=== PATIENT | female | born 1950 | race Caucasian/White ===

== ENCOUNTER 2018-11-14 09:57 | Inpatient (IN) ==
[2018-11-14] MEDS ORDERED: 0.9 % Sodium Chloride 1,000 ML IVC ONE (10:21)
[2018-11-14 10:44] LABS: Basophils # 0.1 K/mcL (0.0-0.2); Basophils % 0.9 %; Eosinophils # 1.3 K/mcL (0.0-0.6); Eosinophils % 14.5 %; Hematocrit 33.7 % (35.3-44.9); Hemoglobin 10.6 g/dL (11.5-15.4); Immature Granulocytes % 0.2 % (0-4); Lymphocytes # 1.7 K/mcL (0.6-4.6); Lymphocytes % 19.3 %; Mean Corpuscular HGB Conc 31.5 g/dL (31.6-35.5); Mean Corpuscular Hemoglobin 26.7 pg (28.0-33.3); Mean Corpuscular Volume 84.9 fL (83.0-100.0); Mean Platelet Volume 9.6 fL (9.4-12.4); Monocytes # 0.5 K/mcL (0.0-1.3); Monocytes % 5.6 %; Neutrophils # 5.3 K/mcL (1.6-8.9); Platelet Count 279 K/mcL (140-400); Red Blood Count 3.97 M/mcL (3.82-4.97); Red Cell Distribution Width 14.5 % (11.5-14.5); Segmented Neutrophils % 59.5 %
[2018-11-14 10:46] LABS: VBG Ionized Calcium 1.19 mmol/L (1.15-1.35)
[2018-11-14 10:52] LABS: Bilirubin,Urine Negative (Negative); Blood,Urine Negative (Negative); Clarity,Urine Clear (Clear); Color,Urine Yellow (Yellow); Glucose,Urine (UA) Normal (Normal); Ketones,Urine Negative (Negative); Leukocyte Esterase,Urine Negative (Negative); Nitrite,Urine Negative (Negative); Protein,Urine 30 mg/dL (Neg-Trace); Specific Gravity,Urine 1.012 (1.010-1.025); Urobilinogen,Urine Normal (Normal)
[2018-11-14 10:53] LABS: Hyaline Casts,Urine None Seen per lpf (None-Few); Squamous Epithelial Cell,Urine Many per lpf (None-Few); WBC,Urine 0-3 per hpf (0-3)
--- NOTE | 2018-11-14 10:56 | Emergency Department Note ---
Disposition Clinical Impression: Elevated troponin, BJ (acute kidney injury), Weakness Disposition: Admitted As Inpatient Condition: Fair Forms: ED Satisfaction Letter Time of Disposition: 11:37 General Adult HPI - General Chief complaint: ED Recheck/Abnormal Lab/Rx Stated complaint: Kidneys are low Time Seen by Provider: 11/14/18 10:05 Source: patient, family Mode of arrival: private vehicle Limitations: no limitations Nursing Notes Reviewed: Yes Vital Signs Reviewed: Yes - History of Present Illness HPI Narrative: Patient is a 68-year-old female with a past medical history of high blood pressure, COPD, remote history of lung cancer with lung resection of the left upper lobe, recent left heart catheter performed here 1 month ago, that has not felt well since the heart catheter. Patient was seen at her PCPs office for some blood work within the last few days, blood work came back this morning and PCP called her to tell her that her kidney function was low and that she should report to the emergency department. Patient states she does not think she has a history of any kidney disease. She states that she has been feeling "weak, washed out" since the procedure. She is complaining of a headache, intermittent stomach pains, one episode of vomiting a couple of days ago, intermittent fevers that she has not measured within the last couple of days, and feels like she cannot hold herself up if she walks too far. Pain Scale: 0 - Related Data Home Medications Medication Instructions Recorded Confirmed Acetylcysteine 600 mg PO BID 10/21/18 10/21/18 [[id number]-[id number]] Atenolol [Tenormin] 50 mg PO DAILY 10/21/18 10/21/18 Clopidogrel [Plavix] 75 mg PO DAILY 10/21/18 10/21/18 Fluticasone/Salmeterol [Advair 1 each IH BID 10/21/18 10/21/18 250-50 Diskus] Ipratropium/Albuterol Neb [Duoneb] 3 ml IH Q6HR 10/21/18 10/21/18 LORazepam [Ativan] 1 mg PO TID PRN 10/21/18 10/21/18 Levothyroxine [Synthroid] 75 mcg PO 0630 10/21/18 10/21/18 Losartan Potassium [Cozaar] 50 mg PO BID 10/21/18 10/21/18 Omeprazole [PriLOSEC] 20 mg PO DAILY 10/21/18 10/21/18 amLODIPine [Norvasc] 5 mg PO DAILY 10/21/18 10/21/18 Previous Rx's Medication Instructions Recorded Meclizine HCl [Verticalm] 25 mg PO BID PRN #10 tablet 01/29/18 Aspirin 81 mg PO DAILY #30 tab.chew 10/22/18 Atorvastatin [Lipitor] 40 mg PO HS #30 tablet 10/22/18 Azithromycin [Zithromax] 500 mg PO DAILY #5 tablet 10/22/18 predniSONE [PredniSONE] 40 mg PO DAILY #5 tablet 10/22/18 Allergies Allergy/AdvReac Type Severity Reaction Status Date / Time doxycycline Allergy Rash Verified 10/21/18 16:25 Sulfa (Sulfonamide Allergy Rash Verified 10/21/18 16:25 Antibiotics) codeine AdvReac Nausea Verified 10/21/18 16:25 hydrocodone [From Vicodin] AdvReac Irritable Verified 10/21/18 16:25 Review of Systems: All systems ED: reviewed and negative except as stated. Constitutional: Denies: chills Reports: intermittent subjective fevers ENT ED: Denies: ear pain, throat pain Cardiovascular: Denies: chest pain, palpitations Respiratory: Reports: dry cough, dyspnea Gastrointestinal: Denies: constipation Reports: intermittent abdominal pain, intermittent nausea, one episode of vomiting a few days ago, daily diarrhea 2-3 episodes per day, Genitourinary: Denies: urgency, dysuria, frequency Musculoskeletal: Denies: back pain, neck pain Integumentary: Denies: rash, abrasion Neurological: Denies: headache, numbness, paresthesias Reports: weakness Psychiatric: Denies: anxiety, depression Endocrine: Denies: fatigue, heat or cold intolerance Hematological/Lymphatic: Denies: easy bleeding, easy bruising Allergic/Immunologic: Denies: facial swelling, urticaria Past Medical History - Past Medical History Medical history: Reports: asthma, COPD, CVA, hypertension, other Surgical history: Reports: appendectomy, cholecystectomy Psychiatric history: Reports: anxiety - Social History Smoking Status: Current every day smoker Smokeless Tobacco Status: No Alcohol use: Reports: none Drug use: Reports: none Physical Exam General: A&O x 3. No acute distress. Well developed, thin female. Head: atraumatic, normocephalic. ENT: No conjunctival injection, no scleral icterus. PERRLA. EOMI. Oropharynx non- erythematous. mucous membranes tacky. Neuro: No focal deficits, no speech deficit, no facial droop, mentating well. BUE/BLE Str 5/5. Pulm: No lungs sounds over FLORENCIO, wheezes appreciated in LLL, diminished lung sounds on right side in both upper and lower castro Cardio: Extra heart sound appreciated with regular rate. Chest not tender to palpation. Abd: Soft, non-distended. Normoactive bowel sounds. Diffusely mildly tender to palpation. No guarding. Non rigid. Extremities: Radial pulses 2+ ira. No appreciable distal pulse in LLE but limb is warm, dry, well perfused and free of rashes and erythema, RLE has 2+ posterior tibialis. No LE edema. No cyanosis, clubbing. Skin: warm, dry, intact. No rashes. Psych: Appropriate mood and affect. Answers questions appropriately. Cooperative with exam. - General Limitations: no limitations General appearance: alert Course Course Narrative: Ddx includes but is not limited to: BJ, electrolyte abnormality, hypothyroid, anemia, UTI, PNA, ACS Workup will include: CBC, CMP, BNP, TSH, troponin, EKG, CXR. Will administer fluids. - Reevaluation(s) Reevaluation #1: Pt has positive troponin 0.05 and creatinine elevated 4.7 Time: 11:23 - Consultations Consultation #1: Spoke with Dr. Abdullahi, nephrology, and made him aware of pt's creatinine and elevated troponin and that she would be admitted. He recommended continued hydration and HD if hydration did not help. Time: 11:24 Consultation #2: Spoke with Dr. Mcdonnell, cardiology, and made him aware of pt's elevated troponin in setting of BJ and recent C 10/22/18. He had no recommendations at this time. Time: 11:28 Vital Signs Temperature 97.8 F 11/14/18 09:58 Pulse Rate 79 11/14/18 09:58 Respiratory Rate 18 11/14/18 09:58 Blood Pressure 152/82 11/14/18 09:58 O2 Sat by Pulse Oximetry 96 11/14/18 09:58 Temperature 97.8 F 11/14/18 09:58 Pulse Rate 73 11/14/18 11:28 Respiratory Rate 16 11/14/18 11:28 Blood Pressure 155/77 11/14/18 11:28 O2 Sat by Pulse Oximetry 97 11/14/18 11:28 Oxygen Delivery Oxygen Delivery Room Air Medical Decision Making - MDM Narrative Medical decision making narrative: Pt creatinine was elevated >4.7 and had positive troponin of 0.05 without hx of positive troponin in our system. Pt has acute kidney injury with elevated troponin. She is not having chest pain at this time. EKG does not show any signs concerning for ischemia. Nephrology and Cardiology were made aware, see course notes for full details. Pt was given an oral aspirin and 1L NaCl while in the department. Nephro recommends continued hydration with HD if hydration not effective. Patient was given an opportunity to ask questions at bedside and all of their concerns were addressed. Patient verbalized understanding and agreement with plan of care. Pt remained stable while in the department. - Medical Records Medical records reviewed: Yes I reviewed the patient's medical records. - Lab Data Lab results reviewed: Yes I reviewed the patient's lab results. Result diagrams: 11/14/18 10:24 11/14/18 10:24 Lab Results 11/14/18 11/14/18 11/14/18 Range/Units 10:13 10:24 10:24 WBC 8.9 (4.3-11.1) K/mcL RBC 3.97 (3.82-4.97) M/mcL Hgb 10.6 L (11.5-15.4) g/dL Hct 33.7 L (35.3-44.9) % MCV 84.9 (83.0-100.0) fL MCH 26.7 L (28.0-33.3) pg MCHC 31.5 L (31.6-35.5) g/dL RDW 14.5 (11.5-14.5) % Plt Count 279 (140-400) K/mcL MPV 9.6 (9.4-12.4) fL Immature Gran % 0.2 (0-4) % Seg Neutrophils % 59.5 % Lymphocytes % 19.3 % Monocytes % 5.6 % Eosinophils % 14.5 % Basophils % 0.9 % Neutrophils # 5.3 (1.6-8.9) K/mcL Lymphocytes # 1.7 (0.6-4.6) K/mcL Monocytes # 0.5 (0.0-1.3) K/mcL Eosinophils # 1.3 H (0.0-0.6) K/mcL Basophils # 0.1 (0.0-0.2) K/mcL Sodium 133 L (136-145) mEq/L Potassium 4.8 (3.5-5.1) mEq/L Chloride 102 (98-107) mEq/L Carbon Dioxide 22 L (23-29) mEq/L BUN 74 H (8-23) mg/dL Creatinine 4.73 H (0.60-1.20) mg/dL Est GFR ( Amer) 11 L (> 60) Est GFR (Non-Af Amer) 9 L (> 60) BUN/Creatinine Ratio 16 (6-26) Glucose 108 H (70-105) mg/dL Calculated Osmolality 298 (280-300) Lactic Acid (0.5-2.2) mmol/L Calcium 9.1 (8.6-10.3) mg/dL Venous Ioniz Calcium (1.15-1.35) mmol/L Phosphorus 5.0 H (2.7-4.5) mg/dL Magnesium 1.6 (1.6-2.6) mg/dL Total Bilirubin 0.4 (0.3-1.0) mg/dL AST 18 (13-39) Units/L ALT 16 (7-52) Units/L Alkaline Phosphatase 75 (34-104) Units/L Troponin I 0.05 H* (< 0.04) ng/mL Serum Total Protein 6.6 (6.4-8.9) g/dL Albumin 3.7 (3.5-5.7) g/dL Globulin 2.9 (2.4-3.5) g/dL Albumin/Globulin Ratio 1.3 (1.1-2.2) Lipase 44 (11-82) Units/L TSH 8.042 H (0.340-5.600) mcIU/mL Urine Color Yellow (Yellow) Urine Clarity Clear (Clear) Urine pH 6.0 (5.0-8.0) pH Units Ur Specific [place] 1.012 (1.010-1.025) Urine Protein 30 H (Neg-Trace) mg/dL Urine Glucose (UA) Normal (Normal) mg/dL Urine Ketones Negative (Negative) mg/dL Urine Blood Negative (Negative) Urine Nitrite Negative (Negative) Urine Bilirubin Negative (Negative) Urine Urobilinogen Normal (Normal) mg/dL Ur Leukocyte Esterase Negative (Negative) Urine Microscopic WBC 0-3 (0-3) per hpf Ur Squamous Epith Cells Many H (None-Few) per lpf Urine Bacteria Few (None-Few) per hpf Hyaline Casts None Seen (None-Few) per lpf Ur Culture Indicated? NO (NO) 11/14/18 11/14/18 Range/Units 10:37 10:42 WBC (4.3-11.1) K/mcL RBC (3.82-4.97) M/mcL Hgb (11.5-15.4) g/dL Hct (35.3-44.9) % MCV (83.0-100.0) fL MCH (28.0-33.3) pg MCHC (31.6-35.5) g/dL RDW (11.5-14.5) % Plt Count (140-400) K/mcL MPV (9.4-12.4) fL Immature Gran % (0-4) % Seg Neutrophils % % Lymphocytes % % Monocytes % % Eosinophils % % Basophils % % Neutrophils # (1.6-8.9) K/mcL Lymphocytes # (0.6-4.6) K/mcL Monocytes # (0.0-1.3) K/mcL Eosinophils # (0.0-0.6) K/mcL Basophils # (0.0-0.2) K/mcL Sodium (136-145) mEq/L Potassium (3.5-5.1) mEq/L Chloride (98-107) mEq/L Carbon Dioxide (23-29) mEq/L BUN (8-23) mg/dL Creatinine (0.60-1.20) mg/dL Est GFR ( Amer) (> 60) Est GFR (Non-Af Amer) (> 60) BUN/Creatinine Ratio (6-26) Glucose (70-105) mg/dL Calculated Osmolality (280-300) Lactic Acid 0.8 (0.5-2.2) mmol/L Calcium (8.6-10.3) mg/dL Venous Ioniz Calcium 1.19 (1.15-1.35) mmol/L Phosphorus (2.7-4.5) mg/dL Magnesium (1.6-2.6) mg/dL Total Bilirubin (0.3-1.0) mg/dL AST (13-39) Units/L ALT (7-52) Units/L Alkaline Phosphatase (34-104) Units/L Troponin I (< 0.04) ng/mL Serum Total Protein (6.4-8.9) g/dL Albumin (3.5-5.7) g/dL Globulin (2.4-3.5) g/dL Albumin/Globulin Ratio (1.1-2.2) Lipase (11-82) Units/L TSH (0.340-5.600) mcIU/mL Urine Color (Yellow) Urine Clarity (Clear) Urine pH (5.0-8.0) pH Units Ur Specific [place] (1.010-1.025) Urine Protein (Neg-Trace) mg/dL Urine Glucose (UA) (Normal) mg/dL Urine Ketones (Negative) mg/dL Urine Blood (Negative) Urine Nitrite (Negative) Urine Bilirubin (Negative) Urine Urobilinogen (Normal) mg/dL Ur Leukocyte Esterase (Negative) Urine Microscopic WBC (0-3) per hpf Ur Squamous Epith Cells (None-Few) per lpf Urine Bacteria (None-Few) per hpf Hyaline Casts (None-Few) per lpf Ur Culture Indicated? (NO) - Radiology Data Radiology results reviewed: Yes I reviewed the patient's radiology results. Chest X-Ray 11/14/18 10:21 IMPRESSION: Stable tiny bilateral pleural effusions and mild pulmonary vascular congestion D/ / Ifeanyi Morrell MD / Ifeanyi Morrell MD Interpreting Provider: Ifeanyi Morrell MD - EKG Data EKG #1 EKG attestation: Yes I reviewed and interpreted this EKG. EKG results narrative: HR 70, rhythm sinus, axis normal. ID [id number], QRS 89, QTc 450. No evidence of clinically significant ST elevation or depression. No criteria for LVH.
[2018-11-14 11:06] LABS: Bacteria,Urine Few per hpf (None-Few)
[2018-11-14 11:15] LABS: Albumin 3.7 g/dL (3.5-5.7); Albumin/Globulin Ratio 1.3 (1.1-2.2); Bilirubin,Total 0.4 mg/dL (0.3-1.0); Calcium 9.1 mg/dL (8.6-10.3); Globulin 2.9 g/dL (2.4-3.5); Magnesium 1.6 mg/dL (1.6-2.6); Potassium 4.8 mEq/L (3.5-5.1); Total Protein 6.6 g/dL (6.4-8.9); Troponin I 0.05 ng/mL (< 0.04)
[2018-11-14] MEDS ORDERED: Aspirin 325 MG TABLET PO ONE (11:15)
[2018-11-14 11:27] LABS: Thyroid Stimulating Hormone 8.042 mcIU/mL (0.340-5.600)
[2018-11-14] MEDS ORDERED: Naloxone 0.4 MG/ML INJ IVP PRN (11:34)
--- NOTE | 2018-11-14 12:10 | Emergency Department Note ---
Disposition Clinical Impression: Elevated troponin, BJ (acute kidney injury), Weakness Disposition: Admitted As Inpatient Condition: Fair Referrals: Topete,Patricia Dick CNP [Primary Care Provider] - Forms: ED Satisfaction Letter General Adult HPI - General Chief complaint: ED Recheck/Abnormal Lab/Rx Stated complaint: Kidneys are low Time Seen by Provider: 11/14/18 10:05 Source: patient, family Mode of arrival: private vehicle Limitations: no limitations - History of Present Illness Pain Scale: 0 - Related Data Home Medications Medication Instructions Recorded Confirmed Atenolol [Tenormin] 50 mg PO DAILY 10/21/18 11/14/18 Clopidogrel [Plavix] 75 mg PO DAILY 10/21/18 11/14/18 Fluticasone/Salmeterol [Advair 1 puff IH BID 10/21/18 11/14/18 250-50 Diskus] LORazepam [Ativan] 1 mg PO TID 10/21/18 11/14/18 Levothyroxine [Synthroid] 75 mcg PO QAM 10/21/18 11/14/18 Losartan Potassium [Cozaar] 50 mg PO BID 10/21/18 11/14/18 Omeprazole [PriLOSEC] 20 mg PO DAILY 10/21/18 11/14/18 amLODIPine [Norvasc] 5 mg PO DAILY 10/21/18 11/14/18 Albuterol Sulfate [Ventolin Hfa] 2 puff IH Q4H PRN 11/14/18 11/14/18 Aspirin [Adult Aspirin Regimen] 81 mg PO DAILY 11/14/18 11/14/18 Ipratropium [place] 1 each IH Q4-6H PRN 11/14/18 11/14/18 Ipratropium/Albuterol Sulfate 3 ml IH Q6H PRN 11/14/18 11/14/18 [Iprat-Albut 0.5-3(2.5) mg/3 ml] Previous Rx's Medication Instructions Recorded Meclizine HCl [Verticalm] 25 mg PO BID PRN #10 tablet 01/29/18 Allergies Allergy/AdvReac Type Severity Reaction Status Date / Time atorvastatin Allergy See Verified 11/14/18 11:40 Comments doxycycline Allergy Rash Verified 10/21/18 16:25 Sulfa (Sulfonamide Allergy Rash Verified 10/21/18 16:25 Antibiotics) codeine AdvReac Nausea Verified 10/21/18 16:25 hydrocodone [From Vicodin] AdvReac Irritable Verified 10/21/18 16:25 Past Medical History - Past Medical History Medical history: Reports: asthma, COPD, CVA, hypertension, other Surgical history: Reports: appendectomy, cholecystectomy Psychiatric history: Reports: anxiety - Social History Smoking Status: Current every day smoker Smokeless Tobacco Status: No Alcohol use: Reports: none Drug use: Reports: none Physical Exam - General Limitations: no limitations General appearance: alert Course Vital Signs Temperature 97.8 F 11/14/18 09:58 Pulse Rate 79 11/14/18 09:58 Respiratory Rate 18 11/14/18 09:58 Blood Pressure 152/82 11/14/18 09:58 O2 Sat by Pulse Oximetry 96 11/14/18 09:58 Temperature 97.8 F 11/14/18 09:58 Pulse Rate 73 11/14/18 11:28 Respiratory Rate 16 11/14/18 11:28 Blood Pressure 155/77 11/14/18 11:28 O2 Sat by Pulse Oximetry 97 11/14/18 11:28 Oxygen Delivery Oxygen Delivery Room Air Medical Decision Making - Lab Data Result diagrams: 11/14/18 10:24 11/14/18 10:24 Lab Results 11/14/18 11/14/18 11/14/18 Range/Units 10:13 10:24 10:24 WBC 8.9 (4.3-11.1) K/mcL RBC 3.97 (3.82-4.97) M/mcL Hgb 10.6 L (11.5-15.4) g/dL Hct 33.7 L (35.3-44.9) % MCV 84.9 (83.0-100.0) fL MCH 26.7 L (28.0-33.3) pg MCHC 31.5 L (31.6-35.5) g/dL RDW 14.5 (11.5-14.5) % Plt Count 279 (140-400) K/mcL MPV 9.6 (9.4-12.4) fL Immature Gran % 0.2 (0-4) % Seg Neutrophils % 59.5 % Lymphocytes % 19.3 % Monocytes % 5.6 % Eosinophils % 14.5 % Basophils % 0.9 % Neutrophils # 5.3 (1.6-8.9) K/mcL Lymphocytes # 1.7 (0.6-4.6) K/mcL Monocytes # 0.5 (0.0-1.3) K/mcL Eosinophils # 1.3 H (0.0-0.6) K/mcL Basophils # 0.1 (0.0-0.2) K/mcL Sodium 133 L (136-145) mEq/L Potassium 4.8 (3.5-5.1) mEq/L Chloride 102 (98-107) mEq/L Carbon Dioxide 22 L (23-29) mEq/L BUN 74 H (8-23) mg/dL Creatinine 4.73 H (0.60-1.20) mg/dL Est GFR ( Amer) 11 L (> 60) Est GFR (Non-Af Amer) 9 L (> 60) BUN/Creatinine Ratio 16 (6-26) Glucose 108 H (70-105) mg/dL Calculated Osmolality 298 (280-300) Lactic Acid (0.5-2.2) mmol/L Calcium 9.1 (8.6-10.3) mg/dL Venous Ioniz Calcium (1.15-1.35) mmol/L Phosphorus 5.0 H (2.7-4.5) mg/dL Magnesium 1.6 (1.6-2.6) mg/dL Total Bilirubin 0.4 (0.3-1.0) mg/dL AST 18 (13-39) Units/L ALT 16 (7-52) Units/L Alkaline Phosphatase 75 (34-104) Units/L Troponin I 0.05 H* (< 0.04) ng/mL B-Natriuretic Peptide (Less than 100) pg/mL Serum Total Protein 6.6 (6.4-8.9) g/dL Albumin 3.7 (3.5-5.7) g/dL Globulin 2.9 (2.4-3.5) g/dL Albumin/Globulin Ratio 1.3 (1.1-2.2) Lipase 44 (11-82) Units/L TSH 8.042 H (0.340-5.600) mcIU/mL Urine Color Yellow (Yellow) Urine Clarity Clear (Clear) Urine pH 6.0 (5.0-8.0) pH Units Ur Specific [place] 1.012 (1.010-1.025) Urine Protein 30 H (Neg-Trace) mg/dL Urine Glucose (UA) Normal (Normal) mg/dL Urine Ketones Negative (Negative) mg/dL Urine Blood Negative (Negative) Urine Nitrite Negative (Negative) Urine Bilirubin Negative (Negative) Urine Urobilinogen Normal (Normal) mg/dL Ur Leukocyte Esterase Negative (Negative) Urine Microscopic WBC 0-3 (0-3) per hpf Ur Squamous Epith Cells Many H (None-Few) per lpf Urine Bacteria Few (None-Few) per hpf Hyaline Casts None Seen (None-Few) per lpf Ur Culture Indicated? NO (NO) 11/14/18 11/14/18 11/14/18 Range/Units 10:24 10:37 10:42 WBC (4.3-11.1) K/mcL RBC (3.82-4.97) M/mcL Hgb (11.5-15.4) g/dL Hct (35.3-44.9) % MCV (83.0-100.0) fL MCH (28.0-33.3) pg MCHC (31.6-35.5) g/dL RDW (11.5-14.5) % Plt Count (140-400) K/mcL MPV (9.4-12.4) fL Immature Gran % (0-4) % Seg Neutrophils % % Lymphocytes % % Monocytes % % Eosinophils % % Basophils % % Neutrophils # (1.6-8.9) K/mcL Lymphocytes # (0.6-4.6) K/mcL Monocytes # (0.0-1.3) K/mcL Eosinophils # (0.0-0.6) K/mcL Basophils # (0.0-0.2) K/mcL Sodium (136-145) mEq/L Potassium (3.5-5.1) mEq/L Chloride (98-107) mEq/L Carbon Dioxide (23-29) mEq/L BUN (8-23) mg/dL Creatinine (0.60-1.20) mg/dL Est GFR ( Amer) (> 60) Est GFR (Non-Af Amer) (> 60) BUN/Creatinine Ratio (6-26) Glucose (70-105) mg/dL Calculated Osmolality (280-300) Lactic Acid 0.8 (0.5-2.2) mmol/L Calcium (8.6-10.3) mg/dL Venous Ioniz Calcium 1.19 (1.15-1.35) mmol/L Phosphorus (2.7-4.5) mg/dL Magnesium (1.6-2.6) mg/dL Total Bilirubin (0.3-1.0) mg/dL AST (13-39) Units/L ALT (7-52) Units/L Alkaline Phosphatase (34-104) Units/L Troponin I (< 0.04) ng/mL B-Natriuretic Peptide 371 H (Less than 100) pg/mL Serum Total Protein (6.4-8.9) g/dL Albumin (3.5-5.7) g/dL Globulin (2.4-3.5) g/dL Albumin/Globulin Ratio (1.1-2.2) Lipase (11-82) Units/L TSH (0.340-5.600) mcIU/mL Urine Color (Yellow) Urine Clarity (Clear) Urine pH (5.0-8.0) pH Units Ur Specific [place] (1.010-1.025) Urine Protein (Neg-Trace) mg/dL Urine Glucose (UA) (Normal) mg/dL Urine Ketones (Negative) mg/dL Urine Blood (Negative) Urine Nitrite (Negative) Urine Bilirubin (Negative) Urine Urobilinogen (Normal) mg/dL Ur Leukocyte Esterase (Negative) Urine Microscopic WBC (0-3) per hpf Ur Squamous Epith Cells (None-Few) per lpf Urine Bacteria (None-Few) per hpf Hyaline Casts (None-Few) per lpf Ur Culture Indicated? (NO) Attestation Statement - Attestation Attestation: I examined this patient and my medical decision-making was reviewed with the Resident Physician. I agree with the documented findings, disposition and treatment plan as described except to the extent set forth below. 68 year old female presents to the ED with complaints of acute kidney failure. She has been feeling fatigue and weaknes nd recently had a heart cath at the end of september with the result of one stent. Patinet otherwise has new kidney failure with an elevate troponin. potassium is normal. we have started IVF hydration. consulted nephroogy with Dr. Abdullahi who reccs IVF and possible dialysis if it does not improve. They are in the belief system of the [employer] and do not wish to have blood products or transfusions. They have acceptd admission to the hospital today. admiteed to medicine
--- NOTE | 2018-11-14 12:59 | Internal Med History&Physical ---
Date of Encounter: 11/14/18 Time of Encounter: 12:53 Internal Medicine - H&P: HPI Chief complaint: worsening kidney function Admitted From: Home History of present illness: Ms. Weeks is a 68 year old female PMH of CAD s/p [facility] on October 22, HLD, hypothyroidism, COPD on 2 litters of O2 at home at night, and HTN. Patient presented to the ED due to worsening kidney function. Patient reports on October 22 she had an LCH and the following day was discharged home. After being discharged she reports worsening generalized weakness, reports it is hard for her to walk because she feels like her legs are going to give up on her due to the weakness. She also reports she has not been eating well, because she feels very nauseated. Reports she went to see her PCP yesterday due to this symptoms and had some blood work done and was discharged home. Today she received a call from her PCP office instructing her to go to the ED due to worsening kidney function. Her creat on DC on was 1.52, today 4.73. Patient reports good urinary output. Denies diarrhea, but reports increase bowel frequency to 2-3 loose stool a day. denies abdominal pain, fever or chills. Past Med Surg Social Fam HX - Past Medical History Medical history: asthma, COPD, CVA, hypertension, other Additional medical history: heart cath , heart stent, lung cancer Psychiatric history: anxiety - Past Surgical History Surgical History: appendectomy, cholecystectomy Additional surgical history: upper left lobe removed, stents x3 - Social History Smoking Status: Current every day smoker Smokeless Tobacco Status: No Alcohol use: none Drug use: none Internal Medicine - H&P: Meds Meclizine HCl [Verticalm] 25 mg PO BID PRN #10 tablet 01/29/18 [Rx] Atenolol [Tenormin] 50 mg PO DAILY 10/21/18 [History] Clopidogrel [Plavix] 75 mg PO DAILY 10/21/18 [History] Fluticasone/Salmeterol [Advair 250-50 Diskus] 1 puff IH BID 10/21/18 [History] LORazepam [Ativan] 1 mg PO TID 10/21/18 [History] Levothyroxine [Synthroid] 75 mcg PO QAM 10/21/18 [History] Losartan Potassium [Cozaar] 50 mg PO BID 10/21/18 [History] Omeprazole [PriLOSEC] 20 mg PO DAILY 10/21/18 [History] amLODIPine [Norvasc] 5 mg PO DAILY 10/21/18 [History] Albuterol Sulfate [Ventolin Hfa] 2 puff IH Q4H PRN 11/14/18 [History] Aspirin [Adult Aspirin Regimen] 81 mg PO DAILY 11/14/18 [History] Ipratropium [place] 1 each IH Q4-6H PRN 11/14/18 [History] Ipratropium/Albuterol Sulfate [Iprat-Albut 0.5-3(2.5) mg/3 ml] 3 ml IH Q6H PRN 11/14/18 [History] Allergy/AdvReac Type Severity Reaction Status Date / Time atorvastatin Allergy See Verified 11/14/18 11:40 Comments doxycycline Allergy Rash Verified 10/21/18 16:25 Sulfa (Sulfonamide Allergy Rash Verified 10/21/18 16:25 Antibiotics) codeine AdvReac Nausea Verified 10/21/18 16:25 hydrocodone [From Vicodin] AdvReac Irritable Verified 10/21/18 16:25 All Systems PM: A 10-system review of systems was performed and is negative for pertinent findings except as documented above in the HPI. - Constitutional Constitutional: weakness, no chills, no lethargy - EENT Eyes: no dry eye, no irritation Nose, mouth and throat: no nasal congestion - Cardiovascular Cardiovascular ROS IM: no chest pain, no dyspnea on exertion, no edema, no lightheadedness, no orthopnea, no palpitations - Respiratory Respiratory: no cough, no wheezing - Gastrointestinal Gastrointestinal: no abdominal pain, no nausea, no vomiting - Genitourinary Genitourinary: no dysuria, no urinary frequency, no urinary hesitancy, no urinary urgency, no vaginal discharge - Musculoskeletal Musculoskeletal ROS IM: muscle weakness, no atrophy, no muscle cramps - Integumentary Integumentary IM: no rash, no jaundice - Neurological Neurological ROS: no confusion, no headache(s) - Psychiatric Psychiatric: no anxiety, no irritability - Endocrine Endocrine IM: no cold intolerance, no excessive sweating - Hematologic/Lymphatic Hematologic/Lymphatic: no easy bleeding - Allergic/Immunologic Allergic/Immunologic: no GI upset with certain foods - Constitutional Vitals: Temp Pulse Resp BP Pulse Ox 97.8 F 73 16 166/84 99 11/14/18 09:58 11/14/18 12:18 11/14/18 12:18 11/14/18 12:18 11/14/18 12:18 Exam: Vitals: reviewed General: Alert and oriented x4. In mild distress due to generalized weakness Skin: Normal color, no rash, no lesions. HEENT: EOM, pupils equal, round and reactive. Cardiovascular: RRR, normal S1 & S2, no rubs, murmurs or gallops. No JVD. Pulse regular. Lungs: CTA b/l , no wheezes or crackles. Abdomen: Soft, non-tender, no rigidity. Extremities: No deformity, no edema or tenderness, no joint swelling or clubbing. Neurological:Normal cognition and motor skills. Rest of the physical exam is non contributory Internal Med - H&P Results - Labs CBC & Chem 7: 11/14/18 10:24 11/14/18 10:24 Labs: Short CBC 11/14/18 Range/Units 10:24 WBC 8.9 (4.3-11.1) K/mcL Hgb 10.6 L (11.5-15.4) g/dL Hct 33.7 L (35.3-44.9) % Plt Count 279 (140-400) K/mcL Neutrophils # 5.3 (1.6-8.9) K/mcL BMP 11/14/18 10:24 Sodium 133 L Potassium 4.8 Chloride 102 Carbon Dioxide 22 L BUN 74 H Creatinine 4.73 H Glucose 108 H Calcium 9.1 Cardiac Enzymes 11/14/18 Range/Units 10:24 Troponin I 0.05 H* (< 0.04) ng/mL Liver Function 11/14/18 Range/Units 10:24 Total Bilirubin 0.4 (0.3-1.0) mg/dL AST 18 (13-39) Units/L ALT 16 (7-52) Units/L Alkaline Phosphatase 75 (34-104) Units/L Albumin 3.7 (3.5-5.7) g/dL Urine 11/14/18 Range/Units 10:13 Urine Color Yellow (Yellow) Urine Clarity Clear (Clear) Urine pH 6.0 (5.0-8.0) pH Units Ur Specific [place] 1.012 (1.010-1.025) Urine Protein 30 H (Neg-Trace) mg/dL Urine Glucose (UA) Normal (Normal) mg/dL - Impressions ITS Impressions Chest X-Ray 11/14/18 10:21 IMPRESSION: Stable tiny bilateral pleural effusions and mild pulmonary vascular congestion D/ / Ifeanyi Morrell MD / Ifeanyi Morrell MD Interpreting Provider: Ifeanyi Morrell MD - Diagnostic Studies Chest x-ray Status: image reviewed by me (small b/l pleural effusion) - Assessment and Plan (1) BJ (acute kidney injury) Current Visit: Yes Status: Acute Assessment and plan: Possible secondary to contrast induced, versus decreased by mouth intake. Plan avoid nephrotoxic medications started on IV hydration with NS @75ml/hr Urine electrolytes CPK and uric acid ordered retro-peritoneal us strict intake and output nephrology consulted recommendations appreciated (2) COPD (chronic obstructive pulmonary disease) Current Visit: Yes Status: Chronic Assessment and plan: Patient not on acute exacerbation. Bronchodilators Q4RT when necessary. Qualifiers: COPD type: unspecified COPD Qualified Code(s): J44.9 - Chronic obstructive pulmonary disease, unspecified (3) HTN (hypertension) Current Visit: Yes Status: Chronic Assessment and plan: Blood pressure suboptimally controlled. Goal blood pressure less than 140. Started on atenolol 50 mg by mouth daily and amlodipine 5 mg by mouth. home medication. Hold losartan due to worsening kidney function. Qualifiers: Hypertension type: unspecified Qualified Code(s): I10 - Essential (primary) hypertension (4) Hypothyroidism Current Visit: Yes Status: Chronic Assessment and plan: Patient on levothyroxine 75mcg/PO daily. TSH elevated. Levothyroxine dose needs to be adjusted. Qualifiers: Hypothyroidism type: unspecified Qualified Code(s): E03.9 - Hypothyroidism, unspecified (5) DVT prophylaxis Current Visit: Yes Status: Chronic Assessment and plan: Started on heparin subcutaneous. (6) CAD (coronary artery disease) Current Visit: No Status: Chronic Assessment and plan: Patient is on clopidogrel 75 mg by mouth daily. Qualifiers: Coronary Disease-Associated Artery/Lesion type: [place] artery [place] vs. transplanted heart: [place] heart Associated angina: without angina Qualified Code(s): I25.10 - Atherosclerotic heart disease of [place] coronary artery without angina pectoris - Time Spent With Patient Total time spent is greater than 50% in coordination of care (as documented) at patient's floor/unit and/or counseling patient: Greater than 35 minutes (45)
[2018-11-14] MEDS: 0.9 % Sodium Chloride 1,000 ML IVC SCH (13:13)
[2018-11-14] MEDS ORDERED: Ondansetron ODT 4 MG TAB.RAPDIS SL ONE (13:14)
--- NOTE | 2018-11-14 14:43 | Cardiology Consult Note ---
<Alex Mendes - Last Filed: 11/14/18 15:47> Date of Encounter: 11/14/18 Time of Encounter: 14:40 Assessment and Plan (1) BJ (acute kidney injury) Current Visit: Yes Status: Acute Per Cardiology: Appears to have BJ on CKD. Creat went from 1.5 to 4.7. Nephrology consult pending. (2) Elevated troponin Current Visit: Yes Status: Acute Per Cardiology: Trop 0.05-- s/p stenting a few weeks ago and now with BJ on CKD. CP free. Suspect type II demand ischemia. No cardiac rehabilitation consult warranted. ECHO 04/2018: Impressions: LVEF 60%. Normal LV chamber size, wall thickness and systolic function. Normal right ventricular structure and function. No significant valvular dysfunction. We will cycle troponins and check a limited echo. Discussed and reviewed with Dr. Mcdonnell. Discussion w patient/family: The assessment and plan as outlined above was discussed with the patient and/or family members who expressed understanding and agreement. All questions were answered. Thank you for involving us in the care of your patient. Please call with any questions. History of Present Illness Consult date: 11/14/18 Requesting physician: Jason Rodarte Consult reason: Trop Chief complaint: Weakness History of present illness: Ms. Weeks is a 68 year old female with a relevant past medical history of nicotine abuse, COPD, remote history of lung cancer, HTN, HLD, history of CVA, hypothyroidism, anxiety, fibromyalgia, thoracic ascending aortic aneurysm. Cardiology consult for troponin elevation. Patient seen with at bedside. Reports underwent recent catheterization with stenting a few weeks ago. Since procedure has expressed decreased overall appetite and overall decreased by mouth intake. She reports generalized weakness. She denies any chest pain, dizziness, palpitations, syncope, falls. Denies any active bleeding or blood loss. Reports compliance of medications. Reports short of breath at rest and with exertion about baseline and utilizes oxygen at home. Reports seen by PCP with lab work ordered and told to come to ER based on lab results. Past Med Surg Social Fam HX - Past Medical History Attestation: Yes The following information was validated with the patient. Source: patient, old records reviewed Medical history: asthma, COPD, CVA, hypertension, other Additional medical history: heart cath , heart stent, lung cancer Psychiatric history: anxiety - Past Surgical History Surgical History: appendectomy, cholecystectomy Additional surgical history: upper left lobe removed, stents x3 - Social History Smoking Status: Current every day smoker Smokeless Tobacco Status: No Alcohol use: none Drug use: none Medications and Allergies Meclizine HCl [Verticalm] 25 mg PO BID PRN #10 tablet 01/29/18 [Rx] Atenolol [Tenormin] 50 mg PO DAILY 10/21/18 [History] Clopidogrel [Plavix] 75 mg PO DAILY 10/21/18 [History] Fluticasone/Salmeterol [Advair 250-50 Diskus] 1 puff IH BID 10/21/18 [History] LORazepam [Ativan] 1 mg PO TID 10/21/18 [History] Levothyroxine [Synthroid] 75 mcg PO QAM 10/21/18 [History] Losartan Potassium [Cozaar] 50 mg PO BID 10/21/18 [History] Omeprazole [PriLOSEC] 20 mg PO DAILY 10/21/18 [History] amLODIPine [Norvasc] 5 mg PO DAILY 10/21/18 [History] Albuterol Sulfate [Ventolin Hfa] 2 puff IH Q4H PRN 11/14/18 [History] Aspirin [Adult Aspirin Regimen] 81 mg PO DAILY 11/14/18 [History] Ipratropium [place] 1 each IH Q4-6H PRN 11/14/18 [History] Ipratropium/Albuterol Sulfate [Iprat-Albut 0.5-3(2.5) mg/3 ml] 3 ml IH Q6H PRN 11/14/18 [History] Allergy/AdvReac Type Severity Reaction Status Date / Time atorvastatin Allergy See Verified 11/14/18 11:40 Comments doxycycline Allergy Rash Verified 10/21/18 16:25 Sulfa (Sulfonamide Allergy Rash Verified 10/21/18 16:25 Antibiotics) codeine AdvReac Nausea Verified 10/21/18 16:25 hydrocodone [From Vicodin] AdvReac Irritable Verified 10/21/18 16:25 All Systems Review: The remainder of the systems were reviewed and are negative - Constitutional Constitutional: lethargy, weakness - Cardiovascular Cardiovascular: as per HPI - Gastrointestinal Gastrointestinal: nausea Physical Examination Vital Signs, Last 4 Hours Pulse Resp BP Pulse Ox 11/14/18 13:15 77 16 163/92 96 04/18/19 12:18 73 16 166/84 99 11/14/18 11:28 73 16 155/77 97 General: Conversant, No Apparent Distress HEENT: Atraumatic, Normocephaly, Mucus Membranes Moist Neck: No JVD, Normal carotid pulses Cardiac: Reg Rate and Rhythm, Normal S1 and S2, No Murmur Lungs: Normal Breath Sounds, No Wheeze, Rales, Rhonchi Neuro: Alert and responsive, No focal deficits noted Abdomen: Soft, Non-Tender Skin: No rashes noted on visualized skin Musculoskeletal: No Chest Wall Tenderness Extremities: No Clubbing, No Cyanosis, No Edema, Normal Pulses Results 11/14/18 10:24 11/14/18 10:24 Lab Results 11/14/18 11/14/18 11/14/18 10:24 10:24 10:24 WBC 8.9 Hgb 10.6 L Hct 33.7 L Plt Count 279 Sodium 133 L Potassium 4.8 Chloride 102 Carbon Dioxide 22 L BUN 74 H Creatinine 4.73 H Glucose 108 H Calcium 9.1 Magnesium 1.6 Total Bilirubin 0.4 AST 18 ALT 16 Alkaline Phosphatase 75 Troponin I 0.05 H* B-Natriuretic Peptide 371 H Lipase 44 TSH 8.042 H - Imaging and Cardiology Cardiac cath: report reviewed - EKG Interpretation EKG results cardiology: personally reviewed, no diagnostic ischemia Consult Discharge Plan - Plan Referrals: Patricia Topete, CRANE HOOKER [Primary Care Provider] - <Barney Mcdonnell - Last Filed: 11/14/18 16:22> Date of Encounter: 11/14/18 - Attending Attestation Patient was seen and evaluated independently by me. Findings, assessment and plan were discussed at length with patient, questions answered. Agree with nurse practitioner's/resident's documentation. Addition as follows, 68yoCF ho CAD ANUPAM-Diag 3 wks ago (mLAD 25%, pLCx 40%, RCA [employer] L-R collaterals), EF 60%. Other PMH: CVA, ascending Ao aneurysm 4.1cm, HTN, HLD, hypothyroidism, COPD. P/w generalized weakness, diarrhea, and poor po intake since [facility] (Constrast use 63ml, femoral). Consulted for trop 0.05. No ischemic ECG changes. Bun 74 Cr 4.7. No cp or worse dyspna from baseline or edema. A: BJ ( ddx INNA, atherothroembolic) ANUPAM-Diag 3 wks ago Mild troponin elevation, type II likely Lipitor intolerance P: cycle trop limited TTE c/w DAPT will need trial of statins other than lipitor renal consult Barney Mcdonnell MD, PhD Assessment and Plan Discussion w patient/family: The assessment and plan as outlined above was discussed with the patient and/or family members who expressed understanding and agreement. All questions were answered. Thank you for involving us in the care of your patient. Please call with any questions. History of Present Illness History of present illness: Ms. Weeks is a 68 year old female All Systems Review: The remainder of the systems were reviewed and are negative Physical Examination Vital Signs, Last 4 Hours Pulse Resp BP Pulse Ox 11/14/18 13:15 77 16 163/92 96 11/14/18 12:18 73 16 166/84 99 Results 11/14/18 10:24 11/14/18 10:24 Lab Results 11/14/18 11/14/18 11/14/18 10:24 10:24 10:24 WBC 8.9 Hgb 10.6 L Hct 33.7 L Plt Count 279 Sodium 133 L Potassium 4.8 Chloride 102 Carbon Dioxide 22 L BUN 74 H Creatinine 4.73 H Glucose 108 H Calcium 9.1 Magnesium 1.6 Total Bilirubin 0.4 AST 18 ALT 16 Alkaline Phosphatase 75 Troponin I 0.05 H* B-Natriuretic Peptide 371 H Lipase 44 TSH 8.042 H
--- NOTE | 2018-11-14 15:49 | Event Note ---
Date of Encounter: 11/14/18 Time of Encounter: 15:45 - Cardiology Event Note [facility] 09/2018: Lesion Findings/Interventions * Left Main Coronary Artery The LMCA is angiographically free of disease. * Left Anterior Descending There is a 25% stenosis in the Mid LAD. There is a 80% stenosis in the 1st Diagonal. The lesion has a LENNY flow of 3. An intervention was performed on the 1st Diagonal with a final stenosis of 0%. There were no lesion complications. The final LENNY flow was 3. * Circumflex There is a 40% stenosis in the Proximal Circumflex. * Right Coronary Artery RCA is known to be occluded. RCA not visualized during this procedure. There is a 100% stenosis in the Proximal RCA. The lesion has collaterals which feed from left to right. On aspirin, Plavix, statin, beta indira.
[2018-11-14] MEDS: *HR* Heparin 5,000 UNIT/ML VIAL SQ SCH (17:01)
[2018-11-14] MEDS: amLODIPine 5 MG TABLET PO SCH (17:21)
[2018-11-14] MEDS ORDERED: *HR* LORazepam 1 MG TABLET PO ONE (21:31)
[2018-11-14] MEDS: Ipratropium/Albuterol Neb 3 ML IH PRN (22:37)
[2018-11-15] MEDS: 0.9 % Sodium Chloride 1,000 ML IVC SCH (01:10)
[2018-11-15 04:19] LABS: Basophils # 0.1 K/mcL (0.0-0.2); Basophils % 0.6 %; Eosinophils # 1.2 K/mcL (0.0-0.6); Eosinophils % 12.4 %; Hematocrit 34.8 % (35.3-44.9); Hemoglobin 11.1 g/dL (11.5-15.4); Immature Granulocytes % 0.3 % (0-4); Lymphocytes # 1.9 K/mcL (0.6-4.6); Lymphocytes % 20.8 %; Mean Corpuscular HGB Conc 31.9 g/dL (31.6-35.5); Mean Corpuscular Volume 84.7 fL (83.0-100.0); Mean Platelet Volume 9.8 fL (9.4-12.4); Monocytes # 0.5 K/mcL (0.0-1.3); Neutrophils # 5.7 K/mcL (1.6-8.9); Platelet Count 293 K/mcL (140-400); Red Blood Count 4.11 M/mcL (3.82-4.97); Red Cell Distribution Width 14.6 % (11.5-14.5); Segmented Neutrophils % 60.9 %
[2018-11-15 04:33] LABS: Uric Acid 6.3 mg/dL (2.3-7.6)
[2018-11-15 04:35] LABS: Calcium 9.3 mg/dL (8.6-10.3); Magnesium 1.5 mg/dL (1.6-2.6); Phosphorous 4.3 mg/dL (2.7-4.5); Potassium 4.6 mEq/L (3.5-5.1)
[2018-11-15 04:55] LABS: Triiodothyronine (T3) Total 0.54 ng/mL (0.87-1.78)
[2018-11-15] MEDS: *HR* Heparin 5,000 UNIT/ML VIAL SQ SCH ×2 (05:25→18:01)
--- NOTE | 2018-11-15 08:14 | Cardiology Progress Note ---
Date of Encounter: 11/15/18 Time of Encounter: 08:15 Assessment and Plan (1) BJ (acute kidney injury) Current Visit: Yes Status: Acute Per Cardiology: Appears to have BJ on CKD. Creat went from 1.5 to 4.7. Nephrology consult pending. (2) Elevated troponin Current Visit: Yes Status: Acute Per Cardiology: Trop 0.05 and then 0.04 x 3-- s/p stenting a few weeks ago and now with BJ on CKD. CP free. Suspect type II demand ischemia. Echo pending. Discussion w patient/family: The assessment and plan as outlined above was discussed with the patient and/or family members who expressed understanding and agreement. All questions were answered. Thank you for involving us in the care of your patient. Please call with any questions. Subjective Principal diagnosis: BJ on CKD, mild trop Interval history: Denies any chest pain, shortness of breath, palpitations. Objective Vital Signs, Last 4 Hours Temp Pulse Resp BP Pulse Ox 11/15/18 06:55 97.7 F 84 22 182/80 90 General: Conversant, No Apparent Distress HEENT: Atraumatic, Normocephaly, Mucus Membranes Moist Neck: No JVD, Normal carotid pulses Cardiac: Reg Rate and Rhythm, Normal S1 and S2, No Murmur Lungs: Normal Breath Sounds, No Wheeze, Rales, Rhonchi Neuro: Alert and responsive, No focal deficits noted Abdomen: Soft, Non-Tender Skin: No rashes noted on visualized skin Musculoskeletal: No Chest Wall Tenderness Extremities: No Clubbing, No Cyanosis, No Edema, Normal Pulses Results 11/15/18 03:22 11/15/18 03:22 Lab Results Laboratory Tests 11/14/18 11/14/18 11/14/18 10:24 16:20 22:16 Hgb Hct Creatinine Est GFR (Non-Af Amer) Magnesium Troponin I 0.05 H* 0.04 H* 0.04 H* TSH 8.042 H Thyroxine (T4) 11/15/18 11/15/18 11/15/18 03:22 03:22 03:22 Hgb 11.1 L Hct 34.8 L Creatinine 4.51 H Est GFR (Non-Af Amer) 10 L Magnesium 1.5 L Troponin I 0.04 H* TSH Thyroxine (T4) 7.88 Impressions Chest X-Ray 11/14/18 10:21 IMPRESSION: Stable tiny bilateral pleural effusions and mild pulmonary vascular congestion D/ / Ifeanyi Morrell MD / Ifeanyi Morrell MD Interpreting Provider: Ifeanyi Morrell MD Retroperitoneum Ultrasound 11/14/18 13:24 IMPRESSION: Unremarkable ultrasound of the kidneys. D/ / 11/14/2018 15:31:44 Mindy Hernandez MD / alejandra Interpreting Provider: Mindy Hernandez MD Active Medications Albuterol/Ipratropium (Duoneb) 3 ml IH [id number] PRN PRN Reason: Shortness Of Breath/Wheezing Stop: 05/16/19 13:28 Last Admin: 11/14/18 22:37 Dose: 3 ml Amlodipine Besylate (Norvasc) 5 mg PO DAILY [facility]; Protocol Stop: 05/16/19 16:59 Last Admin: 11/14/18 17:21 Dose: 5 mg Atenolol (Tenormin) 50 mg PO DAILY [facility] Stop: 05/16/19 17:01 Last Admin: 11/14/18 17:21 Dose: 50 mg Clopidogrel Bisulfate (Plavix) 75 mg PO DAILY [facility] Stop: 05/16/19 11:46 Last Admin: 11/14/18 17:21 Dose: 75 mg Heparin Sodium (Porcine) (Heparin) 5,000 unit SQ Q12HCO [facility] Stop: 05/16/19 18:01 Last Admin: 11/15/18 05:25 Dose: 5,000 unit Sodium Chloride (0.9 % Sodium Chloride) 1,000 mls @ 75 mls/hr IVC .[id number] [facility] Stop: 05/16/19 11:46 Last Admin: 11/15/18 01:10 Dose: 75 mls/hr Levothyroxine Sodium (Synthroid) 75 mcg PO DAILY@0630 [facility] Stop: 05/17/19 06:31 Last Admin: 11/15/18 05:25 Dose: 75 mcg Naloxone HCl (Narcan) 0.4 mg IVP Q2M PRN PRN Reason: SEE COMMENTS Stop: 05/16/19 11:35 Tramadol HCl (Ultram) 50 mg PO Q6HR PRN PRN Reason: Moderate Pain Stop: 05/16/19 11:35 - Imaging and Cardiology Echo: pending Consult Discharge Plan - Plan Referrals: Efrem,Patricia Dick, PSYCHOLOGICAL ANTHROPOLOGIST [Primary Care Provider] -
[2018-11-15] MEDS: amLODIPine 5 MG TABLET PO SCH (08:16)
[2018-11-15] MEDS: Ringers Solution, Lactated 1,000 ML IVC SCH ×2 (08:29→18:02)
[2018-11-15] MEDS ORDERED: amLODIPine 5 MG TABLET PO SCH (09:00)
[2018-11-15] MEDS ORDERED: amLODIPine 5 MG TABLET PO ONE (09:15)
[2018-11-15] MEDS: Acetaminophen 325 MG TABLET PO PRN (10:12)
[2018-11-15] MEDS: Aspirin Enteric Coated 81 MG Tablet PO SCH (10:31)
--- NOTE | 2018-11-15 11:04 | Nephrology Consult Note ---
Date of Encounter: 11/15/18 Time of Encounter: 11:03 Assessment and Plan (1) Acute kidney injury superimposed on chronic kidney disease Current Visit: Yes Status: Acute The patient has acute kidney injury superimposed on chronic kidney disease that appears to be secondary to dehydration. She does not acutely need dialysis. I recommend avoiding unnecessary nephrotoxic agents. Adjust medications for renal function. Renal ultrasound is unremarkable. Patient renal function is starting to improve. I anticipate it will continue to improve with hydration. (2) COPD exacerbation Current Visit: No Status: Acute (3) CAD (coronary artery disease) Current Visit: Yes Status: Chronic Qualifiers: Coronary Disease-Associated Artery/Lesion type: [place] artery [place] vs. t ransplanted heart: [place] heart Associated angina: without angina Qualified Code(s): I25.10 - Atherosclerotic heart disease of [place] coronary artery without angina pectoris (4) HTN (hypertension) Current Visit: Yes Status: Chronic Titrate blood pressure medication as needed. If her renal function improves tomorrow day for adding back losartan. Qualifiers: Hypertension type: essential hypertension Qualified Code(s): I10 - Essential (primary) hypertension (5) Hypothyroidism Current Visit: Yes Status: Chronic Qualifiers: Hypothyroidism type: unspecified Qualified Code(s): E03.9 - Hypothyroidism, unspecified History of Present Illness - Reason for Consult Consult date: 11/15/18 Acute Kidney Injury - Chief Complaint jose - History of Present Illness Ms. Weeks is a 68-year-old woman with a history of chronic kidney disease who presents secondary to weakness and decreased appetite. She was found to have acute kidney injury superimposed on chronic kidney disease. [facility] was consult to assist with evaluation and management of her acute kidney injury. Patient was seen and evaluated. She is states she does not have chest pain, she has shortness of breath has been going on for a while. She denies nausea vomiting time my evaluation. She denies NSAID use. The remainder of her review of systems either negative or stable. Past Med Surg Social Fam HX - Past Medical History Medical history: asthma, COPD, CVA, hypertension, other Additional medical history: heart cath , heart stent, lung cancer Psychiatric history: anxiety - Past Surgical History Surgical History: appendectomy, cholecystectomy Additional surgical history: upper left lobe removed, stents x3 - Social History Smoking Status: Current every day smoker Smokeless Tobacco Status: No Alcohol use: none Drug use: none Medications and Allergies Meclizine HCl [Verticalm] 25 mg PO BID PRN #10 tablet 01/29/18 [Rx] Atenolol [Tenormin] 50 mg PO DAILY 10/21/18 [History] Clopidogrel [Plavix] 75 mg PO DAILY 10/21/18 [History] Fluticasone/Salmeterol [Advair 250-50 Diskus] 1 puff IH BID 10/21/18 [History] LORazepam [Ativan] 1 mg PO TID 10/21/18 [History] Levothyroxine [Synthroid] 75 mcg PO QAM 10/21/18 [History] Losartan Potassium [Cozaar] 50 mg PO BID 10/21/18 [History] Omeprazole [PriLOSEC] 20 mg PO DAILY 10/21/18 [History] amLODIPine [Norvasc] 5 mg PO DAILY 10/21/18 [History] Albuterol Sulfate [Ventolin Hfa] 2 puff IH Q4H PRN 11/14/18 [History] Aspirin [Adult Aspirin Regimen] 81 mg PO DAILY 11/14/18 [History] Ipratropium [place] 1 each IH Q4-6H PRN 11/14/18 [History] Ipratropium/Albuterol Sulfate [Iprat-Albut 0.5-3(2.5) mg/3 ml] 3 ml IH Q6H PRN 11/14/18 [History] Allergy/AdvReac Type Severity Reaction Status Date / Time atorvastatin Allergy See Verified 11/14/18 11:40 Comments doxycycline Allergy Rash Verified 10/21/18 16:25 Sulfa (Sulfonamide Allergy Rash Verified 10/21/18 16:25 Antibiotics) codeine AdvReac Nausea Verified 10/21/18 16:25 hydrocodone [From Vicodin] AdvReac Irritable Verified 10/21/18 16:25 Review of Systems All Systems: reviewed and no additional remarkable complaints except as stated (As documented in history of present illness) Exam - Vital Signs Vital signs: Initial Vital Signs Temp Pulse Resp BP Pulse Ox 97.8 F 79 18 152/82 96 11/14/18 09:58 11/14/18 09:58 11/14/18 09:58 11/14/18 09:58 11/14/18 09:58 Vital Signs - Last 8 Hours Temp Pulse Resp BP Pulse Ox 11/15/18 06:55 97.7 F 84 22 182/80 90 11/15/18 03:31 97.6 F 73 19 180/91 91 Intake and Output 11/14/18 11/15/18 11/15/18 23:59 07:59 15:59 Intake Total 1000 / 1000 1000 / 1000 361 / 361 Output Total 200 / 200 Balance 1000 / 1000 1000 / 1000 161 / 161 Intake: IV Fluids 1000 / 1000 1000 / 1000 221 / 221 0.9 % Sodium Chloride 1,000 ML 1000 / 1000 1000 / 1000 221 / 221 @ 75 mls/hr IVC .[id number] [facility] Rx #:[id number] Oral 140 / 140 Output: Urine 200 / 200 Other: Meal Breakfast Percent of Meal Consumed 50% Stool Size Moderate Stool Consistency soft formed Stool Characteristics Normal for Patient Stool Color Brown # Voids 1 Weight 64.5 kg - General Appearance General appearance: well-developed, well-nourished EENT: ATNC Neck: supple Respiratory: course breath sounds Cardiology: no edema, regular rate Gastrointestinal: no tenderness Integumentary: warm and dry Neurologic: alert and oriented x3 Musculoskeletal: no cyanosis Psychiatric: mood/affect appropriate Results - Lab Results 11/15/18 03:22 11/15/18 03:22 Most recent lab results Calcium 9.3 mg/dL (8.6-10.3) 11/15/18 03:22 Phosphorus 4.3 mg/dL (2.7-4.5) 11/15/18 03:22 Magnesium 1.5 mg/dL (1.6-2.6) L 11/15/18 03:22 Consult Discharge Plan - Plan Referrals: Patricia Topete ANTIQUE CLOCK REPAIRER [Primary Care Provider] -
--- NOTE | 2018-11-15 14:05 | Internal Med Progress Note ---
Hospitalist Progress Note - Encounter Date of Encounter: 11/15/18 Time of Encounter: 10:20 - Subjective Interval History: Patient is awake and alert. Denies any new complaints at this time. Does have tremors at baseline but reports that these have been more prominent over the past 3 weeks. Reports that she has had good urine output although it is not documented so far. No chest pain. No palpitations. No shortness of breath - Exam Vitals: Temp Pulse Resp BP Pulse Ox 98.6 F 79 18 164/93 93 11/15/18 11:05 11/15/18 11:05 11/15/18 11:05 11/15/18 11:05 11/15/18 11:05 Exam: General: Patient is alert, no acute distress, oriented x 3 ENT: Mucous membranes moist Respiratory: Good respiratory effort. Normal breath sounds. No wheezing or crackles. Cardiovascular: Regular rate and rhythm. s1 and s2 normal No clicks, rubs, gallops, or murmurs. No pedal edema Abdomen: Abdomen is soft, nontender. Bowel sounds are present Musculoskeletal: Spontaneously moving all extremities Skin: warm, dry, intact. Neuro: Alert oriented x 3 normal cranial nerves, no focal deficits - Assessment and Plan (1) BJ (acute kidney injury) Current Visit: Yes Status: Acute Assessment and Plan: Acute kidney injury due to ATN. Underlying chronic kidney disease stage III. Renal function is improving. We will continue IV fluids. Monitor urine output closely. High risk for complications. (2) CAD (coronary artery disease) Current Visit: Yes Status: Chronic Assessment and Plan: Continue aspirin, Plavix, tenormin. Patient is allergic to atorvastatin. (3) COPD (chronic obstructive pulmonary disease) Current Visit: Yes Status: Chronic Assessment and Plan: Not in acute exacerbation. Continue bronchodilators as needed (4) HTN (hypertension) Current Visit: Yes Status: Chronic Assessment and Plan: Blood pressure elevated but Tenormin dosage has been increased today. Will assess response. (5) Hypothyroidism Current Visit: Yes Status: Chronic Assessment and Plan: Continue levothyroxine (6) DVT prophylaxis Current Visit: Yes Status: Chronic Assessment and Plan: Continue subcutaneous heparin - Time Spent with Patient Total time spent is greater than 50% in coordination of care (as documented) at patient's floor/unit and/or counseling patient: Internal Medicine: Result - Labs CBC & Chem 7: 11/15/18 03:22 11/15/18 03:22 Labs: Short CBC 11/15/18 Range/Units 03:22 WBC 9.3 (4.3-11.1) K/mcL Hgb 11.1 L (11.5-15.4) g/dL Hct 34.8 L (35.3-44.9) % Plt Count 293 (140-400) K/mcL Neutrophils # 5.7 (1.6-8.9) K/mcL BMP 11/15/18 03:22 Sodium 136 Potassium 4.6 Chloride 103 Carbon Dioxide 23 BUN 63 H Creatinine 4.51 H Glucose 116 H Calcium 9.3 Cardiac Enzymes 11/14/18 11/14/18 11/15/18 Range/Units 16:20 22:16 03:22 Troponin I 0.04 H* 0.04 H* 0.04 H* (< 0.04) ng/mL - Impressions Impressions Retroperitoneum Ultrasound 11/14/18 13:24 IMPRESSION: Unremarkable ultrasound of the kidneys. D/ / 11/14/2018 15:31:44 Mindy Hernandez MD / alejandra Interpreting Provider: Mindy Hernandez MD Echocardiogram Limited Views 11/14/18 16:15 Impressions: LVEF 55%. Mild LV segmental wall motion abnormalities. When visually compared to Echo 05/23/2018, SWMA are not new. Normal LV chamber size, wall thickness and function. Normal right ventricular structure and function. Left Ventricular Wall Motion: Rest Echo Findings The basal inferior and basal inferior septal [place] were hypokinetic. All other wall segments showed normal motion. Findings: Study Quality * Technically adequate exam. ECG Findings * Normal sinus rhythm. Left Ventricle * LVEF 55%. * Normal LV chamber size, wall thickness and function. Right Ventricle * Normal right ventricular structure and function. Aorta * Normally sized aortic root. Pericardium * There is no pericardial effusion present. Consult Discharge Plan - Plan Referrals: Patricia Topete, TRANSMISSION MECHANIC [Primary Care Provider] - (2) CAD (coronary artery disease) Qualifiers: Coronary Disease-Associated Artery/Lesion type: [place] artery [place] vs. transplanted heart: [place] heart Associated angina: without angina Qualified Code(s): I25.10 - Atherosclerotic heart disease of [place] coronary artery without angina pectoris (3) COPD (chronic obstructive pulmonary disease) Qualifiers: COPD type: unspecified COPD Qualified Code(s): J44.9 - Chronic obstructive pulmonary disease, unspecified (4) HTN (hypertension) Qualifiers: Hypertension type: essential hypertension Qualified Code(s): I10 - Essential (primary) hypertension (5) Hypothyroidism Qualifiers: Hypothyroidism type: unspecified Qualified Code(s): E03.9 - Hypothyroidism, unspecified
[2018-11-15] MEDS: Ipratropium/Albuterol Neb 3 ML IH PRN ×3 (14:35→23:30)
[2018-11-15] MEDS ORDERED: Ipratropium/Albuterol Neb 3 ML IH ONE (23:03)
[2018-11-15] MEDS ORDERED: *HR* LORazepam 0.5 MG TABLET PO ONE (23:42)
[2018-11-15] MEDS: Budesonide/Formoterol 80/4.5 MDI IH SCH (23:50)
--- NOTE | 2018-11-15 23:54 | Event Note ---
Date of Encounter: 11/15/18 Time of Encounter: 22:56 Notified by nurse of patient becoming hypoxic in 80's and short of breath. Nurse increased oxygen to high flow nasal canula. Ordered chest xray. Assessed patient at bedside, wheezing noted on exam, breathing treatment ordered. Now feeling improved and saturations improved. Will restart home advair and titrate oxygen down as tolerated, nurse to notify of any changes.
[2018-11-16] MEDS: *HR* Promethazine 25 MG/ML VIAL IVP PRN ×2 (00:16→19:56)
[2018-11-16] MEDS: *HR* Heparin 5,000 UNIT/ML VIAL SQ SCH ×2 (05:09→17:19)
[2018-11-16] MEDS: Ringers Solution, Lactated 1,000 ML IVC SCH ×2 (07:27→13:23)
[2018-11-16 08:17] LABS: Basophils # 0.1 K/mcL (0.0-0.2); Basophils % 0.5 %; Eosinophils # 0.5 K/mcL (0.0-0.6); Eosinophils % 4.5 %; Hematocrit 29.1 % (35.3-44.9); Immature Granulocytes % 0.3 % (0-4); Lymphocytes # 1.6 K/mcL (0.6-4.6); Lymphocytes % 15.4 %; Mean Corpuscular Hemoglobin 26.9 pg (28.0-33.3); Mean Corpuscular Volume 81.5 fL (83.0-100.0); Mean Platelet Volume 9.8 fL (9.4-12.4); Monocytes # 0.7 K/mcL (0.0-1.3); Monocytes % 7.3 %; Neutrophils # 7.3 K/mcL (1.6-8.9); Platelet Count 236 K/mcL (140-400); Red Blood Count 3.57 M/mcL (3.82-4.97); Red Cell Distribution Width 14.3 % (11.5-14.5)
[2018-11-16 08:36] LABS: Potassium 4.5 mEq/L (3.5-5.1)
[2018-11-16] MEDS ORDERED: *HR* LORazepam 1 MG TABLET PO PRN (09:06)
[2018-11-16] MEDS: amLODIPine 5 MG TABLET PO SCH (09:30)
[2018-11-16] MEDS: Aspirin Enteric Coated 81 MG Tablet PO SCH (09:31)
[2018-11-16] MEDS: Budesonide/Formoterol 80/4.5 MDI IH SCH ×2 (10:26→19:36)
[2018-11-16] MEDS: Ipratropium/Albuterol Neb 3 ML IH PRN ×2 (10:27→19:36)
[2018-11-16 10:39] LABS: Hemoglobin 9.6 g/dL (11.5-15.4)
--- NOTE | 2018-11-16 11:28 | Electrocardiograph Report ---
[place] [id number] Test Date: 2018-11-14 Pat Name: Clemencia Weeks Department: [id number] Room: 2A33 Gender: F Cruise Counselor: : [id number] Requested By: Debbie Notron Order Number: [id number] Reading MD: Musa Nunez Measurements Intervals [place] Rate: 70 P: 60 [place]: 154 QRS: 66 QRSD: 89 T: 35 QT: 417 QTc: 450 Interpretive Statements Sinus rhythm Electronically Signed On 11-16-2018 11:27:25 EDT by Musa Nunez
--- NOTE | 2018-11-16 11:45 | Nephrology Progress Note ---
Date of Encounter: 11/16/18 Time of Encounter: 11:45 - Assessment and Plan (1) Acute kidney injury superimposed on chronic kidney disease Current Visit: Yes Status: Acute The patient has acute kidney injury superimposed on chronic kidney disease that appears to be secondary to dehydration. She does not acutely need dialysis. I recommend avoiding unnecessary nephrotoxic agents. Adjust medications for renal function. Renal ultrasound is unremarkable. Patient renal function is starting to improve. I anticipate it will continue to improve with hydration. (2) COPD exacerbation Current Visit: No Status: Acute (3) CAD (coronary artery disease) Current Visit: Yes Status: Chronic Qualifiers: Coronary Disease-Associated Artery/Lesion type: [place] artery [place] vs. transplanted heart: [place] heart Associated angina: without angina Qualified Code(s): I25.10 - Atherosclerotic heart disease of [place] coronary artery without angina pectoris (4) HTN (hypertension) Current Visit: Yes Status: Chronic Qualifiers: Hypertension type: essential hypertension Qualified Code(s): I10 - Essential (primary) hypertension (5) Hypothyroidism Current Visit: Yes Status: Chronic Qualifiers: Hypothyroidism type: unspecified Qualified Code(s): E03.9 - Hypothyroidism, unspecified (6) Nausea Current Visit: Yes Status: Acute patient complaining of nausea. Will defer to the primary team regarding the need for GI consult. Subjective Principal diagnosis: BJ on CKD, mild trop Interval history: Patient seen. No new complaint other than decreased appetite and occasional nausea. Her family member is at her bedside. Objective - Vital Signs Vital signs: Vital Signs Temp Pulse Resp BP Pulse Ox 11/16/18 10:43 98.4 F 82 18 159/81 96 11/16/18 10:35 18 94 11/16/18 06:39 98.6 F 85 18 166/92 94 11/16/18 03:15 98.4 F 85 18 165/85 96 11/15/18 23:45 98.3 F 83 16 177/95 98 11/15/18 23:41 16 96 11/15/18 23:03 185/99 95 11/15/18 20:35 16 91 11/15/18 19:47 98.3 F 64 17 173/84 93 11/15/18 16:06 98.4 F 78 18 173/90 95 11/15/18 14:35 16 93 Intake and Output 11/15/18 11/16/18 11/16/18 23:59 07:59 15:59 Intake Total 1291 / 1291 120 / 120 Output Total 100 / 100 300 / 300 200 / 200 Balance 1191 / 1191 -300 / -300 -80 / -80 Intake: IV Fluids 1291 / 1291 0 / 0 Lactated Ringers 1,000 ML @ 100 1291 / 1291 0 / 0 mls/hr IVC .Q10H [facility] Rx#: [id number] Oral 120 / 120 Output: Urine 100 / 100 300 / 300 200 / 200 Other: Meal pudding Breakfast Percent of Meal Consumed 100% 80% Stool Size Small Stool Consistency formed Stool Color Brown # Voids 0 1 Weight 65.3 kg - General Appearance General appearance: Present: well-developed, well-nourished EENT: Present: ATNC Neck: Present: supple Respiratory: Present: course breath sounds Cardiology: Present: no edema, regular rate Gastrointestinal: Present: no tenderness Integumentary: Present: warm and dry Musculoskeletal: Present: no cyanosis Psychiatric: Present: mood/affect appropriate - Lab 11/16/18 07:56 11/16/18 07:56 Most recent lab results Calcium 9.0 mg/dL (8.6-10.3) 11/16/18 07:56 Phosphorus 4.3 mg/dL (2.7-4.5) 11/15/18 03:22 Magnesium 1.5 mg/dL (1.6-2.6) L 11/15/18 03:22 Consult Discharge Plan - Plan Referrals: Patricia Topete ENVIRONMENTAL MARKETING REPRESENTATIVE [Primary Care Provider] -
--- NOTE | 2018-11-16 12:20 | Internal Med Progress Note ---
Hospitalist Progress Note - Encounter Date of Encounter: 11/16/18 Time of Encounter: 09:05 - Subjective Interval History: Patient lying down in bed. Comfortable. She had developed some shortness of breath last night and received bronchodilators with improvement in her symptoms. She feels much better now. 500 mL of urine output documented since this morning. Denies any nausea or vomiting. Tolerating oral diet well. Continues to have tremors. Feels anxious. She takes Ativan at home. - Exam Vitals: Temp Pulse Resp BP Pulse Ox 98.4 F 82 18 159/81 96 11/16/18 10:43 11/16/18 10:43 11/16/18 10:43 11/16/18 10:43 11/16/18 10:43 Exam: General: Patient is alert, mild distress, oriented x 3 ENT: Mucous membranes moist Respiratory: Decreased breath sounds at both bases with mild crackles. Cardiovascular: Regular rate and rhythm. s1 and s2 normal No clicks, rubs, gallops, or murmurs. No pedal edema Abdomen: Abdomen is soft, nontender. Bowel sounds are present Musculoskeletal: Spontaneously moving all extremities Skin: warm, dry, intact. Neuro: Alert oriented x 3 normal cranial nerves, no focal deficits - Assessment and Plan (1) BJ (acute kidney injury) Current Visit: Yes Status: Acute Assessment and Plan: Suspected ATN. Creatinine 4.24 today. Slightly improved compared to yesterday. Decent urine output. Nephrology following. Will decrease rate of IV fluids and chest x-ray shows mild interstitial edema developing. Continue to monitor input and output. Avoid nephrotoxic agents. Renal ultrasound reviewed. No acute findings. High-risk for complications (2) CAD (coronary artery disease) Current Visit: Yes Status: Chronic Assessment and Plan: Continue aspirin, atenolol. Patient is listed as being allergic to statins. (3) COPD (chronic obstructive pulmonary disease) Current Visit: Yes Status: Chronic Assessment and Plan: Continue bronchodilators. Patient has also been placed on Symbicort. We will continue these medications. (4) HTN (hypertension) Current Visit: Yes Status: Chronic Assessment and Plan: Blood pressure remains elevated. Amlodipine has been added to her antihypertensive regimen. Will continue to monitor blood pressure. (5) Hypothyroidism Current Visit: Yes Status: Chronic Assessment and Plan: Continue levothyroxin (6) DVT prophylaxis Current Visit: Yes Status: Chronic Assessment and Plan: Patient is on subcutaneous heparin. - Time Spent with Patient Total time spent is greater than 50% in coordination of care (as documented) at patient's floor/unit and/or counseling patient: Internal Medicine: Result - Labs CBC & Chem 7: 11/16/18 07:56 11/16/18 07:56 Labs: Short CBC 11/16/18 Range/Units 07:56 WBC 10.1 (4.3-11.1) K/mcL Hgb 9.6 L D (11.5-15.4) g/dL Hct 29.1 L (35.3-44.9) % Plt Count 236 (140-400) K/mcL Neutrophils # 7.3 (1.6-8.9) K/mcL BMP 11/16/18 07:56 Sodium 133 L Potassium 4.5 Chloride 104 Carbon Dioxide 21 L BUN 56 H Creatinine 4.24 H Glucose 118 H Calcium 9.0 - Impressions Impressions Chest X-Ray 11/15/18 22:58 IMPRESSION: Interval development mild interstitial prominence may reflect early interstitial edema. Trace bilateral effusions are stable.. D/ / Alok Villarreal MD / Alok Villarreal MD Interpreting Provider: Alok Villarreal MD Consult Discharge Plan - Plan Referrals: Patricia Topete OPTICIANRY TEACHER [Primary Care Provider] - (2) CAD (coronary artery disease) Qualifiers: Coronary Disease-Associated Artery/Lesion type: [place] artery [place] vs. transplanted heart: [place] heart Associated angina: without angina Qualified Code(s): I25.10 - Atherosclerotic heart disease of [place] coronary artery without angina pectoris (3) COPD (chronic obstructive pulmonary disease) Qualifiers: COPD type: unspecified COPD Qualified Code(s): J44.9 - Chronic obstructive pulmonary disease, unspecified (4) HTN (hypertension) Qualifiers: Hypertension type: essential hypertension Qualified Code(s): I10 - Essential (primary) hypertension (5) Hypothyroidism Qualifiers: Hypothyroidism type: unspecified Qualified Code(s): E03.9 - Hypothyroidism, unspecified
[2018-11-16] MEDS: *HR* LORazepam 1 MG TABLET PO SCH ×2 (15:31→20:45)
[2018-11-16] MEDS: Acetaminophen 325 MG TABLET PO PRN (20:45)
[2018-11-17] MEDS: Ipratropium/Albuterol Neb 3 ML IH PRN ×5 (03:18→23:33)
[2018-11-17] MEDS: Ringers Solution, Lactated 1,000 ML IVC SCH (04:36)
[2018-11-17] MEDS: *HR* Heparin 5,000 UNIT/ML VIAL SQ SCH ×2 (06:17→16:43)
[2018-11-17 06:29] LABS: Basophils # 0.1 K/mcL (0.0-0.2); Basophils % 0.5 %; Eosinophils # 0.5 K/mcL (0.0-0.6); Eosinophils % 4.2 %; Hematocrit 30.4 % (35.3-44.9); Hemoglobin 9.9 g/dL (11.5-15.4); Immature Granulocytes % 0.4 % (0-4); Lymphocytes # 1.1 K/mcL (0.6-4.6); Mean Corpuscular HGB Conc 32.6 g/dL (31.6-35.5); Mean Corpuscular Volume 83.1 fL (83.0-100.0); Mean Platelet Volume 9.8 fL (9.4-12.4); Monocytes # 0.9 K/mcL (0.0-1.3); Monocytes % 7.6 %; Neutrophils # 8.8 K/mcL (1.6-8.9); Platelet Count 219 K/mcL (140-400); Red Blood Count 3.66 M/mcL (3.82-4.97); Red Cell Distribution Width 14.5 % (11.5-14.5); Segmented Neutrophils % 77.3 %
[2018-11-17 06:49] LABS: Calcium 9.1 mg/dL (8.6-10.3); Potassium 4.7 mEq/L (3.5-5.1)
[2018-11-17 06:50] LABS: % Iron Saturation 5 % (15-50); Iron 14 mcg/dL (50-170); Transferrin 207 mg/dL (203-362)
[2018-11-17 07:08] LABS: Ferritin 202 ng/mL (10-120)
[2018-11-17 07:18] LABS: Folate > 22.3 ng/mL (3.0-16.0); Vitamin B12 > 1500 pg/mL (250-1100)
[2018-11-17] MEDS: Budesonide/Formoterol 80/4.5 MDI IH SCH ×2 (07:43→19:45)
[2018-11-17] MEDS: *HR* LORazepam 1 MG TABLET PO SCH ×3 (08:09→20:12)
[2018-11-17] MEDS: amLODIPine 5 MG TABLET PO SCH (08:09)
[2018-11-17] MEDS: Aspirin Enteric Coated 81 MG Tablet PO SCH (08:09)
--- NOTE | 2018-11-17 09:49 | Nephrology Progress Note ---
Date of Encounter: 11/17/18 Time of Encounter: 09:49 - Assessment and Plan (1) Acute kidney injury superimposed on chronic kidney disease Current Visit: Yes Status: Acute The patient has acute kidney injury superimposed on chronic kidney disease that appears to be secondary to dehydration. She does not acutely need dialysis. I recommend avoiding unnecessary nephrotoxic agents. Adjust medications for renal function. Renal ultrasound is unremarkable. Patient renal function is starting to improve. I anticipate it will continue to improve with hydration although I agree with holding as her respiratory status has worsened secondary to pleural effusion. Consider draining her pleural effusion. (2) COPD exacerbation Current Visit: No Status: Acute (3) CAD (coronary artery disease) Current Visit: Yes Status: Chronic Qualifiers: Coronary Disease-Associated Artery/Lesion type: [place] artery [place] vs. transplanted heart: [place] heart Associated angina: without angina Qualified Code(s): I25.10 - Atherosclerotic heart disease of [place] coronary artery without angina pectoris (4) HTN (hypertension) Current Visit: Yes Status: Chronic Qualifiers: Hypertension type: essential hypertension Qualified Code(s): I10 - Essential (primary) hypertension (5) Hypothyroidism Current Visit: Yes Status: Chronic Qualifiers: Hypothyroidism type: unspecified Qualified Code(s): E03.9 - Hypothyroidism, unspecified (6) Nausea Current Visit: Yes Status: Acute (7) Pleural effusion Current Visit: Yes Status: Acute Subjective Principal diagnosis: BJ on CKD, mild trop Interval history: Patient seen. She is on the phone. Objective - Vital Signs Vital signs: Vital Signs Temp Pulse Resp BP Pulse Ox 11/17/18 06:38 98.9 F 82 20 165/83 96 11/17/18 03:50 98.6 F 90 17 159/82 90 11/17/18 03:18 19 78 11/16/18 23:49 98.5 F 71 16 136/76 100 11/16/18 20:12 93 11/16/18 19:37 20 90 11/16/18 19:01 100.6 F H 89 16 173/92 90 11/16/18 15:37 98.7 F 79 18 154/77 90 11/16/18 10:43 98.4 F 82 18 159/81 96 11/16/18 10:35 18 94 Intake and Output 11/16/18 11/17/18 11/17/18 23:59 07:59 15:59 Intake Total 686 / 686 0 / 0 Output Total 200 / 200 Balance 486 / 486 0 / 0 Intake: IV Fluids 446 / 446 Lactated Ringers 1,000 ML @ 75 446 / 446 mls/hr IVC .[id number] [facility] Rx#: [id number] Oral 240 / 240 0 / 0 Output: Urine 200 / 200 Other: Meal Dinner Percent of Meal Consumed 80% Weight 66.2 kg - General Appearance General appearance: Present: well-developed, well-nourished EENT: Present: ATNC Cardiology: Present: regular rate - Lab 11/17/18 06:17 11/17/18 06:17 Most recent lab results Calcium 9.1 mg/dL (8.6-10.3) 11/17/18 06:17 Phosphorus 4.3 mg/dL (2.7-4.5) 11/15/18 03:22 Magnesium 1.5 mg/dL (1.6-2.6) L 11/15/18 03:22 Consult Discharge Plan - Plan Referrals: Patricia Topete COLD STORAGE WORKER [Primary Care Provider] -
--- NOTE | 2018-11-17 11:50 | Internal Med Progress Note ---
Hospitalist Progress Note - Encounter Date of Encounter: 11/17/18 Time of Encounter: 10:40 - Subjective Interval History: Patient lying down in bed. Complains of nausea. Has not had any decline in urine output. Continued shortness of breath since yesterday evening after fluids were restarted. No chest pain or palpitations. - Exam Vitals: Temp Pulse Resp BP Pulse Ox 99.6 F 82 20 147/76 94 11/17/18 10:50 11/17/18 10:50 11/17/18 10:50 11/17/18 10:50 11/17/18 10:50 Exam: General: Patient is alert, mild distress, oriented x 3 ENT: Mucous membranes moist Respiratory: Decreased breath sounds at both bases. Basal crackles. Cardiovascular: Regular rate and rhythm. s1 and s2 normal No clicks, rubs, gallops, or murmurs. No pedal edema Abdomen: Abdomen is soft, nontender. Bowel sounds are present Musculoskeletal: Spontaneously moving all extremities Skin: warm, dry, intact. Neuro: Alert oriented x 3 normal cranial nerves, no focal deficits, tremors p resent in both upper extremities - Assessment and Plan (1) BJ (acute kidney injury) Current Visit: Yes Status: Acute Assessment and Plan: On chronic kidney disease stage III. Creatinine 4.52 today. BUN 56. No significant improvement in renal function despite IV fluids. We will stop IV f luids at this time. Will discuss with nephrology about further plan of care. If renal function does not improve, patient may need to be started on dialysis especially as she is developing symptoms of heart failure. (2) CAD (coronary artery disease) Current Visit: Yes Status: Chronic Assessment and Plan: Continue aspirin, atenolol, Plavix. Patient is allergic to statins. (3) COPD (chronic obstructive pulmonary disease) Current Visit: Yes Status: Chronic Assessment and Plan: Continue bronchodilators. (4) HTN (hypertension) Current Visit: Yes Status: Chronic Assessment and Plan: Blood pressure was elevated this morning. Patient was started on amlodipine yesterday. We will continue to monitor blood pressure. (5) Hypothyroidism Current Visit: Yes Status: Chronic Assessment and Plan: Continue levothyroxin (6) DVT prophylaxis Current Visit: Yes Status: Chronic Assessment and Plan: Continue subcutaneous heparin (7) Congestive heart failure (CHF) Current Visit: Yes Status: Acute Assessment and Plan: Patient having symptoms of heart failure mainly due to fluid overload with underlying acute kidney injury and chronic kidney disease stage III. Requiring high flow nasal cannula. Will discuss with nephrology about possible options including trial dose of Lasix versus initiating dialysis. Continue supportive c are. Continue to monitor input and output. (8) Acute kidney injury superimposed on chronic kidney disease Current Visit: Yes Status: Acute Assessment and Plan: Acute kidney injury most likely due to ATN on chronic kidney disease stage III DVT Prophylaxis: On subcutaneous heparin - Time Spent with Patient Total time spent is greater than 50% in coordination of care (as documented) at patient's floor/unit and/or counseling patient: Internal Medicine: Result - Labs CBC & Chem 7: 11/17/18 06:17 11/17/18 06:17 Labs: Short CBC 11/17/18 Range/Units 06:17 WBC 11.4 H (4.3-11.1) K/mcL Hgb 9.9 L (11.5-15.4) g/dL Hct 30.4 L (35.3-44.9) % Plt Count 219 (140-400) K/mcL Neutrophils # 8.8 (1.6-8.9) K/mcL BMP 11/17/18 06:17 Sodium 135 L Potassium 4.7 Chloride 102 Carbon Dioxide 20 L BUN 56 H Creatinine 4.52 H Glucose 109 H Calcium 9.1 - Impressions Impressions Chest X-Ray 11/17/18 08:01 IMPRESSION: 1. Stable appearance of vascular congestion with mild interstitial edema 2. Interval enlargement of bilateral pleural effusions, with bibasilar atelectasis D/ / Mg Munguia MD / Mg Munguia MD Interpreting Provider: Mg Munguia MD Consult Discharge Plan - Plan Referrals: Patricia Topete [employer] [Primary Care Provider] - (2) CAD (coronary artery disease) Qualifiers: Coronary Disease-Associated Artery/Lesion type: [place] artery [place] vs. transplanted heart: [place] heart Associated angina: without angina Qualified Code(s): I25.10 - Atherosclerotic heart disease of [place] coronary artery without angina pectoris (3) COPD (chronic obstructive pulmonary disease) Qualifiers: COPD type: unspecified COPD Qualified Code(s): J44.9 - Chronic obstructive pulmonary disease, unspecified (4) HTN (hypertension) Qualifiers: Hypertension type: essential hypertension Qualified Code(s): I10 - Essential (primary) hypertension (5) Hypothyroidism Qualifiers: Hypothyroidism type: unspecified Qualified Code(s): E03.9 - Hypothyroidism, unspecified (7) Congestive heart failure (CHF) Qualifiers: Heart failure type: diastolic Heart failure chronicity: acute on chronic Qualified Code(s): I50.33 - Acute on chronic diastolic (congestive) heart failure
[2018-11-17] MEDS ORDERED: Sodium Ferric Gluconat/Sucrose 250 MG in 0.9 % Sodium Chloride 100 ML IVPB ONE (11:58)
[2018-11-17] MEDS: *HR* Promethazine 25 MG/ML VIAL IVP PRN (20:18)
[2018-11-18 02:18] LABS: Basophils # 0.1 K/mcL (0.0-0.2); Basophils % 0.5 %; Eosinophils # 0.6 K/mcL (0.0-0.6); Eosinophils % 4.9 %; Hematocrit 30.5 % (35.3-44.9); Immature Granulocytes % 0.8 % (0-4); Lymphocytes # 1.4 K/mcL (0.6-4.6); Lymphocytes % 11.1 %; Mean Corpuscular HGB Conc 32.8 g/dL (31.6-35.5); Mean Corpuscular Hemoglobin 27.1 pg (28.0-33.3); Mean Corpuscular Volume 82.7 fL (83.0-100.0); Mean Platelet Volume 9.7 fL (9.4-12.4); Monocytes # 1.1 K/mcL (0.0-1.3); Monocytes % 8.5 %; Neutrophils # 9.5 K/mcL (1.6-8.9); Platelet Count 253 K/mcL (140-400); Red Blood Count 3.69 M/mcL (3.82-4.97); Red Cell Distribution Width 14.4 % (11.5-14.5); Segmented Neutrophils % 74.2 %
[2018-11-18 02:35] LABS: Calcium 9.6 mg/dL (8.6-10.3); Potassium 4.6 mEq/L (3.5-5.1)
[2018-11-18] MEDS: Ipratropium/Albuterol Neb 3 ML IH PRN ×3 (03:46→19:49)
[2018-11-18] MEDS: *HR* Heparin 5,000 UNIT/ML VIAL SQ SCH ×2 (06:07→16:59)
[2018-11-18] MEDS: Budesonide/Formoterol 80/4.5 MDI IH SCH ×2 (07:28→19:47)
[2018-11-18] MEDS: *HR* LORazepam 1 MG TABLET PO SCH ×3 (09:50→21:12)
[2018-11-18] MEDS: amLODIPine 5 MG TABLET PO SCH (09:50)
[2018-11-18] MEDS: Aspirin Enteric Coated 81 MG Tablet PO SCH (09:50)
--- NOTE | 2018-11-18 10:49 | Internal Med Progress Note ---
Hospitalist Progress Note - Encounter Date of Encounter: 11/18/18 Time of Encounter: 10:46 - Subjective Interval History: Patient lying down in bed. Continues to have poor appetite and nausea but denies any abdominal pain. No chest pain. Continues to require high levels of O2 supplementation. No dizziness or lightheadedness. No fevers or chills rep orted overnight. - Exam Vitals: Temp Pulse Resp BP Pulse Ox 98.7 F 86 18 151/73 93 11/18/18 07:25 11/18/18 07:25 11/18/18 07:28 11/18/18 07:25 11/18/18 07:28 Exam: General: Patient is alert, mild distress, oriented x 3 ENT: Mucous membranes moist Respiratory: Basal crackles, decreased breath sounds at both bases Cardiovascular: Regular rate and rhythm. s1 and s2 normal No clicks, rubs, gallops, or murmurs. Trace pedal edema Abdomen: Abdomen is soft, nontender. Bowel sounds are present Musculoskeletal: Spontaneously moving all extremities Skin: warm, dry, intact. Neuro: Alert oriented x 3 normal cranial nerves, no focal deficits, tremors present bilaterally at rest - Assessment and Plan (1) BJ (acute kidney injury) Current Visit: Yes Status: Acute Assessment and Plan: On chronic kidney disease stage III. Creatinine continues to worsen. Nephrology following. Patient continues to make urine. Unable to give IV fluids as patient third spacing. Follow nephrology recommendations. Patient at high risk for complications may require hemodialysis. (2) Congestive heart failure (CHF) Current Visit: Yes Status: Acute Assessment and Plan: Patient with fluid overload and underlying [place] I on chronic kidney disease. Chest x-ray shows bilateral pleural effusions. Discussed with nephrology. Recommend to hold off on Lasix due to acute kidney injury for now. We will consult interventional radiology to do thoracentesis. (3) CAD (coronary artery disease) Current Visit: Yes Status: Chronic Assessment and Plan: Patient on aspirin, Plavix. No chest pain reported. (4) COPD (chronic obstructive pulmonary disease) Current Visit: Yes Status: Chronic Assessment and Plan: Continue bronchodilators as needed. (5) HTN (hypertension) Current Visit: Yes Status: Chronic Assessment and Plan: Continue amlodipine, atenolol (6) Hypothyroidism Current Visit: Yes Status: Chronic Assessment and Plan: Continue levothyroxin (7) DVT prophylaxis Current Visit: Yes Status: Chronic Assessment and Plan: On subcutaneous heparin (8) Acute kidney injury superimposed on chronic kidney disease Current Visit: Yes Status: Acute - Time Spent with Patient Total time spent is greater than 50% in coordination of care (as documented) at patient's floor/unit and/or counseling patient: Internal Medicine: Result - Labs CBC & Chem 7: 11/18/18 01:59 11/18/18 01:59 Labs: Short CBC 11/18/18 Range/Units 01:59 WBC 12.8 H (4.3-11.1) K/mcL Hgb 10.0 L (11.5-15.4) g/dL Hct 30.5 L (35.3-44.9) % Plt Count 253 (140-400) K/mcL Neutrophils # 9.5 H (1.6-8.9) K/mcL BMP 11/18/18 01:59 Sodium 134 L Potassium 4.6 Chloride 100 Carbon Dioxide 21 L BUN 63 H Creatinine 4.86 H Glucose 124 H Calcium 9.6 Consult Discharge Plan - Plan Referrals: Patricia Topete, [employer] [Primary Care Provider] - (2) Congestive heart failure (CHF) Qualifiers: Heart failure type: diastolic Heart failure chronicity: acute on chronic Qualified Code(s): I50.33 - Acute on chronic diastolic (congestive) heart failure (3) CAD (coronary artery disease) Qualifiers: Coronary Disease-Associated Artery/Lesion type: [place] artery [place] vs. transplanted heart: [place] heart Associated angina: without angina Qualified Code(s): I25.10 - Atherosclerotic heart disease of [place] coronary artery without angina pectoris (4) COPD (chronic obstructive pulmonary disease) Qualifiers: COPD type: unspecified COPD Qualified Code(s): J44.9 - Chronic obstructive pulmonary disease, unspecified (5) HTN (hypertension) Qualifiers: Hypertension type: essential hypertension Qualified Code(s): I10 - Essential (primary) hypertension (6) Hypothyroidism Qualifiers: Hypothyroidism type: unspecified Qualified Code(s): E03.9 - Hypothyroidism, unspecified
[2018-11-18 11:25] LABS: INR 1.1; Prothrombin Time 12.6 Seconds (9.4-12.1)
--- NOTE | 2018-11-18 12:27 | Nephrology Progress Note ---
Date of Encounter: 11/18/18 Time of Encounter: 12:27 - Assessment and Plan (1) Acute kidney injury superimposed on chronic kidney disease Current Visit: Yes Status: Acute The patient has acute kidney injury superimposed on chronic kidney disease that appears to be secondary to dehydration. She does not acutely need dialysis, but may need it over the next few days if her renal function continues to worsen. I recommend avoiding unnecessary nephrotoxic agents. Adjust medications for renal function. Renal ultrasound is unremarkable. Patient unable to tolerate MIV secondary to worsening renal status. (2) COPD exacerbation Current Visit: No Status: Acute (3) CAD (coronary artery disease) Current Visit: Yes Status: Chronic Qualifiers: Coronary Disease-Associated Artery/Lesion type: [place] artery [place] vs. transplanted heart: [place] heart Associated angina: without angina Qualified Code(s): I25.10 - Atherosclerotic heart disease of [place] coronary artery without angina pectoris (4) HTN (hypertension) Current Visit: Yes Status: Chronic Titrate blood pressure medication as needed. If her renal function improves tomorrow day for adding back losartan. Qualifiers: Hypertension type: essential hypertension Qualified Code(s): I10 - Essential (primary) hypertension (5) Hypothyroidism Current Visit: Yes Status: Chronic Qualifiers: Hypothyroidism type: unspecified Qualified Code(s): E03.9 - Hypothyroidism, unspecified (6) Nausea Current Visit: Yes Status: Acute (7) Pleural effusion Current Visit: Yes Status: Acute Subjective Principal diagnosis: BJ on CKD, mild trop Interval history: Patient seen and evaluated. Her respiratory status seems to be worsening for unclear reasons. She denies chest pain. He claims to have some dyspnea. Objective - Vital Signs Vital signs: Vital Signs Temp Pulse Resp BP Pulse Ox 11/18/18 11:51 98.9 F 77 16 153/81 92 11/18/18 07:28 18 93 11/18/18 07:25 98.7 F 86 18 151/73 90 11/18/18 04:05 98.6 F 79 18 155/74 95 11/18/18 03:46 16 96 11/17/18 23:33 18 97 11/17/18 23:27 98.3 F 85 19 161/79 93 11/17/18 19:47 18 91 11/17/18 19:11 99 F 86 18 162/89 94 11/17/18 15:17 99.4 F 82 20 154/87 91 11/17/18 15:03 16 91 Intake and Output 11/17/18 11/18/18 11/18/18 23:59 07:59 15:59 Output Total 250 / 250 Balance -250 / -250 Output: Urine 250 / 250 - General Appearance General appearance: Present: well-developed, well-nourished EENT: Present: ATNC Neck: Present: supple Respiratory: Present: course breath sounds Cardiology: Present: no edema, regular rate Gastrointestinal: Present: no tenderness Integumentary: Present: warm and dry Neurologic: Present: alert and oriented x3 Musculoskeletal: Present: no cyanosis Psychiatric: Present: mood/affect appropriate - Lab 11/19/18 06:40 11/19/18 06:40 Most recent lab results Calcium 9.6 mg/dL (8.6-10.3) 11/18/18 01:59 Phosphorus 4.3 mg/dL (2.7-4.5) 11/15/18 03:22 Magnesium 1.5 mg/dL (1.6-2.6) L 11/15/18 03:22 Consult Discharge Plan - Plan Referrals: Patricia Topete, [employer]PECTOR [Primary Care Provider] -
[2018-11-18] MEDS: *HR* Promethazine 25 MG/ML VIAL IVP PRN (17:43)
[2018-11-19] MEDS: Ipratropium/Albuterol Neb 3 ML IH PRN ×2 (04:42→07:22)
[2018-11-19] MEDS: *HR* Heparin 5,000 UNIT/ML VIAL SQ SCH ×2 (05:38→18:04)
[2018-11-19 07:19] LABS: Basophils # 0.1 K/mcL (0.0-0.2); Basophils % 0.5 %; Eosinophils # 1.4 K/mcL (0.0-0.6); Eosinophils % 12.4 %; Hematocrit 29.9 % (35.3-44.9); Hemoglobin 9.9 g/dL (11.5-15.4); Immature Granulocytes % 0.5 % (0-4); Lymphocytes # 1.1 K/mcL (0.6-4.6); Lymphocytes % 10.2 %; Mean Corpuscular HGB Conc 33.1 g/dL (31.6-35.5); Mean Corpuscular Hemoglobin 27.3 pg (28.0-33.3); Mean Corpuscular Volume 82.6 fL (83.0-100.0); Monocytes # 0.9 K/mcL (0.0-1.3); Monocytes % 8.2 %; Neutrophils # 7.6 K/mcL (1.6-8.9); Platelet Count 280 K/mcL (140-400); Red Blood Count 3.62 M/mcL (3.82-4.97); Red Cell Distribution Width 14.2 % (11.5-14.5); Segmented Neutrophils % 68.2 %
[2018-11-19 07:22] LABS: Calcium 9.2 mg/dL (8.6-10.3); Potassium 4.4 mEq/L (3.5-5.1)
[2018-11-19] MEDS: Budesonide/Formoterol 80/4.5 MDI IH SCH ×2 (07:22→19:31)
[2018-11-19] MEDS: amLODIPine 5 MG TABLET PO SCH (08:05)
[2018-11-19] MEDS: Aspirin Enteric Coated 81 MG Tablet PO SCH (08:05)
[2018-11-19] MEDS: *HR* LORazepam 1 MG TABLET PO SCH ×3 (08:05→20:07)
[2018-11-19 08:16] LABS: Hepatitis B Surface Antibody 3.49 mIU/mL
[2018-11-19 08:26] LABS: Hepatitis B Surface Antigen Nonreactive (Nonreactive)
[2018-11-19] MEDS: *HR* Promethazine 25 MG/ML VIAL IVP PRN (10:27)
[2018-11-19 11:03] LABS: Troponin I 0.08 ng/mL (< 0.04)
[2018-11-19] MEDS ORDERED: *HR* Heparin 5,000 UNIT/ML VIAL ONE (12:33)
[2018-11-19] MEDS: Metoclopramide 10 MG/2 ML VIAL IVP PRN ×2 (13:25→18:05)
[2018-11-19] MEDS ORDERED: *HR* Heparin 10,000 UNIT/10 ML VIAL IV PRN (13:39)
[2018-11-19] MEDS ORDERED: 0.9 % Sodium Chloride 250 ML IVC PRN (13:39)
[2018-11-19] MEDS ORDERED: 0.9 % Sodium Chloride 1,000 ML PRIME SCH (13:45)
--- NOTE | 2018-11-19 15:36 | Nephrology Progress Note ---
Date of Encounter: 11/19/18 Time of Encounter: 15:36 - Assessment and Plan (1) Acute kidney injury superimposed on chronic kidney disease Current Visit: Yes Status: Acute The patient has acute kidney injury superimposed on chronic kidney disease that appears to be secondary to dehydration and possibly INNA from contrast exposure. She initially responded to MIV, but this had to be held secondary to worsening respiratory failure. Her renal function started to worsen. Today both her respiratory status and renal function have worsened significantly. Attempt at thoracentesis was negative for a fluid pocket that could be drained. The patient and are agreeable to hemodialysis for volume control. Hemodialysis orders were placed and a consult was placed in IR for a temporary dialysis catheter. The patient went to hemodialysis and I was called urgently secondary to acute hypoxia when the patient started dialysis. When I was in the room the primary hospitalist was also there. The patient was placed on a nonrebreather mask with improvement in her oxygenation. Her blood pressure was stable. I decided to terminate hemodialysis as she was not stable from respiratory standpoint. I also recommended that the patient's go to a higher level of care. I also recommended a bone a consult secondary to worsening respiratory status. The etiology of the patient's worsening respiratory status is not completely clear but seems to be associated with pulmonary edema. Secondary to her acute hypoxia she may need a CT pulmonary angiogram. This is less likely to be cardiac in nature secondary to a recent cardiac catheterization however it may be prudent to check cardiac enzymes if no other etiology is found. We will reevaluate tomorrow for the need for dialysis. Avoid nephrotoxic agents and adjust medications for renal function. 34 minutes total time was spent in the care of this critically ill patient. (2) COPD exacerbation Current Visit: No Status: Acute (3) CAD (coronary artery disease) Current Visit: Yes Status: Chronic Qualifiers: Coronary Disease-Associated Artery/Lesion type: [place] artery [place] vs. transplanted heart: [place] heart Associated angina: without angina Qualified Code(s): I25.10 - Atherosclerotic heart disease of [place] coronary artery withou t angina pectoris (4) HTN (hypertension) Current Visit: Yes Status: Chronic Titrate blood pressure medication as needed. . Qualifiers: Hypertension type: essential hypertension Qualified Code(s): I10 - Essential (primary) hypertension (5) Hypothyroidism Current Visit: Yes Status: Chronic Qualifiers: Hypothyroidism type: unspecified Qualified Code(s): E03.9 - Hypothyroidism, unspecified (6) Nausea Current Visit: Yes Status: Acute (7) Pleural effusion Current Visit: Yes Status: Acute Subjective Principal diagnosis: BJ on CKD, mild trop Interval history: Patient seen and evaluated. She is less responsive, but has no complaint of pain. Her is at her bedside. They are agreeable to dialysis. She complains of nausea. Objective - Vital Signs Vital signs: Vital Signs Temp Pulse Resp BP Pulse Ox 11/19/18 15:03 99.0 F 76 22 150/74 94 11/19/18 10:37 99.9 F H 73 18 162/81 96 11/19/18 08:14 18 92 11/19/18 06:52 99.2 F 77 18 157/79 90 11/19/18 04:43 14 94 11/19/18 04:00 98.6 F 79 16 160/82 93 11/18/18 23:45 99.4 F 73 16 166/83 95 11/18/18 19:54 94 11/18/18 19:50 15 91 11/18/18 19:06 98.9 F 76 16 146/77 94 11/18/18 15:51 98.8 F 72 16 111/74 94 Intake and Output 11/18/18 11/19/18 11/19/18 23:59 07:59 15:59 Intake Total 280 / 280 Output Total 500 / 500 250 / 250 200 / 200 Balance -500 / -500 -250 / -250 80 / 80 Intake: Oral 280 / 280 Output: Urine 500 / 500 250 / 250 200 / 200 Other: Meal Breakfast Percent of Meal Consumed 50% Stool Size Moderate Stool Consistency formed Stool Characteristics Normal for Patient Weight 67.4 kg - General Appearance General appearance: Present: well-developed, well-nourished EENT: Present: ATNC Neck: Present: supple Respiratory: Present: rales, course breath sounds, rhonchi Cardiology: Present: no edema, regular rate Dialysis Vascular Access: Venous Catheter Gastrointestinal: Present: no tenderness Integumentary: Present: warm and dry Additional Comments: alert Musculoskeletal: Present: no cyanosis Psychiatric: Present: mood/affect appropriate - Lab 11/19/18 06:40 11/19/18 06:40 Most recent lab results Calcium 9.2 mg/dL (8.6-10.3) 11/19/18 06:40 Phosphorus 4.3 mg/dL (2.7-4.5) 11/15/18 03:22 Magnesium 1.5 mg/dL (1.6-2.6) L 11/15/18 03:22 Consult Discharge Plan - Plan Referrals: Patricia Topete CNP [Primary Care Provider] -
[2018-11-19] MEDS ORDERED: Isovue-370 500 ML BOTTLE IVP ONE (16:13)
--- NOTE | 2018-11-19 16:17 | Internal Med Progress Note ---
Hospitalist Progress Note - Encounter Date of Encounter: 11/19/18 Time of Encounter: 16:15 - Subjective Interval History: Patient seen in dialysis today. She had undergone temporary dialysis catheter placement and was taken to dialysis. Immediately after initiation of dialysis, patient became hypoxic. She was placed on nonrebreather with improvement in her saturation. However dialysis was stopped. Patient denies any chest pain. Complains mainly of significant shortness of breath. - Exam Vitals: Temp Pulse Resp BP Pulse Ox 99.0 F 76 22 150/74 94 11/19/18 15:03 11/19/18 15:03 11/19/18 15:03 11/19/18 15:03 11/19/18 15:03 Exam: General: Patient is alert, severe distress, oriented x 3 ENT: Mucous membranes moist Respiratory: Bilateral wheezing and crackles. Cardiovascular: Regular rate and rhythm. s1 and s2 normal No clicks, rubs, gallops, or murmurs. No pedal edema Abdomen: Abdomen is soft, nontender. Bowel sounds are present Musculoskeletal: Spontaneously moving all extremities Skin: warm, dry, intact. Neuro: Alert oriented x 3 normal cranial nerves, no focal deficits - Assessment and Plan (1) Acute on chronic respiratory failure with hypoxia Current Visit: Yes Status: Acute Assessment and Plan: Patient does report worsening respiratory failure today. Concern for pulmonary edema versus PE versus [place]. However troponins have remained adynamic with only mild rise to 0.08 in which in the setting of ESRD does not suggest non-ST elevation [place]. Will obtain CT angiogram per PE protocol. Consult pulmonology. Chest x-ray does show pulmonary edema and bilateral pleural effusions. (2) BJ (acute kidney injury) Current Visit: Yes Status: Acute Assessment and Plan: Renal function continues to worsen. After discussion with nephrology, patient underwent temporary dialysis catheter placement today. Dialysis however not able to be performed due to respiratory decompensation. Will transfer patient to stepdown unit. Monitor closely. (3) Congestive heart failure (CHF) Current Visit: Yes Status: Acute Assessment and Plan: Chest x-ray done and shows worsening pulmonary edema. She also has bilateral effusions. Plan to do dialysis whenever possible. High risk for complications. Will place patient on stepdown unit. (4) CAD (coronary artery disease) Current Visit: Yes Status: Chronic Assessment and Plan: Continue aspirin, Plavix. (5) COPD (chronic obstructive pulmonary disease) Current Visit: Yes Status: Chronic Assessment and Plan: Continue bronchodilators as needed. Continue Symbicort. We will consult pulmonology to evaluate patient. Will also rule out PE (6) HTN (hypertension) Current Visit: Yes Status: Chronic Assessment and Plan: On Amlodipine, atenolol. Blood pressure elevated today. We will continue to monitor and adjust antihypertensive regimen. (7) Hypothyroidism Current Visit: Yes Status: Chronic Assessment and Plan: Continue levothyroxin (8) DVT prophylaxis Current Visit: Yes Status: Chronic Assessment and Plan: On subcutaneous heparin (9) Acute kidney injury superimposed on chronic kidney disease Current Visit: Yes Status: Acute - Time Spent with Patient Total time spent is greater than 50% in coordination of care (as documented) at patient's floor/unit and/or counseling patient: Internal Medicine: Result - Labs CBC & Chem 7: 11/19/18 06:40 11/19/18 06:40 Labs: Short CBC 11/19/18 Range/Units 06:40 WBC 11.2 H (4.3-11.1) K/mcL Hgb 9.9 L (11.5-15.4) g/dL Hct 29.9 L (35.3-44.9) % Plt Count 280 (140-400) K/mcL Neutrophils # 7.6 (1.6-8.9) K/mcL BMP 11/19/18 06:40 Sodium 133 L Potassium 4.4 Chloride 100 Carbon Dioxide 21 L BUN 67 H Creatinine 5.48 H Glucose 107 H Calcium 9.2 Cardiac Enzymes 11/19/18 Range/Units 06:40 Troponin I 0.08 H* (< 0.04) ng/mL - ABG Interpretation ABG results: PT/INR, D-dimer PT 12.6 Seconds (9.4-12.1) H 11/18/18 11:06 - Impressions Impressions Guidance Ultrasound 11/19/18 00:00 IMPRESSION: Successful ultrasound guided non-tunneled catheter placement. D/ / Eleno Benedict MD / Eleno Benedict MD Interpreting Provider: Eleno Benedict MD X-Ray 11/19/18 10:30 IMPRESSION: 1. Nonspecific and nonobstructive bowel gas pattern. D/ / Eduardo Real MD / Eduardo Real MD Interpreting Provider: Eduardo Real MD Insertion Non-Tunneled Catheter 11/19/18 11:27 IMPRESSION: Successful ultrasound guided non-tunneled catheter placement. D/ / Eleno Benedict MD / Eleno Benedict MD Interpreting Provider: Eleno Benedict MD Chest X-Ray 11/19/18 13:47 IMPRESSION: Line placement without pneumothorax. Pulmonary edema with bilateral pleural effusions. D/ / 11/19/2018 14:23:33 Maicol Reyes MD / Raine Velasco Interpreting Provider: Maicol Reyes MD Consult Discharge Plan - Plan Referrals: Patricia Topete CNP [Primary Care Provider] - (3) Congestive heart failure (CHF) Qualifiers: Heart failure type: diastolic Heart failure chronicity: acute on chronic Qualified Code(s): I50.33 - Acute on chronic diastolic (congestive) heart failure (4) CAD (coronary artery disease) Qualifiers: Coronary Disease-Associated Artery/Lesion type: [place] artery [place] vs. tr ansplanted heart: [place] heart Associated angina: without angina Qualified Code(s): I25.10 - Atherosclerotic heart disease of [place] coronary artery without angina pectoris (5) COPD (chronic obstructive pulmonary disease) Qualifiers: COPD type: unspecified COPD Qualified Code(s): J44.9 - Chronic obstructive pulmonary disease, unspecified (6) HTN (hypertension) Qualifiers: Hypertension type: essential hypertension Qualified Code(s): I10 - Essential (primary) hypertension (7) Hypothyroidism Qualifiers: Hypothyroidism type: unspecified Qualified Code(s): E03.9 - Hypothyroidism, unspecified
[2018-11-19 17:03] LABS: ABG Base Excess -4 mEq/L (-2 to 3); ABG HCO3 21 mEq/L (21-27); ABG Oxygen Saturation 96 % (95-98); ABG PCO2 32 mmHg (35-45); ABG PH 7.41 pH Units (7.32-7.45); ABG PO2 82 mmHg (85-104); ABG TCO2 22 mEq/L (20-26)
[2018-11-19] MEDS: Ipratropium/Albuterol Neb 3 ML IH SCH ×3 (17:07→23:15)
[2018-11-19] MEDS: traMADol 50 MG TABLET PO PRN (18:04)
--- NOTE | 2018-11-19 18:56 | Pulmonology Consult Note ---
Date of Encounter: 11/19/18 Time of Encounter: 16:00 Assessment and Plan (1) Acute kidney injury superimposed on chronic kidney disease Current Visit: Yes Status: Acute (2) Acute on chronic respiratory failure with hypoxia Current Visit: Yes Status: Acute Patient has significant centrilobular emphysematous COPD disease now complicated by pulmonary edema most likely due to acute on chronic kidney disease. To do arterial blood gas analysis if she is hypoxic alone we can attempt high flow nasal cannula if she is hypercarbic we will put her on BiPAP therapy have a low threshold TO shifting to the ICU. Thank you for the critical care consultation please call with questions (3) Pleural effusion Current Visit: Yes Status: Acute Patient has minimal pleural effusion not enough to do thoracentesis. (4) COPD exacerbation Current Visit: No Status: Acute Patient presentation was COPD exacerbation is like pulmonary edema complicated severe COPD she already had. History of Present Illness Consult date: 11/19/18 Requesting physician: Ayush Waggoner Reason for consult: COPD, abnormal CXR/CT Chief complaint: Shortness of breath and hypoxia History of present illness: Ms. Weeks is a 68 year old female PMH of CAD s/p [facility] on October 22, HLD, hypothyroidism, COPD on 2 litters of O2 at home at night, and HTN. Patient presented to the ED due to worsening kidney function. Prior to this patient had a left heart catheterization most likely contrast induced acute kidney injury patient developed worsening metabolic acidosis and pulmonary edema developed acute on chronic respiratory failure chest x-ray consistent with bilateral pulmonary edema with background of centrilobular emphysema pulmonary was consulted for management of acute on chronic hypoxic respiratory failure. Past Med Surg Social Fam HX - Past Medical History Medical history: asthma, COPD, CVA, hypertension, other Additional medical history: heart cath , heart stent, lung cancer Psychiatric history: anxiety - Past Surgical History Surgical History: appendectomy, cholecystectomy Additional surgical history: upper left lobe removed, stents x3 - Social History Smoking Status: Current every day smoker Smokeless Tobacco Status: No Alcohol use: none Drug use: none Medications and Allergies Meclizine HCl [Verticalm] 25 mg PO BID PRN #10 tablet 01/29/18 [Rx] Atenolol [Tenormin] 50 mg PO DAILY 10/21/18 [History] Clopidogrel [Plavix] 75 mg PO DAILY 10/21/18 [History] Fluticasone/Salmeterol [Advair 250-50 Diskus] 1 puff IH BID 10/21/18 [History] LORazepam [Ativan] 1 mg PO TID 10/21/18 [History] Levothyroxine [Synthroid] 75 mcg PO QAM 10/21/18 [History] Losartan Potassium [Cozaar] 50 mg PO BID 10/21/18 [History] Omeprazole [PriLOSEC] 20 mg PO DAILY 10/21/18 [History] amLODIPine [Norvasc] 5 mg PO DAILY 10/21/18 [History] Albuterol Sulfate [Ventolin Hfa] 2 puff IH Q4H PRN 11/14/18 [History] Aspirin [Adult Aspirin Regimen] 81 mg PO DAILY 11/14/18 [History] Ipratropium Vidor 1 each IH Q4-6H PRN 11/14/18 [History] Ipratropium/Albuterol Sulfate [Iprat-Albut 0.5-3(2.5) mg/3 ml] 3 ml IH Q6H PRN 11/14/18 [History] Allergy/AdvReac Type Severity Reaction Status Date / Time atorvastatin Allergy See Verified 11/14/18 11:40 Comments doxycycline Allergy Rash Verified 10/21/18 16:25 Sulfa (Sulfonamide Allergy Rash Verified 10/21/18 16:25 Antibiotics) codeine AdvReac Nausea Verified 10/21/18 16:25 hydrocodone [From Vicodin] AdvReac Irritable Verified 10/21/18 16:25 All Systems: The remainder of the systems were reviewed and are negative Physical Examination Vital Signs: Vital Signs, Last 4 Hours Temp Pulse Resp BP Pulse Ox 11/19/18 17:38 99.0 F 75 30 136/84 95 11/19/18 17:27 22 96 11/19/18 16:10 97.8 F 26 136/77 11/19/18 15:55 132/70 11/19/18 15:50 124/65 11/19/18 15:35 133/73 11/19/18 15:20 97.9 F 20 140/76 11/19/18 15:03 99.0 F 76 22 150/74 94 General appearance: appears uncomfortable Effort: mildly labored Auscultation: bilateral: rales Cardiovascular: regular rate and rhythm Gastrointestinal: normoactive bowel sounds non-focal exam (Patient is little bit drowsy.) Results - Laboratory Findings CBC and BMP: 11/19/18 06:40 11/19/18 06:40 ABG ABG pH 7.41 pH Units (7.32-7.45) 11/19/18 17:00 ABG pCO2 32 mmHg (35-45) L 11/19/18 17:00 ABG pO2 82 mmHg (85-104) L 11/19/18 17:00 ABG O2 Saturation 96 % (95-98) 11/19/18 17:00 PT/INR, D-dimer PT 12.6 Seconds (9.4-12.1) H 11/18/18 11:06 Abnormal lab findings: Abnormal lab results WBC 11.2 K/mcL (4.3-11.1) H 11/19/18 06:40 RBC 3.62 M/mcL (3.82-4.97) L 11/19/18 06:40 Hgb 9.9 g/dL (11.5-15.4) L 11/19/18 06:40 Hct 29.9 % (35.3-44.9) L 11/19/18 06:40 MCV 82.6 fL (83.0-100.0) L 11/19/18 06:40 MCH 27.3 pg (28.0-33.3) L 11/19/18 06:40 Eosinophils # 1.4 K/mcL (0.0-0.6) H 11/19/18 06:40 PT 12.6 Seconds (9.4-12.1) H 11/18/18 11:06 ABG pCO2 32 mmHg (35-45) L 11/19/18 17:00 ABG pO2 82 mmHg (85-104) L 11/19/18 17:00 ABG Base Excess -4 mEq/L (-2 to 3) L 11/19/18 17:00 Sodium 133 mEq/L (136-145) L 11/19/18 06:40 Carbon Dioxide 21 mEq/L (23-29) L 11/19/18 06:40 BUN 67 mg/dL (8-23) H 11/19/18 06:40 Creatinine 5.48 mg/dL (0.60-1.20) H 11/19/18 06:40 Est GFR ( Amer) 9 (> 60) L 11/19/18 06:40 Est GFR (Non-Af Amer) 8 (> 60) L 11/19/18 06:40 Glucose 107 mg/dL (70-105) H 11/19/18 06:40 Magnesium 1.5 mg/dL (1.6-2.6) L 11/15/18 03:22 Iron 14 mcg/dL (50-170) L 11/17/18 06:17 % Saturation 5 % (15-50) L 11/17/18 06:17 Ferritin 202 ng/mL (10-120) H 11/17/18 06:17 Troponin I 0.08 ng/mL (< 0.04) H* 11/19/18 06:40 B-Natriuretic Peptide 371 pg/mL (Less than 100) H 11/14/18 10:24 Vitamin B12 > 1500 pg/mL (250-1100) H 11/17/18 06:17 Folate > 22.3 ng/mL (3.0-16.0) H 11/17/18 06:17 TSH 8.042 mcIU/mL (0.340-5.600) H 11/14/18 10:24 Total T3 0.54 ng/mL (0.87-1.78) L 11/15/18 03:22 Urine Protein 30 mg/dL (Neg-Trace) H 11/14/18 10:13 Ur Squamous Epith Cells Many per lpf (None-Few) H 11/14/18 10:13 Hep Bs Antibody 3.49 mIU/mL (10.00-) L 11/19/18 07:36 - Clinical Findings Intake & Output: Intake & Output 11/19/18 11/19/18 11/19/18 07:59 15:59 23:59 Intake Total 880 / 880 Output Total 250 / 250 200 / 200 688 / 688 Balance -250 / -250 680 / 680 -688 / -688 Consult Discharge Plan - Plan Referrals: Patricia Topete, [employer]ER [Primary Care Provider] -
[2018-11-20 01:45] LABS: Hematocrit 29.3 % (35.3-44.9); Hemoglobin 9.6 g/dL (11.5-15.4); Mean Corpuscular HGB Conc 32.8 g/dL (31.6-35.5); Mean Corpuscular Volume 82.3 fL (83.0-100.0); Mean Platelet Volume 10.1 fL (9.4-12.4); Platelet Count 314 K/mcL (140-400); Red Blood Count 3.56 M/mcL (3.82-4.97)
[2018-11-20 02:03] LABS: Calcium 9.2 mg/dL (8.6-10.3); Potassium 4.6 mEq/L (3.5-5.1)
[2018-11-20] MEDS: Ipratropium/Albuterol Neb 3 ML IH SCH ×5 (03:39→20:40)
[2018-11-20] MEDS: *HR* Heparin 5,000 UNIT/ML VIAL SQ SCH ×2 (06:09→18:30)
[2018-11-20] MEDS: Budesonide/Formoterol 80/4.5 MDI IH SCH ×2 (07:22→20:40)
[2018-11-20] MEDS ORDERED: *HR* Heparin 10,000 UNIT/10 ML VIAL IV PRN (07:38)
[2018-11-20] MEDS ORDERED: 0.9 % Sodium Chloride 250 ML IVC PRN (07:38)
[2018-11-20] MEDS ORDERED: 0.9 % Sodium Chloride 1,000 ML PRIME SCH (07:45)
[2018-11-20] MEDS ORDERED: 0.9 % Sodium Chloride 2,000 ML ONE (08:10)
[2018-11-20] MEDS: *HR* LORazepam 1 MG TABLET PO SCH ×3 (08:24→19:41)
[2018-11-20] MEDS: amLODIPine 5 MG TABLET PO SCH (08:24)
[2018-11-20] MEDS: Aspirin Enteric Coated 81 MG Tablet PO SCH (09:00)
[2018-11-20] MEDS: Nitroglycerin 0.2 MG PATCH.TD24 TD SCH (13:41)
--- NOTE | 2018-11-20 16:12 | Nephrology Progress Note ---
Date of Encounter: 11/20/18 Time of Encounter: 16:12 - Assessment and Plan (1) Acute kidney injury superimposed on chronic kidney disease Current Visit: Yes Status: Acute The patient has acute kidney injury superimposed on chronic kidney disease that appears to be secondary to dehydration and possibly INNA from contrast exposure. She initially responded to MIV, but this had to be held secondary to worsening respiratory failure. Her renal function started to worsen. Today both her respiratory status and renal function have worsened significantly. Attempt at thoracentesis was negative for a fluid pocket that could be drained. The patient and are agreeable to hemodialysis for volume control. Hemodialysis orders were placed and a consult was placed in IR for a temporary dialysis catheter. The patient went to hemodialysis and I was called urgently secondary to acute hypoxia when the patient started dialysis. When I was in the room the primary hospitalist was also there. The patient was placed on a nonrebreather mask with improvement in her oxygenation. Her blood pressure was stable. I decided to terminate hemodialysis as she was not stable from respiratory standpoint. I also recommended that the patient's go to a higher level of care. I also recommended a bone a consult secondary to worsening respiratory status. The etiology of the patient's worsening respiratory status is not completely clear but seems to be associated with pulmonary edema. Secondary to her acute hypoxia she may need a CT pulmonary angiogram. This is less likely to be cardiac in nature secondary to a recent cardiac catheterization however it may be prudent to check cardiac enzymes if no other etiology is found. We will reevaluate tomorrow for the need for dialysis. Avoid nephrotoxic agents and adjust medications for renal function. 09/22/2018 Patient seen on dialysis. She had another episode of her oxygen saturation decreasing to the mid 70s for unclear reasons. Her CT overnight was negative for PE. She has been seen by pulmonary and cardiology without a clear etiology. I spoke with cardiology who wishes to try continuous dialysis. Will enter orders. Unsure if it will work better, but at this time her response to iHD peculiar and unexplained and I think she would benefit from dialysis. 32 minutes spent in the care of this critically ill patient. (2) COPD exacerbation Current Visit: No Status: Acute (3) CAD (coronary artery disease) Current Visit: Yes Status: Chronic Qualifiers: Coronary Disease-Associated Artery/Lesion type: [place] artery [place] vs. transplanted heart: [place] heart Associated angina: without angina Qualified Code(s): I25.10 - Atherosclerotic heart disease of [place] coronary artery without angina pectoris (4) HTN (hypertension) Current Visit: Yes Status: Chronic Qualifiers: Hypertension type: essential hypertension Qualified Code(s): I10 - Essential (primary) hypertension (5) Hypothyroidism Current Visit: Yes Status: Chronic Qualifiers: Hypothyroidism type: unspecified Qualified Code(s): E03.9 - Hypothyroidism, unspecified (6) Nausea Current Visit: Yes Status: Acute (7) Pleural effusion Current Visit: Yes Status: Acute Subjective Principal diagnosis: BJ on CKD, mild trop Interval history: Patient seen and evaluated. She was seen while on dialysis. She had another episode where her O2 saturation decreased to 77%. She was less responsive. She recovered after dialysis was discontinued and her supplemental oxygen was increased. Objective - Vital Signs Vital signs: Vital Signs Temp Pulse Resp BP Pulse Ox 11/20/18 15:59 16 98 11/20/18 11:58 98.7 F 70 18 128/66 95 11/20/18 11:11 18 98 11/20/18 09:55 97.7 F 24 118/63 11/20/18 09:39 138/71 11/20/18 09:25 97.8 F 20 142/70 11/20/18 07:55 72 18 97 11/20/18 07:22 18 94 11/20/18 07:14 98.2 F 74 20 154/81 95 11/20/18 03:40 20 94 11/20/18 03:26 98.6 F 72 22 149/81 92 11/19/18 23:59 98.3 F 80 25 150/80 95 11/19/18 23:15 18 98 11/19/18 20:25 98.8 F 79 22 148/81 98 11/19/18 19:32 24 98 11/19/18 17:38 99.0 F 75 30 136/84 95 11/19/18 17:27 22 96 Intake and Output 11/20/18 11/20/18 11/20/18 07:59 15:59 23:59 Intake Total 780 / 780 Output Total 400 / 400 400 / 400 Balance -400 / -400 380 / 380 Intake: Oral 180 / 180 Intake, Rinseback and Flushes 600 / 600 Output: Urine 400 / 400 400 / 400 Other: Meal Breakfast Percent of Meal Consumed 50% Hemodialysis Net Fluid Removed 0 (mL) - General Appearance General appearance: Present: well-developed, well-nourished EENT: Present: ATNC Neck: Present: supple Respiratory: Present: course breath sounds Cardiology: Present: edema, regular rate Dialysis Vascular Access: Venous Catheter Gastrointestinal: Present: no tenderness Integumentary: Present: warm and dry Additional Comments: Alert, but lethargic. Musculoskeletal: Present: no cyanosis Psychiatric: Present: agitated - Lab 11/20/18 01:04 11/20/18 01:04 Most recent lab results ABG pH 7.41 pH Units (7.32-7.45) 11/19/18 17:00 ABG pCO2 32 mmHg (35-45) L 11/19/18 17:00 ABG pO2 82 mmHg (85-104) L 11/19/18 17:00 ABG HCO3 21 mEq/L (21-27) 11/19/18 17:00 ABG O2 Saturation 96 % (95-98) 11/19/18 17:00 Calcium 9.2 mg/dL (8.6-10.3) 11/20/18 01:04 Phosphorus 4.3 mg/dL (2.7-4.5) 11/15/18 03:22 Magnesium 1.5 mg/dL (1.6-2.6) L 11/15/18 03:22 Consult Discharge Plan - Plan Referrals: Patricia Topete CNP [Primary Care Provider] - 11/29/18 9:00 am
[2018-11-20 18:28] LABS: Sodium, Urine 48.9 mEq/L
--- NOTE | 2018-11-20 18:50 | Internal Med Progress Note ---
Hospitalist Progress Note - Encounter Date of Encounter: 11/20/18 Time of Encounter: 11:00 - Subjective Interval History: Plans for Daniella dialysis that patient will need to be transferred to the ICU and currently wait list for transfer. - Exam Vitals: Temp Pulse Resp BP Pulse Ox 98.5 F 68 16 135/73 97 11/20/18 16:59 11/20/18 18:30 11/20/18 18:30 11/20/18 16:59 11/20/18 18:30 Exam: Gen.: Nonacute distress, alert and oriented 3 ENT: Mucosal membranes moist Respiratory: Lungs are clear to auscultation bilaterally without any wheezing rhonchi or rales Cardiovascular: Normal S1 and S2 regular rate rhythm no murmurs rubs or gallops Abdomen: Soft, nontender and nondistended with positive bowel sounds Extremities: No lower extremity edema Skin: Normal color - Assessment and Plan (1) BJ (acute kidney injury) Current Visit: Yes Status: Acute Assessment and Plan: Renal function without improvement. Plans for Danilela dialysis that patient will need to be transferred to the ICU and currently wait list for transfer. (2) CAD (coronary artery disease) Current Visit: Yes Status: Chronic Assessment and Plan: Continue aspirin, Plavix. (3) COPD (chronic obstructive pulmonary disease) Current Visit: Yes Status: Chronic Assessment and Plan: Pulmonology consulted and suspects patient with significant centrilobular emphysematous COPD disease Continue bronchodilators as needed. Continue Symbicort. (4) HTN (hypertension) Current Visit: Yes Status: Chronic Assessment and Plan: On Amlodipine, atenolol. Will continue to monitor and adjust antihypertensive regimen. (5) Hypothyroidism Current Visit: Yes Status: Chronic Assessment and Plan: Continue levothyroxin (6) Congestive heart failure (CHF) Current Visit: Yes Status: Acute Assessment and Plan: Stable; continue to monitor (7) Acute on chronic respiratory failure with hypoxia Current Visit: Yes Status: Acute DVT Prophylaxis: subcutaneous heparin - Time Spent with Patient Total time spent is greater than 50% in coordination of care (as documented) at patient's floor/unit and/or counseling patient: Internal Medicine: Result - Labs CBC & Chem 7: 11/20/18 01:04 11/20/18 01:04 Labs: Short CBC 11/20/18 Range/Units 01:04 WBC 11.1 (4.3-11.1) K/mcL Hgb 9.6 L (11.5-15.4) g/dL Hct 29.3 L (35.3-44.9) % Plt Count 314 (140-400) K/mcL BMP 11/20/18 01:04 Sodium 132 L Potassium 4.6 Chloride 98 Carbon Dioxide 22 L BUN 72 H Creatinine 5.40 H Glucose 99 Calcium 9.2 - ABG Interpretation ABG results: ABG ABG pH 7.41 pH Units (7.32-7.45) 11/19/18 17:00 ABG pCO2 32 mmHg (35-45) L 11/19/18 17:00 ABG pO2 82 mmHg (85-104) L 11/19/18 17:00 ABG O2 Saturation 96 % (95-98) 11/19/18 17:00 PT/INR, D-dimer PT 12.6 Seconds (9.4-12.1) H 11/18/18 11:06 - Impressions Impressions Chest Ultrasound 11/18/18 10:41 IMPRESSION: Very small right pleural effusion. No thoracentesis was performed. D/ / Paul Canales / Paul Canales Interpreting Provider: Paul Canales Chest CTA 11/19/18 16:13 IMPRESSION: No findings diagnostic of pulmonary embolus Multifocal airspace disease bilaterally along with bilateral pleural effusions. This is non-specific and may represent pulmonary edema or pneumonia Multiple lymph nodes are increased in size from the prior. These are likely reactive. However, follow-up is recommended Multifocal irregularity of the aorta is noted. Some of the contour changes are slightly more pronounced compared to the prior examination, in particular the posterior aspect of the ascending aorta. This may be due to differences in timing of the bolus and differences in slice selection/slice thickness. Tiny developing new pseudoaneurysm would be difficult to exclude. If the patient has continued chest pain, consider follow-up imaging. D/ / Caleb Bermudez / Caleb Bermudez Interpreting Provider: Caleb Bermudez Consult Discharge Plan - Plan Referrals: Topete,Patricia L, [employer]ICER [Primary Care Provider] - 11/29/18 9:00 am ____ (2) CAD (coronary artery disease) Qualifiers: Coronary Disease-Associated Artery/Lesion type: [place] artery [place] vs. transplanted heart: [place] heart Associated angina: without angina Qualified Code(s): I25.10 - Atherosclerotic heart disease of [place] coronary artery withou t angina pectoris (3) COPD (chronic obstructive pulmonary disease) Qualifiers: COPD type: unspecified COPD Qualified Code(s): J44.9 - Chronic obstructive pulmonary disease, unspecified (4) HTN (hypertension) Qualifiers: Hypertension type: essential hypertension Qualified Code(s): I10 - Essential (primary) hypertension (5) Hypothyroidism Qualifiers: Hypothyroidism type: unspecified Qualified Code(s): E03.9 - Hypothyroidism, unspecified (6) Congestive heart failure (CHF) Qualifiers: Heart failure type: diastolic Heart failure chronicity: acute on chronic Qualified Code(s): I50.33 - Acute on chronic diastolic (congestive) heart failure
[2018-11-20] MEDS: *HR* Promethazine 25 MG/ML VIAL IVP PRN (19:42)
[2018-11-21] MEDS: Ipratropium/Albuterol Neb 3 ML IH SCH ×7 (00:10→23:43)
[2018-11-21] MEDS: *HR* Heparin 5,000 UNIT/ML VIAL SQ SCH ×2 (05:48→18:14)
[2018-11-21 06:23] LABS: Hematocrit 24.4 % (35.3-44.9); Mean Corpuscular HGB Conc 32.8 g/dL (31.6-35.5); Mean Corpuscular Volume 82.4 fL (83.0-100.0); Mean Platelet Volume 9.9 fL (9.4-12.4); Platelet Count 258 K/mcL (140-400); Red Blood Count 2.96 M/mcL (3.82-4.97); Red Cell Distribution Width 14.3 % (11.5-14.5)
[2018-11-21 06:57] LABS: Calcium 8.9 mg/dL (8.6-10.3); Potassium 4.3 mEq/L (3.5-5.1)
[2018-11-21] MEDS ORDERED: Ondansetron 4 MG/2 ML VIAL IVP PRN (07:15)
[2018-11-21] MEDS: Budesonide/Formoterol 80/4.5 MDI IH SCH ×2 (07:29→19:52)
--- NOTE | 2018-11-21 07:45 | Internal Med Progress Note ---
Hospitalist Progress Note - Encounter Date of Encounter: 11/21/18 Time of Encounter: 11:00 - Subjective Interval History: Patient is a 68-year-old female with past medical history significant for O2 dependent COPD daily at bedtime and coronary arterial disease with recent left heart catheter on 10/22/18 who presents due to generalized weakness found to have acute kidney injury secondary to acute interstitial nephritis which is suspected to be contrast induced. No improvement in renal function this morning with plans for Daniella per nephrology. This morning patient also continues to complain of nausea and vomiting and KUB has been ordered in addition to Zofran as needed - Exam Vitals: Temp Pulse Resp BP Pulse Ox 98.6 F 76 18 140/74 92 11/21/18 07:15 11/21/18 07:15 11/21/18 07:31 11/21/18 07:15 11/21/18 07:31 Exam: Gen.: Nonacute distress, alert and oriented 3 ENT: Mucosal membranes moist Respiratory: Lungs are clear to auscultation bilaterally without any wheezing rhonchi or rales Cardiovascular: Normal S1 and S2 regular rate rhythm no murmurs rubs or gallops Abdomen: Soft, nontender and nondistended with positive bowel sounds Extremities: No lower extremity edema Skin: Normal color - Assessment and Plan (1) BJ (acute kidney injury) Current Visit: Yes Status: Acute Assessment and Plan: Suspect due to acute interstitial nephritis thought to be contrast-induced Renal function without improvement. SCr: 4.52->4.86->5.48->5.40->5.97 GFR: 10->9->9->8->7 Nephrology following with plans for Daniella dialysis but patient will need to be transferred to the ICU and currently wait list for transfer. (2) Acute on chronic respiratory failure with hypoxia Current Visit: Yes Status: Acute Assessment and Plan: Patient with acute on chronic hypoxic respiratory failure still requiring high amounts of O2 supplementation this morning at 8 liters of high flow nasal cannula. CT angiogram of the chest showed no PE but multifocal airspace disease bilaterally was identified. Pulmonology was consulted and suspects secondary to patient's significant centrilobular emphysema to COPD disease compensated with pulmonary edema. Pleural effusions minimal and not enough for thoracentesis per pulmonology Emmenology following an appreciate any further recommendations. (3) Elevated troponin Current Visit: Yes Status: Acute Assessment and Plan: Patient with elevated troponins suspected to be secondary to demand ischemia per cardiology Will continue to monitor on telemetry Appreciate any further recommendations from cardiology (4) CAD (coronary artery disease) Current Visit: Yes Status: Chronic Assessment and Plan: Patient with recent left heart catheterization on 10/22/18 Continue aspirin, Plavix. (5) COPD (chronic obstructive pulmonary disease) Current Visit: Yes Status: Chronic Assessment and Plan: Pulmonology consulted and suspects patient with significant centrilobular emphysematous COPD disease Continue bronchodilators as needed. (6) HTN (hypertension) Current Visit: Yes Status: Chronic Assessment and Plan: On Amlodipine, atenolol. Will continue to monitor and adjust antihypertensive regimen. (7) Hypothyroidism Current Visit: Yes Status: Chronic Assessment and Plan: Continue levothyroxin DVT Prophylaxis: Heparin subcutaneous - Time Spent with Patient Total time spent is greater than 50% in coordination of care (as documented) at patient's floor/unit and/or counseling patient: Internal Medicine: Result - Labs CBC & Chem 7: 11/21/18 05:55 11/21/18 05:55 Labs: Short CBC 11/21/18 Range/Units 05:55 WBC 12.4 H (4.3-11.1) K/mcL Hgb 8.0 L D (11.5-15.4) g/dL Hct 24.4 L (35.3-44.9) % Plt Count 258 (140-400) K/mcL BMP 11/21/18 05:55 Sodium 133 L Potassium 4.3 Chloride 98 Carbon Dioxide 21 L BUN 81 H Creatinine 5.97 H Glucose 110 H Calcium 8.9 - ABG Interpretation ABG results: ABG ABG pH 7.41 pH Units (7.32-7.45) 11/19/18 17:00 ABG pCO2 32 mmHg (35-45) L 11/19/18 17:00 ABG pO2 82 mmHg (85-104) L 11/19/18 17:00 ABG O2 Saturation 96 % (95-98) 11/19/18 17:00 PT/INR, D-dimer PT 12.6 Seconds (9.4-12.1) H 11/18/18 11:06 - Impressions Impressions Chest Ultrasound 11/18/18 10:41 IMPRESSION: Very small right pleural effusion. No thoracentesis was performed. D/ / Paul Canales / Paul Canales Interpreting Provider: Paul Canales Consult Discharge Plan - Plan Referrals: Patricia Topete [employer] [Primary Care Provider] - 11/29/18 9:00 am (4) CAD (coronary artery disease) Qualifiers: Coronary Disease-Associated Artery/Lesion type: [place] artery [place] vs. transplanted heart: [place] heart Associated angina: without angina Qualified Code(s): I25.10 - Atherosclerotic heart disease of [place] coronary artery without angina pectoris (5) COPD (chronic obstructive pulmonary disease) Qualifiers: COPD type: unspecified COPD Qualified Code(s): J44.9 - Chronic obstructive pulmonary disease, unspecified (6) HTN (hypertension) Qualifiers: Hypertension type: essential hypertension Qualified Code(s): I10 - Essential (primary) hypertension (7) Hypothyroidism Qualifiers: Hypothyroidism type: unspecified Qualified Code(s): E03.9 - Hypothyroidism, unspecified
[2018-11-21] MEDS: Nitroglycerin 0.2 MG PATCH.TD24 TD SCH (09:55)
[2018-11-21] MEDS: *HR* LORazepam 1 MG TABLET PO SCH ×3 (09:55→18:19)
[2018-11-21] MEDS: amLODIPine 5 MG TABLET PO SCH (09:55)
[2018-11-21] MEDS: Aspirin Enteric Coated 81 MG Tablet PO SCH (09:55)
[2018-11-21] MEDS ORDERED: *HR* Alteplase (Cathflo) 2 MG VIAL IVP PRN (13:02)
[2018-11-21] MEDS ORDERED: 0.9 % Sodium Chloride 1,000 ML PRIME ONE ×2 (13:02)
[2018-11-21] MEDS ORDERED: *HR* Heparin 5,000 UNIT/ML VIAL IVP PRN ×2 (13:02)
[2018-11-21] MEDS ORDERED: *HR* Heparin 5,000 UNIT/ML VIAL IVP ONE (13:02)
--- NOTE | 2018-11-21 15:12 | Nephrology Progress Note ---
Date of Encounter: 11/21/18 Time of Encounter: 15:12 - Assessment and Plan (1) Acute kidney injury superimposed on chronic kidney disease Current Visit: Yes Status: Acute The patient has acute kidney injury superimposed on chronic kidney disease that appears to be secondary to dehydration and possibly INNA from contrast exposure. She initially responded to MIV, but this had to be held secondary to worsening respiratory failure. Her renal function started to worsen. The last few days both her respiratory status and renal function have worsened significantly. Attempt at thoracentesis was negative for a fluid pocket that could be drained. The patient and are agreeable to hemodialysis for volume control. Hemodialysis orders were placed and a consult was placed in IR for a temporary dialysis catheter. The patient went to hemodialysis 11/19 and I was called urgently secondary to acute hypoxia when the patient started dialysis. When I was in the room the primary hospitalist was also there. The patient was placed on a nonrebreather mask with improvement in her oxygenation. Her blood pressure was stable. I decided to terminate hemodialysis as she was not stable from respiratory standpoint. I also recommended that the patient's go to a higher level of care. I also recommended a pulmonary consult secondary to worsening respiratory status. The etiology of the patient's worsening respiratory status is not completely c lear but seems to be associated with pulmonary edema. Secondary to her acute hypoxia i recommended a CT pulmonary angiogram. This is less likely to be cardiac in nature secondary to a recent cardiac catheterization however it may be prudent to check cardiac enzymes if no other etiology is found. We will reevaluate tomorrow for the need for dialysis. Avoid nephrotoxic agents and adjust medications for renal function. 09/22/2018 Patient seen on dialysis. She had another episode of her oxygen saturation decreasing to the mid 70s for unclear reasons. Her CT overnight was negative for PE. She has been seen by pulmonary and cardiology without a clear etiology. I spoke with cardiology who wishes to try continuous dialysis. Will enter orders. Unsure if it will work better, but at this time her response to iHD peculiar and unexplained and I think she would benefit from dialysis. 09/23 The patient was seen in her room on 2 N. They have not been able to get a bed in the intensive care unit to give a trial of continuous dialysis. The patient appears better than she did when she was on dialysis yesterday. She still has some dyspnea but it is better than it was yesterday. I spoken with the primary team and the plan is still for the patient to trial continuous dialysis once a bed is available in the intensive care unit. I did speak with the patient as well as with the patient's family member at the bedside. My recommendations is that if she is unable to tolerate continuous dialysis and remains dyspneic without a explanation they should consider a second opinion at a tertiary care hospital. At the time my evaluation they are agreeable to referral if her symptoms do not improve. (2) COPD exacerbation Current Visit: No Status: Acute (3) CAD (coronary artery disease) Current Visit: Yes Status: Chronic Qualifiers: Coronary Disease-Associated Artery/Lesion type: [place] artery [place] vs. transplanted heart: [place] heart Associated angina: without angina Qualified Code(s): I25.10 - Atherosclerotic heart disease of [place] coronary artery without angina pectoris (4) HTN (hypertension) Current Visit: Yes Status: Chronic Qualifiers: Hypertension type: essential hypertension Qualified Code(s): I10 - Essential (primary) hypertension (5) Hypothyroidism Current Visit: Yes Status: Chronic Qualifiers: Hypothyroidism type: unspecified Qualified Code(s): E03.9 - Hypothyroidism, unspecified (6) Nausea Current Visit: Yes Status: Acute (7) Pleural effusion Current Visit: Yes Status: Acute (8) Abnormal CT of the chest Current Visit: Yes Status: Acute Will defer management to the primary team. CT PA "Multifocal irregularity of the aorta is noted. Some of the contour changes are slightly more pronounced compared to the prior examination, in particular the posterior aspect of the ascending aorta. This may be due to differences in timing of the bolus and differences in slice selection/slice thickness. Tiny developing new pseudoaneurysm would be difficult to exclude. If the patient has continued chest pain, consider follow-up imaging." Subjective Principal diagnosis: BJ on CKD, mild trop Interval history: Patient seen and evaluated. She was sitting up on the side of the bed. Her was at her bedside. She was more alert than she was when I saw on dialysis. She still has shortness of breath. She denies chest pain. She denies nausea. She felt fatigued. Objective - Vital Signs Vital signs: Vital Signs Temp Pulse Resp BP Pulse Ox 11/21/18 15:07 98.5 F 75 20 127/63 90 11/21/18 13:30 80 17 92 11/21/18 11:15 98.5 F 76 25 137/74 93 11/21/18 09:25 93 11/21/18 09:13 80 24 93 11/21/18 07:31 18 92 11/21/18 07:15 98.6 F 76 22 140/74 92 11/21/18 04:38 99.1 F 79 20 132/72 95 11/21/18 03:36 16 94 11/21/18 00:13 12 94 11/20/18 20:41 18 95 11/20/18 19:13 98.9 F 69 18 140/71 97 11/20/18 18:30 68 16 97 11/20/18 16:59 98.5 F 70 14 135/73 96 11/20/18 15:59 16 98 Intake and Output 11/20/18 11/21/18 11/21/18 23:59 07:59 15:59 Intake Total 60 / 60 0 / 0 Output Total 300 / 300 Balance 60 / 60 -300 / -300 0 / 0 Intake: Oral 60 / 60 0 / 0 Output: Urine 300 / 300 Other: Meal NPO Percent of Meal Consumed 0% Weight 65.3 kg Patient Weight 11/21/18 23:59 Weight 65.3 kg - General Appearance General appearance: Present: well-developed, well-nourished, frail EENT: Present: ATNC Neck: Present: supple Respiratory: Present: course breath sounds, rhonchi Cardiology: Present: edema, regular rate Dialysis Vascular Access: Venous Catheter Gastrointestinal: Present: no tenderness Integumentary: Present: warm and dry Neurologic: Present: alert and oriented x3 Musculoskeletal: Present: no cyanosis Psychiatric: Present: mood/affect appropriate - Lab 11/21/18 05:55 11/21/18 05:55 Most recent lab results ABG pH 7.41 pH Units (7.32-7.45) 11/19/18 17:00 ABG pCO2 32 mmHg (35-45) L 11/19/18 17:00 ABG pO2 82 mmHg (85-104) L 11/19/18 17:00 ABG HCO3 21 mEq/L (21-27) 11/19/18 17:00 ABG O2 Saturation 96 % (95-98) 11/19/18 17:00 Calcium 8.9 mg/dL (8.6-10.3) 11/21/18 05:55 Phosphorus 4.3 mg/dL (2.7-4.5) 11/15/18 03:22 Magnesium 1.5 mg/dL (1.6-2.6) L 11/15/18 03:22 Urine Creatinine 79 mg/dL 11/20/18 17:48 Urine Sodium 48.9 mEq/L 11/20/18 17:48 Consult Discharge Plan - Plan Referrals: Patricia Topete CNP [Primary Care Provider] - 11/29/18 9:00 am
[2018-11-21] MEDS: PrismaSATE BGK 4/2.5 5,000 ML CRRT SCH ×9 (17:45→23:17)
[2018-11-21] MEDS: traMADol 50 MG TABLET PO PRN (18:14)
[2018-11-21] MEDS: *HR* Heparin 5,000 UNIT/ML VIAL IV PRN (22:17)
[2018-11-21] MEDS: 0.9 % Sodium Chloride 1,000 ML PRIME SCH ×2 (22:19→22:20)
[2018-11-22] MEDS: PrismaSATE BGK 4/2.5 5,000 ML CRRT SCH ×9 (01:52→08:09)
[2018-11-22] MEDS ORDERED: *HR* LORazepam 2 MG/ML VIAL IVP ONE (03:21)
[2018-11-22 03:30] LABS: Basophils # 0.1 K/mcL (0.0-0.2); Basophils % 0.6 %; Eosinophils # 0.5 K/mcL (0.0-0.6); Eosinophils % 4.3 %; Hematocrit 26.1 % (35.3-44.9); Hemoglobin 8.5 g/dL (11.5-15.4); Immature Granulocytes % 1.4 % (0-4); Lymphocytes % 7.7 %; Mean Corpuscular HGB Conc 32.6 g/dL (31.6-35.5); Mean Corpuscular Hemoglobin 27.2 pg (28.0-33.3); Mean Corpuscular Volume 83.4 fL (83.0-100.0); Mean Platelet Volume 9.4 fL (9.4-12.4); Monocytes # 1.3 K/mcL (0.0-1.3); Monocytes % 10.3 %; Neutrophils # 9.5 K/mcL (1.6-8.9); Platelet Count 277 K/mcL (140-400); Red Blood Count 3.13 M/mcL (3.82-4.97); Red Cell Distribution Width 14.5 % (11.5-14.5); Segmented Neutrophils % 75.7 %
[2018-11-22 03:49] LABS: Albumin 3.2 g/dL (3.5-5.7); Albumin/Globulin Ratio 1.2 (1.1-2.2); Bilirubin,Direct 0.1 mg/dL (0.0-0.2); Bilirubin,Indirect 0.4 mg/dL (0.0-1.2); Bilirubin,Total 0.5 mg/dL (0.3-1.0); Calcium 8.2 mg/dL (8.6-10.3); Globulin 2.7 g/dL (2.4-3.5); Magnesium 2.3 mg/dL (1.6-2.6); Phosphorous 2.5 mg/dL (2.7-4.5); Potassium 4.6 mEq/L (3.5-5.1); Total Protein 5.9 g/dL (6.4-8.9)
[2018-11-22 03:53] LABS: ABG Base Excess 1 mEq/L (-2 to 3); ABG HCO3 27 mEq/L (21-27); ABG Oxygen Saturation 92 % (95-98); ABG PCO2 46 mmHg (35-45); ABG PH 7.37 pH Units (7.32-7.45); ABG PO2 65 mmHg (85-104); ABG TCO2 28 mEq/L (20-26)
[2018-11-22] MEDS: Ipratropium/Albuterol Neb 3 ML IH SCH ×5 (04:51→20:30)
[2018-11-22] MEDS: *HR* Heparin 5,000 UNIT/ML VIAL SQ SCH ×3 (05:20→22:46)
[2018-11-22] MEDS: *HR* Heparin 5,000 UNIT/ML VIAL IV PRN ×2 (05:20→11:02)
[2018-11-22] MEDS: 0.9 % Sodium Chloride 1,000 ML PRIME SCH (05:21)
[2018-11-22] MEDS: Nitroglycerin 0.2 MG PATCH.TD24 TD SCH (07:59)
[2018-11-22] MEDS: Aspirin Enteric Coated 81 MG Tablet PO SCH (08:00)
[2018-11-22] MEDS: amLODIPine 5 MG TABLET PO SCH (08:00)
[2018-11-22] MEDS: *HR* LORazepam 1 MG TABLET PO SCH ×2 (08:00→14:19)
--- NOTE | 2018-11-22 08:30 | Nephrology Progress Note ---
Date of Encounter: 11/22/18 Time of Encounter: 08:00 - Assessment and Plan (1) Acute kidney injury superimposed on chronic kidney disease Current Visit: Yes Status: Acute Was started on Daniella d/t anxiety attacks while on iHD. CVVHDF was started and the clearance was arranged for robust flows of prismasate/replacement fluid of 1999/1999, respectively; which, has caused the SCr to rapidly respond/correct. She was not placed on Citrate: the filter has clotted frequently already in this short span of Daniella and is about to clot again. Because she has responded so well and has such good BPs, she does not have a compelling indication for Daniella going forward, so I'll stop it in the coming minutes when the filter clots as the TMP in 200+ already. If she were to need iHD again, I would recommend reorienting her and allow her to be present (per his request). I'll continue to follow with you; will assess renal function daily; and I recommend renal dosing, strict I/Os, daily weights and avoidance of Nephrotoxins as able. Thank you. (2) COPD exacerbation Current Visit: No Status: Acute (3) CAD (coronary artery disease) Current Visit: Yes Status: Chronic Qualifiers: Coronary Disease-Associated Artery/Lesion type: [place] artery [place] vs. transplanted heart: [place] heart Associated angina: without angina Qualified Code(s): I25.10 - Atherosclerotic heart disease of [place] coronary artery without angina pectoris (4) HTN (hypertension) Current Visit: Yes Status: Chronic Qualifiers: Hypertension type: essential hypertension Qualified Code(s): I10 - Essential (primary) hypertension (5) Hypothyroidism Current Visit: Yes Status: Chronic Qualifiers: Hypothyroidism type: unspecified Qualified Code(s): E03.9 - Hypothyroidism, unspecified (6) Nausea Current Visit: Yes Status: Acute (7) Pleural effusion Current Visit: Yes Status: Acute (8) Abnormal CT of the chest Current Visit: Yes Status: Acute Subjective Principal diagnosis: BJ on CKD, mild trop Interval history: The patient was seen and examined while on CVVHDF. Her was present in the ICU room during my interview and exam. I updated him and answered all of his questions. The ICU nurse was also present and updated me on the patient's status (frequent Daniella filter clots). The pt opened her eyes but was not able to relate any verbal response. Objective - Vital Signs Vital signs: Vital Signs Temp Pulse Resp BP Pulse Ox 11/22/18 08:00 98.3 F 82 20 151/43 92 11/22/18 07:00 84 20 92 11/22/18 06:00 85 22 128/84 93 11/22/18 05:00 81 16 114/57 97 11/22/18 04:51 16 145/85 97 11/22/18 04:00 97.0 F L 82 21 148/85 96 11/22/18 03:50 82 11/22/18 03:00 83 23 159/70 91 11/22/18 02:00 85 21 154/92 91 11/22/18 01:00 84 23 146/94 93 11/22/18 00:00 96.8 F L 82 23 111/35 93 11/21/18 23:43 28 91 11/21/18 23:30 82 11/21/18 23:00 82 21 88/66 91 11/21/18 22:00 79 22 159/94 91 11/21/18 21:00 76 19 146/69 95 11/21/18 20:00 75 18 131/79 94 11/21/18 19:56 97.9 F 11/21/18 19:52 21 132/82 94 11/21/18 19:40 76 11/21/18 19:00 78 20 132/82 91 11/21/18 18:00 80 21 140/97 93 11/21/18 17:01 78 11/21/18 17:00 79 18 139/71 93 11/21/18 16:20 99.5 F 78 22 139/72 93 11/21/18 15:26 18 91 11/21/18 15:22 74 22 91 11/21/18 15:07 98.5 F 75 20 127/63 90 11/21/18 13:30 80 17 92 11/21/18 11:51 18 93 11/21/18 11:30 76 20 94 11/21/18 11:15 98.5 F 76 25 137/74 93 11/21/18 09:25 93 11/21/18 09:13 80 24 93 Intake and Output 11/21/18 11/22/18 11/22/18 23:59 07:59 15:59 Intake Total 100 / 100 50 / 50 Output Total 56 / 56 388 / 388 28 / 28 Balance 44 / 44 -338 / -338 - - Intake: IV Fluids 0 / 0 0 / 0 PrismaSATE BGK 4/2.5 5,000 ML @ 0 / 0 0 / 0 2000 mls/hr CRRT CONT FARHANA Rx#: [id number] Oral 100 / 100 50 / 50 Output: Urine 0 / 0 0 / 0 Daniella 56 / 56 / Catheter 365 / 365 0 / 0 Other: Weight 65.1 kg 65.1 kg 65.1 kg Blood Glucose* 117 92 Fluid Removed by Prismaflex - -08 26 Patient Weight 11/22/18 23:59 Weight 65.1 kg - General Appearance General appearance: Present: well-developed, well-nourished, fatigue, frail Exam: shivering EENT: Present: ATNC, PERRL, mucous membranes moist Neck: Present: supple Respiratory: Present: clear Cardiology: Present: regular rate, regular rhythm, normal S1, normal S2 Dialysis Vascular Access: Venous Catheter (Right IJ temporary HD catheter) Gastrointestinal: Present: normoactive bowel sounds, no tenderness, no guarding Neurologic: Present: confused, disoriented Musculoskeletal: Present: no erythema, no cyanosis - Lab 11/22/18 03:10 11/22/18 03:10 Most recent lab results ABG pH 7.37 pH Units (7.32-7.45) 11/22/18 03:50 ABG pCO2 46 mmHg (35-45) H 11/22/18 03:50 ABG pO2 65 mmHg (85-104) L 11/22/18 03:50 ABG HCO3 27 mEq/L (21-27) 11/22/18 03:50 ABG O2 Saturation 92 % (95-98) L 11/22/18 03:50 Calcium 8.2 mg/dL (8.6-10.3) L 11/22/18 03:10 Phosphorus 2.5 mg/dL (2.7-4.5) L 11/22/18 03:10 Magnesium 2.3 mg/dL (1.6-2.6) 11/22/18 03:10 Urine Creatinine 79 mg/dL 11/20/18 17:48 Urine Sodium 48.9 mEq/L 11/20/18 17:48 Consult Discharge Plan - Plan Referrals: Patricia Topete CNP [Primary Care Provider] - 11/29/18 9:00 am
[2018-11-22] MEDS: Budesonide/Formoterol 80/4.5 MDI IH SCH ×2 (08:38→20:30)
[2018-11-22] MEDS ORDERED: *HR* Heparin 5,000 UNIT/ML VIAL ONE (10:22)
[2018-11-22] MEDS: *HR* Acetylcysteine 20% 600 MG/3 ML ORAL SYRINGE PO SCH ×2 (11:01→22:50)
--- NOTE | 2018-11-22 12:03 | Internal Med Progress Note ---
Hospitalist Progress Note - Encounter Date of Encounter: 11/22/18 Time of Encounter: 11:00 - Subjective Interval History: Patient is a 68-year-old female with past medical history significant for O2 dependent COPD daily at bedtime and coronary arterial disease with recent left heart catheter on 10/22/18 who presents due to generalized weakness found to have acute kidney injury secondary to acute interstitial nephritis which is suspected to be contrast induced. In addition patient also with acute on chronic hypoxic respiratory failure now requiring high amounts of oxygen supplementation as she was only needing to use oxygen supplementation daily at bedtime at home - Exam Vitals: Temp Pulse Resp BP Pulse Ox 98.3 F 85 22 149/108 94 11/22/18 08:00 11/22/18 10:06 11/22/18 10:06 11/22/18 10:06 11/22/18 10:06 Exam: Gen.: Nonacute distress, alert and oriented 3 ENT: Mucosal membranes moist Respiratory: Lungs are clear to auscultation bilaterally without any wheezing rhonchi or rales Cardiovascular: Normal S1 and S2 regular rate rhythm no murmurs rubs or gallops Abdomen: Soft, nontender and nondistended with positive bowel sounds Extremities: No lower extremity edema Skin: Normal color - Assessment and Plan (1) Acute on chronic respiratory failure with hypoxia Current Visit: Yes Status: Acute Assessment and Plan: Patient with acute on chronic hypoxic respiratory failure now requiring high amounts of oxygen supplementation as she was only needing to use oxygen supplementation daily at bedtime at home CT angiogram of the chest showed no PE but multifocal airspace disease bilaterally was identified. Pulmonology was consulted and suspects secondary to patient's significant centrilobular emphysema to COPD disease compensated with pulmonary edema. Pleural effusions minimal and not enough for thoracentesis per pulmonology Pulmonology consulted for further recommendations (2) BJ (acute kidney injury) Current Visit: Yes Status: Acute Assessment and Plan: Suspect due to acute interstitial nephritis thought to be contrast-induced Renal function with improvement after dialysis SCr: 4.52->4.86->5.48->5.40->5.97->1.94 GFR: 10->9->9->8->7->26 Nephrology following and appreciate any additional recommendations. (3) Elevated troponin Current Visit: Yes Status: Acute Assessment and Plan: Patient with elevated troponins suspected to be secondary to demand ischemia per cardiology Will continue to monitor on telemetry (4) CAD (coronary artery disease) Current Visit: Yes Status: Chronic Assessment and Plan: Patient with recent left heart catheterization on 10/22/18 Continue aspirin, Plavix. (5) COPD (chronic obstructive pulmonary disease) Current Visit: Yes Status: Chronic Assessment and Plan: Pulmonology consulted and suspects patient with significant centrilobular emphysematous COPD disease Continue bronchodilators as needed. (6) HTN (hypertension) Current Visit: Yes Status: Chronic Assessment and Plan: On Amlodipine, atenolol. Will continue to monitor and adjust antihypertensive regimen. (7) Hypothyroidism Current Visit: Yes Status: Chronic Assessment and Plan: Continue levothyroxin - Time Spent with Patient Total time spent is greater than 50% in coordination of care (as documented) at patient's floor/unit and/or counseling patient: Internal Medicine: Result - Labs CBC & Chem 7: 11/22/18 03:10 11/22/18 03:10 Labs: Short CBC 11/22/18 Range/Units 03:10 WBC 12.6 H (4.3-11.1) K/mcL Hgb 8.5 L (11.5-15.4) g/dL Hct 26.1 L (35.3-44.9) % Plt Count 277 (140-400) K/mcL Neutrophils # 9.5 H (1.6-8.9) K/mcL BMP 11/22/18 03:10 Sodium 137 Potassium 4.6 Chloride 102 Carbon Dioxide 26 BUN 26 H Creatinine 1.94 H Glucose 118 H Calcium 8.2 L Liver Function 11/22/18 Range/Units 03:10 Total Bilirubin 0.5 (0.3-1.0) mg/dL Direct Bilirubin 0.1 (0.0-0.2) mg/dL AST 20 (13-39) Units/L ALT 25 (7-52) Units/L Alkaline Phosphatase 88 (34-104) Units/L Albumin 3.2 L (3.5-5.7) g/dL - ABG Interpretation ABG results: ABG ABG pH 7.37 pH Units (7.32-7.45) 11/22/18 03:50 ABG pCO2 46 mmHg (35-45) H 11/22/18 03:50 ABG pO2 65 mmHg (85-104) L 11/22/18 03:50 ABG O2 Saturation 92 % (95-98) L 11/22/18 03:50 PT/INR, D-dimer PT 12.6 Seconds (9.4-12.1) H 11/18/18 11:06 Consult Discharge Plan - Plan Referrals: Patricia Topete [employer] [Primary Care Provider] - 11/29/18 9:00 am (4) CAD (coronary artery disease) Qualifiers: Coronary Disease-Associated Artery/Lesion type: [place] artery [place] vs. transplanted heart: [place] heart Associated angina: without angina Qualified Code(s): I25.10 - Atherosclerotic heart disease of [place] coronary artery without angina pectoris (5) COPD (chronic obstructive pulmonary disease) Qualifiers: COPD type: unspecified COPD Qualified Code(s): J44.9 - Chronic obstructive pulmonary disease, unspecified (6) HTN (hypertension) Qualifiers: Hypertension type: essential hypertension Qualified Code(s): I10 - Essential (primary) hypertension (7) Hypothyroidism Qualifiers: Hypothyroidism type: unspecified Qualified Code(s): E03.9 - Hypothyroidism, unspecified
[2018-11-22] MEDS ORDERED: methylPREDNISolone 125 MG/2 ML VIAL IVP ONE (13:02)
[2018-11-22] MEDS ORDERED: Dexmedetomidine HCl 400 MCG/100 ML MLS IVC ONE (13:05)
[2018-11-22] MEDS ORDERED: methylPREDNISolone 125 MG/2 ML VIAL ONE (13:12)
[2018-11-22] MEDS ORDERED: Furosemide 40 MG/4 ML VIAL ONE (13:16)
[2018-11-22 13:25] LABS: ABG Base Excess 2 mEq/L (-2 to 3); ABG HCO3 26 mEq/L (21-27); ABG Oxygen Saturation 79 % (95-98); ABG PCO2 37 mmHg (35-45); ABG PH 7.45 pH Units (7.32-7.45); ABG PO2 41 mmHg (85-104); ABG TCO2 27 mEq/L (20-26); Blood Gas Pressure Support 8 cm H2O; Blood Gas Respiration Rate 8
--- NOTE | 2018-11-22 13:26 | Pulmonology Progress Note ---
<Thanh Stoll - Last Filed: 11/22/18 13:57> Date of Encounter: 11/22/18 Time of Encounter: 13:24 Assessment and Plan (1) Acute on chronic respiratory failure with hypoxia Current Visit: Yes Status: Acute Patient had acute worsening of her respiratory status while in the ICU. Patient had previously been on high flow oxygen however her respiratory status acutely worsened requiring transition of the patient's respiratory support. Patient required BiPAP. This is likely secondary to pulmonary edema. An EKG, troponin, BNP will be obtained. This concerned that the worsening respiratory status could be due to pulmonary edema. The patient will be started on a nitro drip to assist with the patient's respiratory status. This will be continued the blood pressure is tolerating the nitroglycerin. (2) Acute kidney injury superimposed on chronic kidney disease Current Visit: Yes Status: Acute Patient had worsening of her baseline renal function requiring CVVHDF. The patient is being followed by nephrology. Patient's creatinine is 1.94. GFR 26. (3) CAD (coronary artery disease) Current Visit: Yes Status: Chronic Patient has a history of coronary artery disease cardiac catheterization on 10/21/18 with a drug-eluting stent that is in place. Patient is currently on Plavix and aspirin. Patient did have a echocardiogram on 11/14/18. Impression listed below. Impressions: LVEF 55%. Mild LV segmental wall motion abnormalities. When visually compared to Echo 05/23/2018, SWMA are not new. Normal LV chamber size, wall thickness and function. Normal right ventricular structure and function. Qualifiers: Coronary Disease-Associated Artery/Lesion type: [place] artery [place] vs. transplanted heart: [place] heart Associated angina: without angina Qualified Code(s): I25.10 - Atherosclerotic heart disease of [place] coronary artery without angina pectoris (4) Elevated troponin Current Visit: Yes Status: Acute Patient elevated troponin of 0.08. This was on 11/19/18. A repeat troponin was ordered today. (5) COPD (chronic obstructive pulmonary disease) Current Visit: Yes Status: Chronic Patient is a history of COPD he was complicated by pulmonary edema. Patient is currently on BiPAP. Patient has a DuoNeb breathing treatment ordered. Patient was given 125 Solu-Medrol today. Qualifiers: COPD type: unspecified COPD Qualified Code(s): J44.9 - Chronic obstructive pulmonary disease, unspecified (6) Hypothyroidism Current Visit: Yes Status: Chronic Continue with her levothyroxine. Qualifiers: Hypothyroidism type: unspecified Qualified Code(s): E03.9 - Hypothyroidism, unspecified (7) DVT prophylaxis Current Visit: Yes Status: Chronic Patient is on subcutaneous heparin for DVT prophylaxis. Subjective Principal diagnosis: BJ on CKD, mild trop Interval history: This afternoon the patient was in the ICU and had acute shortness of breath and anxiety. There is concern for potential pulmonary edema. Patient was placed on BiPAP and her respiratory status did not improve some. We will obtain a EKG, troponin, BNP and we will panculture. Objective PUL Vital signs: Last Vital Signs Temp 100.1 F H 11/22/18 12:00 Pulse 87 11/22/18 12:00 Resp 20 11/22/18 12:00 BP 131/64 11/22/18 12:00 Pulse Ox 94 11/22/18 12:00 General appearance: appears uncomfortable, other (Bipap on at the time of exam ) Eyes: nonicteric Neck: supple Effort: other (Labored breathing with BiPAP assistance.) Auscultation: bilateral: other (Course breath sounds bilaterally) Cardiovascular: regular rate and rhythm Gastrointestinal: normoactive bowel sounds, soft, non-tender, non-distended Extremities: no cyanosis, pink and warm, edema (Trace edema to bilateral lower extremities) Musculoskeletal: no deformities non-focal exam, other (Patient moves all 4 extremities. Responsive follows commands.) anxious Results - Laboratory Findings CBC and BMP: 11/22/18 03:10 11/22/18 03:10 ABG ABG pH 7.37 pH Units (7.32-7.45) 11/22/18 03:50 ABG pCO2 46 mmHg (35-45) H 11/22/18 03:50 ABG pO2 65 mmHg (85-104) L 11/22/18 03:50 ABG O2 Saturation 92 % (95-98) L 11/22/18 03:50 PT/INR, D-dimer PT 12.6 Seconds (9.4-12.1) H 11/18/18 11:06 Abnormal lab findings: Abnormal lab results WBC 12.6 K/mcL (4.3-11.1) H 11/22/18 03:10 RBC 3.13 M/mcL (3.82-4.97) L 11/22/18 03:10 Hgb 8.5 g/dL (11.5-15.4) L 11/22/18 03:10 Hct 26.1 % (35.3-44.9) L 11/22/18 03:10 MCH 27.2 pg (28.0-33.3) L 11/22/18 03:10 Neutrophils # 9.5 K/mcL (1.6-8.9) H 11/22/18 03:10 PT 12.6 Seconds (9.4-12.1) H 11/18/18 11:06 ABG pCO2 46 mmHg (35-45) H 11/22/18 03:50 ABG pO2 65 mmHg (85-104) L 11/22/18 03:50 ABG Total CO2 28 mEq/L (20-26) H 11/22/18 03:50 ABG O2 Saturation 92 % (95-98) L 11/22/18 03:50 BUN 26 mg/dL (8-23) H 11/22/18 03:10 Creatinine 1.94 mg/dL (0.60-1.20) H 11/22/18 03:10 Est GFR ( Amer) 31 (> 60) L 11/22/18 03:10 Est GFR (Non-Af Amer) 26 (> 60) L 11/22/18 03:10 Glucose 118 mg/dL (70-105) H 11/22/18 03:10 Calcium 8.2 mg/dL (8.6-10.3) L 11/22/18 03:10 Phosphorus 2.5 mg/dL (2.7-4.5) L 11/22/18 03:10 Iron 14 mcg/dL (50-170) L 11/17/18 06:17 % Saturation 5 % (15-50) L 11/17/18 06:17 Ferritin 202 ng/mL (10-120) H 11/17/18 06:17 Troponin I 0.08 ng/mL (< 0.04) H* 11/19/18 06:40 B-Natriuretic Peptide 997 pg/mL (Less than 100) H 11/20/18 12:40 Serum Total Protein 5.9 g/dL (6.4-8.9) L 11/22/18 03:10 Albumin 3.2 g/dL (3.5-5.7) L 11/22/18 03:10 Vitamin B12 > 1500 pg/mL (250-1100) H 11/17/18 06:17 Folate > 22.3 ng/mL (3.0-16.0) H 11/17/18 06:17 TSH 8.042 mcIU/mL (0.340-5.600) H 11/14/18 10:24 Total T3 0.54 ng/mL (0.87-1.78) L 11/15/18 03:22 Urine Protein 30 mg/dL (Neg-Trace) H 11/14/18 10:13 Ur Squamous Epith Cells Many per lpf (None-Few) H 11/14/18 10:13 Hep Bs Antibody 3.49 mIU/mL (10.00-) L 11/19/18 07:36 - Clinical Findings Intake & Output: Intake & Output 11/21/18 11/22/18 11/22/18 23:59 07:59 15:59 Intake Total 100 / 100 50 / 50 Output Total 56 / 56 388 / 388 87 / 87 Balance 44 / 44 -338 / -338 -87 / -87 Weight 65.1 kg 65.1 kg 65.1 kg Consult Discharge Plan - Plan Referrals: Efrem,Patricia Dick CNP [Primary Care Provider] - 11/29/18 9:00 am <Bakari Solano W - Last Filed: 11/22/18 15:43> Date of Encounter: 11/22/18 Objective PUL Vital signs: Last Vital Signs Temp 100.1 F H 11/22/18 12:00 Pulse 69 11/22/18 15:00 Resp 23 11/22/18 15:00 BP 130/74 11/22/18 15:00 Pulse Ox 90 11/22/18 15:00 Results - Laboratory Findings CBC and BMP: 11/22/18 03:10 11/22/18 03:10 ABG ABG pH 7.45 pH Units (7.32-7.45) 11/22/18 13:19 ABG pCO2 37 mmHg (35-45) 11/22/18 13:19 ABG pO2 41 mmHg (85-104) L* 11/22/18 13:19 ABG O2 Saturation 79 % (95-98) L 11/22/18 13:19 PT/INR, D-dimer PT 12.6 Seconds (9.4-12.1) H 11/18/18 11:06 Abnormal lab findings: Abnormal lab results WBC 12.6 K/mcL (4.3-11.1) H 11/22/18 03:10 RBC 3.13 M/mcL (3.82-4.97) L 11/22/18 03:10 Hgb 8.5 g/dL (11.5-15.4) L 11/22/18 03:10 Hct 26.1 % (35.3-44.9) L 11/22/18 03:10 MCH 27.2 pg (28.0-33.3) L 11/22/18 03:10 Neutrophils # 9.5 K/mcL (1.6-8.9) H 11/22/18 03:10 PT 12.6 Seconds (9.4-12.1) H 11/18/18 11:06 ABG pO2 41 mmHg (85-104) L* 11/22/18 13:19 ABG Total CO2 27 mEq/L (20-26) H 11/22/18 13:19 ABG O2 Saturation 79 % (95-98) L 11/22/18 13:19 BUN 26 mg/dL (8-23) H 11/22/18 03:10 Creatinine 1.94 mg/dL (0.60-1.20) H 11/22/18 03:10 Est GFR ( Amer) 31 (> 60) L 11/22/18 03:10 Est GFR (Non-Af Amer) 26 (> 60) L 11/22/18 03:10 Glucose 118 mg/dL (70-105) H 11/22/18 03:10 Calcium 8.2 mg/dL (8.6-10.3) L 11/22/18 03:10 Phosphorus 2.5 mg/dL (2.7-4.5) L 11/22/18 03:10 Iron 14 mcg/dL (50-170) L 11/17/18 06:17 % Saturation 5 % (15-50) L 11/17/18 06:17 Ferritin 202 ng/mL (10-120) H 11/17/18 06:17 B-Natriuretic Peptide 1435 pg/mL (Less than 100) H 11/22/18 13:49 Serum Total Protein 5.9 g/dL (6.4-8.9) L 11/22/18 03:10 Albumin 3.2 g/dL (3.5-5.7) L 11/22/18 03:10 Vitamin B12 > 1500 pg/mL (250-1100) H 11/17/18 06:17 Folate > 22.3 ng/mL (3.0-16.0) H 11/17/18 06:17 TSH 8.042 mcIU/mL (0.340-5.600) H 11/14/18 10:24 Total T3 0.54 ng/mL (0.87-1.78) L 11/15/18 03:22 Urine Protein 30 mg/dL (Neg-Trace) H 11/14/18 10:13 Ur Squamous Epith Cells Many per lpf (None-Few) H 11/14/18 10:13 Hep Bs Antibody 3.49 mIU/mL (10.00-) L 11/19/18 07:36 - Microbiology Findings Microbiology Findings: Microbiology, Last 48 Hours 11/22/18 13:46 Blood Culture - Preliminary Peripheral Venipuncture Culture is incubating and being continuously monitored for growth. Final report to follow. 11/22/18 13:49 Blood Culture - Preliminary Peripheral Venipuncture Culture is incubating and being continuously monitored for growth. Final report to follow. - Clinical Findings Intake & Output: Intake & Output 11/21/18 11/22/18 11/22/18 23:59 07:59 15:59 Intake Total 100 / 100 50 / 50 Output Total 56 / 56 388 / 388 / Balance 44 / 44 -338 / -338 - / -87 Weight 65.1 kg 65.1 kg 65.1 kg - Attending Attestation I examined this patient and my medical decision-making was reviewed with the Resident Physician. I agree with the documented findings, disposition and treatment plan as described except to the extent set forth below. We independently had [id number] contact with the patient I spent 33min of Critical Care time with this patient. It involved decision making of high complexity to assess, manipulate, and support vital organ system failure and/or to prevent further life threatening deterioration of the patient's condition. The time involved in the performance of separately reportable procedures was not counted toward critical care time. Patient seen and examined at bedside Labs, radiology, chart personally reviewed. PRINTING MECHANIST: Patient is very anxious needs to be started on Precedex to improve respiratory mechanics no gross focal neurological deficits Pulm: Hypoxic respiratory failure secondary to cardiogenic pulmonary edema requiring noninvasive ventilation high risk for further deterioration requiring endotracheal intubation daily monitoring the ICU she has a COPD with likely exacerbation cannot exclude an pneumonia at this time we will continue to monitor this very closely Cards: Suspected cardiogenic pulmonary edema history of coronary disease status post recent stenting checking ECG and troponin I have spoken directly with her ag service manager start nitroglycerin infusion; optimize blood pressure control GI: Nothing by mouth for now Renal: [place] I likely secondary to contrast-induced nephropathy had undergone Daniella for the last 24 hours and hours off may need intermittent HD and or possible ultrafiltration nephrology following UOP Monitored, Cont to Trend sCr and monitor Electrolytes. ID: Leukocytosis unclear if this is stress related or infectious cultures will be obtained have a low threshold for initiation of antimicrobials Heme/Onc: DVT prophylaxis given Endo: Glucose Monitored Integ/MSK: Skin Care per routine ICU Nursing Protocol to prevent ulcers. Lines: All lines examined without evidence of infection : Dispo: Remain in ICU for critical illness CODE: Full.
[2018-11-22] MEDS ORDERED: Nitroglycerin 25 MG/250 ML INFUS..BTL IVC SCH (14:00)
[2018-11-22] MEDS ORDERED: *HR* LORazepam 2 MG/ML VIAL IVP PRN (14:20)
[2018-11-23] MEDS: Ipratropium/Albuterol Neb 3 ML IH SCH ×7 (00:18→23:10)
[2018-11-23] MEDS: *HR* Heparin 5,000 UNIT/ML VIAL SQ SCH ×3 (07:12→23:31)
[2018-11-23 07:39] LABS: Calcium 8.6 mg/dL (8.6-10.3)
--- NOTE | 2018-11-23 08:26 | Pulmonology Progress Note ---
<Thanh Stoll - Last Filed: 11/23/18 11:12> Date of Encounter: 11/23/18 Time of Encounter: 08:26 Assessment and Plan (1) Acute on chronic respiratory failure with hypoxia Current Visit: Yes Status: Acute The patient prefers has continued to improve throughout the night and was able to come off the BiPAP. Patient tolerated the nitroglycerin well. Patient's breathing is significantly improved. Patient was started on Imdur. Due the laurel rangel's transfer status continued to improve until is appropriate for the patient be transferred out to a telemetry floor. Patient was accepted by Dr. Arguelles (2) Acute kidney injury superimposed on chronic kidney disease Current Visit: Yes Status: Acute Patient had worsening of her baseline renal function requiring dialysis. Her kidney function today was a creatinine of 2.7 with a GFR of 17. Nephrology is following the patient is recommended that she have HD today. Patient does have anxiety when she receives dialysis. Patient does have a when necessary Ativan dose ordered. (3) CAD (coronary artery disease) Current Visit: Yes Status: Chronic Patient has a history of coronary artery disease cardiac catheterization on 10/21/18 with a drug-eluting stent that is in place. Patient is currently on Plavix and aspirin. Patient did have a echocardiogram on 11/14/18. Troponin was 0.03 on 11/22/18. Impression listed below. Impressions: LVEF 55%. Mild LV segmental wall motion abnormalities. When visually compared to Echo 05/23/2018, SWMA are not new. Normal LV chamber size, wall thickness and function. Normal right ventricular structure and function. Qualifiers: Coronary Disease-Associated Artery/Lesion type: [place] artery [place] vs. transplanted heart: [place] heart Associated angina: without angina Qualified Code(s): I25.10 - Atherosclerotic heart disease of [place] coronary artery without angina pectoris (4) Elevated troponin Current Visit: Yes Status: Acute Patient elevated troponin of 0.08. This was on 11/19/18. Troponin was 0.03 on 11/22/18. (5) COPD (chronic obstructive pulmonary disease) Current Visit: Yes Status: Chronic Patient is a history of COPD he was complicated by pulmonary edema. Patient had been on the nitro drip overnight and seems like her respiratory status is significantly improved. Is no longer requiring BiPAP. Qualifiers: COPD type: unspecified COPD Qualified Code(s): J44.9 - Chronic obstructive pulmonary disease, unspecified (6) Hypothyroidism Current Visit: Yes Status: Chronic Continue with her levothyroxine. Qualifiers: Hypothyroidism type: unspecified Qualified Code(s): E03.9 - Hypothyroidism, unspecified (7) DVT prophylaxis Current Visit: Yes Status: Chronic Patient is on subcutaneous heparin for DVT prophylaxis. Subjective Principal diagnosis: BJ on CKD, mild trop Interval history: There are no acute events reported overnight. The patient respiratory status improved was able to remove from BiPAP. The patient stated that she is feeling much better this morning. Objective PUL Vital signs: Last Vital Signs Temp 98.7 F 11/23/18 07:40 Pulse 92 11/23/18 07:00 Resp 21 11/23/18 07:00 BP 120/81 11/23/18 07:00 Pulse Ox 93 11/23/18 07:00 General appearance: no acute distress, alert Eyes: nonicteric ENT: oropharynx moist Neck: supple Effort: mildly labored Auscultation: bilateral: other (Coarse breath sounds ) Cardiovascular: regular rate and rhythm Gastrointestinal: normoactive bowel sounds, soft, non-tender Extremities: edema Musculoskeletal: no deformities normal mental status, non-focal exam mood appropriate, affect normal Results - Laboratory Findings CBC and BMP: 11/23/18 04:26 11/23/18 04:20 ABG ABG pH 7.45 pH Units (7.32-7.45) 11/22/18 13:19 ABG pCO2 37 mmHg (35-45) 11/22/18 13:19 ABG pO2 41 mmHg (85-104) L* 11/22/18 13:19 ABG O2 Saturation 79 % (95-98) L 11/22/18 13:19 PT/INR, D-dimer PT 12.6 Seconds (9.4-12.1) H 11/18/18 11:06 Abnormal lab findings: Abnormal lab results WBC 12.6 K/mcL (4.3-11.1) H 11/22/18 03:10 RBC 3.13 M/mcL (3.82-4.97) L 11/22/18 03:10 Hgb 8.5 g/dL (11.5-15.4) L 11/22/18 03:10 Hct 26.1 % (35.3-44.9) L 11/22/18 03:10 MCV 82.4 fL (83.0-100.0) L 11/21/18 05:55 MCH 27.2 pg (28.0-33.3) L 11/22/18 03:10 MCHC 31.5 g/dL (31.6-35.5) L 11/14/18 10:24 RDW 14.6 % (11.5-14.5) H 11/15/18 03:22 9.5 K/mcL (1.6-8.9) H 11/22/18 03:10 1.4 K/mcL (0.0-0.6) H 11/19/18 06:40 PT 12.6 Seconds (9.4-12.1) H 11/18/18 11:06 ABG pCO2 46 mmHg (35-45) H 11/22/18 03:50 ABG pO2 41 mmHg (85-104) L* 11/22/18 13:19 ABG Total CO2 27 mEq/L (20-26) H 11/22/18 13:19 ABG O2 Saturation 79 % (95-98) L 11/22/18 13:19 ABG Base Excess -4 mEq/L (-2 to 3) L 11/19/18 17:00 Sodium 133 mEq/L (136-145) L 11/21/18 05:55 Carbon Dioxide 21 mEq/L (23-29) L 11/23/18 04:20 BUN 39 mg/dL (8-23) H 11/23/18 04:20 2.78 mg/dL (0.60-1.20) H 11/23/18 04:20 Est GFR ( Amer) 20 (> 60) L 11/23/18 04:20 Est GFR (Non-Af Amer) 17 (> 60) L 11/23/18 04:20 Glucose 143 mg/dL (70-105) H 11/23/18 04:20 POC Glucose 138 mg/dL (70-99) H 11/22/18 22:53 301 (280-300) H 11/21/18 05:55 Calcium 8.2 mg/dL (8.6-10.3) L 11/22/18 03:10 Phosphorus 2.5 mg/dL (2.7-4.5) L 11/22/18 03:10 Magnesium 1.5 mg/dL (1.6-2.6) L 11/15/18 03:22 Iron 14 mcg/dL (50-170) L 11/17/18 06:17 % Saturation 5 % (15-50) L 11/17/18 06:17 202 ng/mL (10-120) H 11/17/18 06:17 0.08 ng/mL (< 0.04) H* 11/19/18 06:40 B-Natriuretic Peptide 1435 pg/mL (Less than 100) H 11/22/18 13:49 5.9 g/dL (6.4-8.9) L 11/22/18 03:10 3.2 g/dL (3.5-5.7) L 11/22/18 03:10 Vitamin B12 > 1500 pg/mL (250-1100) H 11/17/18 06:17 > 22.3 ng/mL (3.0-16.0) H 11/17/18 06:17 TSH 8.042 mcIU/mL (0.340-5.600) H 11/14/18 10:24 Total T3 0.54 ng/mL (0.87-1.78) L 11/15/18 03:22 30 mg/dL (Neg-Trace) H 11/14/18 10:13 Ur Squamous Epith Cells Many per lpf (None-Few) H 11/14/18 10:13 Hep Bs Antibody 3.49 mIU/mL (10.00-) L 11/19/18 07:36 - Microbiology Findings Microbiology Findings: Microbiology, Last 48 Hours 11/22/18 13:46 Blood Culture - Preliminary Peripheral Venipuncture Culture is incubating and being continuously monitored for growth. Final report to follow. 11/22/18 13:49 Blood Culture - Preliminary Peripheral Venipuncture Culture is incubating and being continuously monitored for growth. Final report to follow. - Clinical Findings Intake & Output: Intake & Output 11/22/18 11/23/18 11/23/18 23:59 07:59 15:59 Output Total 0 / 475 100 / 100 Balance 0 / -425 -100 / -100 Weight 64.9 kg Consult Discharge Plan - Plan Referrals: Patricia Topete CNP [Primary Care Provider] - 11/29/18 9:00 am <RussBakari W - Last Filed: 11/23/18 13:52> Date of Encounter: 11/23/18 Objective PUL Vital signs: Last Vital Signs Temp 99.1 F 11/23/18 12:47 Pulse 85 11/23/18 13:00 Resp 19 11/23/18 13:00 BP 119/93 11/23/18 13:00 Pulse Ox 92 11/23/18 13:00 Results - Laboratory Findings CBC and BMP: 11/23/18 04:26 11/23/18 04:20 ABG ABG pH 7.45 pH Units (7.32-7.45) 11/22/18 13:19 ABG pCO2 37 mmHg (35-45) 11/22/18 13:19 ABG pO2 41 mmHg (85-104) L* 11/22/18 13:19 ABG O2 Saturation 79 % (95-98) L 11/22/18 13:19 PT/INR, D-dimer PT 12.6 Seconds (9.4-12.1) H 11/18/18 11:06 Abnormal lab findings: Abnormal lab results WBC 12.6 K/mcL (4.3-11.1) H 11/22/18 03:10 RBC 2.70 M/mcL (3.82-4.97) L 11/23/18 04:26 Hgb 7.4 g/dL (11.5-15.4) L 11/23/18 04:26 Hct 22.9 % (35.3-44.9) L 11/23/18 04:26 MCV 82.4 fL (83.0-100.0) L 11/21/18 05:55 MCH 27.4 pg (28.0-33.3) L 11/23/18 04:26 MCHC 31.5 g/dL (31.6-35.5) L 11/14/18 10:24 RDW 14.9 % (11.5-14.5) H 11/23/18 04:26 9.5 K/mcL (1.6-8.9) H 11/22/18 03:10 1.4 K/mcL (0.0-0.6) H 11/19/18 06:40 PT 12.6 Seconds (9.4-12.1) H 11/18/18 11:06 ABG pCO2 46 mmHg (35-45) H 11/22/18 03:50 ABG pO2 41 mmHg (85-104) L* 11/22/18 13:19 ABG Total CO2 27 mEq/L (20-26) H 11/22/18 13:19 ABG O2 Saturation 79 % (95-98) L 11/22/18 13:19 ABG Base Excess -4 mEq/L (-2 to 3) L 11/19/18 17:00 Sodium 133 mEq/L (136-145) L 11/21/18 05:55 Carbon Dioxide 21 mEq/L (23-29) L 11/23/18 04:20 BUN 39 mg/dL (8-23) H 11/23/18 04:20 2.78 mg/dL (0.60-1.20) H 11/23/18 04:20 Est GFR ( Amer) 20 (> 60) L 11/23/18 04:20 Est GFR (Non-Af Amer) 17 (> 60) L 11/23/18 04:20 Glucose 143 mg/dL (70-105) H 11/23/18 04:20 POC Glucose 138 mg/dL (70-99) H 11/22/18 22:53 301 (280-300) H 11/21/18 05:55 Calcium 8.2 mg/dL (8.6-10.3) L 11/22/18 03:10 Phosphorus 2.5 mg/dL (2.7-4.5) L 11/22/18 03:10 Magnesium 1.5 mg/dL (1.6-2.6) L 11/15/18 03:22 Iron 14 mcg/dL (50-170) L 11/17/18 06:17 % Saturation 5 % (15-50) L 11/17/18 06:17 202 ng/mL (10-120) H 11/17/18 06:17 0.08 ng/mL (< 0.04) H* 11/19/18 06:40 B-Natriuretic Peptide 1435 pg/mL (Less than 100) H 11/22/18 13:49 5.9 g/dL (6.4-8.9) L 11/22/18 03:10 3.2 g/dL (3.5-5.7) L 11/22/18 03:10 Vitamin B12 > 1500 pg/mL (250-1100) H 11/17/18 06:17 > 22.3 ng/mL (3.0-16.0) H 11/17/18 06:17 TSH 8.042 mcIU/mL (0.340-5.600) H 11/14/18 10:24 Total T3 0.54 ng/mL (0.87-1.78) L 11/15/18 03:22 30 mg/dL (Neg-Trace) H 11/14/18 10:13 Ur Squamous Epith Cells Many per lpf (None-Few) H 11/14/18 10:13 Hep Bs Antibody 3.49 mIU/mL (10.00-) L 11/19/18 07:36 - Microbiology Findings Microbiology Findings: Microbiology, Last 48 Hours 11/22/18 13:46 Blood Culture - Preliminary Peripheral Venipuncture Culture is incubating and being continuously monitored for growth. Final report to follow. 11/22/18 13:49 Blood Culture - Preliminary Peripheral Venipuncture Culture is incubating and being continuously monitored for growth. Final report to follow. - Clinical Findings Intake & Output: Intake & Output 11/22/18 11/23/18 11/23/18 23:59 07:59 15:59 Output Total 0 / 475 100 / 150 50 / 150 Balance 0 / -425 -100 / -150 -50 / -150 Weight 64.9 kg - Attending Attestation I examined this patient and my medical decision-making was reviewed with the Resident Physician. I agree with the documented findings, disposition and treatment plan as described except to the extent set forth below. We ind ependently had [id number] contact with the patient Patient seen and examined at bedside Labs, radiology, chart personally reviewed. Management was reviewed during multidisciplinary critical care rounds. ACCOUNT UNDERWRITER: Awake and alert agitation better control today Pulm: Toxic respiratory failure is resolving she has underlying COPD suspected to her frequent hypoxic events are related to hydrostatic pulmonary edema - BiPAP as needed outpatient follow-up in pulmonary clinic Cards: Presenting pulmonary edema improving continue diuresis and the dialysis optimize blood pressure add LA nitrate stopped nitroglycerin infusion GI: Continue to monitor Nutrition: Diet as tolerated Renal: AK I stable nephrology following we will plan for volume removal today UOP Monitored, Cont to Trend sCr and monitor Electrolytes. ID: No clear evidence of infection continue to monitor Heme/Onc: DVT prophylaxis given Endo: Glucose Monitored Integ/MSK: Skin Care per routine ICU Nursing Protocol to prevent ulcers. Lines: All lines examined without evidence of infection : Dispo: Stable for transfer to [facility] telemetry for ongoing care CODE: Full
--- NOTE | 2018-11-23 08:43 | Nephrology Progress Note ---
Date of Encounter: 11/23/18 Time of Encounter: 09:20 - Assessment and Plan (1) Acute kidney injury superimposed on chronic kidney disease Current Visit: Yes Status: Acute Hemodynamically to robust to need CVVHDF, so this was stopped. In terms of her pulmonary edema and concern for fluid overload, I do recommend further MANUFACTURING WEAVER today, and I'll order standard HD. The pt's mentioned to me yesterday that she tends to develop panic attacks and I hopes to be present for HD sessions, which I agree and could help reorient the pt to minimize her panic/distress during standard HD (which was a reported problem during prior dialysis sessions). As always, I recommend renal dosing, strict I/Os, daily weights and avoidance of Nephrotoxins as able. Thank you. (2) COPD exacerbation Current Visit: No Status: Acute (3) CAD (coronary artery disease) Current Visit: Yes Status: Chronic Qualifiers: Coronary Disease-Associated Artery/Lesion type: [place] artery [place] vs. transplanted heart: [place] heart Associated angina: without angina Qualified Code(s): I25.10 - Atherosclerotic heart disease of [place] coronary artery without angina pectoris (4) HTN (hypertension) Current Visit: Yes Status: Chronic Qualifiers: Hypertension type: essential hypertension Qualified Code(s): I10 - Essential (primary) hypertension (5) Pleural effusion Current Visit: Yes Status: Acute (6) Abnormal CT of the chest Current Visit: Yes Status: Acute that demonstrated a left renal lesion, which will need further follow up when the pt is stable. Subjective Principal diagnosis: BJ on CKD, mild trop Interval history: The patient was seen and examined. She was seen in the ICU. No family was present at the bedside during my interview and exam this morning. She affirmed having anxiety. I discussed with the ICU team about helping her with her anxiety during dialysis, and they reported she already has a benzodiazepine available prn. The patient did not affirm nausea, vomiting, or diminished appetite. Objective - Vital Signs Vital signs: Vital Signs Temp Pulse Resp BP Pulse Ox 11/23/18 07:40 98.7 F 11/23/18 07:00 98.7 F 92 21 120/81 93 11/23/18 01:51 79 14 133/78 99 11/23/18 01:00 72 15 103/59 99 11/23/18 00:18 16 119/62 100 11/22/18 23:49 97 F L 11/22/18 23:40 75 16 126/73 100 11/22/18 22:43 76 11/22/18 22:40 76 15 159/89 99 11/22/18 20:34 16 100 11/22/18 20:32 98.3 F 11/22/18 18:11 70 20 109/65 100 11/22/18 17:17 23 126/81 100 11/22/18 17:00 67 22 126/81 100 11/22/18 16:00 99.0 F 69 22 125/82 100 11/22/18 15:00 69 23 130/74 100 11/22/18 14:00 73 24 145/99 100 11/22/18 13:10 31 130/89 96 11/22/18 13:00 79 24 130/89 99 11/22/18 12:51 28 83 11/22/18 12:00 100.1 F H 87 20 131/64 94 11/22/18 11:00 87 20 136/82 94 11/22/18 10:06 85 22 149/108 94 11/22/18 09:00 84 16 129/108 95 Intake and Output 11/22/18 11/23/18 11/23/18 23:59 07:59 15:59 Output Total 0 / 475 100 / 100 Balance 0 / -425 -100 / -100 Output: Urine 0 / 0 Catheter 0 / 419 100 / 100 Other: Weight 64.9 kg Blood Glucose* 138 - General Appearance General appearance: Present: well-developed, well-nourished, appears started age, anxious EENT: Present: ATNC, PERRL, mucous membranes moist Neck: Present: supple Respiratory: Present: clear Cardiology: Present: no edema, regular rate, regular rhythm Dialysis Vascular Access: Venous Catheter (Right IJ temporary HD catheter, the dressing was C/D/I) Gastrointestinal: Present: normoactive bowel sounds, no tenderness Integumentary: Present: warm and dry Neurologic: Present: no focal deficit, alert and oriented x3 Musculoskeletal: Present: no cyanosis, no clubbing Psychiatric: Present: cooperative - Lab 11/23/18 04:26 11/23/18 04:20 Most recent lab results ABG pH 7.45 pH Units (7.32-7.45) 11/22/18 13:19 ABG pCO2 37 mmHg (35-45) 11/22/18 13:19 ABG pO2 41 mmHg (85-104) L* 11/22/18 13:19 ABG HCO3 26 mEq/L (21-27) 11/22/18 13:19 ABG O2 Saturation 79 % (95-98) L 11/22/18 13:19 Calcium 8.6 mg/dL (8.6-10.3) 11/23/18 04:20 Phosphorus 2.5 mg/dL (2.7-4.5) L 11/22/18 03:10 Magnesium 2.3 mg/dL (1.6-2.6) 11/22/18 03:10 79 mg/dL 11/20/18 17:48 48.9 mEq/L 11/20/18 17:48 Consult Discharge Plan - Plan Referrals: Patricia Topete CNP [Primary Care Provider] - 11/29/18 9:00 am
[2018-11-23] MEDS ORDERED: 0.9 % Sodium Chloride 250 ML IVC PRN ×2 (08:44→17:08)
[2018-11-23 08:47] LABS: CKMB Percent NOT DONE (0.0-5.0)
[2018-11-23 08:50] LABS: Hematocrit 22.9 % (35.3-44.9); Hemoglobin 7.4 g/dL (11.5-15.4); Mean Corpuscular HGB Conc 32.3 g/dL (31.6-35.5); Mean Corpuscular Hemoglobin 27.4 pg (28.0-33.3); Mean Corpuscular Volume 84.8 fL (83.0-100.0); Mean Platelet Volume 10.2 fL (9.4-12.4); Platelet Count 266 K/mcL (140-400); Red Cell Distribution Width 14.9 % (11.5-14.5)
[2018-11-23] MEDS ORDERED: Isosorbide MONOnitrate (24 HR) 30 MG TAB.ER.24H PO SCH (09:00)
[2018-11-23] MEDS ORDERED: *HR* Dextrose 50 % in Water (Syg) 50 ML SYRINGE IVP PRN ×2 (10:23→17:08)
[2018-11-23] MEDS ORDERED: D5% in Water 1,000 ML IVC PRN ×2 (10:23→17:08)
[2018-11-23] MEDS ORDERED: Dextrose Gel 15 GM/37.5 ML TUBE PO PRN ×4 (10:23→17:08)
[2018-11-23] MEDS: amLODIPine 5 MG TABLET PO SCH (10:56)
[2018-11-23] MEDS: Aspirin Enteric Coated 81 MG Tablet PO SCH (10:56)
[2018-11-23] MEDS: Budesonide/Formoterol 80/4.5 MDI IH SCH ×2 (11:13→19:48)
[2018-11-23] MEDS: Insulin LISPRO 300 UNITS/3 ML VIAL SQ SCH ×3 (11:56→21:43)
[2018-11-23] MEDS: Nitroglycerin 0.2 MG PATCH.TD24 TD SCH (13:44)
[2018-11-23] MEDS ORDERED: 0.9 % Sodium Chloride 2,000 ML ONE (14:45)
--- NOTE | 2018-11-23 14:55 | Internal Med Progress Note ---
Hospitalist Progress Note - Encounter Date of Encounter: 11/23/18 Time of Encounter: 13:00 - Subjective Interval History: Patient is a 68-year-old female with past medical history significant for O2 dependent COPD daily at bedtime and coronary arterial disease with recent left heart catheter on 10/22/18 who presents due to generalized weakness found to have acute kidney injury secondary to acute interstitial nephritis which is suspected to be contrast induced. Patient also with acute on chronic hypoxic respiratory failure now requiring high amounts of oxygen supplementation as she was only needing to use oxygen supplementation daily at bedtime at home. Patient was transferred to the ICU for Daniella no compelling indication to continue going for per nephrology; patient scheduled for hemodialysis today Patients respiratory status worsened yesterday requiring BiPAP is thought to be secondary to pulmonary edema. Patient no longer requiring BiPAP this morning but still requiring high amounts of O2 supplementation - Exam Vitals: Temp Pulse Resp BP Pulse Ox 99.1 F 85 19 119/93 92 11/23/18 12:47 11/23/18 13:00 11/23/18 13:00 11/23/18 13:00 11/23/18 13:00 Exam: Gen.: Nonacute distress, alert and oriented 3 ENT: Mucosal membranes moist Respiratory: Lungs are clear to auscultation bilaterally without any wheezing rhonchi or rales Cardiovascular: Normal S1 and S2 regular rate rhythm no murmurs rubs or gallops Abdomen: Soft, nontender and nondistended with positive bowel sounds Extremities: No lower extremity edema Skin: Normal color - Assessment and Plan (1) Acute on chronic respiratory failure with hypoxia Current Visit: Yes Status: Acute Assessment and Plan: Patient with acute on chronic hypoxic respiratory failure now requiring high amounts of oxygen supplementation as she was only needing to use oxygen supplementation daily at bedtime at home CT angiogram of the chest showed no PE but multifocal airspace disease bilaterally was identified. Pulmonology was consulted and suspects secondary to patient's significant centrilobular emphysema to COPD disease compensated with pulmonary edema. Pleural effusions minimal and not enough for thoracentesis per pulmonology Patients respiratory status worsened yesterday (11/22/18) requiring BiPAP is thought to be secondary to pulmonary edema. Patient no longer requiring BiPAP this morning but still requiring high amounts of O2 supplementation Pulmonology for further recommendations (2) COPD (chronic obstructive pulmonary disease) Current Visit: Yes Status: Chronic Assessment and Plan: Pulmonology consulted and suspects patient with significant centrilobular emphysematous COPD disease Patient was placed on nitro drip overnight per pulmonology recommendations and patient's symptoms improved Continue bronchodilators as needed. (3) Acute kidney injury superimposed on chronic kidney disease Current Visit: Yes Status: Acute Assessment and Plan: Suspect due to acute interstitial nephritis thought to be contrast-induced SCr: 4.52->4.86->5.48->5.40->5.97->1.94->2.78 GFR: 10->9->9->8->7->26->17 Nephrology following with recommendations for hemodialysis later today (4) Elevated troponin Current Visit: Yes Status: Acute Assessment and Plan: Patient with elevated troponins suspected to be secondary to demand ischemia per cardiology Will continue to monitor on telemetry (5) CAD (coronary artery disease) Current Visit: Yes Status: Chronic Assessment and Plan: Patient with recent left heart catheterization on 10/22/18 Continue aspirin, Plavix. (6) HTN (hypertension) Current Visit: Yes Status: Chronic Assessment and Plan: On Amlodipine, atenolol. Will continue to monitor and adjust antihypertensive regimen. (7) Hypothyroidism Current Visit: Yes Status: Chronic Assessment and Plan: Continue levothyroxin DVT Prophylaxis: Heparin subcutaneous - Time Spent with Patient Total time spent is greater than 50% in coordination of care (as documented) at patient's floor/unit and/or counseling patient: Internal Medicine: Result - Labs CBC & Chem 7: 11/23/18 04:26 11/23/18 04:20 Labs: Short CBC 11/23/18 Range/Units 04:26 WBC 10.5 (4.3-11.1) K/mcL Hgb 7.4 L (11.5-15.4) g/dL Hct 22.9 L (35.3-44.9) % Plt Count 266 (140-400) K/mcL BMP 11/23/18 04:20 Sodium 137 Potassium 5.0 Chloride 102 Carbon Dioxide 21 L BUN 39 H Creatinine 2.78 H Glucose 143 H Calcium 8.6 Cardiac Enzymes 11/19/18 11/22/18 Range/Units 22:16 13:49 CK-MB (CK-2) 1.6 (0.0-5.0) ug/L Troponin I 0.03 (< 0.04) ng/mL - ABG Interpretation ABG results: ABG ABG pH 7.45 pH Units (7.32-7.45) 11/22/18 13:19 ABG pCO2 37 mmHg (35-45) 11/22/18 13:19 ABG pO2 41 mmHg (85-104) L* 11/22/18 13:19 ABG O2 Saturation 79 % (95-98) L 11/22/18 13:19 PT/INR, D-dimer PT 12.6 Seconds (9.4-12.1) H 11/18/18 11:06 - Impressions Impressions Chest X-Ray 11/19/18 13:47 IMPRESSION: Line placement without pneumothorax. Pulmonary edema with bilateral pleural effusions. D/ / 11/19/2018 14:23:33 Maicol Reyes MD / Raine Velasco Interpreting Provider: Maicol Reyes MD Consult Discharge Plan - Plan Referrals: Patricia Topete CNP [Primary Care Provider] - 11/29/18 9:00 am (2) COPD (chronic obstructive pulmonary disease) Qualifiers: COPD type: unspecified COPD Qualified Code(s): J44.9 - Chronic obstructive pulmonary disease, unspecified (5) CAD (coronary artery disease) Qualifiers: Coronary Disease-Associated Artery/Lesion type: [place] artery [place] vs. transplanted heart: [place] heart Associated angina: without angina Qualified Code(s): I25.10 - Atherosclerotic heart disease of [place] coronary artery without angina pectoris (6) HTN (hypertension) Qualifiers: Hypertension type: essential hypertension Qualified Code(s): I10 - Essential (primary) hypertension (7) Hypothyroidism Qualifiers: Hypothyroidism type: unspecified Qualified Code(s): E03.9 - Hypothyroidism, unspecified
[2018-11-23 16:25] LABS: Complement C3 128 mg/dL (87-200)
[2018-11-23] MEDS ORDERED: Metoclopramide 10 MG/2 ML VIAL IVP PRN ×2 (17:08→17:30)
[2018-11-23] MEDS ORDERED: traMADol 50 MG TABLET PO PRN (17:08)
[2018-11-23] MEDS ORDERED: Acetaminophen 325 MG TABLET PO PRN (17:08)
[2018-11-23] MEDS ORDERED: Naloxone 0.4 MG/ML INJ IVP PRN (17:08)
[2018-11-23] MEDS ORDERED: Insulin LISPRO 300 UNITS/3 ML VIAL SQ SCH (21:00)
[2018-11-23] MEDS: *HR* LORazepam 2 MG/ML VIAL IVP PRN (22:43)
[2018-11-23] MEDS: Ondansetron 4 MG/2 ML VIAL IVP PRN (23:32)
[2018-11-24] MEDS: Ipratropium/Albuterol Neb 3 ML IH SCH ×5 (03:47→20:41)
[2018-11-24 04:59] LABS: Hematocrit 21.4 % (35.3-44.9); Hemoglobin 6.9 g/dL (11.5-15.4); Mean Corpuscular HGB Conc 32.2 g/dL (31.6-35.5); Mean Corpuscular Hemoglobin 27.5 pg (28.0-33.3); Mean Corpuscular Volume 85.3 fL (83.0-100.0); Mean Platelet Volume 9.5 fL (9.4-12.4); Platelet Count 298 K/mcL (140-400); Red Blood Count 2.51 M/mcL (3.82-4.97); Red Cell Distribution Width 14.9 % (11.5-14.5)
[2018-11-24] MEDS: *HR* Heparin 5,000 UNIT/ML VIAL SQ SCH ×3 (05:14→20:54)
[2018-11-24 05:18] LABS: Calcium 8.6 mg/dL (8.6-10.3); Potassium 3.6 mEq/L (3.5-5.1)
--- NOTE | 2018-11-24 06:52 | Nephrology Progress Note ---
Date of Encounter: 11/24/18 Time of Encounter: 08:05 - Assessment and Plan (1) Acute kidney injury superimposed on chronic kidney disease Current Visit: Yes Status: Acute Recommend continuing the diuretic lasix 40mg IV daily. Oliguria noted on I/Os. SCr was lowered s/p HD yesterday, which she tolerated with re-orientation. No need for CCVHDF at this time. Will reassess for HD tomorrow. I continue to recommend renal dosing, strict I/Os, daily weights and avoidance of Nephrotoxins as able. Thank you. (2) COPD exacerbation Current Visit: No Status: Acute As per primary (3) CAD (coronary artery disease) Current Visit: Yes Status: Chronic As per primary Qualifiers: Coronary Disease-Associated Artery/Lesion type: [place] artery [place] vs. transplanted heart: [place] heart Associated angina: without angina Qualified Code(s): I25.10 - Atherosclerotic heart disease of [place] coronary artery without angina pectoris (4) HTN (hypertension) Current Visit: Yes Status: Chronic Titrate blood pressure medication as needed. . Avoid CHEIKH and ARB d/t the BJ. Qualifiers: Hypertension type: essential hypertension Qualified Code(s): I10 - Essential (primary) hypertension (5) Pleural effusion Current Visit: Yes Status: Acute (6) Abnormal CT of the chest Current Visit: Yes Status: Acute that demonstrated a left renal lesion, which will need further follow up when the pt is stable. Subjective Principal diagnosis: BJ on CKD, mild trop Interval history: Pt was s/e in her 2A room. She did not affirm active N/V/D. No family was present. She said that she had no issues during HD yesterday as her spouse was present during the treatment. Objective - Vital Signs Vital signs: Vital Signs Temp Pulse Resp BP Pulse Ox 11/24/18 04:01 98.4 F 84 20 153/79 92 11/24/18 03:49 16 96 11/24/18 00:00 98.6 F 90 20 130/70 94 11/23/18 23:10 16 91 11/23/18 19:51 18 92 11/23/18 19:15 98.4 F 18 150/76 11/23/18 19:00 143/79 11/23/18 18:45 148/77 11/23/18 18:30 144/76 11/23/18 18:15 141/81 11/23/18 18:00 150/73 11/23/18 17:45 138/70 11/23/18 17:30 144/80 11/23/18 17:15 137/70 11/23/18 17:00 123/75 11/23/18 16:45 140/72 11/23/18 16:30 127/72 11/23/18 16:15 130/78 11/23/18 16:00 97.8 F 18 126/76 11/23/18 15:22 92 11/23/18 13:00 85 19 119/93 92 11/23/18 12:47 99.1 F 11/23/18 12:00 85 19 131/76 92 11/23/18 11:15 18 94 11/23/18 11:00 88 21 132/76 93 11/23/18 10:00 88 18 131/75 93 11/23/18 09:00 90 19 126/81 94 11/23/18 08:00 93 21 138/82 91 11/23/18 07:40 98.7 F 11/23/18 07:00 98.7 F 92 21 120/81 93 Intake and Output 11/23/18 11/23/18 11/24/18 15:59 23:59 07:59 Intake Total 0 / 600 600 / 600 Output Total 50 / 2250 2100 / 2250 Balance -50 / -1650 -1500 / -1650 Intake: Oral 0 / 0 0 / 0 Intake, Rinseback and Flushes 600 / 600 Output: Urine 0 / 0 0 / 0 Total Dialysis (HD) Output 2100 / 2100 Catheter 50 / 150 Other: Weight 60.9 kg Blood Glucose* 148 139 Hemodialysis Net Fluid Removed 1500 (mL) Patient Weight 11/24/18 23:59 Weight 60.9 kg - General Appearance Exam: General appearance: Present: well-developed, well-nourished, appears started age, anxious EENT: Present: ATNC, PERRL, mucous membranes moist Neck: Present: supple Respiratory: Present: clear Cardiology: Present: no edema, regular rate, regular rhythm Dialysis Vascular Access: Venous Catheter (Right IJ temporary HD catheter, the dressing was C/D/I) Gastrointestinal: Present: normoactive bowel sounds, no tenderness Integumentary: Present: warm and dry Neurologic: Present: no focal deficit, alert and oriented x3 Musculoskeletal: Present: no cyanosis, no clubbing Psychiatric: Present: cooperative - Lab 11/24/18 04:35 11/24/18 04:35 Most recent lab results 11/24/18 04:35 Calcium 8.6 Consult Discharge Plan - Plan Referrals: Patricia Topete CNP [Primary Care Provider] - 11/29/18 9:00 am
[2018-11-24] MEDS: Budesonide/Formoterol 80/4.5 MDI IH SCH ×2 (07:17→20:41)
[2018-11-24] MEDS: Insulin LISPRO 300 UNITS/3 ML VIAL SQ SCH ×4 (07:55→20:55)
[2018-11-24] MEDS ORDERED: Furosemide 40 MG/4 ML VIAL IVP SCH (09:00)
[2018-11-24] MEDS: amLODIPine 5 MG TABLET PO SCH (09:01)
[2018-11-24] MEDS: Aspirin Enteric Coated 81 MG Tablet PO SCH (09:01)
[2018-11-24] MEDS: Isosorbide MONOnitrate (24 HR) 30 MG TAB.ER.24H PO SCH (09:01)
[2018-11-24] MEDS: Nitroglycerin 0.2 MG PATCH.TD24 TD SCH (09:02)
[2018-11-24] MEDS: Furosemide 40 MG/4 ML VIAL IVP SCH (09:02)
--- NOTE | 2018-11-24 09:29 | Internal Med Progress Note ---
Hospitalist Progress Note - Encounter Date of Encounter: 11/24/18 Time of Encounter: 11:00 - Subjective Interval History: Patient is a 68-year-old female with past medical history significant for O2 dependent COPD daily at bedtime and coronary arterial disease with recent left heart catheter on 10/22/18 who presents due to generalized weakness found to have acute kidney injury secondary to acute interstitial nephritis which is suspected to be contrast induced. Patient also with acute on chronic hypoxic respiratory failure now requiring hi gh amounts of oxygen supplementation as she was only needing to use oxygen supplementation daily at bedtime at home. During patient's hospital stay was transferred to the ICU for Daniella but no compelling indication to continue going forward with Daniella per nephrology; patient scheduled for BANK ADVISOR today and reassess for hemodialysis tomorrow Patients also developed worsening acute on chronic respiratory failure requiring BiPAP which is now improved; thought to be secondary to pulmonary edema. This morning, patient no longer requiring BiPAP but still requiring high amounts of O2 supplementation at 8 L nasal cannula - Exam Vitals: Temp Pulse Resp BP Pulse Ox 98.2 F 100 20 137/73 90 11/24/18 06:50 11/24/18 06:50 11/24/18 07:18 11/24/18 06:50 11/24/18 07:18 Exam: Gen.: Nonacute distress, alert and oriented 3 ENT: Mucosal membranes moist Respiratory: Lungs are clear to auscultation bilaterally without any wheezing rhonchi or rales Cardiovascular: Normal S1 and S2 regular rate rhythm no murmurs rubs or gallops Abdomen: Soft, nontender and nondistended with positive bowel sounds Extremities: No lower extremity edema Skin: Normal color - Assessment and Plan (1) Acute on chronic respiratory failure with hypoxia Current Visit: Yes Status: Acute Assessment and Plan: Patient with acute on chronic hypoxic respiratory failure now requiring high amounts of oxygen supplementation as she was only needing to use oxygen supplementation daily at bedtime at home CT angiogram of the chest showed no PE but multifocal airspace disease bilaterally was identified. Pulmonology was consulted and suspects secondary to patient's significant centrilobular emphysema to COPD disease compensated with pulmonary edema. Pleural effusions minimal and not enough for thoracentesis per pulmonology Patients respiratory status worsened on 11/22/18 requiring BiPAP is thought to be secondary to pulmonary edema. This morning, patient no longer requiring BiPAP but still requiring high amounts of O2 supplementation at 8 L nasal cannula; will attempt to wean patient down to 6 L nasal cannula and monitor Pulmonology following and appreciate recommendations (2) COPD (chronic obstructive pulmonary disease) Current Visit: Yes Status: Chronic Assessment and Plan: Pulmonology consulted and suspects patient with significant centrilobular emphysematous COPD disease Patient was placed on nitro drip overnight per pulmonology recommendations and patient's symptoms improved Continue bronchodilators as needed. (3) Acute kidney injury superimposed on chronic kidney disease Current Visit: Yes Status: Acute Assessment and Plan: Suspect due to acute interstitial nephritis thought to be contrast-induced SCr: 4.52->4.86->5.48->5.40->5.97->1.94->2.78->2.46 GFR: 10->9->9->8->7->26->17->19 Nephrology following with recommendations for BANK ADVISOR today and reevaluation for hemodialysis tomorrow (4) Elevated troponin Current Visit: Yes Status: Acute Assessment and Plan: Patient with elevated troponins suspected to be secondary to demand ischemia per cardiology Will continue to monitor on telemetry (5) CAD (coronary artery disease) Current Visit: Yes Status: Chronic Assessment and Plan: Patient with recent left heart catheterization on 10/22/18 Continue aspirin, Plavix. (6) HTN (hypertension) Current Visit: Yes Status: Chronic Assessment and Plan: On Amlodipine, atenolol. Will continue to monitor and adjust antihypertensive regimen. (7) Hypothyroidism Current Visit: Yes Status: Chronic Assessment and Plan: Continue levothyroxin DVT Prophylaxis: Heparin subcutaneous - Time Spent with Patient Total time spent is greater than 50% in coordination of care (as documented) at patient's floor/unit and/or counseling patient: Internal Medicine: Result - Labs CBC & Chem 7: 11/24/18 04:35 11/24/18 04:35 Labs: Short CBC 11/24/18 Range/Units 04:35 WBC 16.7 H D (4.3-11.1) K/mcL Hgb 6.9 L (11.5-15.4) g/dL Hct 21.4 L (35.3-44.9) % Plt Count 298 (140-400) K/mcL BMP 11/24/18 04:35 Sodium 136 Potassium 3.6 Chloride 99 Carbon Dioxide 30 H BUN 31 H Creatinine 2.46 H Glucose 99 Calcium 8.6 - ABG Interpretation ABG results: ABG ABG pH 7.45 pH Units (7.32-7.45) 11/22/18 13:19 ABG pCO2 37 mmHg (35-45) 11/22/18 13:19 ABG pO2 41 mmHg (85-104) L* 11/22/18 13:19 ABG O2 Saturation 79 % (95-98) L 11/22/18 13:19 PT/INR, D-dimer PT 12.6 Seconds (9.4-12.1) H 11/18/18 11:06 Consult Discharge Plan - Plan Referrals: Patricia Topete CNP [Primary Care Provider] - 11/29/18 9:00 am (2) COPD (chronic obstructive pulmonary disease) Qualifiers: COPD type: unspecified COPD Qualified Code(s): J44.9 - Chronic obstructive pulmonary disease, unspecified (5) CAD (coronary artery disease) Qualifiers: Coronary Disease-Associated Artery/Lesion type: [place] artery [place] vs. transplanted heart: [place] heart Associated angina: without angina Qualified Code(s): I25.10 - Atherosclerotic heart disease of [place] coronary artery without angina pectoris (6) HTN (hypertension) Qualifiers: Hypertension type: essential hypertension Qualified Code(s): I10 - Essential (primary) hypertension (7) Hypothyroidism Qualifiers: Hypothyroidism type: unspecified Qualified Code(s): E03.9 - Hypothyroidism, unspecified
[2018-11-25] MEDS: Ipratropium/Albuterol Neb 3 ML IH SCH ×7 (00:22→23:46)
[2018-11-25 03:58] LABS: Hematocrit 22.7 % (35.3-44.9); Hemoglobin 7.3 g/dL (11.5-15.4); Mean Corpuscular HGB Conc 32.2 g/dL (31.6-35.5); Mean Corpuscular Hemoglobin 27.7 pg (28.0-33.3); Platelet Count 303 K/mcL (140-400); Red Blood Count 2.64 M/mcL (3.82-4.97); Red Cell Distribution Width 14.7 % (11.5-14.5)
[2018-11-25 04:18] LABS: Calcium 8.6 mg/dL (8.6-10.3); Potassium 3.9 mEq/L (3.5-5.1)
[2018-11-25] MEDS: *HR* Heparin 5,000 UNIT/ML VIAL SQ SCH ×3 (06:23→21:50)
[2018-11-25] MEDS: Budesonide/Formoterol 80/4.5 MDI IH SCH ×2 (07:19→19:45)
[2018-11-25] MEDS ORDERED: 0.9 % Sodium Chloride 250 ML IVC PRN (07:21)
[2018-11-25] MEDS: Insulin LISPRO 300 UNITS/3 ML VIAL SQ SCH ×4 (07:47→21:41)
[2018-11-25] MEDS ORDERED: 0.9 % Sodium Chloride 2,000 ML ONE (07:49)
--- NOTE | 2018-11-25 08:23 | Internal Med Progress Note ---
Hospitalist Progress Note - Encounter Date of Encounter: 11/25/18 Time of Encounter: 11:00 - Subjective Interval History: Patient is a 68-year-old female with past medical history significant for O2 dependent COPD daily at bedtime and coronary arterial disease with recent left heart catheter on 10/22/18 who presents due to generalized weakness found to have acute kidney injury secondary to acute interstitial nephritis which is suspected to be contrast induced. Patient also with acute on chronic hypoxic respiratory failure now requiring hi gh amounts of oxygen supplementation as she was only needing to use oxygen supplementation daily at bedtime at home. Patient this morning still requiring high amounts of O2 supplementation at 10 L; pulmonology following She is also continuing with hemodialysis for acute on chronic renal failure - Exam Vitals: Temp Pulse Resp BP Pulse Ox 98.3 F 80 18 143/68 90 11/25/18 07:05 11/25/18 07:05 11/25/18 07:19 11/25/18 07:05 11/25/18 07:19 Exam: Gen.: Nonacute distress, alert and oriented 3 ENT: Mucosal membranes moist Respiratory: Lungs are clear to auscultation bilaterally without any wheezing rhonchi or rales Cardiovascular: Normal S1 and S2 regular rate rhythm no murmurs rubs or gallops Abdomen: Soft, nontender and nondistended with positive bowel sounds Extremities: No lower extremity edema Skin: Normal color - Assessment and Plan (1) Acute on chronic respiratory failure with hypoxia Current Visit: Yes Status: Acute Assessment and Plan: Patient with acute on chronic hypoxic respiratory failure now requiring high amounts of oxygen supplementation as she was only needing to use oxygen supplementation daily at bedtime at home CT angiogram of the chest showed no PE but multifocal airspace disease bilaterally was identified. Pulmonology was consulted and suspects secondary to patient's significant centrilobular emphysema to COPD disease compensated with pulmonary edema. Patient this morning still requiring high amounts of O2 supplementation at 10 L without much improvement during her hospital stay Pulmonology following and appreciate recommendations (2) COPD (chronic obstructive pulmonary disease) Current Visit: Yes Status: Chronic Assessment and Plan: Pulmonology consulted and suspects patient with significant centrilobular emphysematous COPD disease Patient was placed on nitro drip while in the ICU per pulmonology recommendations and patient's symptoms improved; nitro drip has been since discontinued Continue bronchodilators as needed. Pulmonology following and appreciate recommendations (3) Acute kidney injury superimposed on chronic kidney disease Current Visit: Yes Status: Acute Assessment and Plan: Suspect due to acute interstitial nephritis thought to be contrast-induced SCr: 4.52->4.86->5.48->5.40->5.97->1.94->2.78->2.46->4.02 GFR: 10->9->9->8->7->26->17->19->11 Nephrology following and appreciate recommendations (4) Elevated troponin Current Visit: Yes Status: Acute Assessment and Plan: Patient with elevated troponins suspected to be secondary to demand ischemia per cardiology Will continue to monitor on telemetry (5) CAD (coronary artery disease) Current Visit: Yes Status: Chronic Assessment and Plan: Patient with recent left heart catheterization on 10/22/18 Continue aspirin, Plavix. (6) HTN (hypertension) Current Visit: Yes Status: Chronic Assessment and Plan: On Amlodipine, atenolol. Will continue to monitor and adjust antihypertensive regimen. (7) Hypothyroidism Current Visit: Yes Status: Chronic Assessment and Plan: Continue levothyroxin DVT Prophylaxis: Heparin subcutaneous - Time Spent with Patient Total time spent is greater than 50% in coordination of care (as documented) at patient's floor/unit and/or counseling patient: Internal Medicine: Result - Labs CBC & Chem 7: 11/25/18 03:45 11/25/18 03:45 Labs: Short CBC 11/25/18 Range/Units 03:45 WBC 13.3 H (4.3-11.1) K/mcL Hgb 7.3 L (11.5-15.4) g/dL Hct 22.7 L (35.3-44.9) % Plt Count 303 (140-400) K/mcL BMP 11/25/18 03:45 Sodium 134 L Potassium 3.9 Chloride 96 L Carbon Dioxide 28 BUN 48 H Creatinine 4.02 H Glucose 99 Calcium 8.6 - ABG Interpretation ABG results: ABG ABG pH 7.45 pH Units (7.32-7.45) 11/22/18 13:19 ABG pCO2 37 mmHg (35-45) 11/22/18 13:19 ABG pO2 41 mmHg (85-104) L* 11/22/18 13:19 ABG O2 Saturation 79 % (95-98) L 11/22/18 13:19 PT/INR, D-dimer PT 12.6 Seconds (9.4-12.1) H 11/18/18 11:06 Consult Discharge Plan - Plan Referrals: Patricia Topete CNP [Primary Care Provider] - 11/29/18 9:00 am (2) COPD (chronic obstructive pulmonary disease) Qualifiers: COPD type: unspecified COPD Qualified Code(s): J44.9 - Chronic obstructive pulmonary disease, unspecified (5) CAD (coronary artery disease) Qualifiers: Coronary Disease-Associated Artery/Lesion type: [place] artery [place] vs. transplanted heart: [place] heart Associated angina: without angina Qualified Code(s): I25.10 - Atherosclerotic heart disease of [place] coronary artery without angina pectoris (6) HTN (hypertension) Qualifiers: Hypertension type: essential hypertension Qualified Code(s): I10 - Essential (primary) hypertension (7) Hypothyroidism Qualifiers: Hypothyroidism type: unspecified Qualified Code(s): E03.9 - Hypothyroidism, unspecified
[2018-11-25] MEDS: Aspirin Enteric Coated 81 MG Tablet PO SCH (08:46)
[2018-11-25] MEDS: Nitroglycerin 0.2 MG PATCH.TD24 TD SCH (08:47)
[2018-11-25] MEDS: Ondansetron 4 MG/2 ML VIAL IVP PRN ×2 (10:12→22:00)
[2018-11-25] MEDS: *HR* LORazepam 2 MG/ML VIAL IVP PRN (10:17)
--- NOTE | 2018-11-25 10:17 | Electrocardiograph Report ---
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
[2018-11-25 10:30] LABS: ANA IgG by ELISA NONE DETECTED (None Detected)
--- NOTE | 2018-11-25 11:54 | Nephrology Progress Note ---
Date of Encounter: 11/25/18 Time of Encounter: 08:50 - Assessment and Plan (1) Acute kidney injury superimposed on chronic kidney disease Current Visit: Yes Status: Acute Rec HD today. If she does not demonstrate renal recovery soon, then I'd recommend placing a Permacath. Sunday labs will represent the work of clearance from HD today, so Sunday labs will be telling if she has much renal recovery yet. HD planned for today (Sunday). I reviewed the pt's vital sign and lab trends, meds, I/Os and progress notes, which I used to evaluate and then compose HD orders. I continue to recommend renal dosing, strict I/Os, daily weights and avoidance of Nephrotoxins as able. Thank you. (2) COPD exacerbation Current Visit: No Status: Acute As per primary (3) CAD (coronary artery disease) Current Visit: Yes Status: Chronic Qualifiers: Coronary Disease-Associated Artery/Lesion type: [place] artery [place] vs. transplanted heart: [place] heart Associated angina: without angina Qualified Code(s): I25.10 - Atherosclerotic heart disease of [place] coronary artery without angina pectoris (4) HTN (hypertension) Current Visit: Yes Status: Chronic Titrate blood pressure medication as needed. . Avoid CHEIKH and ARB d/t the BJ. Qualifiers: Hypertension type: essential hypertension Qualified Code(s): I10 - Essential (primary) hypertension (5) Pleural effusion Current Visit: Yes Status: Acute (6) Abnormal CT of the chest Current Visit: Yes Status: Acute that demonstrated a left renal lesion, which will need further follow up when t he pt is stable. Subjective Principal diagnosis: BJ on CKD, mild trop Interval history: Pt was s/e in her 2A room. She did not affirm active N/V/D. No family was present. She said her was at work. She reported having a better appetite. Objective - Vital Signs Vital signs: Vital Signs Temp Pulse Resp BP Pulse Ox 11/25/18 07:19 18 90 11/25/18 07:05 98.3 F 80 18 143/68 90 11/25/18 04:14 16 88 11/25/18 03:56 98.1 F 80 16 150/79 90 11/25/18 00:09 98.8 F 81 16 139/69 89 11/24/18 20:55 88 11/24/18 20:53 16 88 11/24/18 19:39 98.7 F 74 16 143/76 94 11/24/18 17:11 98.2 F 75 18 128/69 87 11/24/18 15:37 18 90 Intake and Output 11/24/18 11/25/18 11/25/18 23:59 07:59 15:59 Intake Total 120 / 360 0 / 240 240 / 240 Output Total 200 / 450 500 / 500 Balance -80 / -90 0 / -260 -260 / -260 Intake: Oral 120 / 360 0 / 240 240 / 240 Output: Urine 0 / 0 0 / 0 Catheter 200 / 450 500 / 500 Urethral ([place]) 500 / 500 Other: Meal Dinner Breakfast Percent of Meal Consumed 25% 90% # Bowel Movements 0 Blood Glucose* 119 102 106 - General Appearance Exam: General appearance: Present: well-developed, well-nourished, appears started age, anxious EENT: Present: ATNC, PERRL, mucous membranes moist Neck: Present: supple Respiratory: Present: clear Cardiology: Present: no edema, regular rate, regular rhythm Dialysis Vascular Access: Venous Catheter (Right IJ temporary HD catheter, the dressing was C/D/I) Gastrointestinal: Present: normoactive bowel sounds, no tenderness Integumentary: Present: warm and dry Neurologic: Present: no focal deficit, alert and oriented x3 Musculoskeletal: Present: no cyanosis, no clubbing Psychiatric: Present: cooperative, anxious - Lab 11/25/18 03:45 11/25/18 03:45 Most recent lab results 11/25/18 03:45 Calcium 8.6 Consult Discharge Plan - Plan Referrals: Patricia Topete CNP [Primary Care Provider] - 11/29/18 9:00 am
[2018-11-25] MEDS: amLODIPine 5 MG TABLET PO SCH (14:41)
[2018-11-25] MEDS: Furosemide 40 MG/4 ML VIAL IVP SCH (14:41)
[2018-11-25] MEDS: Isosorbide MONOnitrate (24 HR) 30 MG TAB.ER.24H PO SCH (14:41)
[2018-11-26] MEDS: Ipratropium/Albuterol Neb 3 ML IH SCH ×5 (03:54→20:04)
[2018-11-26 03:56] LABS: Hematocrit 21.8 % (35.3-44.9); Mean Corpuscular HGB Conc 32.1 g/dL (31.6-35.5); Mean Corpuscular Hemoglobin 27.8 pg (28.0-33.3); Mean Corpuscular Volume 86.5 fL (83.0-100.0); Mean Platelet Volume 9.1 fL (9.4-12.4); Platelet Count 236 K/mcL (140-400); Red Blood Count 2.52 M/mcL (3.82-4.97); Red Cell Distribution Width 14.6 % (11.5-14.5)
[2018-11-26 04:16] LABS: Calcium 8.1 mg/dL (8.6-10.3); Potassium 3.8 mEq/L (3.5-5.1)
[2018-11-26] MEDS: *HR* Heparin 5,000 UNIT/ML VIAL SQ SCH ×3 (06:10→21:16)
[2018-11-26] MEDS: Budesonide/Formoterol 80/4.5 MDI IH SCH ×2 (07:11→20:05)
[2018-11-26] MEDS: Insulin LISPRO 300 UNITS/3 ML VIAL SQ SCH ×4 (08:31→21:13)
[2018-11-26] MEDS: Aspirin Enteric Coated 81 MG Tablet PO SCH (09:23)
[2018-11-26] MEDS: amLODIPine 5 MG TABLET PO SCH (09:23)
[2018-11-26] MEDS: Nitroglycerin 0.2 MG PATCH.TD24 TD SCH (09:23)
[2018-11-26] MEDS: Isosorbide MONOnitrate (24 HR) 30 MG TAB.ER.24H PO SCH (09:23)
[2018-11-26] MEDS: Furosemide 40 MG/4 ML VIAL IVP SCH (09:26)
[2018-11-26 09:31] LABS: Myeloperoxidase Ab 0 AU/mL (0-19)
[2018-11-26 09:32] LABS: Serine Protease-3 Antibody 0 AU/mL (0-19)
--- NOTE | 2018-11-26 10:32 | Internal Med Progress Note ---
Hospitalist Progress Note - Encounter Date of Encounter: 11/26/18 Time of Encounter: 11:00 - Subjective Interval History: Patient is a 68-year-old female with past medical history significant for O2 dependent COPD daily at bedtime and coronary arterial disease with recent left heart catheter on 10/22/18 who presents due to generalized weakness found to have acute kidney injury secondary to acute interstitial nephritis which is suspected to be contrast induced. Patient also with acute on chronic hypoxic respiratory failure now requiring high amounts of oxygen supplementation as she was only needing to use oxygen supplementation daily at bedtime at home. Patient this morning still requiring high amounts of O2 supplementation at 5 L; pulmonology reconsulted for further recommendations She is also continuing with hemodialysis for acute on chronic renal failure - Exam Vitals: Temp Pulse Resp BP Pulse Ox 98.9 F 80 18 146/73 91 11/26/18 07:25 11/26/18 07:25 11/26/18 07:25 11/26/18 07:25 11/26/18 07:25 Exam: Gen.: Nonacute distress, alert and oriented 3 ENT: Mucosal membranes moist Respiratory: Lungs are clear to auscultation bilaterally without any wheezing rhonchi or rales Cardiovascular: Normal S1 and S2 regular rate rhythm no murmurs rubs or gallops Abdomen: Soft, nontender and nondistended with positive bowel sounds Extremities: No lower extremity edema Skin: Normal color - Assessment and Plan (1) Acute on chronic respiratory failure with hypoxia Current Visit: Yes Status: Acute Assessment and Plan: Patient with acute on chronic hypoxic respiratory failure now requiring high amounts of oxygen supplementation as she was only needing to use oxygen supplementation daily at bedtime at home CT angiogram of the chest showed no PE but multifocal airspace disease bilaterally was identified. Pulmonology was consulted and suspects secondary to patient's significant centrilobular emphysema to COPD disease compensated with pulmonary edema. Patient this morning still requiring high amounts of O2 supplementation at 5 L without much improvement during her hospital stay Pulmonology following and appreciate recommendations (2) COPD (chronic obstructive pulmonary disease) Current Visit: Yes Status: Chronic Assessment and Plan: Pulmonology consulted and suspects patient with significant centrilobular em physematous COPD disease Patient was placed on nitro drip while in the ICU per pulmonology recommend ations and patient's symptoms improved; nitro drip has been since discontinued Continue bronchodilators as needed. Pulmonology following and appreciate recommendations (3) Acute kidney injury superimposed on chronic kidney disease Current Visit: Yes Status: Acute Assessment and Plan: Suspect due to acute interstitial nephritis thought to be contrast-induced SCr: 4.52->4.86->5.48->5.40->5.97->1.94->2.78->2.46->4.02->2.98 GFR: 10->9->9->8->7->26->17->19->11->16 Nephrology following and appreciate recommendations (4) Elevated troponin Current Visit: Yes Status: Acute Assessment and Plan: Patient with elevated troponins suspected to be secondary to demand ischemia per cardiology Will continue to monitor on telemetry (5) CAD (coronary artery disease) Current Visit: Yes Status: Chronic Assessment and Plan: Patient with recent left heart catheterization on 10/22/18 Continue aspirin, Plavix. (6) HTN (hypertension) Current Visit: Yes Status: Chronic Assessment and Plan: On Amlodipine, atenolol. Will continue to monitor and adjust antihypertensive regimen. (7) Hypothyroidism Current Visit: Yes Status: Chronic Assessment and Plan: Continue levothyroxin DVT Prophylaxis: Heparin subcutaneous - Time Spent with Patient Total time spent is greater than 50% in coordination of care (as documented) at patient's floor/unit and/or counseling patient: Internal Medicine: Result - Labs CBC & Chem 7: 11/26/18 03:45 11/26/18 03:45 Labs: Short CBC 11/26/18 Range/Units 03:45 WBC 12.1 H (4.3-11.1) K/mcL Hgb 7.0 L (11.5-15.4) g/dL Hct 21.8 L (35.3-44.9) % Plt Count 236 (140-400) K/mcL BMP 11/26/18 03:45 Sodium 135 L Potassium 3.8 Chloride 95 L Carbon Dioxide 33 H BUN 27 H Creatinine 2.98 H Glucose 96 Calcium 8.1 L - ABG Interpretation ABG results: ABG ABG pH 7.45 pH Units (7.32-7.45) 11/22/18 13:19 ABG pCO2 37 mmHg (35-45) 11/22/18 13:19 ABG pO2 41 mmHg (85-104) L* 11/22/18 13:19 ABG O2 Saturation 79 % (95-98) L 11/22/18 13:19 PT/INR, D-dimer PT 12.6 Seconds (9.4-12.1) H 11/18/18 11:06 Consult Discharge Plan - Plan Referrals: Patricia Topete CNP [Primary Care Provider] - 11/29/18 9:00 am (2) COPD (chronic obstructive pulmonary disease) Qualifiers: COPD type: unspecified COPD Qualified Code(s): J44.9 - Chronic obstructive pulmonary disease, unspecified (5) CAD (coronary artery disease) Qualifiers: Coronary Disease-Associated Artery/Lesion type: [place] artery [place] vs. transplanted heart: [place] heart Associated angina: without angina Qualified Code(s): I25.10 - Atherosclerotic heart disease of [place] coronary artery without angina pectoris (6) HTN (hypertension) Qualifiers: Hypertension type: essential hypertension Qualified Code(s): I10 - Essential (primary) hypertension (7) Hypothyroidism Qualifiers: Hypothyroidism type: unspecified Qualified Code(s): E03.9 - Hypothyroidism, unspecified
[2018-11-26] MEDS ORDERED: Nitroglycerin 0.4 MG TAB.SUBL SL PRN (11:12)
--- NOTE | 2018-11-26 12:31 | Nephrology Progress Note ---
Date of Encounter: 11/26/18 Time of Encounter: 09:50 - Assessment and Plan (1) Acute kidney injury superimposed on chronic kidney disease Current Visit: Yes Status: Acute s/p HD yesterday (Sunday). No HD today needed, but if her SCr does not trend significantly better, then she'd need a Permacath/outpt HD. Should hold Plavix as discussed with the RN. I continue to recommend renal dosing, strict I/Os, daily weights and avoidance of Nephrotoxins as able. Thank you. (2) COPD exacerbation Current Visit: No Status: Acute (3) CAD (coronary artery disease) Current Visit: Yes Status: Chronic Qualifiers: Coronary Disease-Associated Artery/Lesion type: [place] artery [place] vs. transplanted heart: [place] heart Associated angina: without angina Qualified Code(s): I25.10 - Atherosclerotic heart disease of [place] coronary artery without angina pectoris (4) HTN (hypertension) Current Visit: Yes Status: Chronic Qualifiers: Hypertension type: essential hypertension Qualified Code(s): I10 - Essential (primary) hypertension (5) Pleural effusion Current Visit: Yes Status: Acute (6) Abnormal CT of the chest Current Visit: Yes Status: Acute Subjective Principal diagnosis: BJ on CKD, mild trop Interval history: Pt was s/e in her 2A room. Her spouse was present, and I answered all of his questions. Today she did not affirm nausea, vomiting, diarrhea. She reported n o major complaints with dialysis that occurred yesterday. Objective - Vital Signs Vital signs: Vital Signs Temp Pulse Resp BP Pulse Ox 11/26/18 11:48 99.0 F 88 18 125/69 91 11/26/18 11:09 18 94 11/26/18 07:25 98.9 F 80 18 146/73 91 11/26/18 07:11 18 92 11/26/18 04:05 99 F 81 17 145/71 92 11/26/18 03:54 20 91 11/26/18 00:08 99.1 F 102 18 137/82 92 11/25/18 23:47 16 90 11/25/18 19:45 18 90 11/25/18 19:12 98.9 F 73 16 123/71 95 11/25/18 15:57 98.1 F 81 20 145/71 94 11/25/18 15:17 16 95 11/25/18 14:19 98.3 F 87 19 149/75 93 11/25/18 13:40 97.7 F 18 147/78 11/25/18 13:30 122/88 11/25/18 13:15 162/93 11/25/18 13:00 150/77 11/25/18 12:45 149/81 Intake and Output 11/25/18 11/26/18 11/26/18 23:59 07:59 15:59 Intake Total 120 / 1200 100 / 340 240 / 340 Output Total 400 / 2707 200 / 200 0 / 200 Balance -280 / -1507 -100 / 140 240 / 140 Intake: Oral 120 / 600 100 / 340 240 / 340 Output: Urine 0 / 0 Catheter 400 / 900 200 / 200 Other: Meal Breakfast Percent of Meal Consumed 10% Blood Glucose* 142 97 139 - General Appearance Exam: General appearance: Present: well-developed, well-nourished, appears started age, anxious EENT: Present: ATNC, PERRL, mucous membranes moist Neck: Present: supple Respiratory: Present: clear Cardiology: Present: no edema, regular rate, regular rhythm Dialysis Vascular Access: Venous Catheter (Right IJ temporary HD catheter, the dressing was C/D/I) Gastrointestinal: Present: normoactive bowel sounds, no tenderness Integumentary: Present: warm and dry Neurologic: Present: no focal deficit, alert and oriented x3 Musculoskeletal: Present: no cyanosis, no clubbing Psychiatric: Present: cooperative, anxious - Lab 11/26/18 03:45 11/26/18 03:45 Most recent lab results 11/26/18 03:45 Calcium 8.1 L Consult Discharge Plan - Plan Referrals: Patricia Topete CNP [Primary Care Provider] - 11/29/18 9:00 am
--- NOTE | 2018-11-26 16:01 | Pulmonology Progress Note ---
Date of Encounter: 11/26/18 Time of Encounter: 15:00 Assessment and Plan (1) COPD (chronic obstructive pulmonary disease) Current Visit: Yes Status: Chronic Patient is on long-term oxygen therapy and she is requiring higher oxygen from her baseline. Since she is slowly improving with all her comorbidities I would continue her bronchodilators and wean off FiO2. Mobilization is very important and if possible fluid removal. I have discussed this with the patient and the primary team. Please call for any questions. Qualifiers: COPD type: unspecified COPD Qualified Code(s): J44.9 - Chronic obstructive pulmonary disease, unspecified Subjective Principal diagnosis: BJ on CKD, mild trop Interval history: Overall patient is feeling better and she still feel weak Objective PUL Vital signs: Last Vital Signs Temp 98.2 F 11/26/18 15:46 Pulse 71 11/26/18 15:46 Resp 18 11/26/18 15:46 BP 128/72 11/26/18 15:46 Pulse Ox 92 11/26/18 15:46 General appearance: no acute distress Eyes: nonicteric ENT: oropharynx moist Neck: supple Effort: mildly labored Auscultation: bilateral: diminished breath sounds Percussion: bilateral: not dull Cardiovascular: regular rate and rhythm Gastrointestinal: normoactive bowel sounds, non-distended Extremities: no cyanosis, edema normal mental status, non-focal exam Results - Laboratory Findings CBC and BMP: 11/27/18 03:46 11/27/18 03:46 ABG ABG pH 7.45 pH Units (7.32-7.45) 11/22/18 13:19 ABG pCO2 37 mmHg (35-45) 11/22/18 13:19 ABG pO2 41 mmHg (85-104) L* 11/22/18 13:19 ABG O2 Saturation 79 % (95-98) L 11/22/18 13:19 PT/INR, D-dimer PT 12.6 Seconds (9.4-12.1) H 11/18/18 11:06 Abnormal lab findings: Abnormal lab results WBC 12.1 K/mcL (4.3-11.1) H 11/26/18 03:45 RBC 2.52 M/mcL (3.82-4.97) L 11/26/18 03:45 Hgb 7.0 g/dL (11.5-15.4) L 11/26/18 03:45 Hct 21.8 % (35.3-44.9) L 11/26/18 03:45 MCV 82.4 fL (83.0-100.0) L 11/21/18 05:55 MCH 27.8 pg (28.0-33.3) L 11/26/18 03:45 MCHC 31.5 g/dL (31.6-35.5) L 11/14/18 10:24 RDW 14.6 % (11.5-14.5) H 11/26/18 03:45 MPV 9.1 fL (9.4-12.4) L 11/26/18 03:45 9.5 K/mcL (1.6-8.9) H 11/22/18 03:10 1.4 K/mcL (0.0-0.6) H 11/19/18 06:40 PT 12.6 Seconds (9.4-12.1) H 11/18/18 11:06 ABG pCO2 46 mmHg (35-45) H 11/22/18 03:50 ABG pO2 41 mmHg (85-104) L* 11/22/18 13:19 ABG Total CO2 27 mEq/L (20-26) H 11/22/18 13:19 ABG O2 Saturation 79 % (95-98) L 11/22/18 13:19 ABG Base Excess -4 mEq/L (-2 to 3) L 11/19/18 17:00 Sodium 135 mEq/L (136-145) L 11/26/18 03:45 Chloride 95 mEq/L (98-107) L 11/26/18 03:45 Carbon Dioxide 33 mEq/L (23-29) H 11/26/18 03:45 BUN 27 mg/dL (8-23) H 11/26/18 03:45 2.98 mg/dL (0.60-1.20) H 11/26/18 03:45 Est GFR ( Amer) 19 (> 60) L 11/26/18 03:45 Est GFR (Non-Af Amer) 16 (> 60) L 11/26/18 03:45 Glucose 143 mg/dL (70-105) H 11/23/18 04:20 POC Glucose 142 mg/dL (70-99) H 11/25/18 19:51 301 (280-300) H 11/21/18 05:55 Calcium 8.1 mg/dL (8.6-10.3) L 11/26/18 03:45 Phosphorus 2.5 mg/dL (2.7-4.5) L 11/22/18 03:10 Magnesium 1.5 mg/dL (1.6-2.6) L 11/15/18 03:22 Iron 14 mcg/dL (50-170) L 11/17/18 06:17 % Saturation 5 % (15-50) L 11/17/18 06:17 202 ng/mL (10-120) H 11/17/18 06:17 0.08 ng/mL (< 0.04) H* 11/19/18 06:40 B-Natriuretic Peptide 1435 pg/mL (Less than 100) H 11/22/18 13:49 5.9 g/dL (6.4-8.9) L 11/22/18 03:10 3.2 g/dL (3.5-5.7) L 11/22/18 03:10 Vitamin B12 > 1500 pg/mL (250-1100) H 11/17/18 06:17 > 22.3 ng/mL (3.0-16.0) H 11/17/18 06:17 TSH 8.042 mcIU/mL (0.340-5.600) H 11/14/18 10:24 Total T3 0.54 ng/mL (0.87-1.78) L 11/15/18 03:22 30 mg/dL (Neg-Trace) H 11/14/18 10:13 Ur Squamous Epith Cells Many per lpf (None-Few) H 11/14/18 10:13 Hep Bs Antibody 3.49 mIU/mL (10.00-) L 11/19/18 07:36 - Microbiology Findings Microbiology Findings: Microbiology, Last 48 Hours 11/24/18 12:40 Sputum Culture - Final Sputum 11/24/18 04:28 Urine Culture - Final Urine,[place] No significant growth. - Clinical Findings Intake & Output: Intake & Output 11/25/18 11/26/18 11/26/18 23:59 07:59 15:59 Intake Total 120 / 1200 100 / 460 360 / 460 Output Total 400 / 2707 200 / 700 500 / 700 Balance -280 / -1507 -100 / -240 -140 / -240 Consult Discharge Plan - Plan Referrals: Patricia Topete CNP [Primary Care Provider] - 11/29/18 9:00 am
[2018-11-26 16:24] LABS: Kappa Qnt Free Light Chains 7.57 mg/dL (0.33-1.94); Lambda Qnt Free Light Chains 4.29 mg/dL (0.57-2.63)
[2018-11-26] MEDS: Metoclopramide 10 MG/10 ML UD.LIQ PO PRN (18:29)
[2018-11-27] MEDS: Ipratropium/Albuterol Neb 3 ML IH SCH ×7 (00:05→23:17)
[2018-11-27 04:10] LABS: Hematocrit 21.7 % (35.3-44.9); Hemoglobin 6.9 g/dL (11.5-15.4); Mean Corpuscular HGB Conc 31.8 g/dL (31.6-35.5); Mean Corpuscular Hemoglobin 27.2 pg (28.0-33.3); Mean Corpuscular Volume 85.4 fL (83.0-100.0); Mean Platelet Volume 9.5 fL (9.4-12.4); Platelet Count 257 K/mcL (140-400); Red Blood Count 2.54 M/mcL (3.82-4.97); Red Cell Distribution Width 14.1 % (11.5-14.5)
[2018-11-27 04:22] LABS: Calcium 8.4 mg/dL (8.6-10.3); Potassium 3.7 mEq/L (3.5-5.1)
[2018-11-27] MEDS: *HR* Heparin 5,000 UNIT/ML VIAL SQ SCH ×2 (05:50→17:19)
[2018-11-27] MEDS: Budesonide/Formoterol 80/4.5 MDI IH SCH ×2 (07:23→19:44)
[2018-11-27] MEDS ORDERED: 0.9 % Sodium Chloride 250 ML IVC PRN (07:36)
--- NOTE | 2018-11-27 07:40 | Nephrology Progress Note ---
Date of Encounter: 11/27/18 Time of Encounter: 09:05 - Assessment and Plan (1) Acute kidney injury superimposed on chronic kidney disease Current Visit: Yes Status: Acute She will need a Permacath/outpt HD. Should hold Plavix as discussed with the RN. We will have to wait 5 days after holding the Plavix before permacath can be placed. Her renal function is such that she should have ongoing dialysis, in the setting of dialysis-dependent acute kidney injury. I have placed HD orders for today, as well as standing orders for Sunday. I continue to recommend renal dosing, strict I/Os, daily weights and avoidance of Nephrotoxins as able. She and her asked me about the worsening anemia. Because she is requiring intermittent hemodialysis, I recommend adding EPO thrice weekly. She should have IV iron, which I see was ordered while receiveing EPO. Thank you. (2) COPD exacerbation Current Visit: No Status: Acute As per primary (3) CAD (coronary artery disease) Current Visit: Yes Status: Chronic As per primary Qualifiers: Coronary Disease-Associated Artery/Lesion type: [place] artery [place] vs. transplanted heart: [place] heart Associated angina: without angina Qualified Code(s): I25.10 - Atherosclerotic heart disease of [place] coronary artery without angina pectoris (4) HTN (hypertension) Current Visit: Yes Status: Chronic Titrate blood pressure medication as needed. . Avoid CHEIKH and ARB d/t the BJ. Qualifiers: Hypertension type: essential hypertension Qualified Code(s): I10 - Essential (primary) hypertension (5) Pleural effusion Current Visit: Yes Status: Acute (6) Abnormal CT of the chest Current Visit: Yes Status: Acute (7) Anemia Current Visit: Yes Status: Chronic Goal Hgb is 10-11 DANN and IV iron. Pt has adventism objections to PRBCs. Discussed in detail with her and her when the pt was seen a second time while on dialysis later in the day. Qualifiers: Anemia type: iron deficiency Iron deficiency anemia type: unspecified iron deficiency Qualified Code(s): D50.9 - Iron deficiency anemia, unspecified Subjective Principal diagnosis: BJ on CKD, mild trop Interval history: Pt was s/e in her 2A room. She did not affirm nausea, vomiting, but did report having some fatigue still present. She has not made much urine, she said. She has a diminished appetite and ongoing anxiety, which is overall better tolerated with dialysis, she voiced. Objective - Vital Signs Vital signs: Vital Signs Temp Pulse Resp BP Pulse Ox 11/27/18 07:27 97.8 F 80 20 155/76 99 11/27/18 04:14 97.9 F 80 22 144/73 91 11/27/18 00:05 16 95 11/26/18 23:38 98.3 F 76 16 149/72 94 11/26/18 20:05 15 90 11/26/18 19:23 98.0 F 78 18 143/76 91 11/26/18 15:46 98.2 F 71 18 128/72 92 11/26/18 15:32 18 92 11/26/18 11:48 99.0 F 88 18 125/69 91 11/26/18 11:09 18 94 Intake and Output 11/26/18 11/26/18 11/27/18 15:59 23:59 07:59 Intake Total 360 / 760 300 / 760 120 / 120 Output Total 500 / 1300 600 / 1300 500 / 500 Balance -140 / -540 -300 / -540 -380 / -380 Intake: Oral 360 / 760 300 / 760 120 / 120 Output: Urine 0 / 0 0 / 0 Catheter 500 / 1300 600 / 1300 500 / 500 Urethral ([place]) 300 / 300 Other: Meal Lunch Dinner Percent of Meal Consumed 20% 40% Blood Glucose* 114 132 102 - General Appearance Exam: General appearance: Present: well-developed, well-nourished, appears started age, anxious EENT: Present: ATNC, PERRL, mucous membranes moist Neck: Present: supple Respiratory: Present: clear Cardiology: Present: no edema, regular rate, regular rhythm Dialysis Vascular Access: Venous Catheter (Right IJ temporary HD catheter, the dressing was C/D/I) Gastrointestinal: Present: normoactive bowel sounds, no tenderness Integumentary: Present: warm and dry Neurologic: Present: no focal deficit, alert and oriented x3 Musculoskeletal: Present: no cyanosis, no clubbing Psychiatric: Present: cooperative, anxious - Lab 11/29/18 04:45 11/29/18 04:45 Most recent lab results 11/27/18 03:46 Calcium 8.4 L Consult Discharge Plan - Plan Referrals: Patricia Topete CNP [Primary Care Provider] - 11/29/18 9:00 am
[2018-11-27 09:03] LABS: Alpha 2 Globulin (PEP) 0.86 g/dL (0.48-1.05); Beta Globulin (PEP) 0.53 g/dL (0.48-1.10)
[2018-11-27 09:30] LABS: IFE Reflexed IFE Done
[2018-11-27 09:31] LABS: Immunoglobulin A 107 mg/dL (68-408); Immunoglobulin G 564 mg/dL (768-1632); Immunoglobulin M 16 mg/dL (35-263)
[2018-11-27] MEDS: Insulin LISPRO 300 UNITS/3 ML VIAL SQ SCH ×4 (09:39→20:31)
[2018-11-27] MEDS: Ondansetron 4 MG/2 ML VIAL IVP PRN (11:35)
[2018-11-27] MEDS ORDERED: *HR* Heparin 10,000 UNIT/10 ML VIAL IV PRN (11:43)
[2018-11-27] MEDS: Furosemide 40 MG/4 ML VIAL IVP SCH (12:24)
[2018-11-27] MEDS: amLODIPine 5 MG TABLET PO SCH (12:25)
[2018-11-27] MEDS: Aspirin Enteric Coated 81 MG Tablet PO SCH (12:25)
[2018-11-27] MEDS: Isosorbide MONOnitrate (24 HR) 30 MG TAB.ER.24H PO SCH (12:25)
[2018-11-27] MEDS: *HR* LORazepam 1 MG TABLET PO PRN (12:38)
[2018-11-27] MEDS ORDERED: Iron Sucrose Complex 400 MG in 0.9 % Sodium Chloride 250 ML IVPB ONE (13:56)
--- NOTE | 2018-11-27 14:03 | Internal Med Progress Note ---
Hospitalist Progress Note - Encounter Date of Encounter: 11/27/18 Time of Encounter: 14:01 - Subjective Interval History: I have seen and evaluated the patient and bedside. Patient completed her first hemodialysis session today. Reports generalized weakness, and mental cloudiness, denies nausea, or vomiting. Denies shortness of breath or chest pain. - Exam Vitals: Temp Pulse Resp BP Pulse Ox 98.1 F 80 20 131/65 99 11/27/18 08:25 11/27/18 07:27 11/27/18 08:25 11/27/18 10:55 11/27/18 07:27 Exam: Vitals: Reviewed. General: Alert and oriented x4. In mild distress due to generalized weakness Skin: right internal jugular vein permacath HEENT: dry mucus membrane, EOM, pupils equal, round and reactive. Cardiovascular: RRR, normal S1 & S2, no rubs, murmurs or gallops. Lungs: CTA b/l, no wheezes or crackles. Abdomen: Soft, non-tender, no rigidity. Extremities: No deformity, no edema or tenderness, no joint swelling or clubbing. Neurological: Normal cognition and motor skills. Rest of the physical exam is non contributory - Assessment and Plan (1) CAD (coronary artery disease) Current Visit: Yes Status: Chronic Assessment and Plan: will resume plavix 75mg/PO daily tomorrow morning. Continue aspirin 81 mg by mouth daily. (2) Elevated troponin Current Visit: Yes Status: Resolved Assessment and Plan: Patient with elevated troponins suspected to be secondary to demand ischemia per cardiology Will continue to monitor on telemetry (3) COPD (chronic obstructive pulmonary disease) Current Visit: Yes Status: Chronic Assessment and Plan: Patient on acute exacerbation. Continue bronchodilators every 4 hours as scheduled, on Symbicort. Incentive spirometry. Continue oxygen by nasal cannula, titrate for O2 sat duration more than 92%. (4) Acute on chronic respiratory failure with hypoxia Current Visit: Yes Status: Resolved Assessment and Plan: plan of care as above (5) HTN (hypertension) Current Visit: Yes Status: Chronic Assessment and Plan: Blood pressure is well controlled patient is on atenolol 100 mg by mouth daily. Amlodipine And isosorbide 30 mg by mouth daily. (6) Hypothyroidism Current Visit: Yes Status: Chronic Assessment and Plan: Continue levothyroxine 75 mcg/po daily (7) Acute kidney injury superimposed on chronic kidney disease Current Visit: Yes Status: Acute Assessment and Plan: right IJ Permacath patient started on HD today avoid nephrotoxic medications nephrology recommendations appreciated (8) Anemia Current Visit: Yes Status: Chronic Assessment and Plan: patient with iron deficiency anemia. H&H of 6.9 and 21.7. patient refused blood transfusion due to her sikhism beliefs. IV iron ordered FOBT ordered on ferrous sulfate 325mg/PO BID. (9) Leukocytosis Current Visit: Yes Status: Acute Assessment and Plan: unclear etiology. patient received IV steroids. No clear source of infection. DVT Prophylaxis: On heparin subcutaneous twice a day. - Summary of Assessment and Plan Summary of Assessment and Plan: patient to remain in the hospital due to BJ, started on HD today. - Time Spent with Patient Total time spent is greater than 50% in coordination of care (as documented) at patient's floor/unit and/or counseling patient: Greater than 35 minutes (45) Plan of Care Discussed with: patient (and the nurse.) Internal Medicine: Result - Labs CBC & Chem 7: 11/27/18 03:46 11/27/18 03:46 Labs: Short CBC 11/27/18 Range/Units 03:46 WBC 13.0 H (4.3-11.1) K/mcL Hgb 6.9 L (11.5-15.4) g/dL Hct 21.7 L (35.3-44.9) % Plt Count 257 (140-400) K/mcL BMP 11/27/18 03:46 Sodium 132 L Potassium 3.7 Chloride 93 L Carbon Dioxide 31 H BUN 39 H Creatinine 4.42 H Glucose 94 Calcium 8.4 L - ABG Interpretation ABG results: ABG ABG pH 7.45 pH Units (7.32-7.45) 11/22/18 13:19 ABG pCO2 37 mmHg (35-45) 11/22/18 13:19 ABG pO2 41 mmHg (85-104) L* 11/22/18 13:19 ABG O2 Saturation 79 % (95-98) L 11/22/18 13:19 PT/INR, D-dimer PT 12.6 Seconds (9.4-12.1) H 11/18/18 11:06 Consult Discharge Plan - Plan Referrals: Topete,Patricia L, RECREATION COORDINATOR [Primary Care Provider] - 11/29/18 9:00 am (1) CAD (coronary artery disease) Qualifiers: Coronary Disease-Associated Artery/Lesion type: [place] artery [place] vs. transplanted heart: [place] heart Associated angina: without angina Qualified Code(s): I25.10 - Atherosclerotic heart disease of [place] coronary artery without angina pectoris (3) COPD (chronic obstructive pulmonary disease) Qualifiers: COPD type: unspecified COPD Qualified Code(s): J44.9 - Chronic obstructive pulmonary disease, unspecified (5) HTN (hypertension) Qualifiers: Hypertension type: essential hypertension Qualified Code(s): I10 - Essential (primary) hypertension (6) Hypothyroidism Qualifiers: Hypothyroidism type: unspecified Qualified Code(s): E03.9 - Hypothyroidism, unspecified (8) Anemia Qualifiers: Anemia type: iron deficiency Iron deficiency anemia type: unspecified iron deficiency Qualified Code(s): D50.9 - Iron deficiency anemia, unspecified (9) Leukocytosis Qualifiers: Leukocytosis type: unspecified Qualified Code(s): D72.829 - Elevated white blood cell count, unspecified
[2018-11-28] MEDS: Ipratropium/Albuterol Neb 3 ML IH SCH ×5 (03:41→19:56)
[2018-11-28] MEDS: *HR* Heparin 5,000 UNIT/ML VIAL SQ SCH ×2 (03:45→15:54)
[2018-11-28 04:19] LABS: Hematocrit 21.6 % (35.3-44.9); Hemoglobin 6.8 g/dL (11.5-15.4); Mean Corpuscular HGB Conc 31.5 g/dL (31.6-35.5); Mean Corpuscular Hemoglobin 27.3 pg (28.0-33.3); Mean Corpuscular Volume 86.7 fL (83.0-100.0); Mean Platelet Volume 9.7 fL (9.4-12.4); Platelet Count 276 K/mcL (140-400); Red Blood Count 2.49 M/mcL (3.82-4.97); Red Cell Distribution Width 14.4 % (11.5-14.5)
[2018-11-28 04:37] LABS: Calcium 8.4 mg/dL (8.6-10.3); Magnesium 1.8 mg/dL (1.6-2.6); Phosphorous 3.7 mg/dL (2.7-4.5); Potassium 3.7 mEq/L (3.5-5.1)
[2018-11-28] MEDS: Insulin LISPRO 300 UNITS/3 ML VIAL SQ SCH ×2 (07:02→11:50)
[2018-11-28] MEDS: Budesonide/Formoterol 80/4.5 MDI IH SCH ×2 (07:30→19:56)
[2018-11-28] MEDS: Aspirin Enteric Coated 81 MG Tablet PO SCH (09:08)
[2018-11-28] MEDS: amLODIPine 5 MG TABLET PO SCH (09:08)
[2018-11-28] MEDS: Isosorbide MONOnitrate (24 HR) 30 MG TAB.ER.24H PO SCH (09:08)
[2018-11-28] MEDS: *HR* LORazepam 1 MG TABLET PO PRN (09:13)
--- NOTE | 2018-11-28 13:53 | Internal Med Progress Note ---
Hospitalist Progress Note - Encounter Date of Encounter: 11/28/18 Time of Encounter: 13:51 - Subjective Interval History: I have seen and evaluated the patient at bedside. Patient reports feeling better today, stronger but reports feeling nauseous, denied vomiting. Denies chest pain or shortness of breath. - Exam Vitals: Temp Pulse Resp BP Pulse Ox 98.3 F 77 16 141/73 89 11/28/18 11:19 11/28/18 11:19 11/28/18 12:02 11/28/18 11:11/28/18 12:02 Exam: Vitals: Reviewed. General: Alert and oriented x4. In no acute distress Skin: right internal jugular vein permacath Cardiovascular: RRR, normal S1 & S2, no rubs, murmurs or gallops. Lungs: CTA b/l, no wheezes or crackles. Abdomen: Soft, non-tender, no rigidity. Extremities: No edema. Neurological: Normal cognition Rest of the physical exam is non contributory - Assessment and Plan (1) Acute on chronic respiratory failure with hypoxia Current Visit: Yes Status: Resolved Assessment and Plan: Patient in not acute distress, saturating more than 95% on 2 L of oxygen by nasal cannula. Continue bronchodilators every 4 hours as scheduled. Incentive spirometry. On Symbicort. (2) COPD (chronic obstructive pulmonary disease) Current Visit: Yes Status: Chronic Assessment and Plan: Plan of care as above. (3) CAD (coronary artery disease) Current Visit: Yes Status: Chronic Assessment and Plan: Continue aspirin 81 mg by mouth daily. Clopidogrel held in preparation of permacath placement (4) HTN (hypertension) Current Visit: Yes Status: Chronic Assessment and Plan: Blood pressure is well controlled. Patient is on atenolol and isosorbide. (5) Hypothyroidism Current Visit: Yes Status: Chronic Assessment and Plan: On levothyroxine 75 mcg/po daily (6) Acute kidney injury superimposed on chronic kidney disease Current Visit: Yes Status: Acute Assessment and Plan: right IJ Permacath Newly on HD, continue renal replacement therapy per nephrology recommendations avoid nephrotoxic medications nephrology recommendations appreciated (7) Anemia Current Visit: Yes Status: Chronic Assessment and Plan: H&H stable at 6.8&21.^. Patient started on Epoetin. IV iron ordered. will continue ferrous sulfate patient cannot receive PRBC due to her hoahaoism belief (8) Leukocytosis Current Visit: Yes Status: Acute Assessment and Plan: unclear etiology. patient received IV steroids. No clear source of infection. will continue to monitor clinically (9) Elevated troponin Current Visit: Yes Status: Resolved DVT Prophylaxis: Patient heparin 5000 units subcutaneous twice a day. - Summary of Assessment and Plan Summary of Assessment and Plan: Patient to remain in the hospital due to BJ, on HD. scheduled to have permacath placement on Sunday for outpatient HD. - Time Spent with Patient Total time spent is greater than 50% in coordination of care (as documented) at patient's floor/unit and/or counseling patient: Greater than 35 minutes (45) Internal Medicine: Result - Labs CBC & Chem 7: 11/28/18 03:49 11/28/18 03:49 Labs: Short CBC 11/28/18 Range/Units 03:49 WBC 12.8 H (4.3-11.1) K/mcL Hgb 6.8 L (11.5-15.4) g/dL Hct 21.6 L (35.3-44.9) % Plt Count 276 (140-400) K/mcL BMP 11/28/18 03:49 Sodium 134 L Potassium 3.7 Chloride 92 L Carbon Dioxide 33 H BUN 22 Creatinine 3.33 H Glucose 84 Calcium 8.4 L - ABG Interpretation ABG results: ABG ABG pH 7.45 pH Units (7.32-7.45) 11/22/18 13:19 ABG pCO2 37 mmHg (35-45) 11/22/18 13:19 ABG pO2 41 mmHg (85-104) L* 11/22/18 13:19 ABG O2 Saturation 79 % (95-98) L 11/22/18 13:19 PT/INR, D-dimer PT 12.6 Seconds (9.4-12.1) H 11/18/18 11:06 Consult Discharge Plan - Plan Referrals: Patricia Topete CNP [Primary Care Provider] - 11/29/18 9:00 am (2) COPD (chronic obstructive pulmonary disease) Qualifiers: COPD type: unspecified COPD Qualified Code(s): J44.9 - Chronic obstructive pulmonary disease, unspecified (3) CAD (coronary artery disease) Qualifiers: Coronary Disease-Associated Artery/Lesion type: [place] artery [place] vs. transplanted heart: [place] heart Associated angina: without angina Qualified Code(s): I25.10 - Atherosclerotic heart disease of [place] coronary artery without angina pectoris (4) HTN (hypertension) Qualifiers: Hypertension type: essential hypertension Qualified Code(s): I10 - Essential (primary) hypertension (5) Hypothyroidism Qualifiers: Hypothyroidism type: unspecified Qualified Code(s): E03.9 - Hypothyroidism, unspecified (7) Anemia Qualifiers: Anemia type: iron deficiency Iron deficiency anemia type: unspecified iron deficiency Qualified Code(s): D50.9 - Iron deficiency anemia, unspecified (8) Leukocytosis Qualifiers: Leukocytosis type: unspecified Qualified Code(s): D72.829 - Elevated white blood cell count, unspecified
[2018-11-28] MEDS ORDERED: SODIUM CHLORIDE 0.9% IVPB ONE (14:09)
[2018-11-28] MEDS ORDERED: IRON DEXTRAN COMPLEX IVPB ONE (14:09)
--- NOTE | 2018-11-28 15:20 | Event Note ---
Date of Encounter: 11/28/18 Time of Encounter: 15:19 - Nephrology Event Note Nephrology Chart Update The patient completed dialysis yesterday, and I would tentatively recommend the next treatment tomorrow (Sunday). My colleague Dr. Burr will be on-service tomorrow. Regarding her anemia, I recommend IV iron and EPO. She reported having catholic objections to blood transfusions. Discussed with the hospitalist. Thank you
[2018-11-28] MEDS: Ondansetron 4 MG/2 ML VIAL IVP PRN (15:54)
[2018-11-29] MEDS: Ipratropium/Albuterol Neb 3 ML IH SCH ×6 (00:14→20:17)
[2018-11-29] MEDS: *HR* Heparin 5,000 UNIT/ML VIAL SQ SCH ×2 (01:57→18:03)
[2018-11-29 05:17] LABS: Hematocrit 21.6 % (35.3-44.9); Hemoglobin 6.9 g/dL (11.5-15.4); Mean Corpuscular HGB Conc 31.9 g/dL (31.6-35.5); Mean Corpuscular Hemoglobin 27.2 pg (28.0-33.3); Mean Platelet Volume 9.5 fL (9.4-12.4); Platelet Count 309 K/mcL (140-400); Red Blood Count 2.54 M/mcL (3.82-4.97); Red Cell Distribution Width 14.2 % (11.5-14.5)
[2018-11-29 05:26] LABS: Calcium 8.7 mg/dL (8.6-10.3); Potassium 3.7 mEq/L (3.5-5.1)
[2018-11-29] MEDS: Budesonide/Formoterol 80/4.5 MDI IH SCH ×2 (07:37→20:17)
[2018-11-29] MEDS: Aspirin Enteric Coated 81 MG Tablet PO SCH (08:54)
[2018-11-29 10:50] LABS: Estimated Average Glucose 108 mg/dl; Hemoglobin A1C 5.4 %
[2018-11-29] MEDS ORDERED: *HR* Promethazine 25 MG/ML VIAL IVP ONE (10:58)
[2018-11-29] MEDS ORDERED: *HR* Promethazine 25 MG/ML VIAL ONE (11:05)
--- NOTE | 2018-11-29 14:34 | Internal Med Progress Note ---
Hospitalist Progress Note - Encounter Date of Encounter: 11/29/18 Time of Encounter: 14:32 - Subjective Interval History: I have seen and evaluated the patient at bedside. Patient reports generalized weakness. denies chest pain, shortness of breath or abdominal pain. denies nausea or vomiting. reports feeling cold. - Exam Vitals: Temp Pulse Resp BP Pulse Ox 99.1 F 79 18 138/71 92 11/29/18 07:10 11/29/18 07:10 11/29/18 07:38 11/29/18 07:10 11/29/18 07:38 Exam: Vitals: Reviewed. General: Alert and oriented x4. In mild distress due to generalized weakness Skin: right internal jugular vein permacath Cardiovascular: RRR, normal S1 & S2, no rubs, murmurs or gallops. Lungs: CTA b/l, no wheezes or crackles. Abdomen: Soft, non-tender, no rigidity. NABS in all 4 quadrants Extremities: No edema. Neurological: Normal cognition Rest of the physical exam is non contributory - Assessment and Plan (1) Acute on chronic respiratory failure with hypoxia Current Visit: Yes Status: Resolved Assessment and Plan: chest clear to auscultation. Patient in no distress. Continue oxygen by nasal cannula, titrate for O2 sat duration more than 92%. On Symbicort. Continue bronchodilators every 4 hours scheduled. (2) COPD (chronic obstructive pulmonary disease) Current Visit: Yes Status: Chronic Assessment and Plan: Plan of care as above. (3) CAD (coronary artery disease) Current Visit: Yes Status: Chronic Assessment and Plan: On aspirin 81 mg by mouth daily. Clopidogrel has been held, patient scheduled for permacath insertion on Sunday (4) HTN (hypertension) Current Visit: Yes Status: Chronic Assessment and Plan: Blood pressure is well controlled. Patient is on amlodipine 10 mg by mouth daily, and isosorbide 30 mg by mouth daily. (5) Hypothyroidism Current Visit: Yes Status: Chronic Assessment and Plan: On levothyroxine 75 mcg/po daily (6) Acute kidney injury superimposed on chronic kidney disease Current Visit: Yes Status: Acute Assessment and Plan: Renal replacement therapy per nephrology team. Avoid nephrotoxic medication. (7) Anemia Current Visit: Yes Status: Chronic Assessment and Plan: H&H stable. 6.9&21.6. FOBT ordered. patient received IV iron yesterday started on Epoetin (8) Leukocytosis Current Visit: Yes Status: Acute Assessment and Plan: unclear etiology. will continue to monitor clinically (9) Elevated troponin Current Visit: Yes Status: Resolved DVT Prophylaxis: On heparin 5000 units subcutaneous twice a day. - Summary of Assessment and Plan Summary of Assessment and Plan: Patient to remain in the hospital due to BJ, on HD. Pending permacath placement for outpatient HD. - Time Spent with Patient Total time spent is greater than 50% in coordination of care (as documented) at patient's floor/unit and/or counseling patient: Greater than 35 minutes (40) Plan of Care Discussed with: patient (and the nurse.) Internal Medicine: Result - Labs CBC & Chem 7: 11/29/18 04:45 11/29/18 04:45 Labs: Short CBC 11/29/18 Range/Units 04:45 WBC 11.5 H (4.3-11.1) K/mcL Hgb 6.9 L (11.5-15.4) g/dL Hct 21.6 L (35.3-44.9) % Plt Count 309 (140-400) K/mcL BMP 11/29/18 04:45 Sodium 133 L Potassium 3.7 Chloride 93 L Carbon Dioxide 30 H BUN 32 H Creatinine 4.50 H Glucose 88 Calcium 8.7 - ABG Interpretation ABG results: ABG ABG pH 7.45 pH Units (7.32-7.45) 11/22/18 13:19 ABG pCO2 37 mmHg (35-45) 11/22/18 13:19 ABG pO2 41 mmHg (85-104) L* 11/22/18 13:19 ABG O2 Saturation 79 % (95-98) L 11/22/18 13:19 PT/INR, D-dimer PT 12.6 Seconds (9.4-12.1) H 11/18/18 11:06 Consult Discharge Plan - Plan Referrals: Patricia Topete CNP [Primary Care Provider] - 11/29/18 9:00 am (2) COPD (chronic obstructive pulmonary disease) Qualifiers: COPD type: unspecified COPD Qualified Code(s): J44.9 - Chronic obstructive pulmonary disease, unspecified (3) CAD (coronary artery disease) Qualifiers: Coronary Disease-Associated Artery/Lesion type: [place] artery [place] vs. [place] ansplanted heart: [place] heart Associated angina: without angina Qualified Code(s): I25.10 - Atherosclerotic heart disease of [place] coronary artery without angina pectoris (4) HTN (hypertension) Qualifiers: Hypertension type: essential hypertension Qualified Code(s): I10 - Essential (primary) hypertension (5) Hypothyroidism Qualifiers: Hypothyroidism type: unspecified Qualified Code(s): E03.9 - Hypothyroidism, unspecified (7) Anemia Qualifiers: Anemia type: iron deficiency Iron deficiency anemia type: unspecified iron deficiency Qualified Code(s): D50.9 - Iron deficiency anemia, unspecified (8) Leukocytosis Qualifiers: Leukocytosis type: unspecified Qualified Code(s): D72.829 - Elevated white blood cell count, unspecified
[2018-11-29] MEDS: Isosorbide MONOnitrate (24 HR) 30 MG TAB.ER.24H PO SCH (18:02)
[2018-11-29] MEDS: amLODIPine 5 MG TABLET PO SCH (18:02)
[2018-11-29] MEDS: *HR* LORazepam 1 MG TABLET PO PRN (18:07)
--- NOTE | 2018-11-29 20:42 | Nephrology Progress Note ---
Date of Encounter: 11/29/18 Time of Encounter: 12:00 - Assessment and Plan (1) Acute kidney injury superimposed on chronic kidney disease Current Visit: Yes Status: Acute Scr noted at 4.5, hence no renal recovery yet. Continue HD with Uf as tolerated Continue to avoid nephrotoxins if possible UOP only documented at 150cc in the past 24hrs No further HD planned this weekend but will reassess daily Plan for permcath by sunday if no signs of renal recovery noted with outpatient HD placement as well (2) Anemia Current Visit: Yes Status: Chronic Hgb noted at 6.9 which is low but stable No transfusions as pt is [employer] in [place] Continue iron and epo Qualifiers: Anemia type: iron deficiency Iron deficiency anemia type: unspecified iron deficiency Qualified Code(s): D50.9 - Iron deficiency anemia, unspecified (3) COPD exacerbation Current Visit: No Status: Acute As per primary (4) CAD (coronary artery disease) Current Visit: Yes Status: Chronic Qualifiers: Coronary Disease-Associated Artery/Lesion type: [place] artery [place] vs. transplanted heart: [place] heart Associated angina: without angina Qualified Code(s): I25.10 - Atherosclerotic heart disease of [place] coronary artery without angina pectoris (5) HTN (hypertension) Current Visit: Yes Status: Chronic Qualifiers: Hypertension type: essential hypertension Qualified Code(s): I10 - Essential (primary) hypertension Subjective Principal diagnosis: BJ on CKD, mild trop Interval history: Interim events noted, pt seen and examined on HD complaining of nausea. at bedside with all questions answered Objective - Vital Signs Vital signs: Vital Signs Temp Pulse Resp BP Pulse Ox 11/29/18 20:18 16 96 11/29/18 18:47 98.9 F 76 17 125/65 90 11/29/18 16:05 99.0 F 80 18 146/68 90 11/29/18 15:56 16 93 11/29/18 14:00 97.8 F 18 165/78 11/29/18 13:45 137/79 11/29/18 13:30 148/77 11/29/18 13:15 136/75 11/29/18 13:00 133/77 11/29/18 12:45 156/76 11/29/18 12:30 163/79 11/29/18 12:15 137/73 11/29/18 12:00 153/80 05/03/19 11:45 156/78 11/29/18 11:30 161/78 11/29/18 11:15 150/76 11/29/18 11:00 141/77 11/29/18 10:45 147/71 11/29/18 10:30 149/77 11/29/18 10:15 97.7 F 18 133/69 11/29/18 07:38 18 92 11/29/18 07:10 99.1 F 79 16 138/71 94 11/29/18 04:01 99.1 F 78 17 145/72 90 11/29/18 03:53 15 90 11/29/18 00:14 16 91 11/28/18 23:28 98.4 F 78 17 133/71 94 Intake and Output 11/29/18 11/29/18 11/29/18 07:59 15:59 23:59 Intake Total 519.5 / 1239.5 720 / 1239.5 Output Total 750 / 2850 2100 / 2850 Balance -230.5 / -1610.5 -1380 / -1610.5 Intake: IV Fluids 519.5 / 519.5 Dexferrum 975 MG In 0.9 % 519.5 / 519.5 Sodium Chloride 500 ML @ 125 mls/hr IVPB ONCE ONE Rx#: [id number] Oral 120 / 120 Intake, Rinseback and Flushes 600 / 600 Output: Urine 0 / 0 Total Dialysis (HD) Output 2100 / 2100 Catheter 750 / 750 Other: Meal Breakfast Percent of Meal Consumed 0% Hemodialysis Net Fluid Removed 1500 (mL) - General Appearance General appearance: Present: chronically ill, fatigue EENT: Present: ATNC, mucous membranes moist Neck: Present: no JVD, supple Respiratory: Present: clear (ant bilat) Cardiology: Present: no edema, normal S1, normal S2 Dialysis Vascular Access: Venous Catheter (temp line) Gastrointestinal: Present: no tenderness, no guarding Integumentary: Present: warm and dry Neurologic: Present: no focal deficit Musculoskeletal: Present: no deformities Psychiatric: Present: mood/affect appropriate - Lab 11/29/18 04:45 11/29/18 04:45 Consult Discharge Plan - Plan Referrals: Patricia Topete CNP [Primary Care Provider] - 11/29/18 9:00 am
[2018-11-30] MEDS: Ipratropium/Albuterol Neb 3 ML IH SCH ×6 (00:22→20:01)
[2018-11-30] MEDS: *HR* Heparin 5,000 UNIT/ML VIAL SQ SCH ×2 (04:17→14:53)
[2018-11-30] MEDS: Budesonide/Formoterol 80/4.5 MDI IH SCH ×2 (07:29→20:02)
[2018-11-30] MEDS: Aspirin Enteric Coated 81 MG Tablet PO SCH (10:39)
[2018-11-30] MEDS: amLODIPine 5 MG TABLET PO SCH (10:39)
[2018-11-30] MEDS: Isosorbide MONOnitrate (24 HR) 30 MG TAB.ER.24H PO SCH (10:39)
[2018-11-30] MEDS: *HR* LORazepam 1 MG TABLET PO PRN (10:49)
--- NOTE | 2018-11-30 11:55 | Nephrology Progress Note ---
Date of Encounter: 11/30/18 Time of Encounter: 12:00 - Assessment and Plan (1) Acute kidney injury superimposed on chronic kidney disease Current Visit: Yes Status: Acute No new labs today noted but expect SCr to be improved after HD yesterday No HD planned this weekend but will monitor for signs of renal recovery Will plan to have permcath placed on sunday if still no signs of renal recovery Continue to avoid nephrotoxins if possible (2) Anemia Current Visit: Yes Status: Chronic Hgb noted at 6.9, fairly stable No transfusion of blood products due to jain beliefs Continue iron supplements and epo Qualifiers: Anemia type: iron deficiency Iron deficiency anemia type: unspecified iron deficiency Qualified Code(s): D50.9 - Iron deficiency anemia, unspecified (3) COPD exacerbation Current Visit: No Status: Acute As per primary (4) CAD (coronary artery disease) Current Visit: Yes Status: Chronic As per primary Qualifiers: Coronary Disease-Associated Artery/Lesion type: [place] artery [place] vs. transplanted heart: [place] heart Associated angina: without angina Qualified Code(s): I25.10 - Atherosclerotic heart disease of [place] coronary artery without angina pectoris (5) Pleural effusion Current Visit: Yes Status: Acute Subjective Principal diagnosis: BJ on CKD, mild trop Interval history: t seen and examined s/p HD yesterday, still complaining of nausea. Did not tolerate phernegan well. at bedside with all questions answered Objective - Vital Signs Vital signs: Vital Signs Temp Pulse Resp BP Pulse Ox 11/30/18 11:23 16 92 11/30/18 07:59 98.2 F 79 18 134/6 90 11/30/18 07:29 16 92 11/30/18 04:22 98.2 F 76 18 136/70 93 11/30/18 04:00 16 96 11/30/18 00:22 17 97 11/29/18 23:43 98.6 F 75 19 133/65 93 11/29/18 20:18 16 96 11/29/18 18:47 98.9 F 76 17 125/65 90 11/29/18 16:05 99.0 F 80 18 146/68 90 11/29/18 15:56 16 93 11/29/18 14:00 97.8 F 18 165/78 11/29/18 13:45 137/79 11/29/18 13:30 148/77 11/29/18 13:15 136/75 11/29/18 13:00 133/77 11/29/18 12:45 156/76 11/29/18 12:30 163/79 11/29/18 12:15 137/73 11/29/18 12:00 153/80 Intake and Output 11/29/18 11/30/18 11/30/18 23:59 07:59 15:59 Intake Total 0 / 1239.5 200 / 320 120 / 320 Output Total 0 / 2850 300 / 300 Balance 0 / -1610.5 200 / 20 -180 / 20 Intake: Oral 0 / 120 200 / 320 120 / 320 Output: Urine 0 / 0 Catheter 300 / 300 Other: Meal Breakfast Percent of Meal Consumed 10% - General Appearance General appearance: Present: chronically ill, fatigue EENT: Present: ATNC, mucous membranes moist Neck: Present: no JVD, supple Respiratory: Present: clear Cardiology: Present: no edema, normal S1, normal S2 Dialysis Vascular Access: Venous Catheter (temp line) Gastrointestinal: Present: no tenderness, no guarding Integumentary: Present: warm and dry Neurologic: Present: no focal deficit Musculoskeletal: Present: no deformities Psychiatric: Present: cooperative - Lab 12/01/18 04:00 12/01/18 04:00 Consult Discharge Plan - Plan Referrals: Patricia Topete CNP [Primary Care Provider] - 11/29/18 9:00 am
--- NOTE | 2018-11-30 12:41 | Internal Med Progress Note ---
Hospitalist Progress Note - Encounter Date of Encounter: 11/30/18 Time of Encounter: 12:38 - Subjective Interval History: I have seen and evaluated the patient at bedside. Patient reports feeling weak, also reports light headedness with ambulation, denies shortness of breath, chest pain, nausea, vomiting or abdominal pain. - Exam Vitals: Temp Pulse Resp BP Pulse Ox 98.1 F 77 20 146/72 97 11/30/18 11:51 11/30/18 11:51 11/30/18 11:51 11/30/18 11:51 11/30/18 11:51 Exam: Vitals: Reviewed. General: Alert and oriented x4. In mild distress due to generalized weakness Skin: right internal jugular vein permacath Cardiovascular: RRR, normal S1 & S2, no rubs, murmurs or gallops. Lungs: CTA b/l, no wheezes or crackles. Abdomen: Soft, non-tender, no rigidity. NABS in all 4 quadrants Extremities: No edema. Neurological: Normal cognition. no focal neurological deficits Rest of the physical exam is non contributory - Assessment and Plan (1) Acute on chronic respiratory failure with hypoxia Current Visit: Yes Status: Resolved Assessment and Plan: patient in no distress. on 2 litters O2 by nasal cannula. on bronchodilators PRN Q4RT and symbicort. (2) COPD (chronic obstructive pulmonary disease) Current Visit: Yes Status: Chronic Assessment and Plan: plan of care as above (3) CAD (coronary artery disease) Current Visit: Yes Status: Chronic Assessment and Plan: on aspirin will continue to hold clopidogrel. patient scheduled for permacath placement on Sunday (4) HTN (hypertension) Current Visit: Yes Status: Chronic Assessment and Plan: Blood pressure has been well controlled. Patient is on atenolol, amlodipine, and isosorbide. (5) Hypothyroidism Current Visit: Yes Status: Chronic Assessment and Plan: On levothyroxine 75 mcg/PO daily (6) Acute kidney injury superimposed on chronic kidney disease Current Visit: Yes Status: Acute Assessment and Plan: Renal replacement therapy per nephrology team. Avoid nephrotoxic medication. patient scheduled for permacath placement on Sunday in preparation for outpatient HD (7) Anemia Current Visit: Yes Status: Chronic Assessment and Plan: H&H stable. 6.9&21.6. FOBT ordered but patient has not had a BM. On Epoetin per nephrology recommendations continue ferrous sulfate patient unable to received PRBCs due to confucianist belief (8) Leukocytosis Current Visit: Yes Status: Acute Assessment and Plan: Most likely reactive. No signs of active infection. We will continue to monitor clinically. (9) Elevated troponin Current Visit: Yes Status: Resolved (10) Constipation Current Visit: Yes Status: Acute Assessment and Plan: patient reports not having a BM for more than 10 days. she has a Hx of chronic constipation. Patient denies abdominal pain, nausea or vomiting. Patient is on Dulcolax and MiraLAX. Lactulose 15 g by mouth twice a day added. DVT Prophylaxis: On heparin subcutaneous. - Summary of Assessment and Plan Summary of Assessment and Plan: Patient to remain in the hospital due to acute kidney injury, scheduled for permacath placement on Sunday, on preparation for outpatient dialysis. - Time Spent with Patient Total time spent is greater than 50% in coordination of care (as documented) at patient's floor/unit and/or counseling patient: Greater than 35 minutes (40) Plan of Care Discussed with: patient (and the nurse.) Internal Medicine: Result - Labs CBC & Chem 7: 11/29/18 04:45 11/29/18 04:45 - ABG Interpretation ABG results: ABG ABG pH 7.45 pH Units (7.32-7.45) 11/22/18 13:19 ABG pCO2 37 mmHg (35-45) 11/22/18 13:19 ABG pO2 41 mmHg (85-104) L* 11/22/18 13:19 ABG O2 Saturation 79 % (95-98) L 11/22/18 13:19 PT/INR, D-dimer PT 12.6 Seconds (9.4-12.1) H 11/18/18 11:06 Consult Discharge Plan - Plan Referrals: Efrem,Patricia Dick CNP [Primary Care Provider] - 11/29/18 9:00 am (2) COPD (chronic obstructive pulmonary disease) Qualifiers: COPD type: unspecified COPD Qualified Code(s): J44.9 - Chronic obstructive pulmonary disease, unspecified (3) CAD (coronary artery disease) Qualifiers: Coronary Disease-Associated Artery/Lesion type: [place] artery [place] vs. transplanted heart: [place] heart Associated angina: without angina Qualified Code(s): I25.10 - Atherosclerotic heart disease of [place] coronary artery without angina pectoris (4) HTN (hypertension) Qualifiers: Hypertension type: essential hypertension Qualified Code(s): I10 - Essential (primary) hypertension (5) Hypothyroidism Qualifiers: Hypothyroidism type: unspecified Qualified Code(s): E03.9 - Hypothyroidism, unspecified (7) Anemia Qualifiers: Anemia type: iron deficiency Iron deficiency anemia type: unspecified iron de ficiency Qualified Code(s): D50.9 - Iron deficiency anemia, unspecified (8) Leukocytosis Qualifiers: Leukocytosis type: unspecified Qualified Code(s): D72.829 - Elevated white blood cell count, unspecified (10) Constipation Qualifiers: Constipation type: unspecified constipation type Qualified Code(s): K59.00 - Constipation, unspecified
[2018-11-30] MEDS: Ondansetron 4 MG/2 ML VIAL IVP PRN (13:03)
[2018-11-30] MEDS: Lactulose Oral Soln 20 GM/30 ML UDC PO SCH ×2 (13:04→20:39)
[2018-11-30] MEDS: *HR* LORazepam 1 MG TABLET PO SCH ×2 (14:53→20:39)
[2018-12-01] MEDS: Ipratropium/Albuterol Neb 3 ML IH SCH ×6 (00:12→19:48)
[2018-12-01] MEDS: *HR* Heparin 5,000 UNIT/ML VIAL SQ SCH ×2 (04:51→17:39)
[2018-12-01 05:15] LABS: Hemoglobin 7.1 g/dL (11.5-15.4); Mean Corpuscular HGB Conc 32.3 g/dL (31.6-35.5); Mean Corpuscular Hemoglobin 27.6 pg (28.0-33.3); Mean Corpuscular Volume 85.6 fL (83.0-100.0); Mean Platelet Volume 9.3 fL (9.4-12.4); Platelet Count 328 K/mcL (140-400); Red Blood Count 2.57 M/mcL (3.82-4.97); Red Cell Distribution Width 14.4 % (11.5-14.5)
[2018-12-01 05:34] LABS: Potassium 3.9 mEq/L (3.5-5.1)
[2018-12-01] MEDS: Budesonide/Formoterol 80/4.5 MDI IH SCH ×2 (07:28→19:48)
[2018-12-01] MEDS: Lactulose Oral Soln 20 GM/30 ML UDC PO SCH ×2 (10:07→21:56)
[2018-12-01] MEDS: amLODIPine 5 MG TABLET PO SCH (10:07)
[2018-12-01] MEDS: *HR* LORazepam 1 MG TABLET PO SCH ×3 (10:07→21:56)
[2018-12-01] MEDS: Aspirin Enteric Coated 81 MG Tablet PO SCH (10:07)
[2018-12-01] MEDS: Isosorbide MONOnitrate (24 HR) 30 MG TAB.ER.24H PO SCH (10:07)
[2018-12-01] MEDS: Ondansetron 4 MG/2 ML VIAL IVP PRN (12:08)
--- NOTE | 2018-12-01 12:17 | Internal Med Progress Note ---
Hospitalist Progress Note - Encounter Date of Encounter: 12/01/18 Time of Encounter: 12:15 - Subjective Interval History: I have seen and evaluated the patient at bedside. patient reports feeling nauseated, denies vomiting, reports generalized weakness. denies chest pain or abdominal pain - Exam Vitals: Temp Pulse Resp BP Pulse Ox 98.2 F 78 18 152/72 93 12/01/18 07:10 12/01/18 07:10 12/01/18 11:16 12/01/18 07:10 12/01/18 11:16 Exam: Vitals: Reviewed. General: Alert and oriented x4. In mild distress due to nause Skin: right internal jugular vein permacath Cardiovascular: RRR, normal S1 & S2, no rubs, murmurs or gallops. Lungs: CTA b/l, no wheezes or crackles. Abdomen: Soft, non-tender, no rigidity. NABS in all 4 quadrants Extremities: No edema. Neurological: No focal neurological deficits Rest of the physical exam is non contributory - Assessment and Plan (1) Acute on chronic respiratory failure with hypoxia Current Visit: Yes Status: Resolved Assessment and Plan: chest CTA. On oxygen by nasal cannula, titrate for O2 sat duration more than 92%. Continue bronchodilators and incentive spirometry. On Symbicort. (2) COPD (chronic obstructive pulmonary disease) Current Visit: Yes Status: Chronic Assessment and Plan: Plan of care as above. (3) CAD (coronary artery disease) Current Visit: Yes Status: Chronic Assessment and Plan: Continue aspirin 81 mg by mouth daily. Plavix on hold. (4) HTN (hypertension) Current Visit: Yes Status: Chronic Assessment and Plan: Blood pressures well controlled. We will continue current antihypertensive medication, on amlodipine, isosorbide, and atenolol. (5) Hypothyroidism Current Visit: Yes Status: Chronic Assessment and Plan: On levothyroxine 75 mcg/PO daily (6) Acute kidney injury superimposed on chronic kidney disease Current Visit: Yes Status: Acute Assessment and Plan: Renal replacement therapy per nephrology team recommendations. scheduled for permacath insertion tomorrow (7) Anemia Current Visit: Yes Status: Chronic Assessment and Plan: H&H stable with slight improvement on H&H today. on Epoetin and ferrous sulfate. (8) Leukocytosis Current Visit: Yes Status: Acute Assessment and Plan: patient with no signs of acute infections. will continue to monitor clinically (9) Elevated troponin Current Visit: Yes Status: Resolved (10) Constipation Current Visit: Yes Status: Acute Assessment and Plan: patient reports she had a small bowel movement yesterday. Continue Dulcolax, lactulose and MiraLAX DVT Prophylaxis: on heparin 5000 units subQ BID - Summary of Assessment and Plan Summary of Assessment and Plan: Patient to remain in the hospital due to acute kidney injury, scheduled for permacath placement tomorrow, on preparation for outpatient dialysis. - Time Spent with Patient Total time spent is greater than 50% in coordination of care (as documented) at patient's floor/unit and/or counseling patient: Greater than 35 minutes (40) Plan of Care Discussed with: patient (her the nurse) Internal Medicine: Result - Labs CBC & Chem 7: 12/01/18 04:00 12/01/18 04:00 Labs: Short CBC 12/01/18 Range/Units 04:00 WBC 11.8 H (4.3-11.1) K/mcL Hgb 7.1 L (11.5-15.4) g/dL Hct 22.0 L (35.3-44.9) % Plt Count 328 (140-400) K/mcL BMP 12/01/18 04:00 Sodium 131 L Potassium 3.9 Chloride 95 L Carbon Dioxide 25 BUN 24 H Creatinine 4.57 H Glucose 85 Calcium 9.0 - ABG Interpretation ABG results: ABG ABG pH 7.45 pH Units (7.32-7.45) 11/22/18 13:19 ABG pCO2 37 mmHg (35-45) 11/22/18 13:19 ABG pO2 41 mmHg (85-104) L* 11/22/18 13:19 ABG O2 Saturation 79 % (95-98) L 11/22/18 13:19 PT/INR, D-dimer PT 12.6 Seconds (9.4-12.1) H 11/18/18 11:06 Consult Discharge Plan - Plan Referrals: Patricia Topete CNP [Primary Care Provider] - 11/29/18 9:00 am (2) COPD (chronic obstructive pulmonary disease) Qualifiers: COPD type: unspecified COPD Qualified Code(s): J44.9 - Chronic obstructive pulmonary disease, unspecified (3) CAD (coronary artery disease) Qualifiers: Coronary Disease-Associated Artery/Lesion type: [place] artery [place] vs. transplanted heart: [place] heart Associated angina: without angina Qualified Code(s): I25.10 - Atherosclerotic heart disease of [place] coronary artery without angina pectoris (4) HTN (hypertension) Qualifiers: Hypertension type: essential hypertension Qualified Code(s): I10 - Essential (primary) hypertension (5) Hypothyroidism Qualifiers: Hypothyroidism type: unspecified Qualified Code(s): E03.9 - Hypothyroidism, unspecified (7) Anemia Qualifiers: Anemia type: iron deficiency Iron deficiency anemia type: unspecified iron deficiency Qualified Code(s): D50.9 - Iron deficiency anemia, unspecified (8) Leukocytosis Qualifiers: Leukocytosis type: unspecified Qualified Code(s): D72.829 - Elevated white blood cell count, unspecified (10) Constipation Qualifiers: Constipation type: unspecified constipation type Qualified Code(s): K59.00 - Constipation, unspecified
--- NOTE | 2018-12-01 18:29 | Nephrology Progress Note ---
Date of Encounter: 12/01/18 Time of Encounter: 12:00 - Assessment and Plan (1) Acute kidney injury superimposed on chronic kidney disease Current Visit: Yes Status: Acute SCr noted worse again to the level of sunday prior to HD, hence no renal recovery so far Will plan to permcath placed for tomorrow if still no signs of renal recovery NPO after MN for possible permcath Continue to avoid nephrotoxins if possible (2) Anemia Current Visit: Yes Status: Chronic Hgb noted at 7.1, stable No transfusion of blood products due to adventism beliefs Continue iron supplements and epo Qualifiers: Anemia type: iron deficiency Iron deficiency anemia type: unspecified iron deficiency Qualified Code(s): D50.9 - Iron deficiency anemia, unspecified (3) COPD exacerbation Current Visit: No Status: Acute As per primary (4) Pleural effusion Current Visit: Yes Status: Acute Stable Subjective Principal diagnosis: BJ on CKD, mild trop Interval history: Pt seen and examined with no new complaints. at bedside with all questions answered Objective - Vital Signs Vital signs: Vital Signs Temp Pulse Resp BP Pulse Ox 12/01/18 16:24 98.1 F 77 19 135/71 92 12/01/18 11:16 18 93 12/01/18 07:28 18 97 12/01/18 07:10 98.2 F 78 17 152/72 96 12/01/18 04:27 98.8 F 77 17 152/75 95 12/01/18 04:15 17 96 12/01/18 00:12 18 96 11/30/18 23:32 98.2 F 75 16 148/70 93 11/30/18 20:01 16 93 11/30/18 19:11 98.2 F 73 16 142/75 94 Intake and Output 12/01/18 12/01/18 12/01/18 07:59 15:59 23:59 Intake Total 360 / 360 Output Total 500 / 700 200 / 700 Balance -500 / -340 360 / -340 -200 / -340 Intake: Oral 360 / 360 Output: Catheter 500 / 700 200 / 700 Other: Meal Lunch Percent of Meal Consumed 85% - General Appearance General appearance: Present: chronically ill, fatigue EENT: Present: ATNC, mucous membranes moist Neck: Present: no JVD, supple Cardiology: Present: no edema, normal S1, normal S2 Dialysis Vascular Access: Venous Catheter (temp line) Gastrointestinal: Present: no tenderness, no guarding Integumentary: Present: warm and dry Neurologic: Present: no focal deficit Musculoskeletal: Present: no deformities Psychiatric: Present: mood/affect appropriate, cooperative - Lab 12/01/18 04:00 12/01/18 04:00 Consult Discharge Plan - Plan Referrals: Patricia Topete CNP [Primary Care Provider] - 11/29/18 9:00 am
[2018-12-02] MEDS: Ipratropium/Albuterol Neb 3 ML IH SCH ×6 (00:26→19:57)
[2018-12-02 03:13] LABS: Hematocrit 21.8 % (35.3-44.9); Hemoglobin 6.9 g/dL (11.5-15.4); Mean Corpuscular HGB Conc 31.7 g/dL (31.6-35.5); Mean Corpuscular Hemoglobin 26.8 pg (28.0-33.3); Mean Corpuscular Volume 84.8 fL (83.0-100.0); Mean Platelet Volume 9.1 fL (9.4-12.4); Platelet Count 336 K/mcL (140-400); Red Blood Count 2.57 M/mcL (3.82-4.97); Red Cell Distribution Width 14.8 % (11.5-14.5)
[2018-12-02 03:26] LABS: Potassium 4.1 mEq/L (3.5-5.1)
[2018-12-02] MEDS: *HR* Heparin 5,000 UNIT/ML VIAL SQ SCH ×2 (05:56→18:14)
[2018-12-02] MEDS: Budesonide/Formoterol 80/4.5 MDI IH SCH ×2 (07:54→19:57)
[2018-12-02] MEDS: amLODIPine 5 MG TABLET PO SCH (08:11)
[2018-12-02] MEDS: Aspirin Enteric Coated 81 MG Tablet PO SCH (08:11)
[2018-12-02] MEDS: *HR* LORazepam 1 MG TABLET PO SCH ×3 (08:11→20:35)
[2018-12-02] MEDS: Isosorbide MONOnitrate (24 HR) 30 MG TAB.ER.24H PO SCH (08:11)
[2018-12-02] MEDS: Lactulose Oral Soln 20 GM/30 ML UDC PO SCH ×2 (08:12→20:53)
--- NOTE | 2018-12-02 08:24 | Pre-Sedation Evaluation ---
Pre-sedation evaluation - Pre-sedation checklist Procedure: [facility] Recent Vitals: Last Vital Signs Temp 98.2 F 12/02/18 06:50 Pulse 111 12/02/18 06:50 Resp 18 12/02/18 07:56 BP 135/77 12/02/18 06:50 Pulse Ox 95 12/02/18 07:56 H&P (including ROS) documented in medical record: Yes Previous reaction to sedatives/anesthetics: No Dietary Status: NPO after Midnight Dentition: No loose teeth or bridges ASA Classification *see protocol: CLASS II-Mild systemic disease Plan of Care: Pt appropriate candidate for procedure/moderate/conscious sedation, Risks/benefits of procedure/sedation discussed w/ patient/family
[2018-12-02] MEDS ORDERED: Clindamycin 600 MG/50 ML 600 MG/50 ML IV.SOLN IVPB ONE (08:26)
[2018-12-02] MEDS ORDERED: *HR* Midazolam HCl 2 MG/2 ML VIAL IVP ONE (08:26)
[2018-12-02] MEDS ORDERED: *HR* FentaNYL (PF) 100 MCG/2 ML VIAL IVP ONE (08:26)
[2018-12-02] MEDS ORDERED: 0.9 % Sodium Chloride 1,000 ML ONE (08:40)
[2018-12-02] MEDS ORDERED: 0.9 % Sodium Chloride 250 ML IVC PRN (08:56)
[2018-12-02] MEDS ORDERED: *HR* Heparin 10,000 UNIT/10 ML VIAL IV PRN (08:56)
[2018-12-02] MEDS ORDERED: 0.9 % Sodium Chloride 1,000 ML PRIME SCH (09:00)
--- NOTE | 2018-12-02 09:45 | Electrocardiograph Report ---
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
[2018-12-02] MEDS: Ondansetron 4 MG/2 ML VIAL IVP PRN ×2 (11:55→20:30)
[2018-12-02] MEDS ORDERED: Heparin 1,000 UNITS/500 mL 500 ML ONE (13:05)
[2018-12-02] MEDS ORDERED: 0.9 % Sodium Chloride 500 ML ONE (13:54)
--- NOTE | 2018-12-02 14:09 | Internal Med Progress Note ---
Hospitalist Progress Note - Encounter Date of Encounter: 12/02/18 Time of Encounter: 14:05 - Subjective Interval History: I have seen and evaluated the patient at bedside. Report feeling weak, but stated that she wants to go home with PT/OT whenever she is ready for discharge. denies chest pain, nausea, vomiting or shortness of breath. - Exam Vitals: Temp Pulse Resp BP Pulse Ox 98.2 F 111 18 135/77 95 12/02/18 06:50 12/02/18 06:50 12/02/18 07:56 12/02/18 06:50 12/02/18 07:56 Exam: Vitals: Reviewed. General: Alert and oriented x4. In mild distress due to generalized weakness Skin: right internal jugular vein permacath Cardiovascular: RRR, normal S1 & S2, no rubs, murmurs or gallops. Lungs: CTA b/l, no wheezes or crackles. Abdomen: Soft, non-tender, no rigidity. NABS in all 4 quadrants Extremities: No edema. Neurological: No focal neurological deficits Rest of the physical exam is non contributory - Assessment and Plan (1) Acute on chronic respiratory failure with hypoxia Current Visit: Yes Status: Resolved Assessment and Plan: no wheezing. on bronchodilators Q4RT PRN. incentive spirometry. O2 by nasal cannula, titrate for O2sat >92%. On Symbicort. (2) COPD (chronic obstructive pulmonary disease) Current Visit: Yes Status: Chronic Assessment and Plan: plan of care as above (3) CAD (coronary artery disease) Current Visit: Yes Status: Chronic Assessment and Plan: on aspirin 81mg/PO daily. will resume plavix after permacath insertion. (4) HTN (hypertension) Current Visit: Yes Status: Chronic Assessment and Plan: Blood pressures well controlled. Patient is on amlodipine 10 mg by mouth daily, atenolol 100 mg by mouth daily and isosorbide 30 mg by mouth daily. (5) Hypothyroidism Current Visit: Yes Status: Chronic Assessment and Plan: Continue levothyroxine 75 mcg/PO daily (6) Acute kidney injury superimposed on chronic kidney disease Current Visit: Yes Status: Acute Assessment and Plan: Patient is scheduled for a permacath insertion today. guest services associate working on outpatient dialysis chair. (7) Anemia Current Visit: Yes Status: Chronic Assessment and Plan: H&H is stable raging in the low 7. patient received IV iron a couple of days ago and was started on Epoetin. refused blood products due to scientologist beliefs (8) Leukocytosis Current Visit: Yes Status: Resolved (9) Elevated troponin Current Visit: Yes Status: Resolved (10) Constipation Current Visit: Yes Status: Acute Assessment and Plan: Patient on Dulcolax, MiraLAX and lactulose. Titrate for 1-2 bowel movements per day DVT Prophylaxis: Heparin subcutaneous. - Summary of Assessment and Plan Summary of Assessment and Plan: Asymptomatic remain in the hospital pending outpatient hemodialysis chair. - Time Spent with Patient Total time spent is greater than 50% in coordination of care (as documented) at patient's floor/unit and/or counseling patient: Greater than 35 minutes (45) Plan of Care Discussed with: patient (the nurse) Internal Medicine: Result - Labs CBC & Chem 7: 12/02/18 02:59 12/02/18 02:59 Labs: Short CBC 12/02/18 Range/Units 02:59 WBC 11.1 (4.3-11.1) K/mcL Hgb 6.9 L (11.5-15.4) g/dL Hct 21.8 L (35.3-44.9) % Plt Count 336 (140-400) K/mcL BMP 12/02/18 02:59 Sodium 129 L Potassium 4.1 Chloride 95 L Carbon Dioxide 25 BUN 27 H Creatinine 5.44 H Glucose 88 Calcium 9.0 - ABG Interpretation ABG results: ABG ABG pH 7.45 pH Units (7.32-7.45) 11/22/18 13:19 ABG pCO2 37 mmHg (35-45) 11/22/18 13:19 ABG pO2 41 mmHg (85-104) L* 11/22/18 13:19 ABG O2 Saturation 79 % (95-98) L 11/22/18 13:19 PT/INR, D-dimer PT 12.6 Seconds (9.4-12.1) H 11/18/18 11:06 Consult Discharge Plan - Plan Referrals: Patricia Topete CNP [Primary Care Provider] - 11/29/18 9:00 am (2) COPD (chronic obstructive pulmonary disease) Qualifiers: COPD type: unspecified COPD Qualified Code(s): J44.9 - Chronic obstructive pulmonary disease, unspecified (3) CAD (coronary artery disease) Qualifiers: Coronary Disease-Associated Artery/Lesion type: [place] artery [place] vs. transplanted heart: [place] heart Associated angina: without angina Qualified Code(s): I25.10 - Atherosclerotic heart disease of [place] coronary artery without angina pectoris (4) HTN (hypertension) Qualifiers: Hypertension type: essential hypertension Qualified Code(s): I10 - Essential (primary) hypertension (5) Hypothyroidism Qualifiers: Hypothyroidism type: unspecified Qualified Code(s): E03.9 - Hypothyroidism, unspecified (7) Anemia Qualifiers: Anemia type: iron deficiency Iron deficiency anemia type: unspecified iron deficiency Qualified Code(s): D50.9 - Iron deficiency anemia, unspecified (8) Leukocytosis Qualifiers: Leukocytosis type: unspecified Qualified Code(s): D72.829 - Elevated white blood cell count, unspecified (10) Constipation Qualifiers: Constipation type: unspecified constipation type Qualified Code(s): K59.00 - Constipation, unspecified
--- NOTE | 2018-12-02 17:26 | Nephrology Progress Note ---
Date of Encounter: 12/02/18 - Assessment and Plan (1) Acute kidney injury superimposed on chronic kidney disease Current Visit: Yes Status: Acute (2) Anemia Current Visit: Yes Status: Chronic Qualifiers: Anemia type: iron deficiency Iron deficiency anemia type: unspecified iron deficiency Qualified Code(s): D50.9 - Iron deficiency anemia, unspecified (3) COPD exacerbation Current Visit: No Status: Acute (4) CAD (coronary artery disease) Current Visit: Yes Status: Chronic Qualifiers: Coronary Disease-Associated Artery/Lesion type: [place] artery [place] vs. transplanted heart: [place] heart Associated angina: without angina Qualified Code(s): I25.10 - Atherosclerotic heart disease of [place] coronary artery without angina pectoris (5) Pleural effusion Current Visit: Yes Status: Acute Subjective Principal diagnosis: BJ on CKD, mild trop Interval history: t seen and examined s/p HD yesterday, still complaining of nausea. Did not to lerate phernegan well. at bedside with all questions answered Objective - Vital Signs Vital signs: Vital Signs Temp Pulse Resp BP Pulse Ox 12/02/18 16:41 16 99 12/02/18 15:05 80 14 124/69 94 12/02/18 14:13 84 32 129/72 95 12/02/18 14:07 84 20 135/70 94 12/02/18 13:00 120/70 12/02/18 12:45 118/72 12/02/18 12:30 116/70 12/02/18 12:15 108/69 12/02/18 12:00 99/59 12/02/18 11:45 127/71 12/02/18 11:30 120/70 12/02/18 11:15 99/59 12/02/18 11:00 116/58 12/02/18 10:45 128/79 12/02/18 10:30 132/78 12/02/18 10:15 133/87 12/02/18 10:00 145/89 12/02/18 09:45 146/86 12/02/18 09:30 97.8 F 16 130/83 12/02/18 07:56 18 95 12/02/18 06:50 98.2 F 111 16 135/77 96 12/02/18 04:31 98.4 F 50 16 149/62 96 12/02/18 04:13 16 94 12/02/18 00:26 16 97 12/01/18 23:39 98.5 F 82 16 148/63 94 12/01/18 19:48 16 95 12/01/18 18:38 98.2 F 77 17 145/73 97 Intake and Output 12/02/18 12/02/18 12/02/18 07:59 15:59 23:59 Intake Total 600 / 720 120 / 720 Output Total 200 / 200 Balance 400 / 520 120 / 520 Intake: Oral 0 / 120 120 / 120 Intake, Rinseback and Flushes 600 / 600 Output: Catheter 200 / 200 Urethral ([place]) 50 / 50 Other: Meal Lunch NPO Dinner Percent of Meal Consumed 0% Weight 60.9 kg Hemodialysis Net Fluid Removed 2570 (mL) Patient Weight 12/02/18 23:59 Weight 60.9 kg - Lab 12/02/18 02:59 12/02/18 02:59 Consult Discharge Plan - Plan Referrals: Patricia Topete CNP [Primary Care Provider] - 11/29/18 9:00 am
[2018-12-02] MEDS: Metoclopramide 10 MG/10 ML UD.LIQ PO PRN (20:34)
[2018-12-03] MEDS: Ipratropium/Albuterol Neb 3 ML IH SCH ×5 (00:14→16:17)
[2018-12-03] MEDS: *HR* Heparin 5,000 UNIT/ML VIAL SQ SCH (06:14)
[2018-12-03 06:50] LABS: Hematocrit 23.7 % (35.3-44.9); Hemoglobin 7.6 g/dL (11.5-15.4); Mean Corpuscular HGB Conc 32.1 g/dL (31.6-35.5); Mean Corpuscular Hemoglobin 27.8 pg (28.0-33.3); Mean Corpuscular Volume 86.8 fL (83.0-100.0); Mean Platelet Volume 9.5 fL (9.4-12.4); Platelet Count 327 K/mcL (140-400); Red Blood Count 2.73 M/mcL (3.82-4.97); Red Cell Distribution Width 15.5 % (11.5-14.5)
[2018-12-03] MEDS: *HR* LORazepam 1 MG TABLET PO SCH ×2 (07:30→14:55)
[2018-12-03] MEDS: Isosorbide MONOnitrate (24 HR) 30 MG TAB.ER.24H PO SCH (07:30)
[2018-12-03] MEDS: Lactulose Oral Soln 20 GM/30 ML UDC PO SCH (07:31)
[2018-12-03] MEDS: amLODIPine 5 MG TABLET PO SCH (07:31)
[2018-12-03] MEDS: Aspirin Enteric Coated 81 MG Tablet PO SCH (07:31)
[2018-12-03 07:32] LABS: Calcium 8.9 mg/dL (8.6-10.3); Potassium 3.8 mEq/L (3.5-5.1)
[2018-12-03] MEDS: Budesonide/Formoterol 80/4.5 MDI IH SCH (07:35)
[2018-12-03] MEDS: Metoclopramide 10 MG/10 ML UD.LIQ PO PRN (10:03)
[2018-12-03 11:22] VITALS: BP 123/62
--- NOTE | 2018-12-03 11:42 | Discharge Summary ---
Orders not resulted at time of discharge: Pending orders 12/04/18 04:00 Basic Metabolic Panel AM 0400 CBC no Diff [Complete Blood Count w/o Diff] [HEME] AM 04012/05/18 04:00 Basic Metabolic Panel AM 0400 CBC no Diff [Complete Blood Count w/o Diff] [HEME] AM 04012/06/18 04:00 Basic Metabolic Panel AM 0400 CBC no Diff [Complete Blood Count w/o Diff] [HEME] AM 04012/07/18 04:00 Basic Metabolic Panel AM 0400 CBC no Diff [Complete Blood Count w/o Diff] [HEME] AM 04012/08/18 04:00 Basic Metabolic Panel AM 0400 CBC no Diff [Complete Blood Count w/o Diff] [HEME] [place] 39912/09/18 04:00 Basic Metabolic Panel AM 0400 CBC no Diff [Complete Blood Count w/o Diff] [HEME] AM 04012/10/18 04:00 Basic Metabolic Panel AM 0400 CBC no Diff [Complete Blood Count w/o Diff] [HEME] AM 040 Date of Encounter: 12/03/18 Time of Encounter: 11:38 - Discharge Diagnosis (1) Acute kidney injury superimposed on chronic kidney disease Priority: Primary Status: Acute (2) Acute on chronic respiratory failure with hypoxia Priority: Secondary Status: Resolved (3) COPD (chronic obstructive pulmonary disease) Priority: Secondary Status: Chronic Qualifiers: COPD type: unspecified COPD Qualified Code(s): J44.9 - Chronic obstructive pulmonary disease, unspecified (4) CAD (coronary artery disease) Priority: Secondary Status: Chronic Qualifiers: Coronary Disease-Associated Artery/Lesion type: [place] artery [place] vs. transplanted heart: [place] heart Associated angina: without angina Qualified Code(s): I25.10 - Atherosclerotic heart disease of [place] coronary artery without angina pectoris (5) HTN (hypertension) Priority: Secondary Status: Chronic Qualifiers: Hypertension type: essential hypertension Qualified Code(s): I10 - Essential (primary) hypertension (6) Hypothyroidism Priority: Secondary Status: Chronic Qualifiers: Hypothyroidism type: unspecified Qualified Code(s): E03.9 - Hypothyroidism, unspecified (7) Anemia Priority: Secondary Status: Chronic Qualifiers: Anemia type: iron deficiency Iron deficiency anemia type: unspecified iron deficiency Qualified Code(s): D50.9 - Iron deficiency anemia, unspecified (8) Leukocytosis Priority: Secondary Status: Resolved Qualifiers: Leukocytosis type: unspecified Qualified Code(s): D72.829 - Elevated white blood cell count, unspecified (9) Elevated troponin Priority: Secondary Status: Resolved (10) Constipation Priority: Secondary Status: Chronic Qualifiers: Constipation type: unspecified constipation type Qualified Code(s): K59.00 - Constipation, unspecified Hospital course: Ms. Weeks is a 68 year old female PMH of CAD s/p [facility] on October 22, HLD, hypothyroidism, COPD on 2 litters of O2 at home at night, and HTN. Patient presented to the ED due to worsening kidney function. Patient reports on October 22 she had an LCH and the following day was discharged home. After being discharged she reports worsening generalized weakness, reports it is hard for her to walk because she feels like her legs are going to give up on her due to the weakness. Patient was admitted to the hospital due to acute kidney injury, patient managed with IV hydration, and nephrology consulted. Due to elevated troponin on presentation cardiology consulted, recommended against any intervention but to continue aspirin and Plavix. As part of the workup a retroperitoneal ultrasound was done: Unremarkable. Patient kidney function did not recover, and patient was started on hemodialysis. Due to concern of pulmonary embolism a CTA of the chest was done after discussion with nephrology: No findings diagnostic of pulmonary embolus. Multifocal airspace disease bilaterally along with bilateral pleural effusions. This is non-specific and may represent pulmonary edema or pneumonia. Renal arterial duplex was done: Findings: bilateral renal artery is hemodynamically well maintained. H&H drop below 7 and 23 during these admission but due to patient's samaritan belief she was not transfused blood products. Patient was given IV iron and is started on Epoetin. H&H has been a stable at discharge 7.6 and 23.7. Permacath was placed on 12/02/18. Patient is hemodynamically stable to be transferred to an irritation facility. outpatient hemodialysis has been set up. - Time Spent with Patient Total time spent providing and/or coordinating discharge services: Time spent: Greater than 30 minutes (40) - Discharge Medications Prescriptions: New Bisacodyl [Dulcolax] 5 mg PO DAILY PRN 30 Days #30 tablet PRN Reason: Constipation Ferrous Sulfate 325 mg PO BIDWM 30 Days #60 tablet Isosorbide MONOnitrate (24 HR) [Imdur] 30 mg PO DAILY 30 Days #30 tab.er.24h Epoetin Matthew [Procrit] 3,000 unit SQ 3XW vial Continued Meclizine HCl [Verticalm] 25 mg PO BID PRN #10 tablet PRN Reason: Dizziness LORazepam [Ativan] 1 mg PO TID Atenolol [Tenormin] 50 mg PO DAILY amLODIPine [Norvasc] 5 mg PO DAILY Levothyroxine [Synthroid] 75 mcg PO QAM Fluticasone/Salmeterol [Advair 250-50 Diskus] 1 puff IH BID Clopidogrel [Plavix] 75 mg PO DAILY Omeprazole [PriLOSEC] 20 mg PO DAILY Losartan Potassium [Cozaar] 50 mg PO BID Albuterol Sulfate [Ventolin Hfa] 2 puff IH Q4H PRN PRN Reason: Shortness Of Breath Aspirin [Adult Aspirin Regimen] 81 mg PO DAILY Ipratropium/Albuterol Sulfate [Iprat-Albut 0.5-3(2.5) mg/3 ml] 3 ml IH Q6H PRN PRN Reason: Shortness Of Breath Ipratropium [place] 1 each IH Q4-6H PRN PRN Reason: Shortness Of Breath Home Medications: Meclizine HCl [Verticalm] 25 mg PO BID PRN #10 tablet 01/29/18 [Rx] Atenolol [Tenormin] 50 mg PO DAILY 10/21/18 [History] Clopidogrel [Plavix] 75 mg PO DAILY 10/21/18 [History] Fluticasone/Salmeterol [Advair 250-50 Diskus] 1 puff IH BID 10/21/18 [History] LORazepam [Ativan] 1 mg PO TID 10/21/18 [History] Levothyroxine [Synthroid] 75 mcg PO QAM 10/21/18 [History] Losartan Potassium [Cozaar] 50 mg PO BID 10/21/18 [History] Omeprazole [PriLOSEC] 20 mg PO DAILY 10/21/18 [History] amLODIPine [Norvasc] 5 mg PO DAILY 10/21/18 [History] Albuterol Sulfate [Ventolin Hfa] 2 puff IH Q4H PRN 11/14/18 [History] Aspirin [Adult Aspirin Regimen] 81 mg PO DAILY 11/14/18 [History] Ipratropium [place] 1 each IH Q4-6H PRN 11/14/18 [History] Ipratropium/Albuterol Sulfate [Iprat-Albut 0.5-3(2.5) mg/3 ml] 3 ml IH Q6H PRN 11/14/18 [History] Bisacodyl [Dulcolax] 5 mg PO DAILY PRN 30 Days #30 tablet 12/03/18 [Rx] Epoetin Matthew [Procrit] 3,000 unit SQ 3XW vial 12/03/18 [Rx] Ferrous Sulfate 325 mg PO BIDWM 30 Days #60 tablet 12/03/18 [Rx] Isosorbide MONOnitrate (24 HR) [Imdur] 30 mg PO DAILY 30 Days #30 tab.er.24h 12/03/18 [Rx] Allergies/Adverse Reactions: Allergy/AdvReac Type Severity Reaction Status Date / Time atorvastatin Allergy See Verified 11/14/18 11:40 Comments doxycycline Allergy Rash Verified 10/21/18 16:25 Sulfa (Sulfonamide Allergy Rash Verified 10/21/18 16:25 Antibiotics) codeine AdvReac Nausea Verified 10/21/18 16:25 hydrocodone [From Vicodin] AdvReac Irritable Verified 10/21/18 16:25 Date of admission: 11/15/18 14:35 Primary care physician: Patricia Topete CNP Consults: 11/14/18 11:21 Consult to Nephrology [CONS] Stat Consulting Provider: Kidney Merna/GUNJAN/MELISSA/LUISA Reason for Consult: BJ, spoke with Dr. Abdullahi who tea'd IV fluids and possible HD if hydration does not clear Time Notified: 11:22 Call Completed: Yes 11/14/18 11:27 Consult to Cardiology [CONS] Stat Comment: Consulting Provider: Cardiology [place] Reason for Consult: Elevated troponin after [facility] 10/22/18 in setting of B[place]. Spoke with Dr. Mcdonnell Time Notified: 11:28 Call Completed: Yes 11/18/18 10:41 Consult to Interventional Radiology [CONS] Routine Consulting Provider: Radiology Interventional [place] Reason for Consult: B/l Pleural effusion Right >left Call Completed: No 11/19/18 11:26 Consult to Interventional Radiology [CONS] Routine Consulting Provider: Radiology Interventional [facility]s Reason for Consult: Temp dialysis catheter placement Time Notified: 11:26 Call Completed: Yes 11/19/18 13:45 Consult to Dialysis [CONS] ONCE 11/19/18 16:39 Consult to Pulmonology [CONS] Routine Consulting Provider: [facility] [place] Reason for Consult: Hypoxia Time Notified: 16:39 Call Completed: Yes 11/20/18 07:38 Consult to Dialysis [CONS] Stat 11/23/18 08:45 Consult to Dialysis [CONS] ONCE 11/25/18 07:30 Consult to Dialysis [CONS] ONCE 11/26/18 08:10 Consult to Nurse Navigator [CONS] Routine Comment: copd, poss new hd 11/26/18 14:29 Consult to Occupational Therapy [CONS] Routine Comment: Evaluate, develop and implement POC Reason for Consult: eval for poss ecf Does patient have active BEDREST order?: No Is patient medically & hemodynamically stable?: Yes Consult to Physical Therapy [CONS] Routine Comment: Evaluate, develop and implement POC Reason for Consult: eval for poss ecf Does patient have active BEDREST order?: No Is patient medically & hemodynamically stable?: Yes 11/27/18 07:45 Consult to Dialysis [CONS] QMWF 11/27/18 14:38 Consult to Automotive Service Technician [CONS] Routine Reason for SW Consult: needs ecf 11/29/18 07:45 Consult to Dialysis [CONS] QMWF 12/01/18 21:13 Consult to Interventional Radiology [CONS] Routine Consulting Provider: Radiology Interventional Cols Reason for Consult: permcath placement Call Completed: No 12/02/18 09:00 Consult to Dialysis [CONS] ONCE - Constitutional Vitals: Temp Pulse Resp BP Pulse Ox 98.2 F 71 16 123/62 92 12/03/18 11:21 12/03/18 11:21 12/03/18 11:21 12/03/18 11:21 12/03/18 11:21 Exam: Vitals: Reviewed. General: Alert and oriented x4. In mild distress due to generalized weakness Skin: permacath in the right ant chest wall Cardiovascular: RRR, normal S1 & S2, no rubs, murmurs or gallops. Lungs: CTA b/l, no wheezes or crackles. Abdomen: Soft, non-tender, no rigidity. NABS in all 4 quadrants Extremities: No edema. Neurological: No focal neurological deficits Rest of the physical exam is non contributory - Patient Status Disposition: Transfer Inpatient Rehab Fac Condition: Fair Functional capacity at discharge: uses cane/walker Overall status at discharge: patient is progressing back to baseline - Discharge Instructions Follow Up With: Patricia Topete CNP [Primary Care Provider] - 11/29/18 9:00 am - Diet and Activity Activity: wear oxygen at all times (2 litters ) Diet: low salt diet, other (renal diet)
--- NOTE | 2018-12-03 11:56 | Physician Discharge Referral ---
ExtendedCare Referral Info Transfer To: snf - Diagnosis (1) Acute kidney injury superimposed on chronic kidney disease Priority: Primary Status: Acute (2) Acute on chronic respiratory failure with hypoxia Priority: Secondary Status: Resolved (3) COPD (chronic obstructive pulmonary disease) Priority: Secondary Status: Chronic (4) CAD (coronary artery disease) Priority: Secondary Status: Chronic (5) HTN (hypertension) Priority: Secondary Status: Chronic (6) Hypothyroidism Priority: Secondary Status: Chronic (7) Anemia Priority: Secondary Status: Chronic (8) Leukocytosis Priority: Secondary Status: Resolved (9) Elevated troponin Priority: Secondary Status: Resolved (10) Constipation Priority: Secondary Status: Chronic Prognosis: Fair Aware of Diagnosis: Patient Aware of Prognosis: Patient - Transfer Medications Prescriptions: Bisacodyl [Dulcolax] 5 mg PO DAILY PRN 30 Days #30 tablet PRN Reason: Constipation Ferrous Sulfate 325 mg PO BIDWM 30 Days #60 tablet Isosorbide MONOnitrate (24 HR) [Imdur] 30 mg PO DAILY 30 Days #30 tab.er.24h Home Medications: Meclizine HCl [Verticalm] 25 mg PO BID PRN #10 tablet 01/29/18 [Rx] Atenolol [Tenormin] 50 mg PO DAILY 10/21/18 [History] Clopidogrel [Plavix] 75 mg PO DAILY 10/21/18 [History] Fluticasone/Salmeterol [Advair 250-50 Diskus] 1 puff IH BID 10/21/18 [History] LORazepam [Ativan] 1 mg PO TID 10/21/18 [History] Levothyroxine [Synthroid] 75 mcg PO QAM 10/21/18 [History] Losartan Potassium [Cozaar] 50 mg PO BID 10/21/18 [History] Omeprazole [PriLOSEC] 20 mg PO DAILY 10/21/18 [History] amLODIPine [Norvasc] 5 mg PO DAILY 10/21/18 [History] Albuterol Sulfate [Ventolin Hfa] 2 puff IH Q4H PRN 11/14/18 [History] Aspirin [Adult Aspirin Regimen] 81 mg PO DAILY 11/14/18 [History] Ipratropium [place] 1 each IH Q4-6H PRN 11/14/18 [History] Ipratropium/Albuterol Sulfate [Iprat-Albut 0.5-3(2.5) mg/3 ml] 3 ml IH Q6H PRN 11/14/18 [History] Bisacodyl [Dulcolax] 5 mg PO DAILY PRN 30 Days #30 tablet 12/03/18 [Rx] Epoetin Matthew [Procrit] 3,000 unit SQ 3XW vial 12/03/18 [Rx] Ferrous Sulfate 325 mg PO BIDWM 30 Days #60 tablet 12/03/18 [Rx] Isosorbide MONOnitrate (24 HR) [Imdur] 30 mg PO DAILY 30 Days #30 tab.er.24h 12/03/18 [Rx] Allergies/Adverse Reactions: Allergy/AdvReac Type Severity Reaction Status Date / Time atorvastatin Allergy See Verified 11/14/18 11:40 Comments doxycycline Allergy Rash Verified 10/21/18 16:25 Sulfa (Sulfonamide Allergy Rash Verified 10/21/18 16:25 Antibiotics) codeine AdvReac Nausea Verified 10/21/18 16:25 hydrocodone [From Vicodin] AdvReac Irritable Verified 10/21/18 16:25 - Respiratory Orders Oxygen / L per min (2 litters of O2) Smoking Cessation: Smoking cessation has been advised. For more information, call the [place] Tobacco Quit Line at 3-315-BSMV-NOW. - Advance Directives Code Status: Full Code - Mobility Orders Ambulate - Rehabiliation Orders Rehab Potential: Fair Rehab Orders: Evaluation for Physical Therapy, Evaluation for Occupational Therapy - Diet Orders Regular CERTIFICATION: I certify that the transfer of the above named patient to an Extended Care Facility is necessary for the continuing treatment of the diagnosis listed. The above information is true and accurate reflection of patient's current condition. Confidential - Redisclosure prohibited without a patient's written consent.
== END 2018-12-03 17:58 | DRG 673 ==
LOC: EMEROOARM 09:57 → 2ANU 09:57 → SUATTDRO 11-15 14:35 → 2NNU 11-19 17:22 → ICNU 11-21 16:40 → 2ANU 11-23 14:13
PROVIDERS: ADMIT Internal Medicine; ATTEND Internal Medicine
PROC: IRPERMA (2018-12-02 11:00)

== ENCOUNTER 2019-02-17 01:17 | Inpatient (IN) ==
[2019-02-17] MEDS ORDERED: Ipratropium/Albuterol Neb 3 ML IH ONE (01:31)
[2019-02-17] MEDS ORDERED: methylPREDNISolone 125 MG/2 ML VIAL IVP ONE (01:32)
[2019-02-17 01:49] LABS: Basophils # 0.1 K/mcL (0.0-0.2); Eosinophils # 0.8 K/mcL (0.0-0.6); Hematocrit 38.1 % (35.3-44.9); Hemoglobin 11.4 g/dL (11.5-15.4); Immature Granulocytes % 0.6 % (0-4); Lymphocytes # 3.7 K/mcL (0.6-4.6); Lymphocytes % 39.6 %; Mean Corpuscular HGB Conc 29.9 g/dL (31.6-35.5); Mean Corpuscular Hemoglobin 25.6 pg (28.0-33.3); Mean Corpuscular Volume 85.4 fL (83.0-100.0); Monocytes # 0.5 K/mcL (0.0-1.3); Monocytes % 5.2 %; Neutrophils # 4.2 K/mcL (1.6-8.9); Platelet Count 267 K/mcL (140-400); Red Blood Count 4.46 M/mcL (3.82-4.97); Red Cell Distribution Width 17.8 % (11.5-14.5); Segmented Neutrophils % 44.6 %; White Blood Count 9.4 K/mcL (4.3-11.1)
[2019-02-17 02:14] LABS: Alanine Aminotransferase 8 Units/L (7-52); Albumin 3.8 g/dL (3.5-5.7); Albumin/Globulin Ratio 1.5 (1.1-2.2); Alkaline Phosphatase 92 Units/L (34-104); Aspartate Amino Transferase 16 Units/L (13-39); BUN/Creatinine Ratio 4 (6-26); Bilirubin,Total 0.4 mg/dL (0.3-1.0); Blood Urea Nitrogen 18 mg/dL (8-23); Calcium 9.1 mg/dL (8.6-10.3); Carbon Dioxide 25 mEq/L (23-29); Chloride 99 mEq/L (98-107); Globulin 2.5 g/dL (2.4-3.5); Glucose 137 mg/dL (70-105); Osmolality,Calculated 284 (280-300); Sodium 135 mEq/L (136-145); Total Protein 6.3 g/dL (6.4-8.9); Troponin I < 0.03 ng/mL (< 0.04); eGFR For African Americans 11 (> 60); eGFR For Non-African Americans 9 (> 60)
--- NOTE | 2019-02-17 02:14 | Emergency Department Note ---
Disposition Clinical Impression: ESRD (end stage renal disease) Volume overload Qualifiers: Hypervolemia type: unspecified Qualified Code(s): E87.70 - Fluid overload, u nspecified Pulmonary edema Qualifiers: Chronicity: acute Qualified Code(s): J81.0 - Acute pulmonary edema Disposition: Admitted As Inpatient Condition: Serious Referrals: Efrem,Patricia Dick CNP [Primary Care Provider] - Forms: ED Satisfaction Letter Time of Disposition: 04:32 General Adult HPI - General Chief complaint: ED Shortness of Breath/Dyspnea Stated complaint: LEXA Time Seen by Provider: 02/17/19 01:22 Source: patient, EMS Limitations: no limitations - History of Present Illness HPI Narrative: 68-year-old female, the past medical history of COPD, CKD dialysis dependent, hypertension, hyperlipidemia, CVA, hypothyroidism presents with progressive shortness of breath that began earlier today. Patient is on 2 L of oxygen at baseline, she recently had to bump it up to 3.5-4 because she was having difficulty breathing. She was brought in by ambulance, they gave her one DuoNeb in route which seemed to help her symptoms. Patient states that she is coughing more than usual but it is nonproductive. She denies fever or chills. She denies nausea or vomiting. She is endorsing increased fatigue and weakness. The patient also endorses some weight gain, and increased swelling in her lower extremities. She denies having to prop herself up with pillows, and denies orthopnea. Patient was recently here at [facility] and was in the ICU, for a COPD excerbation and pneumonia. She was treated with Zithromax. Patient denies ever being intubated, and states that she does not want to be intubated if she needs to be. Pain Scale: 0 - Related Data Home Medications Medication Instructions Recorded Confirmed Atenolol [Tenormin] 50 mg PO DAILY 10/21/18 02/17/19 Clopidogrel [Plavix] 75 mg PO DAILY 10/21/18 02/17/19 Fluticasone/Salmeterol [Advair 1 puff IH BID 10/21/18 02/17/19 250-50 Diskus] Levothyroxine [Synthroid] 75 mcg PO QAM 10/21/18 02/17/19 Losartan Potassium [Cozaar] 50 mg PO BID 10/21/18 02/17/19 Omeprazole [PriLOSEC] 20 mg PO DAILY 10/21/18 02/17/19 amLODIPine [Norvasc] 5 mg PO DAILY 10/21/18 02/17/19 Albuterol Sulfate [Ventolin Hfa] 2 puff IH Q4H PRN 11/14/18 02/17/19 Aspirin [Adult Aspirin Regimen] 81 mg PO DAILY 11/14/18 02/17/19 Ipratropium/Albuterol Sulfate 3 ml IH Q6H PRN 11/14/18 02/17/19 [Iprat-Albut 0.5-3(2.5) mg/3 ml] Ferrous Sulfate [Iron] 325 mg PO WEFR 01/17/19 02/17/19 Isosorbide MONOnitrate (24 HR) 30 mg PO DAILY 01/17/19 02/17/19 [Imdur] Bisacodyl [Woman's Laxative] 5 mg PO DAILY PRN 02/03/19 02/17/19 LORazepam [Ativan] 0.5 mg PO QAM 02/04/19 02/17/19 Midodrine [ProAmatine] 5 mg PO TUTHSA 02/04/19 02/17/19 OLANZapine [Zyprexa] 2.5 mg PO DAILY 02/04/19 02/17/19 Previous Rx's Medication Instructions Recorded LORazepam [Ativan] 0.5 mg PO BID #0 02/05/19 Allergies Allergy/AdvReac Type Severity Reaction Status Date / Time atorvastatin Allergy See Verified 02/17/19 03:57 Comments doxycycline Allergy Rash Verified 02/17/19 03:57 Sulfa (Sulfonamide Allergy Rash Verified 02/17/19 03:57 Antibiotics) codeine AdvReac Nausea Verified 02/17/19 03:57 hydrocodone [From Vicodin] AdvReac Irritable Verified 02/17/19 03:57 All systems ED: reviewed and negative except as stated. Review of Systems: As Per HPI Constitutional: Denies: fever, weakness Cardiovascular: Reports: dyspnea on exertion, edema. Denies: chest pain, p alpitations, orthopnea, paroxysmal nocturnal dyspnea Respiratory: Reports: cough, dyspnea, wheezes Gastrointestinal: Denies: nausea, vomiting Past Medical History - Past Medical History Medical history: Reports: asthma, cancer, COPD, CVA, dialysis, hyperlipidemia, hypertension, other Surgical history: Reports: appendectomy, cholecystectomy Psychiatric history: Reports: anxiety - Social History Smoking Status: Former smoker Smokeless Tobacco Status: No Alcohol use: Reports: none Drug use: Reports: none Physical Exam Vital signs noted please see nurse's notes. Gen.: Cachectic appearing, Head: Atraumatic, normocephalic. Eyes: Sclerae anicteric. ENT: Mucous membranes moist. Neck: No JVD. Heart: Regular rate and rhythm without appreciable murmur, gallops, or rubs. Lungs: Diminished breath sounds bilaterally, poor effort, almost no air movement can be audibly heard, minimal expiratory wheezes Abdomen: Soft, nontender, nondistended, no guarding or peritoneal signs. No hep atojugular reflex Skin: Warm and dry without rash. Neurologic: Awake, alert with normal speech and mental status. Cranial nerves grossly intact. No focal deficits or lateralizing signs. Psychiatric: Normal mood and affect. Musculoskeletal: 1+ pitting edema bilaterally in lower extremities. No signs of trauma or DVT. Peripheral Vascular: Radial pulses 2+ and symmetrical b/l. - General Limitations: no limitations General appearance: alert Course Vital Signs Temperature 97.9 F 02/17/19 01:22 Pulse Rate 94 02/17/19 01:22 Respiratory Rate 24 02/17/19 01:22 Blood Pressure 175/105 02/17/19 01:22 O2 Sat by Pulse Oximetry 100 02/17/19 01:22 Temperature 97.9 F 02/17/19 01:22 Pulse Rate 87 02/17/19 03:59 Respiratory Rate 26 02/17/19 03:59 Blood Pressure 162/98 02/17/19 03:59 O2 Sat by Pulse Oximetry 96 02/17/19 03:59 Oxygen Delivery Oxygen Delivery Nasal Cannula Medical Decision Making - [facility] Narrative Medical decision making narrative: The patient was greeted upon arrival to the emergency department, she was placed on a monitor, IVs were established, and the pulse ox was established. She was placed on nasal cannula with 4 L of oxygen. Basic labs were drawn, a 2 view chest x-ray was obtained, and she was provided with 125 mg of Solu-Medrol and 3 DuoNeb breathing treatments. A thorough history and physical exam were obtained. High on the differential was a COPD exacerbation, pneumonia, pulmonary edema secondary to her chronic kidney disease , and new onset congestive heart failure. Patient had dialysis on Sunday, she receives dialys is on Sunday, she states that she often gets swollen in her lower extremities the closer she gets to dialysis at this time it came on quicker than usual I believe that fluid overload with pulmonary edema is the most likely culprit for her condition. Her chest x-ray shows diffuse pulmonary edema, with increased vascularization to the periphery. She has an elevated BMP of 3900, which is 3 times greater than any previous laboratory finding in her chart. Additionally she has an elevated blood pressure, and 1+ pitting edema bilaterally in her lower extremities. We will start her on a nitroglycerin drip, and 40 mg of IV Lasix. The patient does not have a fever, does not have chills, does not have a productive cough. Pro calcitonin is elevated 0.56, and Chest x-ray does show a small consolidation in the left lower lobe, but this is improved from previous chest x-rays. I believe that this consolidation may be chronic her previous chest x-rays from prior visits show pleural effusions and chronic consolidations or scarring in this area. She has a history of lung ca ncer and lobectomy in this long. The Pro calcitonin is elevated at 0.56 I will defer to the inpatient team if they want to add antibiotics. She was recently admitted to our ICU, she does get dialysis, and was admitted for 11 days at [facility] in the past month so she would need multiple IV antibiotics for hospital- acquired pneumonia if they suspect this. - Medical Records Medical records reviewed: Yes I reviewed the patient's medical records. - Lab Data Lab results reviewed: Yes I reviewed the patient's lab results. Result diagrams: 02/17/19 01:40 02/17/19 01:40 Lab Results 02/17/19 02/17/19 02/17/19 Range/Units 01:40 01:40 01:40 WBC 9.4 (4.3-11.1) K/mcL RBC 4.46 (3.82-4.97) M/mcL Hgb 11.4 L (11.5-15.4) g/dL Hct 38.1 (35.3-44.9) % MCV 85.4 (83.0-100.0) fL MCH 25.6 L (28.0-33.3) pg MCHC 29.9 L (31.6-35.5) g/dL RDW 17.8 H (11.5-14.5) % Plt Count 267 (140-400) K/mcL MPV 10.0 (9.4-12.4) fL Immature Gran % 0.6 (0-4) % Seg Neutrophils % 44.6 % Lymphocytes % 39.6 % Monocytes % 5.2 % Eosinophils % 9.0 % Basophils % 1.0 % Neutrophils # 4.2 (1.6-8.9) K/mcL Lymphocytes # 3.7 (0.6-4.6) K/mcL Monocytes # 0.5 (0.0-1.3) K/mcL Eosinophils # 0.8 H (0.0-0.6) K/mcL Basophils # 0.1 (0.0-0.2) K/mcL Sodium 135 L (136-145) mEq/L Potassium 5.0 (3.5-5.1) mEq/L Chloride 99 (98-107) mEq/L Carbon Dioxide 25 (23-29) mEq/L BUN 18 (8-23) mg/dL Creatinine 4.66 H (0.60-1.20) mg/dL Est GFR ( Amer) 11 L (> 60) Est GFR (Non-Af Amer) 9 L (> 60) BUN/Creatinine Ratio 4 L (6-26) Glucose 137 H (70-105) mg/dL Calculated Osmolality 284 (280-300) Calcium 9.1 (8.6-10.3) mg/dL Total Bilirubin 0.4 (0.3-1.0) mg/dL AST 16 (13-39) Units/L ALT 8 (7-52) Units/L Alkaline Phosphatase 92 (34-104) Units/L Troponin I < 0.03 (< 0.04) ng/mL B-Natriuretic Peptide 3913 H (Less than 100) pg/mL Serum Total Protein 6.3 L (6.4-8.9) g/dL Albumin 3.8 (3.5-5.7) g/dL Globulin 2.5 (2.4-3.5) g/dL Albumin/Globulin Ratio 1.5 (1.1-2.2) Procalcitonin (0.00-0.15) ng/mL 02/17/19 Range/Units 01:40 WBC (4.3-11.1) K/mcL RBC (3.82-4.97) M/mcL Hgb (11.5-15.4) g/dL Hct (35.3-44.9) % MCV (83.0-100.0) fL MCH (28.0-33.3) pg MCHC (31.6-35.5) g/dL RDW (11.5-14.5) % Plt Count (140-400) K/mcL MPV (9.4-12.4) fL Immature Gran % (0-4) % Seg Neutrophils % % Lymphocytes % % Monocytes % % Eosinophils % % Basophils % % Neutrophils # (1.6-8.9) K/mcL Lymphocytes # (0.6-4.6) K/mcL Monocytes # (0.0-1.3) K/mcL Eosinophils # (0.0-0.6) K/mcL Basophils # (0.0-0.2) K/mcL Sodium (136-145) mEq/L Potassium (3.5-5.1) mEq/L Chloride (98-107) mEq/L Carbon Dioxide (23-29) mEq/L BUN (8-23) mg/dL Creatinine (0.60-1.20) mg/dL Est GFR ( Amer) (> 60) Est GFR (Non-Af Amer) (> 60) BUN/Creatinine Ratio (6-26) Glucose (70-105) mg/dL Calculated Osmolality (280-300) Calcium (8.6-10.3) mg/dL Total Bilirubin (0.3-1.0) mg/dL AST (13-39) Units/L ALT (7-52) Units/L Alkaline Phosphatase (34-104) Units/L Troponin I (< 0.04) ng/mL B-Natriuretic Peptide (Less than 100) pg/mL Serum Total Protein (6.4-8.9) g/dL Albumin (3.5-5.7) g/dL Globulin (2.4-3.5) g/dL Albumin/Globulin Ratio (1.1-2.2) Procalcitonin 0.56 H (0.00-0.15) ng/mL - Radiology Data Chest X-Ray 02/17/19 01:33 IMPRESSION: Diffuse bilateral reticular infiltrates. Infiltrate at the left lung base. Small left pleural effusion. D/ / Olivia Lee MD / Olivia Lee MD Interpreting Provider: Olivia Lee MD - EKG Data EKG #1 EKG attestation: Yes I reviewed and interpreted this EKG. EKG results narrative: EKG was interpreted by me 0136. The rhythm is normal sinus rhythm, the rate is regular and 90. The axis is normal. There is no evidence of heart block. The VT interval is 161 The QRS duration is within normal limits and 91 the QTC is within normal limits and 462 . There are no ST elevations or depressions and no T-wave inversions or hyper acuity. There is no evidence of pathologic Q waves. There is no evidence of WPW, Brugada, HOCM.
[2019-02-17] MEDS ORDERED: Furosemide 40 MG/4 ML VIAL IVP ONE (02:58)
[2019-02-17] MEDS ORDERED: Nitroglycerin 25 MG/250 ML INFUS..BTL IVC SCH (03:00)
--- NOTE | 2019-02-17 03:40 | Emergency Department Note ---
Disposition Clinical Impression: ESRD (end stage renal disease) Volume overload Qualifiers: Hypervolemia type: unspecified Qualified Code(s): E87.70 - Fluid overload, u nspecified Pulmonary edema Qualifiers: Chronicity: acute Qualified Code(s): J81.0 - Acute pulmonary edema Disposition: Admitted As Inpatient Condition: Serious Time of Disposition: 04:32 General Adult HPI - General Chief complaint: ED Shortness of Breath/Dyspnea Stated complaint: LEXA Time Seen by Provider: 02/17/19 01:22 Source: patient, EMS Limitations: no limitations Nursing Notes Reviewed: Yes Vital Signs Reviewed: Yes - History of Present Illness Pain Scale: 0 - Related Data Home Medications Medication Instructions Recorded Confirmed Atenolol [Tenormin] 50 mg PO DAILY 10/21/18 02/17/19 Clopidogrel [Plavix] 75 mg PO DAILY 10/21/18 02/17/19 Fluticasone/Salmeterol [Advair 1 puff IH BID 10/21/18 02/17/19 250-50 Diskus] Levothyroxine [Synthroid] 75 mcg PO QAM 10/21/18 02/17/19 Losartan Potassium [Cozaar] 50 mg PO BID 10/21/18 02/17/19 Omeprazole [PriLOSEC] 20 mg PO DAILY 10/21/18 02/17/19 amLODIPine [Norvasc] 5 mg PO DAILY 10/21/18 02/17/19 Albuterol Sulfate [Ventolin Hfa] 2 puff IH Q4H PRN 11/14/18 02/17/19 Aspirin [Adult Aspirin Regimen] 81 mg PO DAILY 11/14/18 02/17/19 Ipratropium/Albuterol Sulfate 3 ml IH Q6H PRN 11/14/18 02/17/19 [Iprat-Albut 0.5-3(2.5) mg/3 ml] Ferrous Sulfate [Iron] 325 mg PO WEFR 01/17/19 02/17/19 Isosorbide MONOnitrate (24 HR) 30 mg PO DAILY 01/17/19 02/17/19 [Imdur] Bisacodyl [Woman's Laxative] 5 mg PO DAILY PRN 02/03/19 02/17/19 LORazepam [Ativan] 0.5 mg PO QAM 02/04/19 02/17/19 Midodrine [ProAmatine] 5 mg PO TUTHSA 02/04/19 02/17/19 OLANZapine [Zyprexa] 2.5 mg PO DAILY 02/04/19 02/17/19 Previous Rx's Medication Instructions Recorded LORazepam [Ativan] 0.5 mg PO BID #0 02/05/19 Allergies Allergy/AdvReac Type Severity Reaction Status Date / Time atorvastatin Allergy See Verified 02/17/19 03:57 Comments doxycycline Allergy Rash Verified 02/17/19 03:57 Sulfa (Sulfonamide Allergy Rash Verified 02/17/19 03:57 Antibiotics) codeine AdvReac Nausea Verified 02/17/19 03:57 hydrocodone [From Vicodin] AdvReac Irritable Verified 02/17/19 03:57 Constitutional: Reports: fever, weakness Cardiovascular: Reports: dyspnea on exertion, edema. Denies: chest pain, palpitations, orthopnea, paroxysmal nocturnal dyspnea Respiratory: Reports: cough, dyspnea, wheezes Gastrointestinal: Denies: nausea, vomiting Past Medical History - Past Medical History Medical history: Reports: asthma, cancer, COPD, CVA, dialysis, hyperlipidemia, hypertension, other Surgical history: Reports: appendectomy, cholecystectomy Psychiatric history: Reports: anxiety - Social History Smoking Status: Former smoker Smokeless Tobacco Status: No Alcohol use: Reports: none Drug use: Reports: none Physical Exam - General Limitations: no limitations General appearance: alert Course Vital Signs Temperature 97.9 F 02/17/19 01:22 Pulse Rate 94 02/17/19 01:22 Respiratory Rate 24 02/17/19 01:22 Blood Pressure 175/105 02/17/19 01:22 O2 Sat by Pulse Oximetry 100 02/17/19 01:22 Temperature 97.9 F 02/17/19 01:22 Pulse Rate 87 02/17/19 03:59 Respiratory Rate 26 02/17/19 03:59 Blood Pressure 162/98 02/17/19 03:59 O2 Sat by Pulse Oximetry 96 02/17/19 03:59 Oxygen Delivery Oxygen Delivery Nasal Cannula Medical Decision Making - Medical Records Medical records reviewed: Yes I reviewed the patient's medical records. - Lab Data Lab results reviewed: Yes I reviewed the patient's lab results. Result diagrams: 02/17/19 01:40 02/17/19 01:40 Lab Results 02/17/19 02/17/1902/17/19 Range/Units 01:40 01:40 01:40 WBC 9.4 (4.3-11.1) K/mcL RBC 4.46 (3.82-4.97) M/mcL Hgb 11.4 L (11.5-15.4) g/dL Hct 38.1 (35.3-44.9) % MCV 85.4 (83.0-100.0) fL MCH 25.6 L (28.0-33.3) pg MCHC 29.9 L (31.6-35.5) g/dL RDW 17.8 H (11.5-14.5) % Plt Count 267 (140-400) K/mcL MPV 10.0 (9.4-12.4) fL Immature Gran % 0.6 (0-4) % Seg Neutrophils % 44.6 % Lymphocytes % 39.6 % Monocytes % 5.2 % Eosinophils % 9.0 % Basophils % 1.0 % Neutrophils # 4.2 (1.6-8.9) K/mcL Lymphocytes # 3.7 (0.6-4.6) K/mcL Monocytes # 0.5 (0.0-1.3) K/mcL Eosinophils # 0.8 H (0.0-0.6) K/mcL Basophils # 0.1 (0.0-0.2) K/mcL Sodium 135 L (136-145) mEq/L Potassium 5.0 (3.5-5.1) mEq/L Chloride 99 (98-107) mEq/L Carbon Dioxide 25 (23-29) mEq/L BUN 18 (8-23) mg/dL Creatinine 4.66 H (0.60-1.20) mg/dL Est GFR ( Amer) 11 L (> 60) Est GFR (Non-Af Amer) 9 L (> 60) BUN/Creatinine Ratio 4 L (6-26) Glucose 137 H (70-105) mg/dL Calculated Osmolality 284 (280-300) Calcium 9.1 (8.6-10.3) mg/dL Total Bilirubin 0.4 (0.3-1.0) mg/dL AST 16 (13-39) Units/L ALT 8 (7-52) Units/L Alkaline Phosphatase 92 (34-104) Units/L Troponin I < 0.03 (< 0.04) ng/mL B-Natriuretic Peptide 3913 H (Less than 100) pg/mL Serum Total Protein 6.3 L (6.4-8.9) g/dL Albumin 3.8 (3.5-5.7) g/dL Globulin 2.5 (2.4-3.5) g/dL Albumin/Globulin Ratio 1.5 (1.1-2.2) Procalcitonin (0.00-0.15) ng/mL 02/17/19 Range/Units 01:40 WBC (4.3-11.1) K/mcL RBC (3.82-4.97) M/mcL Hgb (11.5-15.4) g/dL Hct (35.3-44.9) % MCV (83.0-100.0) fL MCH (28.0-33.3) pg MCHC (31.6-35.5) g/dL RDW (11.5-14.5) % Plt Count (140-400) K/mcL MPV (9.4-12.4) fL Immature Gran % (0-4) % Seg Neutrophils % % Lymphocytes % % Monocytes % % Eosinophils % % Basophils % % Neutrophils # (1.6-8.9) K/mcL Lymphocytes # (0.6-4.6) K/mcL Monocytes # (0.0-1.3) K/mcL Eosinophils # (0.0-0.6) K/mcL Basophils # (0.0-0.2) K/mcL Sodium (136-145) mEq/L Potassium (3.5-5.1) mEq/L Chloride (98-107) mEq/L Carbon Dioxide (23-29) mEq/L BUN (8-23) mg/dL Creatinine (0.60-1.20) mg/dL Est GFR ( Amer) (> 60) Est GFR (Non-Af Amer) (> 60) BUN/Creatinine Ratio (6-26) Glucose (70-105) mg/dL Calculated Osmolality (280-300) Calcium (8.6-10.3) mg/dL Total Bilirubin (0.3-1.0) mg/dL AST (13-39) Units/L ALT (7-52) Units/L Alkaline Phosphatase (34-104) Units/L Troponin I (< 0.04) ng/mL B-Natriuretic Peptide (Less than 100) pg/mL Serum Total Protein (6.4-8.9) g/dL Albumin (3.5-5.7) g/dL Globulin (2.4-3.5) g/dL Albumin/Globulin Ratio (1.1-2.2) Procalcitonin 0.56 H (0.00-0.15) ng/mL - Radiology Data Radiology results reviewed: Yes I reviewed the patient's radiology results. Chest X-Ray 02/17/19 01:33 IMPRESSION: Diffuse bilateral reticular infiltrates. Infiltrate at the left lung base. Small left pleural effusion. D/ / Olivia Lee MD / Olivia Lee MD Interpreting Provider: Olivia Lee MD - EKG Data EKG #1 EKG attestation: Yes I reviewed and interpreted this EKG. EKG results narrative: EKG shows a normal sinus rhythm with ventricular rate of 90. No significant ST segment elevation or depression. No arrhythmia or ectopy. Normal EKG. Critical Care Time Critical Care Time: Yes Total Critical Care Time: 40 Attestation: Critical care performed: Time is exclusive of separately billable procedures. Time includes: direct patient care, patient reassessment, coordination of patient care, interpretation of data (laboratory data, radiology data, and respiratory data), review of patient's medical records, medical consultation and documentation of patient care. Procedures included in critical care time: Procedures excluded from critical care time: Attestation Statement - Attestation Attestation: I, Artur Ramey MD, personally evaluated this patient and discussed their management with the resident physician. I reviewed the resident's note and agree with the documented findings, medical decision making, and plan of care. I reviewed the residents documentation and agree with the residents assessment and plan of care. I have personally had face to face time with the patient. I personally supervised and was present for the wheatley/critical portions of the following procedures completed by the resident: EKG interpretation. 70-year-old female with history of end-stage renal disease on hemodialysis presents to the emergency department by EMS with a complaint of increased shortness of breath throughout the day. She went to bed tonight and a few hours later woke up with significantly increased shortness of breath. It is worse with lying down. She also complains of increased swelling of her feet and ankles. She has dialysis on Sunday, , and Sunday. She has not missed any dialysis. No cough or fever. No chest pain. She does have home oxygen which she normally wears at 2 L but today increased to 3.5 L. On examination patient is a well-developed well-nourished elderly female in mild respiratory distress. She is alert and oriented 3. There is no cyanosis or diaphoresis. She does appear anxious. Breath sounds are markedly decreased bilaterally with a few faint scattered expiratory wheezes. No rales noted however there is very limited air movement. Heart regular rate and rhythm. Ab domen is soft and nontender with normal bowel sounds. There is 2+ pitting edema of the lower extremities bilaterally. EKG shows a normal sinus rhythm with ventricular rate of 90. No significant ST segment elevation or depression. No arrhythmia or ectopy. Normal EKG. Chest x-ray shows diffuse bilateral reticular infiltrates. Labs reviewed. BNP 3913. This is significantly elevated from her prior level which was approximately 1400. Patient received DuoNeb nebulizer treatments. She also received Lasix 40 mg IV. Nitroglycerin infusion. The hospitalist, Dr. Em, was consulted and accepted admission of the patient.
[2019-02-17] MEDS ORDERED: *HR* LORazepam 2 MG/ML VIAL IVP ONE (04:16)
--- NOTE | 2019-02-17 05:51 | Internal Med History&Physical ---
<Jamil Weir - Last Filed: 02/17/19 06:47> Date of Encounter: 02/17/19 Time of Encounter: 05:52 Internal Medicine - H&P: HPI Chief complaint: SOB Admitted From: Emergency Dept Plans for Post Hospital Care: Home History of present illness: Ms. Weeks is a 68 year old female with a PMHx of In the ED, vitals were significant for HR 94, RR 24, BP 175/105 and she was tolerating 100% O2 on 4L NC. Labs showed baseline anemia of 11.4, Na of 135, Cr of 4.66 with K of 5.0 and bicarb 25. BNP of 3913. Procalcitonin was elevated at 0.56. CXR showed diffuse bilateral reticular infiltrates and infiltrate at the left lung base. She was given Lasix 40 mg IV, 1 duoneb, 1mg ativan, solumedrol, and started on a nitroglycerin gtt for her elevated blood pressure. Past Med Surg Social Fam HX - Past Medical History Medical history: asthma, cancer, COPD, CVA, dialysis, hyperlipidemia, hypertension, other Additional medical history: no deficits from previous CVA. lung cancer Psychiatric history: anxiety - Past Surgical History Surgical History: appendectomy, cholecystectomy Additional surgical history: left upper lobe removed. 3 cardiac stents. dialysis port right upper chest - Social History Smoking Status: Former smoker Smokeless Tobacco Status: No Alcohol use: none Drug use: none Internal Medicine - H&P: Meds Atenolol [Tenormin] 50 mg PO DAILY 10/21/18 [History] Clopidogrel [Plavix] 75 mg PO DAILY 10/21/18 [History] Fluticasone/Salmeterol [Advair 250-50 Diskus] 1 puff IH BID 10/21/18 [History] Levothyroxine [Synthroid] 75 mcg PO QAM 10/21/18 [History] Losartan Potassium [Cozaar] 50 mg PO BID 10/21/18 [History] Omeprazole [PriLOSEC] 20 mg PO DAILY 10/21/18 [History] amLODIPine [Norvasc] 5 mg PO DAILY 10/21/18 [History] Albuterol Sulfate [Ventolin Hfa] 2 puff IH Q4H PRN 11/14/18 [History] Aspirin [Adult Aspirin Regimen] 81 mg PO DAILY 11/14/18 [History] Ipratropium/Albuterol Sulfate [Iprat-Albut 0.5-3(2.5) mg/3 ml] 3 ml IH Q6H PRN 11/14/18 [History] Ferrous Sulfate [Iron] 325 mg PO WEFR 01/17/19 [History] Isosorbide MONOnitrate (24 HR) [Imdur] 30 mg PO DAILY 01/17/19 [History] Bisacodyl [Woman's Laxative] 5 mg PO DAILY PRN 02/03/19 [History] LORazepam [Ativan] 0.5 mg PO QAM 02/04/19 [History] Midodrine [ProAmatine] 5 mg PO TUTHSA 02/04/19 [History] OLANZapine [Zyprexa] 2.5 mg PO DAILY 02/04/19 [History] LORazepam [Ativan] 0.5 mg PO BID #0 02/05/19 [Rx] Allergy/AdvReac Type Severity Reaction Status Date / Time atorvastatin Allergy See Verified 02/17/19 03:57 Comments doxycycline Allergy Rash Verified 02/17/19 03:57 Sulfa (Sulfonamide Allergy Rash Verified 02/17/19 03:57 Antibiotics) codeine AdvReac Nausea Verified 02/17/19 03:57 hydrocodone [From Vicodin] AdvReac Irritable Verified 02/17/19 03:57 All Systems PM: A 10-system review of systems was performed and is negative for pertinent findings except as documented above in the HPI. Review of systems: - Constitutional: Denies fevers, chills, weight loss, generalized fatigue - Head/Neck: Denies DODD, neck stiffness - EENT: Denies vision changes/blurriness. Admits to dysphagia to solids - CVS: Admits to edema. Denies chest pain, palpitations, CASEY, PND, - Pulm: Admits to SOB, non producitve cough. Denies sputum, hematemesis, wheezing - GI: Denies abdominal pain, anorexia, nausea, vomiting, diarrhea, constipation, melena - : Denies dysuria, increased frequency, urgency, hematuria, - Skin: Denies rashes, ulcers, color changes, - Neuro: Denies DODD, paresthesias, focal deficits, ataxia, - Constitutional Vitals: Temp Pulse Resp BP Pulse Ox 97.9 F 87 20 155/97 96 02/17/19 01:22 02/17/19 03:59 02/17/19 05:00 02/17/19 05:00 02/17/19 03:59 Exam: Gen.: Vitals noted. No acute distress. AAOx3, resting comfortably in bed. HEENT: PERRL/EOMI, oropharynx clear, Normocephalic, atraumatic, MMM Neck: Supple. No adenopathy. No thyroid nodules. Cardiac: RRR, mildly tachycardic, no murmur, +S1/S2, 2+ BLE edema Pulmonary: Rales present in bases, decreased in bases. Shallow respirations, equal chest expansion, unlabored breathing Abdomen: soft, nontender, BS noted, no guarding, no palpable HSM Skin: warm and dry, no visible lesions. MSK: ROM intact, no joint swelling noted, gait no assessed while in bed. Non tender calf or clubbing Neuro: A&Ox3, moves all extremities, no focal deficits, sensation intact Psych: Appropriate mood and behavior, AOx3 Internal Med - H&P Results - Labs CBC & Chem 7: 02/17/19 01:40 02/17/19 01:40 Labs: Short CBC 02/17/19 Range/Units 01:40 WBC 9.4 (4.3-11.1) K/mcL Hgb 11.4 L (11.5-15.4) g/dL Hct 38.1 (35.3-44.9) % Plt Count 267 (140-400) K/mcL Neutrophils # 4.2 (1.6-8.9) K/mcL BMP 02/17/19 01:40 Sodium 135 L Potassium 5.0 Chloride 99 Carbon Dioxide 25 BUN 18 Creatinine 4.66 H Glucose 137 H Calcium 9.1 Cardiac Enzymes 02/17/19 Range/Units 01:40 Troponin I < 0.03 (< 0.04) ng/mL Liver Function 02/17/19 Range/Units 01:40 Total Bilirubin 0.4 (0.3-1.0) mg/dL AST 16 (13-39) Units/L ALT 8 (7-52) Units/L Alkaline Phosphatase 92 (34-104) Units/L Albumin 3.8 (3.5-5.7) g/dL - Impressions ITS Impressions Chest X-Ray 02/17/19 01:33 IMPRESSION: Diffuse bilateral reticular infiltrates. Infiltrate at the left lung base. Small left pleural effusion. D/ / Olivia Lee MD / Olivia Lee MD Interpreting Provider: Olivia Lee MD - Assessment and Plan (1) ESRD (end stage renal disease) Current Visit: Yes Status: Acute Assessment and plan: - TTS HD with [facility] - Reports completing full sessions without missing - K of 5.0, bicarb acceptable - Nephro has been consulted, appreciate recommendations - Patient is becoming fluid overloaded despite completing HD. Consider CHF in addition -Patient reports only being on HD since October of this year following contrast from [facility]. (2) Volume overload Current Visit: Yes Status: Acute Assessment and plan: as above for ESRD, potentially in combination with CHF - Previous echo in October of 2018 shows EF 55% and mild wall motion segment abnormalities - Patient reports compliance with HD on TTS - Salt and fluid intake are relatively controlled per patient Qualifiers: Hypervolemia type: unspecified Qualified Code(s): E87.70 - Fluid overload, unspecified (3) SIRS (systemic inflammatory response syndrome) Current Visit: Yes Status: Acute Assessment and plan: - Tachycardia and tachypnea on presentation - Elevated procalcitonin of 0.56, however this may be elevated in the setting of kidney disease - Possible consolidation of CXR - Patient does report dysphagia, however denies any aspiration event - Given that patient was recently treated for PNA at [facility] and patient denies any clinical findings of pneumonia at this time, will not start antibiotics (4) Acute and chronic respiratory failure Current Visit: Yes Status: Acute Assessment and plan: - secondary to volume overload - Home O2 dependent due to Fluid overload per , 3.5L - Given 40 lasix in ED, nephrology consulted - Will defer any further diuresis to HD and nephro - Continue supplemental O2 Qualifiers: Respiratory failure complication: hypoxia Qualified Code(s): J96.21 - Acute and chronic respiratory failure with hypoxia (5) HTN (hypertension) Current Visit: Yes Status: Chronic Assessment and plan: - ELevated on admission at 175/105 - Started on nitro gtt in ED, has improved to 155/97 - Suspect that this is elevated due to volume overload - Will restart home meds, continue nitro for now as necessary. wean as able Qualifiers: Hypertension type: essential hypertension Qualified Code(s): I10 - Essential (primary) hypertension (6) Anemia Current Visit: Yes Status: Chronic Assessment and plan: - Hgb of 11 which is improved from baseline of 7-10 - No signs of bleeding at this time - Continue to monitor and continue home iron supplementation Qualifiers: Anemia type: iron deficiency Iron deficiency anemia type: unspecified iron deficiency Qualified Code(s): D50.9 - Iron deficiency anemia, unspecified (7) CAD (coronary artery disease) Current Visit: Yes Status: Chronic Assessment and plan: - Chronic - No complaints of chest pain - EKG reviewed and shows no signs of ischemia - Troponin wnl - Will continue home meds Qualifiers: Coronary Disease-Associated Artery/Lesion type: [place] artery [place] vs. transplanted heart: [place] heart Associated angina: without angina Qualified Code(s): I25.10 - Atherosclerotic heart disease of [place] coronary artery without angina pectoris (8) COPD (chronic obstructive pulmonary disease) Current Visit: Yes Status: Chronic Assessment and plan: does not appear to be in acute exacerbation Qualifiers: COPD type: unspecified COPD Qualified Code(s): J44.9 - Chronic obstructive pulmonary disease, unspecified (9) DVT prophylaxis Current Visit: Yes Status: Chronic Assessment and plan: subcutaneous heparin - Time Spent With Patient Total time spent is greater than 50% in coordination of care (as documented) at patient's floor/unit and/or counseling patient: <Phyllis Em - Last Filed: 02/17/19 07:32> Date of Encounter: 02/17/19 Internal Medicine - H&P: HPI History of present illness: Ms. Weeks is a 68 year old female All Systems PM: A 10-system review of systems was performed and is negative for pertinent findings except as documented above in the HPI. - Constitutional Vitals: Temp Pulse Resp BP Pulse Ox 97.5 F L 84 22 160/92 99 02/17/19 06:43 02/17/19 06:43 02/17/19 06:43 02/17/19 06:43 02/17/19 06:43 Internal Med - H&P Results - Labs CBC & Chem 7: 02/17/19 01:40 02/17/19 01:40 Labs: Short CBC 02/17/19 Range/Units 01:40 WBC 9.4 (4.3-11.1) K/mcL Hgb 11.4 L (11.5-15.4) g/dL Hct 38.1 (35.3-44.9) % Plt Count 267 (140-400) K/mcL Neutrophils # 4.2 (1.6-8.9) K/mcL BMP 02/17/19 01:40 Sodium 135 L Potassium 5.0 Chloride 99 Carbon Dioxide 25 BUN 18 Creatinine 4.66 H Glucose 137 H Calcium 9.1 Cardiac Enzymes 02/17/19 Range/Units 01:40 Troponin I < 0.03 (< 0.04) ng/mL Liver Function 02/17/19 Range/Units 01:40 Total Bilirubin 0.4 (0.3-1.0) mg/dL AST 16 (13-39) Units/L ALT 8 (7-52) Units/L Alkaline Phosphatase 92 (34-104) Units/L Albumin 3.8 (3.5-5.7) g/dL - Impressions ITS Impressions Chest X-Ray 02/17/19 01:33 IMPRESSION: Diffuse bilateral reticular infiltrates. Infiltrate at the left lung base. Small left pleural effusion. D/ / Olivia Lee MD / Olivia Lee MD Interpreting Provider: Olivia Lee MD - Time Spent With Patient Total time spent is greater than 50% in coordination of care (as documented) at patient's floor/unit and/or counseling patient: - Attending Attestation I performed a history and physical examination of the patient and discussed his management with the resident. I reviewed the residents note and agree with the documented findings and plan of care.
[2019-02-17] MEDS ORDERED: Acetaminophen 325 MG TABLET PO PRN (06:35)
[2019-02-17] MEDS ORDERED: Naloxone 0.4 MG/ML INJ IVP PRN (06:35)
[2019-02-17] MEDS ORDERED: Ipratropium/Albuterol Neb 3 ML IH PRN (06:36)
[2019-02-17] MEDS: Nitroglycerin 0.4 MG TAB.SUBL SL SCH (07:22)
[2019-02-17] MEDS ORDERED: 0.9 % Sodium Chloride 250 ML IVC PRN (07:33)
[2019-02-17] MEDS ORDERED: 0.9 % Sodium Chloride 1,000 ML PRIME SCH (07:45)
[2019-02-17] MEDS ORDERED: Isosorbide MONOnitrate (24 HR) 30 MG TAB.ER.24H PO SCH (09:00)
[2019-02-17] MEDS ORDERED: amLODIPine 5 MG TABLET PO SCH (09:00)
--- NOTE | 2019-02-17 10:13 | Nephrology Consult Note ---
Date of Encounter: 02/17/19 Time of Encounter: 10:10 Assessment and Plan (1) ESRD (end stage renal disease) on dialysis Current Visit: Yes Status: Acute Current regimen is TTS at [facility]. HD in progress for today, plan for UF/HD tomorrow. Renal diet Renal vitamins Strict I/O Avoid nephrotoxins and renal dose all medications. (2) Acute and chronic respiratory failure Current Visit: Yes Status: Acute Continue supplemental oxygen, per primary. Qualifiers: Respiratory failure complication: hypoxia Qualified Code(s): J96.21 - Acute and chronic respiratory failure with hypoxia (3) Volume overload Current Visit: Yes Status: Acute Will offer additional UF and HD as needed Qualifiers: Hypervolemia type: unspecified Qualified Code(s): E87.70 - Fluid overload, unspecified (4) Anemia Current Visit: Yes Status: Chronic In the globin is 11.4 today, stable. Qualifiers: Anemia type: iron deficiency Iron deficiency anemia type: unspecified iron deficiency Qualified Code(s): D50.9 - Iron deficiency anemia, unspecified History of Present Illness - Reason for Consult Consult date: 02/17/19 end stage renal disease Requesting physician: Alok Jackson - Chief Complaint difficulty in breathing - History of Present Illness Ms. Weeks is a 68 year old female who ended to ED via EMS for shortness of breath. Started on Sunday morning 02/16/19 and progressively worsened throughout the day. PMH: asthma, COPD, CVA, hyperlipidemia, hypertension, and ESRD on dialysis. Current regimen is TTS at [facility]. Last HD session was Sunday without complication. She has missed previous sessions in the past, but has been pretty consistent since last hospitalization. Has been on dialysis since October of this year, related to IV contrast. At this time she will likely be on dialysis permanently, or and considered end-stage renal disease. She is at home with . She is a former smoker, denies EtOH or illicit drug use. Unsure of any family history of chronic kidney disease or hemodialysis. Past Med Surg Social Fam HX - Past Medical History Medical history: asthma, cancer, COPD, CVA, dialysis, hyperlipidemia, hypertension, myocardial infarction, other Additional medical history: no deficits from previous CVA. lung cancer - upper left lobectomy Psychiatric history: anxiety - Past Surgical History Surgical History: appendectomy, cholecystectomy Additional surgical history: left upper lobe removed. 3 cardiac stents. dialysis port right upper chest - Social History Smoking Status: Former smoker Smokeless Tobacco Status: No Alcohol use: none Drug use: none Medications and Allergies Atenolol [Tenormin] 50 mg PO DAILY 10/21/18 [History] Clopidogrel [Plavix] 75 mg PO DAILY 10/21/18 [History] Fluticasone/Salmeterol [Advair 250-50 Diskus] 1 puff IH BID 10/21/18 [History] Levothyroxine [Synthroid] 75 mcg PO QAM 10/21/18 [History] Losartan Potassium [Cozaar] 50 mg PO BID 10/21/18 [History] Omeprazole [PriLOSEC] 20 mg PO DAILY 10/21/18 [History] amLODIPine [Norvasc] 5 mg PO DAILY 10/21/18 [History] Albuterol Sulfate [Ventolin Hfa] 2 puff IH Q4H PRN 11/14/18 [History] Aspirin [Adult Aspirin Regimen] 81 mg PO DAILY 11/14/18 [History] Ipratropium/Albuterol Sulfate [Iprat-Albut 0.5-3(2.5) mg/3 ml] 3 ml IH Q6H PRN 11/14/18 [History] Ferrous Sulfate [Iron] 325 mg PO WEFR 01/17/19 [History] Isosorbide MONOnitrate (24 HR) [Imdur] 30 mg PO DAILY 01/17/19 [History] Bisacodyl [Woman's Laxative] 5 mg PO DAILY PRN 02/03/19 [History] LORazepam [Ativan] 0.5 mg PO QAM 02/04/19 [History] Midodrine [ProAmatine] 5 mg PO TUTHSA 02/04/19 [History] OLANZapine [Zyprexa] 2.5 mg PO DAILY 02/04/19 [History] LORazepam [Ativan] 0.5 mg PO BID #0 02/05/19 [Rx] Allergy/AdvReac Type Severity Reaction Status Date / Time atorvastatin Allergy See Verified 02/17/19 03:57 Comments doxycycline Allergy Rash Verified 02/17/19 03:57 Sulfa (Sulfonamide Allergy Rash Verified 02/17/19 03:57 Antibiotics) codeine AdvReac Nausea Verified 02/17/19 03:57 hydrocodone [From Vicodin] AdvReac Irritable Verified 02/17/19 03:57 Review of Systems All Systems review (narrative): The remainder of the systems are negative. Constitutional: fatigue, no chills, no fever(s) Cardiovascular: dyspnea, dyspnea on exertion, no chest pain Respiratory: dyspnea Gastrointestinal: no diarrhea, no nausea, no vomiting Genitourinary Female: no hematuria, no urinary frequency, no urinary hesitancy Exam - Vital Signs Vital signs: Initial Vital Signs Temp Pulse Resp BP Pulse Ox 97.9 F 94 24 175/105 100 02/17/19 01:22 02/17/19 01:22 02/17/19 01:22 02/17/19 01:22 02/17/19 01:22 Vital Signs - Last 8 Hours Temp Pulse Resp BP Pulse Ox 02/17/19 06:43 97.5 F L 84 22 160/92 99 02/17/19 05:00 20 155/97 02/17/19 03:59 87 26 162/98 96 02/17/19 03:40 89 26 169/90 95 Intake and Output 02/16/19 02/17/19 02/17/19 23:59 07:59 15:59 Intake Total 0 / 0 Balance 0 / 0 Intake: Oral 0 / 0 Other: Meal NPO Percent of Meal Consumed 0% Weight 57 kg Blood Glucose* 141 Patient Weight 02/17/19 23:59 Weight 57 kg - General Appearance General appearance: well-developed, well-nourished EENT: ATNC, hearing intact, vision intact Neck: supple Respiratory: clear Cardiology: no edema, normal S1, normal S2 - Dialysis Access Dialysis Vascular Access: Venous Catheter (DRSG C/D/I) Gastrointestinal: normoactive bowel sounds, no tenderness, no guarding Integumentary: no rash, warm and dry Neurologic: alert and oriented x3 Musculoskeletal: no deformities, no erythema Psychiatric: mood/affect appropriate, cooperative Results - Lab Results 02/17/19 01:40 02/17/19 01:40 Most recent lab results 02/17/19 01:40 Calcium 9.1 Consult Discharge Plan - Plan Referrals: Patricia Topete CNP [Primary Care Provider] -
[2019-02-17] MEDS: Budesonide/Formoterol 80/4.5 MDI IH SCH ×2 (11:31→20:04)
--- NOTE | 2019-02-17 14:29 | Electrocardiograph Report ---
[address] [address] Test Date: 2019-02-17 Pat Name: Clemencia Weeks Department: [id number] Room: [facility] Gender: Meter Setter: : 1950 Requested By: [id number] Order Number: [id number] Reading MD: Robert Shankar Measurements Intervals Isabella Rate: 90 P: 53 VA: 161 QRS: 62 QRSD: 91 T: 57 QT: 377 QTc: 462 Interpretive Statements Sinus rhythm BASELINE ARTIFACT Electronically Signed On 02-17-2019 14:28:18 EDT by Robert Shankar
[2019-02-17] MEDS: Aspirin Enteric Coated 81 MG Tablet PO SCH (14:42)
[2019-02-17] MEDS: OLANZapine 5 MG TAB.RAPDIS PO SCH (14:42)
[2019-02-17] MEDS: *HR* Heparin 5,000 UNIT/ML VIAL SQ SCH (17:06)
[2019-02-17] MEDS: Ondansetron 4 MG/2 ML VIAL IVP PRN (17:25)
--- NOTE | 2019-02-17 17:48 | Internal Med Progress Note ---
Hospitalist Progress Note - Encounter Date of Encounter: 02/17/19 Time of Encounter: 17:46 - Subjective Interval History: Patient had dialysis this morning. Breathing feels better but is experiencing some abdominal discomfort after eating and is little bit nauseous. Talked to patient about CODE STATUS multiple times today and gets confused about the to pic. Agreed on full code for now and revisiting conversation at a later date. - Exam Vitals: Temp Pulse Resp BP Pulse Ox 98.5 F 93 16 150/79 100 02/17/19 16:33 02/17/19 16:33 02/17/19 16:33 02/17/19 16:33 02/17/19 16:33 Exam: Gen.: Vitals noted. No acute distress. AAOx3, resting comfortably in bed. HEENT: PERRL/EOMI, oropharynx clear, Normocephalic, atraumatic, MMM Neck: Supple. No adenopathy. No thyroid nodules. Cardiac: RRR, mildly tachycardic, no murmur, +S1/S2, 2+ BLE edema Pulmonary: Rales present in bases, decreased in bases. Shallow respirations, equal chest expansion, unlabored breathing Abdomen: soft, nontender, BS noted, no guarding, no palpable HSM Skin: warm and dry, no visible lesions. MSK: ROM intact, no joint swelling noted, gait no assessed while in bed. Non tender calf or clubbing Neuro: A&Ox3, moves all extremities, no focal deficits, sensation intact Psych: Appropriate mood and behavior, AOx3 - Assessment and Plan (1) Acute and chronic respiratory failure with hypoxia Current Visit: Yes Status: Acute Assessment and Plan: Patient with history of end-stage renal disease due to dialysis, diastolic heart failure, HTN, and remote history of lung cancer status post lobectomy presents with acute on chronic hypoxic respiratory failure in the setting of reported compliance with dialysis sessions, evidence of hypervolemia on exam, BNP of 3913, and chest x-ray with evidence of hypervolemia and left pleural effusion. -Apparently not pulling off enough fluid during HD sessions because patient is going hypotensive. Therefore has been building up volume leading to worsening hypertension resulting in escalation of outpatient blood pressure medications -Also has been losing weight so "dry weight" has been inaccurate, resulting in less fluid taken off then should be -Echo this admission with new onset systolic heart failure EF 35%. Previous diastolic heart failure but EF preserved on last echocardiogram. PLAN: - Discontinuation of amlodipine, atenolol, and Imdur altogether and hold Losartan and Metoprolol on HD days - Midodrine 5mg on HD days T/T/S - HD with ultrafiltrration per nephrology - Nephrology consultation, patient recommendations (2) Volume overload Current Visit: Yes Status: Acute Assessment and Plan: Volume removal with hemodialysis (3) ESRD (end stage renal disease) on dialysis Current Visit: Yes Status: Acute Assessment and Plan: See above (4) Congestive heart failure (CHF) Current Visit: No Status: Acute Assessment and Plan: Echo this admission with new onset systolic heart failure EF 35%. Previous diastolic heart failure but EF preserved on last echocardiogram. Hx of CAD s/p 1-vessel PCI in September 2018. - Volume removal with hemodialysis - Continue a Losartan. Add Metoprolol. - Continue home ASA and Plavix - We will discuss cardiology involvement this admission with patient and family - new systolic heart failure may mean new ischemic disease (5) Weight loss, non-intentional Current Visit: Yes Status: Acute Assessment and Plan: Significant weight loss in the last few months. History of lung cancer. - We will discuss with oncology if surveillance imaging would be indicated (6) CAD (coronary artery disease) Current Visit: Yes Status: Acute (7) Pleural effusion Current Visit: No Status: Acute Assessment and Plan: Most notable on left. - We will consider diagnostic and therapeutic thoracentesis this admission given history of lung cancer makes this suspicious - Time Spent with Patient Total time spent is greater than 50% in coordination of care (as documented) at patient's floor/unit and/or counseling patient: Internal Medicine: Result - Labs CBC & Chem 7: 02/17/19 01:40 02/17/19 01:40 Labs: Short CBC 02/17/19 Range/Units 01:40 WBC 9.4 (4.3-11.1) K/mcL Hgb 11.4 L (11.5-15.4) g/dL Hct 38.1 (35.3-44.9) % Plt Count 267 (140-400) K/mcL Neutrophils # 4.2 (1.6-8.9) K/mcL BMP 02/17/19 01:40 Sodium 135 L Potassium 5.0 Chloride 99 Carbon Dioxide 25 BUN 18 Creatinine 4.66 H Glucose 137 H Calcium 9.1 Cardiac Enzymes 02/17/19 Range/Units 01:40 Troponin I < 0.03 (< 0.04) ng/mL Liver Function 02/17/19 Range/Units 01:40 Total Bilirubin 0.4 (0.3-1.0) mg/dL AST 16 (13-39) Units/L ALT 8 (7-52) Units/L Alkaline Phosphatase 92 (34-104) Units/L Albumin 3.8 (3.5-5.7) g/dL - Impressions Impressions Chest X-Ray 02/17/19 01:33 IMPRESSION: Diffuse bilateral reticular infiltrates. Infiltrate at the left lung base. Small left pleural effusion. D/ / Olivia Lee MD / Olivia Lee MD Interpreting Provider: Olivia Lee MD Echocardiogram 02/17/19 06:46 Impressions: LVEF grossly moderately reduced. All LV wall not well visualized. Moderate global and segmental left ventricular systolic dysfunction. Mild left ventricular diastolic dysfunction. Normal right ventricular structure and function. No significant valvular dysfunction. No evidence of pulmonary hypertension. Recommend limited echo with definity for LVEF and wall motion. Left Ventricular Wall Motion: Rest Echo Findings The apical septal, mid inferior septal, basal inferior septal, apical lateral, mid anterior lateral, basal anterior lateral, mid anterior septal and basal anterior septal collado were hypokinetic. The mid inferior lateral and basal inferior lateral collado were akinetic. The apex, apical inferior, mid inferior, basal inferior, apical anterior, mid anterior and basal anterior collado were not visualized. Findings: Study Quality * Technically sub-optimal due to poor echocardiographic windows. ECG Findings * Sinus rhythm with PVCs. Left Ventricle * LVEF grossly 35-40%. All LV wall not well visualized. * Normal LV chamber size, wall thickness. * Moderate global and segmental left ventricular systolic dysfunction. * Mild left ventricular diastolic dysfunction. Right Ventricle * Normal right ventricular structure and function. Left Atrium * Normal left atrial size. Right Atrium * Normal right atrial size. Interatrial Septum * Interatrial septum not well evaluated. Aortic Valve * Aortic valve not well visualized. * No aortic stenosis. * Trace aortic regurgitation. Mitral Valve * Normal mitral valve structure. * No mitral stenosis. * Trace mitral regurgitation. Tricuspid Valve * Normal tricuspid valve structure. * No tricuspid stenosis. * Trace tricuspid regurgitation. * Unable to estimate RVSP due to lack of TR jet. * No evidence of pulmonary hypertension. * Estimated RA pressure is 3 mmHg. Pulmonic Valve * Pulmonic valve is not well visualized. * No pulmonic stenosis. * No pulmonic regurgitation. Aorta * Normally sized aortic root. Pericardium * The pericardium appears normal. IVC * The IVC is not dilated. * > 50% respiratory change Consult Discharge Plan - Plan Referrals: Patricia Topete, EELER [Primary Care Provider] - (2) Volume overload Qualifiers: Hypervolemia type: unspecified Qualified Code(s): E87.70 - Fluid overload, unspecified (4) Congestive heart failure (CHF) Qualifiers: Heart failure type: combined systolic and diastolic Heart failure chronicity: acute Qualified Code(s): I50.41 - Acute combined systolic (congestive) and diastolic (congestive) heart failure (6) CAD (coronary artery disease) Qualifiers: Coronary Disease-Associated Artery/Lesion type: unspecified vessel or lesion type [place] vs. transplanted heart: [place] heart Associated angina: without angina Qualified Code(s): I25.10 - Atherosclerotic heart disease of [place] coronary artery without angina pectoris
[2019-02-17] MEDS: Metoprolol XL (24 HR) Succ 25 MG TAB.ER.24H PO SCH (20:20)
[2019-02-18] MEDS: *HR* Heparin 5,000 UNIT/ML VIAL SQ SCH ×2 (05:17→17:45)
[2019-02-18] MEDS ORDERED: 0.9 % Sodium Chloride 250 ML IVC PRN (07:22)
[2019-02-18 07:31] LABS: Calcium 8.7 mg/dL (8.6-10.3); Potassium 4.7 mEq/L (3.5-5.1)
[2019-02-18] MEDS: OLANZapine 5 MG TAB.RAPDIS PO SCH (07:34)
[2019-02-18] MEDS: Aspirin Enteric Coated 81 MG Tablet PO SCH (07:34)
[2019-02-18] MEDS ORDERED: Isovue-370 500 ML BOTTLE IVP ONE (07:36)
[2019-02-18] MEDS: *HR* LORazepam 0.5 MG TABLET PO PRN ×2 (07:47→20:36)
--- NOTE | 2019-02-18 08:46 | Nephrology Progress Note ---
Date of Encounter: 02/18/19 Time of Encounter: 08:44 - Assessment and Plan (1) ESRD (end stage renal disease) on dialysis Current Visit: Yes Status: Acute Current regimen is TTS at [facility]. HD and progress for today and was completed as well yesterday. Renal diet Renal vitamins Strict I/O Avoid nephrotoxins and renal dose all medications. HD nurses report trouble with Permcath line, venous port is alarming. May need to use cathflow or replace line all together. (2) Acute and chronic respiratory failure Current Visit: Yes Status: Acute Continue supplemental oxygen, per primary. Qualifiers: Respiratory failure complication: hypoxia Qualified Code(s): J96.21 - Acute and chronic respiratory failure with hypoxia (3) Volume overload Current Visit: Yes Status: Acute Will offer additional UF and HD as needed . Extra HD treatment and progress for today. Qualifiers: Hypervolemia type: unspecified Qualified Code(s): E87.70 - Fluid overload, unspecified (4) Anemia Current Visit: Yes Status: Chronic Goal Hgb is 10-11. No new CBC for today. Qualifiers: Anemia type: iron deficiency Iron deficiency anemia type: unspecified iron deficiency Qualified Code(s): D50.9 - Iron deficiency anemia, unspecified Subjective Principal diagnosis: difficulty in breathing Interval history: Seen and examined and hemodialysis, tolerating well. Denies chest pain or shortness of breath. Denies nausea, vomiting or diarrhea. She is overall feeling a little better. Objective - Vital Signs Vital signs: Vital Signs Temp Pulse Resp BP Pulse Ox 02/18/19 06:49 98.1 F 76 20 153/81 99 02/18/19 05:10 98.4 F 73 16 140/79 100 02/18/19 00:14 98.3 F 88 16 153/90 100 02/17/19 20:45 98.1 F 91 16 165/97 100 02/17/19 20:43 100 02/17/19 20:04 16 98 02/17/19 16:33 98.5 F 93 16 150/79 100 02/17/19 12:40 97.6 F 18 136/82 02/17/19 12:24 133/90 02/17/19 12:15 121/86 02/17/19 12:00 134/94 02/17/19 11:45 146/90 02/17/19 11:30 149/89 02/17/19 11:15 146/92 02/17/19 11:00 153/99 02/17/19 10:45 152/97 02/17/19 10:30 157/99 02/17/19 10:15 156/98 02/17/19 10:00 162/95 02/17/19 09:45 162/107 02/17/19 09:30 174/104 02/17/19 09:15 166/98 02/17/19 09:00 97.8 F 20 160/89 Intake and Output 02/17/19 02/18/19 02/18/19 23:59 07:59 15:59 Intake Total 160 / 760 100 / 100 Output Total 100 / 3180 0 / 0 Balance 60 / -2420 100 / 100 Intake: Oral 160 / 160 100 / 100 Output: Catheter 100 / 100 0 / 0 Other: Meal Dinner Percent of Meal Consumed 10% Weight 57.3 kg Blood Glucose* 120 120 Patient Weight 02/18/19 23:59 Weight 57.3 kg - General Appearance General appearance: Present: frail EENT: Present: ATNC, hearing intact, vision intact Neck: Present: supple Respiratory: Present: clear Cardiology: Present: no edema, normal S1, normal S2 Dialysis Vascular Access: Venous Catheter (Dressing clean dry and intact.) Gastrointestinal: Present: normoactive bowel sounds, no tenderness, no guarding Integumentary: Present: no rash, warm and dry Neurologic: Present: alert and oriented x3 Musculoskeletal: Present: no deformities, no erythema Psychiatric: Present: mood/affect appropriate, cooperative - Lab 02/17/19 01:40 02/18/19 06:33 Most recent lab results 02/18/19 06:33 Calcium 8.7 Consult Discharge Plan - Plan Referrals: Efrem,Patricia Dick MAGAZINE WRITER [Primary Care Provider] -
[2019-02-18] MEDS: Budesonide/Formoterol 80/4.5 MDI IH SCH ×2 (10:29→20:12)
[2019-02-18] MEDS: Metoprolol XL (24 HR) Succ 25 MG TAB.ER.24H PO SCH (11:28)
[2019-02-18] MEDS: Ondansetron 4 MG/2 ML VIAL IVP PRN (14:48)
[2019-02-18 17:53] LABS: RBC,Pleural Fluid 0.022 M/mcL
[2019-02-18 17:54] LABS: Appearance of Pleural Fl Cloudy (Clear)
[2019-02-18 18:13] LABS: LDH,Pleural Fluid 57 Units/L (No Ref Range); Total Protein,Pleural Fluid < 3.0 g/dL
--- NOTE | 2019-02-18 18:20 | Procedure Note ---
Date of procedure: 02/18/19 Pre-op diagnosis: L pleural effusion Post-op diagnosis: same Procedure: Thoracentesis Procedure Note PROCEDURE: Diagnostic and Therapeutic Thoracentesis CONSENT: Obtained FINANCE EFFECTIVENESS MANAGER: Morro Jackson MD PROCEDURE PERFORMED: INDICATION: Pleural Effusion A time-out was performed prior to the procedure. A left pleural effusion was visualized with ultrasound and site was marked. Chlorhexadine was used to prep the skin. The patient was then draped in steril fashion. Chlorhexadine was again used to prep the skin. 10ml of 1% Lidocaine was used for local anesthesia. A safecentesis needle was used to access the pleural space and a catheter was placed that drained straw-colored fluid. This was attached to vacume containers and a total of 550ml of fluid was drained. The catheter was then removed. The procedure moved a considerable amount during the procedure. ESTIMATED BLOOD LOSS: <5ml COMPLICATIONS: None immediate. CXR ordered Morro Jackson MD [facility] Medicine Surgeon: Alok Jackson Was there an floral assistant present: Yes Assisted Living Care Manager: Soledad Rivera Estimated blood loss (cc): 5 Specimen: sent to lab Pathology: other Condition: stable Disposition: floor
--- NOTE | 2019-02-18 18:25 | Internal Med Progress Note ---
Hospitalist Progress Note - Encounter Date of Encounter: 02/18/19 Time of Encounter: 18:23 - Subjective Interval History: Patient weaning down on oxygen. Denies shortness of breath. Went down for an esophagram as recommended by outpatient speech providers to workup her nausea with oral intake, however, patient did not want to go through with this so pr ocedure was aborted. - Exam Vitals: Temp Pulse Resp BP Pulse Ox 98.2 F 74 18 116/75 100 02/18/19 17:11 02/18/19 17:11 02/18/19 17:11 02/18/19 17:11 02/18/19 17:11 Exam: Gen.: Vitals noted. No acute distress. AAOx3, resting comfortably in bed. HEENT: PERRL/EOMI, oropharynx clear, Normocephalic, atraumatic, MMM Neck: Supple. No adenopathy. No thyroid nodules. Cardiac: RRR, mildly tachycardic, no murmur, +S1/S2, 2+ BLE edema Pulmonary: Rales present in bases, decreased in bases. Shallow respirations, equal chest expansion, unlabored breathing Abdomen: soft, nontender, BS noted, no guarding, no palpable HSM Skin: warm and dry, no visible lesions. MSK: ROM intact, no joint swelling noted, gait no assessed while in bed. Non tender calf or clubbing Neuro: A&Ox3, moves all extremities, no focal deficits, sensation intact Psych: Appropriate mood and behavior, AOx3 - Assessment and Plan (1) Acute and chronic respiratory failure with hypoxia Current Visit: Yes Status: Acute Assessment and Plan: Patient with history of end-stage renal disease due to dialysis, diastolic heart failure, HTN, and remote history of lung cancer status post lobectomy presents with acute on chronic hypoxic respiratory failure in the setting of reported compliance with dialysis sessions, evidence of hypervolemia on exam, BNP of 3913, and chest x-ray with evidence of hypervolemia and left pleural effusion. -Apparently not pulling off enough fluid during HD sessions because patient is going hypotensive. Therefore has been building up volume leading to worsening hypertension resulting in escalation of outpatient blood pressure medications -Also has been losing weight so "dry weight" has been inaccurate, resulting in less fluid taken off then should be -Echo this admission with new onset systolic heart failure EF 35%. Previous diastolic heart failure but EF preserved on last echocardiogram. -Reps failure resolving with more fluid taken off during dialysis. This is also leading to decreased blood pressure despite holding most blood pressure medications. Did not need Midodrine during dialysis so will be discontinued PLAN: - Discontinuation of amlodipine, atenolol, and Imdur altogether and hold Losartan and Metoprolol on HD days - HD with ultrafiltrration per nephrology - Nephrology consultation, patient recommendations (2) Volume overload Current Visit: Yes Status: Acute Assessment and Plan: Volume removal with hemodialysis (3) Pleural effusion Current Visit: No Status: Acute Assessment and Plan: Most notable on left. Likely 2/2 hypervolemia, however, hx of lung cancer and recent weight loss. Diagnostic and therapeutic thoracentesis completed today with 550ml removed. "possible tiny left apical pneumothorax" noted on CXR, however, this is more likely due to air introduced with thoracentesis needle than a true pneumothorax given patient was very restless with procedure at patient is breathing and sating well on 1-2L of oxygen after procedure. - Repeat CXR tomorrow - F/u pleural studies (4) ESRD (end stage renal disease) on dialysis Current Visit: Yes Status: Acute Assessment and Plan: History of end-stage renal disease with hemodialysis Sunday. - Problems with catheter today during dialysis. Will be trouble-shooted by nephrology (5) Congestive heart failure (CHF) Current Visit: No Status: Acute Assessment and Plan: Echo this admission with new onset systolic heart failure EF 35%. Previous diastolic heart failure but EF preserved on last echocardiogram. Hx of CAD s/p 1-vessel PCI in September 2018. - Volume removal with hemodialysis - Continue Losartan. Add Metoprolol. - Continue home ASA and Plavix - We will discuss cardiology involvement this admission with patient and family - new systolic heart failure may mean new ischemic disease (6) Weight loss, non-intentional Current Visit: Yes Status: Acute Assessment and Plan: Significant weight loss in the last few months in the setting of nausea and gagging with eating, recently being started on dialysis, and history of lung cancer as well. Was seen by SEQUINS SPOOLER outpatient and recommended an esophagram. Tried obtaining this today but patient refused. Nurse says she hasn't witnessed any gagging during eating and patient has been eating a good portion of her meals. CT chest today without evidence of recurrent cancer. Thoracentesis completed and will send studies for cytology. - Diatician consult - F/u cytology - Consider esophagram in the future (7) CAD (coronary artery disease) Current Visit: Yes Status: Acute Assessment and Plan: Hx of CAD s/p 1-vessel PCI in September 2018. - Continue ASA and Plavix DVT Prophylaxis: heparin - Time Spent with Patient Total time spent is greater than 50% in coordination of care (as documented) at patient's floor/unit and/or counseling patient: Internal Medicine: Result - Labs CBC & Chem 7: 02/17/19 01:40 02/18/19 06:33 Labs: BMP 02/18/19 06:33 Sodium 132 L Potassium 4.7 Chloride 97 L Carbon Dioxide 25 BUN 21 Creatinine 3.90 H Glucose 134 H Calcium 8.7 - ABG Interpretation ABG results: PT/INR, D-dimer PT 11.0 Seconds (9.4-12.1) 02/18/19 07:32 - Impressions Impressions Chest CT 02/18/19 07:36 IMPRESSION: Pleural effusions with atelectasis superimposed on emphysema with interval development of a focal infiltrate posterior segment right upper lobe. The findings likely represent sequela of congestive heart failure. 1.6 cm saccular aneurysm posterior aspect mid to distal 3rd descending thoracic aorta unchanged from prior exam. D/ / 02/18/2019 09:00:07 Jose Manuel Rogers MD / rigo Interpreting Provider: Jose Manuel Rogers MD Chest X-Ray 02/18/19 17:07 IMPRESSION: Small left pleural effusion, slightly decreased in size from the prior study. Possible tiny left apical pneumothorax, measuring 3 mm. Significant decrease in the bilateral interstitial opacities bilaterally, compatible with improved pulmonary edema. D/ / Ben Montez / Ben Montez Interpreting Provider: Ben Montez Consult Discharge Plan - Plan Referrals: Patricia Topete SEPARATOR OPERATOR [employer] [Primary Care Provider] - (2) Volume overload Qualifiers: Hypervolemia type: unspecified Qualified Code(s): E87.70 - Fluid overload, unspecified (5) Congestive heart failure (CHF) Qualifiers: Heart failure type: combined systolic and diastolic Heart failure chronicity: acute Qualified Code(s): I50.41 - Acute combined systolic (congestive) and diastolic (congestive) heart failure (7) CAD (coronary artery disease) Qualifiers: Coronary Disease-Associated Artery/Lesion type: unspecified vessel or lesion type [place] vs. transplanted heart: [place] heart Associated angina: without angina Qualified Code(s): I25.10 - Atherosclerotic heart disease of [place] coronary artery without angina pectoris
[2019-02-18 19:08] LABS: Monocytes,Pleural Fluid 0 %
[2019-02-18 19:09] LABS: Basophils,Pleural Fluid 0 %
[2019-02-19] MEDS: *HR* Heparin 5,000 UNIT/ML VIAL SQ SCH ×2 (06:14→17:50)
[2019-02-19] MEDS: Budesonide/Formoterol 80/4.5 MDI IH SCH ×2 (07:27→22:00)
[2019-02-19 07:51] LABS: BUN/Creatinine Ratio 5 (6-26); Blood Urea Nitrogen 15 mg/dL (8-23); Carbon Dioxide 28 mEq/L (23-29); Chloride 94 mEq/L (98-107); Glucose 97 mg/dL (70-105); Osmolality,Calculated 279 (280-300); Potassium 3.6 mEq/L (3.5-5.1); Sodium 134 mEq/L (136-145); eGFR For African Americans 17 (> 60); eGFR For Non-African Americans 14 (> 60)
[2019-02-19] MEDS: Aspirin Enteric Coated 81 MG Tablet PO SCH (08:52)
[2019-02-19] MEDS: Metoprolol XL (24 HR) Succ 25 MG TAB.ER.24H PO SCH (08:52)
[2019-02-19] MEDS: OLANZapine 5 MG TAB.RAPDIS PO SCH (08:53)
[2019-02-19 09:22] LABS: Lactate Dehydrogenase 184 Units/L (140-271); Total Protein 5.9 g/dL (6.4-8.9)
[2019-02-19] MEDS: Ondansetron 4 MG/2 ML VIAL IVP PRN (10:17)
[2019-02-19] MEDS ORDERED: *HR* Promethazine 25 MG/ML VIAL IVP PRN (11:24)
[2019-02-19] MEDS: Furosemide 40 MG TABLET PO SCH (11:41)
--- NOTE | 2019-02-19 12:00 | Internal Med Progress Note ---
Hospitalist Progress Note - Encounter Date of Encounter: 02/19/19 Time of Encounter: 11:56 - Subjective Interval History: Patient complaining of increased nausea this morning. She states that it began after she ate applesauce with MiraLAX. She began to develop some abdominal pain after turning the same time. She denies any fevers or chills overnight. She does report that her breathing is better overall and she is able to breathe easier since she underwent thoracentesis yesterday. - Exam Vitals: Temp Pulse Resp BP Pulse Ox 97.9 F 64 18 167/90 100 02/19/19 10:54 02/19/19 10:54 02/19/19 10:54 02/19/19 10:54 02/19/19 10:54 Exam: General: Patient is alert, moderate distress, oriented x 3 Respiratory: Good respiratory effort. Normal breath sounds. No wheezing or crackles. Cardiovascular: Regular rate and rhythm. s1 and s2 normal No clicks, rubs, ga llops, or murmurs. No pedal edema Abdomen: Abdomen is soft, nontender. Bowel sounds are present Musculoskeletal: Spontaneously moving all extremities Skin: warm, dry, intact. Neuro: Alert oriented x 3 normal cranial nerves, no focal deficits - Assessment and Plan (1) Acute and chronic respiratory failure with hypoxia Current Visit: Yes Status: Acute (2) Congestive heart failure (CHF) Current Visit: Yes Status: Acute (3) Pleural effusion Current Visit: Yes Status: Acute (4) Volume overload Current Visit: Yes Status: Acute (5) ESRD (end stage renal disease) on dialysis Current Visit: Yes Status: Acute (6) Weight loss, non-intentional Current Visit: Yes Status: Acute (7) CAD (coronary artery disease) Current Visit: Yes Status: Acute DVT Prophylaxis: On subcutaneous heparin - Summary of Assessment and Plan Summary of Assessment and Plan: Acute on chronic respiratory failure with hypoxia: Continue O2 supplementation. Patient on 2 L nasal cannula. Doing much better overall. Bilateral pleural effusion: Thoracentesis done yesterday on the left side with removal of 550 mL of fluid. This appears to be transudative. Chest x-ray done yesterday showed a possible tiny apical pneumothorax on the left side. Check repeat x-ray done today does not show any pneumothorax. End-stage renal disease on hemodialysis: Continue dialysis per nephrology recommendations. Intractable nausea and vomiting: Patient refused esophagogram yesterday. Will continue supportive care with antiemetics. Goals of care: Discussed goals of care with patient and offered palliative care. Patient wants to think about it. Wishes to remain full code at this time but seems to be inclined towards DNR. Acute on chronic systolic and diastolic congestive heart failure: Echocardiogram done here showed reduced ejection fraction with systolic dysfunction. We will consult cardiology to evaluate patient as this could mean ischemic disease. Continue volume management with dialysis. Weight loss: Patient was evaluated by speech therapy and recommended esophagogram but had refused yesterday. Patient having nausea and vomiting today. We will treat symptomatically. Coronary artery disease: Continue aspirin, Plavix and statin. Patient did have 1 vessel PCI in September 2018. We will consult cardiology as patient does show reduced ejection fraction. - Time Spent with Patient Total time spent is greater than 50% in coordination of care (as documented) at patient's floor/unit and/or counseling patient: Internal Medicine: Result - Labs CBC & Chem 7: 02/17/19 01:40 02/19/19 06:39 Labs: BMP 02/19/19 06:39 Sodium 134 L Potassium 3.6 Chloride 94 L Carbon Dioxide 28 BUN 15 Creatinine 3.30 H Glucose 97 Calcium 9.0 - ABG Interpretation ABG results: PT/INR, D-dimer PT 11.0 Seconds (9.4-12.1) 02/18/19 07:32 - Impressions Impressions Chest X-Ray 02/18/19 17:07 IMPRESSION: Small left pleural effusion, slightly decreased in size from the prior study. Possible tiny left apical pneumothorax, measuring 3 mm. Significant decrease in the bilateral interstitial opacities bilaterally, compatible with improved pulmonary edema. D/ / Ben Montez / Ben Montez Interpreting Provider: Ben Montez Chest X-Ray 02/19/19 05:00 IMPRESSION: Unchanged small bilateral pleural effusions, left greater than right. Unchanged left basilar pulmonary opacity. Recommend radiographic follow-up to complete resolution. No convincing radiographic evidence of pneumothorax on current examination. Findings suggestive of underlying COPD. RECOMMENDATION: Radiographic follow-up to complete resolution. D/ / 02/19/2019 07:36:47 Tenzin Montanez MD / caro Interpreting Provider: Tenzin Montanez MD Consult Discharge Plan - Plan Referrals: Patricia Topete CNP [Primary Care Provider] - (2) Congestive heart failure (CHF) Qualifiers: Heart failure type: combined systolic and diastolic Heart failure chronicity: acute Qualified Code(s): I50.41 - Acute combined systolic (congestive) and diastolic (congestive) heart failure (4) Volume overload Qualifiers: Hypervolemia type: unspecified Qualified Code(s): E87.70 - Fluid overload, unspecified (7) CAD (coronary artery disease) Qualifiers: Coronary Disease-Associated Artery/Lesion type: unspecified vessel or lesion t ype [place] vs. transplanted heart: [place] heart Associated angina: without angina Qualified Code(s): I25.10 - Atherosclerotic heart disease of [place] coronary artery without angina pectoris
--- NOTE | 2019-02-19 12:20 | Nephrology Progress Note ---
Date of Encounter: 02/19/19 Time of Encounter: 12:17 - Assessment and Plan (1) ESRD (end stage renal disease) on dialysis Current Visit: Yes Status: Acute Current regimen is TTS at [facility]. No HD today. Plan for HD tomorrow. Renal diet Renal vitamins Strict I/O Avoid nephrotoxins and renal dose all medications. 40 mg Lasix added daily to help with fluid overload. (2) Acute and chronic respiratory failure Current Visit: Yes Status: Acute Continue supplemental oxygen, per primary. Qualifiers: Respiratory failure complication: hypoxia Qualified Code(s): J96.21 - Acute and chronic respiratory failure with hypoxia (3) Volume overload Current Visit: Yes Status: Acute Will offer additional UF and HD as needed . . Qualifiers: Hypervolemia type: unspecified Qualified Code(s): E87.70 - Fluid overload, unspecified (4) Anemia Current Visit: Yes Status: Chronic Goal Hgb is 10-11. No new CBC for today. Qualifiers: Anemia type: iron deficiency Iron deficiency anemia type: unspecified iron deficiency Qualified Code(s): D50.9 - Iron deficiency anemia, unspecified Subjective Principal diagnosis: difficulty in breathing Interval history: Seen and examined doing well. Denies chest pain or shortness of breath. Denies nausea, vomiting or diarrhea. She is overall feeling a little better. at bedside, appears agitated asking about Thoracentesis yesterday and "what the plan" is. Informed him that from a renal stand point we will continue HD as her current regimen. Objective - Vital Signs Vital signs: Vital Signs Temp Pulse Resp BP Pulse Ox 02/19/19 10:54 97.9 F 64 18 167/90 100 02/19/19 07:27 18 98 02/19/19 06:58 98.5 F 75 18 148/81 100 02/19/19 03:37 98.5 F 71 20 153/82 100 02/18/19 23:37 98.4 F 99 20 150/76 99 02/18/19 20:44 99 02/18/19 20:24 98.2 F 76 20 156/86 99 02/18/19 20:13 18 100 02/18/19 17:11 98.2 F 74 18 116/75 100 02/18/19 13:05 97.5 F L 74 18 123/83 98 02/18/19 12:45 97.9 F 18 129/79 Intake and Output 02/18/19 02/19/19 02/19/19 23:59 07:59 15:59 Output Total 0 / 0 Balance 0 / 0 Output: Urine 0 / 0 Other: Meal Dinner Percent of Meal Consumed 5% Weight 50.8 kg Blood Glucose* 135 95 Patient Weight 02/19/19 23:59 Weight 50.8 kg - General Appearance General appearance: Present: well-developed, well-nourished EENT: Present: ATNC, hearing intact, vision intact Neck: Present: supple Respiratory: Present: clear Cardiology: Present: no edema, normal S1, normal S2 Dialysis Vascular Access: Venous Catheter (DRSG C/D/I) Gastrointestinal: Present: normoactive bowel sounds, no tenderness, no guarding Integumentary: Present: no rash, warm and dry Neurologic: Present: alert and oriented x3 Musculoskeletal: Present: no deformities, no erythema Psychiatric: Present: mood/affect appropriate, cooperative - Lab 02/17/19 01:40 02/19/19 06:39 Most recent lab results 02/19/19 06:39 Calcium 9.0 Consult Discharge Plan - Plan Referrals: Patricia Topete CRYPTOLOGIC SUPERVISOR [Primary Care Provider] -
--- NOTE | 2019-02-19 12:59 | Cardiology Consult Note ---
<Joleen Loco - Last Filed: 02/19/19 12:54> Date of Encounter: 02/19/19 Time of Encounter: 12:54 Assessment and Plan (1) Congestive heart failure (CHF) Current Visit: Yes Status: Acute Per cardiology: -CHF noted on admission with Chest CT with pleural effusions. BNP 3913. -Has undergone thoracentesis this admission. -Denies worsening shortness of breath, currently on home dose of O2. -Euvolemic on exam. -On oral lasix. Of note, ESRD on HD. -TTE this admission with possibly moderately reduced LVEF, however was recommended for repeat limited TTE with definity. Previous TTE 10/2018 with LVEF 55%, SWMA noted. -Will repeat limited TTE with definity. -Strict i/os, fluid restriction, daily weights. -Will defer volume management to nephrology. Appreciate nephrology input. Qualifiers: Heart failure type: diastolic Heart failure chronicity: acute Qualified Code(s): I50.31 - Acute diastolic (congestive) heart failure (2) CAD (coronary artery disease) Current Visit: Yes Status: Chronic Per cardiology: -Known CAD s/p previous PCI. -Last [facility] 09/2018 with 25% mid LAD, 80% diagonal 1 with ANUPAM placed, 40% prox circ, 100% prox RCA with PROJECT DEVELOPMENT LEADER with left to right collaterals. -On asa, statin, BB, plavix. -Denies chest pain. -Continue dual anti-platelet therapy uninterrrupted for at least one year. Continue current medical therapy. Qualifiers: Coronary Disease-Associated Artery/Lesion type: [place] artery [place] vs. transplanted heart: [place] heart Associated angina: without angina Qualified Code(s): I25.10 - Atherosclerotic heart disease of [place] coronary artery without angina pectoris Discussion w patient/family: The assessment and plan as outlined above was discussed with the patient and/or family members who expressed understanding and agreement. All questions were answered. Thank you for involving us in the care of your patient. Please call with any questions. Discussed and reviewed with . History of Present Illness Consult date: 02/19/19 Requesting physician: Ayush Waggoner Consult reason: decreased LVEF Chief complaint: abdominal pain History of present illness: Ms. Weeks is a 68 year old female with a relevant past medical history of CAD s/p PCI, HTN, HLD, COPD, lung cancer, CVA, hypothyroidism, anxiety, fibromyalgia, OA, tobacco abuse, thoracic ascending aneurysm, ESRD on HD, who presented to [facility] with complaints of abdominal pain. Patient reports she has had intermittent abdominal pain and difficulty swallowing for months. States she "can't get food down." Patient states she has lost over 30 pounds unintentionally. Cardiology has been consulted for possibly reduced LVEF. Patient denies chest pain. Denies increased shortness of breath. Has COPD and is O2 dependent at home, currently on home dose of O2. Denies edema. Reports fatigue. Past Med Surg Social Fam HX - Past Medical History Attestation: Yes The following information was validated with the patient. Source: patient, old records reviewed, obtained from family Medical history: asthma, cancer, COPD, coronary artery disease, CVA, dialysis, hyperlipidemia, hypertension, myocardial infarction, other Additional medical history: no deficits from previous CVA. lung cancer - upper left lobectomy Psychiatric history: anxiety - Past Surgical History Surgical History: appendectomy, cholecystectomy Additional surgical history: left upper lobe removed. 3 cardiac stents. dialysis port right upper chest - Social History Smoking Status: Former smoker Smokeless Tobacco Status: No Alcohol use: none Drug use: none Medications and Allergies Atenolol [Tenormin] 50 mg PO DAILY 10/21/18 [History] Clopidogrel [Plavix] 75 mg PO DAILY 10/21/18 [History] Fluticasone/Salmeterol [Advair 250-50 Diskus] 1 puff IH BID 10/21/18 [History] Levothyroxine [Synthroid] 75 mcg PO QAM 10/21/18 [History] Losartan Potassium [Cozaar] 50 mg PO BID 10/21/18 [History] Omeprazole [PriLOSEC] 20 mg PO DAILY 10/21/18 [History] amLODIPine [Norvasc] 5 mg PO DAILY 10/21/18 [History] Albuterol Sulfate [Ventolin Hfa] 2 puff IH Q4H PRN 11/14/18 [History] Aspirin [Adult Aspirin Regimen] 81 mg PO DAILY 11/14/18 [History] Ipratropium/Albuterol Sulfate [Iprat-Albut 0.5-3(2.5) mg/3 ml] 3 ml IH Q6H PRN 11/14/18 [History] Ferrous Sulfate [Iron] 325 mg PO DAILY 01/17/19 [History] Isosorbide MONOnitrate (24 HR) [Imdur] 30 mg PO DAILY 01/17/19 [History] LORazepam [Ativan] 1 mg PO 1200 02/04/19 [History] Midodrine [ProAmatine] 5 mg PO TUTHSA 02/04/19 [History] OLANZapine [Zyprexa] 2.5 mg PO HS 02/04/19 [History] LORazepam [Ativan] 0.5 mg PO BID #0 02/05/19 [Rx] Ondansetron HCl [Zofran] 4 mg PO Q6H PRN 02/18/19 [History] Allergy/AdvReac Type Severity Reaction Status Date / Time atorvastatin Allergy See Verified 02/17/19 03:57 Comments doxycycline Allergy Rash Verified 02/17/19 03:57 Sulfa (Sulfonamide Allergy Rash Verified 02/17/19 03:57 Antibiotics) codeine AdvReac Nausea Verified 02/17/19 03:57 hydrocodone [From Vicodin] AdvReac Irritable Verified 02/17/19 03:57 All Systems Review: The remainder of the systems were reviewed and are negative - Cardiovascular Cardiovascular: as per HPI - Gastrointestinal Gastrointestinal: abdominal pain, dysphagia Physical Examination Vital Signs, Last 4 Hours Temp Pulse Resp BP Pulse Ox 02/19/19 10:54 97.9 F 64 18 167/90 100 General: Conversant, No Apparent Distress HEENT: Atraumatic, Normocephaly, Mucus Membranes Moist Neck: No JVD, Normal carotid pulses Cardiac: Reg Rate and Rhythm, Normal S1 and S2, No Murmur Lungs: Other (Lung sounds diminished throughout. ) Neuro: Alert and responsive, No focal deficits noted Abdomen: Soft, Non-Tender Skin: No rashes noted on visualized skin Musculoskeletal: No Chest Wall Tenderness Extremities: No Clubbing, No Cyanosis, No Edema, Normal Pulses Results 02/17/19 01:40 02/19/19 06:39 Lab Results Impressions Chest X-Ray 02/18/19 17:07 IMPRESSION: Small left pleural effusion, slightly decreased in size from the prior study. Possible tiny left apical pneumothorax, measuring 3 mm. Significant decrease in the bilateral interstitial opacities bilaterally, compatible with improved pulmonary edema. D/ / Ben Montez / Ben Montez Interpreting Provider: Ben Motnez Chest X-Ray 02/19/19 05:00 IMPRESSION: Unchanged small bilateral pleural effusions, left greater than right. Unchanged left basilar pulmonary opacity. Recommend radiographic follow-up to complete resolution. No convincing radiographic evidence of pneumothorax on current examination. Findings suggestive of underlying COPD. RECOMMENDATION: Radiographic follow-up to complete resolution. D/ / 02/19/2019 07:36:47 Tenzin Montanez MD / caro Interpreting Provider: Tenzin Montanez MD Active Medications Acetaminophen (Tylenol) 650 mg PO Q6HR PRN PRN Reason: Mild Pain/Fever Stop: 08/19/19 06:36 Albuterol Sulfate (Proventil Inhaler) 2 puff IH [id number] PRN PRN Reason: Shortness of Breath Stop: 08/19/19 08:01 Albuterol/Ipratropium (Duoneb) 3 ml IH [id number] PRN PRN Reason: Shortness of Breath Stop: 08/19/19 06:37 Aspirin (Aspirin Ec) 81 mg PO DAILY [facility] Stop: 08/19/19 09:01 Last Admin: 02/19/19 08:52 Dose: 81 mg Documented by: Bisacodyl (Dulcolax) 5 mg PO DAILY PRN PRN Reason: Constipation Budesonide/Formoterol Fumarate (Symbicort) 2 puff IH BIDR [facility] Stop: 08/19/19 10:01 Last Admin: 02/19/19 07:27 Dose: 2 puff Documented by: Clopidogrel Bisulfate (Plavix) 75 mg PO DAILY [facility] Stop: 08/19/19 09:01 Last Admin: 02/19/19 08:52 Dose: 75 mg Documented by: Ferrous Sulfate (Ferrous Sulfate) 325 mg PO WeFr@0800 [facility] Stop: 08/21/19 08:01 Last Admin: 02/19/19 09:29 Dose: 325 mg Documented by: Furosemide (Lasix) 40 mg PO DAILY [facility] Stop: 08/21/19 10:31 Last Admin: 02/19/19 11:41 Dose: 40 mg Documented by: Heparin Sodium (Porcine) (Heparin) 5,000 unit SQ Q12HCO [facility] Stop: 08/19/19 18:01 Last Admin: 02/19/19 06:14 Dose: 5,000 unit Documented by: Sodium Chloride (0.9 % Sodium Chloride) 1,000 mls @ 0 mls/hr PRIME .Q0M [facility] Stop: 08/19/19 07:46 Sodium Chloride (0.9 % Sodium Chloride) 250 mls @ 937.5 mls/hr IVC .Q16M PRN PRN Reason: Hypotension Stop: 08/20/19 07:23 Levothyroxine Sodium (Synthroid) 75 mcg PO 0630 [facility] Stop: 08/19/19 09:01 Last Admin: 02/19/19 06:14 Dose: 75 mcg Documented by: Lorazepam (Ativan) 0.5 mg PO BID PRN PRN Reason: anxiety Stop: 08/19/19 06:37 Last Admin: 02/18/19 20:36 Dose: 0.5 mg Documented by: Losartan Potassium (Cozaar) 50 mg PO BID [facility] Stop: 08/19/19 09:01 Last Admin: 02/19/19 08:52 Dose: 50 mg Documented by: Metoprolol Succinate (Toprol Xl) 12.5 mg PO DAILY [facility] Stop: 08/19/19 18:02 Last Admin: 02/19/19 08:52 Dose: 12.5 mg Documented by: Naloxone HCl (Narcan) 0.4 mg IVP Q2MPRN PRN PRN Reason: SEE COMMENTS Stop: 08/19/19 06:36 Olanzapine (Zyprexa Zydis) 2.5 mg PO DAILY [facility] Stop: 08/19/19 09:01 Last Admin: 02/19/19 08:53 Dose: 2.5 mg Documented by: Omeprazole (Prilosec) 20 mg PO DAILY@0730 [facility]; Protocol Stop: 08/19/19 09:01 Last Admin: 02/19/19 06:14 Dose: 20 mg Documented by: Ondansetron HCl (Zofran) 4 mg IVP Q8HR PRN PRN Reason: Nausea And Vomiting Stop: 08/19/19 06:36 Last Admin: 02/19/19 10:17 Dose: 4 mg Documented by: Polyethylene Glycol (Miralax) 17 gm PO BID [facility] Stop: 08/19/19 21:01 Last Admin: 02/19/19 08:53 Dose: 17 gm Documented by: Promethazine HCl (Phenergan) 12.5 mg IVP Q6HR PRN PRN Reason: Nausea And Vomiting Stop: 08/21/19 11:25 Last Admin: 02/19/19 11:41 Dose: 12.5 mg Documented by: Laboratory Tests 02/17/19 02/17/19 02/19/19 01:40 01:40 06:39 Creatinine 3.30 H Troponin I < 0.03 B-Natriuretic Peptide 3913 H - Imaging and Cardiology Chest Xray: report reviewed Echo: report reviewed Cardiac cath: report reviewed - EKG Interpretation EKG results cardiology: personally reviewed (ECG with SR, HR 90.), other (Telemetry reviewed with average HR previous 12 hours noted to be 76, SR. PVCs, PACs noted. Short runs of atrial tachycardia noted.) Consult Discharge Plan - Plan Referrals: Patricia Topete CNP [Primary Care Provider] - <Perry Mackenzie A - Last Filed: 02/20/19 14:05> Date of Encounter: 02/20/19 - Attending Attestation I have personally performed a face to face evaluation on this patient. I have reviewed and agree with the documented findings and care plan as documented by the [employer]. History and Exam by me shows: 68-year-old pleasant female with history of CAD, with last C 09/2018 revealing 25% mid LAD, 80% diagonal 1 with ANUPAM placed, 40% prox circ, 100% prox RCA with PROJECT DEVELOPMENT LEADER with left to right collaterals, ESRD on dialysis, admitted for acute respiratory failure secondary to fluid overload AAOX3 in NAD at the bedside Hemodynamically stable Cardiopulmonary exam revealed S1, S2, no murmur; clear lungs Rhythm reviewed - sinus rhythm, no acute ST T changes Echo EF 35%, no significant valvular heart disease Impression/plan: 1. Acute systolic CHF exacerbation. Continue dialysis and diuresis with Lasix. Optimize GDMT with up titration of beta indira and ARB as tolerated 2. CAD / ischemic cardiomyopathy- continue beta indira, aspirin , plavix, and statin. Imdur. 3. Acute respiratory failure- improved 4. ESRD on dialysis Thanks for the consult, please call with questions. Perry Mackenzie MD [facility] Assessment and Plan Discussion w patient/family: The assessment and plan as outlined above was discussed with the patient and/or family members who expressed understanding and agreement. All questions were answered. Thank you for involving us in the care of your patient. Please call with any questions. History of Present Illness History of present illness: Ms. Weeks is a 68 year old female All Systems Review: The remainder of the systems were reviewed and are negative Physical Examination Vital Signs, Last 4 Hours Pulse Resp BP Pulse Ox 02/20/19 13:43 80 18 128/80 96 Results 02/20/19 03:02 02/20/19 03:02 Lab Results 02/19/19 02/20/19 02/20/19 06:39 03:02 03:02 WBC 6.7 Hgb 9.7 L D Hct 31.1 L Plt Count 211 Sodium 134 L 129 L Potassium 3.6 3.5 Chloride 94 L 94 L Carbon Dioxide 28 27 BUN 15 20 Creatinine 3.30 H 4.37 H Glucose 97 91 Calcium 9.0 8.5 L Amylase 33 Lipase 61
[2019-02-19] MEDS ORDERED: Metoclopramide 10 MG/2 ML VIAL IVP ONE (13:30)
[2019-02-19 14:20] LABS: Amylase 33 Units/L (29-103); Lipase 61 Units/L (11-82)
--- NOTE | 2019-02-19 15:35 | Event Note ---
Date of Encounter: 02/19/19 Time of Encounter: 15:00 Chart reviewed, will see pt for full consult tomorrow. Will increase ppi to protonix 40 mg IV bid.
[2019-02-19] MEDS: Pantoprazole 40 MG VIAL IVP SCH (17:50)
[2019-02-19] MEDS ORDERED: Perflutren Lipid Microsphere 1.3 ML in 0.9 % Sodium Chloride 8.7 ML IVP ONE (19:09)
[2019-02-19] MEDS: *HR* LORazepam 0.5 MG TABLET PO PRN (21:06)
[2019-02-20 03:44] LABS: Basophils # 0.1 K/mcL (0.0-0.2); Basophils % 0.9 %; Eosinophils # 0.4 K/mcL (0.0-0.6); Eosinophils % 5.8 %; Hematocrit 31.1 % (35.3-44.9); Immature Granulocytes % 0.3 % (0-4); Lymphocytes # 2.2 K/mcL (0.6-4.6); Lymphocytes % 32.4 %; Mean Corpuscular HGB Conc 31.2 g/dL (31.6-35.5); Mean Corpuscular Hemoglobin 26.1 pg (28.0-33.3); Mean Corpuscular Volume 83.6 fL (83.0-100.0); Mean Platelet Volume 10.3 fL (9.4-12.4); Monocytes # 0.5 K/mcL (0.0-1.3); Monocytes % 7.6 %; Neutrophils # 3.6 K/mcL (1.6-8.9); Platelet Count 211 K/mcL (140-400); Red Blood Count 3.72 M/mcL (3.82-4.97); White Blood Count 6.7 K/mcL (4.3-11.1)
[2019-02-20 03:48] LABS: Hemoglobin 9.7 g/dL (11.5-15.4)
[2019-02-20 03:57] LABS: Calcium 8.5 mg/dL (8.6-10.3); Potassium 3.5 mEq/L (3.5-5.1)
[2019-02-20] MEDS: Pantoprazole 40 MG VIAL IVP SCH ×2 (06:13→17:09)
[2019-02-20] MEDS: *HR* Heparin 5,000 UNIT/ML VIAL SQ SCH ×2 (06:14→17:09)
[2019-02-20] MEDS ORDERED: 0.9 % Sodium Chloride 250 ML IVC PRN (07:22)
[2019-02-20] MEDS: Budesonide/Formoterol 80/4.5 MDI IH SCH ×2 (07:57→20:01)
--- NOTE | 2019-02-20 11:02 | Gastroenterology Consult Note ---
<Maureen Singletonn M - Last Filed: 02/20/19 10:59> Date of Encounter: 02/20/19 Time of Encounter: 09:50 - Time Spent With Patient Total time spent is greater than 50% in coordination of care (as documented) at patient's floor/unit and/or counseling patient: GI History of Present Illness - Data of Consult Patient: new to practice Consult date: 02/20/19 Requesting Physician: Ayush Waggoner MD - Consult Narrative Reason for consult: nausea and vomiting History of present illness: Ms. Weeks is a 68 year old female with a PMHx of asthma, COPD, CVA, dialysis, hyperlipidemia, hypertension, no deficits from previous CVA. lung cancer. In brief history of present illness: Presented with shortness of breath which is an acute on chronic since Sunday evening. Patient has multiple admissions over the past couple weeks with similar complaints. Patient admitted to this facility with volume overload secondary to ESRD. She is also admitted to [facility] approximately 2 weeks prior with similar complaints and was treated for UTI/volume overload. Patient states she has been compliant with her Sunday, , Sunday dialysis. She states she has been watching her salt intake and fluid intake. She was started on hemodialysis approximately 3 months ago and she states nausea began and is worse after each dialysis treatment. Recent workup in October shows ejection fraction of 55% with mild wall motion abnormal ities. She also complained of dysphagia and aspiration pneumonia was considered. GI was consulted for intractable nausea and vomiting. KUB was done yesterday which showed no obstruction. She denies any melena or hematochezia. She reports gerd is controlled on medications. Colonoscopy: Dr. Medina 10/15/15 diverticulosis, 1 small polyp in the distal sigmoid colon, internal hemorrhoids. NSAIDs: Aspirin 81 mg Anticoagulants: Plavix, heparin subcutaneous Impression and Plan: Intractable nausea and vomiting: Pt reports increased nausea and vomiting since being started on hemodialysis 3 months ago. PPI was increased. Will plan for EGD tomorrow to rule out esophagitis, gastritis, duodenitis, peptic ulcer disease, Phuong-Duran tear, AVM. Dysphagia: EGD tomorrow Past Med Surg Social Fam HX - Past Medical History Medical history: asthma, cancer, COPD, coronary artery disease, CVA, dialysis, hyperlipidemia, hypertension, myocardial infarction, other Additional medical history: no deficits from previous CVA. lung cancer - upper left lobectomy Psychiatric history: anxiety - Past Surgical History Surgical History: appendectomy, cholecystectomy Additional surgical history: left upper lobe removed. 3 cardiac stents. dialysis port right upper chest - Social History Smoking Status: Former smoker Smokeless Tobacco Status: No Alcohol use: none Drug use: none Review of Systems: GI: as per [place] [facility]: denies fever, has some chills EYES: denies yellow discoloration ENT: denies pain with swallowing or difficulty swallowing CARDIO: denies chest pain, palpitations RESP: Shortness of breath with exertion : denies change in color of urine NEURO: weakness HEME: Denies any bruising MS: chronic joint pain. DERM: denies rash or itching PSYCH: history of anxiety or depression - Constitutional Vitals: Temp Pulse Resp BP Pulse Ox 97.8 F 75 17 167/93 99 02/20/19 06:54 02/20/19 06:54 02/20/19 07:58 02/20/19 06:54 02/20/19 07:58 Exam: CONSTITUTIONAL:alert, no acute distress.HEAD:normocephalic.EYES:no jaundice.NECK:no obvious swelling.HEART:regular rate and rhythm, no murmurs.LUNGS:bilateral poor air entry.ABDOMEN:non distended, soft, non tender, no masses palpable, no organomegaly.RECTAL EXAM:Deferred.EXTREMITIES:no clubbing, cyanosis or edema.SKIN:no stigmata of chronic liver disease.NEUROLOGIC:no obvious focal defect Results - Labs CBC & Chem 7: 02/20/19 03:02 02/20/19 03:02 Labs: Last Result 02/20/19 03:02 Calcium 8.5 L Entire Visit 02/20/19 03:02 Hgb 9.7 L D Hct 31.1 L - ABG ABG results: PT/INR, D-dimer PT 11.0 Seconds (9.4-12.1) 02/18/19 07:32 - Impressions Impressions Chest X-Ray 02/19/19 05:00 IMPRESSION: 1. Unchanged small bilateral pleural effusions, left greater than right. Unchanged left basilar pulmonary opacity. 2. No convincing radiographic evidence of pneumothorax on current examination. 3. Findings suggestive of underlying COPD. RECOMMENDATION: Radiographic follow-up to complete resolution. D/ / 02/19/2019 07:36:47 Tenzin Montanez MD / caro Interpreting Provider: Tenzin Montanez MD Echocardiogram Limited Views 02/19/19 12:22 Impressions: LVEF 35%. Global and regional LV systolic dysfunction. Definity was used. No LV thrombus. LV chamber size and wall thickness measurements are normal. Normal right ventricular structure and function. When compared to Echo 11/14/2018, LV systolic function is now reduced. Left Ventricular Wall Motion: Rest Echo Findings The apex, apical inferior, mid inferior, apical anterior, mid anterior, basal anterior, apical septal, mid inferior septal, apical lateral, mid anterior lateral, basal anterior lateral, mid anterior septal, mid inferior lateral, basal anterior septal and basal inferior lateral collado were hypokinetic. The basal inferior and basal inferior septal collado were akinetic. Findings: Study Quality * Technically adequate exam. ECG Findings * Normal sinus rhythm. Left Ventricle * LVEF 35%. * LV chamber size and wall thickness measurements are normal. * Definity was used. No LV thrombus. Right Ventricle * Normal right ventricular structure and function. Aorta * Normally sized aortic root. Pericardium * There is no pericardial effusion present. KUB X-Ray 02/19/19 13:30 IMPRESSION: No acute intra-abdominal process. D/ / Iván Acharya MD / Iván Acharya MD Interpreting Provider: Iván Acharya MD Consult Discharge Plan - Plan Referrals: Patricia Topete CNP [Primary Care Provider] - <Lucia Mesa - Last Filed: 02/20/19 17:42> Date of Encounter: 02/20/19 Time of Encounter: 17:25 - Time Spent With Patient Total time spent is greater than 50% in coordination of care (as documented) at patient's floor/unit and/or counseling patient: GI History of Present Illness - Data of Consult Requesting Physician: Ayush Waggoner MD - Consult Narrative History of present illness: Ms. Weeks is a 68 year old female - Constitutional Vitals: Temp Pulse Resp BP Pulse Ox 98.1 F 73 17 149/86 99 02/20/19 15:44 02/20/19 15:44 02/20/19 15:44 02/20/19 15:44 02/20/19 15:44 Results - Labs CBC & Chem 7: 02/20/19 03:02 02/20/19 03:02 - ABG ABG results: PT/INR, D-dimer PT 11.0 Seconds (9.4-12.1) 02/18/19 07:32 - Impressions Impressions Chest X-Ray 02/19/19 05:00 IMPRESSION: 1. Unchanged small bilateral pleural effusions, left greater than right. Unchanged left basilar pulmonary opacity. 2. No convincing radiographic evidence of pneumothorax on current examination. 3. Findings suggestive of underlying COPD. RECOMMENDATION: Radiographic follow-up to complete resolution. D/ / 02/19/2019 07:36:47 Tenzin Montanez MD / caro Interpreting Provider: Tenzin Montanez MD Echocardiogram Limited Views 02/19/19 12:22 Impressions: LVEF 35%. Global and regional LV systolic dysfunction. Definity was used. No LV thrombus. LV chamber size and wall thickness measurements are normal. Normal right ventricular structure and function. When compared to Echo 11/14/2018, LV systolic function is now reduced. Left Ventricular Wall Motion: Rest Echo Findings The apex, apical inferior, mid inferior, apical anterior, mid anterior, basal anterior, apical septal, mid inferior septal, apical lateral, mid anterior lateral, basal anterior lateral, mid anterior septal, mid inferior lateral, basal anterior septal and basal inferior lateral collado were hypokinetic. The basal inferior and basal inferior septal collado were akinetic. Findings: Study Quality * Technically adequate exam. ECG Findings * Normal sinus rhythm. Left Ventricle * LVEF 35%. * LV chamber size and wall thickness measurements are normal. * Definity was used. No LV thrombus. Right Ventricle * Normal right ventricular structure and function. Aorta * Normally sized aortic root. Pericardium * There is no pericardial effusion present. - Attending Attestation I have personally performed a face to face evaluation on this patient. I have reviewed and agree with the care plan. History and Exam by me shows: Patient seen. Complaining of occ trouble with swallowing and epigastric pain. Examination alert and awake. Mild epigastric tenderness assessment: Patient with multiple medical problem now with nausea and vomiting. Recommendation EGD to rule out GI causes for symptoms
--- NOTE | 2019-02-20 11:02 | Internal Med Progress Note ---
Hospitalist Progress Note - Encounter Date of Encounter: 02/20/19 Time of Encounter: 10:59 - Subjective Interval History: Patient seen during dialysis today. Doing a little better today. Feels hungry. Has not had further episodes of nausea and vomiting since yesterday afternoon. Denies any chest pain or palpitations. No fevers or chills reported overnight. Denies any significant shortness of breath at this time. - Exam Vitals: Temp Pulse Resp BP Pulse Ox 97.8 F 75 17 167/93 99 02/20/19 06:54 02/20/19 06:54 02/20/19 07:58 02/20/19 06:54 02/20/19 07:58 Exam: General: Patient is alert, mild distress, oriented x 3 Respiratory: Good respiratory effort. Prolonged expiratory phase with mild wheezing. Cardiovascular: Regular rate and rhythm. s1 and s2 normal No clicks, rubs, gallops, or murmurs. No pedal edema Abdomen: Abdomen is soft, nontender. Bowel sounds are present Musculoskeletal: Spontaneously moving all extremities Skin: warm, dry, intact. Neuro: Alert oriented x 3 normal cranial nerves, no focal deficits - Assessment and Plan (1) Acute and chronic respiratory failure with hypoxia Current Visit: Yes Status: Acute (2) Congestive heart failure (CHF) Current Visit: Yes Status: Acute (3) Pleural effusion Current Visit: Yes Status: Acute (4) Volume overload Current Visit: Yes Status: Acute (5) ESRD (end stage renal disease) on dialysis Current Visit: Yes Status: Acute (6) Weight loss, non-intentional Current Visit: Yes Status: Acute (7) CAD (coronary artery disease) Current Visit: Yes Status: Chronic DVT Prophylaxis: On subcutaneous heparin - Summary of Assessment and Plan Summary of Assessment and Plan: Acute on chronic respiratory failure with hypoxia: Continue O2 supplementation. Patient on 2 L nasal cannula. Stable. Bilateral pleural effusion: Status post thoracentesis 2 days back. Doing well. End-stage renal disease on hemodialysis: Patient being dialyzed today. Nephrology following for dialysis needs. Intractable nausea and vomiting: Nausea improved after patient received Reglan yesterday evening. Consulted GI to evaluate and see if patient would benefit from an EGD to rule out any strictures or gastritis or ulcers. GI consult in progress. Possible EGD tomorrow. Goals of care: Patient to remain full code for now. Acute on chronic systolic and diastolic congestive heart failure: Cardiology recommends repeat limited echocardiogram with Definity. Will await results. Continue volume management with dialysis. Weight loss: Most likely due to poor nutrition. We will need to rule out other causes for dysphagia. GI has been consulted. We will follow recommendations. Coronary artery disease: Continue aspirin, Plavix and statin. Patient did have 1 vessel PCI in September 2018. Cardiology consulted. Patient does not have any chest pain. Moderate risk for complications. - Time Spent with Patient Total time spent is greater than 50% in coordination of care (as documented) at patient's floor/unit and/or counseling patient: Internal Medicine: Result - Labs CBC & Chem 7: 02/20/19 03:02 02/20/19 03:02 Labs: Short CBC 02/20/19 Range/Units 03:02 WBC 6.7 (4.3-11.1) K/mcL Hgb 9.7 L D (11.5-15.4) g/dL Hct 31.1 L (35.3-44.9) % Plt Count 211 (140-400) K/mcL Neutrophils # 3.6 (1.6-8.9) K/mcL BMP 02/19/19 02/20/19 06:39 03:02 Sodium 134 L 129 L Potassium 3.6 3.5 Chloride 94 L 94 L Carbon Dioxide 28 27 BUN 15 20 Creatinine 3.30 H 4.37 H Glucose 97 91 Calcium 9.0 8.5 L - ABG Interpretation ABG results: PT/INR, D-dimer PT 11.0 Seconds (9.4-12.1) 02/18/19 07:32 - Impressions Impressions Chest X-Ray 02/19/19 05:00 IMPRESSION: 1. Unchanged small bilateral pleural effusions, left greater than right. Unchanged left basilar pulmonary opacity. 2. No convincing radiographic evidence of pneumothorax on current examination. 3. Findings suggestive of underlying COPD. RECOMMENDATION: Radiographic follow-up to complete resolution. D/ / 02/19/2019 07:36:47 Tenzin Montanez MD / caro Interpreting Provider: Tenzin Montanez MD Echocardiogram Limited Views 02/19/19 12:22 Impressions: LVEF 35%. Global and regional LV systolic dysfunction. Definity was used. No LV thrombus. LV chamber size and wall thickness measurements are normal. Normal right ventricular structure and function. When compared to Echo 11/14/2018, LV systolic function is now reduced. Left Ventricular Wall Motion: Rest Echo Findings The apex, apical inferior, mid inferior, apical anterior, mid anterior, basal anterior, apical septal, mid inferior septal, apical lateral, mid anterior lateral, basal anterior lateral, mid anterior septal, mid inferior lateral, basal anterior septal and basal inferior lateral collado were hypokinetic. The basal inferior and basal inferior septal collado were akinetic. Findings: Study Quality * Technically adequate exam. ECG Findings * Normal sinus rhythm. Left Ventricle * LVEF 35%. * LV chamber size and wall thickness measurements are normal. * Definity was used. No LV thrombus. Right Ventricle * Normal right ventricular structure and function. Aorta * Normally sized aortic root. Pericardium * There is no pericardial effusion present. KUB X-Ray 02/19/19 13:30 IMPRESSION: No acute intra-abdominal process. D/ / Iván Acharya MD / Iván Acharya MD Interpreting Provider: Iván Acharya MD Consult Discharge Plan - Plan Referrals: Patricia Topete CNP [Primary Care Provider] - (2) Congestive heart failure (CHF) Qualifiers: Heart failure type: diastolic Heart failure chronicity: acute Qualified Code(s): I50.31 - Acute diastolic (congestive) heart failure (4) Volume overload Qualifiers: Hypervolemia type: unspecified Qualified Code(s): E87.70 - Fluid overload, unspecified (7) CAD (coronary artery disease) Qualifiers: Coronary Disease-Associated Artery/Lesion type: [place] artery [place] vs. transplanted heart: [place] heart Associated angina: without angina Qualified Code(s): I25.10 - Atherosclerotic heart disease of [place] coronary artery witho ut angina pectoris
--- NOTE | 2019-02-20 12:22 | Nephrology Progress Note ---
Date of Encounter: 02/20/19 Time of Encounter: 12:20 - Assessment and Plan (1) ESRD (end stage renal disease) on dialysis Current Visit: Yes Status: Acute Current regimen is TTS at [facility]. HD aborted 30 minutes before due to Hypotension (66/39). Pt recovered with NS and returning blood. Renal diet Renal vitamins Strict I/O Avoid nephrotoxins and renal dose all medications. 40 mg Lasix added daily to help with fluid overload. (2) Acute and chronic respiratory failure Current Visit: Yes Status: Acute Continue supplemental oxygen, per primary. Qualifiers: Respiratory failure complication: hypoxia Qualified Code(s): J96.21 - Acute and chronic respiratory failure with hypoxia (3) Volume overload Current Visit: Yes Status: Acute Will offer additional UF and HD as needed . . Qualifiers: Hypervolemia type: unspecified Qualified Code(s): E87.70 - Fluid overload, unspecified (4) Anemia Current Visit: Yes Status: Chronic Goal Hgb is 10-11. No new CBC for today. Qualifiers: Anemia type: iron deficiency Iron deficiency anemia type: unspecified iron deficiency Qualified Code(s): D50.9 - Iron deficiency anemia, unspecified (5) Nausea Current Visit: No Status: Acute Per GI possible EGD for tomorrow. Subjective Principal diagnosis: difficulty in breathing Interval history: Seen and examined during HD. Approximately 3 hours into treatment patient became hypotensive and somewhat altered. Denies nausea, vomiting, diarrhea. Denies chest pain or shortness of breath. Objective - Vital Signs Vital signs: Vital Signs Temp Pulse Resp BP Pulse Ox 02/20/19 07:58 17 99 02/20/19 06:54 97.8 F 75 18 167/93 99 02/20/19 04:48 98 F 67 20 160/82 100 02/19/19 23:57 98.3 F 71 20 162/89 100 02/19/19 22:00 18 99 02/19/19 21:14 100 02/19/19 20:00 98 F 71 20 143/71 100 02/19/19 16:18 99.2 F 71 18 142/84 99 Intake and Output 02/19/19 02/20/19 02/20/19 23:59 07:59 15:59 Output Total 0 / 0 Balance 0 / 0 Output: Urine 0 / 0 Other: # Voids 1 Blood Glucose* 112 100 105 - General Appearance General appearance: Present: severe distress, frail EENT: Present: ATNC, hearing intact, vision intact Neck: Present: supple Respiratory: Present: clear Cardiology: Present: no edema, normal S1, normal S2 Dialysis Vascular Access: Venous Catheter (DRSG C/D/I) Gastrointestinal: Present: normoactive bowel sounds, no tenderness, no guarding Integumentary: Present: no rash, warm and dry Neurologic: Present: alert and oriented x3 Musculoskeletal: Present: no deformities, no erythema Psychiatric: Present: mood/affect appropriate, cooperative - Lab 02/20/19 03:02 02/20/19 03:02 Most recent lab results 02/20/19 03:02 Calcium 8.5 L Consult Discharge Plan - Plan Referrals: Patricia Topete MILKING MACHINE OPERATOR [Primary Care Provider] -
[2019-02-20] MEDS: OLANZapine 5 MG TAB.RAPDIS PO SCH (13:44)
[2019-02-20] MEDS: Metoprolol XL (24 HR) Succ 25 MG TAB.ER.24H PO SCH (13:45)
[2019-02-20] MEDS: Furosemide 40 MG TABLET PO SCH (13:45)
[2019-02-20] MEDS: Aspirin Enteric Coated 81 MG Tablet PO SCH (13:46)
[2019-02-20] MEDS: *HR* LORazepam 0.5 MG TABLET PO PRN ×2 (13:49→20:26)
[2019-02-20] MEDS: Ondansetron 4 MG/2 ML VIAL IVP PRN (15:30)
--- NOTE | 2019-02-20 17:46 | Anesthesia Evaluation PreOp ---
Date of Encounter: 02/20/19 Time of Encounter: 17:44 - Past History Planned Operation: EGD Cardiac History: CHF (Impressions: LVEF 35%. Global and regional LV systolic dysfunction. Definity was used. No LV thrombus. LV chamber size and wall thickness measurements are normal. Normal right ventricular structure and function. 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: CVA Other Medical History: Renal (ESRD on HD, dialysis aborted today due to hypotension), Thyroid (hypo), Other (anemia) Anesthesia History: No Prior Anesthetic Complications, Past Anesthesia (laura, appy, tonsills, colonoscopy) Alcohol Use: none Drug use: none Medications and Allergies Atenolol [Tenormin] 50 mg PO DAILY 10/21/18 [History] Clopidogrel [Plavix] 75 mg PO DAILY 10/21/18 [History] Fluticasone/Salmeterol [Advair 250-50 Diskus] 1 puff IH BID 10/21/18 [History] Levothyroxine [Synthroid] 75 mcg PO QAM 10/21/18 [History] Losartan Potassium [Cozaar] 50 mg PO BID 10/21/18 [History] Omeprazole [PriLOSEC] 20 mg PO DAILY 10/21/18 [History] amLODIPine [Norvasc] 5 mg PO DAILY 10/21/18 [History] Albuterol Sulfate [Ventolin Hfa] 2 puff IH Q4H PRN 11/14/18 [History] Aspirin [Adult Aspirin Regimen] 81 mg PO DAILY 11/14/18 [History] Ipratropium/Albuterol Sulfate [Iprat-Albut 0.5-3(2.5) mg/3 ml] 3 ml IH Q6H PRN 11/14/18 [History] Ferrous Sulfate [Iron] 325 mg PO DAILY 01/17/19 [History] Isosorbide MONOnitrate (24 HR) [Imdur] 30 mg PO DAILY 01/17/19 [History] LORazepam [Ativan] 1 mg PO 1200 02/04/19 [History] Midodrine [ProAmatine] 5 mg PO TUTHSA 02/04/19 [History] OLANZapine [Zyprexa] 2.5 mg PO HS 02/04/19 [History] LORazepam [Ativan] 0.5 mg PO BID #0 02/05/19 [Rx] Ondansetron HCl [Zofran] 4 mg PO Q6H PRN 02/18/19 [History] Allergy/AdvReac Type Severity Reaction Status Date / Time atorvastatin Allergy See Verified 02/17/19 03:57 Comments doxycycline Allergy Rash Verified 02/17/19 03:57 Sulfa (Sulfonamide Allergy Rash Verified 02/17/19 03:57 Antibiotics) codeine AdvReac Nausea Verified 02/17/19 03:57 hydrocodone [From Vicodin] AdvReac Irritable Verified 02/17/19 03:57 - Meds/Allergy Pre-op Review Medications Reviewed: Yes Allergies Reviewed: Yes Beta Blockers on Current Med List: No Anesthesia Results - Labs 02/20/19 03:02 02/20/19 03:02 - Imaging Additional studies: LEFT HEART CATH Stent w/ PTCA Single Major Vessel Indications: Worsening Angina Impressions: There is severe one vessel coronary artery disease. Patient had successful PTCA/Drug-Eluting Stent placement in the Diagonal. Recommendations: Optimal medical therapy of patient's disease. Aggressive risk factor modification. Anesthesia Exam Vital Signs/O2 Sat, Most Current Temp Pulse Resp BP Pulse Ox 98.1 F 73 17 149/86 99 02/20/19 15:44 02/20/19 15:44 02/20/19 15:44 02/20/19 15:44 02/20/19 15:44 Weight: 50kg NPO (# of Hours): MN - HEENT Pupil (Motor): Pupils equal, EOMI Mallampati: II - RETAIL TRAINING MANAGER LOC: Oriented - Cardiac Rhythm: Regular - Pulmonary Respiratory Effort: Symmetrical Anesthesia Assess/Plan ASA Score: 4 Level of consciousness: Cooperative Anesthetic Plan: MAC Monitoring Plan: Standard Monitors Recovery Plan: PACU
[2019-02-21 03:43] LABS: Basophils # 0.1 K/mcL (0.0-0.2); Basophils % 1.2 %; Eosinophils # 0.3 K/mcL (0.0-0.6); Eosinophils % 4.4 %; Hematocrit 31.9 % (35.3-44.9); Immature Granulocytes % 1.2 % (0-4); Immature Platelets 4.6 % (1.1-6.1); Lymphocytes # 1.6 K/mcL (0.6-4.6); Lymphocytes % 24.5 %; Mean Corpuscular HGB Conc 31.3 g/dL (31.6-35.5); Mean Corpuscular Hemoglobin 25.9 pg (28.0-33.3); Mean Corpuscular Volume 82.6 fL (83.0-100.0); Mean Platelet Volume 10.9 fL (9.4-12.4); Monocytes # 0.5 K/mcL (0.0-1.3); Monocytes % 8.2 %; Platelet Count 189 K/mcL (140-400); Red Blood Count 3.86 M/mcL (3.82-4.97); Red Cell Distribution Width 17.2 % (11.5-14.5); Segmented Neutrophils % 60.5 %; White Blood Count 6.6 K/mcL (4.3-11.1)
[2019-02-21 03:57] LABS: Calcium 8.8 mg/dL (8.6-10.3); Potassium 3.8 mEq/L (3.5-5.1)
[2019-02-21] MEDS: *HR* Heparin 5,000 UNIT/ML VIAL SQ SCH (05:43)
[2019-02-21] MEDS: Pantoprazole 40 MG VIAL IVP SCH (05:43)
[2019-02-21] MEDS ORDERED: *HR* Propofol 200 MG/20 ML VIAL IVP ONE (06:05)
[2019-02-21] MEDS ORDERED: Lidocaine -MPF 2% 2 ML VIAL ONE (06:13)
[2019-02-21] MEDS ORDERED: *HR* Midazolam HCl 5 MG/5 ML VIAL IVP ONE (07:12)
[2019-02-21] MEDS: Budesonide/Formoterol 80/4.5 MDI IH SCH (07:12)
[2019-02-21] MEDS ORDERED: *HR* FentaNYL (PF) 100 MCG/2 ML VIAL ONE (07:12)
[2019-02-21] MEDS: Furosemide 40 MG TABLET PO SCH (08:45)
[2019-02-21] MEDS: Ondansetron 4 MG/2 ML VIAL IVP PRN (08:45)
[2019-02-21] MEDS: Metoprolol XL (24 HR) Succ 25 MG TAB.ER.24H PO SCH (08:45)
[2019-02-21] MEDS: Aspirin Enteric Coated 81 MG Tablet PO SCH (08:45)
[2019-02-21] MEDS: OLANZapine 5 MG TAB.RAPDIS PO SCH (08:45)
[2019-02-21] MEDS: *HR* LORazepam 0.5 MG TABLET PO PRN (08:45)
[2019-02-21] MEDS ORDERED: *HR* Alteplase (Cathflo) 2 MG VIAL IVP ONE ×2 (09:58→10:00)
[2019-02-21] MEDS ORDERED: amLODIPine 5 MG TABLET PO SCH (11:28)
[2019-02-21] MEDS ORDERED: Sucralfate 1 GM TABLET PO SCH (11:30)
--- NOTE | 2019-02-21 12:24 | Discharge Summary ---
- NOTES TO OUTPATIENT PROVIDER Notes to Outpatient Provider: Patient with a history of COPD, CVA, end-stage renal disease on hemodialysis, lung, hypertension and hyperlipidemia was hospitalized here with acute on chronic respiratory failure related to volume overload. Patient was given Lasix in the ER nephrology was consulted. Possible reticular infiltrates but she had recently been treated for pneumonia at [facility] and these were believed to be related to that. Patient also had pleural effusions bilaterally and underwent thoracentesis on the left side with removal of about 550 mL pleural fluid which appears to be transudate with. Patient has also been having episodes of nausea and vomiting and so gastroentero logy was consulted. Patient underwent upper GI endoscopy and was found to have reflux esophagitis and gastritis. Recommended PPI, Carafate. She will follow up with GI for further management. Patient is now doing better overall and is clinically stable to be discharged. She is tolerating oral diet well. Orders not resulted at time of discharge: Pending orders 02/18/19 17:00 Culture,Anaerobic [RM] Routine 02/18/19 17:19 Cytology [PTH] Routine 02/21/19 07:52 Surgical Pathology [PTH] Routine 02/22/19 04:00 BMP [Basic Metabolic Panel] AM 0400 Date of Encounter: 02/21/19 Time of Encounter: 12:24 - Discharge Diagnosis (1) Acute and chronic respiratory failure with hypoxia Priority: Primary Status: Acute (2) Congestive heart failure (CHF) Priority: Secondary Status: Acute Qualifiers: Heart failure type: diastolic Heart failure chronicity: acute Qualified Code(s): I50.31 - Acute diastolic (congestive) heart failure (3) Pleural effusion Priority: Secondary Status: Acute (4) Volume overload Priority: Secondary Status: Acute Qualifiers: Hypervolemia type: unspecified Qualified Code(s): E87.70 - Fluid overload, unspecified (5) ESRD (end stage renal disease) on dialysis Priority: Secondary Status: Acute (6) Weight loss, non-intentional Priority: Secondary Status: Acute (7) CAD (coronary artery disease) Priority: Secondary Status: Chronic Qualifiers: Coronary Disease-Associated Artery/Lesion type: eagle artery [place] vs. transplanted heart: eagle heart Associated angina: without angina Qualified Code(s): I25.10 - Atherosclerotic heart disease of eagle coronary artery without angina pectoris (8) Reflux esophagitis Priority: Secondary Status: Acute (9) Gastritis Priority: Secondary Status: Acute Qualifiers: Gastritis type: unspecified gastritis Chronicity: acute Gastritis bleeding: without bleeding Qualified Code(s): K29.00 - Acute gastritis without bleeding (10) Acute on chronic respiratory failure with hypoxia Priority: Secondary Status: Resolved Hospital course: Ms. Weeks is a 68 year old female Patient with a history of COPD, CVA, end- stage renal disease on hemodialysis, lung, hypertension and hyperlipidemia was hospitalized here with acute on chronic respiratory failure related to volume overload. Patient was given Lasix in the ER nephrology was consulted. Possible reticular infiltrates but she had recently been treated for pneumonia at [facility] and these were believed to be related to that. Patient also had pleural effusions bilaterally and underwent thoracentesis on the left side with removal of about 550 mL pleural fluid which appears to be transudate with. Patient has also been having episodes of nausea and vomiting and so gastroenterology was consulted. Patient underwent upper GI endoscopy and was found to have reflux esophagitis and gastritis. Recommended PPI, Carafate. She will follow up with GI for further management. Patient is now doing better overall and is clinically stable to be discharged. She is tolerating oral diet well. Patient was found to have decreased ejection fraction per echocardiogram done here. Her EF was 35%. Cardiology was consulted and they recommended continued medical management and outpatient follow-up. This will be arranged at discharge. Discharge discussed with: patient, family, nurse - Time Spent with Patient Total time spent providing and/or coordinating discharge services: Time spent: Greater than 30 minutes (38 min) - Discharge Medications Prescriptions: New Sucralfate [Carafate] 1 gm PO QIDAC #120 tablet Pantoprazole Sodium [Protonix] 40 mg PO BID #60 tablet.dr Continued Atenolol [Tenormin] 50 mg PO DAILY amLODIPine [Norvasc] 5 mg PO DAILY Levothyroxine [Synthroid] 75 mcg PO QAM Fluticasone/Salmeterol [Advair 250-50 Diskus] 1 puff IH BID Clopidogrel [Plavix] 75 mg PO DAILY Losartan Potassium [Cozaar] 50 mg PO BID Albuterol Sulfate [Ventolin Hfa] 2 puff IH Q4H PRN PRN Reason: Shortness Of Breath Aspirin [Adult Aspirin Regimen] 81 mg PO DAILY Ipratropium/Albuterol Sulfate [Iprat-Albut 0.5-3(2.5) mg/3 ml] 3 ml IH Q6H PRN PRN Reason: Shortness Of Breath Isosorbide MONOnitrate (24 HR) [Imdur] 30 mg PO DAILY Ferrous Sulfate [Iron] 325 mg PO DAILY LORazepam [Ativan] 1 mg PO 1200 OLANZapine [Zyprexa] 2.5 mg PO HS LORazepam [Ativan] 0.5 mg PO BID #0 Ondansetron HCl [Zofran] 4 mg PO Q6H PRN PRN Reason: Nausea Discontinued Omeprazole [PriLOSEC] 20 mg PO DAILY Midodrine [ProAmatine] 5 [facility] Medications: Atenolol [Tenormin] 50 mg PO DAILY 10/21/18 [History] Clopidogrel [Plavix] 75 mg PO DAILY 10/21/18 [History] Fluticasone/Salmeterol [Advair 250-50 Diskus] 1 puff IH BID 10/21/18 [History] Levothyroxine [Synthroid] 75 mcg PO QAM 10/21/18 [History] Losartan Potassium [Cozaar] 50 mg PO BID 10/21/18 [History] amLODIPine [Norvasc] 5 mg PO DAILY 10/21/18 [History] Albuterol Sulfate [Ventolin Hfa] 2 puff IH Q4H PRN 11/14/18 [History] Aspirin [Adult Aspirin Regimen] 81 mg PO DAILY 11/14/18 [History] Ipratropium/Albuterol Sulfate [Iprat-Albut 0.5-3(2.5) mg/3 ml] 3 ml IH Q6H PRN 11/14/18 [History] Ferrous Sulfate [Iron] 325 mg PO DAILY 01/17/19 [History] Isosorbide MONOnitrate (24 HR) [Imdur] 30 mg PO DAILY 01/17/19 [History] LORazepam [Ativan] 1 mg PO 1200 02/04/19 [History] OLANZapine [Zyprexa] 2.5 mg PO HS 02/04/19 [History] LORazepam [Ativan] 0.5 mg PO BID #0 02/05/19 [Rx] Ondansetron HCl [Zofran] 4 mg PO Q6H PRN 02/18/19 [History] Pantoprazole Sodium [Protonix] 40 mg PO BID #60 tablet. 02/21/19 [Rx] Sucralfate [Carafate] 1 gm PO QIDAC #120 tablet 02/21/19 [Rx] Allergies/Adverse Reactions: Allergy/AdvReac Type Severity Reaction Status Date / Time atorvastatin Allergy See Verified 02/17/19 03:57 Comments doxycycline Allergy Rash Verified 02/17/19 03:57 Sulfa (Sulfonamide Allergy Rash Verified 02/17/19 03:57 Antibiotics) codeine AdvReac Nausea Verified 02/17/19 03:57 hydrocodone [From Vicodin] AdvReac Irritable Verified 02/17/19 03:57 Date of admission: 02/18/19 19:50 Primary care physician: Patricia Topete CNP Consults: 02/17/19 04:26 Consult to Nephrology [CONS] Stat Consulting Provider: Kidney Merna/GUNJAN/MELISSA/LUISA Reason for Consult: Fluid Overload, Dialysis patient Call Completed: No 02/17/19 06:10 Consult to Nutrition [CONS] Routine Comment: Consulting Provider: NUTRITION Reason for Dietary Consult: MST Score Consult to Butadiene Converter Helper [CONS] Routine Reason for SW Consult: concern about advanced directives, living [place], power of real estate associate attorney 02/17/19 06:29 Consult to Speech Therapy [CONS] Routine Comment: Evaluate, develop and implement POC Reason for Consult: swallow evaluation Call Completed: No 02/17/19 07:45 Consult to Dialysis [CONS] ONCE 02/17/19 10:47 Consult to Nurse Navigator [CONS] Routine Comment: hd 02/18/19 07:30 Consult to Dialysis [CONS] ONCE 02/18/19 18:43 consult to graphic designer [Consult to Nutrition] [CONS] Routine Comment: recent weight loss on HD Consulting Provider: NUTRITION Reason for Dietary Consult: PO Supplementation 02/19/19 12:08 Consult to Cardiology [CONS] Routine Comment: Consulting Provider: Cardiology Merna Reason for Consult: CHF/ Reduced EF compared to previous with segmental and global LV dysfunction; Stent in 10/15 Call Completed: Yes 02/19/19 14:04 Consult to Gastroenterology [CONS] Routine Consulting Provider: Gastroenterology Merna Reason for Consult: INtractable N/V Time Notified: 14:04 Call Completed: Yes 02/20/19 07:30 Consult to Dialysis [CONS] ONCE Discharging clinician: Ayush Waggoner Anticipated date of discharge: 02/21/19 - Constitutional Vitals: Temp Pulse Resp BP Pulse Ox 99.0 F 78 18 174/89 100 02/21/19 11:21 02/21/19 11:21 02/21/19 11:21 02/21/19 11:21 02/21/19 11:21 Exam: General: Patient is alert, no acute distress, oriented x 3 Respiratory: Prolonged expiratory phase, coarse breath sounds Cardiovascular: Regular rate and rhythm. s1 and s2 normal No clicks, rubs, gallops, or murmurs. No pedal edema Abdomen: Abdomen is soft, nontender. Bowel sounds are present Musculoskeletal: Spontaneously moving all extremities Skin: warm, dry, intact. Neuro: Alert oriented x 3 normal cranial nerves, no focal deficits - Patient Status Disposition: Home, Self-Care Condition: Good Functional capacity at discharge: uses cane/walker Overall status at discharge: patient is progressing back to baseline - Discharge Instructions Instructions: Heart Failure (DC), Acute Respiratory Distress Syndrome (DC) Follow Up With: Patricia Topete CNP [Primary Care Provider] - (In 1 week) Lucia Mesa MD [Partnered Physician] - (Follow-up in 1-2 weeks regarding biopsy results.) Ada Oswald [Partnered Physician] - (in 1-2 weeks) - Diet and Activity Activity: increase activity as tolerated, wear oxygen at all times Diet: advance to your usual diet, low fat, low cholesterol, low salt diet, other (Fluid restriction to 1.5 L per day)
[2019-02-21 14:42] VITALS: BP 135/73
== END 2019-02-21 16:16 | disposition home or self-care (01) | DRG 291 ==
LOC: EMEROOARM 01:17 → 2ANU 01:17 → SUATTDRO 04:39 → 2ANU 05:06 → SUATTDRO 02-18 19:50
PROVIDERS: ADMIT Internal Medicine Nephrology; ATTEND Internal Medicine
PROC: ENDOEBX (2019-02-21 08:00)

== ENCOUNTER 2019-03-03 22:22 | Inpatient (IN) ==
[2019-03-03] MEDS ORDERED: methylPREDNISolone 125 MG/2 ML VIAL IVP ONE (22:43)
[2019-03-03] MEDS ORDERED: Ipratropium/Albuterol Neb 3 ML IH ONE (22:43)
[2019-03-03] MEDS ORDERED: Isovue-370 500 ML BOTTLE IVP ONE (22:47)
[2019-03-03 23:05] LABS: Basophils # 0.1 K/mcL (0.0-0.2); Basophils % 0.8 %; Eosinophils # 0.7 K/mcL (0.0-0.6); Eosinophils % 6.3 %; Hematocrit 36.8 % (35.3-44.9); Hemoglobin 11.1 g/dL (11.5-15.4); Immature Granulocytes % 0.6 % (0-4); Lymphocytes # 5.6 K/mcL (0.6-4.6); Lymphocytes % 48.1 %; Mean Corpuscular HGB Conc 30.2 g/dL (31.6-35.5); Mean Corpuscular Hemoglobin 25.7 pg (28.0-33.3); Mean Corpuscular Volume 85.2 fL (83.0-100.0); Monocytes # 0.7 K/mcL (0.0-1.3); Monocytes % 5.7 %; Neutrophils # 4.5 K/mcL (1.6-8.9); Platelet Count 319 K/mcL (140-400); Red Blood Count 4.32 M/mcL (3.82-4.97); Red Cell Distribution Width 18.3 % (11.5-14.5); Segmented Neutrophils % 38.5 %; White Blood Count 11.6 K/mcL (4.3-11.1)
[2019-03-03 23:13] LABS: INR 0.9; Prothrombin Time 10.1 Seconds (9.4-12.1)
[2019-03-03 23:15] LABS: Activated Partial Thrombo Time 31.2 Seconds (26.0-36.0)
[2019-03-03 23:27] LABS: Alanine Aminotransferase 5 Units/L (7-52); Albumin 3.7 g/dL (3.5-5.7); Albumin/Globulin Ratio 1.5 (1.1-2.2); Alkaline Phosphatase 87 Units/L (34-104); Aspartate Amino Transferase 11 Units/L (13-39); BUN/Creatinine Ratio 4 (6-26); Bilirubin,Direct 0.1 mg/dL (0.0-0.2); Bilirubin,Indirect 0.3 mg/dL (0.0-1.2); Bilirubin,Total 0.4 mg/dL (0.3-1.0); Blood Urea Nitrogen 21 mg/dL (8-23); Carbon Dioxide 22 mEq/L (23-29); Chloride 100 mEq/L (98-107); Globulin 2.5 g/dL (2.4-3.5); Glucose 162 mg/dL (70-105); Osmolality,Calculated 279 (280-300); Potassium 5.7 mEq/L (3.5-5.1); Sodium 131 mEq/L (136-145); Total Protein 6.2 g/dL (6.4-8.9); Troponin I < 0.03 ng/mL (< 0.04); eGFR For African Americans 11 (> 60); eGFR For Non-African Americans 9 (> 60)
--- NOTE | 2019-03-04 00:01 | Emergency Department Note ---
Disposition Clinical Impression: COPD exacerbation, SOB (shortness of breath) Community acquired pneumonia Qualifiers: Laterality: unspecified laterality Qualified Code(s): J18.9 - Pneumonia, unspecified organism Congestive heart failure (CHF) Qualifiers: Heart failure type: unspecified Heart failure chronicity: acute on chronic Qualified Code(s): I50.9 - Heart failure, unspecified Asthma with exacerbation Qualifiers: Asthma severity: moderate Asthma persistence: persistent Qualified Code(s): J45.41 - Moderate persistent asthma with (acute) exacerbation COPD (chronic obstructive pulmonary disease) Qualifiers: COPD type: unspecified COPD Qualified Code(s): J44.9 - Chronic obstructive pulmonary disease, unspecified Volume overload Qualifiers: Hypervolemia type: unspecified Qualified Code(s): E87.70 - Fluid overload, unspecified Disposition: Admitted As Inpatient Condition: Fair Time of Disposition: 01:38 SOB HPI - General Chief Complaint: ED Shortness of Breath/Dyspnea Stated Complaint: LEXA Time Seen by Provider: 03/03/19 22:24 Source: patient, family, EMS Mode of arrival: EMS Limitations: no limitations Nursing Notes Reviewed: Yes Vital Signs Reviewed: Yes - History of Present Illness 68F with Pmhx of COPD, ESRD on dialysis (, , sat) that reports acute worsening of shortness of breath this evening after she laid down to take a nap. She reports not missing any dialysis appointments. She has three stents placed over five years ago. Takes plavix. Denies Afib/Aflutter. Chronically on 2L O2 all the time, but has been on 3-1/2L at home recently to support SOB. Denies Fevers/chills/Cp. - Related Data Home Medications Medication Instructions Recorded Confirmed Atenolol [Tenormin] 50 mg PO DAILY 10/21/18 03/04/19 Clopidogrel [Plavix] 75 mg PO DAILY 10/21/18 03/04/19 Fluticasone/Salmeterol [Advair 1 puff IH BID 10/21/18 03/04/19 250-50 Diskus] Levothyroxine [Synthroid] 75 mcg PO QAM 10/21/18 03/04/19 Losartan Potassium [Cozaar] 50 mg PO BID 10/21/18 03/04/19 amLODIPine [Norvasc] 2.5 mg PO DAILY 10/21/18 03/04/19 Albuterol Sulfate [Ventolin Hfa] 2 puff IH Q4H PRN 11/14/18 03/04/19 Aspirin [Adult Aspirin Regimen] 81 mg PO DAILY 11/14/18 03/04/19 Ipratropium/Albuterol Sulfate 3 ml IH Q6H PRN 11/14/18 03/04/19 [Iprat-Albut 0.5-3(2.5) mg/3 ml] Ferrous Sulfate [Iron] 325 mg PO DAILY 01/17/19 03/04/19 Isosorbide MONOnitrate (24 HR) 30 mg PO DAILY 01/17/19 03/04/19 [Imdur] OLANZapine [Zyprexa] 2.5 mg PO HS 02/04/19 03/04/19 Ondansetron HCl [Zofran] 4 mg PO Q6H PRN 02/18/19 03/04/19 LORazepam [Ativan] 0.5 mg PO TID 03/04/19 03/04/19 Previous Rx's Medication Instructions Recorded Pantoprazole Sodium [Protonix] 40 mg PO BID #60 tablet. 02/21/19 Sucralfate [Carafate] 1 gm PO QIDAC #120 tablet 02/21/19 Lactose-Reduced Food [Ensure 1 bottle PO TID #90 can 02/22/19 [facility]] Allergies Allergy/AdvReac Type Severity Reaction Status Date / Time atorvastatin Allergy See Verified 03/04/19 14:49 Comments doxycycline Allergy Rash Verified 03/04/19 14:49 Sulfa (Sulfonamide Allergy Rash Verified 03/04/19 14:49 Antibiotics) codeine AdvReac Nausea Verified 03/04/19 14:49 hydrocodone [From Vicodin] AdvReac Irritable Verified 03/04/19 14:49 Review of Systems: In addition to that documented in the HPI above, the additional ROS was obtained: Constitutional: Denies fevers or chills Eyes: Denies vision changes ENMT: Denies sore throat CV: Denies chest pain Resp: Reports SOB GI: Denies vomiting or diarrhea : Denies painful urination MSK: Denies recent trauma Skin: Denies new rashes Neuro: Denies new numbness or tingling or weakness Endocrine: Denies unexpected weight loss Heme: Denies bleeding disorders Past Medical History - Past Medical History Attestation: Yes The following information was validated with the patient. Medical history: Reports: asthma, cancer, CHF, COPD, coronary artery disease, CVA, dialysis, hyperlipidemia, hypertension, myocardial infarction, other Surgical history: Reports: appendectomy, cholecystectomy Psychiatric history: Reports: anxiety - Social History Smoking Status: Former smoker Smokeless Tobacco Status: No Alcohol use: Reports: none Drug use: Reports: none Physical Exam General: A&O x 3. No acute distress. Well developed, well nourished. Head: atraumatic, normocephalic. ENT: No conjunctival injection, no scleral icterus. PERRLA. EOMI. Oropharynx non- erythematous. mucous membranes moist. Neuro: No focal deficits, no speech deficit, no facial droop, mentating well. BUE/BLE Str 5/5. Pulm: Diffuse wheezes appreciated in all lung castro. Bibasilar crackles. Cardio: Tachycardia. Chest not tender to palpation. Abd: Soft, non-distended. Normoactive bowel sounds. Non-tender to palpation. No guarding. Non rigid. Extremities: Radial pulses 2+ ira, dorsalis pedis/posterior tibialis 2+ ira. Left leg is larger than right. 1+ pitting edema. Skin: warm, dry, intact. No rashes. Psych: Appropriate mood and affect. Answers questions appropriately. Cooperative with exam. - General Limitations: no limitations General appearance: alert Course Vital Signs Temperature 97.7 F 03/03/19 22:28 Pulse Rate 110 03/03/19 22:28 Respiratory Rate 25 03/03/19 22:28 Blood Pressure 172/110 03/03/19 22:28 O2 Sat by Pulse Oximetry 98 03/03/19 22:28 Temperature 97.7 F 03/03/19 22:28 Pulse Rate 96 03/04/19 01:24 Respiratory Rate 22 03/04/19 01:24 Blood Pressure 165/95 03/04/19 01:24 O2 Sat by Pulse Oximetry 95 03/04/19 01:24 Oxygen Delivery Oxygen Delivery Nasal Cannula Shortness of Breath/Dyspnea - MDM Narrative Medical decision making narrative: 68-year-old female with a past medical history of COPD that reports an acute onset of shortness of breath after she tried to lay down this evening. Patient is tachycardic and while she has an underlying COPD PE is a consideration. We will obtain CTA as well as sepsis lab workup and COPD exacerbation workup including CBC, BMP, EKG, chest x-ray. Pt will need dialysis in the morning to maintain her schedule. BUN is appropriate for now. Pt's imaging showed concern for fluid overload or possible aspiration, so she was given 125 solumedrol, 2 additional breathing treatments as she received 1 duoneb at home MANAGER OF LEARNING, and antibiotics to cover aspiration as well as vancomycin given her recent hospitalization. Pt is on 4L and saturating at 91-96% at this time, reports she is normally 94-96% and that she does not normally get so profoundly hypoxic and dyspnic with activities at home. Pt sees Dr. Goncalves but reports that they have not seen him recently. Will suggest consult and admit to hospitalist for further management. Pt was admitted to Dr. Ayala, hospitalist, who agreed to accept the pt to his service. Results of the workup including any imaging and/or labwork was shared with the patient at bedside. Patient was given an opportunity to ask questions at bedside and all of their concerns were addressed. Patient verbalized understanding and agreement with plan of care. Pt remained stable while in the department. - Medical Records Medical records reviewed: Yes I reviewed the patient's medical records. - Lab Data Lab results reviewed: Yes I reviewed the patient's lab results. Result diagrams: 03/04/19 05:17 03/04/19 05:17 Lab Results 03/03/19 03/03/19 03/03/19 Range/Units 22:46 22:46 22:46 WBC 11.6 H (4.3-11.1) K/mcL RBC 4.32 (3.82-4.97) M/mcL Hgb 11.1 L (11.5-15.4) g/dL Hct 36.8 (35.3-44.9) % MCV 85.2 (83.0-100.0) fL MCH 25.7 L (28.0-33.3) pg MCHC 30.2 L (31.6-35.5) g/dL RDW 18.3 H (11.5-14.5) % Plt Count 319 (140-400) K/mcL MPV 10.0 (9.4-12.4) fL Immature Gran % 0.6 (0-4) % Seg Neutrophils % 38.5 % Lymphocytes % 48.1 % Monocytes % 5.7 % Eosinophils % 6.3 % Basophils % 0.8 % Neutrophils # 4.5 (1.6-8.9) K/mcL Lymphocytes # 5.6 H (0.6-4.6) K/mcL Monocytes # 0.7 (0.0-1.3) K/mcL Eosinophils # 0.7 H (0.0-0.6) K/mcL Basophils # 0.1 (0.0-0.2) K/mcL PT 10.1 (9.4-12.1) Seconds INR 0.9 APTT 31.2 (26.0-36.0) Seconds Sodium 131 L (136-145) mEq/L Potassium 5.7 H (3.5-5.1) mEq/L Chloride 100 (98-107) mEq/L Carbon Dioxide 22 L (23-29) mEq/L BUN 21 (8-23) mg/dL Creatinine 4.91 H (0.60-1.20) mg/dL Est GFR ( Amer) 11 L (> 60) Est GFR (Non-Af Amer) 9 L (> 60) BUN/Creatinine Ratio 4 L (6-26) Glucose 162 H (70-105) mg/dL Calculated Osmolality 279 L (280-300) Lactic Acid (0.5-2.2) mmol/L Calcium 9.0 (8.6-10.3) mg/dL Total Bilirubin 0.4 (0.3-1.0) mg/dL Direct Bilirubin 0.1 (0.0-0.2) mg/dL Indirect Bilirubin 0.3 (0.0-1.2) mg/dL AST 11 L (13-39) Units/L ALT 5 L (7-52) Units/L Alkaline Phosphatase 87 (34-104) Units/L Troponin I < 0.03 (< 0.04) ng/mL Serum Total Protein 6.2 L (6.4-8.9) g/dL Albumin 3.7 (3.5-5.7) g/dL Globulin 2.5 (2.4-3.5) g/dL Albumin/Globulin Ratio 1.5 (1.1-2.2) 08/05/19 Range/Units 22:46 WBC (4.3-11.1) K/mcL RBC (3.82-4.97) M/mcL Hgb (11.5-15.4) g/dL Hct (35.3-44.9) % MCV (83.0-100.0) fL MCH (28.0-33.3) pg MCHC (31.6-35.5) g/dL RDW (11.5-14.5) % Plt Count (140-400) K/mcL MPV (9.4-12.4) fL Immature Gran % (0-4) % Seg Neutrophils % % Lymphocytes % % Monocytes % % Eosinophils % % Basophils % % Neutrophils # (1.6-8.9) K/mcL Lymphocytes # (0.6-4.6) K/mcL Monocytes # (0.0-1.3) K/mcL Eosinophils # (0.0-0.6) K/mcL Basophils # (0.0-0.2) K/mcL PT (9.4-12.1) Seconds INR APTT (26.0-36.0) Seconds Sodium (136-145) mEq/L Potassium (3.5-5.1) mEq/L Chloride (98-107) mEq/L Carbon Dioxide (23-29) mEq/L BUN (8-23) mg/dL Creatinine (0.60-1.20) mg/dL Est GFR ( Amer) (> 60) Est GFR (Non-Af Amer) (> 60) BUN/Creatinine Ratio (6-26) Glucose (70-105) mg/dL Calculated Osmolality (280-300) Lactic Acid 1.6 (0.5-2.2) mmol/L Calcium (8.6-10.3) mg/dL Total Bilirubin (0.3-1.0) mg/dL Direct Bilirubin (0.0-0.2) mg/dL Indirect Bilirubin (0.0-1.2) mg/dL AST (13-39) Units/L ALT (7-52) Units/L Alkaline Phosphatase (34-104) Units/L Troponin I (< 0.04) ng/mL Serum Total Protein (6.4-8.9) g/dL Albumin (3.5-5.7) g/dL Globulin (2.4-3.5) g/dL Albumin/Globulin Ratio (1.1-2.2) - Radiology Data Radiology results reviewed: Yes I reviewed the patient's radiology results. Chest X-Ray 03/03/19 22:43 IMPRESSION: Interstitial changes throughout the lungs, likely interstitial edema or possibly infiltrate. Small bilateral pleural effusions. D/ / Levar Schwarz MD / Levar Schwarz MD Interpreting Provider: Levar Schwarz MD Chest CTA 03/04/19 00:01 IMPRESSION: Negative for acute pulmonary embolism. Unchanged penetrating atherosclerotic ulcer along the distal 3rd of the descending thoracic aorta, posteriorly, measuring 9 mm in depth. Features of volume overload, including bilateral pleural effusions and moderate interstitial pulmonary edema. Stable right upper lobe perifissural parenchymal opacity and 13 mm medial left apical subpleural nodule. Tracheobronchial secretions present. Query aspiration risk. D/ / Shree Zurita / Shree Zurita Interpreting Provider: Shree Zurita - EKG Data EKG attestation: Yes I reviewed and interpreted this EKG. EKG results narrative: Heart rate 107, rhythm sinus tachycardia, axis normal intervals within normal limits. There is some peaked T waves appreciated in leads V3 and V4. No ST segment elevation or depression. When compared with previous EKG dated 02/22/2019 previous study shows sinus rhythm with borderline prolonged QT interval which is not appreciated on the current study. Attestation Statement - Attestation Attestation: I have seen this patient with the resident physician, I have personally evaluated this patient. I had reviewed the chart and document dictation by the resident physician and aM in agreement with the information documented by the resident physician. Please see documentation by the resident physician for complete chart including past medical history, family medical history, review of systems, current history and physical and laboratory and imaging studies. I was present for all procedures, provided direct supervision for all procedures, was present for the entirety of all procedures and provided direct guidance during the procedures. Please see documentation by the resident physician for any procedures performed. I have reviewed all interpretations of EKGs, and reviewed all EKGs performed on patient's as well. I have also reviewed reports of imaging as provided by radiology.
[2019-03-04] MEDS ORDERED: Piperacillin/Tazobactam 3.375 GM in 0.9 % Sodium Chloride Mini Bag 100 ML IVPB ONE (00:58)
--- NOTE | 2019-03-04 01:14 | Emergency Department Note ---
Disposition Clinical Impression: Community acquired pneumonia, Congestive heart failure (CHF), Asthma with exacerbation, COPD (chronic obstructive pulmonary disease) Disposition: Admitted As Inpatient Condition: Fair Forms: ED Satisfaction Letter Time of Disposition: 01:16 General Adult HPI - General Chief complaint: ED Shortness of Breath/Dyspnea Stated complaint: LEXA Time Seen by Provider: 03/03/19 22:24 Source: patient, family, EMS Mode of arrival: EMS Limitations: no limitations Nursing Notes Reviewed: Yes Vital Signs Reviewed: Yes - History of Present Illness Pain Scale: 0 - Related Data Home Medications Medication Instructions Recorded Confirmed Atenolol [Tenormin] 50 mg PO DAILY 10/21/18 02/18/19 Clopidogrel [Plavix] 75 mg PO DAILY 10/21/18 02/18/19 Fluticasone/Salmeterol [Advair 1 puff IH BID 10/21/18 02/18/19 250-50 Diskus] Levothyroxine [Synthroid] 75 mcg PO QAM 10/21/18 02/18/19 Losartan Potassium [Cozaar] 50 mg PO BID 10/21/18 02/18/19 amLODIPine [Norvasc] 5 mg PO DAILY 10/21/18 02/18/19 Albuterol Sulfate [Ventolin Hfa] 2 puff IH Q4H PRN 11/14/18 02/18/19 Aspirin [Adult Aspirin Regimen] 81 mg PO DAILY 11/14/18 02/18/19 Ipratropium/Albuterol Sulfate 3 ml IH Q6H PRN 11/14/18 02/18/19 [Iprat-Albut 0.5-3(2.5) mg/3 ml] Ferrous Sulfate [Iron] 325 mg PO DAILY 01/17/19 02/18/19 Isosorbide MONOnitrate (24 HR) 30 mg PO DAILY 01/17/19 02/18/19 [Imdur] LORazepam [Ativan] 1 mg PO 1200 02/04/19 02/18/19 OLANZapine [Zyprexa] 2.5 mg PO HS 02/04/19 02/18/19 Ondansetron HCl [Zofran] 4 mg PO Q6H PRN 02/18/19 02/18/19 Previous Rx's Medication Instructions Recorded LORazepam [Ativan] 0.5 mg PO BID #0 02/05/19 Pantoprazole Sodium [Protonix] 40 mg PO BID #60 tablet. 02/21/19 Sucralfate [Carafate] 1 gm PO QIDAC #120 tablet 02/21/19 Lactose-Reduced Food [Ensure 1 bottle PO TID #90 can 02/22/19 [facility]] Allergies Allergy/AdvReac Type Severity Reaction Status Date / Time atorvastatin Allergy See Verified 02/17/19 03:57 Comments doxycycline Allergy Rash Verified 02/17/19 03:57 Sulfa (Sulfonamide Allergy Rash Verified 02/17/19 03:57 Antibiotics) codeine AdvReac Nausea Verified 02/17/19 03:57 hydrocodone [From Vicodin] AdvReac Irritable Verified 02/17/19 03:57 Past Medical History - Past Medical History Medical history: Reports: asthma, cancer, CHF, COPD, coronary artery disease, CVA, dialysis, hyperlipidemia, hypertension, myocardial infarction, other Surgical history: Reports: appendectomy, cholecystectomy Psychiatric history: Reports: anxiety - Social History Smoking Status: Former smoker Smokeless Tobacco Status: No Alcohol use: Reports: none Drug use: Reports: none Physical Exam - General Limitations: no limitations General appearance: alert Course Vital Signs Temperature 97.7 F 03/03/19 22:28 Pulse Rate 110 03/03/19 22:28 Respiratory Rate 25 03/03/19 22:28 Blood Pressure 172/110 03/03/19 22:28 O2 Sat by Pulse Oximetry 98 03/03/19 22:28 Temperature 97.7 F 03/03/19 22:28 Pulse Rate 99 03/03/19 23:41 Respiratory Rate 24 03/03/19 23:41 Blood Pressure 159/111 03/03/19 23:41 O2 Sat by Pulse Oximetry 95 03/03/19 23:41 Oxygen Delivery Oxygen Delivery Nasal Cannula Medical Decision Making - Lab Data Result diagrams: 03/03/19 22:46 03/03/19 22:46 Lab Results 03/03/19 03/03/19 03/03/19 Range/Units 22:46 22:46 22:46 WBC 11.6 H (4.3-11.1) K/mcL RBC 4.32 (3.82-4.97) M/mcL Hgb 11.1 L (11.5-15.4) g/dL Hct 36.8 (35.3-44.9) % MCV 85.2 (83.0-100.0) fL MCH 25.7 L (28.0-33.3) pg MCHC 30.2 L (31.6-35.5) g/dL RDW 18.3 H (11.5-14.5) % Plt Count 319 (140-400) K/mcL MPV 10.0 (9.4-12.4) fL Immature Gran % 0.6 (0-4) % Seg Neutrophils % 38.5 % Lymphocytes % 48.1 % Monocytes % 5.7 % Eosinophils % 6.3 % Basophils % 0.8 % Neutrophils # 4.5 (1.6-8.9) K/mcL Lymphocytes # 5.6 H (0.6-4.6) K/mcL Monocytes # 0.7 (0.0-1.3) K/mcL Eosinophils # 0.7 H (0.0-0.6) K/mcL Basophils # 0.1 (0.0-0.2) K/mcL PT 10.1 (9.4-12.1) Seconds INR 0.9 APTT 31.2 (26.0-36.0) Seconds Sodium 131 L (136-145) mEq/L Potassium 5.7 H (3.5-5.1) mEq/L Chloride 100 (98-107) mEq/L Carbon Dioxide 22 L (23-29) mEq/L BUN 21 (8-23) mg/dL Creatinine 4.91 H (0.60-1.20) mg/dL Est GFR ( Amer) 11 L (> 60) Est GFR (Non-Af Amer) 9 L (> 60) BUN/Creatinine Ratio 4 L (6-26) Glucose 162 H (70-105) mg/dL Calculated Osmolality 279 L (280-300) Lactic Acid (0.5-2.2) mmol/L Calcium 9.0 (8.6-10.3) mg/dL Total Bilirubin 0.4 (0.3-1.0) mg/dL Direct Bilirubin 0.1 (0.0-0.2) mg/dL Indirect Bilirubin 0.3 (0.0-1.2) mg/dL AST 11 L (13-39) Units/L ALT 5 L (7-52) Units/L Alkaline Phosphatase 87 (34-104) Units/L Troponin I < 0.03 (< 0.04) ng/mL Serum Total Protein 6.2 L (6.4-8.9) g/dL Albumin 3.7 (3.5-5.7) g/dL Globulin 2.5 (2.4-3.5) g/dL Albumin/Globulin Ratio 1.5 (1.1-2.2) 03/03/19 Range/Units 22:46 WBC (4.3-11.1) K/mcL RBC (3.82-4.97) M/mcL Hgb (11.5-15.4) g/dL Hct (35.3-44.9) % MCV (83.0-100.0) fL MCH (28.0-33.3) pg MCHC (31.6-35.5) g/dL RDW (11.5-14.5) % Plt Count (140-400) K/mcL MPV (9.4-12.4) fL Immature Gran % (0-4) % Seg Neutrophils % % Lymphocytes % % Monocytes % % Eosinophils % % Basophils % % Neutrophils # (1.6-8.9) K/mcL Lymphocytes # (0.6-4.6) K/mcL Monocytes # (0.0-1.3) K/mcL Eosinophils # (0.0-0.6) K/mcL Basophils # (0.0-0.2) K/mcL PT (9.4-12.1) Seconds INR APTT (26.0-36.0) Seconds Sodium (136-145) mEq/L Potassium (3.5-5.1) mEq/L Chloride (98-107) mEq/L Carbon Dioxide (23-29) mEq/L BUN (8-23) mg/dL Creatinine (0.60-1.20) mg/dL Est GFR ( Amer) (> 60) Est GFR (Non-Af Amer) (> 60) BUN/Creatinine Ratio (6-26) Glucose (70-105) mg/dL Calculated Osmolality (280-300) Lactic Acid 1.6 (0.5-2.2) mmol/L Calcium (8.6-10.3) mg/dL Total Bilirubin (0.3-1.0) mg/dL Direct Bilirubin (0.0-0.2) mg/dL Indirect Bilirubin (0.0-1.2) mg/dL AST (13-39) Units/L ALT (7-52) Units/L Alkaline Phosphatase (34-104) Units/L Troponin I (< 0.04) ng/mL Serum Total Protein (6.4-8.9) g/dL Albumin (3.5-5.7) g/dL Globulin (2.4-3.5) g/dL Albumin/Globulin Ratio (1.1-2.2) Attestation Statement - Attestation Attestation: I have seen this patient with the resident physician, I have personally evaluated this patient. I had reviewed the chart and document dictation by the resident physician and aM in agreement with the information documented by the resident physician. Please see documentation by the resident physician for complete chart including past medical history, family medical history, review of systems, current history and physical and laboratory and imaging studies. I was present for all procedures, provided direct supervision for all procedures, was present for the entirety of all procedures and provided direct guidance during the procedures. Please see documentation by the resident physician for any procedures performed. I have reviewed all interpretations of EKGs, and reviewed all EKGs performed on patient's as well. I have also reviewed reports of imaging as provided by radiology. Patient presented emergency department with chief complaint of sudden onset of shortness of breath that started this evening, she is a long-standing history of dialysis COPD and CHF, states this started suddenly when she was laying down for nap. No significant chest pain, she has had a little bit of a cough without significant sputum production she states she has seems to be helping her feel better. She denies headache neck pain or jaw pain denies abdominal pain that goes a little bit of increased left lower extremity swelling compared to right recently. She has not missed any dialysis. Upon presentation she is tachycardic, she is without current hypoxemia, on 2 L by nasal cannula. She had some wheezing in her lungs few crackles at the bases bilaterally with a few other scattered coarse breath sounds. Mild tachypnea without retractions or significant accessory muscle use. Cardiovascular regular rhythm, tachycardic, 2/6 systolic murmur no rubs or gallops abdomen is soft and nontender. There was trace right lower extremity edema trace to 1+ left lower extremity edema, no warmth or erythema Homans sign or obvious palpable cord. EKG was a sinus tachycardia no acute ischemia or dysrhythmia hyperkalemia apart from slightly peaked-appearing T waves compared to prior EKG. basic laboratory studies consistent with her history of dialysis, no evidence of significant hyperkalemia, mildly elevated at 5.7 Cardiac enzymes negative lactic acid normal She was given breathing treatment she was given steroids. She was sent for a CT scan of the chest, showed no evidence of pulmonary embolism, bilateral pleural effusions with some evidence for some fluid overload, as well as possible associated interstitial pneumonia. Stable appearance to a aortic ulceration without leak or rupture within the distal thoracic descending aorta. Patient was given antibiotics based upon this. She was admitted to the hospital for further management of pneumonia COPD exacerbation fluid overload and bilateral pleural effusions, with borderline hyperkalemia and need for dialysis in the morning.
[2019-03-04] MEDS ORDERED: Furosemide 40 MG/4 ML VIAL IVP ONE (03:43)
[2019-03-04] MEDS ORDERED: Naloxone 0.4 MG/ML INJ IVP PRN (03:44)
[2019-03-04] MEDS ORDERED: *HR* Dextrose 50 % in Water (Vial) 50 ML VIAL IVP ONE (03:48)
[2019-03-04] MEDS ORDERED: Insulin Human Regular 10 UNIT in 0.9 % Sodium Chloride 10 ML IV ONE (03:56)
[2019-03-04] MEDS: Ipratropium/Albuterol Neb 3 ML IH SCH ×5 (04:26→20:40)
--- NOTE | 2019-03-04 04:27 | Internal Med History&Physical ---
Date of Encounter: 03/04/19 Time of Encounter: 04:04 Internal Medicine - H&P: HPI Chief complaint: SOB History of present illness: Ms. Weeks is a 68 year old female with a past medical history of COPD, end- stage renal disease on dialysis (, , sun) who presented to the ED with increasing shortness of breath. Patient reports she has been having progressive dyspnea which became acutely worse this evening. Patient had been feeling somewhat short of breath yesterday afternoon. Last night she laid down and her breathing became worse. reports her blood pressure shot up and is when he called the squad. No reports of increased lower extremity edema. Patient had her last dialysis session on Sunday and reports missing no session since then. Patient does endorse cough that is nonproductive. No reports of fever or chills, however, reports she broke out into a cold sweat while in the ED. Patient is still able to produce urine but does not take a diuretic. Patient does endorse some wheezing. Patient is currently on 2 L home oxygen. On arrival patient was afebrile, hypertensive and mildly tachycardic. Respiratory rate of 25 saturating 95% on 2 L. Laboratory workup notable for a mild leukocytosis of 11.6, mild hyponatremia of 131, and hyperkalemia 5.7. Chest x-ray and CTA was performed which showed concern for fluid overload but was negative for PE. Patient was given Solu-Medrol and breathing treatments in the ED. She was covered with broad-spectrum antibiotics for possible pneumonia. On my assessment of the patient, she was sitting up in bed with her at her side. Breathing appeared labored. provided most of the answers during the history. Given her labored breathing and evidence of vascular co ngestion, I recommended patient be placed on BiPAP, however, patient develops significant anxiety when placed on BiPAP in the past and does not tolerate. I urged her to reconsider and at least attempt a trial. Patient does not want to be intubated nor undergo CPR. We will give a one-time dose of Lasix. Past Med Surg Social Fam HX - Past Medical History Medical history: asthma, cancer, CHF, COPD, coronary artery disease, CVA, dialysis, hyperlipidemia, hypertension, myocardial infarction, other Additional medical history: lung cancer, FLORENCIO removed Psychiatric history: anxiety - Past Surgical History Surgical History: appendectomy, cholecystectomy Additional surgical history: left upper lobe removed. 3 cardiac stents. dialysis port right upper chest, gallbladder removal - Social History Smoking Status: Former smoker Smokeless Tobacco Status: No Alcohol use: none Drug use: none - Family History Mother Adopted: No Living Status: Age at : 59 Cause of : CHF Hx Family Cardiac Disorders: Yes (CHF) Father Adopted: No Living Status: Age at : 72 Hx Family Cardiac Disorders: Yes (CHF) Hx Family Respiratory Disorders: Yes (emphesema) Hx Family Neuromuscular Disorders: Yes (Parkinsons) Internal Medicine - H&P: Meds Atenolol [Tenormin] 50 mg PO DAILY 10/21/18 [History] Clopidogrel [Plavix] 75 mg PO DAILY 10/21/18 [History] Fluticasone/Salmeterol [Advair 250-50 Diskus] 1 puff IH BID 10/21/18 [History] Levothyroxine [Synthroid] 75 mcg PO QAM 10/21/18 [History] Losartan Potassium [Cozaar] 50 mg PO BID 10/21/18 [History] amLODIPine [Norvasc] 5 mg PO DAILY 10/21/18 [History] Albuterol Sulfate [Ventolin Hfa] 2 puff IH Q4H PRN 11/14/18 [History] Aspirin [Adult Aspirin Regimen] 81 mg PO DAILY 11/14/18 [History] Ipratropium/Albuterol Sulfate [Iprat-Albut 0.5-3(2.5) mg/3 ml] 3 ml IH Q6H PRN 11/14/18 [History] Ferrous Sulfate [Iron] 325 mg PO DAILY 01/17/19 [History] Isosorbide MONOnitrate (24 HR) [Imdur] 30 mg PO DAILY 01/17/19 [History] LORazepam [Ativan] 1 mg PO 1200 02/04/19 [History] OLANZapine [Zyprexa] 2.5 mg PO HS 02/04/19 [History] LORazepam [Ativan] 0.5 mg PO BID #0 02/05/19 [Rx] Ondansetron HCl [Zofran] 4 mg PO Q6H PRN 02/18/19 [History] Pantoprazole Sodium [Protonix] 40 mg PO BID #60 tablet. 02/21/19 [Rx] Sucralfate [Carafate] 1 gm PO QIDAC #120 tablet 02/21/19 [Rx] Lactose-Reduced Food [Ensure Active [employer]] 1 bottle PO TID #90 can 02/22/19 [Rx] Allergy/AdvReac Type Severity Reaction Status Date / Time atorvastatin Allergy See Verified 02/17/19 03:57 Comments doxycycline Allergy Rash Verified 02/17/19 03:57 Sulfa (Sulfonamide Allergy Rash Verified 02/17/19 03:57 Antibiotics) codeine AdvReac Nausea Verified 02/17/19 03:57 hydrocodone [From Vicodin] AdvReac Irritable Verified 02/17/19 03:57 All Systems PM: A 10-system review of systems was performed and is negative for pertinent find ings except as documented above in the HPI. - Constitutional Constitutional: no chills, no fever(s), no night sweats - EENT Eyes: no change in vision, no discharge, no pain, no photophobia Ears: no ear discharge, no ear pain, no tinnitus Nose, mouth and throat: no dysphagia, no nasal discharge, no neck pain, no sore throat - Cardiovascular Cardiovascular ROS IM: no chest pain, no diaphoresis, no dyspnea, no lightheadedness, no palpitations, no syncope - Respiratory Respiratory: no cough, no dyspnea, no wheezing, no excessive phlegm production - Gastrointestinal Gastrointestinal: no abdominal pain, no diarrhea, no hematemesis, no hematochezia, no melena, no nausea, no vomiting - Genitourinary Genitourinary: no change in urinary stream, no dysuria, no flank pain, no hematuria - Musculoskeletal Musculoskeletal ROS IM: no numbness, no tingling - Integumentary Integumentary IM: no rash, no unusual bruising - Neurological Neurological ROS: no confusion, no convulsions, no focal weakness, no numbness, no tingling, no tremor(s) - Hematologic/Lymphatic Hematologic/Lymphatic: no easy bruising - Constitutional Vitals: Temp Pulse Resp BP Pulse Ox 97.4 F L 99 14 170/96 86 03/04/19 03:13 03/04/19 03:13 03/04/19 03:13 03/04/19 03:13 03/04/19 03:13 Exam: General: Alert and oriented 3 lying in bed in mild respiratory distress Skin:Normal color, no rash, no lesions. HEENT:EOM, pupils equal, round and reactive. Cardiovascular:Normal S1 & S2, no rubs, murmurs or gallops. No JVD. Pulse regular. Lungs: Breathing unlabored. Faint wheezing bilaterally Abdomen:Soft, non-tender, no rigidity. Extremities:No deformity, no edema or tenderness, no joint swelling or clubbing. Neurological:Normal cognition and motor skills. Pulses:Carotid and radial pulses normal +2. Rest of the physical exam is non contributory Internal Med - H&P Results - Labs CBC & Chem 7: 03/04/19 05:17 03/04/19 05:17 Labs: Short CBC 03/03/19 Range/Units 22:46 WBC 11.6 H (4.3-11.1) K/mcL Hgb 11.1 L (11.5-15.4) g/dL Hct 36.8 (35.3-44.9) % Plt Count 319 (140-400) K/mcL Neutrophils # 4.5 (1.6-8.9) K/mcL BMP 03/03/19 22:46 Sodium 131 L Potassium 5.7 H Chloride 100 Carbon Dioxide 22 L BUN 21 Creatinine 4.91 H Glucose 162 H Calcium 9.0 Cardiac Enzymes 03/03/19 Range/Units 22:46 Troponin I < 0.03 (< 0.04) ng/mL Liver Function 03/03/19 Range/Units 22:46 Total Bilirubin 0.4 (0.3-1.0) mg/dL Direct Bilirubin 0.1 (0.0-0.2) mg/dL AST 11 L (13-39) Units/L ALT 5 L (7-52) Units/L Alkaline Phosphatase 87 (34-104) Units/L Albumin 3.7 (3.5-5.7) g/dL - Impressions ITS Impressions Chest X-Ray 03/03/19 22:43 IMPRESSION: Interstitial changes throughout the lungs, likely interstitial edema or possibly infiltrate. Small bilateral pleural effusions. D/ / Levar Schwarz MD / Levar Schwarz MD Interpreting Provider: Levar Schwarz MD Chest CTA 03/04/19 00:01 IMPRESSION: Negative for acute pulmonary embolism. Unchanged penetrating atherosclerotic ulcer along the distal 3rd of the descending thoracic aorta, posteriorly, measuring 9 mm in depth. Features of volume overload, including bilateral pleural effusions and moderate interstitial pulmonary edema. Stable right upper lobe perifissural parenchymal opacity and 13 mm medial left apical subpleural nodule. Tracheobronchial secretions present. Query aspiration risk. D/ / Shree Zurita / Shree Zurita Interpreting Provider: Shree Zurita - Assessment and Plan (1) Acute on chronic respiratory failure with hypoxia Current Visit: No Status: Resolved Assessment and plan: Acute on chronic hypoxic respiratory failure likely multifactorial the setting of fluid overload, CHF and COPD plus or minus pneumonia. Patient currently on 3 L. Patient is on 2 L at baseline. Patient has had multiple admissions for fluid overload this year. -Continue treatment for COPD, CHF and possible pneumonia -Patient to undergo dialysis tomorrow morning and will consult nephrology -Patient advised to attempt to wear BiPAP which should help her labored breathing and CHF. Patient expressed anxiety and has not tolerated BiPAP in the past. However patient does not want intubation. -Consult to pulmonology given recurrent admissions for respiratory failure or/respiratory distress (2) COPD exacerbation Current Visit: Yes Status: Acute Assessment and plan: Concern for COPD exacerbation -Duo nebs -Steroids -Continue antibiotics (3) Congestive heart failure (CHF) Current Visit: Yes Status: Acute Assessment and plan: Evidence of pulmonary vascular congestion likely secondary to CHF in the setting of volume overload. -Strict I's and O's; daily weights -We will give patient one-time dose of IV Lasix 80 mg IV push -Resume patient's home dose following dialysis in the morning -We will trial BiPAP if patient can tolerate to help push more fluid into the intravascular space. Qualifiers: Heart failure type: unspecified Heart failure chronicity: acute on chronic Qualified Code(s): I50.9 - Heart failure, unspecified (4) ESRD (end stage renal disease) on dialysis Current Visit: No Status: Acute Assessment and plan: End-stage renal disease on dialysis Sunday, , Sunday. Given patient's concern for volume overload, we will consult nephrology in the morning to arrange for dialysis sooner than later. (5) Hyperkalemia Current Visit: Yes Status: Acute Assessment and plan: Potassium of 5.7. No EKG changes evident. Will give patient 1 time of dextrose and insulin. Remainder to be corrected during dialysis. (6) Pneumonia Current Visit: Yes Status: Acute Assessment and plan: Patient initiated on broad-spectrum antibiotics for possible pneumonia. She does have a mild leukocytosis and cough though this may be secondary to steroids. No fever. Does report some chills -Consider resuming antibiotics have pro-calcitonin positive. Qualifiers: Pneumonia type: due to unspecified organism Lung location: unspecified part of lung Qualified Code(s): J18.9 - Pneumonia, unspecified organism (7) DVT prophylaxis Current Visit: No Status: Chronic Assessment and plan: Subcutaneous heparin - Time Spent With Patient Total time spent is greater than 50% in coordination of care (as documented) at patient's floor/unit and/or counseling patient:
[2019-03-04 05:40] LABS: Basophils % 0.2 %; Eosinophils % 0.1 %; Hematocrit 36.5 % (35.3-44.9); Hemoglobin 10.9 g/dL (11.5-15.4); Immature Granulocytes % 1.3 % (0-4); Lymphocytes # 0.6 K/mcL (0.6-4.6); Mean Corpuscular HGB Conc 29.9 g/dL (31.6-35.5); Mean Corpuscular Hemoglobin 25.9 pg (28.0-33.3); Mean Corpuscular Volume 86.7 fL (83.0-100.0); Mean Platelet Volume 9.2 fL (9.4-12.4); Monocytes # 0.1 K/mcL (0.0-1.3); Monocytes % 0.4 %; Neutrophils # 10.4 K/mcL (1.6-8.9); Platelet Count 276 K/mcL (140-400); Red Blood Count 4.21 M/mcL (3.82-4.97); Red Cell Distribution Width 18.4 % (11.5-14.5); White Blood Count 11.2 K/mcL (4.3-11.1)
[2019-03-04 06:00] LABS: Albumin 3.6 g/dL (3.5-5.7); Albumin/Globulin Ratio 1.4 (1.1-2.2); Bilirubin,Total 0.4 mg/dL (0.3-1.0); Calcium 9.2 mg/dL (8.6-10.3); Globulin 2.5 g/dL (2.4-3.5); Magnesium 1.5 mg/dL (1.6-2.6); Phosphorous 3.5 mg/dL (2.7-4.5); Potassium 5.9 mEq/L (3.5-5.1); Total Protein 6.1 g/dL (6.4-8.9)
[2019-03-04] MEDS ORDERED: MethylPREDNISolone 40 MG/ML VIAL IVP SCH (06:00)
[2019-03-04] MEDS ORDERED: 0.9 % Sodium Chloride 250 ML IVC PRN (08:05)
[2019-03-04] MEDS ORDERED: *HR* Heparin 10,000 UNIT/10 ML VIAL IV PRN (08:05)
[2019-03-04] MEDS ORDERED: 0.9 % Sodium Chloride 1,000 ML PRIME SCH (08:15)
[2019-03-04] MEDS: amLODIPine 5 MG TABLET PO SCH (08:55)
[2019-03-04] MEDS: Isosorbide MONOnitrate (24 HR) 30 MG TAB.ER.24H PO SCH (08:55)
[2019-03-04] MEDS: Aspirin Enteric Coated 81 MG Tablet PO SCH (08:57)
[2019-03-04] MEDS: Azithromycin 500 MG in D5% in Water 250 ML IVPB SCH (08:58)
[2019-03-04] MEDS ORDERED: NON-FORMULARY MEDICATION 1 EACH EACH (Fluticasone/Salmeterol [Advair 250-50 Diskus] 1 PUFF IH SCH (09:00)
[2019-03-04] MEDS ORDERED: Vancomycin 1 EACH in 0.9 % Sodium Chloride 250 ML IVPB PRN (09:00)
[2019-03-04] MEDS ORDERED: NON-FORMULARY MEDICATION 1 EACH EACH (Pantoprazole Sodium [Protonix] 40 MG) PO SCH (09:00)
[2019-03-04] MEDS ORDERED: Aminoglycoside Consult 1 EACH MC ONE (09:32)
--- NOTE | 2019-03-04 10:14 | Nephrology Consult Note ---
Date of Encounter: 03/04/19 Time of Encounter: 10:11 Assessment and Plan (1) ESRD (end stage renal disease) on dialysis Current Visit: No Status: Acute HD TRS. Renal vitamins. Renal dose medications. Renal diet. Additional dialysis and ultrafiltration as needed. Patient seen on dialysis. (2) Hyperkalemia Current Visit: Yes Status: Acute Dialysis today. (3) COPD (chronic obstructive pulmonary disease) Current Visit: Yes Status: Chronic Per the primary team. Qualifiers: COPD type: unspecified COPD Qualified Code(s): J44.9 - Chronic obstructive pulmonary disease, unspecified (4) Anemia Current Visit: No Status: Chronic Her hemoglobin is stable. Transfuse as needed. Qualifiers: Anemia type: iron deficiency Iron deficiency anemia type: unspecified iron deficiency Qualified Code(s): D50.9 - Iron deficiency anemia, unspecified (5) HTN (hypertension) Current Visit: No Status: Chronic Titrate blood pressure medication as needed. Qualifiers: Hypertension type: essential hypertension Qualified Code(s): I10 - Essential (primary) hypertension (6) Acute and chronic respiratory failure Current Visit: No Status: Acute Per the primary team. Etiology seems to be volume overload plus or minus congestive heart failure. Qualifiers: Respiratory failure complication: hypoxia Qualified Code(s): J96.21 - Acute and chronic respiratory failure with hypoxia History of Present Illness - Reason for Consult Consult date: 03/04/19 end stage renal disease - Chief Complaint ESRD - History of Present Illness Ms. Weeks is a 68 yo woman with a history of COPD and ESRD TRS who presents fo r evaluation of worsening dyspnea. She receives hemodyalysis on a TRS schedule under the direction of [facility]. She was seen on dialysis. She denies chest pain. She does admit to dyspnea. She also has some nausea, but no vomiting. For additional details please refer to the admission H&P. Past Med Surg Social Fam HX - Past Medical History Medical history: asthma, cancer, CHF, COPD, coronary artery disease, CVA, dialysis, hyperlipidemia, hypertension, myocardial infarction, other Additional medical history: lung cancer, FLORENCIO removed Psychiatric history: anxiety - Past Surgical History Surgical History: appendectomy, cholecystectomy Additional surgical history: left upper lobe removed. 3 cardiac stents. dialysis port right upper chest, gallbladder removal - Social History Smoking Status: Former smoker Smokeless Tobacco Status: No Alcohol use: none Drug use: none - Family History Mother Adopted: No Living Status: Age at : 59 Cause of : CHF Hx Family Cardiac Disorders: Yes (CHF) Father Adopted: No Living Status: Age at : 72 Hx Family Cardiac Disorders: Yes (CHF) Hx Family Respiratory Disorders: Yes (emphesema) Hx Family Neuromuscular Disorders: Yes (Parkinsons) Medications and Allergies Atenolol [Tenormin] 50 mg PO DAILY 10/21/18 [History] Clopidogrel [Plavix] 75 mg PO DAILY 10/21/18 [History] Fluticasone/Salmeterol [Advair 250-50 Diskus] 1 puff IH BID 10/21/18 [History] Levothyroxine [Synthroid] 75 mcg PO QAM 10/21/18 [History] Losartan Potassium [Cozaar] 50 mg PO BID 10/21/18 [History] amLODIPine [Norvasc] 5 mg PO DAILY 10/21/18 [History] Albuterol Sulfate [Ventolin Hfa] 2 puff IH Q4H PRN 11/14/18 [History] Aspirin [Adult Aspirin Regimen] 81 mg PO DAILY 11/14/18 [History] Ipratropium/Albuterol Sulfate [Iprat-Albut 0.5-3(2.5) mg/3 ml] 3 ml IH Q6H PRN 11/14/18 [History] Ferrous Sulfate [Iron] 325 mg PO DAILY 01/17/19 [History] Isosorbide MONOnitrate (24 HR) [Imdur] 30 mg PO DAILY 01/17/19 [History] LORazepam [Ativan] 1 mg PO 1200 02/04/19 [History] OLANZapine [Zyprexa] 2.5 mg PO HS 02/04/19 [History] LORazepam [Ativan] 0.5 mg PO BID #0 02/05/19 [Rx] Ondansetron HCl [Zofran] 4 mg PO Q6H PRN 02/18/19 [History] Pantoprazole Sodium [Protonix] 40 mg PO BID #60 tablet. 02/21/19 [Rx] Sucralfate [Carafate] 1 gm PO QIDAC #120 tablet 02/21/19 [Rx] Lactose-Reduced Food [Ensure Active Heart Health] 1 bottle PO TID #90 can 02/22/19 [Rx] Allergy/AdvReac Type Severity Reaction Status Date / Time atorvastatin Allergy See Verified 02/17/19 03:57 Comments doxycycline Allergy Rash Verified 02/17/19 03:57 Sulfa (Sulfonamide Allergy Rash Verified 02/17/19 03:57 Antibiotics) codeine AdvReac Nausea Verified 02/17/19 03:57 hydrocodone [From Vicodin] AdvReac Irritable Verified 02/17/19 03:57 Review of Systems All Systems: reviewed and no additional remarkable complaints except as stated (as documented in the HPI.) Exam - Vital Signs Vital signs: Initial Vital Signs Temp Pulse Resp BP Pulse Ox 97.7 F 110 25 172/110 98 03/03/19 22:28 03/03/19 22:28 03/03/19 22:28 03/03/19 22:28 03/03/19 22:28 Vital Signs - Last 8 Hours Temp Pulse Resp BP Pulse Ox 03/04/19 08:15 97.8 F 87 19 169/89 97 03/04/19 07:26 16 95 03/04/19 04:28 24 92 03/04/19 03:13 97.4 F L 99 14 170/96 86 03/04/19 02:27 24 158/107 Intake and Output 03/03/19 03/04/19 03/04/19 23:59 07:59 15:59 Intake Total 10.1 / 10.1 0 / 10.1 Balance 10.1 / 10.1 0 / 10.1 Intake: IV Fluids 10.1 / 10.1 HumuLIN R 10 UNIT In 0.9 % 10.1 / 10.1 Sodium Chloride 10 ML @ 1212 mls/hr IV ONCE ONE Rx#: [id number] Oral 0 / 0 Other: Meal NPO Percent of Meal Consumed 0% Weight 54.703 kg Blood Glucose* 172 - General Appearance General appearance: well-developed, well-nourished EENT: ATNC Neck: supple Respiratory: course breath sounds Cardiology: no edema, regular rate - Dialysis Access Dialysis Vascular Access: Venous Catheter Gastrointestinal: no tenderness Integumentary: warm and dry Neurologic: alert and oriented x3 Musculoskeletal: no cyanosis Psychiatric: mood/affect appropriate Results - Lab Results 03/04/19 05:17 03/04/19 05:17 Most recent lab results 03/03/19 03/04/19 22:46 05:17 Calcium 9.0 9.2 Phosphorus 3.5 Magnesium 1.5 L Consult Discharge Plan - Plan Referrals: NONE,PCP [Primary Care Provider] -
[2019-03-04] MEDS ORDERED: Promethazine Syrup 6.25 MG/5 ML PO ONE (10:40)
[2019-03-04] MEDS: Budesonide/Formoterol 160/4.5 1 PUFF INH IH SCH ×2 (11:35→20:41)
[2019-03-04] MEDS: MethylPREDNISolone 40 MG/ML VIAL IVP SCH ×2 (13:06→17:51)
[2019-03-04] MEDS: Sucralfate 1 GM TABLET PO SCH ×3 (14:25→21:37)
--- NOTE | 2019-03-04 15:37 | Event Note ---
Date of Encounter: 03/04/19 Time of Encounter: 11:00 68 yo female with ESRD TTS, HFpEF 35%, CAD s/p PCI on 10/15, COPD on 2L o2 presented to the hospital with shortness of breath, cough and sputum production. She had multiple admissions in the past few months for the same presentation. CTA was done and was negative for PE, Current features of volume overload including bilateral pleural effusion and moderate interstitial pulmonary edema. As per the , patient blood pressure was not controlled yesterday and it was 180/120 before presentation. Her symptoms are managed as following: Acute on chronic hypoxic respiratory failure: - From volume overload, COPD exacerbation and questionable pneumonia. - For COPD: Continue Solu-Medrol every 12 hours, breathing treatment, azithromycin and home dose inhalers. - HFrEF: ?hypertensive emergency, One dose of lasix was given, today for HD. Patient is on home O2 requirements. EKG with no ischemic changes, troponin is negative 2. - Continue with cefepime and azithromycin, MRSA swab was negative and VANc D/C. She is afebrile and HDS. CBC tomorrow. ESRD: - Today for HD. Nephro is following. HTN: - not well controlled, on norvasc 5 mg at home, losartan and atenolol. - We will stop atenolol and start the patient on carvedilol 3.125 and titrate up as tolerated. Esophagitis: - Continue PPI and Carafate Hypothyroidism: - Home dose levothyroxine. CAD status post stent: - Continue aspirin and Plavix, and beta blockers.
[2019-03-04] MEDS ORDERED: Cefepime HCl 1,000 MG in Water for inj. (sterile) 10 ML IVP SCH (18:00)
[2019-03-04] MEDS: OLANZapine 5 MG TAB.RAPDIS PO SCH (21:37)
[2019-03-04] MEDS: *HR* LORazepam 0.5 MG TABLET PO SCH (21:37)
[2019-03-05] MEDS: Ipratropium/Albuterol Neb 3 ML IH SCH ×6 (00:06→20:04)
[2019-03-05 05:22] LABS: Hematocrit 31.8 % (35.3-44.9); Hemoglobin 10.1 g/dL (11.5-15.4); Mean Corpuscular HGB Conc 31.8 g/dL (31.6-35.5); Mean Corpuscular Hemoglobin 26.1 pg (28.0-33.3); Mean Corpuscular Volume 82.2 fL (83.0-100.0); Mean Platelet Volume 9.8 fL (9.4-12.4); Platelet Count 266 K/mcL (140-400); Red Blood Count 3.87 M/mcL (3.82-4.97); Red Cell Distribution Width 18.3 % (11.5-14.5)
[2019-03-05] MEDS: MethylPREDNISolone 40 MG/ML VIAL IVP SCH (05:32)
[2019-03-05 05:36] LABS: Calcium 8.9 mg/dL (8.6-10.3); Potassium 4.9 mEq/L (3.5-5.1)
--- NOTE | 2019-03-05 06:28 | Electrocardiograph Report ---
[place] [facility] Test Date: 2019-03-03 Pat Name: Clemencia Weeks Department: [id number] Room: 2A26 Gender: F [employer] Helper: : [id number] Requested By: Debbie Norton Order Number: [id number] Reading MD: Bill Tucker Measurements Intervals [place] Rate: 107 P: 65 DC: 163 QRS: 58 QRSD: 91 T: 42 QT: 333 QTc: 445 Interpretive Statements Sinus tachycardia Electronically Signed On 03-05-2019 6:26:29 EDT by Bill Tucker
[2019-03-05] MEDS: Budesonide/Formoterol 160/4.5 1 PUFF INH IH SCH ×2 (07:20→20:03)
[2019-03-05] MEDS: Azithromycin 500 MG in D5% in Water 250 ML IVPB SCH (10:34)
[2019-03-05] MEDS: Isosorbide MONOnitrate (24 HR) 30 MG TAB.ER.24H PO SCH (10:34)
[2019-03-05] MEDS: Aspirin Enteric Coated 81 MG Tablet PO SCH (10:36)
[2019-03-05] MEDS: Sucralfate 1 GM TABLET PO SCH ×3 (10:36→22:36)
[2019-03-05] MEDS: amLODIPine 5 MG TABLET PO SCH (10:37)
[2019-03-05] MEDS: *HR* LORazepam 0.5 MG TABLET PO SCH (10:37)
--- NOTE | 2019-03-05 12:40 | Nephrology Progress Note ---
Date of Encounter: 03/05/19 Time of Encounter: 12:35 - Assessment and Plan (1) ESRD (end stage renal disease) on dialysis Current Visit: No Status: Acute HD TTS. Renal vitamins. Renal dose medications. Renal diet. Additional dialysis and ultrafiltration as needed. Plan on HD tomorrow. (2) Acute and chronic respiratory failure Current Visit: No Status: Acute Per the primary team. Etiology seems to be volume overload plus or minus congestive heart failure. Qualifiers: Respiratory failure complication: hypoxia Qualified Code(s): J96.21 - Acute and chronic respiratory failure with hypoxia (3) COPD (chronic obstructive pulmonary disease) Current Visit: Yes Status: Chronic Per the primary team. Qualifiers: COPD type: unspecified COPD Qualified Code(s): J44.9 - Chronic obstructive pulmonary disease, unspecified (4) HTN (hypertension) Current Visit: No Status: Chronic Titrate blood pressure medication as needed. Qualifiers: Hypertension type: essential hypertension Qualified Code(s): I10 - Essential (primary) hypertension (5) Anemia Current Visit: No Status: Chronic Her hemoglobin is stable. Transfuse as needed. Qualifiers: Anemia type: iron deficiency Iron deficiency anemia type: unspecified iron deficiency Qualified Code(s): D50.9 - Iron deficiency anemia, unspecified (6) Hyperkalemia Current Visit: Yes Status: Acute Dialysis today. (7) Altered mental status Current Visit: Yes Status: Acute Spoke with primary team, suggested to decrease Ativan dosage. Current dosage is 0.5 mg PO TID scheduled. Pt exhibiting signs of hallucination with exam. Qualifiers: Qualified Code(s): R41.82 - Altered mental status, unspecified Subjective Principal diagnosis: difficulty in breathing Interval history: Patient seen and examined, is confused at this time. Denies chest pain admits to chronic shortness of breath. Denies emesis. Admits to diarrhea and nausea. Pt states "it looks like you have been at the beach, you have sand all overr you". Reoriented to person, place, and time. Objective - Vital Signs Vital signs: Vital Signs Temp Pulse Resp BP Pulse Ox 03/05/19 11:16 98.1 F 92 20 125/88 94 03/05/19 07:41 98.2 F 90 18 156/91 97 03/05/19 07:21 18 96 03/05/19 04:53 98.2 F 101 16 153/97 95 03/05/19 04:37 17 96 03/05/19 01:24 98.9 F 100 17 162/95 95 03/04/19 22:08 98.9 F 98 18 161/99 96 03/04/19 21:53 96 03/04/19 17:06 16 97 03/04/19 16:28 98.1 F 95 18 159/97 99 03/04/19 14:00 97.9 F 16 160/96 03/04/19 13:45 111/83 03/04/19 13:30 112/79 03/04/19 13:15 152/99 03/04/19 13:00 155/94 03/04/19 12:45 166/99 Intake and Output 03/04/19 03/05/19 03/05/19 23:59 07:59 15:59 Intake Total 0 / 860.1 100 / 100 Output Total 0 / 3600 Balance 0 / -2739.9 100 / 100 Intake: Oral 0 / 0 100 / 100 Output: Urine 0 / 0 Other: # Voids 1 1 Weight 55.6 kg Patient Weight 03/05/19 23:59 Weight 55.6 kg - General Appearance General appearance: Present: chronically ill, frail EENT: Present: ATNC, hearing intact, vision intact Neck: Present: supple Respiratory: Present: clear Cardiology: Present: no edema, normal S1, normal S2 Dialysis Vascular Access: Venous Catheter (DRSG C/D/I) Gastrointestinal: Present: normoactive bowel sounds, no tenderness, no guarding Integumentary: Present: no rash, warm and dry Neurologic: Present: alert and oriented x3 Musculoskeletal: Present: no deformities, no erythema Psychiatric: Present: mood/affect appropriate, cooperative - Lab 03/05/19 05:02 03/05/19 05:02 Most recent lab results 03/05/19 05:02 Calcium 8.9 Consult Discharge Plan - Plan Referrals: NONE,PCP [Primary Care Provider] -
--- NOTE | 2019-03-05 14:51 | Internal Med Progress Note ---
Hospitalist Progress Note - Encounter Date of Encounter: 03/05/19 Time of Encounter: 10:00 - Subjective Interval History: Patient was seen with her this morning. She is complaining about nausea and vomiting. She denied abdominal pain, fever or chills. She reported improvement in her breathing compared to admission. - Exam Vitals: Temp Pulse Resp BP Pulse Ox 98.1 F 92 20 125/88 94 03/05/19 11:16 03/05/19 11:16 03/05/19 11:16 03/05/19 11:16 03/05/19 11:16 Exam: General: Alert and oriented 3 lying in bed in no respiratory distress Skin:Normal color, no rash, no lesions. HEENT:EOM, pupils equal, round and reactive. Cardiovascular:Normal S1 & S2, no rubs, murmurs or gallops. No JVD. Pulse regular. Lungs: Breathing unlabored, diminished lung sounds bilaterally Abdomen:Soft, non-tender, no rigidity. Extremities:No deformity, no edema or tenderness, no joint swelling or clubbing. Neurological:Normal cognition and motor skills. Pulses:Carotid and radial pulses normal +2. Rest of the physical exam is non contributory - Assessment and Plan (1) COPD exacerbation Current Visit: Yes Status: Acute (2) Congestive heart failure (CHF) Current Visit: No Status: Acute (3) Acute on chronic respiratory failure with hypoxia Current Visit: Yes Status: Resolved (4) ESRD (end stage renal disease) on dialysis Current Visit: Yes Status: Chronic (5) Hyperkalemia Current Visit: Yes Status: Resolved (6) Pneumonia Current Visit: Yes Status: Acute (7) DVT prophylaxis Current Visit: No Status: Chronic - Summary of Assessment and Plan Summary of Assessment and Plan: 68 yo female with ESRD TTS, HFpEF 35%, CAD s/p PCI on 10/15, COPD on 2L o2 presented to the hospital with shortness of breath, cough and sputum production. She had multiple admissions in the past few months for the same presentation. CTA was done and was negative for PE, Current features of volume overload including bilateral pleural effusion and moderate interstitial pulmonary edema. As per the , patient blood pressure was not controlled yesterday and it was 180/120 before presentation. Her symptoms are managed as following: Acute on chronic hypoxic respiratory failure: - From volume overload, COPD exacerbation and questionable pneumonia. - For COPD: switch Solu-Medrol to prednisone , breathing treatment, azithromycin and home dose inhalers. - HFrEF: ?hypertensive emergency, One dose of lasix was given, tomorrow for HD. Patient is on home O2 requirements at 2L. EKG with no ischemic changes, troponin is negative 2. - Low suspicion for pneumonia, DC cefepime and continue azithromycin day 2/5, MRSA swab was negative and VANc D/C. She is afebrile and HDS. CBC tomorrow. Leukocytosis: - Up trending today, most likely due to steroids. - Blood cultures are negative, check CBC tomorrow Nausea and vomiting: -Change diet to a clear liquid diet and advance as tolerated -Increase Protonix to 40 mg BID and continue with Carafate ESRD: - Tomorrow for HD. Nephro is following. HTN: - Controlled, on norvasc 5 mg at home, losartan and atenolol. - We will stop atenolol and start the patient on carvedilol 3.125 and titrate up as tolerated. Hypothyroidism: - Home dose levothyroxine. CAD status post stent: - Continue aspirin and Plavix, and beta blockers. DVT prophylaxis: sc heparin - Time Spent with Patient Total time spent is greater than 50% in coordination of care (as documented) at patient's floor/unit and/or counseling patient: Plan of Care Discussed with: patient Internal Medicine: Result - Labs CBC & Chem 7: 03/05/19 05:02 03/05/19 05:02 Labs: Short CBC 03/05/19 Range/Units 05:02 WBC 20.0 H D (4.3-11.1) K/mcL Hgb 10.1 L (11.5-15.4) g/dL Hct 31.8 L (35.3-44.9) % Plt Count 266 (140-400) K/mcL BMP 03/05/19 05:02 Sodium 131 L Potassium 4.9 Chloride 95 L Carbon Dioxide 26 BUN 17 Creatinine 3.45 H Glucose 127 H Calcium 8.9 - ABG Interpretation ABG results: PT/INR, D-dimer PT 10.1 Seconds (9.4-12.1) 03/03/19 22:46 Consult Discharge Plan - Plan Referrals: NONE,PCP [Primary Care Provider] - (2) Congestive heart failure (CHF) Qualifiers: Heart failure type: unspecified Heart failure chronicity: acute on chronic Qualified Code(s): I50.9 - Heart failure, unspecified (6) Pneumonia Qualifiers: Pneumonia type: due to unspecified organism Lung location: unspecified part of lung Qualified Code(s): J18.9 - Pneumonia, unspecified organism
[2019-03-05] MEDS: OLANZapine 5 MG TAB.RAPDIS PO SCH (20:51)
[2019-03-06] MEDS: Ipratropium/Albuterol Neb 3 ML IH SCH ×8 (00:01→23:40)
[2019-03-06] MEDS: Acetaminophen 325 MG TABLET PO PRN ×2 (00:54→17:20)
[2019-03-06 06:23] LABS: Hematocrit 27.1 % (35.3-44.9); Hemoglobin 8.9 g/dL (11.5-15.4); Mean Corpuscular HGB Conc 32.8 g/dL (31.6-35.5); Mean Corpuscular Hemoglobin 26.3 pg (28.0-33.3); Mean Corpuscular Volume 80.2 fL (83.0-100.0); Platelet Count 228 K/mcL (140-400); Red Blood Count 3.38 M/mcL (3.82-4.97); Red Cell Distribution Width 17.6 % (11.5-14.5); White Blood Count 17.1 K/mcL (4.3-11.1)
[2019-03-06 06:43] LABS: Calcium 8.3 mg/dL (8.6-10.3); Potassium 4.4 mEq/L (3.5-5.1)
[2019-03-06] MEDS: Budesonide/Formoterol 160/4.5 1 PUFF INH IH SCH ×2 (07:21→20:12)
[2019-03-06] MEDS ORDERED: 0.9 % Sodium Chloride 250 ML IVC PRN (08:21)
[2019-03-06] MEDS ORDERED: *HR* Heparin 10,000 UNIT/10 ML VIAL IV PRN (08:21)
[2019-03-06] MEDS: Aspirin Enteric Coated 81 MG Tablet PO SCH (08:46)
[2019-03-06] MEDS: Azithromycin 500 MG in D5% in Water 250 ML IVPB SCH (08:47)
[2019-03-06] MEDS ORDERED: *HR* LORazepam 0.5 MG TABLET PO SCH (09:00)
[2019-03-06] MEDS ORDERED: predniSONE 20 MG TABLET PO SCH (09:00)
--- NOTE | 2019-03-06 09:57 | Nephrology Progress Note ---
Date of Encounter: 03/06/19 Time of Encounter: 09:55 - Assessment and Plan (1) ESRD (end stage renal disease) on dialysis Current Visit: Yes Status: Chronic HD TTS. Renal vitamins. Renal dose medications. Renal diet. Additional dialysis and ultrafiltration as needed. Plan for HD today. (2) Acute and chronic respiratory failure Current Visit: No Status: Acute Per the primary team. Etiology seems to be volume overload plus or minus conges tive heart failure. Qualifiers: Respiratory failure complication: hypoxia Qualified Code(s): J96.21 - Acute and chronic respiratory failure with hypoxia (3) COPD (chronic obstructive pulmonary disease) Current Visit: Yes Status: Chronic Per the primary team. Qualifiers: COPD type: unspecified COPD Qualified Code(s): J44.9 - Chronic obstructive pulmonary disease, unspecified (4) HTN (hypertension) Current Visit: No Status: Chronic Titrate blood pressure medication as needed. Qualifiers: Hypertension type: essential hypertension Qualified Code(s): I10 - Essential (primary) hypertension (5) Anemia Current Visit: No Status: Chronic Her hemoglobin is stable. Transfuse as needed. Qualifiers: Anemia type: iron deficiency Iron deficiency anemia type: unspecified iron deficiency Qualified Code(s): D50.9 - Iron deficiency anemia, unspecified (6) Hyperkalemia Current Visit: Yes Status: Resolved Dialysis today, she is back on TTS schedule. (7) Altered mental status Current Visit: Yes Status: Acute Spoke with primary team, suggested to decrease Ativan dosage. Current dosage is 0.5 mg PO TID scheduled. Pt exhibiting signs of hallucination with exam. Qualifiers: Qualified Code(s): R41.82 - Altered mental status, unspecified Subjective Principal diagnosis: difficulty in breathing Interval history: Patient seen and examined, is still confused at this time. Denies chest pain admits to chronic shortness of breath. Denies emesis. Admits to diarrhea and nausea. Reoriented to person, place, and time. Objective - Vital Signs Vital signs: Vital Signs Temp Pulse Resp BP Pulse Ox 03/06/19 09:27 98.0 F 81 20 112/78 95 03/06/19 07:21 16 97 03/06/19 06:38 97.9 F 82 22 142/90 97 03/06/19 04:24 98.1 F 79 17 143/81 97 03/06/19 01:09 18 94 03/06/19 00:35 97.8 F 86 19 148/84 92 03/05/19 23:06 93 03/05/19 22:52 97.6 F 89 19 148/86 93 03/05/19 20:10 14 90 03/05/19 19:20 97.7 F 96 19 149/92 93 03/05/19 16:56 97.9 F 84 18 163/94 95 03/05/19 15:28 22 95 03/05/19 11:16 98.1 F 92 20 125/88 94 Intake and Output 03/05/19 03/06/19 03/06/19 23:59 07:59 15:59 Intake Total 480 / 830 Balance 480 / 830 Intake: Oral 480 / 580 Other: Meal Dinner Weight 55.9 kg Blood Glucose* 87 Patient Weight 03/06/19 23:59 Weight 55.9 kg - General Appearance General appearance: Present: chronically ill, frail EENT: Present: ATNC, hearing intact, vision intact Neck: Present: supple Respiratory: Present: clear Cardiology: Present: no edema, normal S1, normal S2 Dialysis Vascular Access: Venous Catheter (DRSG C/D/I) Gastrointestinal: Present: normoactive bowel sounds, no tenderness, no guarding Integumentary: Present: no rash, warm and dry Neurologic: Present: confused Musculoskeletal: Present: no deformities, no erythema Psychiatric: Present: mood/affect appropriate, cooperative - Lab 03/06/19 06:05 03/06/19 06:05 Most recent lab results 03/06/19 06:05 Calcium 8.3 L Consult Discharge Plan - Plan Referrals: NONE,PCP [Primary Care Provider] -
[2019-03-06] MEDS: Sucralfate 1 GM TABLET PO SCH ×5 (10:30→21:08)
[2019-03-06] MEDS: amLODIPine 5 MG TABLET PO SCH (10:30)
[2019-03-06] MEDS: Isosorbide MONOnitrate (24 HR) 30 MG TAB.ER.24H PO SCH (10:31)
[2019-03-06 11:05] LABS: ABG Base Excess 4 mEq/L (-2 to 3); ABG HCO3 29 mEq/L (21-27); ABG Oxygen Saturation 93 % (95-98); ABG PCO2 42 mmHg (35-45); ABG PH 7.44 pH Units (7.32-7.45); ABG PO2 63 mmHg (85-104); ABG TCO2 30 mEq/L (20-26)
--- NOTE | 2019-03-06 11:44 | Palliative - Consult Note ---
Date of Encounter: 03/06/19 Time of Encounter: 11:00 - Assessment and Plan (1) Goals of care, counseling/discussion Current Visit: Yes Status: Acute Assessment and plan: 14:00 to 14:40: Extensive family meeting with pt's Ze ans pt's son. Patient was awake, but confused, unable to participate in conversation. Discusse d current medical condition, trajectory of illness, treatment options and overall poor prognosis. Ze noted that pt's health have been steadily deteriorating, and now she needs to be hospitalized about every other week, not able to eat for the last few week without vomiting. He is aware that pt's body is failing, and became very emotional. He stated that pt this time did not want to come to the hospital even though she new she would , however he is unable to watch her at home when she is not well. Pt's wish is to at home, but son and feel unable to bear it. Discuss transition to comfort care and hospice. Explained the philosophy of hospice and the services and support offere d at home. Discuss that election for hospice in this case will require d/c of HD. is hesitant to make changes when something may still be done. Also Ze would like to attempt discussing with pt about hospice. Decision was made to continue on current level of care and watch pt overnight. Palliative care to meet again with family tomorrow at 1pm for further discussion. (2) Nausea Current Visit: No Status: Acute Assessment and plan: Patient is on clear liquid diet, no intake today. continue protonix Recommend zofran prn (3) Acute on chronic respiratory failure with hypoxia Current Visit: Yes Status: Resolved Assessment and plan: from fluid overload and COPD. Management per primary team. (4) ESRD (end stage renal disease) on dialysis Current Visit: Yes Status: Chronic Assessment and plan: HD today. (5) Altered mental status Current Visit: Yes Status: Acute Assessment and plan: Patient is confused, not sure if this is due to medication or delirium due to medical condition. Ativan and promethazine were d/c will continue to follow Qualifiers: Qualified Code(s): R41.82 - Altered mental status, unspecified (6) Palliative care encounter Current Visit: Yes Status: Acute Palliative-CN HPI - Data of Consult Patient: new to practice Consult date: 03/06/19 Requesting Physician: Adela Fitzgerald Primary Care Provider: PCP NONE - Consult Narrative Palliative Care/Comfort Measures: Palliative care Reason for consult: [facility] admissions, Goals of care History of present illness: Ms. Weeks is a 68 year old female with a past medical history of COPD on 2L home oxygen, end-stage renal disease on dialysis (, , sat), CHF EF 35%, who presented to the ED with increasing shortness of breath and cough. Patient was admitted and being treated for COPD exacerbation. During hospital stay, pt has been complaining frequently of nausea and vomiting. This is pt's 4th hospital admission since she had BJ leading to HD in 11/15. Code status is listed as DNRCCA and DNI. Palliative care consult for goals of care discussion. At the time of exam, pt was in HD, she was alert, knows her name, but is otherwise confused, mumbling unintelligible answers. Per dialysis nurse, pt is ussually AAOx3, and believes her confusion is medication induced. She denies pain and shortness of breath at this time. CC: Adela Fitzgerald - Time Spent with Patient Time: Total time spent is greater than 50% in coordination of care (as documented) at patient's floor/unit and/or counseling patient: Past Med Surg Social Fam HX - Past Medical History Medical history: asthma, cancer, CHF, COPD, coronary artery disease, CVA, dialysis, hyperlipidemia, hypertension, myocardial infarction, other Additional medical history: lung cancer, FLORENCIO removed Psychiatric history: anxiety - Past Surgical History Surgical History: appendectomy, cholecystectomy Additional surgical history: left upper lobe removed. 3 cardiac stents. dialysis port right upper chest, gallbladder removal - Social History Smoking Status: Former smoker Smokeless Tobacco Status: No Alcohol use: none Drug use: none - Family History Mother Adopted: No Living Status: Age at : 59 Cause of : CHF Hx Family Cardiac Disorders: Yes (CHF) Father Adopted: No Living Status: Age at : 72 Hx Family Cardiac Disorders: Yes (CHF) Hx Family Respiratory Disorders: Yes (emphesema) Hx Family Neuromuscular Disorders: Yes (Parkinsons) Medications and Allergies Atenolol [Tenormin] 50 mg PO DAILY 10/21/18 [History] Clopidogrel [Plavix] 75 mg PO DAILY 10/21/18 [History] Fluticasone/Salmeterol [Advair 250-50 Diskus] 1 puff IH BID 10/21/18 [History] Levothyroxine [Synthroid] 75 mcg PO QAM 10/21/18 [History] Losartan Potassium [Cozaar] 50 mg PO BID 10/21/18 [History] amLODIPine [Norvasc] 2.5 mg PO DAILY 10/21/18 [History] Albuterol Sulfate [Ventolin Hfa] 2 puff IH Q4H PRN 11/14/18 [History] Aspirin [Adult Aspirin Regimen] 81 mg PO DAILY 11/14/18 [History] Ipratropium/Albuterol Sulfate [Iprat-Albut 0.5-3(2.5) mg/3 ml] 3 ml IH Q6H PRN 11/14/18 [History] Ferrous Sulfate [Iron] 325 mg PO DAILY 01/17/19 [History] Isosorbide MONOnitrate (24 HR) [Imdur] 30 mg PO DAILY 01/17/19 [History] OLANZapine [Zyprexa] 2.5 mg PO HS 02/04/19 [History] Ondansetron HCl [Zofran] 4 mg PO Q6H PRN 02/18/19 [History] Pantoprazole Sodium [Protonix] 40 mg PO BID #60 tablet. 02/21/19 [Rx] Sucralfate [Carafate] 1 gm PO QIDAC #120 tablet 02/21/19 [Rx] Lactose-Reduced Food [Ensure Active Heart Health] 1 bottle PO TID #90 can 02/22/19 [Rx] LORazepam [Ativan] 0.5 mg PO TID 03/04/19 [History] Allergy/AdvReac Type Severity Reaction Status Date / Time atorvastatin Allergy See Verified 03/04/19 14:49 Comments doxycycline Allergy Rash Verified 03/04/19 14:49 Sulfa (Sulfonamide Allergy Rash Verified 03/04/19 14:49 Antibiotics) codeine AdvReac Nausea Verified 03/04/19 14:49 hydrocodone [From Vicodin] AdvReac Irritable Verified 03/04/19 14:49 ROS unobtainable: due to mental status Review of systems: denies pain, denies SOB Palliative Care-Exam - Constitutional Vitals: Temp Pulse Resp BP Pulse Ox 98.0 F 81 20 112/78 95 03/06/19 09:27 03/06/19 09:27 03/06/19 09:27 03/06/19 09:27 03/06/19 09:27 Exam: General appearance: Present: chronically ill, frail EENT: Present: ATNC, hearing intact, vision intact Neck: Present: supple Respiratory: Present: clear Cardiology: Present: no edema, normal S1, normal S2 Dialysis Vascular Access: Venous Catheter (DRSG C/D/I) Gastrointestinal: Present: normoactive bowel sounds, no tenderness, no guarding Integumentary: Present: no rash, warm and dry Neurologic: Present: confused Musculoskeletal: Present: no deformities, no erythema Psychiatric: Present: mood/affect appropriate, cooperative Internal Medicine - CN: Reslt - Labs CBC & Chem 7: 03/06/19 06:05 03/06/19 06:05 Labs: Short CBC 03/06/19 Range/Units 06:05 WBC 17.1 H (4.3-11.1) K/mcL Hgb 8.9 L (11.5-15.4) g/dL Hct 27.1 L (35.3-44.9) % Plt Count 228 (140-400) K/mcL BMP 03/06/19 06:05 Sodium 124 L Potassium 4.4 Chloride 87 L Carbon Dioxide 27 BUN 32 H Creatinine 4.69 H Glucose 85 Calcium 8.3 L - ABG Interpretation ABG results: ABG ABG pH 7.44 pH Units (7.32-7.45) 03/06/19 11:02 ABG pCO2 42 mmHg (35-45) 03/06/19 11:02 ABG pO2 63 mmHg (85-104) L 03/06/19 11:02 ABG O2 Saturation 93 % (95-98) L 03/06/19 11:02 PT/INR, D-dimer PT 10.1 Seconds (9.4-12.1) 03/03/19 22:46 Consult Discharge Plan - Plan Referrals: NONE,PCP [Primary Care Provider] - Palliative Quality Palliative Quality: Screen for Code Status: Yes, Screen for Goals of Care: Yes, Screen for Pain: Yes, Screen for Nausea/Vomitting: Yes Code Status: 03/04/19 03:44 Resuscitation Status: Active [RES] Routine Comment: Resuscitation Status: [id number] Palliative Scale - Palliative Performance Scale How ambulatory is this patient?: Mainly in bed What is patient's level of activity and evidence of disease?: Unable to do any work, Extensive disease How much self-care assistance does patient require?: Considerable assistance required How much oral intake does the patient have?: Minimal to sips What is this patient's level of consciousness?: Full Palliative Performance Score: 30 %
--- NOTE | 2019-03-06 14:52 | Internal Med Progress Note ---
Hospitalist Progress Note - Encounter Date of Encounter: 03/06/19 Time of Encounter: 10:00 - Subjective Interval History: Patient was seen this morning with her . She looked somehow confused. She complained about chest pain as per the nurse but she pointed out to her stomach during my physical exam. - Exam Vitals: Temp Pulse Resp BP Pulse Ox 97.9 F 81 18 122/73 95 03/06/19 09:55 03/06/19 09:27 03/06/19 09:55 03/06/19 12:25 03/06/19 09:27 Exam: General: Patient is alert, but oriented 1, somnolent and sleepy Head: Atraumatic, normal inspection, normocephalic. Eye: EOMI, PERRLA, no scleral icterus noted. ENT: Mucous membranes moist. No odontogenic infection noted. Neck: Normal inspection, no meningismus. Right TDC Respiratory: Diminished lung sounds bilaterally Cardiovascular: Regular rate and regular rhythm,. GI: Soft, nondistended, normal bowel sounds. Extremities:No joint swelling, pedal edema, or tenderness noted. Psychiatric: normal affect, normal mood. Skin: Dry, intact, warm. Normal color. No rashes. - Assessment and Plan (1) COPD exacerbation Current Visit: Yes Status: Acute (2) Congestive heart failure (CHF) Current Visit: No Status: Acute (3) Acute on chronic respiratory failure with hypoxia Current Visit: Yes Status: Resolved (4) ESRD (end stage renal disease) on dialysis Current Visit: Yes Status: Chronic (5) Hyperkalemia Current Visit: Yes Status: Resolved (6) Pneumonia Current Visit: Yes Status: Acute (7) DVT prophylaxis Current Visit: No Status: Chronic - Summary of Assessment and Plan Summary of Assessment and Plan: 68 yo female with ESRD TTS, HFpEF 35%, CAD s/p PCI on 10/15, COPD on 2L o2 presented to the hospital with shortness of breath, cough and sputum production. She had multiple admissions in the past few months for the same presentation. CTA was done and was negative for PE, Current features of volume overload including bilateral pleural effusion and moderate interstitial pulmonary edema. As per the , patient blood pres sure was not controlled yesterday and it was 180/120 before presentation. Her symptoms are managed as following: Acute on chronic hypoxic respiratory failure: - From volume overload, COPD exacerbation and less likely pneumonia. - For COPD: switch Solu-Medrol to prednisone , breathing treatment, azithromycin and home dose inhalers. - HFrEF: ?hypertensive emergency, One dose of lasix was given, today for HD. Patient is on home O2 requirements at 2L. EKG with no ischemic changes, troponin is negative 2 initially. - Low suspicion for pneumonia, CT scan is negative for consolidation or new opac ities DC cefepime. continue azithromycin day 3/5, MRSA swab was negative and VANc D/C. She is afebrile and HDS. CBC tomorrow. Chest pain: - New event, today. EKG: Sinus Rhythm with no ischemic changes - Troponin 0.04 likely from her underlying CAD. She was asymptomatic this afternoon. We will check another troponin. Leukocytosis: Improved - most likely due to steroids. - Blood cultures are negative, check CBC tomorrow Acute metabolic Encephalopathy: - Likely iatrogenic from phenegren and ativan. will hold - ABG without CO2 retention. Nausea and vomiting: Resolved -Change diet to a clear liquid diet and advance as tolerated -Increase Protonix to 40 mg BID and continue with Carafate ESRD: - Today for HD. Nephro is following. HTN: - Controlled, on norvasc 5 mg at home, losartan and atenolol. - We will stop atenolol and start the patient on carvedilol 3.125 and titrate up as tolerated. Hypothyroidism: - Home dose levothyroxine. CAD status post stent: - Continue aspirin and Plavix, and beta blockers. Discussed with the patient critical in this and her multiple hosp italizations in the past few months. We will keep her CODE STATUS is DNR comfort care, also Palliative team for hospice options. DVT prophylaxis: sc heparin I reviewed independently all laboratory workup, pertinent images including x- rays and CT scans. I also reviewed independently and EKGs and my findings are in the body of my assessment and plan. I ordered the laboratory workup and images myself. I discussed finding with patient's, their families, RN's and consultants involved in the care of the patient. - Time Spent with Patient Total time spent is greater than 50% in coordination of care (as documented) at patient's floor/unit and/or counseling patient: Internal Medicine: Result - Labs CBC & Chem 7: 03/06/19 06:05 03/06/19 06:05 Labs: Short CBC 03/06/19 Range/Units 06:05 WBC 17.1 H (4.3-11.1) K/mcL Hgb 8.9 L (11.5-15.4) g/dL Hct 27.1 L (35.3-44.9) % Plt Count 228 (140-400) K/mcL BMP 03/06/19 06:05 Sodium 124 L Potassium 4.4 Chloride 87 L Carbon Dioxide 27 BUN 32 H Creatinine 4.69 H Glucose 85 Calcium 8.3 L Cardiac Enzymes 03/06/19 Range/Units 13:46 Troponin I 0.04 H* (< 0.04) ng/mL - ABG Interpretation ABG results: ABG ABG pH 7.44 pH Units (7.32-7.45) 03/06/19 11:02 ABG pCO2 42 mmHg (35-45) 03/06/19 11:02 ABG pO2 63 mmHg (85-104) L 03/06/19 11:02 ABG O2 Saturation 93 % (95-98) L 03/06/19 11:02 PT/INR, D-dimer PT 10.1 Seconds (9.4-12.1) 03/03/19 22:46 Consult Discharge Plan - Plan Referrals: NONE,PCP [Primary Care Provider] - (2) Congestive heart failure (CHF) Qualifiers: Heart failure type: unspecified Heart failure chronicity: acute on chronic Qualified Code(s): I50.9 - Heart failure, unspecified (6) Pneumonia Qualifiers: Pneumonia type: due to unspecified organism Lung location: unspecified part of lung Qualified Code(s): J18.9 - Pneumonia, unspecified organism
--- NOTE | 2019-03-06 15:33 | Electrocardiograph Report ---
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
[2019-03-06] MEDS: Piperacillin/Tazobactam 3.375 GM in 0.9 % Sodium Chloride Mini Bag 100 ML IVPB SCH (17:34)
[2019-03-06] MEDS: OLANZapine 5 MG TAB.RAPDIS PO SCH (21:01)
[2019-03-07 04:11] LABS: Hematocrit 30.4 % (35.3-44.9); Hemoglobin 9.5 g/dL (11.5-15.4); Mean Corpuscular HGB Conc 31.3 g/dL (31.6-35.5); Mean Corpuscular Hemoglobin 25.9 pg (28.0-33.3); Mean Corpuscular Volume 82.8 fL (83.0-100.0); Mean Platelet Volume 10.3 fL (9.4-12.4); Platelet Count 221 K/mcL (140-400); Red Blood Count 3.67 M/mcL (3.82-4.97); Red Cell Distribution Width 17.7 % (11.5-14.5); White Blood Count 13.5 K/mcL (4.3-11.1)
[2019-03-07] MEDS: Ipratropium/Albuterol Neb 3 ML IH SCH ×5 (04:14→20:34)
[2019-03-07 04:28] LABS: Calcium 8.2 mg/dL (8.6-10.3); Potassium 3.6 mEq/L (3.5-5.1)
[2019-03-07] MEDS: Piperacillin/Tazobactam 3.375 GM in 0.9 % Sodium Chloride Mini Bag 100 ML IVPB SCH ×2 (05:35→17:21)
[2019-03-07] MEDS: Budesonide/Formoterol 160/4.5 1 PUFF INH IH SCH ×2 (07:28→20:34)
[2019-03-07] MEDS: Isosorbide MONOnitrate (24 HR) 30 MG TAB.ER.24H PO SCH (08:37)
[2019-03-07] MEDS: amLODIPine 5 MG TABLET PO SCH (08:37)
[2019-03-07] MEDS: Aspirin Enteric Coated 81 MG Tablet PO SCH (08:37)
--- NOTE | 2019-03-07 08:45 | Nephrology Progress Note ---
Date of Encounter: 03/07/19 Time of Encounter: 08:30 - Assessment and Plan (1) ESRD (end stage renal disease) on dialysis Current Visit: Yes Status: Chronic Next HD would be planned for Sunday (she is TTS) Recommend changing her DW to 52kg (it was 55kg about 1 month ago but she would developed fluid overload and was admitted, so will lower her DW to help prevent fluid overload). I called in this order to the outpt HD unit to help minimize the odds of readmission. Also she would be a good candidate for PD, which I reviewed with the pt and her spouse the R/B/I/A, and they plan to think about it and will follow up on this as an outpt. Thank you (2) COPD (chronic obstructive pulmonary disease) Current Visit: Yes Status: Chronic As per primary Qualifiers: COPD type: unspecified COPD Qualified Code(s): J44.9 - Chronic obstructive pulmonary disease, unspecified (3) HTN (hypertension) Current Visit: No Status: Chronic Titrate blood pressure medication as needed, but to hold antihypertensive medications on the day of dialysis to help minimize the risk of intradialytic hypotension. Qualifiers: Hypertension type: essential hypertension Qualified Code(s): I10 - Essential (primary) hypertension (4) Anemia Current Visit: No Status: Chronic Goal hemoglobin 10-11 in the setting of ESRD. We will assess for IV iron and/or EPO as needed. Transfusion parameters as per primary team. Qualifiers: Anemia type: iron deficiency Iron deficiency anemia type: unspecified iron deficiency Qualified Code(s): D50.9 - Iron deficiency anemia, unspecified (5) Acute and chronic respiratory failure Current Visit: No Status: Acute Per the primary team. Etiology seems to be volume overload plus or minus congestive heart failure. Qualifiers: Respiratory failure complication: hypoxia Qualified Code(s): J96.21 - Acute and chronic respiratory failure with hypoxia (6) Hyperkalemia Current Visit: Yes Status: Resolved Improved. I recommend she follow a low potassium/renal diet to help prevent future episodes of hyperkalemia (7) Hyponatremia Current Visit: Yes Status: Acute She has fluctuating hyponatremia that improved after dialysis yesterday, but still persists at 130. I recommend she follow a fluid restriction, especially a freewater fluid restriction of less than 1.5 L per day. Subjective Principal diagnosis: difficulty in breathing Interval history: The patient was seen and examined earlier today. She reported feeling about the same, and completed dialysis yesterday. Her spouse was present at the bedside. He asked about her fluid removal rates, and how dialysis is been going in the outpatient setting. We talked about her target fluid removal rates, and I also called the outpatient [facility] dialysis unit Objective - Vital Signs Vital signs: Vital Signs Temp Pulse Resp BP Pulse Ox 03/07/19 08:08 97.7 F 107 18 124/81 98 03/07/19 07:28 16 97 03/07/19 04:31 98 F 80 18 143/86 99 03/07/19 04:15 17 95 03/07/19 00:19 97.6 F 74 19 105/73 97 03/06/19 20:13 20 97 03/06/19 19:51 98.2 F 77 18 111/68 97 03/06/19 17:53 99.0 F 18 127/77 03/06/19 16:18 100.9 F H 85 16 134/76 97 03/06/19 15:26 16 95 03/06/19 12:55 104/66 03/06/19 12:40 96/66 03/06/19 12:25 122/73 03/06/19 12:10 115/77 03/06/19 11:55 138/85 03/06/19 11:40 149/85 03/06/19 11:25 129/91 03/06/19 11:10 132/84 03/06/19 10:55 122/90 03/06/19 10:40 109/83 03/06/19 10:25 109/79 03/06/19 10:10 110/73 03/06/19 09:55 97.9 F 18 99/75 03/06/19 09:27 98.0 F 81 20 112/78 95 Intake and Output 03/06/19 03/07/19 03/07/19 23:59 07:59 15:59 Intake Total 130 / 730 Output Total 3600 / 3600 Balance -3470 / -2870 Intake: IV Fluids 100 / 100 Zosyn 3.375 GM In 0.9 % Sodium 100 / 100 Chloride (Mini-Bag +) 100 ML @ 25 mls/hr IVPB Q12HR [facility] Rx#: [id number] Oral 30 / 30 Output: Urine 0 / 0 Total Dialysis (HD) Output 3600 / 3600 Other: # Bowel Movement Diapers 1 Hemodialysis Net Fluid Removed 3000 (mL) - General Appearance General appearance: Present: cachectic, fatigue, frail EENT: Present: ATNC, PERRL, mucous membranes moist Neck: Present: no JVD, supple Respiratory: Present: no kyphosis, clear Cardiology: Present: no edema, regular rate, regular rhythm, normal S1, normal S2 Dialysis Vascular Access: Venous Catheter Additional Comments: Right sided tunneled hemodialysis catheter without erythema, or exudates at the exit site. Gastrointestinal: Present: normoactive bowel sounds, no tenderness, no guarding Integumentary: Present: no rash, warm and dry Neurologic: Present: no focal deficit, no asterixis, alert and oriented x3 Musculoskeletal: Present: no deformities, no erythema, no cyanosis Psychiatric: Present: mood/affect appropriate (But anxious appearing), cooperative - Lab 03/07/19 03:12 03/07/19 03:12 Most recent lab results 03/07/19 03:12 Calcium 8.2 L Consult Discharge Plan - Plan Referrals: NONE,PCP [Primary Care Provider] -
[2019-03-07] MEDS: Azithromycin 500 MG in D5% in Water 250 ML IVPB SCH (08:49)
[2019-03-07] MEDS: Azithromycin 250 MG TABLET PO SCH (08:50)
[2019-03-07] MEDS: Sucralfate 1 GM TABLET PO SCH ×4 (08:50→20:27)
[2019-03-07] MEDS ORDERED: predniSONE 20 MG TABLET PO SCH (09:00)
--- NOTE | 2019-03-07 13:30 | Palliative Progress Note ---
Date of Encounter: 03/07/19 Time of Encounter: 09:30 - Assessment and plan (1) Goals of care, counseling/discussion Current Visit: Yes Status: Acute Assessment and plan: 30 minutes meeting today with patient and Ze. Talked about pt's current medical condition, the frequent readmissions and her declining worsening health and functional status. Pt demonstrated understanding, and stated she would rather be home. Discussed hospice philosophy and implications. Ze is struggling with the idea of discontinuing HD, and would like pt to make the final decision. Pt however not willing to decide. Ultimately, Ze would like to continue current level of care, as long as pt is able to recover. Patient and family are not ready yet for withdrawal of life prolonging measures, but are now aware of the available options once ready. No further palliative care intervention at this point, will sign off. Thank you for the opportunity to participate in the care of this patient. (2) Nausea Current Visit: No Status: Acute Assessment and plan: Patient appetite remains poor, but she denies nausea and vomiting. continue protonix. (3) Acute on chronic respiratory failure with hypoxia Current Visit: Yes Status: Resolved Assessment and plan: From fluid overload and COPD. Management per primary team. (4) ESRD (end stage renal disease) on dialysis Current Visit: Yes Status: Chronic Assessment and plan: HD TTS (5) Altered mental status Current Visit: Yes Status: Acute Assessment and plan: improving. Qualifiers: Qualified Code(s): R41.82 - Altered mental status, unspecified (6) Palliative care encounter Current Visit: Yes Status: Acute - Time Spent With Patient Total time spent is greater than 50% in coordination of care (as documented) at patient's floor/unit and/or counseling patient: Greater than 35 minutes - Subjective Interval history: Patient today was AAOx3, able to recall the events of this morning, answering questions appropriately. She endorsed no symptoms. - Constitutional Vitals: Abnormal lab results WBC 13.5 K/mcL (4.3-11.1) H 03/07/19 03:12 RBC 3.67 M/mcL (3.82-4.97) L 03/07/19 03:12 Hgb 9.5 g/dL (11.5-15.4) L 03/07/19 03:12 Hct 30.4 % (35.3-44.9) L 03/07/19 03:12 MCV 82.8 fL (83.0-100.0) L 03/07/19 03:12 MCH 25.9 pg (28.0-33.3) L 03/07/19 03:12 MCHC 31.3 g/dL (31.6-35.5) L 03/07/19 03:12 RDW 17.7 % (11.5-14.5) H 03/07/19 03:12 MPV 9.2 fL (9.4-12.4) L 03/04/19 05:17 Neutrophils # 10.4 K/mcL (1.6-8.9) H 03/04/19 05:17 Lymphocytes # 5.6 K/mcL (0.6-4.6) H 03/03/19 22:46 Eosinophils # 0.7 K/mcL (0.0-0.6) H 03/03/19 22:46 ABG pO2 63 mmHg (85-104) L 03/06/19 11:02 ABG HCO3 29 mEq/L (21-27) H 03/06/19 11:02 ABG Total CO2 30 mEq/L (20-26) H 03/06/19 11:02 ABG O2 Saturation 93 % (95-98) L 03/06/19 11:02 ABG Base Excess 4 mEq/L (-2 to 3) H 03/06/19 11:02 Sodium 130 mEq/L (136-145) L 03/07/19 03:12 Potassium 5.9 mEq/L (3.5-5.1) H 03/04/19 05:17 Chloride 95 mEq/L (98-107) L 03/07/19 03:12 Carbon Dioxide 20 mEq/L (23-29) L 03/04/19 05:17 BUN 32 mg/dL (8-23) H 03/06/19 06:05 Creatinine 3.27 mg/dL (0.60-1.20) H 03/07/19 03:12 Est GFR ( Amer) 17 (> 60) L 03/07/19 03:12 Est GFR (Non-Af Amer) 14 (> 60) L 03/07/19 03:12 BUN/Creatinine Ratio 5 (6-26) L 03/05/19 05:02 Glucose 127 mg/dL (70-105) H 03/05/19 05:02 POC Glucose 109 mg/dL (70-99) H 03/04/19 11:47 Calculated Osmolality 271 (280-300) L 03/07/19 03:12 Calcium 8.2 mg/dL (8.6-10.3) L 03/07/19 03:12 Magnesium 1.5 mg/dL (1.6-2.6) L 03/04/19 05:17 AST 11 Units/L (13-39) L 03/04/19 05:17 ALT 3 Units/L (7-52) L 03/04/19 05:17 Troponin I 0.04 ng/mL (< 0.04) H* 03/06/19 13:46 Serum Total Protein 6.1 g/dL (6.4-8.9) L 03/04/19 05:17 Procalcitonin 0.91 ng/mL (0.00-0.15) H 03/07/19 03:12 Hep Bs Antibody < 3.10 mIU/mL (10.00-) L 03/04/19 09:34 Exam: General appearance: Present: chronically ill, frail EENT: Present: ATNC, hearing intact, vision intact Neck: Present: supple Respiratory: Present: clear Cardiology: Present: no edema, normal S1, normal S2 Dialysis Vascular Access: Venous Catheter (DRSG C/D/I) Gastrointestinal: Present: normoactive bowel sounds, no tenderness, no guarding Integumentary: Present: no rash, warm and dry Neurologic: Present: AAO x3, no focal neurological defects. Musculoskeletal: Present: no deformities, no erythema Palliative Quality Palliative Quality: Screen for Code Status: Yes, Screen for Goals of Care: Yes, Screen for Pain: Yes, Screen for Nausea/Vomitting: Yes Code Status: 03/04/19 03:44 Resuscitation Status: Active [RES] Routine Comment: Resuscitation Status: [id number] - Labs CBC & Chem 7: 03/07/19 03:12 03/07/19 03:12 Labs: Laboratory Results - last 24 hr 03/06/19 03/06/19 03/07/19 13:46 16:56 03:12 WBC 13.5 H RBC 3.67 L Hgb 9.5 L Hct 30.4 L MCV 82.8 L MCH 25.9 L MCHC 31.3 L RDW 17.7 H Plt Count 221 MPV 10.3 Sodium Potassium Chloride Carbon Dioxide BUN Creatinine Est GFR ( Amer) Est GFR (Non-Af Amer) BUN/Creatinine Ratio Glucose Calculated Osmolality Calcium Troponin I 0.04 H* 0.03 Procalcitonin 03/07/19 03/07/19 03:12 03:12 WBC RBC Hgb Hct MCV MCH MCHC RDW Plt Count MPV Sodium 130 L Potassium 3.6 Chloride 95 L Carbon Dioxide 27 BUN 19 Creatinine 3.27 H Est GFR ( Amer) 17 L Est GFR (Non-Af Amer) 14 L BUN/Creatinine Ratio 6 Glucose 74 Calculated Osmolality 271 L Calcium 8.2 L Troponin I Procalcitonin 0.91 H - ABG Interpretation ABG results: ABG ABG pH 7.44 pH Units (7.32-7.45) 03/06/19 11:02 ABG pCO2 42 mmHg (35-45) 03/06/19 11:02 ABG pO2 63 mmHg (85-104) L 03/06/19 11:02 ABG O2 Saturation 93 % (95-98) L 03/06/19 11:02 PT/INR, D-dimer PT 10.1 Seconds (9.4-12.1) 03/03/19 22:46 Palliative Scale - Palliative Performance Scale How ambulatory is this patient?: Mainly in bed What is patient's level of activity and evidence of disease?: Unable to do any work, Extensive disease How much self-care assistance does patient require?: Considerable assistance required How much oral intake does the patient have?: Minimal to sips What is this patient's level of consciousness?: Full Palliative Performance Score: 30 % Consult Discharge Plan - Plan Referrals: NONE,PCP [Primary Care Provider] -
--- NOTE | 2019-03-07 14:41 | Internal Med Progress Note ---
Hospitalist Progress Note - Encounter Date of Encounter: 03/07/19 Time of Encounter: 09:00 - Subjective Interval History: Patient was seen this morning. She looks more awake, alert and oriented. She denied nausea or vomiting and she is tolerating her oral intake. She had no chest pain or abdominal pain this morning. She noted that her breathing is i mproving. - Exam Vitals: Temp Pulse Resp BP Pulse Ox 98.1 F 82 20 113/68 96 03/07/19 12:03/07/19 12:03/07/19 12:03/07/19 12:03/07/19 12:09 Exam: General: Patient is alert, and oriented 3 Head: Atraumatic, normal inspection, normocephalic. Eye: EOMI, PERRLA, no scleral icterus noted. ENT: Mucous membranes moist. No odontogenic infection noted. Neck: Normal inspection, no meningismus. Right TDC Respiratory: Diminished lung sounds bilaterally Cardiovascular: Regular rate and regular rhythm,. GI: Soft, nondistended, normal bowel sounds. Extremities:No joint swelling, pedal edema, or tenderness noted. Psychiatric: normal affect, normal mood. Skin: Dry, intact, warm. Normal color. No rashes. - Assessment and Plan (1) COPD exacerbation Current Visit: Yes Status: Acute (2) Congestive heart failure (CHF) Current Visit: Yes Status: Acute (3) Acute on chronic respiratory failure with hypoxia Current Visit: Yes Status: Resolved (4) ESRD (end stage renal disease) on dialysis Current Visit: Yes Status: Chronic (5) Hyperkalemia Current Visit: Yes Status: Resolved (6) Pneumonia Current Visit: Yes Status: Acute (7) DVT prophylaxis Current Visit: No Status: Chronic - Summary of Assessment and Plan Summary of Assessment and Plan: 68 yo female with ESRD TTS, HFpEF 35%, CAD s/p PCI on 10/15, COPD on 2L o2 presented to the hospital with shortness of breath, cough and sputum production. She had multiple admissions in the past few months for the same presentation. CTA was done and was negative for PE, Current features of volume overload including bilateral pleural effusion and moderate interstitial pulmonary edema. As per the , patient blood pressure was not controlled yesterday and it was 180/120 before presentation. Her symptoms are managed as following: Acute on chronic hypoxic respiratory failure: - From volume overload, COPD exacerbation and less likely pneumonia. - For COPD: switch Solu-Medrol to prednisone , breathing treatment, azithromycin and home dose inhalers. - HFrEF: ?hypertensive emergency, One dose of lasix was given, today for HD. Patient is on home O2 requirements at 2L. EKG with no ischemic changes, troponin is negative 2 initially. - Low suspicion for pneumonia, however the patient developed low-grade temperature yesterday along with high leukocytosis and progressive thinning for which she was started back on Zosyn day 09/05. Continue azithromycin day 11/01, MRSA swab was negative and VANc D/C. She is afebrile and HDS today. CBC tomorrow. Chest pain: resolved - New event, today. EKG: Sinus Rhythm with no ischemic changes - Troponin peaked to 0.04 likely from her underlying CKD. She was asymptomatic this TODAY. Leukocytosis: Improved - most likely due to steroids. - Blood cultures are negative, check CBC tomorrow Acute metabolic Encephalopathy: Improving - Likely iatrogenic from phenegren and ativan and steroids. Phenergan and Ativan is on hold. Nausea and vomiting: Resolved -Change diet to a clear liquid diet and advance as tolerated -Increase Protonix to 40 mg BID and continue with Carafate ESRD: - Today for HD. Nephro is following. HTN: - Controlled, on norvasc 5 mg at home, losartan and atenolol. - We will stop atenolol and start the patient on carvedilol 3.125 and titrate up as tolerated. Hypothyroidism: - Home dose levothyroxine. CAD status post stent: - Continue aspirin and Plavix, and beta blockers. Discussed with the patient's critical illness and her multiple hospitalizations in the past few months. We will keep her CODE STATUS is DNR comfort care, Palliative team was involved for hospice options however is not willing to withdraw HD for hospice. DVT prophylaxis: sc heparin - Time Spent with Patient Total time spent is greater than 50% in coordination of care (as documented) at patient's floor/unit and/or counseling patient: Plan of Care Discussed with: patient Internal Medicine: Result - Labs CBC & Chem 7: 03/07/19 03:12 03/07/19 03:12 Labs: Short CBC 03/07/19 Range/Units 03:12 WBC 13.5 H (4.3-11.1) K/mcL Hgb 9.5 L (11.5-15.4) g/dL Hct 30.4 L (35.3-44.9) % Plt Count 221 (140-400) K/mcL BMP 03/07/19 03:12 Sodium 130 L Potassium 3.6 Chloride 95 L Carbon Dioxide 27 BUN 19 Creatinine 3.27 H Glucose 74 Calcium 8.2 L Cardiac Enzymes 03/06/19 Range/Units 16:56 Troponin I 0.03 (< 0.04) ng/mL - ABG Interpretation ABG results: ABG ABG pH 7.44 pH Units (7.32-7.45) 03/06/19 11:02 ABG pCO2 42 mmHg (35-45) 03/06/19 11:02 ABG pO2 63 mmHg (85-104) L 03/06/19 11:02 ABG O2 Saturation 93 % (95-98) L 03/06/19 11:02 PT/INR, D-dimer PT 10.1 Seconds (9.4-12.1) 03/03/19 22:46 Consult Discharge Plan - Plan Referrals: NONE,PCP [Primary Care Provider] - (2) Congestive heart failure (CHF) Qualifiers: Heart failure type: unspecified Heart failure chronicity: acute on chronic Qualified Code(s): I50.9 - Heart failure, unspecified (6) Pneumonia Qualifiers: Pneumonia type: due to unspecified organism Lung location: unspecified part of lung Qualified Code(s): J18.9 - Pneumonia, unspecified organism
[2019-03-07] MEDS: OLANZapine 5 MG TAB.RAPDIS PO SCH (20:26)
[2019-03-08] MEDS: Ipratropium/Albuterol Neb 3 ML IH SCH ×3 (00:15→07:30)
[2019-03-08] MEDS ORDERED: Melatonin 3 MG TABLET PO ONE (01:04)
[2019-03-08] MEDS: Piperacillin/Tazobactam 3.375 GM in 0.9 % Sodium Chloride Mini Bag 100 ML IVPB SCH ×2 (05:17→18:10)
[2019-03-08 05:40] LABS: Basophils % 0.1 %; Eosinophils % 0.4 %; Hematocrit 26.6 % (35.3-44.9); Hemoglobin 8.4 g/dL (11.5-15.4); Immature Granulocytes % 0.6 % (0-4); Lymphocytes # 1.3 K/mcL (0.6-4.6); Lymphocytes % 11.3 %; Mean Corpuscular HGB Conc 31.6 g/dL (31.6-35.5); Mean Corpuscular Hemoglobin 25.9 pg (28.0-33.3); Mean Corpuscular Volume 82.1 fL (83.0-100.0); Monocytes # 0.8 K/mcL (0.0-1.3); Monocytes % 6.8 %; Neutrophils # 9.2 K/mcL (1.6-8.9); Platelet Count 208 K/mcL (140-400); Red Blood Count 3.24 M/mcL (3.82-4.97); Red Cell Distribution Width 17.2 % (11.5-14.5); Segmented Neutrophils % 80.8 %; White Blood Count 11.4 K/mcL (4.3-11.1)
[2019-03-08 05:57] LABS: Calcium 8.4 mg/dL (8.6-10.3); Potassium 3.9 mEq/L (3.5-5.1)
[2019-03-08] MEDS: Budesonide/Formoterol 160/4.5 1 PUFF INH IH SCH ×2 (07:30→20:05)
[2019-03-08] MEDS ORDERED: 0.9 % Sodium Chloride 250 ML IVC PRN (07:46)
[2019-03-08] MEDS ORDERED: *HR* Heparin 10,000 UNIT/10 ML VIAL IV PRN (07:46)
[2019-03-08] MEDS ORDERED: 0.9 % Sodium Chloride 1,000 ML PRIME SCH (08:00)
--- NOTE | 2019-03-08 10:33 | Internal Med Progress Note ---
Hospitalist Progress Note - Encounter Date of Encounter: 03/08/19 Time of Encounter: 10:00 - Subjective Interval History: Patient was seen this morning. She was confused and agitated overnight. She looked awake, alert but not oriented this morning. - Exam Vitals: Temp Pulse Resp BP Pulse Ox 98.3 F 92 16 133/79 99 03/08/19 03:47 03/08/19 03:47 03/08/19 03:47 03/08/19 03:47 03/08/19 03:47 Exam: General: Patient is alert, but Oriented X1 Head: Atraumatic, normal inspection, normocephalic. Eye: EOMI, PERRLA, no scleral icterus noted. ENT: Mucous membranes moist. No odontogenic infection noted. Neck: Normal inspection, no meningismus. Right TDC Respiratory: Diminished lung sounds bilaterally Cardiovascular: Regular rate and regular rhythm,. GI: Soft, nondistended, normal bowel sounds. Extremities:No joint swelling, pedal edema, or tenderness noted. Psychiatric: normal affect, normal mood. Skin: Dry, intact, warm. Normal color. No rashes. - Assessment and Plan (1) COPD exacerbation Current Visit: Yes Status: Acute (2) Congestive heart failure (CHF) Current Visit: Yes Status: Acute (3) Acute on chronic respiratory failure with hypoxia Current Visit: Yes Status: Resolved (4) ESRD (end stage renal disease) on dialysis Current Visit: Yes Status: Chronic (5) Hyperkalemia Current Visit: Yes Status: Resolved (6) Pneumonia Current Visit: Yes Status: Acute (7) DVT prophylaxis Current Visit: No Status: Chronic - Summary of Assessment and Plan Summary of Assessment and Plan: 68 yo female with ESRD TTS, HFpEF 35%, CAD s/p PCI on 10/15, COPD on 2L o2 presented to the hospital with shortness of breath, cough and sputum production. She had multiple admissions in the past few months for the same presentation. CTA was done and was negative for PE, Current features of volume overload including bilateral pleural effusion and moderate interstitial pulmonary edema. As per the , patient blood pressure was not controlled yesterday and it was 180/120 before presentation. Her symptoms are managed as following: Acute Encephalopathy: worsening - Likely iatrogenic from phenegren and ativan and steroids vs delirium. Phenergan and Ativan are on hold. - We will increase her Zyprexa dose to 5 mg at bedtime, spoke to the to frequently reorient her. Acute on chronic hypoxic respiratory failure: resolved - From volume overload, COPD exacerbation and less likely pneumonia. - For COPD: finished prednisone and Azithromax. Continue home dose inhalers. - HFrEF: ?hypertensive emergency. today for HD. Patient is on home O2 requirements at 2L. - Low suspicion for pneumonia, however the patient developed low-grade temperature on 03/06 along with high leukocytosis and high procalictonin for which she was started back on Zosyn day 10/03. Finished azithromycin day 12/01, MRSA swab was negative and VANc D/C. She is afebrile and HDS today. Chest pain: resolved - EKG: Sinus Rhythm with no ischemic changes. Troponin peaked to 0.04 likely from her underlying CKD. She was asymptomatic this TODAY. Leukocytosis: Improved - most likely due to steroids. - Blood cultures are negative, check CBC tomorrow Nausea and vomiting: Resolved -Change diet to a clear liquid diet and advance as tolerated -Increase Protonix to 40 mg BID and continue with Carafate ESRD: Today for HD. Nephro is following. HTN: Controlled, on norvasc 5 mg at home, losartan and atenolol. atenolol stopped and carvedilol 3.125 started with good control of her Bp. Hypothyroidism: Home dose levothyroxine. CAD status post stent: Continue aspirin and Plavix, and beta blockers. Discussed with the patient's critical illness and her multiple hospitalizations in the past few months. We will keep her CODE STATUS is DNR comfort care, Palliative team was involved for hospice options however is not willing to withdraw HD for hospice. DVT prophylaxis: sc heparin - Time Spent with Patient Total time spent is greater than 50% in coordination of care (as documented) at patient's floor/unit and/or counseling patient: Plan of Care Discussed with: family Internal Medicine: Result - Labs CBC & Chem 7: 03/08/19 05:00 03/08/19 05:00 Labs: Short CBC 03/08/19 Range/Units 05:00 WBC 11.4 H (4.3-11.1) K/mcL Hgb 8.4 L (11.5-15.4) g/dL Hct 26.6 L (35.3-44.9) % Plt Count 208 (140-400) K/mcL Neutrophils # 9.2 H (1.6-8.9) K/mcL BMP 03/08/19 05:00 Sodium 130 L Potassium 3.9 Chloride 93 L Carbon Dioxide 25 BUN 35 H Creatinine 4.75 H Glucose 80 Calcium 8.4 L - ABG Interpretation ABG results: ABG ABG pH 7.44 pH Units (7.32-7.45) 03/06/19 11:02 ABG pCO2 42 mmHg (35-45) 03/06/19 11:02 ABG pO2 63 mmHg (85-104) L 03/06/19 11:02 ABG O2 Saturation 93 % (95-98) L 03/06/19 11:02 PT/INR, D-dimer PT 10.1 Seconds (9.4-12.1) 03/03/19 22:46 Consult Discharge Plan - Plan Referrals: NONE,PCP [Primary Care Provider] - (2) Congestive heart failure (CHF) Qualifiers: Heart failure type: unspecified Heart failure chronicity: acute on chronic Qualified Code(s): I50.9 - Heart failure, unspecified (6) Pneumonia Qualifiers: Pneumonia type: due to unspecified organism Lung location: unspecified part of lung Qualified Code(s): J18.9 - Pneumonia, unspecified organism
[2019-03-08] MEDS ORDERED: Ipratropium/Albuterol Neb 3 ML IH PRN (10:53)
--- NOTE | 2019-03-08 11:15 | Nephrology Progress Note ---
Date of Encounter: 03/08/19 Time of Encounter: 09:10 - Assessment and Plan (1) ESRD (end stage renal disease) on dialysis Current Visit: Yes Status: Chronic ESRD and will be due for HD today. End-stage renal disease on thrice weekly hemodialysis: I reviewed the patient's labs, vital signs, progress notes, imaging and medication lists, which required complex evaluation and management and medical decision making to compose the patient's dialysis orders. For patients with end-stage renal disease, as always, I recommend following strict I's and O's, daily weights, renal diet, avoidance of nephrotoxic agents, renal dosing. (2) COPD (chronic obstructive pulmonary disease) Current Visit: Yes Status: Chronic Qualifiers: COPD type: unspecified COPD Qualified Code(s): J44.9 - Chronic obstructive pulmonary disease, unspecified (3) HTN (hypertension) Current Visit: No Status: Chronic Qualifiers: Hypertension type: essential hypertension Qualified Code(s): I10 - Essential (primary) hypertension (4) Anemia Current Visit: No Status: Chronic Qualifiers: Anemia type: iron deficiency Iron deficiency anemia type: unspecified iron deficiency Qualified Code(s): D50.9 - Iron deficiency anemia, unspecified (5) Acute and chronic respiratory failure Current Visit: No Status: Acute Qualifiers: Respiratory failure complication: hypoxia Qualified Code(s): J96.21 - Acute and chronic respiratory failure with hypoxia (6) Hyperkalemia Current Visit: Yes Status: Resolved (7) Hyponatremia Current Visit: Yes Status: Acute Subjective Principal diagnosis: difficulty in breathing Interval history: The patient was seen and examined earlier today on 03/08/2019. She affirmed feeling anxious, which she described as chronic, but she did not affirm active chest pain, nausea, vomiting, or shortness of breath. Objective - Vital Signs Vital signs: Vital Signs Temp Pulse Resp BP Pulse Ox 03/08/19 03:47 98.3 F 92 16 133/79 99 03/07/19 23:41 98 F 91 16 123/66 96 03/07/19 21:10 97.7 F 87 16 147/76 95 03/07/19 20:34 17 96 03/07/19 19:22 98.4 F 66 16 124/57 99 03/07/19 15:28 16 98 03/07/19 15:10 98.1 F 81 18 119/72 99 03/07/19 12:09 98.1 F 82 20 113/68 96 03/07/19 11:50 16 95 Intake and Output 03/07/19 03/08/19 03/08/19 23:59 07:59 15:59 Intake Total 210 / 430 Balance 210 / 430 Intake: IV Fluids 100 / 200 Zosyn 3.375 GM In 0.9 % Sodium 100 / 200 Chloride (Mini-Bag +) 100 ML @ 25 mls/hr IVPB Q12HR [facility] Rx#: [id number] Oral 110 / 230 Other: Meal Dinner Percent of Meal Consumed 20% Weight 55.1 kg Blood Glucose* 134 - General Appearance General appearance: Present: well-developed, cachectic EENT: Present: ATNC, PERRL, mucous membranes moist Neck: Present: no JVD, supple Respiratory: Present: no kyphosis, wheezing Cardiology: Present: no edema, regular rate, regular rhythm, normal S1, normal S2 Dialysis Vascular Access: Venous Catheter (Permacath noted in use during tammi lysis) Gastrointestinal: Present: normoactive bowel sounds, no tenderness, no guarding Integumentary: Present: no rash, warm and dry Neurologic: Present: alert and oriented x3 Musculoskeletal: Present: no cyanosis, no clubbing Psychiatric: Present: mood/affect appropriate, cooperative Additional Comments: anxious appearing - Lab 03/12/19 01:27 03/12/19 01:27 Most recent lab results 03/08/19 05:00 Calcium 8.4 L Consult Discharge Plan - Plan Referrals: NONE,PCP [Primary Care Provider] -
[2019-03-08] MEDS: Sucralfate 1 GM TABLET PO SCH ×4 (12:30→19:43)
[2019-03-08] MEDS ORDERED: *HR* LORazepam 0.5 MG TABLET PO ONE (13:39)
[2019-03-08] MEDS: amLODIPine 5 MG TABLET PO SCH (13:55)
[2019-03-08] MEDS: Isosorbide MONOnitrate (24 HR) 30 MG TAB.ER.24H PO SCH (13:57)
[2019-03-08] MEDS: Aspirin Enteric Coated 81 MG Tablet PO SCH (13:58)
[2019-03-08] MEDS: Azithromycin 250 MG TABLET PO SCH (14:06)
[2019-03-08] MEDS ORDERED: *HR* LORazepam 0.5 MG TABLET PO PRN (18:01)
[2019-03-08] MEDS: OLANZapine 5 MG TAB.RAPDIS PO SCH (19:42)
[2019-03-08] MEDS: traZODone 50 MG TABLET PO SCH ×2 (19:43→19:53)
[2019-03-08] MEDS ORDERED: Ondansetron 4 MG/2 ML VIAL IVP ONE (21:37)
[2019-03-09] MEDS: Piperacillin/Tazobactam 3.375 GM in 0.9 % Sodium Chloride Mini Bag 100 ML IVPB SCH ×2 (05:52→18:02)
[2019-03-09 06:32] LABS: Hematocrit 32.1 % (35.3-44.9); Mean Corpuscular HGB Conc 31.5 g/dL (31.6-35.5); Mean Corpuscular Hemoglobin 25.8 pg (28.0-33.3); Mean Corpuscular Volume 82.1 fL (83.0-100.0); Platelet Count 278 K/mcL (140-400); Red Blood Count 3.91 M/mcL (3.82-4.97); Red Cell Distribution Width 17.3 % (11.5-14.5); White Blood Count 10.8 K/mcL (4.3-11.1)
[2019-03-09 06:33] LABS: Hemoglobin 10.1 g/dL (11.5-15.4)
[2019-03-09 06:54] LABS: Potassium 3.7 mEq/L (3.5-5.1)
[2019-03-09] MEDS: Budesonide/Formoterol 160/4.5 1 PUFF INH IH SCH ×2 (07:41→19:56)
[2019-03-09] MEDS: Sucralfate 1 GM TABLET PO SCH ×4 (07:44→21:24)
[2019-03-09] MEDS: Isosorbide MONOnitrate (24 HR) 30 MG TAB.ER.24H PO SCH (08:07)
[2019-03-09] MEDS: amLODIPine 5 MG TABLET PO SCH (08:07)
[2019-03-09] MEDS: Aspirin Enteric Coated 81 MG Tablet PO SCH (08:07)
--- NOTE | 2019-03-09 08:23 | Nephrology Progress Note ---
Date of Encounter: 03/09/19 Time of Encounter: 08:00 - Assessment and Plan (1) ESRD (end stage renal disease) on dialysis Current Visit: Yes Status: Chronic ESRD TTS and next HD would be due for Sunday. I reviewed this complex pt's labs, vitals, med list, progress notes and past imaging, which required complex E/M plus MDM: biochemically she is stable and okay to not need extra HD this Sunday. Thank you. (2) COPD (chronic obstructive pulmonary disease) Current Visit: Yes Status: Chronic Qualifiers: COPD type: unspecified COPD Qualified Code(s): J44.9 - Chronic obstructive pulmonary disease, unspecified (3) HTN (hypertension) Current Visit: No Status: Chronic Qualifiers: Hypertension type: essential hypertension Qualified Code(s): I10 - Essential (primary) hypertension (4) Anemia Current Visit: No Status: Chronic Qualifiers: Anemia type: iron deficiency Iron deficiency anemia type: unspecified iron deficiency Qualified Code(s): D50.9 - Iron deficiency anemia, unspecified (5) Acute and chronic respiratory failure Current Visit: No Status: Acute Qualifiers: Respiratory failure complication: hypoxia Qualified Code(s): J96.21 - Acute and chronic respiratory failure with hypoxia (6) Hyperkalemia Current Visit: Yes Status: Resolved (7) Hyponatremia Current Visit: Yes Status: Acute Subjective Principal diagnosis: difficulty in breathing Interval history: The patient was seen and examined on Sunday03/09/19, and she reported feeling relatively well and did not affirm active uremic complaints this day. Objective - Vital Signs Vital signs: Vital Signs Temp Pulse Resp BP Pulse Ox 03/09/19 08:01 98.1 F 104 18 107/68 99 03/09/19 07:45 16 99 03/09/19 04:49 98.1 F 112 18 121/73 100 03/08/19 21:36 98.3 F 78 20 111/68 99 03/08/19 20:05 17 98 03/08/19 16:25 98.2 F 92 16 149/77 90 03/08/19 12:42 97.9 F 18 137/89 03/08/19 12:25 104/71 03/08/19 12:10 113/79 03/08/19 11:55 123/86 03/08/19 11:40 146/90 03/08/19 11:25 170/86 03/08/19 11:10 154/89 03/08/19 10:55 163/93 03/08/19 10:40 145/94 03/08/19 10:25 163/79 03/08/19 10:10 144/90 03/08/19 09:55 156/87 03/08/19 09:40 158/84 03/08/19 09:25 147/89 03/08/19 09:10 97.8 F 18 157/89 Intake and Output 03/08/19 03/09/19 03/09/19 23:59 07:59 15:59 Intake Total 100 / 860 Balance 100 / -2840 Intake: IV Fluids 100 / 200 Zosyn 3.375 GM In 0.9 % Sodium 100 / 200 Chloride (Mini-Bag +) 100 ML @ 25 mls/hr IVPB Q12HR [facility] Rx#: [id number] Other: Weight 55.1 kg Patient Weight 03/09/19 23:59 Weight 55.1 kg - General Appearance Exam: General appearance: Present: well-developed, cachectic EENT: Present: ATNC, PERRL, mucous membranes moist Neck: Present: no JVD, supple Respiratory: Present: no kyphosis, wheezing Cardiology: Present: no edema, regular rate, regular rhythm, normal S1, normal S2 Dialysis Vascular Access: Venous Catheter (Right sided Permacath) Gastrointestinal: Present: normoactive bowel sounds, no tenderness, no guarding Integumentary: Present: no rash, warm and dry Neurologic: Present: alert and oriented x3 Musculoskeletal: Present: no cyanosis, no clubbing Psychiatric: Present: mood/affect appropriate, cooperative Additional Comments: anxious appearing - Lab 03/12/19 01:27 03/12/19 01:27 Most recent lab results 03/09/19 05:00 Calcium 9.0 Consult Discharge Plan - Plan Referrals: NONE,PCP [Primary Care Provider] -
--- NOTE | 2019-03-09 09:58 | Internal Med Progress Note ---
Hospitalist Progress Note - Encounter Date of Encounter: 03/09/19 Time of Encounter: 10:00 - Subjective Interval History: Patient was seen this morning with her . She looks more alert and oriented compared to yesterday. She slept 6 hours overnight. She had some hallucination during my encounter however she answered most of my questions correct. She denied chest pain or shortness of breath. - Exam Vitals: Temp Pulse Resp BP Pulse Ox 98.1 F 104 18 107/68 99 03/09/19 08:01 03/09/19 08:01 03/09/19 08:01 03/09/19 08:01 03/09/19 08:01 Exam: General: Patient is alert, but Oriented X3 Head: Atraumatic, normal inspection, normocephalic. Eye: EOMI, PERRLA, no scleral icterus noted. ENT: Mucous membranes moist. Neck: Normal inspection, no meningismus. Right TDC Respiratory: Diminished lung sounds bilaterally Cardiovascular: Regular rate and regular rhythm,. GI: Soft, nondistended, normal bowel sounds. Extremities:No joint swelling, pedal edema, or tenderness noted. Psychiatric: normal affect, normal mood. Skin: Dry, intact, warm. Normal color. No rashes. - Assessment and Plan (1) COPD exacerbation Current Visit: Yes Status: Resolved (2) Congestive heart failure (CHF) Current Visit: Yes Status: Resolved (3) Acute on chronic respiratory failure with hypoxia Current Visit: Yes Status: Resolved (4) ESRD (end stage renal disease) on dialysis Current Visit: Yes Status: Chronic (5) Hyperkalemia Current Visit: Yes Status: Resolved (6) Pneumonia Current Visit: Yes Status: Acute (7) DVT prophylaxis Current Visit: No Status: Chronic - Summary of Assessment and Plan Summary of Assessment and Plan: 68 yo female with ESRD TTS, HFpEF 35%, CAD s/p PCI on 10/15, COPD on 2L o2 presented to the hospital with shortness of breath, cough and sputum production. She had multiple admissions in the past few months for the same presentation. CTA was done and was negative for PE, Current features of volume overload including bilateral pleural effusion and moderate interstitial pulmonary edema. As per the , patient blood pressure was not controlled yesterday and it was 180/120 before presentation. Her symptoms are managed as following: Acute Encephalopathy: improving - Most likely delirium from sleep deprivation. Started on Trazadone 50mg HS at bedtime and patient slept well overnight with overall improvement in her mental status. - Phenergan and Ativan are on hold. Keep Zyprexa dose to 5 mg at bedtime, spoke to the to frequently reorient her. Acute on chronic hypoxic respiratory failure: resolved - From volume overload, COPD exacerbation and less likely pneumonia. - For COPD: finished prednisone and Azithromax. Continue home dose inhalers. - HFrEF: ?hypertensive emergency. Patient is on home O2 requirements at 2L. - Low suspicion for pneumonia, however the patient developed low-grade temperature on 03/06 along with high leukocytosis and high procalictonin for which she was started back on Zosyn day 11/03. Finished azithromycin day 12/01, MRSA swab was negative and VANc D/C. She is afebrile and HDS today. Chest pain: resolved - EKG: Sinus Rhythm with no ischemic changes. Troponin peaked to 0.04 likely from her underlying CKD. She was asymptomatic this TODAY. Leukocytosis: resolved. most likely due to steroids. Nausea and vomiting: Resolved.Continue Protonix 40 mg BID and continue with Carafate ESRD: TTS. Nephro is following. HTN: Controlled, on norvasc 5 mg at home, losartan and atenolol. atenolol stopped and carvedilol 3.125 started with good control of her Bp. Hypothyroidism: Home dose levothyroxine. CAD status post stent: Continue aspirin and Plavix, and beta blockers. Discussed with the patient's critical illness and her multiple hospitalizations in the past few months. We will keep her CODE STATUS is DNR comfort care, Palliative team was involved for hospice options however is not willing to withdraw HD for hospice. DVT prophylaxis: sc heparin High risk for complication. - Time Spent with Patient Total time spent is greater than 50% in coordination of care (as documented) at patient's floor/unit and/or counseling patient: Plan of Care Discussed with: family Internal Medicine: Result - Labs CBC & Chem 7: 03/09/19 05:00 03/09/19 05:00 Labs: Short CBC 03/09/19 Range/Units 05:00 WBC 10.8 (4.3-11.1) K/mcL Hgb 10.1 L D (11.5-15.4) g/dL Hct 32.1 L (35.3-44.9) % Plt Count 278 (140-400) K/mcL BMP 03/09/19 05:00 Sodium 133 L Potassium 3.7 Chloride 94 L Carbon Dioxide 25 BUN 18 Creatinine 3.13 H Glucose 60 L Calcium 9.0 - ABG Interpretation ABG results: ABG ABG pH 7.44 pH Units (7.32-7.45) 03/06/19 11:02 ABG pCO2 42 mmHg (35-45) 03/06/19 11:02 ABG pO2 63 mmHg (85-104) L 03/06/19 11:02 ABG O2 Saturation 93 % (95-98) L 03/06/19 11:02 PT/INR, D-dimer PT 10.1 Seconds (9.4-12.1) 03/03/19 22:46 Consult Discharge Plan - Plan Referrals: NONE,PCP [Primary Care Provider] - (2) Congestive heart failure (CHF) Qualifiers: Heart failure type: unspecified Heart failure chronicity: acute on chronic Qualified Code(s): I50.9 - Heart failure, unspecified (6) Pneumonia Qualifiers: Pneumonia type: due to unspecified organism Lung location: unspecified part of lung Qualified Code(s): J18.9 - Pneumonia, unspecified organism
[2019-03-09] MEDS ORDERED: Ondansetron 4 MG/2 ML VIAL IVP ONE (18:05)
[2019-03-09] MEDS: traZODone 50 MG TABLET PO SCH (21:24)
[2019-03-09] MEDS: OLANZapine 5 MG TAB.RAPDIS PO SCH (21:24)
[2019-03-10] MEDS: Piperacillin/Tazobactam 3.375 GM in 0.9 % Sodium Chloride Mini Bag 100 ML IVPB SCH ×2 (06:41→17:28)
[2019-03-10] MEDS: Budesonide/Formoterol 160/4.5 1 PUFF INH IH SCH ×2 (07:15→20:27)
[2019-03-10] MEDS ORDERED: *HR* Rocuronium Bromide 50 MG/5 ML VIAL ONE (07:56)
[2019-03-10] MEDS ORDERED: Ondansetron 4 MG/2 ML VIAL ONE (07:56)
[2019-03-10] MEDS ORDERED: *HR* FentaNYL (PF) 100 MCG/2 ML VIAL ONE (07:56)
[2019-03-10] MEDS ORDERED: Dexamethasone 4 MG/ML VIAL ONE (07:56)
[2019-03-10] MEDS ORDERED: Ketorolac 30 MG/ML VIAL ONE (07:56)
[2019-03-10] MEDS ORDERED: *HR* Propofol 200 MG/20 ML VIAL IVP ONE (07:56)
[2019-03-10] MEDS ORDERED: *HR* PHENYLEPHRINE 1,000 MCG/10 ML SYRINGE IVP ONE (07:56)
[2019-03-10] MEDS ORDERED: Neostigmine Methylsulfate 3 MG/3 ML SYRINGE ONE (07:56)
[2019-03-10] MEDS ORDERED: Lidocaine -MPF 2% 2 ML VIAL ONE ×2 (07:56)
[2019-03-10] MEDS ORDERED: *HR* Midazolam HCl 2 MG/2 ML VIAL ONE (07:56)
[2019-03-10] MEDS: Sucralfate 1 GM TABLET PO SCH ×4 (10:13→20:13)
[2019-03-10] MEDS: amLODIPine 5 MG TABLET PO SCH (10:17)
[2019-03-10] MEDS: Isosorbide MONOnitrate (24 HR) 30 MG TAB.ER.24H PO SCH (10:17)
[2019-03-10] MEDS: Aspirin Enteric Coated 81 MG Tablet PO SCH (10:18)
--- NOTE | 2019-03-10 10:18 | Internal Med Progress Note ---
Hospitalist Progress Note - Encounter Date of Encounter: 03/10/19 Time of Encounter: 10:14 - Subjective Interval History: The patient was seen and examined at the bedside. Patient is still confused and had periods of hallucination last night Discussed with Patient at risk of aspiration order speech therapy order CT head to r/o acute brain pathology order ABG , she is on 2-3 L oxygen at home pt/ot recommend SNF however wants her home with home health - Exam Vitals: Temp Pulse Resp BP Pulse Ox 98.3 F 75 17 151/92 100 03/10/19 06:49 03/10/19 06:49 03/10/19 07:25 03/10/19 06:49 03/10/19 07:25 Exam: Physical examination: Gen.: Patient is alert but confused, not in respiratory distress or pain HEENT: perrla , EOMI, no thyroid gland enlargement, no neck mass, supple neck Heart: S1 and S2 darrin, normal sinus rhythm, no cardiac murmur no gallop rhythm Chest: Air entry equal bilaterally, decreased breathing bilaterally , no wheezing, crackles or crepitation Abdomen: Soft nontender nondistended positive bowel sounds, no organomegaly Extremities: No pitting edema, peripheral pulses palpable, no cyanosis tenderness Neuro: Able to move all 4 limbs, DVT Prophylaxis: Heparin - Summary of Assessment and Plan Summary of Assessment and Plan: 68 yo female with ESRD TTS, HFpEF 35%, CAD s/p PCI on 10/15, COPD on 2L o2 presented to the hospital with shortness of breath, cough and sputum production. She had multiple admissions in the past few months for the same presentation. CTA was done and was negative for PE, Current features of volume overload including bilateral pleural effusion and moderate interstitial pulmonary edema. As per the , patient blood pressure was not controlled yesterday and it was 180/120 before presentation. Her symptoms are managed as following: Acute Encephalopathy: could be metabolic versus delirium? order CT head wc ABG assess swallowing to r/o aspiration - Phenergan and Ativan are on hold. Keep Zyprexa dose to 5 mg at bedtime. Acute on chronic hypoxic respiratory failure: resolving - From volume overload, COPD exacerbation and less likely pneumonia. - For COPD: finished prednisone and Azithromax. Continue home dose inhalers. - HFrEF: ?hypertensive emergency. Patient is on home O2 requirements at 2L. - Low suspicion for pneumonia, however the patient developed low-grade temperature on 03/06 along with high leukocytosis and high procalictonin for which she was started back on Zosyn day 12/03. Finished azithromycin day 12/01, i suspect aspiration order speech therapy discussed with check another serum procal labs this morning pending no fever Chest pain: resolved - EKG: Sinus Rhythm with no ischemic changes. Troponin peaked to 0.04 likely from her underlying CKD. no chest pain today GERD on Protonix 40 mg BID and continue with Carafate ESRD: TTS. Nephro is following. HTN: Controlled, on norvasc 5 mg at home, losartan and BB Hypothyroidism: Home dose levothyroxine. CAD status post stent: Continue aspirin and Plavix, and beta blockers. not willing in palliative care wants home with home health refused SNF DVT prophylaxis: sc heparin High risk for complication. - Time Spent with Patient Total time spent is greater than 50% in coordination of care (as documented) at patient's floor/unit and/or counseling patient: Internal Medicine: Result - Labs CBC & Chem 7: 03/09/19 05:00 03/09/19 05:00 - ABG Interpretation ABG results: ABG ABG pH 7.44 pH Units (7.32-7.45) 03/06/19 11:02 ABG pCO2 42 mmHg (35-45) 03/06/19 11:02 ABG pO2 63 mmHg (85-104) L 03/06/19 11:02 ABG O2 Saturation 93 % (95-98) L 03/06/19 11:02 PT/INR, D-dimer PT 10.1 Seconds (9.4-12.1) 03/03/19 22:46 Consult Discharge Plan - Plan Referrals: NONE,PCP [Primary Care Provider] -
[2019-03-10 10:38] LABS: Hematocrit 32.1 % (35.3-44.9); Mean Corpuscular HGB Conc 31.2 g/dL (31.6-35.5); Mean Corpuscular Hemoglobin 25.4 pg (28.0-33.3); Mean Corpuscular Volume 81.7 fL (83.0-100.0); Mean Platelet Volume 9.5 fL (9.4-12.4); Platelet Count 261 K/mcL (140-400); Red Blood Count 3.93 M/mcL (3.82-4.97); Red Cell Distribution Width 16.8 % (11.5-14.5); White Blood Count 10.9 K/mcL (4.3-11.1)
[2019-03-10 10:55] LABS: Albumin 3.2 g/dL (3.5-5.7); Albumin/Globulin Ratio 1.2 (1.1-2.2); Bilirubin,Total 0.4 mg/dL (0.3-1.0); Calcium 8.5 mg/dL (8.6-10.3); Globulin 2.6 g/dL (2.4-3.5); Magnesium 1.5 mg/dL (1.6-2.6); Phosphorous 3.9 mg/dL (2.7-4.5); Potassium 3.9 mEq/L (3.5-5.1); Total Protein 5.8 g/dL (6.4-8.9)
[2019-03-10 11:07] LABS: Thyroid Stimulating Hormone 5.554 mcIU/mL (0.340-5.600)
--- NOTE | 2019-03-10 11:33 | Nephrology Progress Note ---
Date of Encounter: 03/10/19 Time of Encounter: 11:33 - Assessment and Plan (1) ESRD (end stage renal disease) on dialysis Current Visit: Yes Status: Chronic Current regimen is TTS at [facility]. Plan for HD tomorrow, last treatment was Sunday without complication. Renal diet Renal vitamins Strict I/O Avoid nephrotoxins and renal dose all medications. Will order additional UF or HD as needed. (2) COPD (chronic obstructive pulmonary disease) Current Visit: Yes Status: Chronic As per primary Qualifiers: COPD type: unspecified COPD Qualified Code(s): J44.9 - Chronic obstructive pulmonary disease, unspecified (3) HTN (hypertension) Current Visit: No Status: Chronic Titrate blood pressure medication as needed, but to hold antihypertensive medications on the day of dialysis to help minimize the risk of intradialytic hypotension. Qualifiers: Hypertension type: essential hypertension Qualified Code(s): I10 - Essential (primary) hypertension (4) Anemia Current Visit: No Status: Chronic Goal hemoglobin 10-11 in the setting of ESRD. We will assess for IV iron and/or EPO as needed. Transfusion parameters as per primary team. Qualifiers: Anemia type: iron deficiency Iron deficiency anemia type: unspecified iron deficiency Qualified Code(s): D50.9 - Iron deficiency anemia, unspecified (5) Acute and chronic respiratory failure Current Visit: No Status: Acute Per the primary team. Etiology seems to be volume overload plus or minus co ngestive heart failure. Qualifiers: Respiratory failure complication: hypoxia Qualified Code(s): J96.21 - Acute and chronic respiratory failure with hypoxia (6) Hyperkalemia Current Visit: Yes Status: Resolved Improved. I recommend she follow a low potassium/renal diet to help prevent future episodes of hyperkalemia (7) Hyponatremia Current Visit: Yes Status: Acute She has fluctuating hyponatremia that improved after dialysis yesterday, but still persists at 130. I recommend she follow a fluid restriction, especially a freewater fluid restriction of less than 1.5 L per day. Subjective Principal diagnosis: difficulty in breathing Interval history: Patient seen and examined, is still confused at this time. at bedside. Denies chest pain admits to chronic shortness of breath. Denies nausea, vomiting, diarrhea. Reoriented to person, place, and time. Objective - Vital Signs Vital signs: Vital Signs Temp Pulse Resp BP Pulse Ox 03/10/19 07:25 17 100 03/10/19 06:49 98.3 F 75 18 151/92 100 03/10/19 03:37 97.8 F 73 16 159/82 100 03/09/19 19:56 17 149/63 100 03/09/19 19:50 98.9 F 74 18 149/63 100 03/09/19 15:00 98.3 F 69 16 117/73 100 03/09/19 12:11 97.9 F 73 18 105/71 98 Intake and Output 03/09/19 03/10/19 03/10/19 23:59 07:59 15:59 Intake Total 100 / 640 100 / 100 Balance 100 / 440 100 / 100 Intake: IV Fluids 100 / 200 100 / 100 Zosyn 3.375 GM In 0.9 % Sodium 100 / 200 100 / 100 Chloride (Mini-Bag +) 100 ML @ 25 mls/hr IVPB Q12HR [facility] Rx#: [id number] Oral 0 / 240 Other: Meal Dinner Percent of Meal Consumed 0% Weight 51 kg Patient Weight 03/10/19 23:59 Weight 51 kg - General Appearance General appearance: Present: chronically ill, frail EENT: Present: ATNC, hearing intact, vision intact Neck: Present: supple Respiratory: Present: clear Cardiology: Present: no edema, normal S1, normal S2 Dialysis Vascular Access: Venous Catheter (DRSG C/D/I) Gastrointestinal: Present: normoactive bowel sounds, no tenderness, no guarding Integumentary: Present: no rash, warm and dry Neurologic: Present: confused Musculoskeletal: Present: no deformities, no erythema Psychiatric: Present: mood/affect appropriate, cooperative - Lab 03/10/19 10:10 03/10/19 10:10 Most recent lab results 03/10/19 10:10 Calcium 8.5 L Phosphorus 3.9 Magnesium 1.5 L Consult Discharge Plan - Plan Referrals: NONE,PCP [Primary Care Provider] -
[2019-03-10 14:21] LABS: ABG Base Excess -2 mEq/L (-2 to 3); ABG HCO3 23 mEq/L (21-27); ABG Oxygen Saturation 99 % (95-98); ABG PCO2 42 mmHg (35-45); ABG PH 7.36 pH Units (7.32-7.45); ABG PO2 132 mmHg (85-104); ABG TCO2 25 mEq/L (20-26)
[2019-03-10] MEDS ORDERED: E-Z-HD (BARIUM SULF) SUSPENSION PO ONE (15:38)
[2019-03-10] MEDS ORDERED: E-Z-PAQUE (BARIUM SULF) SUSP 1 BOTTLE PO ONE (15:38)
[2019-03-10] MEDS: *HR* Heparin 5,000 UNIT/ML VIAL SQ SCH ×2 (16:00→20:11)
[2019-03-10] MEDS: OLANZapine 5 MG TAB.RAPDIS PO SCH (20:12)
[2019-03-10] MEDS: traZODone 50 MG TABLET PO SCH (21:34)
[2019-03-11 03:02] LABS: Hematocrit 27.7 % (35.3-44.9); Hemoglobin 8.7 g/dL (11.5-15.4); Mean Corpuscular HGB Conc 31.4 g/dL (31.6-35.5); Mean Corpuscular Hemoglobin 25.5 pg (28.0-33.3); Mean Corpuscular Volume 81.2 fL (83.0-100.0); Platelet Count 255 K/mcL (140-400); Red Blood Count 3.41 M/mcL (3.82-4.97); Red Cell Distribution Width 16.8 % (11.5-14.5)
[2019-03-11 03:19] LABS: Albumin/Globulin Ratio 1.3 (1.1-2.2); Bilirubin,Total 0.4 mg/dL (0.3-1.0); Calcium 8.2 mg/dL (8.6-10.3); Globulin 2.4 g/dL (2.4-3.5); Magnesium 1.3 mg/dL (1.6-2.6); Phosphorous 4.4 mg/dL (2.7-4.5); Potassium 3.8 mEq/L (3.5-5.1); Total Protein 5.4 g/dL (6.4-8.9)
[2019-03-11] MEDS: *HR* Heparin 5,000 UNIT/ML VIAL SQ SCH ×3 (05:42→20:28)
[2019-03-11] MEDS: Piperacillin/Tazobactam 3.375 GM in 0.9 % Sodium Chloride Mini Bag 100 ML IVPB SCH ×2 (05:42→17:09)
[2019-03-11] MEDS ORDERED: 0.9 % Sodium Chloride 250 ML IVC PRN (06:57)
[2019-03-11] MEDS: Isosorbide MONOnitrate (24 HR) 30 MG TAB.ER.24H PO SCH (07:35)
[2019-03-11] MEDS: amLODIPine 5 MG TABLET PO SCH (07:36)
[2019-03-11] MEDS: Sucralfate 1 GM TABLET PO SCH ×4 (07:37→20:28)
[2019-03-11] MEDS: Budesonide/Formoterol 160/4.5 1 PUFF INH IH SCH ×2 (07:40→19:42)
[2019-03-11] MEDS: Magnesium Oxide 400 MG TABLET PO SCH ×2 (10:35→20:27)
[2019-03-11] MEDS: Aspirin Enteric Coated 81 MG Tablet PO SCH (10:35)
--- NOTE | 2019-03-11 10:43 | Nephrology Progress Note ---
Date of Encounter: 03/11/19 Time of Encounter: 10:41 - Assessment and Plan (1) ESRD (end stage renal disease) on dialysis Current Visit: Yes Status: Chronic Current regimen is TTS at [facility]. HD in progress for today. Renal diet Renal vitamins Strict I/O Avoid nephrotoxins and renal dose all medications. Will order additional UF or HD as needed. (2) COPD (chronic obstructive pulmonary disease) Current Visit: Yes Status: Chronic As per primary Qualifiers: COPD type: unspecified COPD Qualified Code(s): J44.9 - Chronic obstructive pulmonary disease, unspecified (3) HTN (hypertension) Current Visit: No Status: Chronic Titrate blood pressure medication as needed, but to hold antihypertensive medications on the day of dialysis to help minimize the risk of intradialytic hypotension. Qualifiers: Hypertension type: essential hypertension Qualified Code(s): I10 - Ess ential (primary) hypertension (4) Anemia Current Visit: No Status: Chronic Goal hemoglobin 10-11 in the setting of ESRD. Hgb is 8.7, stable. We will assess for IV iron and/or EPO as needed. Transfusion parameters as per primary team. Epo ordered. Qualifiers: Anemia type: iron deficiency Iron deficiency anemia type: unspecified iron deficiency Qualified Code(s): D50.9 - Iron deficiency anemia, unspecified (5) Acute and chronic respiratory failure Current Visit: No Status: Acute Per the primary team. Etiology seems to be volume overload plus or minus congestive heart failure. Qualifiers: Respiratory failure complication: hypoxia Qualified Code(s): J96.21 - Acute and chronic respiratory failure with hypoxia (6) Hyperkalemia Current Visit: Yes Status: Resolved Improved. I recommend she follow a low potassium/renal diet to help prevent future episodes of hyperkalemia (7) Hyponatremia Current Visit: Yes Status: Acute She has fluctuating hyponatremia that improved after dialysis yesterday, but still persists at 130. I recommend she follow a fluid restriction, especially a freewater fluid restriction of less than 1.5 L per day. (8) Hypomagnesemia Current Visit: Yes Status: Acute Magnesium is 1.3, mag ox ordered. Subjective Principal diagnosis: difficulty in breathing Interval history: Patient seen and examined in HD, is still confused at this time. Denies chest pain admits to chronic shortness of breath. Denies nausea, vomiting, diarrhea. Reoriented to person, place, and time. Objective - Vital Signs Vital signs: Vital Signs Temp Pulse Resp BP Pulse Ox 03/11/19 10:00 106/66 03/11/19 09:45 107/62 03/11/19 09:30 107/67 03/11/19 09:15 111/66 03/11/19 09:00 123/87 03/11/19 08:45 141/82 03/11/19 08:30 144/92 03/11/19 08:15 145/81 03/11/19 08:00 98.4 F 18 137/78 03/11/19 07:42 16 100 03/11/19 03:32 98 F 77 16 148/72 100 03/10/19 23:06 97.6 F 74 16 128/61 100 03/10/19 20:31 14 98 03/10/19 20:11 98 03/10/19 19:30 97.4 F L 74 18 117/57 100 03/10/19 15:55 98.1 F 69 18 121/63 100 03/10/19 12:11 97.5 F L 65 18 128/72 98 Intake and Output 03/10/19 03/11/19 03/11/19 23:59 07:59 15:59 Intake Total 220 / 320 600 / 600 Balance 220 / 320 600 / 600 Intake: IV Fluids 100 / 200 Zosyn 3.375 GM In 0.9 % Sodium 100 / 200 Chloride (Mini-Bag +) 100 ML @ 25 mls/hr IVPB Q12HR [facility] Rx#: [id number] Oral 120 / 120 Intake, Rinseback and Flushes 600 / 600 Other: Meal Dinner Percent of Meal Consumed 50% Weight 49.1 kg Hemodialysis Net Fluid Removed 2216 (mL) Patient Weight 03/11/19 23:59 Weight 49.1 kg - General Appearance General appearance: Present: chronically ill, frail EENT: Present: ATNC, hearing intact, vision intact Neck: Present: supple Respiratory: Present: clear Cardiology: Present: no edema, normal S1, normal S2 Dialysis Vascular Access: Venous Catheter (DRSG C/D/I) Gastrointestinal: Present: normoactive bowel sounds, no tenderness, no guarding Integumentary: Present: no rash, warm and dry Neurologic: Present: confused Musculoskeletal: Present: no deformities, no erythema Psychiatric: Present: mood/affect appropriate, cooperative - Lab 03/11/19 02:25 03/11/19 02:25 Most recent lab results 03/11/19 02:25 Calcium 8.2 L Phosphorus 4.4 Magnesium 1.3 L Consult Discharge Plan - Plan Referrals: NONE,PCP [Primary Care Provider] -
--- NOTE | 2019-03-11 12:57 | Internal Med Progress Note ---
Hospitalist Progress Note - Encounter Date of Encounter: 03/11/19 Time of Encounter: 12:54 - Subjective Interval History: The patient was seen and examined at the bedside Patient underwent hemodialysis today and then she developed acute epistaxis which is stopped on parking Dobutamine dropped from 10.1 to 8.7 Patient taking aspirin and Plavix Monitor CBC and check occult blood test Scars with the patient and with the patient's Patient denies chest pain or shortness of breath Denies hematemesis or black stool - Exam Vitals: Temp Pulse Resp BP Pulse Ox 98.0 F 77 18 145/66 100 03/11/19 11:30 03/11/19 03:32 03/11/19 11:30 03/11/19 11:30 03/11/19 07:42 Exam: Physical examination: Gen.: Patient is alert and awake, not in respiratory distress or pain HEENT: perrla , EOMI, no thyroid gland enlargement, no neck mass, supple neck Heart: S1 and S2 darrin, normal sinus rhythm, no cardiac murmur no gallop rhythm Chest: Air entry equal bilaterally, decreased breathing bilaterally , no wheezing, crackles or crepitation Abdomen: Soft nontender nondistended positive bowel sounds, no organomegaly Extremities: No pitting edema, peripheral pulses palpable, no cyanosis tenderness Neuro: Able to move all 4 limbs, DVT Prophylaxis: Heparin - Summary of Assessment and Plan Summary of Assessment and Plan: 68 yo female with ESRD TTS, HFpEF 35%, CAD s/p PCI on 10/15, COPD on 2L o2 presented to the hospital with shortness of breath, cough and sputum production. She had multiple admissions in the past few months for the same presentation. CTA was done and was negative for PE, Current features of volume overload including bilateral pleural effusion and moderate interstitial pulmonary edema. As per the , patient blood pressure was not controlled yesterday and it was 180/120 before presentation. Her symptoms are managed as following: Acute Encephalopathy: could be metabolic versus delirium? order CT head non acute ABG show no CO2 retention assess swallowing to r/o aspiration - Phenergan and Ativan are on hold. Keep Zyprexa dose to 5 mg at bedtime. Acute on chronic hypoxic respiratory failure: resolving - From volume overload, COPD exacerbation and less likely pneumonia. - For COPD: finished prednisone and Azithromax. Continue home dose inhalers. - HFrEF: ?hypertensive emergency. Patient is on home O2 requirements at 2L. - Low suspicion for pneumonia, however the patient developed low-grade temperature on 03/06 along with high leukocytosis and high procalictonin for which she was started back on Zosyn day 01/03. tommorrow is last dose of iv zosyn i suspect aspiration order speech therapy discussed with check another serum procal 0.6 labs this morning pending no fever Chest pain: resolved - EKG: Sinus Rhythm with no ischemic changes. Troponin peaked to 0.04 likely from her underlying CKD. no chest pain today Anemia: couldbe anemia of ESRD, hb dropped to 8.7 from 10.1 has epistaxis today denies black stool monitor CBC and check iron studies check FOBT monitor for further epistaxis GERD on Protonix 40 mg BID and continue with Carafate ESRD: TTS. Nephro is following. HTN: Controlled, on norvasc 5 mg at home, losartan and BB Hypothyroidism: Home dose levothyroxine. CAD status post stent: Continue aspirin and Plavix, and beta blockers. not willing in palliative care wants home with home health refused SNF DVT prophylaxis: sc heparin High risk for complication. - Time Spent with Patient Total time spent is greater than 50% in coordination of care (as documented) at patient's floor/unit and/or counseling patient: Internal Medicine: Result - Labs CBC & Chem 7: 03/11/19 02:25 03/11/19 02:25 Labs: Short CBC 03/11/19 Range/Units 02:25 WBC 9.0 (4.3-11.1) K/mcL Hgb 8.7 L (11.5-15.4) g/dL Hct 27.7 L (35.3-44.9) % Plt Count 255 (140-400) K/mcL BMP 03/11/19 02:25 Sodium 129 L Potassium 3.8 Chloride 94 L Carbon Dioxide 20 L BUN 41 H Creatinine 5.59 H Glucose 69 L Calcium 8.2 L Liver Function 03/11/19 Range/Units 02:25 Total Bilirubin 0.4 (0.3-1.0) mg/dL AST 8 L (13-39) Units/L ALT 5 L (7-52) Units/L Alkaline Phosphatase 42 (34-104) Units/L Albumin 3.0 L (3.5-5.7) g/dL - ABG Interpretation ABG results: ABG ABG pH 7.36 pH Units (7.32-7.45) 03/10/19 14:11 ABG pCO2 42 mmHg (35-45) 03/10/19 14:11 ABG pO2 132 mmHg (85-104) H 03/10/19 14:11 ABG O2 Saturation 99 % (95-98) H 03/10/19 14:11 PT/INR, D-dimer PT 10.1 Seconds (9.4-12.1) 03/03/19 22:46 - Impressions Impressions Videofluoroscopic Swallow 03/10/19 12:27 IMPRESSION: Intermittent flash penetration with thin liquid. Please see separate speech pathology report for full discussion of findings and recommendations. D/ / Albert Cervantes MD / Albert Cervantes MD Interpreting Provider: Albert Cervantes MD Consult Discharge Plan - Plan Referrals: NONE,PCP [Primary Care Provider] -
[2019-03-11 16:03] LABS: % Iron Saturation 30 % (15-50); Iron 53 mcg/dL (50-170); Transferrin 126 mg/dL (203-362)
[2019-03-11 16:21] LABS: Ferritin 548 ng/mL (10-120)
[2019-03-11] MEDS: Acetaminophen 325 MG TABLET PO PRN (18:35)
--- NOTE | 2019-03-11 18:37 | Event Note ---
Date of Encounter: 03/11/19 Time of Encounter: 18:34 the patient develop another episode of epistaxis i went to see patient hemodynamically stable recommend local pressure and may use afrin locally twice if bleeding recure again may hold plavix check CBC the patients states can not take blood products closely monitor BP and HR consult ENT in morning
[2019-03-11 18:54] LABS: Basophils % 0.2 %; Eosinophils # 0.2 K/mcL (0.0-0.6); Eosinophils % 1.6 %; Hematocrit 30.7 % (35.3-44.9); Hemoglobin 9.8 g/dL (11.5-15.4); Immature Granulocytes % 0.6 % (0-4); Lymphocytes # 0.9 K/mcL (0.6-4.6); Lymphocytes % 9.8 %; Mean Corpuscular HGB Conc 31.9 g/dL (31.6-35.5); Mean Corpuscular Hemoglobin 25.9 pg (28.0-33.3); Monocytes # 0.6 K/mcL (0.0-1.3); Monocytes % 6.1 %; Neutrophils # 7.9 K/mcL (1.6-8.9); Platelet Count 274 K/mcL (140-400); Red Blood Count 3.79 M/mcL (3.82-4.97); Red Cell Distribution Width 16.6 % (11.5-14.5); Segmented Neutrophils % 81.7 %; White Blood Count 9.6 K/mcL (4.3-11.1)
[2019-03-11] MEDS: OLANZapine 5 MG TAB.RAPDIS PO SCH (20:27)
[2019-03-11] MEDS: traZODone 50 MG TABLET PO SCH (20:27)
[2019-03-12 01:46] LABS: Hemoglobin 9.2 g/dL (11.5-15.4); Mean Corpuscular HGB Conc 31.7 g/dL (31.6-35.5); Mean Corpuscular Hemoglobin 25.8 pg (28.0-33.3); Mean Corpuscular Volume 81.2 fL (83.0-100.0); Mean Platelet Volume 9.6 fL (9.4-12.4); Platelet Count 256 K/mcL (140-400); Red Blood Count 3.57 M/mcL (3.82-4.97); Red Cell Distribution Width 16.8 % (11.5-14.5); White Blood Count 8.7 K/mcL (4.3-11.1)
[2019-03-12 02:07] LABS: Albumin 3.2 g/dL (3.5-5.7); Albumin/Globulin Ratio 1.2 (1.1-2.2); Bilirubin,Total 0.4 mg/dL (0.3-1.0); Calcium 8.5 mg/dL (8.6-10.3); Globulin 2.6 g/dL (2.4-3.5); Magnesium 1.6 mg/dL (1.6-2.6); Phosphorous 3.4 mg/dL (2.7-4.5); Potassium 3.7 mEq/L (3.5-5.1); Total Protein 5.8 g/dL (6.4-8.9)
[2019-03-12] MEDS: *HR* Heparin 5,000 UNIT/ML VIAL SQ SCH (05:23)
[2019-03-12] MEDS: Piperacillin/Tazobactam 3.375 GM in 0.9 % Sodium Chloride Mini Bag 100 ML IVPB SCH (05:29)
[2019-03-12] MEDS: Budesonide/Formoterol 160/4.5 1 PUFF INH IH SCH (07:39)
[2019-03-12] MEDS: Aspirin Enteric Coated 81 MG Tablet PO SCH (07:42)
[2019-03-12] MEDS: Isosorbide MONOnitrate (24 HR) 30 MG TAB.ER.24H PO SCH (07:42)
[2019-03-12] MEDS: amLODIPine 5 MG TABLET PO SCH (07:42)
[2019-03-12] MEDS: Magnesium Oxide 400 MG TABLET PO SCH (07:42)
[2019-03-12] MEDS: Sucralfate 1 GM TABLET PO SCH (07:43)
--- NOTE | 2019-03-12 10:19 | Discharge Summary ---
- NOTES TO OUTPATIENT PROVIDER Notes to Outpatient Provider: Patient was hospitalized for increased shortness of breath due to COPD exacerbation was as pneumonia. Patient will be discharged to home care. Follow-up on the continuous need of the home oxygen. Follow up on the urine culture, and blood culture, and pneumococcal and Legionella antigen test. Orders not resulted at time of discharge: Pending orders 03/04/19 04:36 Legionella Antigen [RM] Stat S. Pneumoniae Antigen [RM] Stat 03/06/19 17:07 UA w. reflex microscopic [Urinalysis reflex Microscopic] [URIN] Routine 03/11/19 18:18 Culture,Blood [BC] Routine Estimated PT Needs at Discharge: Home Health Date of Encounter: 03/12/19 Time of Encounter: 10:15 - Discharge Diagnosis (1) COPD exacerbation Priority: Primary Status: Resolved (2) DVT prophylaxis Priority: Secondary Status: Chronic (3) Congestive heart failure (CHF) Priority: Secondary Status: Resolved Qualifiers: Heart failure type: unspecified Heart failure chronicity: acute on chronic Qualified Code(s): I50.9 - Heart failure, unspecified (4) Acute on chronic respiratory failure with hypoxia Priority: Secondary Status: Resolved (5) ESRD (end stage renal disease) on dialysis Priority: Secondary Status: Chronic (6) Hyperkalemia Priority: Secondary Status: Resolved (7) Pneumonia Priority: Secondary Status: Acute Qualifiers: Pneumonia type: due to unspecified organism Lung location: unspecified part of lung Qualified Code(s): J18.9 - Pneumonia, unspecified organism Hospital course: Ms. Weeks is a 68 year old female with past medical history of COPD, end-stage renal disease on dialysis, heart failure with preserved selection, coronary artery disease, presents to the hospital with shortness of breath. Patient was treated for COPD exacerbation with azithromycin steroid. Patient was also treated for aspiration pneumonia with Zosyn. Patient finished her antibiotic course in the hospital. Patient improved. And patient was discharged in stable condition. Patient is to follow-up with primary care provider for the blood culture and urine culture report. Advised to follow up with primary care provider within a week. Patient will be discharged to home of care today to go for dialysis tomorrow. Patient goes to dialysis on Sunday and Sunday. Discharge discussed with: patient, family, social work, case management - Time Spent with Patient Total time spent providing and/or coordinating discharge services:40 Time spent: Greater than 30 minutes - Discharge Medications Prescriptions: Continued Atenolol [Tenormin] 50 mg PO DAILY amLODIPine [Norvasc] 2.5 mg PO DAILY Levothyroxine [Synthroid] 75 mcg PO QAM Fluticasone/Salmeterol [Advair 250-50 Diskus] 1 puff IH BID Clopidogrel [Plavix] 75 mg PO DAILY Losartan Potassium [Cozaar] 50 mg PO BID Albuterol Sulfate [Ventolin Hfa] 2 puff IH Q4H PRN PRN Reason: Shortness Of Breath Aspirin [Adult Aspirin Regimen] 81 mg PO DAILY Ipratropium/Albuterol Sulfate [Iprat-Albut 0.5-3(2.5) mg/3 ml] 3 ml IH Q6H PRN PRN Reason: Shortness Of Breath Isosorbide MONOnitrate (24 HR) [Imdur] 30 mg PO DAILY Ferrous Sulfate [Iron] 325 mg PO DAILY OLANZapine [Zyprexa] 2.5 mg PO HS Ondansetron HCl [Zofran] 4 mg PO Q6H PRN PRN Reason: Nausea Sucralfate [Carafate] 1 gm PO QIDAC #120 tablet Pantoprazole Sodium [Protonix] 40 mg PO BID #60 tablet. Lactose-Reduced Food [M/A-COM] 1 bottle PO TID #90 can LORazepam [Ativan] 0.5 mg PO TID Home Medications: Atenolol [Tenormin] 50 mg PO DAILY 10/21/18 [History] Clopidogrel [Plavix] 75 mg PO DAILY 10/21/18 [History] Fluticasone/Salmeterol [Advair 250-50 Diskus] 1 puff IH BID 10/21/18 [History] Levothyroxine [Synthroid] 75 mcg PO QAM 10/21/18 [History] Losartan Potassium [Cozaar] 50 mg PO BID 10/21/18 [History] amLODIPine [Norvasc] 2.5 mg PO DAILY 10/21/18 [History] Albuterol Sulfate [Ventolin Hfa] 2 puff IH Q4H PRN 11/14/18 [History] Aspirin [Adult Aspirin Regimen] 81 mg PO DAILY 11/14/18 [History] Ipratropium/Albuterol Sulfate [Iprat-Albut 0.5-3(2.5) mg/3 ml] 3 ml IH Q6H PRN 11/14/18 [History] Ferrous Sulfate [Iron] 325 mg PO DAILY 01/17/19 [History] Isosorbide MONOnitrate (24 HR) [Imdur] 30 mg PO DAILY 01/17/19 [History] OLANZapine [Zyprexa] 2.5 mg PO HS 02/04/19 [History] Ondansetron HCl [Zofran] 4 mg PO Q6H PRN 02/18/19 [History] Pantoprazole Sodium [Protonix] 40 mg PO BID #60 tablet. 02/21/19 [Rx] Sucralfate [Carafate] 1 gm PO QIDAC #120 tablet 02/21/19 [Rx] Lactose-Reduced Food [[employer]] 1 bottle PO TID #90 can 01/28 02/14 [Rx] LORazepam [Ativan] 0.5 mg PO TID 03/04/19 [History] Allergies/Adverse Reactions: Allergy/AdvReac Type Severity Reaction Status Date / Time atorvastatin Allergy See Verified 03/04/19 14:49 Comments doxycycline Allergy Rash Verified 03/04/19 14:49 Sulfa (Sulfonamide Allergy Rash Verified 03/04/19 14:49 Antibiotics) codeine AdvReac Nausea Verified 03/04/19 14:49 hydrocodone [From Vicodin] AdvReac Irritable Verified 03/04/19 14:49 Date of admission: 03/04/19 03:44 Primary care physician: PCP NONE Consults: 03/04/19 04:23 Consult to Nephrology [CONS] Routine Consulting Provider: Kidney Merna/GUNJAN/MELISSA/LUISA Reason for Consult: And Stage renal disease on dialysis. Call Completed: No 03/04/19 04:24 Consult to Pulmonology [CONS] Routine Consulting Provider: Pulm Crit Care & Sleep Merna Reason for Consult: Respiratory distress Call Completed: No 03/04/19 08:13 Consult to Nurse Navigator [CONS] Routine Comment: copd, chf, pn, hd 03/04/19 08:15 Consult to Dialysis [CONS] ONCE 03/05/19 07:28 Consult to Occupational Therapy [CONS] Routine Comment: Evaluate, develop and implement POC Reason for Consult: evaluate the need for skilled placement Does patient have active BEDREST order?: No Is patient medically & hemodynamically stable?: Yes Consult to Physical Therapy [CONS] Routine Comment: Evaluate, develop and implement POC Reason for Consult: evaluate the need for skilled placement Does patient have active BEDREST order?: No Is patient medically & hemodynamically stable?: Yes 03/06/19 08:30 Consult to Dialysis [CONS] ONCE 03/06/19 10:03 Consult to Palliative Care [CONS] Routine Comment: Consulting Provider: Palliative Care Merna Reason for Consult: ESRD, COPD on 2L, EF 35%. Discuss hospice options Call Completed: Yes 03/08/19 08:00 Consult to Dialysis [CONS] ONCE 03/11/19 07:00 Consult to Dialysis [CONS] QTUTHSA 03/13/19 07:00 Consult to Dialysis [CONS] QTUTHSA Discharging clinician: Jairon Montanez - Constitutional Vitals: Temp Pulse Resp BP Pulse Ox 98.8 F 100 18 113/69 100 03/12/19 06:44 03/12/19 06:44 03/12/19 06:44 03/12/19 06:44 03/12/19 06:44 General appearance: Present: cooperative, A&O X 3 Exam: Physical examination: Gen.: Patient is alert and awake, not in respiratory distress or pain HEENT: perrla , EOMI, no thyroid gland enlargement, no neck mass, supple neck Heart: S1 and S2 darrin, normal sinus rhythm, no cardiac murmur no gallop rhythm Chest: Air entry equal bilaterally, decreased breathing bilaterally , no wheezing, crackles or crepitation Abdomen: Soft nontender nondistended positive bowel sounds, no organomegaly Extremities: No pitting edema, peripheral pulses palpable, no cyanosis tenderness Neuro: Able to move all 4 limbs, - Patient Status Disposition: Home Health Service Condition: Good Overall status at discharge: patient is progressing back to baseline - Discharge Instructions Follow Up With: Patricia Topete SIEVE MAKER [Advanced Practice Nurse] - 03/17/19 9:00 am (Please follow up as schedule) NONE,PCP [Primary Care Provider] - - Diet and Activity Activity: ambulate only with your walker, as per physical therapy, increase activity as tolerated Diet: advance to your usual diet
--- NOTE | 2019-03-12 10:23 | Physician Discharge Referral ---
Home Health/Hosp Referral Info Transfer to: Home Health Provider in Charge Post Discharge: PCP - Diagnosis (1) COPD exacerbation Priority: Primary Status: Resolved (2) DVT prophylaxis Priority: Secondary Status: Chronic (3) Congestive heart failure (CHF) Priority: Secondary Status: Resolved (4) Acute on chronic respiratory failure with hypoxia Priority: Secondary Status: Resolved (5) ESRD (end stage renal disease) on dialysis Priority: Secondary Status: Chronic (6) Hyperkalemia Priority: Secondary Status: Resolved (7) Pneumonia Priority: Secondary Status: Acute - Respiratory Orders Oxygen / L per min (3 L) Smoking Cessation: Smoking cessation has been advised. For more information, call the [place] Tobacco Quit Line at 6-499-HKMB-NOW. - Diet/Nutrition Diet/Nutrition Orders: Renal, Cardiac - Activity Activity Orders: Ambulate, Walker - Services Needed Following services are medically necessary services: Nursing, Home Health Aide, Physical Therapy, Occupational Therapy - Transfer Medications Home Medications: Atenolol [Tenormin] 50 mg PO DAILY 10/21/18 [History] Clopidogrel [Plavix] 75 mg PO DAILY 10/21/18 [History] Fluticasone/Salmeterol [Advair 250-50 Diskus] 1 puff IH BID 10/21/18 [History] Levothyroxine [Synthroid] 75 mcg PO QAM 10/21/18 [History] Losartan Potassium [Cozaar] 50 mg PO BID 10/21/18 [History] amLODIPine [Norvasc] 2.5 mg PO DAILY 10/21/18 [History] Albuterol Sulfate [Ventolin Hfa] 2 puff IH Q4H PRN 11/14/18 [History] Aspirin [Adult Aspirin Regimen] 81 mg PO DAILY 11/14/18 [History] Ipratropium/Albuterol Sulfate [Iprat-Albut 0.5-3(2.5) mg/3 ml] 3 ml IH Q6H PRN 11/14/18 [History] Ferrous Sulfate [Iron] 325 mg PO DAILY 01/17/19 [History] Isosorbide MONOnitrate (24 HR) [Imdur] 30 mg PO DAILY 01/17/19 [History] OLANZapine [Zyprexa] 2.5 mg PO HS 02/04/19 [History] Ondansetron HCl [Zofran] 4 mg PO Q6H PRN 02/18/19 [History] Pantoprazole Sodium [Protonix] 40 mg PO BID #60 tablet. 02/21/19 [Rx] Sucralfate [Carafate] 1 gm PO QIDAC #120 tablet 02/21/19 [Rx] Lactose-Reduced Food [Ensure [employer]] 1 bottle PO TID #90 can 02/22/19 [Rx] LORazepam [Ativan] 0.5 mg PO TID 03/04/19 [History] Allergies/Adverse Reactions: Allergy/AdvReac Type Severity Reaction Status Date / Time atorvastatin Allergy See Verified 03/04/19 14:49 Comments doxycycline Allergy Rash Verified 03/04/19 14:49 Sulfa (Sulfonamide Allergy Rash Verified 03/04/19 14:49 Antibiotics) codeine AdvReac Nausea Verified 03/04/19 14:49 hydrocodone [From Vicodin] AdvReac Irritable Verified 03/04/19 14:49 Certification: Further, I certify that my clinical findings support that this patient is homebound (i.e. absences from home require considerable and taxing effort and are for medical reasons or judaism services or infrequently or short duration when for other reasons) because: Homebound Reason: Patient requires assistance of a person or device to safely leave home Attestation: My signature below is to certify that this patient is under my care and that I, or nurse practitioner, or a physician's lpn medical assistant working with me, has a [id number] encounter with this patient.
[2019-03-12 10:59] VITALS: BP 99/64
--- NOTE | 2019-03-12 12:40 | Nephrology Progress Note ---
Date of Encounter: 03/12/19 Time of Encounter: 09:05 - Assessment and Plan (1) ESRD (end stage renal disease) on dialysis Status: Chronic ESRD TTS at [facility]. Plan for HD tomorrow outpatient. HD completed yesterday. (2) COPD (chronic obstructive pulmonary disease) Status: Chronic As per primary Qualifiers: COPD type: unspecified COPD Qualified Code(s): J44.9 - Chronic obstructive pulmonary disease, unspecified (3) HTN (hypertension) Status: Chronic Titrate blood pressure medication as needed, but to hold antihypertensive medications on the day of dialysis to help minimize the risk of intradialytic hypotension. Qualifiers: Hypertension type: essential hypertension Qualified Code(s): I10 - Essential (primary) hypertension (4) Anemia Status: Chronic Goal hemoglobin 10-11 in the setting of ESRD. Hgb is 9.2, , stable. We will assess for IV iron and/or EPO as needed. Transfusion parameters as per primary team. Epo ordered. Qualifiers: Anemia type: iron deficiency Iron deficiency anemia type: unspecified iron deficiency Qualified Code(s): D50.9 - Iron deficiency anemia, unspecified (5) Acute and chronic respiratory failure Status: Acute Per the primary team. Etiology seems to be volume overload plus or minus congestive heart failure. Qualifiers: Respiratory failure complication: hypoxia Qualified Code(s): J96.21 - Acute and chronic respiratory failure with hypoxia (7) Hyponatremia Status: Acute She has fluctuating hyponatremia that improved after dialysis yesterday, but still persists at 130. I recommend she follow a fluid restriction, especially a freewater fluid restriction of less than 1.5 L per day. Subjective Principal diagnosis: difficulty in breathing Interval history: Patient seen and examined, at bedside. Denies chest pain or shortness of breath. Denies nausea, vomiting, diarrhea. and both still want patient to go home and not to an ECF. Objective - Vital Signs Vital signs: Vital Signs Temp Pulse Resp BP Pulse Ox 03/12/19 10:58 97.7 F 92 18 99/64 98 03/12/19 06:44 98.8 F 100 18 113/69 100 03/12/19 03:12 98.1 F 74 17 129/78 97 03/11/19 23:49 97.9 F 75 16 127/74 96 08/13/19 19:43 18 91 03/11/19 19:26 97.9 F 65 17 125/74 100 03/11/19 16:11 100.5 F H 78 18 150/86 100 Intake and Output 03/11/19 03/12/19 03/12/19 23:59 07:59 15:59 Intake Total 130 / 830 120 / 120 Balance 130 / -1940 120 / 120 Intake: IV Fluids 100 / 200 Zosyn 3.375 GM In 0.9 % Sodium 100 / 200 Chloride (Mini-Bag +) 100 ML @ 25 mls/hr IVPB Q12HR [facility] Rx#: [id number] Oral 30 / 30 120 / 120 Other: Meal Breakfast Percent of Meal Consumed 40% Stool Size Small Small Stool Consistency liquid soft Stool Color Brown Black # Urine Diapers 1 # Bowel Movements 1 # Bowel Movement Diapers 1 Weight 49.5 kg - General Appearance General appearance: Present: chronically ill, frail EENT: Present: ATNC, hearing intact, vision intact Neck: Present: supple Respiratory: Present: clear Cardiology: Present: no edema, normal S1, normal S2 Dialysis Vascular Access: Venous Catheter (DRSG C/D/I) Gastrointestinal: Present: normoactive bowel sounds, no tenderness, no guarding Integumentary: Present: no rash, warm and dry Neurologic: Present: alert and oriented x3 Musculoskeletal: Present: no deformities, no erythema Psychiatric: Present: mood/affect appropriate, cooperative - Lab 03/12/19 01:27 03/12/19 01:27 Most recent lab results 03/12/19 01:27 Calcium 8.5 L Phosphorus 3.4 Magnesium 1.6 Consult Discharge Plan - Plan Instructions: Chronic Obstructive Pulmonary Disease (DC) Referrals: Patricia Topete [employer] [Advanced Practice Nurse] - 03/17/19 9:00 am (Please follow up as schedule) NONE,PCP [Primary Care Provider] -
== END 2019-03-12 11:33 | disposition home health service (06) | DRG 291 ==
LOC: 2ANU 22:22 → EMEROOARM 22:22 → 2ANU 03-04 02:39 → SUATTDRO 03-04 03:44 → 2ANU 03-08 21:20
PROVIDERS: ADMIT Internal Medicine; ATTEND Family Medicine

== ENCOUNTER 2019-03-20 04:16 | Observation (INO) ==
[2019-03-20] MEDS ORDERED: Ipratropium/Albuterol Neb 3 ML IH ONE (04:24)
[2019-03-20] MEDS ORDERED: Ipratropium/Albuterol Neb 3 ML ONE (04:26)
[2019-03-20 05:29] LABS: Basophils # 0.1 K/mcL (0.0-0.2); Basophils % 0.6 %; Eosinophils # 0.5 K/mcL (0.0-0.6); Hematocrit 33.7 % (35.3-44.9); Hemoglobin 10.4 g/dL (11.5-15.4); Immature Granulocytes % 0.8 % (0-4); Lymphocytes # 2.9 K/mcL (0.6-4.6); Mean Corpuscular HGB Conc 30.9 g/dL (31.6-35.5); Mean Corpuscular Hemoglobin 25.5 pg (28.0-33.3); Mean Corpuscular Volume 82.6 fL (83.0-100.0); Mean Platelet Volume 9.1 fL (9.4-12.4); Monocytes # 0.7 K/mcL (0.0-1.3); Monocytes % 6.4 %; Neutrophils # 6.5 K/mcL (1.6-8.9); Platelet Count 376 K/mcL (140-400); Red Blood Count 4.08 M/mcL (3.82-4.97); Red Cell Distribution Width 19.3 % (11.5-14.5); Segmented Neutrophils % 60.2 %; White Blood Count 10.8 K/mcL (4.3-11.1)
[2019-03-20] MEDS ORDERED: Isovue-370 500 ML BOTTLE IVP ONE (05:48)
[2019-03-20 05:51] LABS: BUN/Creatinine Ratio 3 (6-26); Blood Urea Nitrogen 14 mg/dL (8-23); Calcium 8.8 mg/dL (8.6-10.3); Carbon Dioxide 21 mEq/L (23-29); Chloride 99 mEq/L (98-107); Glucose 121 mg/dL (70-105); Osmolality,Calculated 274 (280-300); Potassium 4.6 mEq/L (3.5-5.1); Sodium 131 mEq/L (136-145); eGFR For African Americans 13 (> 60); eGFR For Non-African Americans 11 (> 60)
[2019-03-20 05:53] LABS: Troponin I < 0.03 ng/mL (< 0.04)
[2019-03-20] MEDS ORDERED: Furosemide 40 MG in 0.9 % Sodium Chloride 50 ML IVPB ONE (06:03)
[2019-03-20] MEDS ORDERED: Furosemide 40 MG/4 ML VIAL IVP ONE (06:21)
[2019-03-20] MEDS ORDERED: *HR* Heparin 10,000 UNIT/10 ML VIAL IV PRN (10:14)
[2019-03-20] MEDS ORDERED: 0.9 % Sodium Chloride 250 ML IVC PRN (10:14)
[2019-03-20] MEDS ORDERED: 0.9 % Sodium Chloride 1,000 ML PRIME SCH (10:15)
[2019-03-20] MEDS ORDERED: Ondansetron 4 MG/2 ML VIAL IVP PRN (12:29)
[2019-03-20] MEDS ORDERED: Naloxone 0.4 MG/ML INJ IVP PRN (12:29)
[2019-03-20] MEDS ORDERED: Ipratropium/Albuterol Neb 3 ML IH PRN (12:31)
[2019-03-20] MEDS: *HR* LORazepam 0.5 MG TABLET PO SCH ×2 (17:44→20:42)
[2019-03-20] MEDS ORDERED: *HR* LORazepam 0.5 MG TABLET PO SCH (21:00)
[2019-03-20] MEDS ORDERED: NON-FORMULARY MEDICATION 1 EACH EACH (Pantoprazole Sodium [Protonix] 40 MG) PO SCH (21:00)
[2019-03-20] MEDS ORDERED: OLANZapine 5 MG TAB.RAPDIS PO SCH (21:00)
[2019-03-20] MEDS: Budesonide/Formoterol 80/4.5 1 PUFF INH IH SCH (22:29)
[2019-03-21 06:39] LABS: Basophils # 0.1 K/mcL (0.0-0.2); Basophils % 1.3 %; Eosinophils # 0.4 K/mcL (0.0-0.6); Eosinophils % 5.4 %; Hemoglobin 9.6 g/dL (11.5-15.4); Immature Granulocytes % 0.6 % (0-4); Lymphocytes # 1.7 K/mcL (0.6-4.6); Lymphocytes % 24.5 %; Mean Corpuscular Hemoglobin 25.3 pg (28.0-33.3); Mean Corpuscular Volume 81.8 fL (83.0-100.0); Mean Platelet Volume 9.6 fL (9.4-12.4); Monocytes # 0.6 K/mcL (0.0-1.3); Monocytes % 8.5 %; Neutrophils # 4.1 K/mcL (1.6-8.9); Platelet Count 255 K/mcL (140-400); Red Blood Count 3.79 M/mcL (3.82-4.97); Red Cell Distribution Width 19.7 % (11.5-14.5); Segmented Neutrophils % 59.7 %; White Blood Count 6.9 K/mcL (4.3-11.1)
[2019-03-21 06:47] LABS: Activated Partial Thrombo Time 29.5 Seconds (26.0-36.0)
[2019-03-21 06:58] LABS: Albumin 3.1 g/dL (3.5-5.7); Albumin/Globulin Ratio 1.3 (1.1-2.2); Bilirubin,Total 0.4 mg/dL (0.3-1.0); Calcium 8.5 mg/dL (8.6-10.3); Chol/HDL Ratio 5.5 (0-4.9); Globulin 2.4 g/dL (2.4-3.5); Magnesium 1.5 mg/dL (1.6-2.6); Phosphorous 2.8 mg/dL (2.7-4.5); Potassium 4.6 mEq/L (3.5-5.1); Total Protein 5.5 g/dL (6.4-8.9)
[2019-03-21 07:48] VITALS: BP 149/90
[2019-03-21] MEDS: *HR* LORazepam 0.5 MG TABLET PO SCH (08:22)
[2019-03-21] MEDS ORDERED: amLODIPine 5 MG TABLET PO SCH (09:00)
[2019-03-21] MEDS ORDERED: Isosorbide MONOnitrate (24 HR) 30 MG TAB.ER.24H PO SCH (09:00)
[2019-03-21] MEDS ORDERED: Aspirin Enteric Coated 81 MG Tablet PO SCH (09:00)
[2019-03-21] MEDS: Budesonide/Formoterol 80/4.5 1 PUFF INH IH SCH (10:32)
== END 2019-03-21 11:38 | disposition home or self-care (01) ==
LOC: 2ANU 04:16 → EMEROOARM 04:16 → SUATTDRO 08:26 → 2ANU 09:00
PROVIDERS: ADMIT Internal Medicine Nephrology; ATTEND Internal Medicine

== ENCOUNTER 2019-03-21 19:19 | Inpatient (IN) ==
[2019-03-21] MEDS ORDERED: Piperacillin/Tazobactam 3.375 GM in 0.9 % Sodium Chloride Mini Bag 100 ML IVPB ONE (19:38)
[2019-03-21 20:10] LABS: Basophils % 0.2 %; Eosinophils % 0.2 %; Hematocrit 27.9 % (35.3-44.9); Immature Granulocytes % 0.7 % (0-4); Lymphocytes # 1.7 K/mcL (0.6-4.6); Lymphocytes % 9.3 %; Mean Corpuscular HGB Conc 32.3 g/dL (31.6-35.5); Mean Corpuscular Hemoglobin 26.2 pg (28.0-33.3); Mean Corpuscular Volume 81.3 fL (83.0-100.0); Mean Platelet Volume 9.4 fL (9.4-12.4); Monocytes # 0.9 K/mcL (0.0-1.3); Monocytes % 4.9 %; Platelet Count 241 K/mcL (140-400); Red Blood Count 3.43 M/mcL (3.82-4.97); Red Cell Distribution Width 19.2 % (11.5-14.5); Segmented Neutrophils % 84.7 %
[2019-03-21 20:16] LABS: Neutrophils # 15.2 K/mcL (1.6-8.9); White Blood Count 17.9 K/mcL (4.3-11.1)
[2019-03-21 20:33] LABS: Alanine Aminotransferase 3 Units/L (7-52); Albumin 3.2 g/dL (3.5-5.7); Albumin/Globulin Ratio 1.3 (1.1-2.2); Alkaline Phosphatase 74 Units/L (34-104); Aspartate Amino Transferase 9 Units/L (13-39); BUN/Creatinine Ratio 4 (6-26); Bilirubin,Direct 0.1 mg/dL (0.0-0.2); Bilirubin,Indirect 0.4 mg/dL (0.0-1.2); Bilirubin,Total 0.5 mg/dL (0.3-1.0); Blood Urea Nitrogen 16 mg/dL (8-23); Calcium 8.5 mg/dL (8.6-10.3); Carbon Dioxide 22 mEq/L (23-29); Chloride 95 mEq/L (98-107); Globulin 2.4 g/dL (2.4-3.5); Glucose 102 mg/dL (70-105); Magnesium 1.3 mg/dL (1.6-2.6); Osmolality,Calculated 269 (280-300); Phosphorous 2.3 mg/dL (2.7-4.5); Potassium 4.9 mEq/L (3.5-5.1); Sodium 129 mEq/L (136-145); Total Protein 5.6 g/dL (6.4-8.9); Troponin I < 0.03 ng/mL (< 0.04); eGFR For African Americans 14 (> 60); eGFR For Non-African Americans 11 (> 60)
[2019-03-22] MEDS ORDERED: Naloxone 0.4 MG/ML INJ IVP PRN (02:55)
[2019-03-22] MEDS ORDERED: Nicotine 21 MG PATCH.TD24 TD PRN (03:04)
[2019-03-22] MEDS ORDERED: *HR* Heparin 5,000 UNIT/ML VIAL IVP PRN ×2 (03:26)
[2019-03-22] MEDS ORDERED: *HR* Heparin 5,000 UNIT/ML VIAL IVP ONE (03:26)
[2019-03-22] MEDS ORDERED: Albuterol 2.5 MG/3 ML NEBULIZER IH PRN (03:36)
[2019-03-22 04:01] LABS: Hemoglobin 8.3 g/dL (11.5-15.4); Mean Corpuscular HGB Conc 31.9 g/dL (31.6-35.5); Mean Corpuscular Hemoglobin 25.9 pg (28.0-33.3); Mean Corpuscular Volume 81.3 fL (83.0-100.0); Mean Platelet Volume 9.2 fL (9.4-12.4); Platelet Count 208 K/mcL (140-400); Red Cell Distribution Width 18.8 % (11.5-14.5); White Blood Count 13.2 K/mcL (4.3-11.1)
[2019-03-22 04:11] LABS: Heparin anti-factor XA UFH 0.02 IU/mL (0.30-0.70); Prothrombin Time 11.7 Seconds (9.4-12.1)
[2019-03-22 04:19] LABS: Calcium 8.2 mg/dL (8.6-10.3); Potassium 4.6 mEq/L (3.5-5.1)
[2019-03-22] MEDS: Heparin 25,000 UNIT/250 ML D5W 25,000 UNIT/250 ML IV.SOLN IVC SCH (04:19)
[2019-03-22] MEDS: Ipratropium/Albuterol Neb 3 ML IH SCH ×4 (06:10→22:47)
[2019-03-22] MEDS ORDERED: Piperacillin/Tazobactam 3.375 GM in 0.9 % Sodium Chloride Mini Bag 100 ML IVPB SCH (08:00)
[2019-03-22] MEDS: predniSONE 20 MG TABLET PO SCH (08:24)
[2019-03-22] MEDS: Piperacillin/Tazobactam 3.375 GM in 0.9 % Sodium Chloride Mini Bag 100 ML IVPB SCH ×2 (08:25→21:06)
[2019-03-22] MEDS ORDERED: *HR* Heparin 10,000 UNIT/10 ML VIAL IV PRN ×2 (08:37)
[2019-03-22] MEDS ORDERED: 0.9 % Sodium Chloride 250 ML IVC PRN (08:37)
[2019-03-22] MEDS ORDERED: 0.9 % Sodium Chloride 1,000 ML PRIME SCH (08:45)
[2019-03-22] MEDS ORDERED: Perflutren Lipid Microsphere 1.3 ML in 0.9 % Sodium Chloride 8.7 ML IVP ONE (11:09)
[2019-03-22] MEDS: DilTIAZem CD (24hr) 120 MG CAP.ER.24H PO SCH (15:09)
[2019-03-22] MEDS ORDERED: Ondansetron ODT 4 MG TAB.RAPDIS PO PRN (17:50)
[2019-03-22] MEDS: OLANZapine 5 MG TAB.RAPDIS PO SCH (21:05)
[2019-03-22] MEDS: amLODIPine 5 MG TABLET PO SCH (21:05)
[2019-03-22] MEDS: Budesonide/Formoterol 80/4.5 1 PUFF INH IH SCH (22:45)
[2019-03-23] MEDS: *HR* LORazepam 0.5 MG TABLET PO PRN ×3 (01:25→21:18)
[2019-03-23] MEDS: Ipratropium/Albuterol Neb 3 ML IH SCH ×4 (04:09→22:08)
[2019-03-23 08:00] LABS: Basophils # 0.1 K/mcL (0.0-0.2); Basophils % 0.5 %; Eosinophils # 0.1 K/mcL (0.0-0.6); Eosinophils % 0.9 %; Hematocrit 29.6 % (35.3-44.9); Hemoglobin 9.2 g/dL (11.5-15.4); Immature Granulocytes % 0.4 % (0-4); Lymphocytes # 2.1 K/mcL (0.6-4.6); Lymphocytes % 19.3 %; Mean Corpuscular HGB Conc 31.1 g/dL (31.6-35.5); Mean Corpuscular Hemoglobin 25.5 pg (28.0-33.3); Mean Platelet Volume 9.6 fL (9.4-12.4); Monocytes # 0.6 K/mcL (0.0-1.3); Monocytes % 5.7 %; Neutrophils # 7.9 K/mcL (1.6-8.9); Platelet Count 223 K/mcL (140-400); Red Blood Count 3.61 M/mcL (3.82-4.97); Red Cell Distribution Width 18.6 % (11.5-14.5); Segmented Neutrophils % 73.2 %; White Blood Count 10.8 K/mcL (4.3-11.1)
[2019-03-23 08:18] LABS: Calcium 8.7 mg/dL (8.6-10.3); Potassium 3.9 mEq/L (3.5-5.1)
[2019-03-23] MEDS: predniSONE 20 MG TABLET PO SCH (08:49)
[2019-03-23] MEDS: Piperacillin/Tazobactam 3.375 GM in 0.9 % Sodium Chloride Mini Bag 100 ML IVPB SCH ×2 (08:49→21:17)
[2019-03-23] MEDS: Isosorbide MONOnitrate (24 HR) 30 MG TAB.ER.24H PO SCH (08:50)
[2019-03-23] MEDS: DilTIAZem CD (24hr) 120 MG CAP.ER.24H PO SCH (08:50)
[2019-03-23] MEDS: amLODIPine 5 MG TABLET PO SCH (08:50)
[2019-03-23] MEDS: Aspirin Enteric Coated 81 MG Tablet PO SCH (08:51)
[2019-03-23] MEDS: Heparin 25,000 UNIT/250 ML D5W 25,000 UNIT/250 ML IV.SOLN IVC SCH (11:05)
[2019-03-23] MEDS: Budesonide/Formoterol 80/4.5 1 PUFF INH IH SCH ×2 (11:29→20:05)
[2019-03-23] MEDS ORDERED: Aminoglycoside Consult 1 EACH MC ONE (14:01)
[2019-03-23] MEDS ORDERED: Furosemide 40 MG/4 ML VIAL IVP ONE (16:20)
[2019-03-23 17:25] LABS: Bilirubin,Urine Negative (Negative); Blood,Urine Negative (Negative); Clarity,Urine Cloudy (Clear); Color,Urine Yellow (Yellow); Glucose,Urine (UA) Normal (Normal); Ketones,Urine Negative (Negative); Leukocyte Esterase,Urine Negative (Negative); Nitrite,Urine Negative (Negative); Protein,Urine 100 mg/dL (Neg-Trace); Specific Gravity,Urine 1.013 (1.010-1.025); Urobilinogen,Urine Normal (Normal)
[2019-03-23 17:26] LABS: Hyaline Casts,Urine None Seen per lpf (None-Few); Squamous Epithelial Cell,Urine Many per lpf (None-Few)
[2019-03-23 17:41] LABS: Bacteria,Urine Few per hpf (None-Few); Renal Epithelial Cells,Urine Few per hpf (None-Few)
[2019-03-23] MEDS: OLANZapine 5 MG TAB.RAPDIS PO SCH (21:15)
[2019-03-24] MEDS: Ipratropium/Albuterol Neb 3 ML IH SCH ×4 (03:15→21:48)
[2019-03-24] MEDS: Heparin 25,000 UNIT/250 ML D5W 25,000 UNIT/250 ML IV.SOLN IVC SCH ×2 (06:44→14:32)
[2019-03-24 06:51] LABS: Hematocrit 24.6 % (35.3-44.9); Hemoglobin 7.8 g/dL (11.5-15.4); Immature Granulocytes % 0.9 % (0-4); Lymphocytes # 0.9 K/mcL (0.6-4.6); Lymphocytes % 14.9 %; Mean Corpuscular HGB Conc 31.7 g/dL (31.6-35.5); Mean Corpuscular Hemoglobin 25.3 pg (28.0-33.3); Mean Corpuscular Volume 79.9 fL (83.0-100.0); Monocytes # 0.3 K/mcL (0.0-1.3); Monocytes % 4.5 %; Neutrophils # 4.6 K/mcL (1.6-8.9); Platelet Count 229 K/mcL (140-400); Red Blood Count 3.08 M/mcL (3.82-4.97); Red Cell Distribution Width 18.3 % (11.5-14.5); Segmented Neutrophils % 79.7 %; White Blood Count 5.8 K/mcL (4.3-11.1)
[2019-03-24 07:00] LABS: Calcium 8.6 mg/dL (8.6-10.3); Potassium 4.6 mEq/L (3.5-5.1)
[2019-03-24] MEDS: Aspirin Enteric Coated 81 MG Tablet PO SCH (08:12)
[2019-03-24] MEDS: *HR* LORazepam 0.5 MG TABLET PO PRN ×3 (08:12→21:10)
[2019-03-24] MEDS: Isosorbide MONOnitrate (24 HR) 30 MG TAB.ER.24H PO SCH (08:15)
[2019-03-24] MEDS: predniSONE 20 MG TABLET PO SCH (08:15)
[2019-03-24] MEDS: DilTIAZem CD (24hr) 120 MG CAP.ER.24H PO SCH (08:15)
[2019-03-24] MEDS: Piperacillin/Tazobactam 3.375 GM in 0.9 % Sodium Chloride Mini Bag 100 ML IVPB SCH ×2 (08:15→21:09)
[2019-03-24] MEDS: Budesonide/Formoterol 80/4.5 1 PUFF INH IH SCH ×2 (10:03→21:48)
[2019-03-24] MEDS: OLANZapine 5 MG TAB.RAPDIS PO SCH (21:09)
[2019-03-25] MEDS: Ipratropium/Albuterol Neb 3 ML IH SCH ×3 (04:04→16:00)
[2019-03-25 06:52] LABS: Hematocrit 22.8 % (35.3-44.9); Hemoglobin 7.5 g/dL (11.5-15.4); Immature Granulocytes % 1.1 % (0-4); Lymphocytes # 0.9 K/mcL (0.6-4.6); Lymphocytes % 12.1 %; Mean Corpuscular HGB Conc 32.9 g/dL (31.6-35.5); Mean Corpuscular Volume 78.9 fL (83.0-100.0); Mean Platelet Volume 10.5 fL (9.4-12.4); Monocytes # 0.3 K/mcL (0.0-1.3); Monocytes % 4.8 %; Neutrophils # 5.8 K/mcL (1.6-8.9); Platelet Count 227 K/mcL (140-400); Red Blood Count 2.89 M/mcL (3.82-4.97); Red Cell Distribution Width 17.4 % (11.5-14.5)
[2019-03-25 07:11] LABS: Calcium 8.1 mg/dL (8.6-10.3); Potassium 4.8 mEq/L (3.5-5.1)
[2019-03-25] MEDS: DilTIAZem CD (24hr) 120 MG CAP.ER.24H PO SCH (07:59)
[2019-03-25] MEDS: predniSONE 20 MG TABLET PO SCH (07:59)
[2019-03-25] MEDS: Aspirin Enteric Coated 81 MG Tablet PO SCH (08:00)
[2019-03-25] MEDS: Isosorbide MONOnitrate (24 HR) 30 MG TAB.ER.24H PO SCH (08:00)
[2019-03-25] MEDS: Piperacillin/Tazobactam 3.375 GM in 0.9 % Sodium Chloride Mini Bag 100 ML IVPB SCH (08:01)
[2019-03-25] MEDS: *HR* LORazepam 0.5 MG TABLET PO PRN (08:07)
[2019-03-25] MEDS ORDERED: 0.9 % Sodium Chloride 250 ML IVC PRN (08:46)
[2019-03-25] MEDS: Budesonide/Formoterol 80/4.5 1 PUFF INH IH SCH (10:30)
[2019-03-25] MEDS ORDERED: Apixaban 5 MG TABLET PO SCH (10:47)
[2019-03-25 14:00] VITALS: BP 144/79
[2019-03-30] MEDS ORDERED: Furosemide 40 MG TABLET PO SCH ×3 (09:00→14:15)
== END 2019-03-25 16:05 | disposition home or self-care (01) | DRG 308 ==
LOC: EMEROOARM 19:19 → 2ANU 19:19 → SUATTDRO 21:21 → 2ANU 21:30
PROVIDERS: ADMIT Family Medicine; ATTEND Internal Medicine

== ENCOUNTER 2019-04-21 03:57 | Observation (INO) ==
[2019-04-21] MEDS ORDERED: methylPREDNISolone 125 MG/2 ML VIAL IVP ONE (04:08)
[2019-04-21] MEDS ORDERED: Ipratropium/Albuterol Neb 3 ML IH ONE (04:08)
[2019-04-21] MEDS ORDERED: Furosemide 40 MG/4 ML VIAL IVP ONE (04:50)
--- NOTE | 2019-04-21 04:54 | Emergency Department Note ---
Disposition Clinical Impression: Hyperkalemia Pulmonary edema Qualifiers: Chronicity: acute Qualified Code(s): J81.0 - Acute pulmonary edema COPD (chronic obstructive pulmonary disease) Qualifiers: COPD type: unspecified COPD Qualified Code(s): J44.9 - Chronic obstructive pulmonary disease, unspecified Disposition: Admitted As Inpatient Condition: Good Time of Disposition: 07:00 SOB HPI - General Chief Complaint: ED Shortness of Breath/Dyspnea Stated Complaint: LEXA Time Seen by Provider: 04/21/19 03:58 Source: patient, family, EMS Mode of arrival: EMS Limitations: no limitations Nursing Notes Reviewed: Yes Vital Signs Reviewed: Yes - History of Present Illness 68-year-old female with a history of end-stage renal disease on dialysis , , Sunday, that reports acute onset of shortness of breath at 2 in the morning. at bedside reports that she was admitted 3 weeks ago for new onset A. fib had her on a portable pulse ox and saw that her heart rate was rapidly changing from a low rate to a high rate and he was worried she was going back into A. fib so he called the squad. Patient has not missed any dialysis recently, her last dialysis session was Sunday and she had gone through the whole appointment and it was not stopped early. Although patient does note that they only pulled 2 L of fluid off and normally the pool of 3. at bedside reports that the patient does still make urine. She has had a cough productive of white sputum for several months. She denies fevers or chills, chest pain. - Related Data Home Medications Medication Instructions Recorded Confirmed Atenolol [Tenormin] 50 mg PO DAILY 10/21/18 04/21/19 Clopidogrel [Plavix] 75 mg PO DAILY 10/21/18 04/21/19 Fluticasone/Salmeterol [Advair 1 puff IH BID 10/21/18 04/21/19 250-50 Diskus] Levothyroxine [Synthroid] 75 mcg PO QAM 10/21/18 04/21/19 Losartan Potassium [Cozaar] 50 mg PO BID 10/21/18 04/21/19 amLODIPine [Norvasc] 2.5 mg PO BID 10/21/18 04/21/19 Albuterol Sulfate [Ventolin Hfa] 2 puff IH Q4H PRN 11/14/18 04/21/19 Aspirin [Adult Aspirin Regimen] 81 mg PO DAILY 11/14/18 04/21/19 Ipratropium/Albuterol Sulfate 3 ml IH TID PRN 11/14/18 04/21/19 [Iprat-Albut 0.5-3(2.5) mg/3 ml] Ferrous Sulfate [Iron] 325 mg PO TU 01/17/19 04/21/19 Isosorbide MONOnitrate (24 HR) 30 mg PO DAILY 01/17/19 04/21/19 [Imdur] OLANZapine [Zyprexa] 2.5 mg PO HS 02/04/19 04/21/19 Ondansetron HCl [Zofran] 4 mg PO Q6H PRN 02/18/19 04/21/19 Midodrine [ProAmatine] 5 mg PO TUTHSA@0800 03/20/19 04/21/19 Promethazine [Phenergan] 25 mg PO Q6HR PRN 03/20/19 04/21/19 LORazepam [Ativan] 0.5 mg PO TID PRN 03/21/19 04/21/19 Previous Rx's Medication Instructions Recorded Pantoprazole Sodium [Protonix] 40 mg PO BID #60 tablet. 02/21/19 Lactose-Reduced Food [Ensure 1 bottle PO TID #90 can 02/22/19 [employer]] Apixaban [Eliquis] 2.5 mg PO BID #60 tablet 03/23/19 Diltiazem CD (24hr) [Cardizem CD] 120 mg PO DAILY #30 cap.er.24h 03/25/19 Furosemide [Lasix] 40 mg PO SUMO@0900 #30 tablet 03/25/19 Allergies Allergy/AdvReac Type Severity Reaction Status Date / Time atorvastatin Allergy See Verified 04/21/19 04:05 Comments doxycycline Allergy Rash Verified 04/21/19 04:05 Sulfa (Sulfonamide Allergy Rash Verified 04/21/19 04:05 Antibiotics) codeine AdvReac Nausea Verified 04/21/19 04:05 hydrocodone [From Vicodin] AdvReac Irritable Verified 04/21/19 04:05 Review of Systems: In addition to that documented in the HPI above, the additional ROS was obtained: Constitutional: Denies fevers or chills Eyes: Denies vision changes ENMT: Denies sore throat CV: Denies chest pain Resp: Reports SOB GI: Denies vomiting or diarrhea Reports constipation : Denies painful urination MSK: Denies recent trauma Skin: Denies new rashes Neuro: Denies new numbness or tingling or weakness Past Medical History - Past Medical History Attestation: Yes The following information was validated with the patient. Medical history: Reports: asthma, cancer, CHF, COPD, coronary artery disease, CVA, dialysis, hyperlipidemia, hypertension, myocardial infarction, other Surgical history: Reports: appendectomy, cholecystectomy Psychiatric history: Reports: anxiety - Social History Smoking Status: Former smoker Smokeless Tobacco Status: No Alcohol use: Reports: none Drug use: Reports: none Physical Exam General: A&O x 3. No acute distress. Thin, cachetic. Head: atraumatic, normocephalic. ENT: No conjunctival injection, no scleral icterus. PERRLA. EOMI. Oropharynx non- erythematous. mucous membranes moist. Neuro: No focal deficits, no speech deficit, no facial droop, mentating well. BUE/BLE Str 5/5. Pulm: decreased lung sounds in bilateral bases, no lung sounds in FLORENCIO, lung sounds difficult to appreciate in posterior castro, diffuse wheezes appreciated in anterior RUL. Cardio: RRR no m/r/g. Chest not tender to palpation. Abd: Soft, non-distended. Normoactive bowel sounds. Non-tender to palpation. No guarding. Non rigid. Extremities: Radial pulses 2+ ira, dorsalis pedis/posterior tibialis 2+ ira. No LE edema. No cyanosis, clubbing. Skin: warm, dry, intact. No rashes. Psych: Appropriate mood and affect. Answers questions appropriately. Cooperative with exam. - General Limitations: no limitations General appearance: alert Course Vital Signs O2 Sat by Pulse Oximetry 88 04/21/19 04:09 Temperature 97.7 F 04/21/19 04:13 Pulse Rate 88 04/21/19 04:13 Respiratory Rate 22 04/21/19 04:28 Blood Pressure 156/93 04/21/19 04:13 O2 Sat by Pulse Oximetry 95 04/21/19 04:28 Oxygen Delivery Oxygen Delivery Nasal Cannula Shortness of Breath/Dyspnea - [facility] Narrative Medical decision making narrative: 68F with ESRD on dialysis [facility] Sat, that developed acute shortness of breath at 0200 this morning. Pt was admitted to the hospital three weeks ago for similar symptoms. Will administer breathing treatments. Suspect admission. CXR showed pulmonary edema. Potassium was elevated at 6.0. Dr. Burr was consulted from nephrology and plans to dialyze this patient in the morning. Pt was admitted to the hospitalist, Dr. Arechiga by my attending, Dr Mary Carmen Calhoun. Pt was stable at time of disposition. Results of the workup including any imaging and/or labwork was shared with the patient at bedside. Patient was given an opportunity to ask questions at bedside and all of their concerns were addressed. Patient verbalized understanding and agreement with plan of care. Pt remained stable while in the department. - Medical Records Medical records reviewed: Yes I reviewed the patient's medical records. - Lab Data Lab results reviewed: Yes I reviewed the patient's lab results. Result diagrams: 04/21/19 05:55 04/21/19 04:42 Lab Results 04/21/19 04/21/19 04/21/19 Range/Units 04:42 04:42 04:42 WBC (4.3-11.1) K/mcL RBC (3.82-4.97) M/mcL Hgb (11.5-15.4) g/dL Hct (35.3-44.9) % MCV (83.0-100.0) fL MCH (28.0-33.3) pg MCHC (31.6-35.5) g/dL RDW (11.5-14.5) % Plt Count (140-400) K/mcL MPV (9.4-12.4) fL Immature Gran % (0-4) % Seg Neutrophils % % Lymphocytes % % Monocytes % % Eosinophils % % Basophils % % Neutrophils # (1.6-8.9) K/mcL Lymphocytes # (0.6-4.6) K/mcL Monocytes # (0.0-1.3) K/mcL Eosinophils # (0.0-0.6) K/mcL Basophils # (0.0-0.2) K/mcL PT 13.1 H (9.4-12.1) Seconds INR 1.2 APTT 32.0 (26.0-36.0) Seconds Sodium 129 L (136-145) mEq/L Potassium 6.0 H (3.5-5.1) mEq/L Chloride 97 L (98-107) mEq/L Carbon Dioxide 21 L (23-29) mEq/L BUN 17 (8-23) mg/dL Creatinine 3.96 H (0.60-1.20) mg/dL Est GFR ( Amer) 14 L (> 60) Est GFR (Non-Af Amer) 11 L (> 60) BUN/Creatinine Ratio 4 L (6-26) Glucose 161 H (70-105) mg/dL Calculated Osmolality 273 L (280-300) Calcium 8.5 L (8.6-10.3) mg/dL Total Bilirubin 0.3 (0.3-1.0) mg/dL Direct Bilirubin 0.1 (0.0-0.2) mg/dL Indirect Bilirubin 0.2 (0.0-1.2) mg/dL AST 24 (13-39) Units/L ALT 8 (7-52) Units/L Alkaline Phosphatase 97 (34-104) Units/L Troponin I < 0.03 (< 0.04) ng/mL B-Natriuretic Peptide 3249 H (Less than 100) pg/mL Serum Total Protein 6.1 L (6.4-8.9) g/dL Albumin 3.2 L (3.5-5.7) g/dL Globulin 2.9 (2.4-3.5) g/dL Albumin/Globulin Ratio 1.1 (1.1-2.2) Lipase 16 (11-82) Units/L Specimen Rejected 04/21/19 04/21/19 Range/Units 04:42 05:55 WBC 13.6 H (4.3-11.1) K/mcL RBC 4.00 (3.82-4.97) M/mcL Hgb 10.4 L (11.5-15.4) g/dL Hct 34.9 L (35.3-44.9) % MCV 87.3 D (83.0-100.0) fL MCH 26.0 L (28.0-33.3) pg MCHC 29.8 L (31.6-35.5) g/dL RDW 19.9 H (11.5-14.5) % Plt Count 346 (140-400) K/mcL MPV 9.5 (9.4-12.4) fL Immature Gran % 0.9 (0-4) % Seg Neutrophils % 84.9 % Lymphocytes % 7.4 % Monocytes % 4.2 % Eosinophils % 2.1 % Basophils % 0.5 % Neutrophils # 11.5 H (1.6-8.9) K/mcL Lymphocytes # 1.0 (0.6-4.6) K/mcL Monocytes # 0.6 (0.0-1.3) K/mcL Eosinophils # 0.3 (0.0-0.6) K/mcL Basophils # 0.1 (0.0-0.2) K/mcL PT (9.4-12.1) Seconds INR APTT (26.0-36.0) Seconds Sodium (136-145) mEq/L Potassium (3.5-5.1) mEq/L Chloride (98-107) mEq/L Carbon Dioxide (23-29) mEq/L BUN (8-23) mg/dL Creatinine (0.60-1.20) mg/dL Est GFR ( Amer) (> 60) Est GFR (Non-Af Amer) (> 60) BUN/Creatinine Ratio (6-26) Glucose (70-105) mg/dL Calculated Osmolality (280-300) Calcium (8.6-10.3) mg/dL Total Bilirubin (0.3-1.0) mg/dL Direct Bilirubin (0.0-0.2) mg/dL Indirect Bilirubin (0.0-1.2) mg/dL AST (13-39) Units/L ALT (7-52) Units/L Alkaline Phosphatase (34-104) Units/L Troponin I (< 0.04) ng/mL B-Natriuretic Peptide (Less than 100) pg/mL Serum Total Protein (6.4-8.9) g/dL Albumin (3.5-5.7) g/dL Globulin (2.4-3.5) g/dL Albumin/Globulin Ratio (1.1-2.2) Lipase (11-82) Units/L Specimen Rejected MCV Delta - Radiology Data Radiology results reviewed: Yes I reviewed the patient's radiology results. Chest X-Ray 04/21/19 04:25 IMPRESSION: Severe pulmonary edema with small bilateral effusions. D/ / Shree Zurita / Shree Zurita Interpreting Provider: Shree Zurita - EKG Data EKG attestation: Yes I reviewed and interpreted this EKG. EKG results narrative: Heart rate 92, rhythm sinus, axis normal. Intervals within normal limits. Minimal ST depression seen in leads V4 through V6. Previous EKG dated 03/21/2019 shows atrial fibrillation and left ventricular hypertrophy which is not appreciated and current EKG.
[2019-04-21 05:14] LABS: INR 1.2; Prothrombin Time 13.1 Seconds (9.4-12.1)
[2019-04-21 05:24] LABS: Alanine Aminotransferase 8 Units/L (7-52); Albumin 3.2 g/dL (3.5-5.7); Albumin/Globulin Ratio 1.1 (1.1-2.2); Alkaline Phosphatase 97 Units/L (34-104); Aspartate Amino Transferase 24 Units/L (13-39); BUN/Creatinine Ratio 4 (6-26); Bilirubin,Direct 0.1 mg/dL (0.0-0.2); Bilirubin,Indirect 0.2 mg/dL (0.0-1.2); Bilirubin,Total 0.3 mg/dL (0.3-1.0); Blood Urea Nitrogen 17 mg/dL (8-23); Calcium 8.5 mg/dL (8.6-10.3); Carbon Dioxide 21 mEq/L (23-29); Chloride 97 mEq/L (98-107); Globulin 2.9 g/dL (2.4-3.5); Glucose 161 mg/dL (70-105); Lipase 16 Units/L (11-82); Osmolality,Calculated 273 (280-300); Sodium 129 mEq/L (136-145); Total Protein 6.1 g/dL (6.4-8.9); Troponin I < 0.03 ng/mL (< 0.04); eGFR For African Americans 14 (> 60); eGFR For Non-African Americans 11 (> 60)
[2019-04-21 06:20] LABS: Basophils # 0.1 K/mcL (0.0-0.2); Basophils % 0.5 %; Eosinophils # 0.3 K/mcL (0.0-0.6); Eosinophils % 2.1 %; Hematocrit 34.9 % (35.3-44.9); Hemoglobin 10.4 g/dL (11.5-15.4); Immature Granulocytes % 0.9 % (0-4); Lymphocytes % 7.4 %; Mean Corpuscular HGB Conc 29.8 g/dL (31.6-35.5); Mean Corpuscular Volume 87.3 fL (83.0-100.0); Mean Platelet Volume 9.5 fL (9.4-12.4); Monocytes # 0.6 K/mcL (0.0-1.3); Monocytes % 4.2 %; Neutrophils # 11.5 K/mcL (1.6-8.9); Platelet Count 346 K/mcL (140-400); Red Cell Distribution Width 19.9 % (11.5-14.5); Segmented Neutrophils % 84.9 %; White Blood Count 13.6 K/mcL (4.3-11.1)
--- NOTE | 2019-04-21 06:34 | Emergency Department Note ---
Disposition Clinical Impression: Hyperkalemia Pulmonary edema Qualifiers: Chronicity: acute Qualified Code(s): J81.0 - Acute pulmonary edema COPD (chronic obstructive pulmonary disease) Qualifiers: COPD type: unspecified COPD Qualified Code(s): J44.9 - Chronic obstructive pulmonary disease, unspecified Disposition: Admitted As Inpatient Condition: Good Referrals: Patricia Topete VENDING MACHINE SERVICER [Primary Care Provider] - Forms: ED Satisfaction Letter Time of Disposition: 06:35 General Adult HPI - General Chief complaint: ED Shortness of Breath/Dyspnea Stated complaint: LEXA Time Seen by Provider: 04/21/19 03:58 Source: patient, family, EMS Mode of arrival: EMS Limitations: no limitations - History of Present Illness Pain Scale: 0 - Related Data Home Medications Medication Instructions Recorded Confirmed Atenolol [Tenormin] 50 mg PO DAILY 10/21/18 04/21/19 Clopidogrel [Plavix] 75 mg PO DAILY 10/21/18 04/21/19 Fluticasone/Salmeterol [Advair 1 puff IH BID 10/21/18 04/21/19 250-50 Diskus] Levothyroxine [Synthroid] 75 mcg PO QAM 10/21/18 04/21/19 Losartan Potassium [Cozaar] 50 mg PO BID 10/21/18 04/21/19 amLODIPine [Norvasc] 2.5 mg PO BID 10/21/18 04/21/19 Albuterol Sulfate [Ventolin Hfa] 2 puff IH Q4H PRN 11/14/18 04/21/19 Aspirin [Adult Aspirin Regimen] 81 mg PO DAILY 11/14/18 04/21/19 Ipratropium/Albuterol Sulfate 3 ml IH TID PRN 11/14/18 04/21/19 [Iprat-Albut 0.5-3(2.5) mg/3 ml] Ferrous Sulfate [Iron] 325 mg PO TU 01/17/19 04/21/19 Isosorbide MONOnitrate (24 HR) 30 mg PO DAILY 01/17/19 04/21/19 [Imdur] OLANZapine [Zyprexa] 2.5 mg PO HS 02/04/19 04/21/19 Ondansetron HCl [Zofran] 4 mg PO Q6H PRN 02/18/19 04/21/19 Midodrine [ProAmatine] 5 mg PO TUTHSA@0800 03/20/19 04/21/19 Promethazine [Phenergan] 25 mg PO Q6HR PRN 03/20/19 04/21/19 LORazepam [Ativan] 0.5 mg PO TID PRN 03/21/19 04/21/19 Previous Rx's Medication Instructions Recorded Pantoprazole Sodium [Protonix] 40 mg PO BID #60 tablet. 02/21/19 Lactose-Reduced Food [Ensure 1 bottle PO TID #90 can 02/22/19 Active [employer]] Apixaban [Eliquis] 2.5 mg PO BID #60 tablet 03/23/19 Diltiazem CD (24hr) [Cardizem CD] 120 mg PO DAILY #30 cap.er.24h 03/25/19 Furosemide [Lasix] 40 mg PO SUMO@0900 #30 tablet 03/25/19 Allergies Allergy/AdvReac Type Severity Reaction Status Date / Time atorvastatin Allergy See Verified 04/21/19 04:05 Comments doxycycline Allergy Rash Verified 04/21/19 04:05 Sulfa (Sulfonamide Allergy Rash Verified 04/21/19 04:05 Antibiotics) codeine AdvReac Nausea Verified 04/21/19 04:05 hydrocodone [From Vicodin] AdvReac Irritable Verified 04/21/19 04:05 Past Medical History - Past Medical History Medical history: Reports: asthma, cancer, CHF, COPD, coronary artery disease, CVA, dialysis, hyperlipidemia, hypertension, myocardial infarction, other Surgical history: Reports: appendectomy, cholecystectomy Psychiatric history: Reports: anxiety - Social History Smoking Status: Former smoker Smokeless Tobacco Status: No Alcohol use: Reports: none Drug use: Reports: none Physical Exam - General Limitations: no limitations General appearance: alert Course - Consultations Consultation #1: discussed case with Dr. peña and he accepts patient to medicine service Time: 06:41 Vital Signs O2 Sat by Pulse Oximetry 88 04/21/19 04:09 Temperature 97.7 F 04/21/19 04:13 Pulse Rate 88 04/21/19 04:13 Respiratory Rate 22 04/21/19 04:28 Blood Pressure 156/93 04/21/19 04:13 O2 Sat by Pulse Oximetry 95 04/21/19 04:28 Oxygen Delivery Oxygen Delivery Nasal Cannula Medical Decision Making - Lab Data Result diagrams: 04/21/19 05:55 04/21/19 04:42 Lab Results 04/21/19 04/21/19 04/21/19 Range/Units 04:42 04:42 04:42 WBC (4.3-11.1) K/mcL RBC (3.82-4.97) M/mcL Hgb (11.5-15.4) g/dL Hct (35.3-44.9) % MCV (83.0-100.0) fL MCH (28.0-33.3) pg MCHC (31.6-35.5) g/dL RDW (11.5-14.5) % Plt Count (140-400) K/mcL MPV (9.4-12.4) fL Immature Gran % (0-4) % Seg Neutrophils % % Lymphocytes % % Monocytes % % Eosinophils % % Basophils % % Neutrophils # (1.6-8.9) K/mcL Lymphocytes # (0.6-4.6) K/mcL Monocytes # (0.0-1.3) K/mcL Eosinophils # (0.0-0.6) K/mcL Basophils # (0.0-0.2) K/mcL PT 13.1 H (9.4-12.1) Seconds INR 1.2 APTT 32.0 (26.0-36.0) Seconds Sodium 129 L (136-145) mEq/L Potassium 6.0 H (3.5-5.1) mEq/L Chloride 97 L (98-107) mEq/L Carbon Dioxide 21 L (23-29) mEq/L BUN 17 (8-23) mg/dL Creatinine 3.96 H (0.60-1.20) mg/dL Est GFR ( Amer) 14 L (> 60) Est GFR (Non-Af Amer) 11 L (> 60) BUN/Creatinine Ratio 4 L (6-26) Glucose 161 H (70-105) mg/dL Calculated Osmolality 273 L (280-300) Calcium 8.5 L (8.6-10.3) mg/dL Total Bilirubin 0.3 (0.3-1.0) mg/dL Direct Bilirubin 0.1 (0.0-0.2) mg/dL Indirect Bilirubin 0.2 (0.0-1.2) mg/dL AST 24 (13-39) Units/L ALT 8 (7-52) Units/L Alkaline Phosphatase 97 (34-104) Units/L Troponin I < 0.03 (< 0.04) ng/mL B-Natriuretic Peptide 3249 H (Less than 100) pg/mL Serum Total Protein 6.1 L (6.4-8.9) g/dL Albumin 3.2 L (3.5-5.7) g/dL Globulin 2.9 (2.4-3.5) g/dL Albumin/Globulin Ratio 1.1 (1.1-2.2) Lipase 16 (11-82) Units/L Specimen Rejected 04/21/19 04/21/19 Range/Units 04:42 05:55 WBC 13.6 H (4.3-11.1) K/mcL RBC 4.00 (3.82-4.97) M/mcL Hgb 10.4 L (11.5-15.4) g/dL Hct 34.9 L (35.3-44.9) % MCV 87.3 D (83.0-100.0) fL MCH 26.0 L (28.0-33.3) pg MCHC 29.8 L (31.6-35.5) g/dL RDW 19.9 H (11.5-14.5) % Plt Count 346 (140-400) K/mcL MPV 9.5 (9.4-12.4) fL Immature Gran % 0.9 (0-4) % Seg Neutrophils % 84.9 % Lymphocytes % 7.4 % Monocytes % 4.2 % Eosinophils % 2.1 % Basophils % 0.5 % Neutrophils # 11.5 H (1.6-8.9) K/mcL Lymphocytes # 1.0 (0.6-4.6) K/mcL Monocytes # 0.6 (0.0-1.3) K/mcL Eosinophils # 0.3 (0.0-0.6) K/mcL Basophils # 0.1 (0.0-0.2) K/mcL PT (9.4-12.1) Seconds INR APTT (26.0-36.0) Seconds Sodium (136-145) mEq/L Potassium (3.5-5.1) mEq/L Chloride (98-107) mEq/L Carbon Dioxide (23-29) mEq/L BUN (8-23) mg/dL Creatinine (0.60-1.20) mg/dL Est GFR ( Amer) (> 60) Est GFR (Non-Af Amer) (> 60) BUN/Creatinine Ratio (6-26) Glucose (70-105) mg/dL Calculated Osmolality (280-300) Calcium (8.6-10.3) mg/dL Total Bilirubin (0.3-1.0) mg/dL Direct Bilirubin (0.0-0.2) mg/dL Indirect Bilirubin (0.0-1.2) mg/dL AST (13-39) Units/L ALT (7-52) Units/L Alkaline Phosphatase (34-104) Units/L Troponin I (< 0.04) ng/mL B-Natriuretic Peptide (Less than 100) pg/mL Serum Total Protein (6.4-8.9) g/dL Albumin (3.5-5.7) g/dL Globulin (2.4-3.5) g/dL Albumin/Globulin Ratio (1.1-2.2) Lipase (11-82) Units/L Specimen Rejected MCV Delta Attestation Statement - Attestation Attestation: I reviewed the residents documentation and agree with the residents assessment and plan of care. I have personally had face to face time with the patient. (Brief History, Brief Exam, and MDM) I personally supervised and was present for the wheatley/critical portions of the following procedures completed by the resident: EKG 68 year old kierra presents to the ED with complaints f dyspnea wihtout hypoxia and is a dialysis paatinet with Dr. Han on TRSat. She apears fluid overloaded and has a potassium of 6.0 without acute EKG changes in addition to wheezes bilaterlaly on lkung which appear to be pulmonary edema. We have treated her with breathing treatments and I have discussed case with Dr. Burr and she plans on doing dialysis on her this morning after she is admitted to the floors to medicine
--- NOTE | 2019-04-21 07:24 | Internal Med History&Physical ---
Date of Encounter: 04/21/19 Time of Encounter: 07:15 Internal Medicine - H&P: HPI Admitted From: Home Plans for Post Hospital Care: Home History of present illness: Ms. Weeks is a 68 year old female past medical history of GERD, ESRD, systolic CHF with EF of 40% and global systolic dysfunction on 03/22/19, COPD with chronic respiratory failure on 2 L home oxygen, coronary artery disease, history of lung cancer status post left upper lobe resection, who was recently diagnosed with new-onset A. fib and was started on Eliquis and Cardizem on last discharge came in complaining of shortness of breath and feeling weak. She is compliant with h er dialysis with last dialysis on Sunday where 2 L were taken out instead of 3. She has been short of breath since November of this year and had many hospitalizations and was started on dialysis. Patient's brought her in because of her shortness of breath and her oxygen being 79% at home and concern of her on and off high heart rate. She mentions he is compliant with her renal diet and fluid restriction. They reported Dr. Lou ordered a CT for her aortic aneurysm which was pending. She denies any fevers chills nausea vomiting or diarrhea at home. She denied any new skin rashes. Denies any sick contacts, denies any upper respiratory symptoms including runny nose sore throat. She has noticed mild increase in her cough and clear sputum over the last few days. She denied any palpitations or lightheadedness. Lower extremity swelling is more or less at baseline has been reported. She still smokes on and off but it has decreased. Patient is able to ambulating with walker. Denies any falls. Denies any bloody sputum, urine or stool. Patient was evaluated in the ER and was found to have potassium of 6, sodium 129, BNP 3006 which is usual for her, WBC of 13.6. EKG showed sinus rhythm without any peaked T waves. Patient was given 125 mg Solu-Medrol, bronchodilators and 40 mg of Lasix. Chest x-ray showed severe pulmonary edema with bilateral effusions. Admission was requested for hyperkalemia and fluid overload with acute hypoxic respiratory failure Patient was evaluated bedside in ER. She is saturating 100% on 4 L. Appears very tired. She denies any chest pain. Breathing minimally improved. Does not appear in respiratory distress. Denies any abdominal pain. Says she makes about 4 times urinary day roughly. Denies any skin rashes. Discussed allergy which she did not remember completely but remembered she had reaction to sulfa and codeine which she is not able to remember. Discussed CODE STATUS and they did not want any resuscitative measures has it would" not work for her and brake her ribs" Past Med Surg Social Fam HX - Past Medical History Medical history: cancer, CHF, COPD, coronary artery disease, CVA, dialysis, hyperlipidemia, hypertension, myocardial infarction, other Additional medical history: lung cancer, FLORENCIO removed Psychiatric history: anxiety - Past Surgical History Surgical History: appendectomy, cholecystectomy Additional surgical history: left upper lobe removed. 3 cardiac stents. dialysis port right upper chest - Social History Smoking Status: Current every day smoker Smokeless Tobacco Status: No Alcohol use: none Drug use: none - Family History Mother Adopted: No Living Status: Hx Family Cardiac Disorders: Yes (CHF) Father Adopted: No Living Status: Hx Family Cardiac Disorders: Yes (CHF) Hx Family Respiratory Disorders: Yes (emphesema) Hx Family Neuromuscular Disorders: Yes (Parkinsons) Internal Medicine - H&P: Meds Atenolol [Tenormin] 50 mg PO DAILY 10/21/18 [History] Clopidogrel [Plavix] 75 mg PO DAILY 10/21/18 [History] Fluticasone/Salmeterol [Advair 250-50 Diskus] 1 puff IH BID 10/21/18 [History] Levothyroxine [Synthroid] 75 mcg PO QAM 10/21/18 [History] Losartan Potassium [Cozaar] 50 mg PO BID 10/21/18 [History] amLODIPine [Norvasc] 2.5 mg PO BID 10/21/18 [History] Albuterol Sulfate [Ventolin Hfa] 2 puff IH Q4H PRN 11/14/18 [History] Aspirin [Adult Aspirin Regimen] 81 mg PO DAILY 11/14/18 [History] Ipratropium/Albuterol Sulfate [Iprat-Albut 0.5-3(2.5) mg/3 ml] 3 ml IH TID PRN 11/14/18 [History] Ferrous Sulfate [Iron] 325 mg PO TU 01/17/19 [History] Isosorbide MONOnitrate (24 HR) [Imdur] 30 mg PO DAILY 01/17/19 [History] OLANZapine [Zyprexa] 2.5 mg PO HS 02/04/19 [History] Ondansetron HCl [Zofran] 4 mg PO Q6H PRN 02/18/19 [History] Pantoprazole Sodium [Protonix] 40 mg PO BID #60 tablet. 02/21/19 [Rx] Lactose-Reduced Food [Recensus] 1 bottle PO TID #90 can 02/22/19 [Rx] Midodrine [ProAmatine] 5 mg PO TUTHSA@0800 03/20/19 [History] Promethazine [Phenergan] 25 mg PO Q6HR PRN 03/20/19 [History] LORazepam [Ativan] 0.5 mg PO TID PRN 03/21/19 [History] Apixaban [Eliquis] 2.5 mg PO BID #60 tablet 03/23/19 [Rx] Diltiazem CD (24hr) [Cardizem CD] 120 mg PO DAILY #30 cap.er.24h 03/25/19 [Rx] Furosemide [Lasix] 40 mg PO SUMO@0900 #30 tablet 03/25/19 [Rx] Allergy/AdvReac Type Severity Reaction Status Date / Time atorvastatin Allergy See Verified 04/21/19 04:05 Comments doxycycline Allergy Rash Verified 04/21/19 04:05 Sulfa (Sulfonamide Allergy Rash Verified 04/21/19 04:05 Antibiotics) codeine AdvReac Nausea Verified 04/21/19 04:05 hydrocodone [From Vicodin] AdvReac Irritable Verified 04/21/19 04:05 All Systems PM: A 10-system review of systems was performed and is negative for pertinent findings except as documented above in the HPI. - Constitutional Vitals: Temp Pulse Resp BP Pulse Ox 97.7 F 88 19 154/78 99 04/21/19 04:13 04/21/19 06:57 04/21/19 06:57 04/21/19 06:57 04/21/19 06:57 Exam: Constitutional: Vitals as noted. Conversant. No Apparent Distress. appears tired Eyes : Sclera white, conjunctiva clear, no lid lag, PEARLA. ENT : Grossly normal hearing. Respiratory : Decrease air entry at base, crackles to mid lung castro. No accessory muscle use, rhonchi or wheezes Cardiovascular : RRR, +S1, +S2. no murmur, gallop, rubs. No chest wall tenderness GI/Abdominal : Soft, Non-tender, Non-distended, normal bowel sounds, no peritoneal signs. no orgenomegaly or mass appreciated. no hernia. Musculoskeletal: no deformity noted. 2+ edema , warm extremities, pulses palpable and symmetrical in UE/LE. no calf tenderness. Neurological: AO X3, CN II-XII grossly intact, grossly normal motor and sensory exam. Skin: No skin rash, lesions or ulcers noted. Pych: AOx3. Internal Med - H&P Results - Labs CBC & Chem 7: 04/21/19 05:55 04/21/19 04:42 Labs: Short CBC 04/21/19 Range/Units 05:55 WBC 13.6 H (4.3-11.1) K/mcL Hgb 10.4 L (11.5-15.4) g/dL Hct 34.9 L (35.3-44.9) % Plt Count 346 (140-400) K/mcL Neutrophils # 11.5 H (1.6-8.9) K/mcL BMP 04/21/19 04:42 Sodium 129 L Potassium 6.0 H Chloride 97 L Carbon Dioxide 21 L BUN 17 Creatinine 3.96 H Glucose 161 H Calcium 8.5 L Cardiac Enzymes 04/21/19 Range/Units 04:42 Troponin I < 0.03 (< 0.04) ng/mL Liver Function 04/21/19 Range/Units 04:42 Total Bilirubin 0.3 (0.3-1.0) mg/dL Direct Bilirubin 0.1 (0.0-0.2) mg/dL AST 24 (13-39) Units/L ALT 8 (7-52) Units/L Alkaline Phosphatase 97 (34-104) Units/L Albumin 3.2 L (3.5-5.7) g/dL - EKG Data -: EKG Interpreted by Myself EKG shows normal: sinus rhythm - Impressions ITS Impressions Chest X-Ray 04/21/19 04:25 IMPRESSION: Severe pulmonary edema with small bilateral effusions. D/ / Shree Zurita / Shree Zurita Interpreting Provider: Shree Zurita - Assessment and Plan (1) Dyspnea Current Visit: No Status: Acute Assessment and plan: Patient with respiratory distress with hypoxia at home with signs of pulmonary edema. Likely due to fluid overload due to her underlying end-stage renal disease and CHF. Unclear precipitating event if any at this point. Patient would be dialyzed today for nephrology. Qualifiers: Dyspnea type: acute respiratory distress Qualified Code(s): R06.03 - Acute respiratory distress (2) Hyperkalemia Current Visit: Yes Status: Acute Assessment and plan: Likely secondary to her end-stage renal disease. Patient received Lasix. Patient will be dialyzed today. Repeat trending down. No EKG changes. (3) Pulmonary edema Current Visit: Yes Status: Acute Assessment and plan: Likely due to underlying CHF and end-stage renal disease. Resume patient's home Lasix. Patient would be dialyzed per nephrology for volume management. Qualifiers: Chronicity: acute Qualified Code(s): J81.0 - Acute pulmonary edema (4) COPD (chronic obstructive pulmonary disease) Current Visit: Yes Status: Chronic Assessment and plan: Continue patient's home inhaler was confirmed. Patient mentioned recently Advair was changed to something else instead not able to remember. Continue supplemental oxygen at 2 L. Continue when necessary DuoNeb and albuterol. Qualifiers: COPD type: unspecified COPD Qualified Code(s): J44.9 - Chronic obstructive pulmonary disease, unspecified (5) Acute and chronic respiratory failure with hypoxia Current Visit: No Status: Acute Assessment and plan: Likely secondary to pulmonary edema. Treatment as above (6) Congestive heart failure Current Visit: No Status: Acute Assessment and plan: Patient has decreased extension fraction with last echocardiogram of 40% with decreased global systolic function. Patient had plan for ischemic evaluation on last discharge as outpatient which has not happened yet. Currently patient with fluid overload which will be managed with dialysis and Lasix. Qualifiers: Heart failure type: systolic Heart failure chronicity: unspecified Qualified Code(s): I50.20 - Unspecified systolic (congestive) heart failure (7) ESRD (end stage renal disease) on dialysis Current Visit: No Status: Acute Assessment and plan: Patient gets dialysis on Sunday with right sided permacath Dialysis session was 2 hours on Sunday instead of 3 one day took 2 kg off her. Plan for dialysis today given hyperkalemia and pulmonary edema with acute respiratory failure. (8) Goals of care, counseling/discussion Current Visit: No Status: Acute Assessment and plan: Discussed goals of care and patient does not want any initiation of CPR but continues to want medical treatment. (9) Hyponatremia Current Visit: No Status: Acute Assessment and plan: Likely hypervolemic hyponatremia Patient will be dialyzed and continued on her home Lasix (10) Nicotine use disorder Current Visit: No Status: Acute (11) Volume overload Current Visit: No Status: Acute Assessment and plan: As above Qualifiers: Hypervolemia type: unspecified Qualified Code(s): E87.70 - Fluid overload, unspecified (12) CAD (coronary artery disease) Current Visit: No Status: Chronic Assessment and plan: Patient has known history of CAD, has occluded RCA with collateral from left coronaries and PCI of diagonal with patent LAD. Recently had decreased ejection fraction notice on her last admissions and had plan for outpatient ischemic workup Currently patient without any chest pain or ischemic EKG changes and troponins a re normal. Continue patient home aspirin, Plavix, and Imdur. We will start patient on metoprolol instead of nausea and Cardizem given her CHF Unclear whether patient on statin at home. Atorvastatin mentioned as an allergy however patient is not able to remember reaction exactly. We will start patient on rosuvastatin for now and confirmed with pharmacy. Qualifiers: Coronary Disease-Associated Artery/Lesion type: [place] artery [place] vs. transplanted heart: [place] heart Associated angina: without angina Qualified Code(s): I25.10 - Atherosclerotic heart disease of [place] coronary artery without angina pectoris (13) HTN (hypertension) Current Visit: No Status: Chronic Qualifiers: Hypertension type: essential hypertension Qualified Code(s): I10 - Essenti al (primary) hypertension (14) Hypothyroidism Current Visit: No Status: Chronic Assessment and plan: Continue home levothyroxine Qualifiers: Hypothyroidism type: unspecified Qualified Code(s): E03.9 - Hypothyroidism, unspecified (15) Reflux esophagitis Current Visit: No Status: Chronic Assessment and plan: Continue home PPI (16) Hyperkalemia Current Visit: No Status: Resolved Assessment and plan: Likely secondary to ESRD. Patient will be dialyzed today. (17) Afib Current Visit: Yes Status: Acute Assessment and plan: Patient currently in sinus rhythm. Will continue with home Eliquis for now. She was started on Cardizem per cardiology recommendation on her last admission. She was continued on atenolol. However given her systolic CHF and recurrent fluid overload we will hold Cardizem for now and use metoprolol for rate control. We will hold atenolol as well. Patient started on Eliquis however has not had GI workup but her hemoglobin remained stable. No signs of bleeding. She mentions he does not want any blood products if she develops any bleeding. Qualifiers: Atrial fibrillation type: paroxysmal Qualified Code(s): I48.0 - Paroxysmal atrial fibrillation (18) DVT prophylaxis Current Visit: No Status: Chronic Assessment and plan: On Eliquis - Time Spent With Patient Total time spent is greater than 50% in coordination of care (as documented) at patient's floor/unit and/or counseling patient:
[2019-04-21] MEDS ORDERED: 0.9 % Sodium Chloride 1,000 ML ONE (08:00)
[2019-04-21 08:05] LABS: Calcium 8.9 mg/dL (8.6-10.3); Potassium 5.7 mEq/L (3.5-5.1)
[2019-04-21] MEDS ORDERED: Naloxone 0.4 MG/ML INJ IVP PRN (08:08)
[2019-04-21] MEDS ORDERED: Ipratropium/Albuterol Neb 3 ML IH PRN (08:11)
[2019-04-21] MEDS ORDERED: *HR* LORazepam 0.5 MG TABLET PO PRN (08:11)
[2019-04-21] MEDS ORDERED: *HR* Heparin 10,000 UNIT/10 ML VIAL IV PRN ×2 (08:50)
[2019-04-21] MEDS ORDERED: 0.9 % Sodium Chloride 250 ML IVC PRN (08:50)
[2019-04-21] MEDS ORDERED: 0.9 % Sodium Chloride 1,000 ML PRIME SCH (09:00)
[2019-04-21] MEDS ORDERED: Furosemide 40 MG TABLET PO SCH (09:00)
[2019-04-21] MEDS ORDERED: NON-FORMULARY MEDICATION 1 EACH EACH (Pantoprazole Sodium [Protonix] 40 MG) PO SCH (09:00)
[2019-04-21] MEDS ORDERED: NON-FORMULARY MEDICATION 1 EACH EACH (Losartan Potassium [Cozaar] 50 MG) PO SCH (09:00)
[2019-04-21] MEDS: Budesonide/Formoterol 80/4.5 1 PUFF INH IH SCH ×2 (09:48→20:35)
--- NOTE | 2019-04-21 10:27 | Nephrology Consult Note ---
<Serenity Valdez - Last Filed: 04/21/19 13:22> Date of Encounter: 04/21/19 Time of Encounter: 10:10 Assessment and Plan (1) ESRD (end stage renal disease) on dialysis Status: Acute Hx ESRD with hemodialysis TTS at [facility] [place] vial right chest wall permacath since 10/2018 Presents with fluid overload, pulmonary edema and acute on chronic hypoxic respiratory failure Begin hemodialyisis with goal of 2-3 kg Follow up portable CXR to reevaluate pulmonary edema once HD completed Some difficulty noted with permacath, consider to monitor and may possibly need to be replaced Further encourage adherence to diet and fluid restriction. Consider extra round of ultrafiltration tomorrow (2) Pulmonary edema Status: Acute XR chest reveals severe bilateral pulmonary edema s/p lasix Suspect secondary to ESRD with noncompliance with diet and fluid restriction as well as reduced ejection heart failure Currently undergoing HD with consideration for UF tomorrow Will repeat CXR once HD completed today Consider increasing lasix schedule as she is currently on lasix Sunday and Mondays. Qualifiers: Chronicity: acute Qualified Code(s): J81.0 - Acute pulmonary edema (3) Volume overload Status: Acute Secondary to ESRD and reduced ejection fraction heart failure See above for management Qualifiers: Hypervolemia type: unspecified Qualified Code(s): E87.70 - Fluid overload, unspecified (4) Hyperkalemia Status: Acute Elevated on admission at 6, downtrended slightly to 5.7 Continue with HD Encourage renal diet compliance (5) Hyponatremia Status: Acute Chronic and at baseline Secondary to ESRD and fluid overload Continue to monitor History of Present Illness - Reason for Consult Consult date: 04/21/19 end stage renal disease - Chief Complaint Dyspnea - History of Present Illness Clemencia Weeks is a 68 y/o female who presented with dyspnea. She has a PMH of ESRD on TTS dialysis at [facility] [place] using right chest wall permacath. She was previously determined to not be a candidate for fistula. She follows with [facility]. Other PMH includes reduced ejection fraction heart failure, atrial fibrillation, COPD on 2L O2, CAD s/p stenting x3, CVA, HLD, HTN, GERD and history of lung cancer s/p left upper lobe resection. She has required hemodialysis since October 2018 after having a contrast injury from [facility] in late September. She is a current smoker, denies ETOH or illicits, declines blood products for sabianism beliefs and lives with her who helps manage her medical care. She states that she went to hemodialysis on Sunday and states that they were only able to remove 2 kg as opposed to the usual 3 kg. She states that she felt run down on Sunday and required significant amount of rest. She admits to taking her lasix as prescribed on Sunday and she is able to urinate 4-5 times per day. She has not been compliant with renal diet, admits to eating frozen pepperoni pizza last night. She states that she has never had a problem with her sodium in the past and didn't think that it would effect her. This morning she became severely short of breath with spO2 measured at 79% at home. She states that she continued to be short of breath while on her baseline 2L O2 supplementation. They proceeded to the ED. In the ED, she was placed on 4 L NC, labs were significant for leukocytosis at 13.6, hgb 10.4, Na 128 which is around her baseline, K at 6 which is elevated from baseline of around 4.6, Cr at 4.09 which is usually around 3-4. BNP was elevated at 3249 which is at her baseline. An EKG was performed which revealed normal sinus rhythm. A chest XR was obtained which showed severe pulmonary edema with bilateral effusions. She was given 125 mg solumedrol, 40 mg IV lasix and bronchodilators and admitted for fluid overload and hyperkalemia. On my assessment, she is preparing for hemodialysis. She states that she continues to feel short of breath despite oxygen supplementation and diuresis. She states that she has some lightheadedness, weakness, decreased appetite and edema in her ankles. She denies fever, chills, nausea, vomiting, chest pain, palpitations, abdominal pain, diarrhea, constipation, melena, hematochezia, dysuria, hematuria, rash or skin lesions. She is concerned about CT chest that was ordered by Dr. Lou to follow thoracic aneurysm. She recently had a CT angio for PE rule out, review of outpatient chart shows an order for CT chest with contrast by Dr. Goncalves for pulmonary nodule as well as order for CT chest without contrast for thoracic aneurysm by Dr. Lou. The CT chest without contrast is scheduled for 04/23/19 at 10:20 Past Med Surg Social Fam HX - Past Medical History Medical history: cancer, CHF, COPD, coronary artery disease, CVA, dialysis, hyperlipidemia, hypertension, myocardial infarction, other Additional medical history: lung cancer, FLORENCIO removed Psychiatric history: anxiety - Past Surgical History Surgical History: appendectomy, cholecystectomy Additional surgical history: left upper lobe removed. 3 cardiac stents. dialysis port right upper chest - Social History Smoking Status: Current every day smoker Smokeless Tobacco Status: No Alcohol use: none Drug use: none - Family History Mother Adopted: No Living Status: Hx Family Cardiac Disorders: Yes (CHF) Father Adopted: No Living Status: Hx Family Cardiac Disorders: Yes (CHF) Hx Family Respiratory Disorders: Yes (emphesema) Hx Family Neuromuscular Disorders: Yes (Parkinsons) Medications and Allergies Clopidogrel [Plavix] 75 mg PO DAILY 10/21/18 [History] amLODIPine [Norvasc] 5 mg PO DAILY 10/21/18 [History] Ipratropium/Albuterol Sulfate [Iprat-Albut 0.5-3(2.5) mg/3 ml] 3 ml IH 2-4XD [History] Isosorbide MONOnitrate (24 HR) [Imdur] 30 mg PO DAILY 01/17/19 [History] OLANZapine [Zyprexa] 2.5 mg PO HS 02/04/19 [History] Apixaban [Eliquis] 2.5 mg PO BID #60 tablet 03/23/19 [Rx] Furosemide [Lasix] 40 mg PO SUMO@0900 #30 tablet 03/25/19 [Rx] Epoetin Matthew [Procrit] 4,000 unit IJ AD 04/24/19 [History] Losartan Potassium [Cozaar] 25 mg PO BID 04/24/19 [History] Albuterol Sulfate [Ventolin Hfa] 2 puff IH Q4H PRN 04/25/19 [History] Ferrous Sulfate [Iron] 325 mg PO TU 04/25/19 [History] Fluticasone/Umeclidin/Vilanter [Trelegy Ellipta 100-62.5-25] 1 puff IH 1200 04/25/19 [History] LORazepam [Ativan] 0.5 mg PO TID PRN 04/25/19 [History] Levothyroxine [Synthroid] 75 mcg PO 0630 04/25/19 [History] Midodrine [ProAmatine] 5 mg PO TUTHSA 04/25/19 [History] Ondansetron HCl [Zofran] 4 mg PO Q6HR PRN 04/25/19 [History] Bisacodyl [Dulcolax] 5 mg PO DAILY tablet 04/26/19 [Rx] Omeprazole [PriLOSEC] 20 mg PO BIDAC capsule. 04/26/19 [Rx] Atenolol [Tenormin] 50 mg PO BID 05/03/19 [History] Diltiazem CD (24hr) [Cardizem CD] 120 mg PO DAILY 05/04/19 [History] Allergy/AdvReac Type Severity Reaction Status Date / Time atorvastatin Allergy See Verified 05/04/19 13:25 Comments doxycycline Allergy Rash Verified 05/04/19 13:25 Sulfa (Sulfonamide Allergy Rash Verified 05/04/19 13:25 Antibiotics) codeine AdvReac Nausea Verified 05/04/19 13:25 hydrocodone [From Vicodin] AdvReac Irritable Verified 05/04/19 13:25 Review of Systems Constitutional: anorexia, fatigue, weakness, no chills, no fever(s) Eyes: bilateral: blurred vision Nose, mouth and throat: dizziness, no abnormal hearing Cardiovascular: dyspnea, pedal edema, no chest pain, no irregular heart rhythm, no palpitations, no syncope Respiratory: cough, dyspnea Gastrointestinal: no abdominal pain, no change in bowel habits, no constipation, no diarrhea, no hematochezia, no melena, no nausea, no vomiting Genitourinary Female: no dysuria, no hematuria Menstruation: post menopausal Musculoskeletal: no arthralgias, no myalgias Musculoskeletal: bilateral: ankle swelling, foot swelling Integumentary: no rash, no wounds Neurological: dizziness, weakness Psychiatric: no anxiety, no depression Endocrine: fatigue, no cold intolerance, no heat intolerance Hematologic/Lymphatic: no easy bleeding Allergic/Immunologic: no uticaria Exam - Vital Signs Vital signs: Initial Vital Signs Pulse Ox 88 04/21/19 04:09 Vital Signs - Last 8 Hours Temp Pulse Resp BP Pulse Ox 04/21/19 08:26 97.9 F 77 18 152/76 93 04/21/19 06:57 88 19 154/78 99 04/21/19 04:28 22 95 04/21/19 04:13 97.7 F 88 34 156/93 95 04/21/19 04:12 88 34 156/93 95 04/21/19 04:11 97.7 F 95 34 160/89 95 04/21/19 04:10 93 04/21/19 04:09 88 Intake and Output 04/20/19 04/21/19 04/21/19 23:59 07:59 15:59 Other: Weight 54.023 kg Patient Weight 04/21/19 23:59 Weight 54.023 kg Additional exam: Gen: Vitals noted. No acute distress, fatigued. AAOx3 HEENT: PERRL/EOMI, oropharynx clear, MMM, Normocephalic, atraumatic, no cervical lymphadenopathy Cardiac: RRR, no murmur, +S1/S2, radial pulses 3+ and symmetrical, posterior tibial pulses 2+ and symmetrical. Capillary refill less than 3 seconds Pulmonary: Decreased breath sounds at bases, crackles bilaterally, no wheezes or rhonchi. Equal chest expansion. Right chest wall permacath in place. Abdomen: soft, nontender, BS noted, no guarding, no rebound. MSK: ROM intact Extremities: 2+ edema of lower extremities, no calf tenderness, no cyanosis or clubbing Neuro: A&Ox3, moves all extremities, no focal deficits Psych: Appropriate mood and behavior Results - Lab Results 04/21/19 05:55 04/21/19 11:10 Most recent lab results 04/21/19 04/21/19 04:42 07:37 Calcium 8.5 L 8.9 Consult Discharge Plan - Plan Instructions: Dyspnea (GEN), End-Stage Kidney Disease (DC) Referrals: Patricia Topete CNP [Primary Care Provider] - 04/30/19 2:30 pm (Apt made on 04/23/19.) <Chuck Chou - Last Filed: 05/05/19 01:26> Date of Encounter: 04/21/19 Assessment and Plan (1) ESRD (end stage renal disease) on dialysis Status: Chronic (2) Pulmonary edema Status: Acute Qualifiers: Chronicity: acute Qualified Code(s): J81.0 - Acute pulmonary edema (3) Volume overload Status: Acute Qualifiers: Hypervolemia type: unspecified Qualified Code(s): E87.70 - Fluid overload, unspecified (4) Altered mental status Status: Acute Qualifiers: Qualified Code(s): R41.82 - Altered mental status, unspecified Exam - Vital Signs Vital signs: Initial Vital Signs Pulse Ox 88 04/21/19 04:09 Results - Lab Results 04/23/19 09:19 04/23/19 09:19 - Attending Attestation I examined this patient and my medical decision-making was reviewed with the Resident Physician. I agree with the documented findings, disposition and treatment plan as described except to the extent set forth below. In brief; 68 y o female with PMH of ESRD on HD admitted with SON and hyperkalemia a day before due to HD. Pt seen and examined on HD reports eating frozen pepperoni pizza last night. On exam: Gen chronix ill appearing frail, lethargic, lungs with decreased BS bases bilat, heart S1S2, abs soft NTND ext with trace LE edema bilat and neuro AAOx3. Continue HD with Uf as tolerated. Plan another HD tomorrow. Counseled on compliance with fluid restriction and diet.
[2019-04-21] MEDS: Aspirin Enteric Coated 81 MG Tablet PO SCH (10:37)
[2019-04-21] MEDS: Apixaban 2.5 MG TABLET PO SCH (10:37)
[2019-04-21] MEDS: Isosorbide MONOnitrate (24 HR) 30 MG TAB.ER.24H PO SCH (10:37)
[2019-04-21 11:45] LABS: Hepatitis B Surface Antibody 3.91 mIU/mL
[2019-04-21 11:54] LABS: Hepatitis B Surface Antigen Nonreactive (Nonreactive)
--- NOTE | 2019-04-21 18:33 | Electrocardiograph Report ---
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
[2019-04-21] MEDS: OLANZapine 5 MG TAB.RAPDIS PO SCH (20:07)
[2019-04-22] MEDS: Ipratropium/Albuterol Neb 3 ML IH PRN (04:06)
[2019-04-22 06:44] LABS: Basophils % 0.2 %; Hematocrit 32.8 % (35.3-44.9); Hemoglobin 10.2 g/dL (11.5-15.4); Immature Granulocytes % 0.8 % (0-4); Lymphocytes # 1.6 K/mcL (0.6-4.6); Lymphocytes % 11.1 %; Mean Corpuscular HGB Conc 31.1 g/dL (31.6-35.5); Mean Corpuscular Hemoglobin 25.9 pg (28.0-33.3); Mean Corpuscular Volume 83.2 fL (83.0-100.0); Mean Platelet Volume 9.4 fL (9.4-12.4); Monocytes # 1.1 K/mcL (0.0-1.3); Monocytes % 7.5 %; Neutrophils # 11.7 K/mcL (1.6-8.9); Platelet Count 335 K/mcL (140-400); Red Blood Count 3.94 M/mcL (3.82-4.97); Red Cell Distribution Width 19.5 % (11.5-14.5); Segmented Neutrophils % 80.4 %; White Blood Count 14.6 K/mcL (4.3-11.1)
[2019-04-22 07:12] LABS: Calcium 9.2 mg/dL (8.6-10.3); Potassium 4.7 mEq/L (3.5-5.1)
[2019-04-22] MEDS ORDERED: 0.9 % Sodium Chloride 1,000 ML PRIME SCH (07:30)
[2019-04-22] MEDS ORDERED: 0.9 % Sodium Chloride 250 ML IVC PRN (07:30)
[2019-04-22] MEDS ORDERED: *HR* Heparin 10,000 UNIT/10 ML VIAL IV PRN ×2 (07:30)
[2019-04-22] MEDS: Budesonide/Formoterol 80/4.5 1 PUFF INH IH SCH (07:53)
[2019-04-22] MEDS ORDERED: NON-FORMULARY MEDICATION 1 EACH EACH (Ferrous Sulfate [Iron] 325 MG) PO SCH (08:11)
[2019-04-22] MEDS: Isosorbide MONOnitrate (24 HR) 30 MG TAB.ER.24H PO SCH (12:08)
[2019-04-22] MEDS: Aspirin Enteric Coated 81 MG Tablet PO SCH (12:08)
--- NOTE | 2019-04-22 12:37 | Internal Med Progress Note ---
Hospitalist Progress Note - Encounter Date of Encounter: 04/22/19 Time of Encounter: 09:35 - Subjective Interval History: Patient was seen with her in the dialysis unit. They had many questions, all ANSWERED. The asking to order CT scan that was scheduled tomorrow for her aortic aneurysm by her CT surgeon. Her shortness of breath is improving. She denied any chest pain - Exam Vitals: Temp Pulse Resp BP Pulse Ox 97.5 F L 85 18 169/83 97 04/22/19 11:22 04/22/19 11:22 04/22/19 11:22 04/22/19 11:22 04/22/19 11:22 Exam: Constitutional: Vitals as noted. Conversant. No Apparent Distress. Eyes : Sclera white, conjunctiva clear, no lid lag, PEARLA. ENT : Grossly normal hearing. Respiratory : Decrease air entry at base, basilar crackles and scattered wheezing. Cardiovascular : RRR, +S1, +S2. no murmur, gallop, rubs. No chest wall tende rness GI/Abdominal : Soft, Non-tender, Non-distended, normal bowel sounds, no p eritoneal signs. no orgenomegaly or mass appreciated. no hernia. Musculoskeletal: no deformity noted. 2+ edema , warm extremities, pulses palpable and symmetrical in UE/LE. no calf tenderness. Neurological: AO X3, CN II-XII grossly intact, grossly normal motor and sensory exam. Skin: No skin rash, lesions or ulcers noted. Pych: AOx3. - Assessment and Plan (1) Dyspnea Current Visit: Yes Status: Acute (2) Hyperkalemia Current Visit: Yes Status: Suspected (3) Pulmonary edema Current Visit: Yes Status: Acute (4) COPD (chronic obstructive pulmonary disease) Current Visit: Yes Status: Chronic (5) Acute and chronic respiratory failure with hypoxia Current Visit: No Status: Acute (6) Congestive heart failure Current Visit: No Status: Acute (7) ESRD (end stage renal disease) on dialysis Current Visit: Yes Status: Acute (8) CAD (coronary artery disease) Current Visit: No Status: Chronic (9) HTN (hypertension) Current Visit: No Status: Chronic (10) Hypothyroidism Current Visit: No Status: Chronic (11) Reflux esophagitis Current Visit: No Status: Chronic (12) Afib Current Visit: Yes Status: Chronic (13) DVT prophylaxis Current Visit: Yes Status: Acute - Summary of Assessment and Plan Summary of Assessment and Plan: Ms. Weeks is a 68 year old female past medical history of GERD, ESRD, systolic CHF with EF of 40% and global systolic dysfunction on 03/22/19, COPD with chronic respiratory failure on 2 L home oxygen, coronary artery disease, history of lung cancer status post left upper lobe resection, who was recently diagnosed with new-onset A. fib and was started on Eliquis and Cardizem on last discharge came in complaining of shortness of breath and feeling weak. Acute hypoxic respiratory failure: From fluid overload given noncompliance with diet. Currently on 2 L of oxygen. Status post 2 HD. Atrial fibrillation: On eliquis and atenolol and cardizem at home. Atenolol was switched to Lopressor, Cardizem was stopped due to low EF. Rate controlled. Leukocytosis: No apparent source of infection. Continue to monitor. Patient is afebrile. Malfunction dialysis catheter: Her catheter will be replaced by IR today. Aortic aneurysm: As per the , CT surgeon ordered CT of the chest to be done tomorrow and he is requesting to do with why the patient is inpatient. Will proceed with CT scan. ESRD: HD scheduled as per nephrology. She is not complaint with diet. Continue Lasix. COPD on 2L at home: continue home inhalers. DVT ppx: Eliquis. - Time Spent with Patient Total time spent is greater than 50% in coordination of care (as documented) at patient's floor/unit and/or counseling patient: Plan of Care Discussed with: family Internal Medicine: Result - Labs CBC & Chem 7: 04/22/19 06:23 04/22/19 06:23 Labs: Short CBC 04/22/19 Range/Units 06:23 WBC 14.6 H (4.3-11.1) K/mcL Hgb 10.2 L (11.5-15.4) g/dL Hct 32.8 L (35.3-44.9) % Plt Count 335 (140-400) K/mcL Neutrophils # 11.7 H (1.6-8.9) K/mcL BMP 04/22/19 06:23 Sodium 132 L Potassium 4.7 D Chloride 96 L Carbon Dioxide 26 BUN 17 Creatinine 3.22 H Glucose 121 H Calcium 9.2 - ABG Interpretation ABG results: PT/INR, D-dimer PT 13.1 Seconds (9.4-12.1) H 04/21/19 04:42 - Impressions Impressions Chest X-Ray 04/21/19 14:49 IMPRESSION: Improved appearance demonstrating decreased pulmonary vascular congestion and edema D/ / Alok Freeman MD / Alok Freeman MD Interpreting Provider: Alok Freeman MD Consult Discharge Plan - Plan Referrals: Patricia Topete CNP [Primary Care Provider] - (1) Dyspnea Qualifiers: Dyspnea type: acute respiratory distress Qualified Code(s): R06.03 - Acute respiratory distress (3) Pulmonary edema Qualifiers: Chronicity: acute Qualified Code(s): J81.0 - Acute pulmonary edema (4) COPD (chronic obstructive pulmonary disease) Qualifiers: COPD type: unspecified COPD Qualified Code(s): J44.9 - Chronic obstructive pulmonary disease, unspecified (6) Congestive heart failure Qualifiers: Heart failure type: systolic Heart failure chronicity: unspecified Qualified Code(s): I50.20 - Unspecified systolic (congestive) heart failure (8) CAD (coronary artery disease) Qualifiers: Coronary Disease-Associated Artery/Lesion type: [place] artery [place] vs. transplanted heart: [place] heart Associated angina: without angina Qualified Code(s): I25.10 - Atherosclerotic heart disease of [place] coronary artery wit hout angina pectoris (9) HTN (hypertension) Qualifiers: Hypertension type: essential hypertension Qualified Code(s): I10 - Essential (primary) hypertension (10) Hypothyroidism Qualifiers: Hypothyroidism type: unspecified Qualified Code(s): E03.9 - Hypothyroidism, unspecified (12) Afib Qualifiers: Atrial fibrillation type: paroxysmal Qualified Code(s): I48.0 - Paroxysmal atrial fibrillation
[2019-04-22] MEDS ORDERED: Heparin 1,000 UNITS/500 mL 500 ML ONE (14:05)
[2019-04-22] MEDS ORDERED: *HR* Heparin 5,000 UNIT/ML VIAL ONE (14:43)
--- NOTE | 2019-04-22 15:25 | Nephrology Progress Note ---
Date of Encounter: 04/22/19 Time of Encounter: 15:22 - Assessment and Plan (1) ESRD (end stage renal disease) on dialysis Current Visit: Yes Status: Acute Current regimen is TTS at [facility]. HD completed today. IR consulted to exchange tunneled line. Renal diet when not NPO. Renal vitamins Strict I/O Avoid nephrotoxins and renal dose all medications. Will order additional UF or HD as needed. (2) Pulmonary edema Current Visit: Yes Status: Acute Improved with back to back HD. Continue Lasix on discharge, consider increased frequency as patient has been in the hospital several times recently due to pulm. edema. Qualifiers: Chronicity: acute Qualified Code(s): J81.0 - Acute pulmonary edema (3) Volume overload Current Visit: Yes Status: Acute See above. Qualifiers: Hypervolemia type: unspecified Qualified Code(s): E87.70 - Fluid overload, unspecified (4) Altered mental status Current Visit: No Status: Acute Per primary. Qualifiers: Qualified Code(s): R41.82 - Altered mental status, unspecified Subjective Principal diagnosis: difficulty in breathing Interval history: Pt seen and examined, at bedside. Chest pain or shortness of breath. Denies nausea, vomiting or diarrhea. All questions answered to . Objective - Vital Signs Vital signs: Vital Signs Temp Pulse Resp BP Pulse Ox 04/22/19 11:26 97.6 F 18 157/86 04/22/19 11:22 97.5 F L 85 18 169/83 97 04/22/19 11:10 165/89 04/22/19 10:55 157/88 04/22/19 10:40 127/84 04/22/19 10:25 95/57 04/22/19 10:10 127/84 04/22/19 09:55 171/94 04/22/19 09:40 175/104 04/22/19 09:25 176/99 04/22/19 09:10 181/97 04/22/19 08:55 180/98 04/22/19 08:40 173/93 04/22/19 08:25 176/100 04/22/19 08:10 97.5 F L 18 165/128 04/22/19 07:55 18 95 04/22/19 07:06 97.7 F 89 18 166/98 95 04/22/19 04:09 98.2 F 82 18 156/78 98 04/22/19 04:06 17 95 04/22/19 00:04 98.6 F 88 18 168/89 99 04/21/19 20:35 17 100 04/21/19 19:13 98.5 F 90 17 154/86 98 04/21/19 15:32 98.0 F 90 18 159/85 99 Intake and Output 04/21/19 04/22/19 04/22/19 23:59 07:59 15:59 Intake Total 240 / 840 840 / 840 Output Total 400 / 4423 2645 / 2645 Balance -160 / -3583 -1805 / -1805 Intake: Oral 240 / 240 240 / 240 Intake, Rinseback and Flushes 600 / 600 Output: Urine 400 / 400 Total Dialysis (HD) Output 2645 / 2645 Other: Meal Dinner Percent of Meal Consumed 50% Weight 54 kg Hemodialysis Net Fluid Removed 2045 (mL) Patient Weight 04/22/19 23:59 Weight 54 kg - General Appearance General appearance: Present: chronically ill, frail EENT: Present: ATNC, hearing intact, vision intact Neck: Present: supple Respiratory: Present: clear Cardiology: Present: no edema, normal S1, normal S2 Dialysis Vascular Access: Venous Catheter (DRSG C/D/I) Gastrointestinal: Present: normoactive bowel sounds, no tenderness, no guarding Integumentary: Present: no rash, warm and dry Neurologic: Present: confused Musculoskeletal: Present: no deformities, no erythema Psychiatric: Present: mood/affect appropriate, cooperative - Lab 04/22/19 06:23 04/22/19 06:23 Most recent lab results 04/22/19 06:23 Calcium 9.2 Consult Discharge Plan - Plan Referrals: Efrem,Patricia Dick [employer] PHOTOGRAPHER [Primary Care Provider] -
[2019-04-22] MEDS: *HR* LORazepam 0.5 MG TABLET PO SCH ×2 (17:26→20:48)
[2019-04-22] MEDS: Budesonide/Formoterol 160/4.5 1 PUFF INH IH SCH (19:49)
[2019-04-22] MEDS: OLANZapine 5 MG TAB.RAPDIS PO SCH (20:48)
[2019-04-22] MEDS ORDERED: Budesonide/Formoterol 160/4.5 1 PUFF INH IH SCH (22:00)
[2019-04-23] MEDS: Ipratropium/Albuterol Neb 3 ML IH PRN ×2 (07:22→11:18)
[2019-04-23] MEDS: Budesonide/Formoterol 160/4.5 1 PUFF INH IH SCH (07:22)
[2019-04-23] MEDS: Aspirin Enteric Coated 81 MG Tablet PO SCH (08:47)
[2019-04-23] MEDS: *HR* LORazepam 0.5 MG TABLET PO SCH (08:47)
[2019-04-23] MEDS: Isosorbide MONOnitrate (24 HR) 30 MG TAB.ER.24H PO SCH (08:47)
[2019-04-23] MEDS ORDERED: amLODIPine 5 MG TABLET PO SCH (09:00)
[2019-04-23 09:48] LABS: Basophils % 0.2 %; Eosinophils # 0.1 K/mcL (0.0-0.6); Eosinophils % 0.5 %; Hemoglobin 10.3 g/dL (11.5-15.4); Immature Granulocytes % 0.6 % (0-4); Lymphocytes # 1.4 K/mcL (0.6-4.6); Lymphocytes % 8.7 %; Mean Corpuscular HGB Conc 30.3 g/dL (31.6-35.5); Mean Corpuscular Hemoglobin 25.8 pg (28.0-33.3); Mean Platelet Volume 9.4 fL (9.4-12.4); Monocytes # 1.1 K/mcL (0.0-1.3); Monocytes % 6.9 %; Neutrophils # 13.8 K/mcL (1.6-8.9); Platelet Count 269 K/mcL (140-400); Red Cell Distribution Width 19.9 % (11.5-14.5); Segmented Neutrophils % 83.1 %; White Blood Count 16.6 K/mcL (4.3-11.1)
[2019-04-23] MEDS ORDERED: Tiotropium 18 MCG inhalation IH SCH (10:00)
[2019-04-23 10:09] LABS: Calcium 8.5 mg/dL (8.6-10.3); Potassium 3.7 mEq/L (3.5-5.1)
--- NOTE | 2019-04-23 10:55 | Discharge Summary ---
Date of Encounter: 04/23/19 Time of Encounter: 10:00 - Discharge Diagnosis (1) Acute and chronic respiratory failure with hypoxia Priority: Primary Status: Acute Assessment and Plan: 68 year old female past medical history of GERD, ESRD, systolic CHF with EF of 40% and global systolic dysfunction on 03/22/19, COPD with chronic respiratory failure on 2 L home oxygen, coronary artery disease, history of lung cancer status post left upper lobe resection, who was recently diagnosed with new-onset A. fib and was started on Eliquis and Cardizem on last discharge came in complaining of shortness of breath and feeling weak. She is compliant with her dialysis with last dialysis on Sunday where 2 L were taken out instead of 3. She has been short of breath since November of this year and had many hospitalizations and was started on dialysis. Patient's brought her in because of her shortness of breath and her oxygen being 79% at home and concern of her on and off high heart rate. She mentions he is compliant with her renal diet and fluid restriction. She was assessed with acute hypoxic respiratory failure secondary to acute worsening of chronic systolic CHF and ESRD with volume overload. She was treated with diuretics and dialysis and improved considerably. She was back to her baseline on discharge and was discharged in a stable condition. (2) Dyspnea Priority: Primary Status: Acute Qualifiers: Dyspnea type: acute respiratory distress Qualified Code(s): R06.03 - Acute respiratory distress (3) Hyperkalemia Priority: Primary Status: Suspected (4) Pulmonary edema Priority: Primary Status: Acute Qualifiers: Chronicity: acute Qualified Code(s): J81.0 - Acute pulmonary edema (5) COPD (chronic obstructive pulmonary disease) Priority: Primary Status: Chronic Qualifiers: COPD type: unspecified COPD Qualified Code(s): J44.9 - Chronic obstructive pulmonary disease, unspecified (6) Congestive heart failure Priority: Primary Status: Acute Qualifiers: Heart failure type: systolic Heart failure chronicity: unspecified Qualified Code(s): I50.20 - Unspecified systolic (congestive) heart failure (7) ESRD (end stage renal disease) on dialysis Priority: Primary Status: Acute (8) CAD (coronary artery disease) Priority: Primary Status: Chronic Qualifiers: Coronary Disease-Associated Artery/Lesion type: [place] artery [place] vs. transplanted heart: [place] heart Associated angina: without angina Qualified Code(s): I25.10 - Atherosclerotic heart disease of [place] coronary artery without angina pectoris (9) HTN (hypertension) Priority: Primary Status: Chronic Qualifiers: Hypertension type: essential hypertension Qualified Code(s): I10 - Essential (primary) hypertension (10) Hypothyroidism Priority: Primary Status: Chronic Qualifiers: Hypothyroidism type: unspecified Qualified Code(s): E03.9 - Hypothyroidism, unspecified (11) Reflux esophagitis Priority: Primary Status: Chronic (12) Afib Priority: Primary Status: Chronic Qualifiers: Atrial fibrillation type: paroxysmal Qualified Code(s): I48.0 - Paroxysmal atrial fibrillation (13) DVT prophylaxis Priority: Primary Status: Acute Hospital course: Ms. Weeks is a 68 year old female - Time Spent with Patient Total time spent providing and/or coordinating discharge services: - Discharge Medications Prescriptions: Continued Atenolol [Tenormin] 50 mg PO BID amLODIPine [Norvasc] 5 mg PO DAILY Levothyroxine [Synthroid] 75 mcg PO QAM Clopidogrel [Plavix] 75 mg PO DAILY Losartan Potassium [Cozaar] 25 mg PO BID Albuterol Sulfate [Ventolin Hfa] 2 puff IH Q4H PRN PRN Reason: Shortness Of Breath Ipratropium/Albuterol Sulfate [Iprat-Albut 0.5-3(2.5) mg/3 ml] 3 ml IH 2-4XD Isosorbide MONOnitrate (24 HR) [Imdur] 30 mg PO DAILY Ferrous Sulfate [Iron] 325 mg PO TU OLANZapine [Zyprexa] 2.5 mg PO HS Ondansetron HCl [Zofran] 4 mg PO Q6H PRN PRN Reason: Nausea Promethazine [Phenergan] 25 mg PO Q6HR PRN PRN Reason: Nausea And Vomiting Midodrine [ProAmatine] 5 mg PO TUTHSA@0800 LORazepam [Ativan] 0.5 mg PO TID PRN PRN Reason: Anxiety Apixaban [Eliquis] 2.5 mg PO BID #60 tablet Diltiazem CD (24hr) [Cardizem CD] 120 mg PO DAILY #30 cap.er.24h Furosemide [Lasix] 40 mg PO SUMO@0900 #30 tablet Fluticasone/Umeclidin/Vilanter [Trelegy Ellipta 100-62.5-25] 1 puff IH 1200 Home Medications: Atenolol [Tenormin] 50 mg PO BID 10/21/18 [History] Clopidogrel [Plavix] 75 mg PO DAILY 10/21/18 [History] Levothyroxine [Synthroid] 75 mcg PO QAM 10/21/18 [History] Losartan Potassium [Cozaar] 25 mg PO BID 10/21/18 [History] amLODIPine [Norvasc] 5 mg PO DAILY 10/21/18 [History] Albuterol Sulfate [Ventolin Hfa] 2 puff IH Q4H PRN 11/14/18 [History] Ipratropium/Albuterol Sulfate [Iprat-Albut 0.5-3(2.5) mg/3 ml] 3 ml IH 2-4XD 11/14/18 [History] Ferrous Sulfate [Iron] 325 mg PO TU 01/17/19 [History] Isosorbide MONOnitrate (24 HR) [Imdur] 30 mg PO DAILY 01/17/19 [History] OLANZapine [Zyprexa] 2.5 mg PO HS 02/04/19 [History] Ondansetron HCl [Zofran] 4 mg PO Q6H PRN 02/18/19 [History] Midodrine [ProAmatine] 5 mg PO TUTHSA@0800 03/20/19 [History] Promethazine [Phenergan] 25 mg PO Q6HR PRN 03/20/19 [History] LORazepam [Ativan] 0.5 mg PO TID PRN 03/21/19 [History] Apixaban [Eliquis] 2.5 mg PO BID #60 tablet 03/23/19 [Rx] Diltiazem CD (24hr) [Cardizem CD] 120 mg PO DAILY #30 cap.er.24h 03/25/19 [Rx] Furosemide [Lasix] 40 mg PO SUMO@0900 #30 tablet 03/25/19 [Rx] Fluticasone/Umeclidin/Vilanter [Trelegy Ellipta 100-62.5-25] 1 puff IH 1200 04/21/19 [History] Allergies/Adverse Reactions: Allergy/AdvReac Type Severity Reaction Status Date / Time atorvastatin Allergy See Verified 04/21/19 04:05 Comments doxycycline Allergy Rash Verified 04/21/19 04:05 Sulfa (Sulfonamide Allergy Rash Verified 04/21/19 04:05 Antibiotics) codeine AdvReac Nausea Verified 04/21/19 04:05 hydrocodone [From Vicodin] AdvReac Irritable Verified 04/21/19 04:05 Date of admission: 04/21/19 06:42 Primary care physician: Patricia Topete CNP Consults: 04/21/19 06:14 Consult to Nephrology [CONS] Stat Consulting Provider: Kidney Merna/GUNJAN/MELISSA/LUISA Reason for Consult: hyperkalemia, fluid overloaded Time Notified: 06:14 Call Completed: Yes 04/21/19 08:09 Consult to Occupational Therapy [CONS] Routine Comment: Evaluate, develop and implement POC Reason for Consult: early mobility, discharge planning Does patient have active BEDREST order?: No Is patient medically & hemodynamically stable?: Yes Consult to Physical Therapy [CONS] Routine Comment: Evaluate, develop and implement POC Reason for Consult: early mobility, discharge planning Does patient have active BEDREST order?: No Is patient medically & hemodynamically stable?: Yes 04/21/19 09:00 Consult to Dialysis [CONS] ONCE 04/22/19 07:30 Consult to Dialysis [CONS] ONCE 04/22/19 11:40 Consult to Interventional Radiology [CONS] Stat Consulting Provider: Radiology Interventional Cols Reason for Consult: PC guidewire exchnge Call Completed: Yes - Constitutional Vitals: Temp Pulse Resp BP Pulse Ox 98.4 F 89 18 171/90 98 04/23/19 06:35 04/23/19 06:35 04/23/19 07:24 04/23/19 06:35 04/23/19 07:24 Exam: Constitutional: Vitals as noted. Conversant. No Apparent Distress. Eyes : Sclera white, conjunctiva clear, no lid lag, PEARLA. ENT : Grossly normal hearing. Respiratory : Decrease air entry at base, basilar crackles and scattered wheezing. Cardiovascular : RRR, +S1, +S2. no murmur, gallop, rubs. No chest wall tenderness GI/Abdominal : Soft, Non-tender, Non-distended, normal bowel sounds, no peritoneal signs. no orgenomegaly or mass appreciated. no hernia. Musculoskeletal: no deformity noted. 2+ edema , warm extremities, pulses palpable and symmetrical in UE/LE. no calf tenderness. Neurological: AO X3, CN II-XII grossly intact, grossly normal motor and sensory exam. Skin: No skin rash, lesions or ulcers noted. Pych: AOx3. - Patient Status Disposition: Home Health Service Condition: Good - Discharge Instructions Instructions: Dyspnea (GEN), End-Stage Kidney Disease (DC) Follow Up With: Patricia Topete CNP [Primary Care Provider] - 04/30/19 2:30 pm (Apt made on 04/23/19.)
[2019-04-23 11:17] VITALS: BP 131/81
[2019-04-23] MEDS: Apixaban 2.5 MG TABLET PO SCH (11:41)
[2019-04-23] MEDS ORDERED: NON-FORMULARY MEDICATION 1 EACH EACH (Fluticasone/Umeclidin/Vilanter [Trelegy Ellipta 100- IH SCH (12:00)
[2019-04-23] MEDS ORDERED: FLU Vac QV 19-20 (6Month+)/PF 0.5 ML SYRINGE IM ONE (12:03)
--- NOTE | 2019-04-23 12:08 | Nephrology Progress Note ---
Date of Encounter: 04/23/19 Time of Encounter: 12:06 - Assessment and Plan (1) ESRD (end stage renal disease) on dialysis Current Visit: Yes Status: Acute Status post hemodialysis on Sunday and ultrafiltration yesterday Able to remove 6.6 L Status post exchange of tunneled line Avoid nephrotoxins and renally dose all medications Recommend resuming a TTS schedule for dialysis Recommend increasing Lasix schedule to every day, Sunday, Sunday, Sunday, Sunday on discharge Continue renal diet (2) Pulmonary edema Current Visit: Yes Status: Acute Improved on imaging Above for management Qualifiers: Chronicity: acute Qualified Code(s): J81.0 - Acute pulmonary edema (3) Volume overload Current Visit: Yes Status: Acute See above for management Qualifiers: Hypervolemia type: unspecified Qualified Code(s): E87.70 - Fluid overload, unspecified Subjective Principal diagnosis: difficulty in breathing Interval history: Patient seen and examined at bedside. She is feeling somewhat better and her breathing has improved. She has a good appetite and has not yet urinated stay however this is understandable after she has had hemodialysis on Sunday as well as ultrafiltration yesterday. She continues to admit to shortness of breath but she denies fever, chills, nausea, vomiting, chest pain, abdominal pain, diarrhea, constipation, weakness. Objective - Vital Signs Vital signs: Vital Signs Temp Pulse Resp BP Pulse Ox 04/23/19 11:20 18 98 04/23/19 11:13 98.9 F 82 16 131/81 99 04/23/19 07:24 18 98 04/23/19 06:35 98.4 F 89 16 171/90 97 04/23/19 04:17 97.5 F L 82 17 149/82 93 04/23/19 00:25 97.6 F 78 17 147/72 94 04/22/19 19:49 18 90 04/22/19 19:14 97.7 F 85 16 153/91 91 04/22/19 16:35 97.4 F L 86 18 158/86 97 Intake and Output 04/22/19 04/23/19 04/23/19 23:59 07:59 15:59 Intake Total 140 / 140 Balance 140 / 140 Intake: Oral 140 / 140 Other: Meal Breakfast Percent of Meal Consumed 75% Weight 54.6 kg Patient Weight 04/23/19 23:59 Weight 54.6 kg - General Appearance Exam: Gen: Vitals noted. No acute distress. AAOx3, pleasant HEENT: PERRL/EOMI, oropharynx clear, Normocephalic, atraumatic, MMM Cardiac: RRR, no murmur, +S1/S2, radial and dorsal pedis pulses 3+ and symmetrical Pulmonary: Coarse and diminished breath sounds bilaterally, equal chest expansion. No erythema or drainage noted from new right permacath. Abdomen: soft, nontender, BS noted, no guarding, no rebound. MSK: ROM intact, no joint swelling noted Extremities: no BLE edema, no calf tenderness, no cyanosis or clubbing Neuro: A&Ox3, moves all extremities, no focal deficits Psych: Appropriate mood and behavior - Lab 04/23/19 09:19 04/23/19 09:19 Most recent lab results 04/23/19 09:19 Calcium 8.5 L Consult Discharge Plan - Plan Instructions: Dyspnea (GEN), End-Stage Kidney Disease (DC) Referrals: Patricia Topete CNP [Primary Care Provider] - 04/30/19 2:30 pm (Apt made on 04/23/19.)
--- NOTE | 2019-04-23 12:43 | Physician Discharge Referral ---
Home Health/Hosp Referral Info Transfer to: Home Health - Diagnosis (1) Dyspnea Priority: Primary Status: Acute (2) Hyperkalemia Priority: Primary Status: Suspected (3) Pulmonary edema Priority: Primary Status: Acute (4) COPD (chronic obstructive pulmonary disease) Priority: Primary Status: Chronic (5) Acute and chronic respiratory failure with hypoxia Priority: Primary Status: Acute (6) Congestive heart failure Priority: Primary Status: Acute (7) ESRD (end stage renal disease) on dialysis Priority: Primary Status: Acute (8) CAD (coronary artery disease) Priority: Primary Status: Chronic (9) HTN (hypertension) Priority: Primary Status: Chronic (10) Hypothyroidism Priority: Primary Status: Chronic (11) Reflux esophagitis Priority: Primary Status: Chronic (12) Afib Priority: Primary Status: Chronic (13) DVT prophylaxis Priority: Primary Status: Acute - Respiratory Orders Smoking Cessation: Smoking cessation has been advised. For more information, call the [facility] Quit Line at 5-213-IVHG-NOW. - Activity Activity Orders: Ambulate - Services Needed Following services are medically necessary services: Nursing, Home Health Aide, Physical Therapy - Transfer Medications Home Medications: Atenolol [Tenormin] 50 mg PO BID 10/21/18 [History] Clopidogrel [Plavix] 75 mg PO DAILY 10/21/18 [History] Levothyroxine [Synthroid] 75 mcg PO QAM 10/21/18 [History] Losartan Potassium [Cozaar] 25 mg PO BID 10/21/18 [History] amLODIPine [Norvasc] 5 mg PO DAILY 10/21/18 [History] Albuterol Sulfate [Ventolin Hfa] 2 puff IH Q4H PRN 11/14/18 [History] Ipratropium/Albuterol Sulfate [Iprat-Albut 0.5-3(2.5) mg/3 ml] 3 ml IH 2-4XD 11/14/18 [History] Ferrous Sulfate [Iron] 325 mg PO TU 01/17/19 [History] Isosorbide MONOnitrate (24 HR) [Imdur] 30 mg PO DAILY 01/17/19 [History] OLANZapine [Zyprexa] 2.5 mg PO HS 02/04/19 [History] Ondansetron HCl [Zofran] 4 mg PO Q6H PRN 02/18/19 [History] Midodrine [ProAmatine] 5 mg PO TUTHSA@0800 03/20/19 [History] Promethazine [Phenergan] 25 mg PO Q6HR PRN 03/20/19 [History] LORazepam [Ativan] 0.5 mg PO TID PRN 03/21/19 [History] Apixaban [Eliquis] 2.5 mg PO BID #60 tablet 03/23/19 [Rx] Diltiazem CD (24hr) [Cardizem CD] 120 mg PO DAILY #30 cap.er.24h 03/25/19 [Rx] Furosemide [Lasix] 40 mg PO SUMO@0900 #30 tablet 03/25/19 [Rx] Fluticasone/Umeclidin/Vilanter [Trelegy Ellipta 100-62.5-25] 1 puff IH 1200 04/21/19 [History] Allergies/Adverse Reactions: Allergy/AdvReac Type Severity Reaction Status Date / Time atorvastatin Allergy See Verified 04/21/19 04:05 Comments doxycycline Allergy Rash Verified 04/21/19 04:05 Sulfa (Sulfonamide Allergy Rash Verified 04/21/19 04:05 Antibiotics) codeine AdvReac Nausea Verified 04/21/19 04:05 hydrocodone [From Vicodin] AdvReac Irritable Verified 04/21/19 04:05 Certification: Further, I certify that my clinical findings support that this patient is homebound (i.e. absences from home require considerable and taxing effort and are for medical reasons or anabaptism services or infrequently or short duration when for other reasons) because: Homebound Reason: Patient requires assistance of a person or device to safely leave home Attestation: My signature below is to certify that this patient is under my care and that I, or nurse practitioner, or a physician's certified medical technician assistant working with me, has a [id number] encounter with this patient.
[2019-04-25] MEDS ORDERED: Furosemide 40 MG TABLET PO SCH (09:00)
== END 2019-04-23 13:45 | disposition home health service (06) ==
LOC: EMEROOARM 03:57 → 2ANU 03:57 → SUATTDRO 06:42 → 2ANU 07:32
PROVIDERS: ADMIT Family Medicine; ATTEND Internal Medicine

== ENCOUNTER 2019-04-24 10:06 | Observation (INO) ==
--- NOTE | 2019-04-24 10:40 | Emergency Department Note ---
Disposition Clinical Impression: SOB (shortness of breath), Elevated troponin Disposition: Admitted As Inpatient Condition: Fair Time of Disposition: 13:35 General Adult HPI - General Chief complaint: ED Shortness of Breath/Dyspnea Stated complaint: Weakness Time Seen by Provider: 04/24/19 10:09 Source: patient Mode of arrival: ambulatory Limitations: no limitations Nursing Notes Reviewed: Yes Vital Signs Reviewed: Yes - History of Present Illness HPI Narrative: Patient is a 68-year-old female with a past medical history of GERD, ESRD, HFrEF with EF of 40% and global systolic dysfunction on 03/22/19, COPD on 2 L home oxygen, A. fib on eliquis, CAD, history of lung cancer status post left upper lobe resection who presents with shortness of breath acutely after receiving dialysis earlier this afternoon. She had nearly completed a course of dialysis today, had about 45 minutes left when she started feeling short of breath and had generalized weakness throughout her body. She denied any chest pain, palpitations, syncope. She did not have any nausea, vomiting, fevers, chills. Denied any abdominal pain, constipation, diarrhea. She was not confused, patient was alert and oriented 3. Family member was at bedside, states that patient is at mental baseline. Pain Scale: 0 - Related Data Home Medications Medication Instructions Recorded Confirmed Atenolol [Tenormin] 50 mg PO BID 10/21/18 04/24/19 Clopidogrel [Plavix] 75 mg PO DAILY 10/21/18 04/24/19 amLODIPine [Norvasc] 5 mg PO DAILY 10/21/18 04/24/19 Ipratropium/Albuterol Sulfate 3 ml IH 2-4XD 11/14/18 04/24/19 [Iprat-Albut 0.5-3(2.5) mg/3 ml] Isosorbide MONOnitrate (24 HR) 30 mg PO DAILY 01/17/19 04/24/19 [Imdur] OLANZapine [Zyprexa] 2.5 mg PO HS 02/04/19 04/24/19 Bisacodyl [Woman's Laxative] 5 mg PO DAILY 04/24/19 04/24/19 Epoetin Matthew [Procrit] 4,000 unit IJ DAILY 04/24/19 04/24/19 Fluticasone/Salmeterol [Advair 1 each IH BID 04/24/19 04/24/19 250-50 Diskus] LORazepam [Ativan] 1 mg PO TID 04/24/19 04/24/19 Losartan Potassium [Cozaar] 50 mg PO DAILY 04/24/19 04/24/19 Previous Rx's Medication Instructions Recorded Apixaban [Eliquis] 2.5 mg PO BID #60 tablet 03/23/19 Diltiazem CD (24hr) [Cardizem CD] 120 mg PO DAILY #30 cap.er.24h 03/25/19 Furosemide [Lasix] 40 mg PO SUMO@0900 #30 tablet 03/25/19 Allergies Allergy/AdvReac Type Severity Reaction Status Date / Time atorvastatin Allergy See Verified 04/21/19 04:05 Comments doxycycline Allergy Rash Verified 04/21/19 04:05 Sulfa (Sulfonamide Allergy Rash Verified 04/21/19 04:05 Antibiotics) codeine AdvReac Nausea Verified 04/21/19 04:05 hydrocodone [From Vicodin] AdvReac Irritable Verified 04/21/19 04:05 All systems ED: reviewed and negative except as stated. Review of Systems: As Per HPI Constitutional: Denies: fever, chills, weakness Eyes: Denies: eye pain, eye discharge ENT ED: Denies: ear pain, throat pain, dental pain Cardiovascular: Denies: chest pain, palpitations, dyspnea on exertion Respiratory: Denies: cough, dyspnea, wheezes Gastrointestinal: Denies: abdominal pain, nausea, vomiting Genitourinary: Denies: urgency, dysuria, frequency Musculoskeletal: Denies: back pain, neck pain, joint swelling Integumentary: Denies: rash, abrasion, lesions Neurological: Denies: headache, weakness, numbness Psychiatric: Denies: anxiety, depression, suicidal thoughts Endocrine: Denies: fatigue, heat or cold intolerance, polydipsia Hematological/Lymphatic: Denies: easy bleeding, easy bruising, lymphadenopathy Past Medical History - Past Medical History Attestation: Yes The following information was validated with the patient. Source: patient Medical history: Reports: aortic aneurysm, cancer, CHF, COPD, coronary artery disease, CVA, dialysis, hyperlipidemia, hypertension, myocardial infarction, other Surgical history: Reports: appendectomy, cholecystectomy Psychiatric history: Reports: anxiety - Social History Smoking Status: Current every day smoker Smokeless Tobacco Status: No Alcohol use: Reports: none Drug use: Reports: none Physical Exam GEN: Ill-appearing, NAD, conversant. HEAD: Normocephalic, atraumatic. EYES: PERRL, EOMI, anicteric. ENT: MMM. oropharynx without erythema or drainage. NECK: Supple. No LAD. No stiffness or restricted ROM. No tracheal deviation. HEART: Regular rate and regular rhythm, normal S1/S2, no m/r/g. LUNGS: CTAB, good air exchange bilaterally. No wheezing, rubs, or rhonchi. ABDO: Soft, nontender, nondistended with active bowel sounds. : No suprapubic tenderness or CVA tenderness. BACK: No obvious stepoffs or deformities. EXT: Without cyanosis, clubbing or edema. SKIN: Warm and dry without any rash. NEURO: Grossly nonfocal. Alert and oriented, moving all 4 extremities. CN not formally tested but appear grossly intact. Observed to ambulate with normal gait. PSYCH: Normal affect, no depressed or anxious mood. - General Limitations: no limitations General appearance: alert, in no apparent distress Course Course Narrative: She was seen and examined. Signs were within normal limits. Labs and chest x- ray were obtained. Given duo nebs to help with breathing. - Reevaluation(s) Reevaluation #1: Communicated to the hospitalist accepted for admission. Time: 13:33 Vital Signs Temperature 98.7 F 04/24/19 10:07 Pulse Rate 83 04/24/19 10:07 Respiratory Rate 22 04/24/19 10:07 Blood Pressure 125/97 04/24/19 10:07 O2 Sat by Pulse Oximetry 100 04/24/19 10:07 Temperature 99.5 F 04/24/19 14:40 Pulse Rate 85 04/24/19 14:40 Respiratory Rate 18 04/24/19 14:40 Blood Pressure 150/74 04/24/19 14:40 O2 Sat by Pulse Oximetry 97 04/24/19 14:40 Oxygen Delivery Oxygen Delivery Room Air Medical Decision Making - [facility] Narrative Medical decision making narrative: Patient is a 68-year-old female with multiple comorbidities including end-stage renal disease on dialysis. She presents with shortness of breath. Differential includes ACS/DC, heart failure exacerbation. EKG significant for atrial fibrillation but no signs of ischemia. Troponin was elevated at 0.06. Last several troponins have not been elevated, despite history of renal disease. Patient had a slightly elevated white count along 11.5. Lactate was 1.3. Low suspicion for infection. Chest x-ray showed stable bilateral pleural effusions. No evidence of consolidation or infiltrate suggestive of pneumonia. No clinical signs of fluid overload that would suggest heart failure exacerbation. Given the elevated troponin, likely due to demand ischemia. Had a lengthy discussion with the patient who initially did not want to be admitted. Recommended to the patient that she do get admitted for further cardiac workup given her history of end-stage renal disease and cardiac history. She was communicated to the hospitalist accepted for admission. - Medical Records Medical records reviewed: Yes I reviewed the patient's medical records. - Lab Data Lab results reviewed: Yes I reviewed the patient's lab results. Result diagrams: 04/24/19 11:02 04/24/19 11:02 Lab Results 04/24/19 04/24/19 04/24/19 Range/Units 11:02 11:02 11:02 WBC 11.5 H (4.3-11.1) K/mcL RBC 4.00 (3.82-4.97) M/mcL Hgb 10.3 L (11.5-15.4) g/dL Hct 33.8 L (35.3-44.9) % MCV 84.5 (83.0-100.0) fL MCH 25.8 L (28.0-33.3) pg MCHC 30.5 L (31.6-35.5) g/dL RDW 18.8 H (11.5-14.5) % Plt Count 247 (140-400) K/mcL MPV 9.8 (9.4-12.4) fL Immature Gran % 0.4 (0-4) % Seg Neutrophils % 81.4 % Lymphocytes % 8.8 % Monocytes % 8.1 % Eosinophils % 1.0 % Basophils % 0.3 % Neutrophils # 9.4 H (1.6-8.9) K/mcL Lymphocytes # 1.0 (0.6-4.6) K/mcL Monocytes # 0.9 (0.0-1.3) K/mcL Eosinophils # 0.1 (0.0-0.6) K/mcL Basophils # 0.0 (0.0-0.2) K/mcL Sodium 135 L (136-145) mEq/L Potassium 3.3 L (3.5-5.1) mEq/L Chloride 99 (98-107) mEq/L Carbon Dioxide 30 H (23-29) mEq/L BUN 11 (8-23) mg/dL Creatinine 1.99 H (0.60-1.20) mg/dL Est GFR ( Amer) 30 L (> 60) Est GFR (Non-Af Amer) 25 L (> 60) BUN/Creatinine Ratio 6 (6-26) Glucose 87 (70-105) mg/dL Calculated Osmolality 279 L (280-300) Lactic Acid 1.3 (0.5-2.2) mmol/L Calcium 7.5 L (8.6-10.3) mg/dL Total Bilirubin 0.4 (0.3-1.0) mg/dL Direct Bilirubin 0.1 (0.0-0.2) mg/dL Indirect Bilirubin 0.3 (0.0-1.2) mg/dL AST 10 L (13-39) Units/L ALT 6 L (7-52) Units/L Alkaline Phosphatase 80 (34-104) Units/L Troponin I 0.06 H* (< 0.04) ng/mL B-Natriuretic Peptide (Less than 100) pg/mL Serum Total Protein 5.6 L (6.4-8.9) g/dL Albumin 3.0 L (3.5-5.7) g/dL Globulin 2.6 (2.4-3.5) g/dL Albumin/Globulin Ratio 1.2 (1.1-2.2) 04/24/19 Range/Units 11:02 WBC (4.3-11.1) K/mcL RBC (3.82-4.97) M/mcL Hgb (11.5-15.4) g/dL Hct (35.3-44.9) % MCV (83.0-100.0) fL MCH (28.0-33.3) pg MCHC (31.6-35.5) g/dL RDW (11.5-14.5) % Plt Count (140-400) K/mcL MPV (9.4-12.4) fL Immature Gran % (0-4) % Seg Neutrophils % % Lymphocytes % % Monocytes % % Eosinophils % % Basophils % % Neutrophils # (1.6-8.9) K/mcL Lymphocytes # (0.6-4.6) K/mcL Monocytes # (0.0-1.3) K/mcL Eosinophils # (0.0-0.6) K/mcL Basophils # (0.0-0.2) K/mcL Sodium (136-145) mEq/L Potassium (3.5-5.1) mEq/L Chloride (98-107) mEq/L Carbon Dioxide (23-29) mEq/L BUN (8-23) mg/dL Creatinine (0.60-1.20) mg/dL Est GFR ( Amer) (> 60) Est GFR (Non-Af Amer) (> 60) BUN/Creatinine Ratio (6-26) Glucose (70-105) mg/dL Calculated Osmolality (280-300) Lactic Acid (0.5-2.2) mmol/L Calcium (8.6-10.3) mg/dL Total Bilirubin (0.3-1.0) mg/dL Direct Bilirubin (0.0-0.2) mg/dL Indirect Bilirubin (0.0-1.2) mg/dL AST (13-39) Units/L ALT (7-52) Units/L Alkaline Phosphatase (34-104) Units/L Troponin I (< 0.04) ng/mL B-Natriuretic Peptide 1819 H (Less than 100) pg/mL Serum Total Protein (6.4-8.9) g/dL Albumin (3.5-5.7) g/dL Globulin (2.4-3.5) g/dL Albumin/Globulin Ratio (1.1-2.2) - Radiology Data Radiology results reviewed: Yes I reviewed the patient's radiology results. - EKG Data EKG #1 EKG attestation: Yes I reviewed and interpreted this EKG. EKG results narrative: EKG obtained at 1106. Irregular rate and irregular rhythm of atrial fibrillation. Rate of 75. Normal intervals, normal axis, no ST elevations or depressions. No T-wave inversions. Compared to prior EKG from 04/21/2019.
[2019-04-24 11:17] LABS: Basophils % 0.3 %; Eosinophils # 0.1 K/mcL (0.0-0.6); Hematocrit 33.8 % (35.3-44.9); Hemoglobin 10.3 g/dL (11.5-15.4); Immature Granulocytes % 0.4 % (0-4); Lymphocytes % 8.8 %; Mean Corpuscular HGB Conc 30.5 g/dL (31.6-35.5); Mean Corpuscular Hemoglobin 25.8 pg (28.0-33.3); Mean Corpuscular Volume 84.5 fL (83.0-100.0); Mean Platelet Volume 9.8 fL (9.4-12.4); Monocytes # 0.9 K/mcL (0.0-1.3); Monocytes % 8.1 %; Neutrophils # 9.4 K/mcL (1.6-8.9); Platelet Count 247 K/mcL (140-400); Red Cell Distribution Width 18.8 % (11.5-14.5); Segmented Neutrophils % 81.4 %; White Blood Count 11.5 K/mcL (4.3-11.1)
[2019-04-24] MEDS ORDERED: Ipratropium/Albuterol Neb 3 ML IH STA (11:26)
[2019-04-24 11:36] LABS: Albumin/Globulin Ratio 1.2 (1.1-2.2); Bilirubin,Direct 0.1 mg/dL (0.0-0.2); Bilirubin,Indirect 0.3 mg/dL (0.0-1.2); Bilirubin,Total 0.4 mg/dL (0.3-1.0); Calcium 7.5 mg/dL (8.6-10.3); Globulin 2.6 g/dL (2.4-3.5); Potassium 3.3 mEq/L (3.5-5.1); Total Protein 5.6 g/dL (6.4-8.9)
[2019-04-24 12:29] LABS: Troponin I 0.06 ng/mL (< 0.04)
[2019-04-24] MEDS ORDERED: Naloxone 0.4 MG/ML INJ IVP PRN (14:01)
[2019-04-24] MEDS ORDERED: Acetaminophen 325 MG TABLET PO PRN (14:01)
[2019-04-24] MEDS ORDERED: Ipratropium/Albuterol Neb 3 ML IH SCH (14:15)
[2019-04-24 14:23] LABS: Bilirubin,Urine Negative (Negative); Blood,Urine Trace-lysed (Negative); Clarity,Urine Cloudy (Clear); Color,Urine Yellow (Yellow); Glucose,Urine (UA) Normal (Normal); Ketones,Urine Negative (Negative); Leukocyte Esterase,Urine Small (Negative); Nitrite,Urine Negative (Negative); PH,Urine 6.5 pH Units (5.0-8.0); Protein,Urine 100 mg/dL (Neg-Trace); Specific Gravity,Urine 1.015 (1.010-1.025); Urobilinogen,Urine Normal (Normal)
[2019-04-24 14:31] LABS: Squamous Epithelial Cell,Urine Present per lpf (None-Few)
[2019-04-24 14:32] LABS: Amorphous Sediment,Urine Present (Few); Bacteria,Urine Present per hpf (None-Few)
[2019-04-24 14:33] LABS: Transitional Epi Cells,Urine Present per hpf (None-Few); WBC,Urine Present per hpf (0-3)
[2019-04-24] MEDS: *HR* LORazepam 1 MG TABLET PO SCH ×2 (15:05→20:55)
--- NOTE | 2019-04-24 15:34 | Internal Med History&Physical ---
Date of Encounter: 04/24/19 Time of Encounter: 15:32 Internal Medicine - H&P: HPI Chief complaint: Rapid heart rate Admitted From: Emergency Dept Plans for Post Hospital Care: Home History of present illness: Ms. Weeks is a 68 year old female with hx of ESRD and CAD brought to ED by squad due to tachycardia. Ms Weeks presented to ED today with rapid irregular heart rate. She was recently discharged from the hospital yesterday. That admission was for volume overload. Today she was at dialysis and her noticed that she was tachycardic and irregular. He was worried about a fib and had her brought to [facility] ED. He said she was hypertensive as well and at one time her heart rate was recorded over 200. She denied palpitations or chest pain. No worsening of dyspnea. In ED her troponin came back slightly elevated and it was felt she should be placed in observation again. At this time she denies any new complaints. No CP or SOB now. Denies palpitation. No GI issues. Took meds today. Was taken off dialysis 45 min early today. Past Med Surg Social Fam HX - Past Medical History Medical history: aortic aneurysm, cancer, CHF, COPD, coronary artery disease, CVA, dialysis, hyperlipidemia, hypertension, myocardial infarction, other Additional medical history: Lung CA Psychiatric history: anxiety - Past Surgical History Surgical History: appendectomy, cholecystectomy Additional surgical history: left upper lobe removed. 3 cardiac stents. dialysis port right upper chest - Social History Smoking Status: Current every day smoker Smokeless Tobacco Status: No Alcohol use: none Drug use: none - Family History Mother Adopted: No Living Status: Hx Family Cardiac Disorders: Yes (CHF) Father Adopted: No Living Status: Hx Family Cardiac Disorders: Yes (CHF) Hx Family Respiratory Disorders: Yes (emphesema) Hx Family Neuromuscular Disorders: Yes (Parkinsons) Internal Medicine - H&P: Meds Atenolol [Tenormin] 50 mg PO BID 10/21/18 [History] Clopidogrel [Plavix] 75 mg PO DAILY 10/21/18 [History] amLODIPine [Norvasc] 5 mg PO DAILY 10/21/18 [History] Ipratropium/Albuterol Sulfate [Iprat-Albut 0.5-3(2.5) mg/3 ml] 3 ml IH 2-4XD 11/14/18 [History] Isosorbide MONOnitrate (24 HR) [Imdur] 30 mg PO DAILY 01/17/19 [History] OLANZapine [Zyprexa] 2.5 mg PO HS 02/04/19 [History] Apixaban [Eliquis] 2.5 mg PO BID #60 tablet 03/23/19 [Rx] Diltiazem CD (24hr) [Cardizem CD] 120 mg PO DAILY #30 cap.er.24h 03/25/19 [Rx] Furosemide [Lasix] 40 mg PO SUMO@0900 #30 tablet 03/25/19 [Rx] Bisacodyl [Woman's Laxative] 5 mg PO DAILY 04/24/19 [History] Epoetin Matthew [Procrit] 4,000 unit IJ DAILY 04/24/19 [History] Fluticasone/Salmeterol [Advair 250-50 Diskus] 1 each IH BID 04/24/19 [History] LORazepam [Ativan] 1 mg PO TID 04/24/19 [History] Losartan Potassium [Cozaar] 50 mg PO DAILY 04/24/19 [History] Allergy/AdvReac Type Severity Reaction Status Date / Time atorvastatin Allergy See Verified 04/21/19 04:05 Comments doxycycline Allergy Rash Verified 04/21/19 04:05 Sulfa (Sulfonamide Allergy Rash Verified 04/21/19 04:05 Antibiotics) codeine AdvReac Nausea Verified 04/21/19 04:05 hydrocodone [From Vicodin] AdvReac Irritable Verified 04/21/19 04:05 All Systems PM: A 10-system review of systems was performed and is negative for pertinent findings except as documented above in the HPI. - Constitutional Constitutional: fatigue, malaise - EENT Eyes: no change in vision, no loss of vision Ears: no decreased hearing Nose, mouth and throat: dry mouth, no sinus pain - Cardiovascular Cardiovascular ROS IM: dyspnea, dyspnea on exertion, no chest pain, no ortho pnea, no palpitations, no paroxysmal nocturnal dyspnea - Respiratory Respiratory: dyspnea on exertion, no cough, no hemoptysis, no wheezing, no chest congestion, no change in phlegm color - Gastrointestinal Gastrointestinal: no abdominal pain, no constipation, no diarrhea, no melena, no nausea, no vomiting - Genitourinary Genitourinary: no difficulty urinating, no urinary urgency - Musculoskeletal Musculoskeletal ROS IM: no arthralgias, no back pain, no muscle weakness - Integumentary Integumentary IM: no erythema, no rash - Neurological Neurological ROS: no confusion, no numbness, no restless legs, no vertigo - Endocrine Endocrine IM: no excessive sweating - Hematologic/Lymphatic Hematologic/Lymphatic: no easy bleeding - Allergic/Immunologic Allergic/Immunologic: no itchy eyes - Constitutional Vitals: Temp Pulse Resp BP Pulse Ox 99.5 F 85 18 150/74 97 04/24/19 14:40 04/24/19 14:40 04/24/19 14:40 04/24/19 14:40 04/24/19 14:40 General appearance: Present: A&O X 3, answers questions appropriately Exam: See below - Head Head exam: Present: atraumatic, normocephalic - Eye Eye exam: Present: EOMI, conjuntiva pink - ENT ENT exam: Present: mucous membranes dry - Neck Neck exam general surgery: Present: normal inspection, supple. Absent: lymphadenopathy, nuchal rigidity - Respiratory Respiratory exam: Present: CTAB. Absent: rales, rhonchi, wheezes - Cardiovascular Cardiovascular exam: Present: irregular rhythm. Absent: systolic murmur, tachycardia - GI/Abdominal GI/Abdominal exam: Present: normal bowel sounds, soft. Absent: mass, tenderness - Extremities Exam Extremities exam: Present: warm. Absent: pedal edema, tenderness - Neurological Exam Neurological exam: Present: alert, oriented X3 - Psychiatric Psychiatric exam: Present: flat affect - Skin Skin exam: Present: dry, warm. Absent: rash Internal Med - H&P Results - Labs CBC & Chem 7: 04/24/19 11:02 04/24/19 11:02 Labs: Short CBC 04/24/19 Range/Units 11:02 WBC 11.5 H (4.3-11.1) K/mcL Hgb 10.3 L (11.5-15.4) g/dL Hct 33.8 L (35.3-44.9) % Plt Count 247 (140-400) K/mcL Neutrophils # 9.4 H (1.6-8.9) K/mcL BMP 04/24/19 11:02 Sodium 135 L Potassium 3.3 L Chloride 99 Carbon Dioxide 30 H BUN 11 Creatinine 1.99 H Glucose 87 Calcium 7.5 L Cardiac Enzymes 04/24/19 Range/Units 11:02 Troponin I 0.06 H* (< 0.04) ng/mL Liver Function 04/24/19 Range/Units 11:02 Total Bilirubin 0.4 (0.3-1.0) mg/dL Direct Bilirubin 0.1 (0.0-0.2) mg/dL AST 10 L (13-39) Units/L ALT 6 L (7-52) Units/L Alkaline Phosphatase 80 (34-104) Units/L Albumin 3.0 L (3.5-5.7) g/dL Urine 04/24/19 Range/Units 14:05 Urine Color Yellow (Yellow) Urine Clarity Cloudy A (Clear) Urine pH 6.5 (5.0-8.0) pH Units Ur Specific [place] 1.015 (1.010-1.025) Urine Protein 100 H (Neg-Trace) mg/dL Urine Glucose (UA) Normal (Normal) mg/dL - Impressions ITS Impressions Chest X-Ray 04/24/19 10:53 IMPRESSION: Stable small bilateral pleural effusions. Stable mild pulmonary vascular congestion. D/ / 04/24/2019 11:36:14 Ifeanyi Morrell MD / [place] Interpreting Provider: Ifeanyi Morrell MD - Assessment and Plan (1) Demand ischemia Current Visit: Yes Status: Suspected Assessment and plan: Pt developed tachycardia on monitor at dialysis - no symptoms Troponin in ED slightly elevated Place in observation. Cycle troponin requests cardiology see patient for further evaluation due to stent in the past. He is also concerned about return of atrial fib. Continue other home meds at this time. (2) Congestive heart failure Current Visit: No Status: Chronic Assessment and plan: Pt has prior hx of systolic CHF with EF 40%. Continue home lasix dose at this time. Does not appear volume overloaded despite shortened dialysis of 45 min Qualifiers: Heart failure type: systolic Heart failure chronicity: chronic Qualified Code(s): I50.22 - Chronic systolic (congestive) heart failure (3) Chronic respiratory failure with hypoxia Current Visit: Yes Status: Chronic Assessment and plan: Continue oxygen supplementation (4) ESRD (end stage renal disease) on dialysis Current Visit: No Status: Chronic Assessment and plan: Nephrology consulted. (5) Afib Current Visit: No Status: Chronic Assessment and plan: concerned she is in atrial fibrillation again. EKG from ED shows sinus with PACs. Continue tele monitor and medications. Qualifiers: Atrial fibrillation type: paroxysmal Qualified Code(s): I48.0 - Paroxysmal atrial fibrillation (6) Anemia Current Visit: No Status: Suspected Assessment and plan: Continue supportive care. Qualifiers: Anemia type: due to chronic kidney disease Chronic kidney disease stage: on chronic dialysis Qualified Code(s): N18.6 - End stage renal disease; D63.1 - Anemia in chronic kidney disease; Z99.2 - Dependence on renal dialysis (7) CAD (coronary artery disease) Current Visit: No Status: Chronic Assessment and plan: Chronic issue. Follows with Dr. Oswald Will ask cardiology for input per request. Qualifiers: Coronary Disease-Associated Artery/Lesion type: [place] artery [place] vs. transplanted heart: [place] heart Associated angina: without angina Qualified Code(s): I25.10 - Atherosclerotic heart disease of [place] coronary artery without angina pectoris (8) HTN (hypertension) Current Visit: No Status: Chronic Assessment and plan: Continue home meds at this time. Qualifiers: Hypertension type: essential hypertension Qualified Code(s): I10 - Essential (primary) hypertension (9) Hypothyroidism Current Visit: No Status: Chronic Assessment and plan: Continue home thyroid replacement Qualifiers: Hypothyroidism type: acquired Qualified Code(s): E03.9 - Hypothyroidism, unspecified (10) Tobacco abuse Current Visit: Yes Status: Chronic Assessment and plan: cessation counselling (11) Severe protein-calorie malnutrition Current Visit: Yes Status: Chronic Assessment and plan: Nutritional support. - Time Spent With Patient Total time spent is greater than 50% in coordination of care (as documented) at patient's floor/unit and/or counseling patient:
[2019-04-24] MEDS: Ipratropium/Albuterol Neb 3 ML IH SCH ×2 (15:35→22:44)
--- NOTE | 2019-04-24 16:35 | Emergency Department Note ---
Disposition Clinical Impression: SOB (shortness of breath), Elevated troponin Disposition: Admitted As Inpatient Condition: Fair Time of Disposition: 14:36 General Adult HPI - General Chief complaint: ED Shortness of Breath/Dyspnea Stated complaint: Weakness Time Seen by Provider: 04/24/19 10:09 Source: patient Mode of arrival: ambulatory Limitations: no limitations - History of Present Illness Pain Scale: 0 - Related Data Home Medications Medication Instructions Recorded Confirmed Atenolol [Tenormin] 50 mg PO BID 10/21/18 04/24/19 Clopidogrel [Plavix] 75 mg PO DAILY 10/21/18 04/24/19 amLODIPine [Norvasc] 5 mg PO DAILY 10/21/18 04/24/19 Ipratropium/Albuterol Sulfate 3 ml IH 2-4XD 11/14/18 04/24/19 [Iprat-Albut 0.5-3(2.5) mg/3 ml] Isosorbide MONOnitrate (24 HR) 30 mg PO DAILY 01/17/19 04/24/19 [Imdur] OLANZapine [Zyprexa] 2.5 mg PO HS 02/04/19 04/24/19 Bisacodyl [Woman's Laxative] 5 mg PO DAILY 04/24/19 04/24/19 Epoetin Matthew [Procrit] 4,000 unit IJ DAILY 04/24/19 04/24/19 Fluticasone/Salmeterol [Advair 1 each IH BID 04/24/19 04/24/19 250-50 Diskus] LORazepam [Ativan] 1 mg PO TID 04/24/19 04/24/19 Losartan Potassium [Cozaar] 50 mg PO DAILY 04/24/19 04/24/19 Previous Rx's Medication Instructions Recorded Apixaban [Eliquis] 2.5 mg PO BID #60 tablet 03/23/19 Diltiazem CD (24hr) [Cardizem CD] 120 mg PO DAILY #30 cap.er.24h 03/25/19 Furosemide [Lasix] 40 mg PO SUMO@0900 #30 tablet 03/25/19 Allergies Allergy/AdvReac Type Severity Reaction Status Date / Time atorvastatin Allergy See Verified 04/21/19 04:05 Comments doxycycline Allergy Rash Verified 04/21/19 04:05 Sulfa (Sulfonamide Allergy Rash Verified 04/21/19 04:05 Antibiotics) codeine AdvReac Nausea Verified 04/21/19 04:05 hydrocodone [From Vicodin] AdvReac Irritable Verified 04/21/19 04:05 Constitutional: Denies: fever, chills, weakness Eyes: Denies: eye pain, eye discharge ENT ED: Denies: ear pain, throat pain, dental pain Cardiovascular: Denies: chest pain, palpitations, dyspnea on exertion Respiratory: Denies: cough, dyspnea, wheezes Gastrointestinal: Denies: abdominal pain, nausea, vomiting Genitourinary: Denies: urgency, dysuria, frequency Musculoskeletal: Denies: back pain, neck pain, joint swelling Integumentary: Denies: rash, abrasion, lesions Neurological: Denies: headache, weakness, numbness Psychiatric: Denies: anxiety, depression, suicidal thoughts Endocrine: Denies: fatigue, heat or cold intolerance, polydipsia Hematological/Lymphatic: Denies: easy bleeding, easy bruising, lymphadenopathy Past Medical History - Past Medical History Medical history: Reports: aortic aneurysm, cancer, CHF, COPD, coronary artery disease, CVA, dialysis, hyperlipidemia, hypertension, myocardial infarction, other Surgical history: Reports: appendectomy, cholecystectomy Psychiatric history: Reports: anxiety - Social History Smoking Status: Current every day smoker Smokeless Tobacco Status: No Alcohol use: Reports: none Drug use: Reports: none Physical Exam - General Limitations: no limitations General appearance: alert, in no apparent distress Course Vital Signs Temperature 98.7 F 04/24/19 10:07 Pulse Rate 83 04/24/19 10:07 Respiratory Rate 22 04/24/19 10:07 Blood Pressure 125/97 04/24/19 10:07 O2 Sat by Pulse Oximetry 100 04/24/19 10:07 Temperature 99.5 F 04/24/19 14:40 Pulse Rate 85 04/24/19 14:40 Respiratory Rate 18 04/24/19 14:40 Blood Pressure 150/74 04/24/19 14:40 O2 Sat by Pulse Oximetry 97 04/24/19 14:40 Oxygen Delivery Oxygen Delivery Room Air Medical Decision Making - Lab Data Result diagrams: 04/24/19 11:02 04/24/19 11:02 Lab Results 04/24/19 04/24/19 04/24/19 Range/Units 11:02 11:02 11:02 WBC 11.5 H (4.3-11.1) K/mcL RBC 4.00 (3.82-4.97) M/mcL Hgb 10.3 L (11.5-15.4) g/dL Hct 33.8 L (35.3-44.9) % MCV 84.5 (83.0-100.0) fL MCH 25.8 L (28.0-33.3) pg MCHC 30.5 L (31.6-35.5) g/dL RDW 18.8 H (11.5-14.5) % Plt Count 247 (140-400) K/mcL MPV 9.8 (9.4-12.4) fL Immature Gran % 0.4 (0-4) % Seg Neutrophils % 81.4 % Lymphocytes % 8.8 % Monocytes % 8.1 % Eosinophils % 1.0 % Basophils % 0.3 % Neutrophils # 9.4 H (1.6-8.9) K/mcL Lymphocytes # 1.0 (0.6-4.6) K/mcL Monocytes # 0.9 (0.0-1.3) K/mcL Eosinophils # 0.1 (0.0-0.6) K/mcL Basophils # 0.0 (0.0-0.2) K/mcL Sodium 135 L (136-145) mEq/L Potassium 3.3 L (3.5-5.1) mEq/L Chloride 99 (98-107) mEq/L Carbon Dioxide 30 H (23-29) mEq/L BUN 11 (8-23) mg/dL Creatinine 1.99 H (0.60-1.20) mg/dL Est GFR ( Amer) 30 L (> 60) Est GFR (Non-Af Amer) 25 L (> 60) BUN/Creatinine Ratio 6 (6-26) Glucose 87 (70-105) mg/dL Calculated Osmolality 279 L (280-300) Lactic Acid 1.3 (0.5-2.2) mmol/L Calcium 7.5 L (8.6-10.3) mg/dL Total Bilirubin 0.4 (0.3-1.0) mg/dL Direct Bilirubin 0.1 (0.0-0.2) mg/dL Indirect Bilirubin 0.3 (0.0-1.2) mg/dL AST 10 L (13-39) Units/L ALT 6 L (7-52) Units/L Alkaline Phosphatase 80 (34-104) Units/L Troponin I 0.06 H* (< 0.04) ng/mL B-Natriuretic Peptide (Less than 100) pg/mL Serum Total Protein 5.6 L (6.4-8.9) g/dL Albumin 3.0 L (3.5-5.7) g/dL Globulin 2.6 (2.4-3.5) g/dL Albumin/Globulin Ratio 1.2 (1.1-2.2) 04/24/19 Range/Units 11:02 WBC (4.3-11.1) K/mcL RBC (3.82-4.97) M/mcL Hgb (11.5-15.4) g/dL Hct (35.3-44.9) % MCV (83.0-100.0) fL MCH (28.0-33.3) pg MCHC (31.6-35.5) g/dL RDW (11.5-14.5) % Plt Count (140-400) K/mcL MPV (9.4-12.4) fL Immature Gran % (0-4) % Seg Neutrophils % % Lymphocytes % % Monocytes % % Eosinophils % % Basophils % % Neutrophils # (1.6-8.9) K/mcL Lymphocytes # (0.6-4.6) K/mcL Monocytes # (0.0-1.3) K/mcL Eosinophils # (0.0-0.6) K/mcL Basophils # (0.0-0.2) K/mcL Sodium (136-145) mEq/L Potassium (3.5-5.1) mEq/L Chloride (98-107) mEq/L Carbon Dioxide (23-29) mEq/L BUN (8-23) mg/dL Creatinine (0.60-1.20) mg/dL Est GFR ( Amer) (> 60) Est GFR (Non-Af Amer) (> 60) BUN/Creatinine Ratio (6-26) Glucose (70-105) mg/dL Calculated Osmolality (280-300) Lactic Acid (0.5-2.2) mmol/L Calcium (8.6-10.3) mg/dL Total Bilirubin (0.3-1.0) mg/dL Direct Bilirubin (0.0-0.2) mg/dL Indirect Bilirubin (0.0-1.2) mg/dL AST (13-39) Units/L ALT (7-52) Units/L Alkaline Phosphatase (34-104) Units/L Troponin I (< 0.04) ng/mL B-Natriuretic Peptide 1819 H (Less than 100) pg/mL Serum Total Protein (6.4-8.9) g/dL Albumin (3.5-5.7) g/dL Globulin (2.4-3.5) g/dL Albumin/Globulin Ratio (1.1-2.2) Attestation Statement - Attestation Attestation: I examined this patient and my medical decision-making was reviewed with the Resident Physician. I agree with the documented findings, disposition and treatment plan as described except to the extent set forth below. End-stage renal disease patient who had profound weakness and shortness of breath, was sent here from dialysis for evaluation. Did not have chest pain. Troponin is 0.06, the last several troponins have been normal for her. She did not want to stay in the hospital, but her and I was able to convince her to stay. Accepted by the hospitalist for admission. Hemodynamically stable while in the emergency department. I was present for the resident's EKG interpretation, no acute ischemic changes noted.
[2019-04-24] MEDS: Apixaban 2.5 MG TABLET PO SCH (20:55)
[2019-04-24] MEDS: OLANZapine 5 MG TAB.RAPDIS PO SCH (20:55)
[2019-04-24] MEDS: Budesonide/Formoterol 80/4.5 1 PUFF INH IH SCH (22:42)
[2019-04-25 02:30] LABS: Hematocrit 28.9 % (35.3-44.9); Hemoglobin 9.1 g/dL (11.5-15.4); Mean Corpuscular HGB Conc 31.5 g/dL (31.6-35.5); Mean Corpuscular Hemoglobin 26.1 pg (28.0-33.3); Mean Corpuscular Volume 82.8 fL (83.0-100.0); Mean Platelet Volume 9.6 fL (9.4-12.4); Platelet Count 222 K/mcL (140-400); Red Blood Count 3.49 M/mcL (3.82-4.97); Red Cell Distribution Width 18.7 % (11.5-14.5); White Blood Count 10.7 K/mcL (4.3-11.1)
[2019-04-25 02:50] LABS: Calcium 7.6 mg/dL (8.6-10.3); Magnesium 1.3 mg/dL (1.6-2.6); Phosphorous 2.1 mg/dL (2.7-4.5); Potassium 3.7 mEq/L (3.5-5.1)
[2019-04-25] MEDS: Ipratropium/Albuterol Neb 3 ML IH SCH ×4 (03:27→22:33)
--- NOTE | 2019-04-25 08:13 | Cardiology Consult Note ---
<Rosales Hou - Last Filed: 04/25/19 10:50> Date of Encounter: 04/25/19 Time of Encounter: 08:27 Assessment and Plan (1) Afib Current Visit: No Status: Chronic Per concern for tachycardic event while at hemodialysis; he stated HR in 200s; pt. denied chest pain, palpitations, increased dyspnea. EKG in ED showed sinus rhythm with PACs. Current telemetry sinus rhythm; ave HR 77 with occasional PACs, PVCs, and no significant pauses. RRR on exam. Potassium stable 3.7; mag 1.3; recommend replacement or possible consult to nephrology for recs. TSH stable recent visit 5.554. Discussed and reviewed with Dr. Mackenzie, unfortunately there are no ECG or telemetry strips available for review with elevated HR 200s. A-fib RVR noted during stay. Concern for A fib RVR vs. possible ventricular tachyarrythmia d/t cardiomyopathy. On home cardizem CD 120 mg daily, Atenolol 50mg BID. Will adjust meds to treat afib and possible tachyarrhythmia as well optimize medical management for CMP. Will stop cardizem and atenolol. Will start amiodarone 200mg, coreg 25mg PO BID (equivalent dose of BB). Monitor BP and tele, will follow. Eliquis 2.5mg BID home dose for anticoagulation. H&H stable. Qualifiers: Atrial fibrillation type: paroxysmal Qualified Code(s): I48.0 - Paroxysmal atrial fibrillation (2) Elevated troponin Current Visit: Yes Status: Acute Elevated troponins of 0.06, 0.05, 0.04, 0.03 possible multifactoral demand ischemia related to recent admission this week for fluid overlaod, and treated w ith hemodialysis for ESRD. Deneis chest pain, palpitations, increased dyspnea. Will discuss with Dr. Mackenzie; likely not related to ACS. No cardiac rehab consult warranted. (3) CAD (coronary artery disease) Current Visit: No Status: Chronic Previous [facility] 10/21/18 PTCA/Drug-Eluting Stent placement in the Diagonal. * Left Main Coronary Artery The LMCA is angiographically free of disease. * Left Anterior Descending There is a 25% stenosis in the Mid LAD. There is a 80% stenosis in the 1st Diagonal. The lesion has a LENNY flow of 3. An intervention was performed on the 1st Diagonal with a final stenosis of 0%. There were no lesion complications. The final LENNY flow was 3. * Circumflex There is a 40% stenosis in the Proximal Circumflex. * Right Coronary Artery RCA is known to be occluded. RCA not visualized during this procedure. There is a 100% stenosis in the Proximal RCA. The lesion has collaterals which feed from left to right. On BB, Pavix, ARB, continue. Not on statin d/t allergy. ASA recently stopped per Dr. Oswald seen 04/11/19 outpatient for risk of bleeding triple therapy. Qualifiers: Coronary Disease-Associated Artery/Lesion type: [place] artery [place] vs. transplanted heart: [place] heart Associated angina: without angina Qualified Code(s): I25.10 - Atherosclerotic heart disease of [place] coronary artery without angina pectoris (4) Congestive heart failure (CHF) Current Visit: No Status: Resolved Recent admission 04/23/19 for SOB/fluid overload s/p hemodialysis and ultrafiltration;able to remove 6.6 L; S/p exchange of tunneled line. Received scheduled outpatinet hemodialysis 04/24/[address] with [address] 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 03/22/19 Echo; EF 40%. Atypical septal motion consistent with bundle branch block. Severe global left ventricular systolic dysfunction. Hypokinetic Left Ventricular Wall Motion: CXR 04/24/19 shows stable mild pulmonary vascular congestion. Currently appears euvolemic on exam; cumulative I/Os = 0 d/t no recordings. On BB, ARB, lasix PO, continue. Recs to repeat echo as outpatient once meds optimized. Qualifiers: Heart failure type: systolic Heart failure chronicity: acute on chronic Qualified Code(s): I50.23 - Acute on chronic systolic (congestive) heart failure (5) ESRD (end stage renal disease) Current Visit: Yes Status: Acute Follows with nephrology; on hemodialysis. Discussion w patient/family: The assessment and plan as outlined above was discussed with the patient and/or family members who expressed understanding and agreement. All questions were answered. Thank you for involving us in the care of your patient. Please call with any questions. History of Present Illness Consult date: 04/25/19 Consult reason: tachycardia/ irregular heart rate Chief complaint: rapid heart rate History of present illness: Ms. Weeks is a 68 year old female PMH of aortic aneurysm, COPD, CVA, CAD, HLD, CHF, A Fib on Eliquis (ASA stopped per Dr. Oswald risk of bleed triple therapy), HTN, ESRD; recent discharge from hospital for volume overload r/t CHF exacerbation. Presented today for rapid heart rate while at dialysis. cncerned at dialysis for hypertension, rapid heart rate and history of irregular rhythm. Apparent HR reached 200s. Pt. denies any palpitations, chest pain, or increased dyspnea. Aggravated with HD, denies other alleviating factors. Previous concern for GI bleed. Past Med Surg Social Fam HX - Past Medical History Medical history: aortic aneurysm, cancer, CHF, COPD, coronary artery disease, CVA, dialysis, hyperlipidemia, hypertension, myocardial infarction, other Additional medical history: Lung CA Psychiatric history: anxiety - Past Surgical History Surgical History: appendectomy, cholecystectomy Additional surgical history: left upper lobe removed. 3 cardiac stents. dialysis port right upper chest - Social History Smoking Status: Current every day smoker Smokeless Tobacco Status: No Alcohol use: none Drug use: none - Family History Mother Adopted: No Living Status: Hx Family Cardiac Disorders: Yes (CHF) Father Adopted: No Living Status: Hx Family Cardiac Disorders: Yes (CHF) Hx Family Respiratory Disorders: Yes (emphesema) Hx Family Neuromuscular Disorders: Yes (Parkinsons) Medications and Allergies Atenolol [Tenormin] 50 mg PO BID 10/21/18 [History] Clopidogrel [Plavix] 75 mg PO DAILY 10/21/18 [History] amLODIPine [Norvasc] 5 mg PO DAILY 10/21/18 [History] Ipratropium/Albuterol Sulfate [Iprat-Albut 0.5-3(2.5) mg/3 ml] 3 ml IH 2-4XD 11/14/18 [History] Isosorbide MONOnitrate (24 HR) [Imdur] 30 mg PO DAILY 01/17/19 [History] OLANZapine [Zyprexa] 2.5 mg PO HS 02/04/19 [History] Apixaban [Eliquis] 2.5 mg PO BID #60 tablet 03/23/19 [Rx] Diltiazem CD (24hr) [Cardizem CD] 120 mg PO DAILY #30 cap.er.24h 03/25/19 [Rx] Furosemide [Lasix] 40 mg PO SUMO@0900 #30 tablet 03/25/19 [Rx] Epoetin Matthew [Procrit] 4,000 unit IJ AD 04/24/19 [History] Losartan Potassium [Cozaar] 25 mg PO BID 04/24/19 [History] Albuterol Sulfate [Ventolin Hfa] 2 puff IH Q4H PRN 04/25/19 [History] Ferrous Sulfate [Iron] 325 mg PO TU 04/25/19 [History] Fluticasone/Umeclidin/Vilanter [Trelegy Ellipta 100-62.5-25] 1 puff IH 1200 04/25/19 [History] LORazepam [Ativan] 0.5 mg PO TID PRN 04/25/19 [History] Levothyroxine [Synthroid] 75 mcg PO 0630 04/25/19 [History] Midodrine [ProAmatine] 5 mg PO TUTHSA 04/25/19 [History] Ondansetron HCl [Zofran] 4 mg PO Q6HR PRN 04/25/19 [History] Allergy/AdvReac Type Severity Reaction Status Date / Time atorvastatin Allergy See Verified 04/21/19 04:05 Comments doxycycline Allergy Rash Verified 04/21/19 04:05 Sulfa (Sulfonamide Allergy Rash Verified 04/21/19 04:05 Antibiotics) codeine AdvReac Nausea Verified 04/21/19 04:05 hydrocodone [From Vicodin] AdvReac Irritable Verified 04/21/19 04:05 All Systems Review: The remainder of the systems were reviewed and are negative - Cardiovascular Cardiovascular: as per HPI Physical Examination Vital Signs, Last 4 Hours Temp Pulse Resp BP Pulse Ox 04/25/19 07:28 98.6 F 70 17 154/82 100 04/25/19 04:19 98.5 F 72 16 130/72 100 Results 04/25/19 02:00 04/25/19 02:00 Lab Results Laboratory Tests 04/24/19 04/25/19 11:02 02:00 Hgb 10.3 L 9.1 L Laboratory Tests 04/25/19 02:00 BUN 16 Creatinine 2.99 H Calcium 7.6 L Phosphorus 2.1 L Magnesium 1.3 L 04/24/19 04/24/19 04/24/19 11:02 14:49 20:04 Troponin I 0.06 H* 0.05 H* 0.04 H* 04/25/19 02:00 Troponin I 0.03 Laboratory Tests 11/22/18 02/17/19 03/20/19 13:49 01:40 05:14 B-Natriuretic Peptide 1435 H 3913 H 3821 H 04/21/19 04/24/19 04:42 11:02 B-Natriuretic Peptide 3249 H 1819 H Selected Entries 04/24/19 14:40 04/24/19 18:42 04/24/19 23:45 Blood Pressure 150/74 132/64 146/73 04/25/19 04:19 04/25/19 07:28 Blood Pressure 130/72 154/82 Impressions Chest X-Ray 04/24/19 10:53 IMPRESSION: Stable small bilateral pleural effusions. Stable mild pulmonary vascular congestion. D/ : / 04/24/2019 11:36:14 Ifeanyi Morrell MD / archanayer Interpreting Provider: Ifeanyi Morrell MD Active Medications Acetaminophen (Tylenol) 650 mg PO Q6HR PRN PRN Reason: Mild Pain/Fever Stop: 10/24/19 14:02 Albuterol/Ipratropium (Duoneb) 3 ml IH [id number] [facility] Stop: 10/24/19 16:01 Last Admin: 04/25/19 03:27 Dose: 3 ml Documented by: Amlodipine Besylate (Norvasc) 5 mg PO DAILY [facility]; Protocol Stop: 10/25/19 09:01 Apixaban (Eliquis) 2.5 mg PO BID [facility]; Protocol Stop: 10/24/19 21:01 Last Admin: 04/24/19 20:55 Dose: 2.5 mg Documented by: Atenolol (Tenormin) 50 mg PO BID [facility] Stop: 10/24/19 21:01 Last Admin: 04/24/19 20:55 Dose: 50 mg Documented by: Bisacodyl (Dulcolax) 5 mg PO DAILY [facility] Stop: 10/25/19 09:01 Budesonide/Formoterol Fumarate (Symbicort) 2 puff IH BIDR [facility] Stop: 10/24/19 22:01 Last Admin: 04/24/19 22:42 Dose: 2 puff Documented by: Clopidogrel Bisulfate (Plavix) 75 mg PO DAILY [facility] Stop: 10/25/19 09:01 Diltiazem HCl (Cardizem Cd) 120 mg PO DAILY [facility] Stop: 10/25/19 09:01 Furosemide (Lasix) 40 mg PO SUMO@0900 [facility] Stop: 10/27/19 09:01 Isosorbide Mononitrate (Imdur) 30 mg PO DAILY [facility] Stop: 10/25/19 09:01 Lorazepam (Ativan) 1 mg PO TID [facility] Stop: 10/24/19 15:01 Last Admin: 04/24/19 20:55 Dose: 1 mg Documented by: Losartan Potassium (Cozaar) 50 mg PO DAILY [facility] Stop: 10/25/19 09:01 Naloxone HCl (Narcan) 0.4 mg IVP Q2MPRN PRN PRN Reason: SEE COMMENTS Stop: 10/24/19 14:02 Olanzapine (Zyprexa Zydis) 2.5 mg PO HS [facility] Stop: 10/24/19 21:01 Last Admin: 04/24/19 20:55 Dose: 2.5 mg Documented by: - Imaging and Cardiology Chest Xray: report reviewed Echo: report reviewed Cardiac cath: report reviewed - EKG Interpretation EKG results cardiology: sinus rhythm, no diagnostic ischemia (SInus rhythm with occasional PACs and PVCs) Consult Discharge Plan - Plan Referrals: Efrem,Patricia Dcik CNP [Primary Care Provider] - Cardiac Rehab - Cardiac Rehab Cardiac Rehab: Phase I consult completed. Patient was educated on why Cardiac Rehabilitation is beneficial to his/her health. Participating in a cardiac rehabilitation can improve the following: strengthen your heart, improve ejection fraction, weight reduction, decrease cholesterol levels, lower blood pressure, lower blood sugar, improve stamina, and enhance self-image. If he/she has any questions, they were instructed to call [facility] at [phone]. <Mesfin A - Last Filed: 04/25/19 12:02> Date of Encounter: 04/25/19 - Attending Attestation I have personally performed a face to face evaluation on this patient. I have reviewed and agree with the documented findings and care plan as documented by the SECURED ENTRANCE MONITOR. History and Exam by me shows: 68-year-old female with history of ESRD on dialysis, ischemic cardiomyopathy with LVEF of 40%, admitted for suspicion of tachyarrhythmia unclear if it is A. fib with RVR. Agree with optimization of GDMT with Coreg in place of atenolol. Continue ARB. Discontinue Cardizem due to chronic systolic heart failure. Recommend adding amiodarone 200 mg daily Thanks for the consult, please call with questions. Perry Mackenzie MD FAC Assessment and Plan Discussion w patient/family: The assessment and plan as outlined above was discussed with the patient and/or family members who expressed understanding and agreement. All questions were answered. Thank you for involving us in the care of your patient. Please call with any questions. History of Present Illness History of present illness: Ms. Weeks is a 68 year old female All Systems Review: The remainder of the systems were reviewed and are negative Physical Examination Vital Signs, Last 4 Hours Temp Pulse Resp BP Pulse Ox 04/25/19 11:13 98.5 F 73 20 126/64 100 04/25/19 10:36 17 97 Results 04/25/19 02:00 04/25/19 02:00 Lab Results 04/24/19 04/24/19 04/24/19 11:02 14:49 20:04 WBC Hgb Hct Plt Count Sodium 135 L Potassium 3.3 L Chloride 99 Carbon Dioxide 30 H BUN 11 Creatinine 1.99 H Glucose 87 Calcium 7.5 L Magnesium Total Bilirubin 0.4 AST 10 L ALT 6 L Alkaline Phosphatase 80 Troponin I 0.06 H* 0.05 H* 0.04 H* 04/25/19 04/25/19 04/25/19 02:00 02:00 02:00 WBC 10.7 Hgb 9.1 L Hct 28.9 L Plt Count 222 Sodium 128 L Potassium 3.7 Chloride 98 Carbon Dioxide 25 BUN 16 Creatinine 2.99 H Glucose 92 Calcium 7.6 L Magnesium 1.3 L Total Bilirubin AST ALT Alkaline Phosphatase Troponin I 0.03 Cardiac Rehab - Cardiac Rehab Cardiac Rehab: Phase I consult completed. Patient was educated on why Cardiac Rehabilitation is beneficial to his/her health. Participating in a cardiac rehabilitation can improve the following: strengthen your heart, improve ejection fraction, weight reduction, decrease cholesterol levels, lower blood pressure, lower blood sugar, improve stamina, and enhance self-image. If he/she has any questions, they were instructed to call [facility] at [phone].
--- NOTE | 2019-04-25 08:53 | Electrocardiograph Report ---
[place] [id number] Test Date: 2019-04-24 Pat Name: Clemencia Weeks Department: [id number] Room: 2A22 Gender: F [employer]: : 1950 Requested By: [id number] Order Number: [id number] Reading MD: Musa Nunez Measurements Intervals [place] Rate: 75 P: MD: QRS: 85 QRSD: 92 T: 69 QT: 427 QTc: 477 Interpretive Statements Sinus rhythm with frequent PACs Borderline right axis deviation Probable LVH with secondary repol abnrm Electronically Signed On 04-25-2019 8:52:11 EDT by Musa Nunez
[2019-04-25] MEDS ORDERED: Diltiazem CD (24hr) 120 MG CAPSULE PO SCH (09:00)
[2019-04-25] MEDS: Apixaban 2.5 MG TABLET PO SCH ×2 (09:11→21:13)
[2019-04-25] MEDS: Isosorbide MONOnitrate (24 HR) 30 MG TAB.ER.24H PO SCH (09:11)
[2019-04-25] MEDS: amLODIPine 5 MG TABLET PO SCH (09:11)
[2019-04-25] MEDS: *HR* LORazepam 1 MG TABLET PO SCH (09:11)
[2019-04-25] MEDS: Budesonide/Formoterol 80/4.5 1 PUFF INH IH SCH (10:37)
[2019-04-25] MEDS: Furosemide 40 MG TABLET PO SCH (13:01)
[2019-04-25] MEDS: *HR* Amiodarone 200 MG TABLET PO SCH (13:01)
--- NOTE | 2019-04-25 13:58 | Nephrology Consult Note ---
Date of Encounter: 04/25/19 Time of Encounter: 13:57 Assessment and Plan (1) ESRD (end stage renal disease) on dialysis Current Visit: Yes Status: Chronic History of ESRD on dialysis since 10/2018 after IV contrast-induced injury. Follows with [facility] D[facility] TTS [facility] New right chest wall permacath reported to be working well As she has had multiple hospitalizations for fluid overload will increase Lasix to 40 mg daily, ensuring that she takes this dose after her dialysis on TTS. Strict I and O's Fluid restriction to 1.5 L Will plan on gentle dialysis tomorrow (2) Hyponatremia Current Visit: Yes Status: Acute Likely secondary to polydipsia Baseline sodium around 132, currently 128. Admits to large PO fluid intake after dialysis yesterday Recommend 1.5 L fluid restriction to be continued indefinitely (3) Afib Current Visit: Yes Status: Chronic Presented after becoming tachycardic during dialysis yesterday Recent diagnosis of atrial fibrillation Medical management per cardiology and primary teams Qualifiers: Qualified Code(s): I48.0 - Paroxysmal atrial fibrillation (4) Anemia Current Visit: Yes Status: Chronic History of anemia secondary to chronic kidney disease Baseline hemoglobin 9-10, currently 9.1 Will continue erythropoietin and IV iron supplementation during her dialysis treatments Qualifiers: Qualified Code(s): N18.6 - End stage renal disease; D63.1 - Anemia in chronic kidney disease; Z99.2 - Dependence on renal dialysis History of Present Illness - Reason for Consult Consult date: 04/25/19 end stage renal disease - Chief Complaint tachycardia, weakness - History of Present Illness Clemencia Weeks is a 68 y/o female who presented with dyspnea. She has a PMH of ESRD on TTS dialysis at [facility] using right chest wall permacath. She was previously determined to not be a candidate for fistula. She follows with [facility]. Other PMH includes reduced ejection fraction heart failure, atrial fibrillation, COPD on 2L O2, CAD s/p stenting x3, CVA, HLD, HTN, GERD and history of lung cancer s/p left upper lobe resection. She has required hemodialysis since October 2018 after having a contrast injury from [facility] in late September. She is a current smoker, denies ETOH or illicits, declines blood products for hoahaoism beliefs and lives with her who helps manage her medical care. She was recently admitted from home on 04/21/19 through 04/23/19 for fluid overload in setting of end-stage renal disease on dialysis and exacerbation of her heart failure most likely secondary to noncompliance with her diet. Her right chest permacath was noted to not be working well and it was exchanged via interventional radiology on 04/22/19. She was doing well on discharge until yesterday during dialysis. She states that she became weak, acutely short of breath and tachycardic when there was about 45 minutes left in her dialysis treatment. She noted that her heart rate was up to 200 bpm. They state that they were able to remove 0.75 kg and that the new right chest wall port was working well. Her called the squad and she presented to the ED. In the ED an EKG was obtained which showed atrial fibrillation, she had a mildly elevated troponin at 0.06 which has trended down, BNP elevated at 1819 which is down trending from last admission, renal function at her baseline, she continues to make some urine, chest x-ray showed stable bilateral pleural effusions. At bedside today she states that she was fatigued after arriving at the hospital. She states she was very thirsty after being at dialysis and had consumed a large amount of fluids. She continues to feel weak, fatigued, was noted to have a fever overnight at 100.4 which has resolved, as well as a nonproductive cough. She denies nausea, vomiting, chills, chest pain, palpitations, worsening shortness of breath, abdominal pain, diarrhea, constipation, dysuria, hematuria, calf pain. Past Med Surg Social Fam HX - Past Medical History Medical history: aortic aneurysm, cancer, CHF, COPD, coronary artery disease, CVA, dialysis, hyperlipidemia, hypertension, myocardial infarction, other Additional medical history: Lung CA Psychiatric history: anxiety - Past Surgical History Surgical History: appendectomy, cholecystectomy Additional surgical history: left upper lobe removed. 3 cardiac stents. dialysis port right upper chest - Social History Smoking Status: Current every day smoker Smokeless Tobacco Status: No Alcohol use: none Drug use: none - Family History Mother Adopted: No Living Status: Hx Family Cardiac Disorders: Yes (CHF) Father Adopted: No Living Status: Hx Family Cardiac Disorders: Yes (CHF) Hx Family Respiratory Disorders: Yes (emphesema) Hx Family Neuromuscular Disorders: Yes (Parkinsons) Medications and Allergies Atenolol [Tenormin] 50 mg PO BID 10/21/18 [History] Clopidogrel [Plavix] 75 mg PO DAILY 10/21/18 [History] amLODIPine [Norvasc] 5 mg PO DAILY 10/21/18 [History] Ipratropium/Albuterol Sulfate [Iprat-Albut 0.5-3(2.5) mg/3 ml] 3 ml IH 2-4XD 11/14/18 [History] Isosorbide MONOnitrate (24 HR) [Imdur] 30 mg PO DAILY 01/17/19 [History] OLANZapine [Zyprexa] 2.5 mg PO HS 02/04/19 [History] Apixaban [Eliquis] 2.5 mg PO BID #60 tablet 03/23/19 [Rx] Diltiazem CD (24hr) [Cardizem CD] 120 mg PO DAILY #30 cap.er.24h 03/25/19 [Rx] Furosemide [Lasix] 40 mg PO SUMO@0900 #30 tablet 03/25/19 [Rx] Epoetin Matthew [Procrit] 4,000 unit IJ AD 04/24/19 [History] Losartan Potassium [Cozaar] 25 mg PO BID 04/24/19 [History] Albuterol Sulfate [Ventolin Hfa] 2 puff IH Q4H PRN 04/25/19 [History] Ferrous Sulfate [Iron] 325 mg PO TU 04/25/19 [History] Fluticasone/Umeclidin/Vilanter [Trelegy Ellipta 100-62.5-25] 1 puff IH 1200 04/25/19 [History] LORazepam [Ativan] 0.5 mg PO TID PRN 04/25/19 [History] Levothyroxine [Synthroid] 75 mcg PO 0630 04/25/19 [History] Midodrine [ProAmatine] 5 mg PO TUTHSA 04/25/19 [History] Ondansetron HCl [Zofran] 4 mg PO Q6HR PRN 04/25/19 [History] Allergy/AdvReac Type Severity Reaction Status Date / Time atorvastatin Allergy See Verified 04/21/19 04:05 Comments doxycycline Allergy Rash Verified 04/21/19 04:05 Sulfa (Sulfonamide Allergy Rash Verified 04/21/19 04:05 Antibiotics) codeine AdvReac Nausea Verified 04/21/19 04:05 hydrocodone [From Vicodin] AdvReac Irritable Verified 04/21/19 04:05 Review of Systems Constitutional: fatigue, fever(s), no chills Nose, mouth and throat: no abnormal hearing, no headache(s) Cardiovascular: rapid heart rate, no chest pain, no dyspnea, no orthopnea, no palpitations, no pedal edema Respiratory: cough, no dyspnea Gastrointestinal: no abdominal pain, no constipation, no diarrhea, no melena, no nausea, no vomiting Genitourinary Female: no dysuria, no hematuria Musculoskeletal: no arthralgias, no myalgias Integumentary: no lesions, no rash, no swelling Neurological: weakness, no paresthesias, no syncope Psychiatric: no anxiety, no depression Endocrine: fatigue, polydipsia, no cold intolerance, no palpitations Hematologic/Lymphatic: easy bruising, no easy bleeding Allergic/Immunologic: no uticaria Exam - Vital Signs Vital signs: Initial Vital Signs Temp Pulse Resp BP Pulse Ox 98.7 F 83 22 125/97 100 04/24/19 10:07 04/24/19 10:07 04/24/19 10:07 04/24/19 10:07 04/24/19 10:07 Vital Signs - Last 8 Hours Temp Pulse Resp BP Pulse Ox 04/25/19 11:13 98.5 F 73 20 126/64 100 04/25/19 10:36 17 97 04/25/19 07:28 98.6 F 70 17 154/82 100 Intake and Output 04/24/19 04/25/19 04/25/19 23:59 07:59 15:59 Intake Total 60 / 60 Balance 60 / 60 Intake: Oral 60 / 60 Other: Weight 49.6 kg Patient Weight 04/25/19 23:59 Weight 49.6 kg - General Appearance Exam: Gen: Vitals noted. No acute distress. AAOx3, frail, appears fatigued HEENT: PERRL/EOMI, oropharynx clear, MMM, no cervical lymphadenopathy. Normocephalic, atraumatic Cardiac: RRR, no murmur, +S1/S2, radial and dorsal pedis pulses 3+ and symmetrical Pulmonary: Diminished breath sounds bilaterally, mildly coarse. Mild wheezing resolves after cough. Permacath in place on right chest wall, no erythema, edema or drainage, Tegaderm well sealed. Abdomen: soft, nontender, BS noted, no guarding, no rebound. MSK: Frail, no joint swelling noted Extremities: no BLE edema, no calf tenderness, no cyanosis Neuro: A&Ox3, moves all extremities, no focal deficits Psych: Appropriate mood and behavior Results - Lab Results 04/25/19 02:00 04/25/19 02:00 Most recent lab results 04/25/19 02:00 Calcium 7.6 L Phosphorus 2.1 L Magnesium 1.3 L Consult Discharge Plan - Plan Referrals: Patricia Topete FILM FLAT INSPECTOR [Primary Care Provider] -
--- NOTE | 2019-04-25 15:22 | Internal Med Progress Note ---
Hospitalist Progress Note - Encounter Date of Encounter: 04/25/19 Time of Encounter: 09:30 - Subjective Interval History: Ms. Weeks is currently in observation for possible atrial fibrillation and dyspnea. She remains moderate to high risk due to potential for worsening clinical status. Ms Weeks is doing OK. No new issues overnight. Slept OK. Appreciate cardiology input. No rapid atrial fibrillation noted. - Exam Vitals: Temp Pulse Resp BP Pulse Ox 98.5 F 73 20 126/64 100 04/25/19 11:13 04/25/19 11:13 04/25/19 11:13 04/25/19 11:13 04/25/19 11:13 Exam: General: Alert and oriented. Comfortable at this time. Skin: Normal color, no rash, H: Normocephalic. EENT: EOMI, Mucus membranes moist. Cardiovascular: Normal S1 & S2, Pulse regular. Lungs: Normal breath sounds, no wheezes Abdomen: Soft, non-tender, Normal bowel sounds. Extremities: No deformity, no edema or tenderness, Neurological: Normal cognition and motor skills. Pulses: radial pulses normal +2. Rest of the physical exam is non contributory - Assessment and Plan (1) Demand ischemia Current Visit: Yes Status: Suspected Assessment and Plan: Pt developed tachycardia on monitor at dialysis - no symptoms No significant elevation in troponin. Appreciate cardiology input. Meds adjusted today. (2) Congestive heart failure Current Visit: No Status: Chronic Assessment and Plan: Pt has prior hx of systolic CHF with EF 40%. Continue home lasix dose at this time. Not in acute exacerbation at this time. (3) Chronic respiratory failure with hypoxia Current Visit: Yes Status: Chronic Assessment and Plan: Continue oxygen supplementation (4) ESRD (end stage renal disease) on dialysis Current Visit: No Status: Chronic Assessment and Plan: Nephrology consulted. (5) Afib Current Visit: Yes Status: Chronic Assessment and Plan: concerned she is in atrial fibrillation again. Amiodarone added today and changed to Coreg for beta indira (6) Anemia Current Visit: Yes Status: Chronic Assessment and Plan: Continue supportive care. (7) CAD (coronary artery disease) Current Visit: No Status: Chronic Assessment and Plan: Chronic issue. Follows with Dr. Oswald (8) HTN (hypertension) Current Visit: No Status: Chronic Assessment and Plan: Essentially controlled. (9) Hypothyroidism Current Visit: No Status: Chronic Assessment and Plan: Continue home thyroid replacement (10) Tobacco abuse Current Visit: Yes Status: Chronic (11) Severe protein-calorie malnutrition Current Visit: Yes Status: Chronic Assessment and Plan: Nutritional support. - Time Spent with Patient Total time spent is greater than 50% in coordination of care (as documented) at patient's floor/unit and/or counseling patient: Internal Medicine: Result - Labs CBC & Chem 7: 04/25/19 02:00 04/25/19 02:00 Labs: Short CBC 04/25/19 Range/Units 02:00 WBC 10.7 (4.3-11.1) K/mcL Hgb 9.1 L (11.5-15.4) g/dL Hct 28.9 L (35.3-44.9) % Plt Count 222 (140-400) K/mcL BMP 04/25/19 02:00 Sodium 128 L Potassium 3.7 Chloride 98 Carbon Dioxide 25 BUN 16 Creatinine 2.99 H Glucose 92 Calcium 7.6 L Cardiac Enzymes 04/24/19 04/24/19 04/25/19 Range/Units 14:49 20:04 02:00 Troponin I 0.05 H* 0.04 H* 0.03 (< 0.04) ng/mL Consult Discharge Plan - Plan Referrals: Patricia Topete, CHIEF ENGINEER [Primary Care Provider] - (2) Congestive heart failure Qualifiers: Heart failure type: systolic Heart failure chronicity: chronic Qualified Code(s): I50.22 - Chronic systolic (congestive) heart failure (5) Afib Qualifiers: Atrial fibrillation type: paroxysmal Qualified Code(s): I48.0 - Paroxysmal atrial fibrillation (6) Anemia Qualifiers: Anemia type: due to chronic kidney disease Chronic kidney disease stage: on chronic dialysis Qualified Code(s): N18.6 - End stage renal disease; D63.1 - Anemia in chronic kidney disease; Z99.2 - Dependence on renal dialysis (7) CAD (coronary artery disease) Qualifiers: Coronary Disease-Associated Artery/Lesion type: q[place] artery [place] vs. transplanted heart: [place] heart Associated angina: without angina Qualified Code(s): I25.10 - Atherosclerotic heart disease of [place] coronary artery without angina pectoris (8) HTN (hypertension) Qualifiers: Hypertension type: essential hypertension Qualified Code(s): I10 - Essential (primary) hypertension (9) Hypothyroidism Qualifiers: Hypothyroidism type: acquired Qualified Code(s): E03.9 - Hypothyroidism, unspecified
[2019-04-25] MEDS ORDERED: Ondansetron ODT 4 MG TAB.RAPDIS PO PRN (15:38)
[2019-04-25] MEDS: *HR* LORazepam 0.5 MG TABLET PO PRN ×2 (16:11→21:58)
[2019-04-25] MEDS: OLANZapine 5 MG TAB.RAPDIS PO SCH (21:13)
[2019-04-25] MEDS: Budesonide/Formoterol 160/4.5 1 PUFF INH IH SCH (22:31)
[2019-04-26] MEDS: Ipratropium/Albuterol Neb 3 ML IH SCH ×3 (03:38→16:10)
[2019-04-26] MEDS ORDERED: 0.9 % Sodium Chloride 250 ML IVC PRN (06:59)
[2019-04-26] MEDS ORDERED: 0.9 % Sodium Chloride 1,000 ML PRIME SCH (07:00)
[2019-04-26 07:05] LABS: Hematocrit 28.2 % (35.3-44.9); Hemoglobin 8.8 g/dL (11.5-15.4); Mean Corpuscular HGB Conc 31.2 g/dL (31.6-35.5); Mean Corpuscular Hemoglobin 25.6 pg (28.0-33.3); Mean Platelet Volume 10.3 fL (9.4-12.4); Platelet Count 240 K/mcL (140-400); Red Blood Count 3.44 M/mcL (3.82-4.97); Red Cell Distribution Width 17.8 % (11.5-14.5); White Blood Count 9.7 K/mcL (4.3-11.1)
[2019-04-26 07:22] LABS: Potassium 4.1 mEq/L (3.5-5.1)
--- NOTE | 2019-04-26 09:06 | Cardiology Progress Note ---
Date of Encounter: 04/26/19 Time of Encounter: 09:03 Assessment and Plan (1) Afib Current Visit: Yes Status: Chronic Per concern for tachycardic event while at hemodialysis; he stated HR in 200s; pt. denied chest pain, palpitations, increased dyspnea. EKG in ED showed sinus rhythm with PACs. Current telemetry sinus rhythm; ave HR 77 with occasi onal PACs, PVCs, and no significant pauses. RRR on exam. Potassium stable 3.7; mag 1.3; recommend replacement or possible consult to nephrology for recs. TSH stable recent visit 5.554. Discussed and reviewed with Dr. Mackenzie yesterday, unfortunately there are no ECG or telemetry strips available for review with elevated HR 200s. Afib with RVR seen during stay. On Cardizem and atenolol at home. D/c. Medications changes made 04/25/19 amiodarone 200mg, coreg 25mg PO BID (equivalent dose of BB) started. Eliquis 2.5mg BID home dose for anticoagulation. H&H stable. No recurrent may seen overnight. B/p stable. Cardiology will sign off. Call with changes. Out-pt f/u. Qualifiers: Atrial fibrillation type: paroxysmal Qualified Code(s): I48.0 - Paroxysmal atrial fibrillation (2) CAD (coronary artery disease) Current Visit: No Status: Chronic Previous [facility] 10/21/18 PTCA/Drug-Eluting Stent placement in the Diagonal. Occluded RCA with left to right collaterals. 40% pLCx artery. . Denies chest pain. On BB, Pavix, ARB, continue. Not on statin d/t allergy. ASA recently stopped per Dr. Oswald seen 04/11/19 outpatient for risk of bleeding triple therapy. Qualifiers: Coronary Disease-Associated Artery/Lesion type: [place] artery [place] vs. transplanted heart: [place]am heart Associated angina: without angina Qualified Code(s): I25.10 - Atherosclerotic heart disease of [place] coronary artery without angina pectoris (3) Elevated troponin Current Visit: No Status: Resolved Elevated troponins of 0.06, 0.05, 0.04, 0.03 possible multifactoral demand ischemia related to recent admission this week for fluid overlaod, and treated with hemodialysis for ESRD. Deneis chest pain, palpitations, increased dyspnea. Likely not related to ACS. No cardiac rehab consult warranted. Discussion w patient/family: The assessment and plan as outlined above was discussed with the patient and/or family members who expressed understanding and agreement. All questions were answered. Thank you for involving us in the care of your patient. Please call with any questions. Subjective Principal diagnosis: atrial fibrillation with RVR Interval history: Ms. Weeks c/o fatigue. No palpitations or tachycardia Objective Vital Signs, Last 4 Hours Temp Pulse Resp BP Pulse Ox 04/26/19 07:00 98.0 F 61 15 120/68 99 General: Conversant, No Apparent Distress HEENT: Atraumatic, Normocephaly, Mucus Membranes Moist Neck: No JVD, Normal carotid pulses Cardiac: Reg Rate and Rhythm, Normal S1 and S2, No Murmur Lungs: Normal Breath Sounds, No Wheeze, Rales, Rhonchi Neuro: Alert and responsive, No focal deficits noted Abdomen: Soft, Non-Tender Skin: No rashes noted on visualized skin Musculoskeletal: No Chest Wall Tenderness Extremities: No Clubbing, No Cyanosis, No Edema, Normal Pulses Results 04/26/19 06:42 04/26/19 06:42 Lab Results 04/26/19 04/26/19 04/26/19 06:42 06:42 06:42 WBC 9.7 Hgb 8.8 L Hct 28.2 L Plt Count 240 Sodium 126 L Potassium 4.1 Chloride 95 L Carbon Dioxide 24 BUN 26 H Creatinine 4.39 H Glucose 97 Calcium 8.0 L Magnesium 1.6 - Imaging and Cardiology Echo: report reviewed - EKG Interpretation EKG results cardiology: personally reviewed Consult Discharge Plan - Plan Referrals: Patricia Topete CNP [Primary Care Provider] - Cardiac Rehab - Cardiac Rehab Cardiac Rehab: Phase I consult completed. Patient was educated on why Cardiac Rehabilitation is beneficial to his/her health. Participating in a cardiac rehabilitation can improve the following: strengthen your heart, improve ejection fraction, weight reduction, decrease cholesterol levels, lower blood pressure, lower blood sugar, improve stamina, and enhance self-image. If he/she has any questions, they were instructed to call [facility] at [phone].
[2019-04-26] MEDS: Budesonide/Formoterol 160/4.5 1 PUFF INH IH SCH (10:19)
--- NOTE | 2019-04-26 10:27 | Nephrology Progress Note ---
Date of Encounter: 04/26/19 Time of Encounter: 09:50 - Assessment and Plan (1) ESRD (end stage renal disease) Status: Chronic End-stage renal disease on thrice weekly hemodialysis: I reviewed the patient's labs, vital signs, progress notes, imaging and medication lists, which required complex evaluation and management and medical decision making to compose the patient's dialysis orders. For patients with end-stage renal disease, as always, I recommend following strict I's and O's, daily weights, renal diet, avoidance of nephrotoxic agents, renal dosing. (2) Failure to thrive Status: Acute Acute on chronic with hypoalbuminemia and cachexia in the setting of ESRD, which carries a higher risk for mortality. I answered all of her 's questions, and I spent approximately 55 minutes with the patient and spouse in [facility] greater than 50% was involved in counseling. He asked about her prognosis, he asked about her goal dry weight, he asked about potential symptoms of when to bring her back to the ER and went to monitor at home. I also contacted the dialysis unit and updated the [facility] dialysis unit in [place], [place], with a new dry weight goal of 50 kg to help minimize the risk of a tachyarhythmia, which is what lead to this readmission. Qualifiers: Failure to thrive age range: in adult Qualified Code(s): R62.7 - Adult failure to thrive (3) Hypoalbuminemia Status: Acute (4) Anemia Status: Chronic Goal Hgb is 10-11 Qualifiers: Anemia type: due to chronic kidney disease Chronic kidney disease stage: on chronic dialysis Qualified Code(s): N18.6 - End stage renal disease; D63.1 - Anemia in chronic kidney disease; Z99.2 - Dependence on renal dialysis Subjective Principal diagnosis: atrial fibrillation with RVR Interval history: The patient was seen and examined well on dialysis earlier in the day. She did not affirm having nausea, vomiting, or diarrhea. She did not affirm having fatigue. I also spoke with her at length, and I answered all of his questions. He had many questions regarding her prognosis and dry weight goals. Objective - Vital Signs Vital signs: Vital Signs Temp Pulse Resp BP Pulse Ox 04/26/19 07:00 98.0 F 61 15 120/68 99 04/26/19 03:59 98.6 F 58 12 116/62 100 04/26/19 03:39 16 99 04/26/19 00:26 99.7 F H 73 14 128/66 99 04/25/19 22:34 16 116/53 99 04/25/19 19:14 99.5 F 68 12 116/53 99 04/25/19 15:57 98.6 F 70 19 126/71 99 04/25/19 15:32 18 100 04/25/19 11:13 98.5 F 73 20 126/64 100 04/25/19 10:36 17 97 Intake and Output 04/25/19 04/26/19 04/26/19 23:59 07:59 15:59 Intake Total 290 / 350 120 / 120 Balance 290 / 350 120 / 120 Intake: IV Fluids 50 / 50 Magnesium Sulfate Premix 2gm/ 50 / 50 50mL 2 gm In 50 ml @ 50 mls/hr IVPB ONCE ONE Rx#:[id number] Oral 240 / 300 120 / 120 Other: Meal Dinner Breakfast Percent of Meal Consumed 60% 50% Weight 50.3 kg Patient Weight 04/26/19 23:59 Weight 50.3 kg - General Appearance General appearance: Present: cachectic, chronically ill, fatigue, frail EENT: Present: ATNC, PERRL, mucous membranes moist Neck: Present: no JVD, supple Respiratory: Present: no kyphosis, clear Cardiology: Present: no edema, regular rate, normal S1, normal S2 Dialysis Vascular Access: Venous Catheter (Permacath on the right side with a clean Tegaderm and no exitsite erythema) Gastrointestinal: Present: normoactive bowel sounds, no tenderness, no guarding Integumentary: Present: no rash, warm and dry Neurologic: Present: no focal deficit, no asterixis, alert and oriented x3 Musculoskeletal: Present: no erythema, no cyanosis Psychiatric: Present: mood/affect appropriate, cooperative - Lab 04/26/19 06:42 04/26/19 06:42 Most recent lab results 04/26/19 04/26/19 06:42 06:42 Calcium 8.0 L Magnesium 1.6 Consult Discharge Plan - Plan Instructions: Amiodarone (By mouth) Referrals: Patricia Topete CNP [Primary Care Provider] - Prescriptions: Amiodarone [Cordarone] 200 mg PO DAILY #30 tablet Transmission Status: Received by [facility] Carvedilol [Coreg] 25 mg PO BIDWM #60 tablet Transmission [facility]: [facility]
[2019-04-26] MEDS ORDERED: NON-FORMULARY MEDICATION 1 EACH EACH (Fluticasone/Umeclidin/Vilanter [Trelegy Ellipta 100- IH SCH (12:00)
[2019-04-26] MEDS: amLODIPine 5 MG TABLET PO SCH (13:01)
[2019-04-26] MEDS: Isosorbide MONOnitrate (24 HR) 30 MG TAB.ER.24H PO SCH (13:01)
[2019-04-26] MEDS: Apixaban 2.5 MG TABLET PO SCH (13:01)
[2019-04-26] MEDS: *HR* Amiodarone 200 MG TABLET PO SCH (13:01)
[2019-04-26] MEDS: Furosemide 40 MG TABLET PO SCH (13:02)
--- NOTE | 2019-04-26 15:17 | Discharge Summary ---
- NOTES TO OUTPATIENT PROVIDER Notes to Outpatient Provider: Pt presented to ED from dialysis due to rapid heartrate and concern for a fib. No episodes during admission. Seen by cardiology and meds adjusted. Completed dialysis today. Date of Encounter: 04/26/19 Time of Encounter: 08:30 - Discharge Diagnosis (1) Demand ischemia Priority: Primary Status: Suspected (2) Congestive heart failure Priority: Secondary Status: Chronic Qualifiers: Heart failure type: systolic Heart failure chronicity: chronic Qualified Code(s): I50.22 - Chronic systolic (congestive) heart failure (3) Chronic respiratory failure with hypoxia Priority: Secondary Status: Chronic (4) ESRD (end stage renal disease) on dialysis Priority: Secondary Status: Chronic (5) Afib Priority: Secondary Status: Chronic Qualifiers: Atrial fibrillation type: paroxysmal Qualified Code(s): I48.0 - Paroxysmal atrial fibrillation (6) Anemia Priority: Secondary Status: Chronic Qualifiers: Anemia type: due to chronic kidney disease Chronic kidney disease stage: on chronic dialysis Qualified Code(s): N18.6 - End stage renal disease; D63.1 - Anemia in chronic kidney disease; Z99.2 - Dependence on renal dialysis (7) CAD (coronary artery disease) Priority: Secondary Status: Chronic Qualifiers: Coronary Disease-Associated Artery/Lesion type: [place] artery [place] vs. transplanted heart: [place] heart Associated angina: without angina Qualified Code(s): I25.10 - Atherosclerotic heart disease of [place] coronary artery without angina pectoris (8) HTN (hypertension) Priority: Secondary Status: Chronic Qualifiers: Hypertension type: essential hypertension Qualified Code(s): I10 - Essential (primary) hypertension (9) Hypothyroidism Priority: Secondary Status: Chronic Qualifiers: Hypothyroidism type: acquired Qualified Code(s): E03.9 - Hypothyroidism, unspecified (10) Tobacco abuse Priority: Secondary Status: Chronic (11) Severe protein-calorie malnutrition Priority: Secondary Status: Chronic Hospital course: Ms. Weeks is a 68 year old female with hx of Parox a fib and ESRD presented to ED with tachycardia at dialysis and concern for a fib. She was placed in observation Ms Weeks was placed in observation on 2A. Pt was noted to have episodes of tachycardia at dialysis the day of admission and she was placed on tele here. No episodes noted. She had no chest pain or worsening dyspnea. Troponin mildly elevated but static. She was evaluated by cardiology and medications were adjusted. She underwent dialysis today without issue. Today she is afebrile. She feels at baseline and is ready for discharge home. She remains high risk for readmission as she is brought to ED when anything changes and is then admitted. Discharge discussed with: patient, family Time spent discussing smoking cessation with patient: 3 to 10 minutes - Time Spent with Patient Total time spent providing and/or coordinating discharge services: - Discharge Medications Prescriptions: New Amiodarone [Cordarone] 200 mg PO DAILY #30 tablet Carvedilol [Coreg] 25 mg PO BIDWM #60 tablet Omeprazole [PriLOSEC] 20 mg PO BIDAC capsule. Bisacodyl [Dulcolax] 5 mg PO DAILY tablet Continued amLODIPine [Norvasc] 5 mg PO DAILY Clopidogrel [Plavix] 75 mg PO DAILY Ipratropium/Albuterol Sulfate [Iprat-Albut 0.5-3(2.5) mg/3 ml] 3 ml IH 2-4XD Isosorbide MONOnitrate (24 HR) [Imdur] 30 mg PO DAILY OLANZapine [Zyprexa] 2.5 mg PO HS Apixaban [Eliquis] 2.5 mg PO BID #60 tablet Furosemide [Lasix] 40 mg PO SUMO@0900 #30 tablet Losartan Potassium [Cozaar] 25 mg PO BID Epoetin Matthew [Procrit] 4,000 unit IJ AD LORazepam [Ativan] 0.5 mg PO TID PRN PRN Reason: Anxiety Midodrine [ProAmatine] 5 mg PO TUTHSA Ondansetron HCl [Zofran] 4 mg PO Q6HR PRN PRN Reason: Nausea Ferrous Sulfate [Iron] 325 mg PO TU Albuterol Sulfate [Ventolin Hfa] 2 puff IH Q4H PRN PRN Reason: Shortness Of Breath Levothyroxine [Synthroid] 75 mcg PO 0630 Fluticasone/Umeclidin/Vilanter [Trelegy Ellipta 100-62.5-25] 1 puff IH 1200 Discontinued Atenolol [Tenormin] 50 mg PO BID Diltiazem CD (24hr) [Cardizem CD] 120 mg PO DAILY #30 cap.er.24h Home Medications: Clopidogrel [Plavix] 75 mg PO DAILY 10/21/18 [History] amLODIPine [Norvasc] 5 mg PO DAILY 10/21/18 [History] Ipratropium/Albuterol Sulfate [Iprat-Albut 0.5-3(2.5) mg/3 ml] 3 ml IH 2-4XD 11/14/18 [History] Isosorbide MONOnitrate (24 HR) [Imdur] 30 mg PO DAILY 01/17/19 [History] OLANZapine [Zyprexa] 2.5 mg PO HS 02/04/19 [History] Apixaban [Eliquis] 2.5 mg PO BID #60 tablet 03/23/19 [Rx] Furosemide [Lasix] 40 mg PO SUMO@0900 #30 tablet 03/25/19 [Rx] Epoetin Matthew [Procrit] 4,000 unit IJ AD 04/24/19 [History] Losartan Potassium [Cozaar] 25 mg PO BID 04/24/19 [History] Albuterol Sulfate [Ventolin Hfa] 2 puff IH Q4H PRN 04/25/19 [History] Ferrous Sulfate [Iron] 325 mg PO TU 04/25/19 [History] Fluticasone/Umeclidin/Vilanter [Trelegy Ellipta 100-62.5-25] 1 puff IH 1200 04/25/19 [History] LORazepam [Ativan] 0.5 mg PO TID PRN 04/25/19 [History] Levothyroxine [Synthroid] 75 mcg PO 0630 04/25/19 [History] Midodrine [ProAmatine] 5 mg PO TUTHSA 04/25/19 [History] Ondansetron HCl [Zofran] 4 mg PO Q6HR PRN 04/25/19 [History] Amiodarone [Cordarone] 200 mg PO DAILY #30 tablet 04/26/19 [Rx] Bisacodyl [Dulcolax] 5 mg PO DAILY tablet 04/26/19 [Rx] Carvedilol [Coreg] 25 mg PO BIDWM #60 tablet 04/26/19 [Rx] Omeprazole [PriLOSEC] 20 mg PO BIDAC capsule. 04/26/19 [Rx] Allergies/Adverse Reactions: Allergy/AdvReac Type Severity Reaction Status Date / Time atorvastatin Allergy See Verified 04/21/19 04:05 Comments doxycycline Allergy Rash Verified 04/21/19 04:05 Sulfa (Sulfonamide Allergy Rash Verified 04/21/19 04:05 Antibiotics) codeine AdvReac Nausea Verified 04/21/19 04:05 hydrocodone [From Vicodin] AdvReac Irritable Verified 04/21/19 04:05 Date of admission: 04/24/19 13:43 Primary care physician: Patricia Topete CNP Consults: 04/24/19 15:28 Consult to Cardiology [CONS] Routine Comment: Consulting Provider: [facility] [place] Reason for Consult: Pt of Dr. Oswald. Prior stent. Irregular heart rate with tachycardia. Slight troponin elevation Call Completed: No Consult to Nephrology [CONS] Routine Consulting Provider: [facility]/GUNJAN/MELISSA/LUISA Reason for Consult: Known dialysis patient. Call Completed: Yes 04/26/19 07:00 Consult to Dialysis [CONS] QTUTHSA 04/26/19 12:18 Consult to Social Service(Oncology) [CONS] Routine Comment: Advanced directives Consulting Provider: Albert Abdullahi Reason for Consult: Advanced directives. Call Completed: No 04/29/19 07:00 Consult to Dialysis [CONS] QTUTHSA 05/01/19 07:00 Consult to Dialysis [CONS] QTUTHSA Discharging clinician: Brien Jules Anticipated date of discharge: 04/26/19 - Constitutional Vitals: Temp Pulse Resp BP Pulse Ox 97.8 F 61 18 160/76 99 04/26/19 13:00 04/26/19 07:00 04/26/19 13:00 04/26/19 13:00 04/26/19 07:00 General appearance: Present: A&O X 3, answers questions appropriately Exam: see below - Head Head exam: Present: atraumatic, normocephalic - Eye Eye exam: Present: EOMI, conjuntiva pink - ENT ENT exam: Present: mucous membranes moist - Neck Neck exam general surgery: Present: normal inspection, supple - Respiratory Respiratory exam: Present: CTAB. Absent: rhonchi, wheezes - Cardiovascular Cardiovascular exam: Present: RRR. Absent: tachycardia - GI/Abdominal GI/Abdominal exam: Present: soft. Absent: tenderness - Extremities Exam Extremities exam: Present: warm. Absent: tenderness - Neurological Exam Neurological exam: Present: alert, oriented X3 - Skin Skin exam: Present: dry, warm - Patient Status Disposition: Home Health Service Condition: Fair Functional capacity at discharge: uses cane/walker Overall status at discharge: patient is progressing back to baseline - Discharge Instructions Follow Up With: Patricia Topete CNP [Primary Care Provider] - Forms: ED Satisfaction Letter - Diet and Activity Activity: resume usual activities as tolerated Diet: advance to your usual diet
--- NOTE | 2019-04-26 15:21 | Physician Discharge Referral ---
Home Health/Hosp Referral Info Transfer to: Home Health Provider in Charge Post Discharge: PCP - Diagnosis (1) Demand ischemia Priority: Primary Status: Suspected (2) Congestive heart failure Priority: Secondary Status: Chronic (3) Chronic respiratory failure with hypoxia Priority: Secondary Status: Chronic (4) ESRD (end stage renal disease) on dialysis Priority: Secondary Status: Chronic (5) Afib Priority: Primary Status: Chronic (6) Anemia Priority: Secondary Status: Chronic (7) CAD (coronary artery disease) Priority: Secondary Status: Chronic (8) HTN (hypertension) Priority: Secondary Status: Chronic (9) Hypothyroidism Priority: Secondary Status: Chronic (10) Tobacco abuse Priority: Secondary Status: Chronic (11) Severe protein-calorie malnutrition Priority: Secondary Status: Chronic - Respiratory Orders Oxygen / L per min (2L) Smoking Cessation: Smoking cessation has been advised. For more information, call the [employer] Quit Line at 8-855-CLZY-NOW. - Diet/Nutrition Diet/Nutrition Orders: Renal - Activity Activity Orders: Up ad maria esther - Services Needed Following services are medically necessary services: Nursing, Home Health Aide, Physical Therapy, Occupational Therapy - Transfer Medications Prescriptions: Amiodarone [Cordarone] 200 mg PO DAILY #30 tablet Transmission Status: Pending to [facility] [place] [id number] Carvedilol [Coreg] 25 mg PO BIDWM #60 tablet Transmission Status: Pending to [facility] [id number] Home Medications: Clopidogrel [Plavix] 75 mg PO DAILY 10/21/18 [History] amLODIPine [Norvasc] 5 mg PO DAILY 10/21/18 [History] Ipratropium/Albuterol Sulfate [Iprat-Albut 0.5-3(2.5) mg/3 ml] 3 ml IH 2-4XD 11/14/18 [History] Isosorbide MONOnitrate (24 HR) [Imdur] 30 mg PO DAILY 01/17/19 [History] OLANZapine [Zyprexa] 2.5 mg PO HS 02/04/19 [History] Apixaban [Eliquis] 2.5 mg PO BID #60 tablet 03/23/19 [Rx] Furosemide [Lasix] 40 mg PO SUMO@0900 #30 tablet 03/25/19 [Rx] Epoetin Matthew [Procrit] 4,000 unit IJ AD 04/24/19 [History] Losartan Potassium [Cozaar] 25 mg PO BID 04/24/19 [History] Albuterol Sulfate [Ventolin Hfa] 2 puff IH Q4H PRN 04/25/19 [History] Ferrous Sulfate [Iron] 325 mg PO TU 04/25/19 [History] Fluticasone/Umeclidin/Vilanter [Trelegy Ellipta 100-62.5-25] 1 puff IH 1200 04/25/19 [History] LORazepam [Ativan] 0.5 mg PO TID PRN 04/25/19 [History] Levothyroxine [Synthroid] 75 mcg PO 0630 04/25/19 [History] Midodrine [ProAmatine] 5 mg PO TUTHSA 04/25/19 [History] Ondansetron HCl [Zofran] 4 mg PO Q6HR PRN 04/25/19 [History] Amiodarone [Cordarone] 200 mg PO DAILY #30 tablet 04/26/19 [Rx] Bisacodyl [Dulcolax] 5 mg PO DAILY tablet 04/26/19 [Rx] Carvedilol [Coreg] 25 mg PO BIDWM #60 tablet 04/26/19 [Rx] Omeprazole [PriLOSEC] 20 mg PO BIDAC capsule. 04/26/19 [Rx] Allergies/Adverse Reactions: Allergy/AdvReac Type Severity Reaction Status Date / Time atorvastatin Allergy See Verified 04/21/19 04:05 Comments doxycycline Allergy Rash Verified 04/21/19 04:05 Sulfa (Sulfonamide Allergy Rash Verified 04/21/19 04:05 Antibiotics) codeine AdvReac Nausea Verified 04/21/19 04:05 hydrocodone [From Vicodin] AdvReac Irritable Verified 04/21/19 04:05 Certification: Further, I certify that my clinical findings support that this patient is homebound (i.e. absences from home require considerable and taxing effort and are for medical reasons or [employer]aker services or infrequently or short duration when for other reasons) because: Homebound Reason: Patient requires assistance of a person or device to safely leave home, Severity of cardiac or pulmonary status limits activity tolerance Attestation: My signature below is to certify that this patient is under my care and that I, or nurse practitioner, or a physician's medical assistant working with me, has a [id number] encounter with this patient.
[2019-04-26 15:27] VITALS: BP 119/67
[2019-04-27] MEDS ORDERED: Furosemide 40 MG TABLET PO SCH (09:00)
== END 2019-04-26 17:00 | disposition home health service (06) ==
LOC: EMEROOARM 10:06 → 2ANU 10:06 → SUATTDRO 13:43 → 2ANU 14:36
PROVIDERS: ADMIT Internal Medicine; ATTEND Internal Medicine

== ENCOUNTER 2019-05-03 06:01 | Observation (INO) ==
[2019-05-03] MEDS ORDERED: Ipratropium/Albuterol Neb 3 ML IH ONE ×2 (06:14→09:07)
[2019-05-03 08:00] LABS: Basophils # 0.1 K/mcL (0.0-0.2); Basophils % 0.8 %; Eosinophils # 0.3 K/mcL (0.0-0.6); Eosinophils % 2.1 %; Hematocrit 37.8 % (35.3-44.9); Hemoglobin 11.3 g/dL (11.5-15.4); Immature Granulocytes % 1.7 % (0-4); Lymphocytes % 6.7 %; Mean Corpuscular HGB Conc 29.9 g/dL (31.6-35.5); Mean Corpuscular Hemoglobin 25.7 pg (28.0-33.3); Mean Corpuscular Volume 85.9 fL (83.0-100.0); Mean Platelet Volume 9.4 fL (9.4-12.4); Monocytes # 0.7 K/mcL (0.0-1.3); Monocytes % 4.3 %; Neutrophils # 12.7 K/mcL (1.6-8.9); Platelet Count 441 K/mcL (140-400); Red Cell Distribution Width 18.3 % (11.5-14.5); Segmented Neutrophils % 84.4 %
[2019-05-03 08:24] LABS: Alanine Aminotransferase 8 Units/L (7-52); Albumin 3.4 g/dL (3.5-5.7); Albumin/Globulin Ratio 1.1 (1.1-2.2); Alkaline Phosphatase 103 Units/L (34-104); Aspartate Amino Transferase 12 Units/L (13-39); BUN/Creatinine Ratio 6 (6-26); Bilirubin,Total 0.3 mg/dL (0.3-1.0); Blood Urea Nitrogen 22 mg/dL (8-23); Calcium 9.3 mg/dL (8.6-10.3); Carbon Dioxide 22 mEq/L (23-29); Chloride 99 mEq/L (98-107); Globulin 3.2 g/dL (2.4-3.5); Glucose 141 mg/dL (70-105); Osmolality,Calculated 272 (280-300); Potassium 5.6 mEq/L (3.5-5.1); Sodium 128 mEq/L (136-145); Total Protein 6.6 g/dL (6.4-8.9); Troponin I < 0.03 ng/mL (< 0.04); eGFR For African Americans 15 (> 60); eGFR For Non-African Americans 12 (> 60)
[2019-05-03] MEDS ORDERED: methylPREDNISolone 125 MG/2 ML VIAL IM ONE (09:08)
[2019-05-03] MEDS ORDERED: Furosemide 40 MG/4 ML VIAL IVP ONE (09:12)
[2019-05-03] MEDS ORDERED: *HR* LORazepam 1 MG TABLET PO ONE (09:21)
[2019-05-03] MEDS ORDERED: *HR* LORazepam 0.5 MG TABLET PO PRN (10:57)
[2019-05-03] MEDS ORDERED: Ipratropium/Albuterol Neb 3 ML IH PRN (10:59)
[2019-05-03] MEDS ORDERED: Naloxone 0.4 MG/ML INJ IVP PRN (11:02)
[2019-05-03] MEDS ORDERED: 0.9 % Sodium Chloride 250 ML IVC PRN (12:30)
[2019-05-03] MEDS ORDERED: *HR* Heparin 10,000 UNIT/10 ML VIAL IV PRN ×2 (12:30)
[2019-05-03] MEDS ORDERED: 0.9 % Sodium Chloride 1,000 ML PRIME SCH (12:30)
[2019-05-03] MEDS: OLANZapine 5 MG TAB.RAPDIS PO SCH (20:40)
[2019-05-03] MEDS: Apixaban 2.5 MG TABLET PO SCH (20:40)
[2019-05-03] MEDS: Ondansetron ODT 4 MG TAB.RAPDIS PO PRN (20:47)
[2019-05-04] MEDS: Ondansetron ODT 4 MG TAB.RAPDIS PO PRN ×2 (03:20→12:28)
[2019-05-04 07:10] LABS: Basophils % 0.2 %; Hematocrit 34.1 % (35.3-44.9); Hemoglobin 10.3 g/dL (11.5-15.4); Immature Granulocytes % 1.5 % (0-4); Lymphocytes # 1.2 K/mcL (0.6-4.6); Lymphocytes % 7.7 %; Mean Corpuscular HGB Conc 30.2 g/dL (31.6-35.5); Mean Corpuscular Hemoglobin 25.1 pg (28.0-33.3); Mean Corpuscular Volume 83.2 fL (83.0-100.0); Mean Platelet Volume 9.4 fL (9.4-12.4); Monocytes # 0.9 K/mcL (0.0-1.3); Neutrophils # 12.6 K/mcL (1.6-8.9); Platelet Count 436 K/mcL (140-400); Red Cell Distribution Width 18.3 % (11.5-14.5); Segmented Neutrophils % 84.6 %; White Blood Count 14.9 K/mcL (4.3-11.1)
[2019-05-04 07:29] LABS: Calcium 8.8 mg/dL (8.6-10.3); Potassium 4.7 mEq/L (3.5-5.1)
[2019-05-04] MEDS: Isosorbide MONOnitrate (24 HR) 30 MG TAB.ER.24H PO SCH (07:29)
[2019-05-04] MEDS: Apixaban 2.5 MG TABLET PO SCH ×2 (07:29→20:03)
[2019-05-04] MEDS: amLODIPine 5 MG TABLET PO SCH (07:29)
[2019-05-04] MEDS: Furosemide 40 MG TABLET PO SCH (07:35)
[2019-05-04] MEDS: OLANZapine 5 MG TAB.RAPDIS PO SCH (20:03)
[2019-05-05 08:14] VITALS: BP 163/87
[2019-05-05 08:19] LABS: Basophils # 0.1 K/mcL (0.0-0.2); Basophils % 0.3 %; Eosinophils # 0.3 K/mcL (0.0-0.6); Eosinophils % 1.4 %; Hematocrit 32.4 % (35.3-44.9); Immature Granulocytes % 0.6 % (0-4); Lymphocytes # 1.8 K/mcL (0.6-4.6); Lymphocytes % 9.7 %; Mean Corpuscular HGB Conc 30.9 g/dL (31.6-35.5); Mean Corpuscular Hemoglobin 25.8 pg (28.0-33.3); Mean Corpuscular Volume 83.5 fL (83.0-100.0); Mean Platelet Volume 9.4 fL (9.4-12.4); Monocytes % 5.3 %; Neutrophils # 15.6 K/mcL (1.6-8.9); Platelet Count 425 K/mcL (140-400); Red Blood Count 3.88 M/mcL (3.82-4.97); Red Cell Distribution Width 18.2 % (11.5-14.5); Segmented Neutrophils % 82.7 %; White Blood Count 18.9 K/mcL (4.3-11.1)
[2019-05-05] MEDS: amLODIPine 5 MG TABLET PO SCH (08:32)
[2019-05-05] MEDS: Isosorbide MONOnitrate (24 HR) 30 MG TAB.ER.24H PO SCH (08:32)
[2019-05-05] MEDS: Apixaban 2.5 MG TABLET PO SCH (08:33)
[2019-05-05] MEDS: Furosemide 40 MG TABLET PO SCH (08:38)
[2019-05-05 08:40] LABS: Calcium 8.7 mg/dL (8.6-10.3); Potassium 4.4 mEq/L (3.5-5.1)
[2019-05-05] MEDS ORDERED: Diltiazem CD (24hr) 120 MG CAPSULE PO SCH (09:00)
[2019-05-05] MEDS ORDERED: levoFLOXacin 750 MG TABLET PO ONE (10:04)
== END 2019-05-05 11:40 | disposition home health service (06) ==
LOC: 2ANU 06:01 → EMEROOARM 06:01 → SUATTDRO 10:02 → 2ANU 10:39
PROVIDERS: ADMIT Internal Medicine; ATTEND Internal Medicine

== ENCOUNTER 2019-05-20 02:38 | Inpatient (IN) ==
[2019-05-20] MEDS ORDERED: Ipratropium/Albuterol Neb 3 ML IH ONE (02:56)
[2019-05-20] MEDS ORDERED: methylPREDNISolone 125 MG/2 ML VIAL IVP ONE (02:57)
[2019-05-20] MEDS ORDERED: *HR* LORazepam 2 MG/ML VIAL IVP ONE (03:03)
[2019-05-20 03:22] LABS: Basophils # 0.1 K/mcL (0.0-0.2); Basophils % 0.9 %; Eosinophils # 0.9 K/mcL (0.0-0.6); Eosinophils % 6.5 %; Hematocrit 36.2 % (35.3-44.9); Hemoglobin 11.6 g/dL (11.5-15.4); Immature Granulocytes % 0.8 % (0-4); Lymphocytes # 3.8 K/mcL (0.6-4.6); Mean Corpuscular Volume 81.2 fL (83.0-100.0); Mean Platelet Volume 9.2 fL (9.4-12.4); Monocytes # 0.9 K/mcL (0.0-1.3); Monocytes % 6.3 %; Platelet Count 344 K/mcL (140-400); Red Blood Count 4.46 M/mcL (3.82-4.97); Red Cell Distribution Width 18.6 % (11.5-14.5); Segmented Neutrophils % 57.5 %
[2019-05-20 03:27] LABS: Neutrophils # 7.8 K/mcL (1.6-8.9); White Blood Count 13.6 K/mcL (4.3-11.1)
[2019-05-20 04:48] LABS: Troponin I 0.03 ng/mL (< 0.04)
[2019-05-20] MEDS ORDERED: Cefepime HCl 2,000 MG in Water for inj. (sterile) 20 ML IVP STA (04:59)
[2019-05-20] MEDS ORDERED: Calcium Gluconate 1,000 MG/10 ML VIAL IVPB ONE (05:00)
[2019-05-20] MEDS ORDERED: Insulin Human Regular 10 UNIT in 0.9 % Sodium Chloride 10 ML IV ONE (05:01)
[2019-05-20] MEDS ORDERED: *HR* Dextrose 50 % in Water (Syg) 50 ML SYRINGE IVP ONE (05:01)
[2019-05-20] MEDS ORDERED: Calcium Gluconate 1gm/50mL 1 GM/50 ML BAG IVPB SCH (05:30)
[2019-05-20] MEDS ORDERED: Albuterol 2.5 MG/3 ML NEBULIZER IH ONE (06:18)
[2019-05-20] MEDS ORDERED: 0.9 % Sodium Chloride 250 ML IVC PRN (07:47)
[2019-05-20] MEDS ORDERED: 0.9 % Sodium Chloride 1,000 ML PRIME SCH (08:00)
[2019-05-20] MEDS ORDERED: 0.9 % Sodium Chloride 2,000 ML ONE (08:01)
[2019-05-20] MEDS ORDERED: Acetaminophen 325 MG TABLET PO PRN (08:02)
[2019-05-20] MEDS ORDERED: Ondansetron 4 MG/2 ML VIAL IVP PRN (08:02)
[2019-05-20] MEDS ORDERED: *HR* Heparin 10,000 UNIT/10 ML VIAL IV PRN (08:12)
[2019-05-20] MEDS: Apixaban 2.5 MG TABLET PO SCH ×2 (09:26→22:12)
[2019-05-20] MEDS: Isosorbide MONOnitrate (24 HR) 30 MG TAB.ER.24H PO SCH ×2 (09:26→13:03)
[2019-05-20] MEDS: Budesonide/Formoterol 160/4.5 1 PUFF INH IH SCH ×2 (11:15→19:26)
[2019-05-20] MEDS: Ipratropium/Albuterol Neb 3 ML IH SCH ×4 (11:16→23:29)
[2019-05-20 11:54] LABS: Hepatitis B Surface Antibody < 3.10 mIU/mL
[2019-05-20] MEDS ORDERED: NON-FORMULARY MEDICATION 1 EACH EACH (Fluticasone/Umeclidin/Vilanter [Trelegy Ellipta 100- IH SCH (12:00)
[2019-05-20 12:05] LABS: Hepatitis B Surface Antigen Nonreactive (Nonreactive)
[2019-05-20] MEDS: Diltiazem CD (24hr) 120 MG CAPSULE PO SCH (13:02)
[2019-05-20] MEDS: Azithromycin 250 MG TABLET PO SCH (13:03)
[2019-05-20] MEDS: predniSONE 20 MG TABLET PO SCH (13:03)
[2019-05-20] MEDS: *HR* LORazepam 0.5 MG TABLET PO PRN (22:12)
[2019-05-20] MEDS: OLANZapine 5 MG TAB.RAPDIS PO SCH (22:12)
[2019-05-21] MEDS: Ipratropium/Albuterol Neb 3 ML IH SCH ×5 (03:05→19:52)
[2019-05-21 04:48] LABS: Hematocrit 31.2 % (35.3-44.9); Mean Corpuscular HGB Conc 31.4 g/dL (31.6-35.5); Mean Corpuscular Hemoglobin 25.9 pg (28.0-33.3); Mean Corpuscular Volume 82.5 fL (83.0-100.0); Mean Platelet Volume 9.8 fL (9.4-12.4); Platelet Count 252 K/mcL (140-400); Red Blood Count 3.78 M/mcL (3.82-4.97); Red Cell Distribution Width 18.8 % (11.5-14.5); White Blood Count 9.9 K/mcL (4.3-11.1)
[2019-05-21 04:53] LABS: Hemoglobin 9.8 g/dL (11.5-15.4)
[2019-05-21 05:10] LABS: Calcium 8.7 mg/dL (8.6-10.3); Magnesium 1.5 mg/dL (1.6-2.6); Potassium 5.2 mEq/L (3.5-5.1)
[2019-05-21] MEDS: Budesonide/Formoterol 160/4.5 1 PUFF INH IH SCH ×2 (07:38→19:52)
[2019-05-21] MEDS ORDERED: 0.9 % Sodium Chloride 250 ML IVC PRN (08:01)
[2019-05-21] MEDS: Azithromycin 250 MG TABLET PO SCH (08:43)
[2019-05-21] MEDS: predniSONE 20 MG TABLET PO SCH (08:43)
[2019-05-21] MEDS: Furosemide 40 MG TABLET PO SCH (08:44)
[2019-05-21] MEDS: Diltiazem CD (24hr) 120 MG CAPSULE PO SCH (08:44)
[2019-05-21] MEDS: Apixaban 2.5 MG TABLET PO SCH ×2 (08:56→20:57)
[2019-05-21] MEDS: *HR* LORazepam 0.5 MG TABLET PO PRN (10:37)
[2019-05-21] MEDS ORDERED: *HR* Heparin 10,000 UNIT/10 ML VIAL IV PRN (12:02)
[2019-05-21] MEDS: Isosorbide MONOnitrate (24 HR) 30 MG TAB.ER.24H PO SCH (12:42)
[2019-05-21] MEDS: OLANZapine 5 MG TAB.RAPDIS PO SCH (20:56)
[2019-05-22] MEDS: Ipratropium/Albuterol Neb 3 ML IH SCH ×5 (00:09→16:25)
[2019-05-22 06:08] LABS: Hematocrit 29.5 % (35.3-44.9); Hemoglobin 9.2 g/dL (11.5-15.4); Mean Corpuscular HGB Conc 31.2 g/dL (31.6-35.5); Mean Corpuscular Hemoglobin 25.6 pg (28.0-33.3); Mean Corpuscular Volume 82.2 fL (83.0-100.0); Mean Platelet Volume 9.5 fL (9.4-12.4); Platelet Count 266 K/mcL (140-400); Red Blood Count 3.59 M/mcL (3.82-4.97); Red Cell Distribution Width 18.4 % (11.5-14.5); White Blood Count 13.9 K/mcL (4.3-11.1)
[2019-05-22 06:31] LABS: Calcium 8.5 mg/dL (8.6-10.3); Magnesium 1.9 mg/dL (1.6-2.6)
[2019-05-22 06:43] LABS: Thyroid Stimulating Hormone 1.204 mcIU/mL (0.340-5.600)
[2019-05-22] MEDS ORDERED: 0.9 % Sodium Chloride 250 ML IVC PRN (07:09)
[2019-05-22 07:46] LABS: VBG HCO3 23 mEq/L (21-27); VBG PCO2 34 mmHg (41-51); VBG PH 7.44 pH Units (7.32-7.42); VBG PO2 174 mmHg (25-50)
[2019-05-22] MEDS: Budesonide/Formoterol 160/4.5 1 PUFF INH IH SCH (08:04)
[2019-05-22] MEDS ORDERED: cefTRIAXone 1,000 MG in 0.9 % Sodium Chloride Mini Bag 100 ML IVPB SCH ×2 (09:00→09:06)
[2019-05-22] MEDS ORDERED: cefTRIAXone 1,000 MG in Water for inj. (sterile) 10 ML IVP SCH (09:00)
[2019-05-22] MEDS ORDERED: Lactobacillus 1 EACH CAP.SPRINK PO SCH (09:00)
[2019-05-22] MEDS: Azithromycin 250 MG TABLET PO SCH (12:50)
[2019-05-22] MEDS: predniSONE 20 MG TABLET PO SCH (12:50)
[2019-05-22] MEDS: Apixaban 2.5 MG TABLET PO SCH (12:50)
[2019-05-22] MEDS: Isosorbide MONOnitrate (24 HR) 30 MG TAB.ER.24H PO SCH (12:50)
[2019-05-22] MEDS: Diltiazem CD (24hr) 120 MG CAPSULE PO SCH (12:50)
[2019-05-22] MEDS: Furosemide 40 MG TABLET PO SCH (12:50)
[2019-05-22 16:13] VITALS: BP 148/89
== END 2019-05-22 17:30 | disposition home health service (06) | DRG 291 ==
LOC: EMEROOARM 02:38 → 2ANU 02:38 → SUATTDRO 06:18 → 2ANU 06:58 → SUATTDRO 05-21 15:31
PROVIDERS: ADMIT Internal Medicine; ATTEND Pharmacist

== ENCOUNTER 2019-05-25 08:06 | Observation (INO) ==
[2019-05-25] MEDS ORDERED: Ipratropium/Albuterol Neb 3 ML IH ONE (08:13)
[2019-05-25] MEDS ORDERED: methylPREDNISolone 125 MG/2 ML VIAL IVP ONE (08:13)
[2019-05-25 08:37] LABS: ABG Base Excess -2 mEq/L (-2 to 3); ABG HCO3 26 mEq/L (21-27); ABG Oxygen Saturation 99 % (95-98); ABG PCO2 60 mmHg (35-45); ABG PH 7.25 pH Units (7.32-7.45); ABG PO2 141 mmHg (85-104); ABG TCO2 28 mEq/L (20-26)
[2019-05-25 08:48] LABS: Basophils % 0.2 %; Eosinophils # 0.1 K/mcL (0.0-0.6); Eosinophils % 0.7 %; Immature Granulocytes % 0.8 % (0-4); Lymphocytes # 4.7 K/mcL (0.6-4.6); Lymphocytes % 34.3 %; Mean Corpuscular HGB Conc 30.3 g/dL (31.6-35.5); Mean Corpuscular Hemoglobin 25.3 pg (28.0-33.3); Mean Corpuscular Volume 83.7 fL (83.0-100.0); Monocytes # 0.9 K/mcL (0.0-1.3); Monocytes % 6.4 %; Neutrophils # 7.9 K/mcL (1.6-8.9); Platelet Count 317 K/mcL (140-400); Red Blood Count 4.42 M/mcL (3.82-4.97); Red Cell Distribution Width 18.2 % (11.5-14.5); Segmented Neutrophils % 57.6 %; White Blood Count 13.7 K/mcL (4.3-11.1)
[2019-05-25 08:49] LABS: Hemoglobin 11.2 g/dL (11.5-15.4)
[2019-05-25 09:02] LABS: Prothrombin Time 11.9 Seconds (9.4-12.1)
[2019-05-25 09:05] LABS: Activated Partial Thrombo Time 26.3 Seconds (26.0-36.0)
[2019-05-25 10:17] LABS: Alanine Aminotransferase 29 Units/L (7-52); Albumin 2.9 g/dL (3.5-5.7); Albumin/Globulin Ratio 1.3 (1.1-2.2); Alkaline Phosphatase 110 Units/L (34-104); Aspartate Amino Transferase 47 Units/L (13-39); BUN/Creatinine Ratio 9 (6-26); Bilirubin,Direct 0.1 mg/dL (0.0-0.2); Bilirubin,Indirect 0.2 mg/dL (0.0-1.0); Bilirubin,Total 0.3 mg/dL (0.3-1.0); Blood Urea Nitrogen 22 mg/dL (8-23); Calcium 7.3 mg/dL (8.6-10.3); Carbon Dioxide 25 mEq/L (23-29); Chloride 103 mEq/L (98-107); Globulin 2.3 g/dL (2.4-3.5); Glucose 142 mg/dL (70-105); Osmolality,Calculated 284 (280-300); Potassium 3.7 mEq/L (3.5-5.1); Sodium 134 mEq/L (136-145); Total Protein 5.2 g/dL (6.4-8.9); Troponin I < 0.03 ng/mL (< 0.04); eGFR For African Americans 23 (> 60); eGFR For Non-African Americans 19 (> 60)
[2019-05-25 11:34] LABS: Bilirubin,Urine Negative (Negative); Blood,Urine Negative (Negative); Clarity,Urine Clear (Clear); Color,Urine Yellow (Yellow); Glucose,Urine (UA) Normal (Normal); Ketones,Urine Negative (Negative); Leukocyte Esterase,Urine Negative (Negative); Nitrite,Urine Negative (Negative); Protein,Urine 100 mg/dL (Neg-Trace); Specific Gravity,Urine 1.008 (1.010-1.025); Urobilinogen,Urine Normal (Normal)
[2019-05-25 11:36] LABS: Bacteria,Urine None Seen per hpf (None-Few); Hyaline Casts,Urine None Seen per lpf (None-Few); Squamous Epithelial Cell,Urine Many per lpf (None-Few); WBC,Urine 0-3 per hpf (0-3)
[2019-05-25] MEDS ORDERED: Naloxone 0.4 MG/ML INJ IVP PRN (11:59)
[2019-05-25] MEDS: Furosemide 40 MG/4 ML VIAL IVP SCH (13:55)
[2019-05-25] MEDS: Ipratropium/Albuterol Neb 3 ML IH SCH ×4 (16:02→23:38)
[2019-05-25] MEDS: Budesonide/Formoterol 160/4.5 1 PUFF INH IH SCH (19:55)
[2019-05-25] MEDS: Apixaban 2.5 MG TABLET PO SCH (22:58)
[2019-05-25] MEDS: OLANZapine 5 MG TAB.RAPDIS PO SCH (22:59)
[2019-05-25] MEDS: *HR* LORazepam 0.5 MG TABLET PO PRN (22:59)
[2019-05-25] MEDS ORDERED: *HR* Promethazine 25 MG/ML VIAL IVP SCH (23:01)
[2019-05-26] MEDS ORDERED: predniSONE 10 MG TABLET PO ONE ×2 (04:45→23:47)
[2019-05-26] MEDS: Ipratropium/Albuterol Neb 3 ML IH SCH ×5 (04:53→20:18)
[2019-05-26 06:52] LABS: Basophils % 0.1 %; Hemoglobin 9.8 g/dL (11.5-15.4); Immature Granulocytes % 0.5 % (0-4); Lymphocytes # 1.7 K/mcL (0.6-4.6); Lymphocytes % 20.1 %; Mean Corpuscular HGB Conc 32.7 g/dL (31.6-35.5); Mean Corpuscular Hemoglobin 26.1 pg (28.0-33.3); Mean Platelet Volume 9.9 fL (9.4-12.4); Monocytes # 0.7 K/mcL (0.0-1.3); Monocytes % 7.9 %; Neutrophils # 6.1 K/mcL (1.6-8.9); Platelet Count 289 K/mcL (140-400); Red Blood Count 3.75 M/mcL (3.82-4.97); Red Cell Distribution Width 17.9 % (11.5-14.5); Segmented Neutrophils % 71.4 %; White Blood Count 8.6 K/mcL (4.3-11.1)
[2019-05-26] MEDS: Budesonide/Formoterol 160/4.5 1 PUFF INH IH SCH ×2 (07:12→20:19)
[2019-05-26 07:20] LABS: Potassium 4.4 mEq/L (3.5-5.1)
[2019-05-26] MEDS: Isosorbide MONOnitrate (24 HR) 30 MG TAB.ER.24H PO SCH (08:25)
[2019-05-26] MEDS: Apixaban 2.5 MG TABLET PO SCH ×2 (08:25→21:28)
[2019-05-26] MEDS: Metoprolol XL (24 HR) Succ 50 MG TAB.ER.24H PO SCH (08:26)
[2019-05-26] MEDS: *HR* LORazepam 0.5 MG TABLET PO PRN ×3 (08:26→21:28)
[2019-05-26] MEDS: Furosemide 40 MG/4 ML VIAL IVP SCH (08:26)
[2019-05-26] MEDS ORDERED: 0.9 % Sodium Chloride 250 ML IVC PRN (08:28)
[2019-05-26] MEDS ORDERED: *HR* Heparin 10,000 UNIT/10 ML VIAL IV PRN (08:28)
[2019-05-26] MEDS ORDERED: 0.9 % Sodium Chloride 1,000 ML PRIME SCH (08:30)
[2019-05-26] MEDS ORDERED: (Fluticasone/Umeclidin/Vilanter [Trelegy Ellipta 100-62.5-25) IH SCH (12:00)
[2019-05-26] MEDS ORDERED: *HR* Promethazine 25 MG/ML VIAL IVP ONE (20:42)
[2019-05-26] MEDS: OLANZapine 5 MG TAB.RAPDIS PO SCH (21:28)
[2019-05-27] MEDS: Ipratropium/Albuterol Neb 3 ML IH SCH ×4 (00:34→11:26)
[2019-05-27 05:32] LABS: Basophils % 0.1 %; Eosinophils # 0.1 K/mcL (0.0-0.6); Eosinophils % 1.1 %; Hematocrit 32.1 % (35.3-44.9); Hemoglobin 10.3 g/dL (11.5-15.4); Immature Granulocytes % 0.6 % (0-4); Lymphocytes # 2.7 K/mcL (0.6-4.6); Lymphocytes % 30.4 %; Mean Corpuscular HGB Conc 32.1 g/dL (31.6-35.5); Mean Corpuscular Hemoglobin 25.6 pg (28.0-33.3); Mean Corpuscular Volume 79.9 fL (83.0-100.0); Monocytes # 0.8 K/mcL (0.0-1.3); Monocytes % 9.4 %; Neutrophils # 5.2 K/mcL (1.6-8.9); Platelet Count 300 K/mcL (140-400); Red Blood Count 4.02 M/mcL (3.82-4.97); Segmented Neutrophils % 58.4 %; White Blood Count 8.8 K/mcL (4.3-11.1)
[2019-05-27 06:12] LABS: Calcium 8.2 mg/dL (8.6-10.3); Potassium 3.6 mEq/L (3.5-5.1)
[2019-05-27] MEDS: Budesonide/Formoterol 160/4.5 1 PUFF INH IH SCH (07:24)
[2019-05-27] MEDS: *HR* LORazepam 0.5 MG TABLET PO PRN (07:52)
[2019-05-27] MEDS: Metoprolol XL (24 HR) Succ 50 MG TAB.ER.24H PO SCH (07:53)
[2019-05-27] MEDS: Apixaban 2.5 MG TABLET PO SCH (07:53)
[2019-05-27] MEDS: Isosorbide MONOnitrate (24 HR) 30 MG TAB.ER.24H PO SCH (07:53)
[2019-05-27] MEDS: Furosemide 40 MG/4 ML VIAL IVP SCH (07:54)
[2019-05-27] MEDS ORDERED: 0.9 % Sodium Chloride 250 ML IVC PRN (08:04)
[2019-05-27] MEDS ORDERED: *HR* Heparin 10,000 UNIT/10 ML VIAL IV PRN (08:04)
[2019-05-27] MEDS ORDERED: predniSONE 10 MG TABLET PO SCH (09:00)
[2019-05-27 12:10] VITALS: BP 161/86
== END 2019-05-27 13:13 | disposition home or self-care (01) ==
LOC: EMEROOARM 08:06 → 2ANU 08:06 → SUATTDRO 11:10 → 2ANU 11:44
PROVIDERS: ADMIT Student in an Organized Health Care Education/Training Program; ATTEND Family Medicine

== ENCOUNTER 2019-06-06 04:21 | Inpatient (IN) ==
[2019-06-06] MEDS ORDERED: methylPREDNISolone 125 MG/2 ML VIAL IVP ONE (04:25)
[2019-06-06] MEDS ORDERED: Ipratropium/Albuterol Neb 3 ML IH ONE (04:25)
[2019-06-06] MEDS ORDERED: Isovue-370 500 ML BOTTLE IVP ONE (04:25)
[2019-06-06] MEDS ORDERED: Nitroglycerin 0.4 MG TAB.SUBL SL ONE (04:42)
[2019-06-06] MEDS ORDERED: Nitroglycerin 25 MG/250 ML INFUS..BTL IVC SCH (04:45)
[2019-06-06] MEDS ORDERED: *HR* LORazepam 2 MG/ML VIAL IVP ONE (04:50)
[2019-06-06 05:09] LABS: Basophils # 0.1 K/mcL (0.0-0.2); Basophils % 0.8 %; Eosinophils # 0.6 K/mcL (0.0-0.6); Eosinophils % 4.5 %; Hematocrit 38.7 % (35.3-44.9); Hemoglobin 11.5 g/dL (11.5-15.4); Immature Granulocytes % 1.9 % (0-4); Lymphocytes # 6.6 K/mcL (0.6-4.6); Lymphocytes % 49.8 %; Mean Corpuscular HGB Conc 29.7 g/dL (31.6-35.5); Mean Corpuscular Hemoglobin 25.9 pg (28.0-33.3); Mean Platelet Volume 9.8 fL (9.4-12.4); Monocytes # 0.7 K/mcL (0.0-1.3); Monocytes % 5.3 %; Platelet Count 310 K/mcL (140-400); Red Blood Count 4.44 M/mcL (3.82-4.97); Red Cell Distribution Width 18.8 % (11.5-14.5); Segmented Neutrophils % 37.7 %; White Blood Count 13.2 K/mcL (4.3-11.1)
[2019-06-06 05:11] LABS: Mean Corpuscular Volume 87.2 fL (83.0-100.0)
[2019-06-06 05:12] LABS: INR 1.2; Prothrombin Time 13.1 Seconds (9.4-12.1)
[2019-06-06 05:15] LABS: Activated Partial Thrombo Time 35.6 Seconds (26.0-36.0)
[2019-06-06 05:20] LABS: VBG HCO3 23 mEq/L (21-27); VBG PCO2 62 mmHg (41-51); VBG PH 7.18 pH Units (7.32-7.42); VBG PO2 87 mmHg (25-50)
[2019-06-06 05:33] LABS: Calcium 8.5 mg/dL (8.6-10.3); Potassium 4.6 mEq/L (3.5-5.1)
[2019-06-06] MEDS ORDERED: Azithromycin 500 MG in D5% in Water 250 ML IVPB ONE (06:22)
[2019-06-06] MEDS ORDERED: cefTRIAXone 1,000 MG in Water for inj. (sterile) 10 ML IVP ONE (06:23)
[2019-06-06] MEDS ORDERED: Naloxone 0.4 MG/ML INJ IVP PRN (07:23)
[2019-06-06] MEDS: Budesonide/Formoterol 160/4.5 1 PUFF INH IH SCH ×2 (07:57→20:06)
[2019-06-06] MEDS: Ipratropium/Albuterol Neb 3 ML IH SCH ×5 (07:57→20:06)
[2019-06-06] MEDS ORDERED: Furosemide 40 MG/4 ML VIAL IVP SCH ×4 (08:15→17:45)
[2019-06-06] MEDS ORDERED: Furosemide 40 MG TABLET PO SCH (09:00)
[2019-06-06] MEDS: Apixaban 2.5 MG TABLET PO SCH ×2 (10:28→20:14)
[2019-06-06] MEDS ORDERED: *HR* Heparin 10,000 UNIT/10 ML VIAL IV PRN (10:51)
[2019-06-06] MEDS ORDERED: 0.9 % Sodium Chloride 250 ML IVC PRN (10:51)
[2019-06-06] MEDS ORDERED: 0.9 % Sodium Chloride 1,000 ML PRIME SCH (11:00)
[2019-06-06] MEDS: Isosorbide MONOnitrate (24 HR) 30 MG TAB.ER.24H PO SCH (11:05)
[2019-06-06] MEDS: Metoprolol XL (24 HR) Succ 50 MG TAB.ER.24H PO SCH (11:05)
[2019-06-06 11:54] LABS: RBC,Pleural Fluid 0.002 M/mcL
[2019-06-06 11:55] LABS: Appearance of Pleural Fl Cloudy (Clear)
[2019-06-06] MEDS ORDERED: NON-FORMULARY MEDICATION 1 EACH EACH (Fluticasone/Umeclidin/Vilanter [Trelegy Ellipta 100- IH SCH (12:00)
[2019-06-06 12:11] LABS: Amylase,Pleural Fluid 23 Units/L (No Ref Range); Glucose,Pleural Fluid 153 mg/dL (No Ref Range); LDH,Pleural Fluid 43 Units/L (No Ref Range); Total Protein,Pleural Fluid < 3.0 g/dL
[2019-06-06 12:40] LABS: Basophils,Pleural Fluid 0 %; Eosinophils,Pleural Fluid 0 %; Monocytes,Pleural Fluid 0 %
[2019-06-06] MEDS: *HR* LORazepam 0.5 MG TABLET PO PRN (17:46)
[2019-06-06] MEDS: MethylPREDNISolone 40 MG/ML VIAL IVP SCH ×2 (17:46→23:46)
[2019-06-06] MEDS: Levalbuterol Neb 1.25 MG/3 ML IH SCH (23:40)
[2019-06-07] MEDS: Levalbuterol Neb 1.25 MG/3 ML IH SCH ×6 (00:05→20:14)
[2019-06-07] MEDS: *HR* LORazepam 0.5 MG TABLET PO PRN ×2 (00:32→17:13)
[2019-06-07] MEDS: cefTRIAXone 1,000 MG in Water for inj. (sterile) 10 ML IVP SCH (05:09)
[2019-06-07] MEDS: Azithromycin 500 MG in 0.9 % Sodium Chloride 250 ML IVPB SCH (05:10)
[2019-06-07 08:31] LABS: Basophils % 0.1 %; Hematocrit 34.3 % (35.3-44.9); Hemoglobin 11.1 g/dL (11.5-15.4); Lymphocytes # 0.6 K/mcL (0.6-4.6); Lymphocytes % 4.2 %; Mean Corpuscular HGB Conc 32.4 g/dL (31.6-35.5); Mean Corpuscular Hemoglobin 26.1 pg (28.0-33.3); Mean Platelet Volume 10.7 fL (9.4-12.4); Monocytes # 0.2 K/mcL (0.0-1.3); Monocytes % 1.6 %; Neutrophils # 12.7 K/mcL (1.6-8.9); Platelet Count 277 K/mcL (140-400); Red Blood Count 4.25 M/mcL (3.82-4.97); Red Cell Distribution Width 18.7 % (11.5-14.5); Segmented Neutrophils % 93.1 %; White Blood Count 13.7 K/mcL (4.3-11.1)
[2019-06-07] MEDS ORDERED: 0.9 % Sodium Chloride 250 ML IVC PRN (08:51)
[2019-06-07] MEDS ORDERED: *HR* Heparin 10,000 UNIT/10 ML VIAL IV PRN (08:51)
[2019-06-07 08:54] LABS: Calcium 9.1 mg/dL (8.6-10.3); Magnesium 1.2 mg/dL (1.6-2.6); Phosphorous 4.1 mg/dL (2.7-4.5); Potassium 4.9 mEq/L (3.5-5.1)
[2019-06-07 08:56] LABS: Mean Corpuscular Volume 80.7 fL (83.0-100.0)
[2019-06-07] MEDS: Isosorbide MONOnitrate (24 HR) 30 MG TAB.ER.24H PO SCH (09:13)
[2019-06-07] MEDS: Metoprolol XL (24 HR) Succ 50 MG TAB.ER.24H PO SCH (09:13)
[2019-06-07] MEDS: Apixaban 2.5 MG TABLET PO SCH ×2 (09:50→20:06)
[2019-06-07] MEDS: MethylPREDNISolone 40 MG/ML VIAL IVP SCH (09:50)
[2019-06-07] MEDS: Budesonide/Formoterol 160/4.5 1 PUFF INH IH SCH ×2 (10:34→20:15)
[2019-06-07] MEDS: *HR* Digoxin 0.125 MG TABLET PO SCH (17:18)
[2019-06-07] MEDS: Spironolactone 25 MG TABLET PO SCH (17:18)
[2019-06-08] MEDS: Levalbuterol Neb 1.25 MG/3 ML IH SCH ×7 (00:51→23:13)
[2019-06-08] MEDS: cefTRIAXone 1,000 MG in Water for inj. (sterile) 10 ML IVP SCH (05:33)
[2019-06-08] MEDS: Azithromycin 500 MG in 0.9 % Sodium Chloride 250 ML IVPB SCH (05:34)
[2019-06-08] MEDS: Budesonide/Formoterol 160/4.5 1 PUFF INH IH SCH ×2 (07:58→19:41)
[2019-06-08 08:23] LABS: Hematocrit 32.9 % (35.3-44.9); Hemoglobin 10.2 g/dL (11.5-15.4); Immature Granulocytes % 0.8 % (0-4); Lymphocytes # 1.4 K/mcL (0.6-4.6); Lymphocytes % 6.4 %; Mean Corpuscular Volume 83.9 fL (83.0-100.0); Mean Platelet Volume 9.6 fL (9.4-12.4); Monocytes # 0.8 K/mcL (0.0-1.3); Monocytes % 3.7 %; Neutrophils # 18.9 K/mcL (1.6-8.9); Platelet Count 305 K/mcL (140-400); Red Blood Count 3.92 M/mcL (3.82-4.97); Red Cell Distribution Width 19.4 % (11.5-14.5); Segmented Neutrophils % 89.1 %
[2019-06-08 08:25] LABS: White Blood Count 21.2 K/mcL (4.3-11.1)
[2019-06-08] MEDS: Apixaban 2.5 MG TABLET PO SCH ×2 (08:35→19:58)
[2019-06-08] MEDS: Metoprolol XL (24 HR) Succ 50 MG TAB.ER.24H PO SCH (08:35)
[2019-06-08] MEDS: Isosorbide MONOnitrate (24 HR) 30 MG TAB.ER.24H PO SCH (08:35)
[2019-06-08] MEDS: predniSONE 20 MG TABLET PO SCH (08:35)
[2019-06-08] MEDS: Spironolactone 25 MG TABLET PO SCH (08:35)
[2019-06-08] MEDS: *HR* Digoxin 0.125 MG TABLET PO SCH (08:36)
[2019-06-08 08:44] LABS: Calcium 9.2 mg/dL (8.6-10.3); Digoxin 0.3 ng/mL (0.8-2.0); Magnesium 2.1 mg/dL (1.6-2.6); Potassium 4.3 mEq/L (3.5-5.1)
[2019-06-08] MEDS ORDERED: Metoprolol XL (24 HR) Succ 50 MG TAB.ER.24H PO ONE (18:11)
[2019-06-08] MEDS: Mirtazapine 15 MG TABLET PO SCH (19:58)
[2019-06-08] MEDS: *HR* LORazepam 0.5 MG TABLET PO PRN (19:58)
[2019-06-09] MEDS: Levalbuterol Neb 1.25 MG/3 ML IH SCH ×6 (03:40→23:46)
[2019-06-09 05:39] LABS: Basophils % 0.1 %; Hematocrit 29.9 % (35.3-44.9); Hemoglobin 9.9 g/dL (11.5-15.4); Immature Granulocytes % 0.8 % (0-4); Lymphocytes # 1.3 K/mcL (0.6-4.6); Lymphocytes % 7.8 %; Mean Corpuscular HGB Conc 33.1 g/dL (31.6-35.5); Mean Corpuscular Hemoglobin 26.2 pg (28.0-33.3); Mean Corpuscular Volume 79.1 fL (83.0-100.0); Mean Platelet Volume 9.4 fL (9.4-12.4); Monocytes # 0.6 K/mcL (0.0-1.3); Monocytes % 3.5 %; Neutrophils # 14.6 K/mcL (1.6-8.9); Platelet Count 318 K/mcL (140-400); Red Blood Count 3.78 M/mcL (3.82-4.97); Red Cell Distribution Width 18.3 % (11.5-14.5); Segmented Neutrophils % 87.8 %; White Blood Count 16.6 K/mcL (4.3-11.1)
[2019-06-09 06:00] LABS: Digoxin 0.5 ng/mL (0.8-2.0); Magnesium 1.8 mg/dL (1.6-2.6); Potassium 4.2 mEq/L (3.5-5.1)
[2019-06-09] MEDS: cefTRIAXone 1,000 MG in Water for inj. (sterile) 10 ML IVP SCH (07:00)
[2019-06-09] MEDS: Azithromycin 500 MG in 0.9 % Sodium Chloride 250 ML IVPB SCH (07:00)
[2019-06-09] MEDS: Budesonide/Formoterol 160/4.5 1 PUFF INH IH SCH ×2 (07:26→20:28)
[2019-06-09] MEDS ORDERED: *HR* Heparin 10,000 UNIT/10 ML VIAL IV PRN (07:51)
[2019-06-09] MEDS ORDERED: 0.9 % Sodium Chloride 250 ML IVC PRN (07:51)
[2019-06-09] MEDS ORDERED: 0.9 % Sodium Chloride 1,000 ML PRIME SCH (08:00)
[2019-06-09] MEDS: Apixaban 2.5 MG TABLET PO SCH ×2 (08:04→20:50)
[2019-06-09] MEDS: Spironolactone 25 MG TABLET PO SCH (12:42)
[2019-06-09] MEDS: Metoprolol XL (24 HR) Succ 50 MG TAB.ER.24H PO SCH (12:42)
[2019-06-09] MEDS: predniSONE 20 MG TABLET PO SCH (12:42)
[2019-06-09] MEDS: Isosorbide MONOnitrate (24 HR) 30 MG TAB.ER.24H PO SCH (12:42)
[2019-06-09] MEDS: *HR* Digoxin 0.125 MG TABLET PO SCH (12:42)
[2019-06-09 16:43] LABS: Calcium 8.5 mg/dL (8.6-10.3); Potassium 3.8 mEq/L (3.5-5.1)
[2019-06-09] MEDS: *HR* LORazepam 0.5 MG TABLET PO PRN (20:50)
[2019-06-09] MEDS: Mirtazapine 15 MG TABLET PO SCH (20:50)
[2019-06-10] MEDS: Levalbuterol Neb 1.25 MG/3 ML IH SCH ×3 (04:04→11:25)
[2019-06-10 05:59] LABS: Hematocrit 37.1 % (35.3-44.9); Hemoglobin 11.4 g/dL (11.5-15.4); Immature Granulocytes % 0.5 % (0-4); Lymphocytes # 1.1 K/mcL (0.6-4.6); Mean Corpuscular HGB Conc 30.7 g/dL (31.6-35.5); Mean Corpuscular Hemoglobin 25.8 pg (28.0-33.3); Mean Corpuscular Volume 83.9 fL (83.0-100.0); Mean Platelet Volume 9.4 fL (9.4-12.4); Monocytes # 0.4 K/mcL (0.0-1.3); Monocytes % 3.8 %; Neutrophils # 8.1 K/mcL (1.6-8.9); Platelet Count 339 K/mcL (140-400); Red Blood Count 4.42 M/mcL (3.82-4.97); Red Cell Distribution Width 18.6 % (11.5-14.5); Segmented Neutrophils % 84.7 %; White Blood Count 9.6 K/mcL (4.3-11.1)
[2019-06-10 06:22] LABS: Calcium 9.2 mg/dL (8.6-10.3); Magnesium 1.7 mg/dL (1.6-2.6); Potassium 4.2 mEq/L (3.5-5.1)
[2019-06-10] MEDS: *HR* LORazepam 0.5 MG TABLET PO PRN (06:22)
[2019-06-10] MEDS: Budesonide/Formoterol 160/4.5 1 PUFF INH IH SCH (07:22)
[2019-06-10] MEDS ORDERED: *HR* Heparin 10,000 UNIT/10 ML VIAL IV PRN (07:37)
[2019-06-10] MEDS ORDERED: 0.9 % Sodium Chloride 250 ML IVC PRN (07:37)
[2019-06-10] MEDS ORDERED: 0.9 % Sodium Chloride 1,000 ML PRIME SCH (07:45)
[2019-06-10] MEDS ORDERED: cefTRIAXone 1,000 MG in 0.9 % Sodium Chloride Mini Bag 100 ML IVPB SCH (09:00)
[2019-06-10] MEDS ORDERED: Azithromycin 250 MG TABLET PO SCH (09:00)
[2019-06-10] MEDS: predniSONE 20 MG TABLET PO SCH (09:55)
[2019-06-10] MEDS: Isosorbide MONOnitrate (24 HR) 30 MG TAB.ER.24H PO SCH (09:56)
[2019-06-10] MEDS: Spironolactone 25 MG TABLET PO SCH (09:57)
[2019-06-10] MEDS: Apixaban 2.5 MG TABLET PO SCH (09:57)
[2019-06-10] MEDS: *HR* Digoxin 0.125 MG TABLET PO SCH (10:50)
[2019-06-10 12:17] VITALS: BP 126/89
[2019-06-10] MEDS: Metoprolol XL (24 HR) Succ 50 MG TAB.ER.24H PO SCH (12:49)
[2019-06-11] MEDS ORDERED: *HR* Digoxin 0.125 MG TABLET PO SCH (09:00)
== END 2019-06-10 15:42 | disposition home health service (06) | DRG 871 ==
LOC: 2ANU 04:21 → EMEROOARM 04:21 → 2ANU 07:38 → SUATTDRO 06-07 15:02
PROVIDERS: ADMIT Internal Medicine; ATTEND Pharmacist

== ENCOUNTER 2019-07-12 06:19 | Inpatient (IN) ==
[2019-07-12] MEDS ORDERED: Ipratropium/Albuterol Neb 3 ML IH ONE (06:58)
[2019-07-12] MEDS ORDERED: methylPREDNISolone 125 MG/2 ML VIAL IVP ONE (06:58)
[2019-07-12 07:18] LABS: Basophils # 0.1 K/mcL (0.0-0.2); Basophils % 0.6 %; Eosinophils # 0.1 K/mcL (0.0-0.6); Eosinophils % 0.4 %; Hematocrit 49.9 % (35.3-44.9); Hemoglobin 14.8 g/dL (11.5-15.4); Immature Granulocytes % 2.4 % (0-4); Lymphocytes # 3.5 K/mcL (0.6-4.6); Lymphocytes % 20.5 %; Mean Corpuscular HGB Conc 29.7 g/dL (31.6-35.5); Mean Corpuscular Hemoglobin 28.4 pg (28.0-33.3); Mean Platelet Volume 9.2 fL (9.4-12.4); Monocytes # 1.1 K/mcL (0.0-1.3); Monocytes % 6.2 %; Neutrophils # 11.9 K/mcL (1.6-8.9); Nucleated Red Blood Cells 0.1 /100 WBC (0); Platelet Count 265 K/mcL (140-400); Red Blood Count 5.22 M/mcL (3.82-4.97); Red Cell Distribution Width 22.8 % (11.5-14.5); Segmented Neutrophils % 69.9 %
[2019-07-12 07:19] LABS: Mean Corpuscular Volume 95.6 fL (83.0-100.0)
[2019-07-12 08:52] LABS: ABG Base Excess -7 mEq/L (-2 to 3); ABG HCO3 20 mEq/L (21-27); ABG Oxygen Saturation 96 % (95-98); ABG PCO2 44 mmHg (35-45); ABG PH 7.26 pH Units (7.32-7.45); ABG PO2 93 mmHg (85-104); ABG TCO2 21 mEq/L (20-26)
[2019-07-12 09:16] LABS: Potassium 5.9 mEq/L (3.5-5.1)
[2019-07-12] MEDS ORDERED: Naloxone 0.4 MG/ML INJ IVP PRN (09:48)
[2019-07-12] MEDS ORDERED: 0.9 % Sodium Chloride 250 ML IVC PRN (10:15)
[2019-07-12] MEDS ORDERED: 0.9 % Sodium Chloride 1,000 ML PRIME SCH (10:15)
[2019-07-12 12:15] LABS: Hepatitis B Surface Antibody 124.43 mIU/mL
[2019-07-12 12:26] LABS: Hepatitis B Surface Antigen Nonreactive (Nonreactive)
[2019-07-12] MEDS: Levalbuterol Neb 0.63 MG/3 ML IH SCH ×2 (15:31→21:10)
[2019-07-12] MEDS: Furosemide 40 MG TABLET PO SCH (18:25)
[2019-07-12] MEDS: Apixaban 2.5 MG TABLET PO SCH (20:15)
[2019-07-12] MEDS: *HR* LORazepam 0.5 MG TABLET PO PRN (20:16)
[2019-07-12] MEDS: Budesonide Neb 0.5 MG/2 ML IH SCH (21:10)
[2019-07-12] MEDS: Budesonide/Formoterol 160/4.5 1 PUFF INH IH SCH (21:10)
[2019-07-13] MEDS: *HR* LORazepam 0.5 MG TABLET PO PRN (04:59)
[2019-07-13 07:56] LABS: Basophils % 0.3 %; Eosinophils # 0.1 K/mcL (0.0-0.6); Eosinophils % 0.4 %; Hematocrit 44.3 % (35.3-44.9); Hemoglobin 13.3 g/dL (11.5-15.4); Immature Granulocytes % 1.1 % (0-4); Lymphocytes % 15.7 %; Mean Corpuscular Hemoglobin 28.2 pg (28.0-33.3); Mean Corpuscular Volume 93.9 fL (83.0-100.0); Mean Platelet Volume 9.5 fL (9.4-12.4); Monocytes # 0.8 K/mcL (0.0-1.3); Monocytes % 6.7 %; Neutrophils # 9.4 K/mcL (1.6-8.9); Nucleated Red Blood Cells 0.2 /100 WBC (0); Platelet Count 157 K/mcL (140-400); Red Blood Count 4.72 M/mcL (3.82-4.97); Red Cell Distribution Width 22.6 % (11.5-14.5); Segmented Neutrophils % 75.8 %; White Blood Count 12.4 K/mcL (4.3-11.1)
[2019-07-13] MEDS: Isosorbide MONOnitrate (24 HR) 30 MG TAB.ER.24H PO SCH (08:23)
[2019-07-13] MEDS: *HR* LORazepam 0.5 MG TABLET PO SCH ×3 (08:23→20:51)
[2019-07-13] MEDS: Apixaban 2.5 MG TABLET PO SCH ×2 (08:23→20:50)
[2019-07-13] MEDS: Furosemide 40 MG TABLET PO SCH ×2 (08:24→15:45)
[2019-07-13] MEDS ORDERED: Metoprolol XL (24 HR) Succ 50 MG TAB.ER.24H PO SCH (09:00)
[2019-07-13] MEDS ORDERED: predniSONE 20 MG TABLET PO SCH (09:00)
[2019-07-13] MEDS: Levalbuterol Neb 0.63 MG/3 ML IH SCH ×3 (09:38→21:02)
[2019-07-13] MEDS: Budesonide Neb 0.5 MG/2 ML IH SCH ×2 (09:38→21:02)
[2019-07-13] MEDS: Budesonide/Formoterol 160/4.5 1 PUFF INH IH SCH (09:51)
[2019-07-13 09:54] LABS: Albumin 3.3 g/dL (3.5-5.7); Albumin/Globulin Ratio 1.6 (1.1-2.2); Bilirubin,Total 0.4 mg/dL (0.3-1.0); Calcium 7.9 mg/dL (8.6-10.3); Globulin 2.1 g/dL (2.4-3.5); Potassium 3.8 mEq/L (3.5-5.1); Total Protein 5.4 g/dL (6.4-8.9); Troponin I 0.06 ng/mL (< 0.04)
[2019-07-13] MEDS: Levalbuterol Neb 1.25 MG/3 ML IH SCH ×2 (15:18→21:04)
[2019-07-13] MEDS ORDERED: carvediloL 6.25 MG TABLET PO SCH (17:00)
[2019-07-13] MEDS ORDERED: Piperacillin/Tazobactam 3.375 GM in 0.9 % Sodium Chloride Mini Bag 100 ML IVPB SCH (18:00)
[2019-07-14 00:36] LABS: Basophils % 0.2 %; Eosinophils # 0.2 K/mcL (0.0-0.6); Eosinophils % 1.5 %; Hematocrit 37.6 % (35.3-44.9); Lymphocytes # 1.8 K/mcL (0.6-4.6); Lymphocytes % 17.5 %; Mean Corpuscular HGB Conc 30.6 g/dL (31.6-35.5); Mean Corpuscular Hemoglobin 27.9 pg (28.0-33.3); Mean Corpuscular Volume 91.3 fL (83.0-100.0); Mean Platelet Volume 9.4 fL (9.4-12.4); Monocytes # 0.9 K/mcL (0.0-1.3); Monocytes % 8.5 %; Neutrophils # 7.1 K/mcL (1.6-8.9); Platelet Count 199 K/mcL (140-400); Red Blood Count 4.12 M/mcL (3.82-4.97); Red Cell Distribution Width 21.5 % (11.5-14.5); Segmented Neutrophils % 71.3 %
[2019-07-14 00:37] LABS: Hemoglobin 11.5 g/dL (11.5-15.4)
[2019-07-14 00:53] LABS: Calcium 7.3 mg/dL (8.6-10.3); Potassium 4.3 mEq/L (3.5-5.1)
[2019-07-14] MEDS: Metoprolol XL (24 HR) Succ 50 MG TAB.ER.24H PO SCH ×2 (06:18→10:30)
[2019-07-14] MEDS ORDERED: 0.9 % Sodium Chloride 250 ML IVC PRN (06:55)
[2019-07-14] MEDS ORDERED: *HR* Heparin 5,000 UNIT/ML VIAL IVP PRN ×2 (07:57)
[2019-07-14] MEDS ORDERED: Heparin 25,000 UNIT/250 ML D5W 25,000 UNIT/250 ML IV.SOLN IVC SCH ×2 (08:00→08:05)
[2019-07-14] MEDS: Levalbuterol Neb 0.63 MG/3 ML IH SCH ×3 (09:11→22:13)
[2019-07-14] MEDS: Budesonide Neb 0.5 MG/2 ML IH SCH ×2 (09:11→22:13)
[2019-07-14 10:22] LABS: Hematocrit 35.8 % (35.3-44.9); Hemoglobin 11.3 g/dL (11.5-15.4); Mean Corpuscular HGB Conc 31.6 g/dL (31.6-35.5); Mean Corpuscular Hemoglobin 28.7 pg (28.0-33.3); Mean Corpuscular Volume 90.9 fL (83.0-100.0); Mean Platelet Volume 9.1 fL (9.4-12.4); Platelet Count 200 K/mcL (140-400); Red Blood Count 3.94 M/mcL (3.82-4.97); Red Cell Distribution Width 21.2 % (11.5-14.5); White Blood Count 7.7 K/mcL (4.3-11.1)
[2019-07-14] MEDS: Furosemide 40 MG TABLET PO SCH ×2 (10:28→18:12)
[2019-07-14] MEDS: *HR* LORazepam 0.5 MG TABLET PO SCH ×3 (10:28→21:22)
[2019-07-14] MEDS: Isosorbide MONOnitrate (24 HR) 30 MG TAB.ER.24H PO SCH (10:28)
[2019-07-14 10:38] LABS: Prothrombin Time 11.1 Seconds (9.4-12.1)
[2019-07-14 10:39] LABS: Heparin anti-factor XA UFH 0.35 IU/mL (0.30-0.70)
[2019-07-14] MEDS ORDERED: *HR* Heparin 5,000 UNIT/ML VIAL ONE (12:21)
[2019-07-15 01:35] LABS: Calcium 7.8 mg/dL (8.6-10.3); Potassium 4.6 mEq/L (3.5-5.1)
[2019-07-15] MEDS ORDERED: 0.9 % Sodium Chloride 250 ML IVC PRN (06:54)
[2019-07-15] MEDS: *HR* LORazepam 0.5 MG TABLET PO SCH (08:23)
[2019-07-15] MEDS ORDERED: Apixaban 5 MG TABLET PO SCH (09:00)
[2019-07-15] MEDS: Levalbuterol Neb 0.63 MG/3 ML IH SCH (10:27)
[2019-07-15] MEDS: Budesonide Neb 0.5 MG/2 ML IH SCH (10:27)
[2019-07-15] MEDS ORDERED: *HR* Heparin 10,000 UNIT/10 ML VIAL IV PRN (11:04)
[2019-07-15] MEDS: Metoprolol XL (24 HR) Succ 50 MG TAB.ER.24H PO SCH (13:01)
[2019-07-15] MEDS: Isosorbide MONOnitrate (24 HR) 30 MG TAB.ER.24H PO SCH (13:02)
[2019-07-15] MEDS: Furosemide 40 MG TABLET PO SCH (13:02)
[2019-07-15 13:29] VITALS: BP 117/0
== END 2019-07-15 13:30 | disposition home health service (06) | DRG 280 ==
LOC: 2ANU 06:19 → EMEROOARM 06:19 → SUATTDRO 10:10 → 2ANU 11:02
PROVIDERS: ADMIT Internal Medicine; ATTEND Internal Medicine

== ENCOUNTER 2019-07-31 06:15 | Observation (INO) ==
[2019-07-31] MEDS ORDERED: *HR* LORazepam 2 MG/ML VIAL ONE (06:31)
[2019-07-31] MEDS: *HR* LORazepam 2 MG/ML VIAL IVP ONE ×2 (06:44→08:33)
[2019-07-31 06:45] LABS: Hematocrit 44.6 % (35.3-44.9); Hemoglobin 13.5 g/dL (11.5-15.4); Mean Corpuscular HGB Conc 30.3 g/dL (31.6-35.5); Mean Corpuscular Hemoglobin 28.5 pg (28.0-33.3); Mean Corpuscular Volume 94.3 fL (83.0-100.0); Mean Platelet Volume 9.4 fL (9.4-12.4); Platelet Count 233 K/mcL (140-400); Red Blood Count 4.73 M/mcL (3.82-4.97); Red Cell Distribution Width 18.8 % (11.5-14.5)
[2019-07-31] MEDS ORDERED: Furosemide 40 MG/4 ML VIAL IVP ONE (06:47)
[2019-07-31 07:07] LABS: Calcium 8.5 mg/dL (8.6-10.3); Potassium 5.3 mEq/L (3.5-5.1)
[2019-07-31 07:10] LABS: Troponin I 0.04 ng/mL (< 0.04)
[2019-07-31] MEDS ORDERED: Aspirin 325 MG TABLET PO ONE (07:25)
[2019-07-31 07:59] LABS: VBG HCO3 19 mEq/L (21-27); VBG PCO2 45 mmHg (41-51); VBG PH 7.23 pH Units (7.32-7.42); VBG PO2 86 mmHg (25-50)
[2019-07-31] MEDS ORDERED: *HR* LORazepam 1 MG TABLET PO ONE (08:26)
[2019-07-31 08:39] LABS: Bilirubin,Urine Negative (Negative); Blood,Urine Negative (Negative); Clarity,Urine Cloudy (Clear); Color,Urine Yellow (Yellow); Glucose,Urine (UA) Normal (Normal); Ketones,Urine Negative (Negative); Leukocyte Esterase,Urine Small (Negative); Nitrite,Urine Negative (Negative); PH,Urine 6.5 pH Units (5.0-8.0); Protein,Urine 30 mg/dL (Neg-Trace); Specific Gravity,Urine 1.011 (1.010-1.025); Urobilinogen,Urine Normal (Normal)
[2019-07-31 08:41] LABS: Bacteria,Urine Moderate per hpf (None-Few); Hyaline Casts,Urine None Seen per lpf (None-Few); RBC,Urine 0-3 per hpf (0-3); Squamous Epithelial Cell,Urine Many per lpf (None-Few)
[2019-07-31] MEDS ORDERED: Naloxone 0.4 MG/ML INJ IVP PRN (09:37)
[2019-07-31] MEDS ORDERED: Ondansetron ODT 4 MG TAB.RAPDIS SL PRN (09:37)
[2019-07-31] MEDS ORDERED: *HR* Promethazine 25 MG/ML VIAL IVP PRN (09:37)
[2019-07-31] MEDS ORDERED: Ipratropium/Albuterol Neb 3 ML IH PRN (09:39)
[2019-07-31] MEDS ORDERED: *HR* LORazepam 0.5 MG TABLET PO PRN (09:41)
[2019-07-31] MEDS ORDERED: 0.9 % Sodium Chloride 250 ML IVC PRN (10:06)
[2019-07-31] MEDS ORDERED: *HR* Heparin 10,000 UNIT/10 ML VIAL IV PRN (10:06)
[2019-07-31] MEDS ORDERED: 0.9 % Sodium Chloride 1,000 ML PRIME SCH (10:15)
[2019-07-31] MEDS: Nitroglycerin 0.4 MG TAB.SUBL SL SCH (12:55)
[2019-07-31] MEDS: Simethicone 80 MG TAB.CHEW PO PRN ×2 (16:20→21:29)
[2019-07-31] MEDS: Apixaban 5 MG TABLET PO SCH (21:28)
[2019-08-01 01:03] LABS: Hematocrit 40.6 % (35.3-44.9); Hemoglobin 12.8 g/dL (11.5-15.4); Mean Corpuscular HGB Conc 31.5 g/dL (31.6-35.5); Mean Corpuscular Hemoglobin 28.7 pg (28.0-33.3); Mean Platelet Volume 9.3 fL (9.4-12.4); Platelet Count 202 K/mcL (140-400); Red Blood Count 4.46 M/mcL (3.82-4.97); Red Cell Distribution Width 18.5 % (11.5-14.5); White Blood Count 9.6 K/mcL (4.3-11.1)
[2019-08-01 01:08] LABS: Calcium 7.9 mg/dL (8.6-10.3); Potassium 4.8 mEq/L (3.5-5.1)
[2019-08-01 07:34] VITALS: BP 148/80
[2019-08-01] MEDS ORDERED: 0.9 % Sodium Chloride 250 ML IVC PRN (07:45)
[2019-08-01] MEDS ORDERED: 0.9 % Sodium Chloride 1,000 ML PRIME SCH (07:45)
[2019-08-01] MEDS ORDERED: *HR* Heparin 10,000 UNIT/10 ML VIAL IV PRN (07:45)
[2019-08-01] MEDS: Apixaban 5 MG TABLET PO SCH (08:40)
== END 2019-08-01 11:32 | disposition home or self-care (01) ==
LOC: EMEROOARM 06:15 → 2ANU 06:15 → SUATTDRO 08:49 → 2ANU 09:29
PROVIDERS: ADMIT Family Medicine; ATTEND Internal Medicine

== ENCOUNTER 2019-08-03 06:16 | Inpatient (IN) ==
[2019-08-03] MEDS: Nitroglycerin 0.4 MG TAB.SUBL SL PRN ×3 (07:02→07:17)
[2019-08-03 08:22] LABS: Basophils # 0.2 K/mcL (0.0-0.2); Basophils % 1.2 %; Eosinophils # 0.1 K/mcL (0.0-0.6); Eosinophils % 0.8 %; Hematocrit 46.1 % (35.3-44.9); Hemoglobin 14.2 g/dL (11.5-15.4); Immature Granulocytes % 4.1 % (0-4); Lymphocytes # 1.5 K/mcL (0.6-4.6); Lymphocytes % 9.9 %; Mean Corpuscular HGB Conc 30.8 g/dL (31.6-35.5); Mean Corpuscular Hemoglobin 28.2 pg (28.0-33.3); Mean Corpuscular Volume 91.5 fL (83.0-100.0); Mean Platelet Volume 8.9 fL (9.4-12.4); Monocytes # 1.1 K/mcL (0.0-1.3); Monocytes % 7.1 %; Platelet Count 248 K/mcL (140-400); Red Blood Count 5.04 M/mcL (3.82-4.97); Red Cell Distribution Width 18.3 % (11.5-14.5); Segmented Neutrophils % 76.9 %
[2019-08-03 08:23] LABS: Neutrophils # 11.5 K/mcL (1.6-8.9); White Blood Count 14.9 K/mcL (4.3-11.1)
[2019-08-03 08:27] LABS: Prothrombin Time 11.2 Seconds (9.4-12.1)
[2019-08-03 08:52] LABS: Troponin I 0.05 ng/mL (< 0.04)
[2019-08-03 09:09] LABS: Calcium 8.3 mg/dL (8.6-10.3); Potassium 5.3 mEq/L (3.5-5.1)
[2019-08-03] MEDS ORDERED: Ipratropium/Albuterol Neb 3 ML IH ONE (09:11)
[2019-08-03] MEDS ORDERED: 0.9 % Sodium Chloride 250 ML IVC PRN (10:27)
[2019-08-03] MEDS ORDERED: 0.9 % Sodium Chloride 1,000 ML PRIME SCH (10:30)
[2019-08-03] MEDS ORDERED: Ondansetron ODT 4 MG TAB.RAPDIS SL PRN (11:05)
[2019-08-03] MEDS ORDERED: Naloxone 0.4 MG/ML INJ IVP PRN (11:05)
[2019-08-03 11:09] LABS: ABG Base Excess -2 mEq/L (-2 to 3); ABG HCO3 24 mEq/L (21-27); ABG Oxygen Saturation 99 % (95-98); ABG PCO2 47 mmHg (35-45); ABG PH 7.32 pH Units (7.32-7.45); ABG PO2 146 mmHg (85-104); ABG TCO2 26 mEq/L (20-26); Blood Gas Pressure Support 6 cm H2O
[2019-08-03] MEDS ORDERED: Aminoglycoside Consult 1 EACH MC ONE (11:10)
[2019-08-03] MEDS ORDERED: *HR* LORazepam 0.5 MG TABLET PO PRN (11:15)
[2019-08-03] MEDS ORDERED: Furosemide 40 MG TABLET PO SCH (11:15)
[2019-08-03] MEDS ORDERED: Acetaminophen 325 MG TABLET PO PRN (11:17)
[2019-08-03] MEDS ORDERED: levoFLOXacin 750 MG/150 ML 750 MG/150 ML BAG IVPB SCH (11:30)
[2019-08-03] MEDS ORDERED: Cefepime HCl 1,000 MG in 0.9 % Sodium Chloride Mini Bag 100 ML IVP SCH (12:00)
[2019-08-03 14:54] LABS: Albumin 3.4 g/dL (3.5-5.7); Albumin/Globulin Ratio 1.2 (1.1-2.2); Bilirubin,Indirect 0.4 mg/dL (0.0-1.0); Bilirubin,Total 0.4 mg/dL (0.3-1.0); Globulin 2.8 g/dL (2.4-3.5); Total Protein 6.2 g/dL (6.4-8.9)
[2019-08-03] MEDS: Spironolactone 25 MG TABLET PO SCH (15:17)
[2019-08-03] MEDS: Isosorbide MONOnitrate (24 HR) 30 MG TAB.ER.24H PO SCH (15:17)
[2019-08-03] MEDS: Apixaban 2.5 MG TABLET PO SCH (21:30)
[2019-08-04 05:11] LABS: Hematocrit 35.7 % (35.3-44.9); Mean Corpuscular HGB Conc 32.5 g/dL (31.6-35.5); Mean Corpuscular Hemoglobin 28.9 pg (28.0-33.3); Mean Corpuscular Volume 88.8 fL (83.0-100.0); Mean Platelet Volume 9.9 fL (9.4-12.4); Platelet Count 250 K/mcL (140-400); Red Blood Count 4.02 M/mcL (3.82-4.97); Red Cell Distribution Width 17.5 % (11.5-14.5); White Blood Count 9.8 K/mcL (4.3-11.1)
[2019-08-04 05:16] LABS: Hemoglobin 11.6 g/dL (11.5-15.4)
[2019-08-04 05:30] LABS: Calcium 8.3 mg/dL (8.6-10.3); Potassium 4.7 mEq/L (3.5-5.1)
[2019-08-04] MEDS ORDERED: 0.9 % Sodium Chloride 250 ML IVC PRN (07:55)
[2019-08-04] MEDS: Apixaban 2.5 MG TABLET PO SCH ×2 (08:09→21:42)
[2019-08-04] MEDS ORDERED: Metoprolol XL (24 HR) Succ 50 MG TAB.ER.24H PO SCH (09:00)
[2019-08-04] MEDS: carvediloL 6.25 MG TABLET PO SCH ×2 (10:22→16:59)
[2019-08-04] MEDS ORDERED: Ipratropium/Albuterol Neb 3 ML IH PRN (10:37)
[2019-08-04] MEDS: Spironolactone 25 MG TABLET PO SCH (16:59)
[2019-08-04] MEDS: Isosorbide MONOnitrate (24 HR) 30 MG TAB.ER.24H PO SCH (16:59)
[2019-08-04] MEDS ORDERED: Cefepime HCl 1,000 MG in 0.9 % Sodium Chloride Mini Bag 100 ML IVPB SCH (17:00)
[2019-08-04] MEDS ORDERED: *HR* Metoprolol 5 MG/5 ML VIAL IVP ONE (18:19)
[2019-08-05] MEDS ORDERED: Simethicone 80 MG TAB.CHEW PO PRN (03:50)
[2019-08-05 06:08] LABS: Basophils # 0.1 K/mcL (0.0-0.2); Eosinophils # 0.3 K/mcL (0.0-0.6); Eosinophils % 4.1 %; Hematocrit 33.8 % (35.3-44.9); Hemoglobin 10.8 g/dL (11.5-15.4); Immature Granulocytes % 1.4 % (0-4); Lymphocytes # 1.5 K/mcL (0.6-4.6); Lymphocytes % 20.8 %; Mean Corpuscular Hemoglobin 28.3 pg (28.0-33.3); Mean Corpuscular Volume 88.7 fL (83.0-100.0); Mean Platelet Volume 9.1 fL (9.4-12.4); Monocytes # 0.7 K/mcL (0.0-1.3); Monocytes % 10.1 %; Neutrophils # 4.4 K/mcL (1.6-8.9); Platelet Count 264 K/mcL (140-400); Red Blood Count 3.81 M/mcL (3.82-4.97); Red Cell Distribution Width 17.4 % (11.5-14.5); Segmented Neutrophils % 62.6 %
[2019-08-05 06:22] LABS: Calcium 8.3 mg/dL (8.6-10.3); Potassium 4.2 mEq/L (3.5-5.1)
[2019-08-05] MEDS ORDERED: 0.9 % Sodium Chloride 250 ML IVC PRN (07:16)
[2019-08-05] MEDS: Apixaban 2.5 MG TABLET PO SCH (08:13)
[2019-08-05] MEDS ORDERED: *HR* LORazepam 0.5 MG TABLET PO SCH (09:00)
[2019-08-05] MEDS ORDERED: Metoprolol XL (24 HR) Succ 50 MG TAB.ER.24H PO SCH (09:00)
[2019-08-05] MEDS ORDERED: levoFLOXacin 750 MG TABLET PO ONE (10:31)
[2019-08-05 12:54] VITALS: BP 175/87
== END 2019-08-05 12:54 | disposition home health service (06) | DRG 291 ==
LOC: 2ANU 06:16 → EMEROOARM 06:16 → SUATTDRO 11:09 → 2ANU 12:56
PROVIDERS: ADMIT Family Medicine; ATTEND Internal Medicine

== ENCOUNTER 2019-08-08 04:16 | Inpatient (IN) ==
[2019-08-08 05:27] LABS: Basophils # 0.1 K/mcL (0.0-0.2); Basophils % 1.1 %; Eosinophils # 0.1 K/mcL (0.0-0.6); Eosinophils % 0.9 %; Hematocrit 42.7 % (35.3-44.9); INR 1.1; Immature Granulocytes % 5.1 % (0-4); Lymphocytes # 1.9 K/mcL (0.6-4.6); Lymphocytes % 18.2 %; Mean Corpuscular HGB Conc 30.7 g/dL (31.6-35.5); Mean Corpuscular Hemoglobin 28.4 pg (28.0-33.3); Mean Corpuscular Volume 92.4 fL (83.0-100.0); Mean Platelet Volume 9.3 fL (9.4-12.4); Monocytes # 0.5 K/mcL (0.0-1.3); Monocytes % 4.9 %; Neutrophils # 7.3 K/mcL (1.6-8.9); Platelet Count 322 K/mcL (140-400); Prothrombin Time 12.8 Seconds (9.4-12.1); Red Blood Count 4.62 M/mcL (3.82-4.97); Red Cell Distribution Width 17.5 % (11.5-14.5); Segmented Neutrophils % 69.8 %; White Blood Count 10.4 K/mcL (4.3-11.1)
[2019-08-08 05:28] LABS: ABG Base Excess -3 mEq/L (-2 to 3); ABG HCO3 23 mEq/L (21-27); ABG Oxygen Saturation 93 % (95-98); ABG PCO2 47 mmHg (35-45); ABG PH 7.31 pH Units (7.32-7.45); ABG PO2 75 mmHg (85-104); ABG TCO2 25 mEq/L (20-26)
[2019-08-08 05:30] LABS: Activated Partial Thrombo Time 30.8 Seconds (26.0-36.0)
[2019-08-08 05:33] LABS: Hemoglobin 13.1 g/dL (11.5-15.4)
[2019-08-08 05:39] LABS: Albumin 3.9 g/dL (3.5-5.7); Albumin/Globulin Ratio 1.4 (1.1-2.2); Bilirubin,Direct 0.1 mg/dL (0.0-0.2); Bilirubin,Indirect 0.3 mg/dL (0.0-1.0); Bilirubin,Total 0.4 mg/dL (0.3-1.0); Calcium 8.9 mg/dL (8.6-10.3); Globulin 2.7 g/dL (2.4-3.5); Magnesium 1.4 mg/dL (1.6-2.6); Phosphorous 3.8 mg/dL (2.7-4.5); Potassium 4.7 mEq/L (3.5-5.1); Total Protein 6.6 g/dL (6.4-8.9)
[2019-08-08 05:41] LABS: Troponin I 0.04 ng/mL (< 0.04)
[2019-08-08] MEDS ORDERED: Isovue-370 500 ML BOTTLE IVP ONE ×2 (06:18→06:42)
[2019-08-08 06:31] LABS: Platelet Estimate Normal (Normal); Reactive Lymphocytes Present (Not Present)
[2019-08-08] MEDS ORDERED: Furosemide 40 MG/4 ML VIAL IVP ONE (08:38)
[2019-08-08] MEDS ORDERED: Piperacillin/Tazobactam 3.375 GM in 0.9 % Sodium Chloride Mini Bag 100 ML IVPB ONE (08:56)
[2019-08-08] MEDS ORDERED: Metoprolol XL (24 HR) Succ 50 MG TAB.ER.24H PO SCH (09:00)
[2019-08-08] MEDS ORDERED: Naloxone 0.4 MG/ML INJ IVP PRN (09:14)
[2019-08-08] MEDS ORDERED: Acetaminophen 325 MG TABLET PO PRN (09:14)
[2019-08-08] MEDS ORDERED: *HR* Dextrose 50 % in Water (Syg) 50 ML SYRINGE IVP PRN (09:40)
[2019-08-08] MEDS ORDERED: D5% in Water 1,000 ML IVC PRN (09:40)
[2019-08-08] MEDS ORDERED: Dextrose Gel 15 GM/37.5 ML TUBE PO PRN ×2 (09:40)
[2019-08-08] MEDS ORDERED: Vancomycin 1 EACH in 0.9 % Sodium Chloride 250 ML IVPB SCH (10:00)
[2019-08-08] MEDS ORDERED: levoFLOXacin 750 MG/150 ML 750 MG/150 ML BAG IVPB ONE (10:00)
[2019-08-08] MEDS ORDERED: *HR* Labetalol 20 MG/4 ML SYRINGE IVP PRN (10:55)
[2019-08-08] MEDS: Ipratropium/Albuterol Neb 3 ML IH SCH ×3 (11:09→19:43)
[2019-08-08] MEDS: Insulin LISPRO 300 UNITS/3 ML VIAL SQ SCH ×2 (12:42→18:47)
[2019-08-08] MEDS ORDERED: 0.9 % Sodium Chloride 250 ML IVC PRN (13:42)
[2019-08-08] MEDS ORDERED: *HR* Heparin 10,000 UNIT/10 ML VIAL IV PRN (13:42)
[2019-08-08] MEDS ORDERED: 0.9 % Sodium Chloride 1,000 ML PRIME SCH (13:45)
[2019-08-08] MEDS: MethylPREDNISolone 40 MG/ML VIAL IVP SCH ×2 (17:36→17:54)
[2019-08-08] MEDS: Isosorbide MONOnitrate (24 HR) 30 MG TAB.ER.24H PO SCH (17:54)
[2019-08-08] MEDS: Spironolactone 25 MG TABLET PO SCH (17:54)
[2019-08-08] MEDS: Piperacillin/Tazobactam 3.375 GM in 0.9 % Sodium Chloride Mini Bag 100 ML IVPB SCH (20:06)
[2019-08-08] MEDS: Apixaban 2.5 MG TABLET PO SCH (20:06)
[2019-08-09] MEDS: Ipratropium/Albuterol Neb 3 ML IH SCH ×3 (00:05→07:32)
[2019-08-09] MEDS ORDERED: *HR* LORazepam 0.5 MG TABLET PO PRN (00:17)
[2019-08-09] MEDS: Insulin LISPRO 300 UNITS/3 ML VIAL SQ SCH ×2 (01:24→06:25)
[2019-08-09] MEDS: MethylPREDNISolone 40 MG/ML VIAL IVP SCH (05:35)
[2019-08-09] MEDS ORDERED: Furosemide 40 MG TABLET PO SCH (07:45)
[2019-08-09 07:48] LABS: Calcium 8.8 mg/dL (8.6-10.3); Magnesium 1.5 mg/dL (1.6-2.6); Phosphorous 6.5 mg/dL (2.7-4.5); Potassium 5.2 mEq/L (3.5-5.1)
[2019-08-09 08:30] LABS: Troponin I 0.04 ng/mL (< 0.04)
[2019-08-09] MEDS: Renal Vitamin 1 CAP CAPSULE PO SCH (08:40)
[2019-08-09] MEDS: *HR* LORazepam 0.5 MG TABLET PO SCH ×3 (08:40→22:11)
[2019-08-09] MEDS: Furosemide 40 MG/4 ML VIAL IVP SCH (08:40)
[2019-08-09] MEDS: Apixaban 2.5 MG TABLET PO SCH ×2 (08:40→22:05)
[2019-08-09] MEDS ORDERED: *HR* Heparin 10,000 UNIT/10 ML VIAL IV PRN (08:41)
[2019-08-09] MEDS ORDERED: 0.9 % Sodium Chloride 250 ML IVC PRN (08:41)
[2019-08-09] MEDS: levoFLOXacin 500 MG/100 ML 500 MG/100 ML BAG IVPB SCH (08:41)
[2019-08-09] MEDS ORDERED: MethylPREDNISolone 40 MG/ML VIAL IVP SCH (09:00)
[2019-08-09] MEDS: Piperacillin/Tazobactam 3.375 GM in 0.9 % Sodium Chloride Mini Bag 100 ML IVPB SCH ×2 (09:03→22:06)
[2019-08-09] MEDS: Levalbuterol 1 PUFF INHALER IH SCH ×3 (09:51→21:43)
[2019-08-09] MEDS ORDERED: Metoprolol XL (24 HR) Succ 50 MG TAB.ER.24H PO SCH (14:00)
[2019-08-09] MEDS: Spironolactone 25 MG TABLET PO SCH (14:45)
[2019-08-09] MEDS: Isosorbide MONOnitrate (24 HR) 30 MG TAB.ER.24H PO SCH (14:45)
[2019-08-09 20:19] LABS: Adenovirus Not Detected (Not Detect); Bordetella Pertussis Not Detected (Not Detect); Chlamydophila pneumoniae Not Detected (Not Detect); Coronavirus 229E Not Detected (Not Detect); Coronavirus HKU1 Not Detected (Not Detect); Coronavirus NL63 Not Detected (Not Detect); Coronavirus OC43 Not Detected (Not Detect); Human Metapneumovirus Not Detected (Not Detect); Human Rhinovirus/Enterovirus Not Detected (Not Detect); Influenza A Subtype 2009 H1 Not Detected (Not Detect); Influenza B Not Detected (Not Detect); Mycoplasma pneumoniae Not Detected (Not Detect); Parainfluenza Virus 1 Not Detected (Not Detect); Parainfluenza Virus 2 Not Detected (Not Detect); Parainfluenza Virus 3 Not Detected (Not Detect); Parainfluenza Virus 4 Not Detected (Not Detect); Respiratory Syncytial Virus Not Detected (Not Detect)
[2019-08-10] MEDS: Levalbuterol 1 PUFF INHALER IH SCH ×4 (04:01→22:03)
[2019-08-10] MEDS: Renal Vitamin 1 CAP CAPSULE PO SCH (08:32)
[2019-08-10] MEDS: Apixaban 2.5 MG TABLET PO SCH ×2 (08:33→23:37)
[2019-08-10] MEDS: Furosemide 40 MG/4 ML VIAL IVP SCH (08:33)
[2019-08-10] MEDS: *HR* LORazepam 0.5 MG TABLET PO SCH ×3 (08:33→23:37)
[2019-08-10] MEDS: Metoprolol XL (24 HR) Succ 50 MG TAB.ER.24H PO SCH ×2 (08:36→13:53)
[2019-08-10] MEDS: Piperacillin/Tazobactam 3.375 GM in 0.9 % Sodium Chloride Mini Bag 100 ML IVPB SCH ×2 (08:36→23:38)
[2019-08-10 11:17] LABS: Hematocrit 38.1 % (35.3-44.9); Mean Corpuscular HGB Conc 31.5 g/dL (31.6-35.5); Mean Corpuscular Hemoglobin 28.2 pg (28.0-33.3); Mean Corpuscular Volume 89.6 fL (83.0-100.0); Mean Platelet Volume 9.3 fL (9.4-12.4); Platelet Count 273 K/mcL (140-400); Red Blood Count 4.25 M/mcL (3.82-4.97); White Blood Count 10.3 K/mcL (4.3-11.1)
[2019-08-10 11:44] LABS: Calcium 8.4 mg/dL (8.6-10.3); Potassium 3.3 mEq/L (3.5-5.1)
[2019-08-10] MEDS: Spironolactone 25 MG TABLET PO SCH (14:04)
[2019-08-10] MEDS: Isosorbide MONOnitrate (24 HR) 30 MG TAB.ER.24H PO SCH (14:04)
[2019-08-11] MEDS: Levalbuterol 1 PUFF INHALER IH SCH ×4 (03:53→21:46)
[2019-08-11 07:00] LABS: Hematocrit 36.6 % (35.3-44.9); Hemoglobin 10.9 g/dL (11.5-15.4); Mean Corpuscular HGB Conc 29.8 g/dL (31.6-35.5); Mean Corpuscular Hemoglobin 28.1 pg (28.0-33.3); Mean Corpuscular Volume 94.3 fL (83.0-100.0); Mean Platelet Volume 9.2 fL (9.4-12.4); Platelet Count 241 K/mcL (140-400); Red Blood Count 3.88 M/mcL (3.82-4.97); Red Cell Distribution Width 17.7 % (11.5-14.5); White Blood Count 11.7 K/mcL (4.3-11.1)
[2019-08-11] MEDS ORDERED: Vancomycin 1 EACH in 0.9 % Sodium Chloride 250 ML IVPB PRN (07:15)
[2019-08-11 07:27] LABS: Calcium 8.1 mg/dL (8.6-10.3); Potassium 4.4 mEq/L (3.5-5.1)
[2019-08-11] MEDS ORDERED: 0.9 % Sodium Chloride 250 ML IVC PRN (07:33)
[2019-08-11] MEDS ORDERED: *HR* Heparin 10,000 UNIT/10 ML VIAL IV PRN (07:33)
[2019-08-11] MEDS ORDERED: 0.9 % Sodium Chloride 1,000 ML PRIME SCH (07:45)
[2019-08-11] MEDS: *HR* LORazepam 0.5 MG TABLET PO SCH ×3 (07:54→21:32)
[2019-08-11] MEDS: Furosemide 40 MG/4 ML VIAL IVP SCH (07:54)
[2019-08-11] MEDS: Metoprolol XL (24 HR) Succ 50 MG TAB.ER.24H PO SCH ×2 (07:54→09:40)
[2019-08-11] MEDS: Renal Vitamin 1 CAP CAPSULE PO SCH (07:54)
[2019-08-11] MEDS: Apixaban 2.5 MG TABLET PO SCH ×2 (07:55→21:33)
[2019-08-11] MEDS: Piperacillin/Tazobactam 3.375 GM in 0.9 % Sodium Chloride Mini Bag 100 ML IVPB SCH ×2 (07:55→18:07)
[2019-08-11] MEDS ORDERED: Vancomycin 250 MG in 0.9 % Sodium Chloride Mini Bag 100 ML IVPB ONE (11:36)
[2019-08-11] MEDS ORDERED: Acetaminophen 325 MG TABLET PO PRN (13:53)
[2019-08-11] MEDS: levoFLOXacin 500 MG/100 ML 500 MG/100 ML BAG IVPB SCH (13:57)
[2019-08-11] MEDS: Spironolactone 25 MG TABLET PO SCH (14:27)
[2019-08-11] MEDS: Isosorbide MONOnitrate (24 HR) 30 MG TAB.ER.24H PO SCH (14:27)
[2019-08-12] MEDS: Levalbuterol 1 PUFF INHALER IH SCH ×2 (04:16→10:40)
[2019-08-12] MEDS: Piperacillin/Tazobactam 3.375 GM in 0.9 % Sodium Chloride Mini Bag 100 ML IVPB SCH (05:50)
[2019-08-12 06:43] LABS: Hematocrit 37.1 % (35.3-44.9); Hemoglobin 11.8 g/dL (11.5-15.4); Mean Corpuscular HGB Conc 31.8 g/dL (31.6-35.5); Mean Corpuscular Hemoglobin 28.2 pg (28.0-33.3); Mean Corpuscular Volume 88.8 fL (83.0-100.0); Platelet Count 213 K/mcL (140-400); Red Blood Count 4.18 M/mcL (3.82-4.97); Red Cell Distribution Width 17.2 % (11.5-14.5); White Blood Count 9.7 K/mcL (4.3-11.1)
[2019-08-12 06:58] LABS: Potassium 4.3 mEq/L (3.5-5.1)
[2019-08-12] MEDS ORDERED: *HR* Heparin 10,000 UNIT/10 ML VIAL IV PRN ×2 (07:49)
[2019-08-12] MEDS ORDERED: 0.9 % Sodium Chloride 250 ML IVC PRN (07:49)
[2019-08-12] MEDS: Renal Vitamin 1 CAP CAPSULE PO SCH (07:52)
[2019-08-12] MEDS: Metoprolol XL (24 HR) Succ 50 MG TAB.ER.24H PO SCH (07:52)
[2019-08-12] MEDS: Apixaban 2.5 MG TABLET PO SCH (07:52)
[2019-08-12] MEDS: Furosemide 40 MG/4 ML VIAL IVP SCH (07:53)
[2019-08-12] MEDS: *HR* LORazepam 0.5 MG TABLET PO SCH ×2 (07:53→14:01)
[2019-08-12] MEDS ORDERED: 0.9 % Sodium Chloride 1,000 ML PRIME SCH (08:00)
[2019-08-12 12:08] VITALS: BP 106/69
[2019-08-12] MEDS: Spironolactone 25 MG TABLET PO SCH (14:01)
[2019-08-12] MEDS: Isosorbide MONOnitrate (24 HR) 30 MG TAB.ER.24H PO SCH (14:01)
[2019-08-12] MEDS ORDERED: Aminoglycoside Consult 1 EACH MC ONE (14:56)
[2019-08-13] MEDS ORDERED: levoFLOXacin 500 MG TABLET PO SCH (09:00)
== END 2019-08-12 14:57 | disposition home health service (06) | DRG 280 ==
LOC: 2ANU 04:16 → EMEROOARM 04:16 → SUATTDRO 09:40 → 2ANU 11:08
PROVIDERS: ADMIT Internal Medicine; ATTEND Internal Medicine

== ENCOUNTER 2019-08-25 06:11 | Inpatient (IN) ==
[2019-08-25] MEDS ORDERED: Nitroglycerin 0.4 MG TAB.SUBL SL ONE (06:54)
[2019-08-25] MEDS: Nitroglycerin 0.4 MG TAB.SUBL SL SCH ×3 (06:55→07:05)
[2019-08-25 07:26] LABS: Hemoglobin 13.4 g/dL (11.5-15.4); Mean Corpuscular HGB Conc 31.9 g/dL (31.6-35.5); Mean Corpuscular Hemoglobin 28.8 pg (28.0-33.3); Mean Corpuscular Volume 90.1 fL (83.0-100.0); Mean Platelet Volume 9.8 fL (9.4-12.4); Nucleated Red Blood Cells 0.4 /100 WBC (0); Platelet Count 225 K/mcL (140-400); Red Blood Count 4.66 M/mcL (3.82-4.97); Red Cell Distribution Width 19.9 % (11.5-14.5); White Blood Count 12.2 K/mcL (4.3-11.1)
[2019-08-25 07:48] LABS: Calcium 8.5 mg/dL (8.6-10.3); Potassium 4.9 mEq/L (3.5-5.1); Troponin I 0.03 ng/mL (< 0.04)
[2019-08-25] MEDS ORDERED: 0.9 % Sodium Chloride 250 ML IVC PRN (08:28)
[2019-08-25] MEDS ORDERED: 0.9 % Sodium Chloride 1,000 ML PRIME SCH (08:30)
[2019-08-25 08:31] LABS: Lymphocytes # 2.7 K/mcL (0.6-4.6); Monocytes # 0.2 K/mcL (0.0-1.3); Neutrophils # 9.3 K/mcL (1.6-8.9); Reactive Lymphocytes Present (Not Present)
[2019-08-25 08:34] LABS: Polychromasia 1+ (Not Present)
[2019-08-25 08:35] LABS: Anisocytosis 1+ (Not Present); Platelet Estimate Normal (Normal); Poikilocytosis 1+ (Not Present)
[2019-08-25] MEDS: Metoprolol XL (24 HR) Succ 50 MG TAB.ER.24H PO SCH (12:40)
[2019-08-25] MEDS ORDERED: Naloxone 0.4 MG/ML INJ IVP PRN (13:40)
[2019-08-25] MEDS: Spironolactone 25 MG TABLET PO SCH (14:13)
[2019-08-25] MEDS: Isosorbide MONOnitrate (24 HR) 30 MG TAB.ER.24H PO SCH (14:13)
[2019-08-25] MEDS: *HR* Labetalol 20 MG/4 ML SYRINGE IVP PRN ×3 (14:41→16:52)
[2019-08-25] MEDS ORDERED: Acetaminophen 325 MG TABLET PO PRN (15:01)
[2019-08-25] MEDS: Apixaban 2.5 MG TABLET PO SCH (20:17)
[2019-08-25] MEDS: *HR* LORazepam 0.5 MG TABLET PO SCH (22:54)
[2019-08-26] MEDS: Furosemide 40 MG/4 ML VIAL IVP SCH ×2 (04:38→08:01)
[2019-08-26 05:26] LABS: Basophils % 0.4 %; Eosinophils # 0.2 K/mcL (0.0-0.6); Eosinophils % 2.3 %; Hematocrit 36.4 % (35.3-44.9); Immature Granulocytes % 4.3 % (0-4); Lymphocytes # 2.1 K/mcL (0.6-4.6); Lymphocytes % 22.1 %; Mean Corpuscular HGB Conc 31.6 g/dL (31.6-35.5); Mean Corpuscular Hemoglobin 28.5 pg (28.0-33.3); Mean Corpuscular Volume 90.1 fL (83.0-100.0); Mean Platelet Volume 9.6 fL (9.4-12.4); Monocytes # 0.7 K/mcL (0.0-1.3); Monocytes % 7.1 %; Neutrophils # 6.1 K/mcL (1.6-8.9); Nucleated Red Blood Cells 0.2 /100 WBC (0); Platelet Count 160 K/mcL (140-400); Red Blood Count 4.04 M/mcL (3.82-4.97); Red Cell Distribution Width 19.4 % (11.5-14.5); Segmented Neutrophils % 63.8 %; White Blood Count 9.5 K/mcL (4.3-11.1)
[2019-08-26 05:31] LABS: Hemoglobin 11.5 g/dL (11.5-15.4)
[2019-08-26 05:44] LABS: % Iron Saturation 15 % (15-50); Iron 36 mcg/dL (50-170); Transferrin 166 mg/dL (203-362)
[2019-08-26 05:45] LABS: Albumin 3.2 g/dL (3.5-5.7); Albumin/Globulin Ratio 1.7 (1.1-2.2); Bilirubin,Total 0.5 mg/dL (0.3-1.0); Globulin 1.9 g/dL (2.4-3.5); Magnesium 1.4 mg/dL (1.6-2.6); Phosphorous 4.7 mg/dL (2.7-4.5); Total Protein 5.1 g/dL (6.4-8.9); Troponin I 0.03 ng/mL (< 0.04)
[2019-08-26] MEDS: *HR* Labetalol 20 MG/4 ML SYRINGE IVP PRN (05:50)
[2019-08-26 06:00] LABS: Anisocytosis 1+ (Not Present); Platelet Estimate Normal (Normal); Reactive Lymphocytes Present (Not Present)
[2019-08-26 06:01] LABS: Ferritin 426 ng/mL (10-120)
[2019-08-26] MEDS ORDERED: 0.9 % Sodium Chloride 250 ML IVC PRN (07:32)
[2019-08-26] MEDS: Apixaban 2.5 MG TABLET PO SCH ×2 (08:01→20:33)
[2019-08-26] MEDS: Metoprolol XL (24 HR) Succ 50 MG TAB.ER.24H PO SCH (08:02)
[2019-08-26] MEDS: hydrALAZINE 25 MG TABLET PO SCH ×3 (12:03→18:57)
[2019-08-26] MEDS: Spironolactone 25 MG TABLET PO SCH (14:51)
[2019-08-26] MEDS: Isosorbide MONOnitrate (24 HR) 30 MG TAB.ER.24H PO SCH (14:55)
[2019-08-26] MEDS: *HR* LORazepam 0.5 MG TABLET PO SCH ×2 (15:08→20:33)
[2019-08-27] MEDS: hydrALAZINE 25 MG TABLET PO SCH ×2 (00:38→08:08)
[2019-08-27 04:31] LABS: Hematocrit 37.6 % (35.3-44.9); Hemoglobin 11.6 g/dL (11.5-15.4); Mean Corpuscular HGB Conc 30.9 g/dL (31.6-35.5); Mean Corpuscular Hemoglobin 28.8 pg (28.0-33.3); Mean Corpuscular Volume 93.3 fL (83.0-100.0); Mean Platelet Volume 10.3 fL (9.4-12.4); Platelet Count 160 K/mcL (140-400); Red Blood Count 4.03 M/mcL (3.82-4.97); White Blood Count 9.5 K/mcL (4.3-11.1)
[2019-08-27 04:48] LABS: Calcium 8.4 mg/dL (8.6-10.3); Magnesium 2.4 mg/dL (1.6-2.6); Potassium 4.2 mEq/L (3.5-5.1)
[2019-08-27] MEDS ORDERED: carvediloL 6.25 MG TABLET PO SCH (08:00)
[2019-08-27] MEDS ORDERED: Furosemide 40 MG TABLET PO SCH (08:00)
[2019-08-27] MEDS: Apixaban 2.5 MG TABLET PO SCH (08:08)
[2019-08-27] MEDS: *HR* LORazepam 0.5 MG TABLET PO SCH (08:18)
[2019-08-27 11:13] VITALS: BP 115/59
== END 2019-08-27 11:47 | disposition home health service (06) | DRG 304 ==
LOC: EMEROOARM 06:11 → 2ANU 06:11 → SUATTDRO 08:32 → 2ANU 09:25
PROVIDERS: ADMIT Internal Medicine; ATTEND Internal Medicine

== ENCOUNTER 2019-09-20 06:15 | Observation (INO) ==
[2019-09-20] MEDS ORDERED: Ipratropium/Albuterol Neb 3 ML IH ONE (06:39)
[2019-09-20] MEDS: Nitroglycerin 0.4 MG TAB.SUBL SL SCH ×3 (06:56→07:11)
[2019-09-20 07:00] LABS: Basophils # 0.1 K/mcL (0.0-0.2); Basophils % 0.6 %; Eosinophils # 0.2 K/mcL (0.0-0.6); Eosinophils % 1.8 %; Hematocrit 44.7 % (35.3-44.9); Hemoglobin 13.7 g/dL (11.5-15.4); Immature Granulocytes % 1.4 % (0-4); Lymphocytes # 1.7 K/mcL (0.6-4.6); Lymphocytes % 14.6 %; Mean Corpuscular HGB Conc 30.6 g/dL (31.6-35.5); Mean Corpuscular Hemoglobin 28.2 pg (28.0-33.3); Mean Platelet Volume 9.3 fL (9.4-12.4); Monocytes # 0.4 K/mcL (0.0-1.3); Monocytes % 3.7 %; Neutrophils # 8.9 K/mcL (1.6-8.9); Platelet Count 347 K/mcL (140-400); Red Blood Count 4.86 M/mcL (3.82-4.97); Red Cell Distribution Width 15.9 % (11.5-14.5); Segmented Neutrophils % 77.9 %; White Blood Count 11.4 K/mcL (4.3-11.1)
[2019-09-20 07:19] LABS: Calcium 8.6 mg/dL (8.6-10.3)
[2019-09-20 07:41] LABS: Troponin I 0.07 ng/mL (< 0.04)
[2019-09-20] MEDS ORDERED: Aspirin 81 MG TAB.CHEW PO ONE (07:43)
[2019-09-20] MEDS ORDERED: Ondansetron 4 MG/2 ML VIAL IVP PRN (09:25)
[2019-09-20] MEDS ORDERED: Naloxone 0.4 MG/ML INJ IVP PRN (09:25)
[2019-09-20] MEDS ORDERED: Renal Vitamin 1 CAP CAPSULE PO SCH (10:00)
[2019-09-20] MEDS: carvediloL 6.25 MG TABLET PO SCH ×2 (10:16→19:36)
[2019-09-20] MEDS: hydrALAZINE 25 MG TABLET PO SCH ×3 (12:22→20:29)
[2019-09-20] MEDS ORDERED: Isosorbide MONOnitrate (24 HR) 30 MG TAB.ER.24H PO SCH (14:00)
[2019-09-20] MEDS ORDERED: Spironolactone 25 MG TABLET PO SCH (14:00)
[2019-09-20] MEDS: *HR* LORazepam 0.5 MG TABLET PO SCH ×2 (14:05→20:29)
[2019-09-20] MEDS ORDERED: *HR* LORazepam 1 MG TABLET PO PRN (14:22)
[2019-09-20] MEDS ORDERED: hydrOXYzine pamoate 25 MG CAPSULE PO PRN (14:23)
[2019-09-20 15:00] LABS: Bilirubin,Urine Negative (Negative); Blood,Urine Negative (Negative); Clarity,Urine Cloudy (Clear); Color,Urine Yellow (Yellow); Glucose,Urine (UA) Normal (Normal); Ketones,Urine Negative (Negative); Leukocyte Esterase,Urine Moderate (Negative); Nitrite,Urine Negative (Negative); Protein,Urine 30 mg/dL (Neg-Trace); Specific Gravity,Urine 1.011 (1.010-1.025); Urobilinogen,Urine Normal (Normal)
[2019-09-20 15:05] LABS: Bacteria,Urine None Seen per hpf (None-Few); Hyaline Casts,Urine None Seen per lpf (None-Few); RBC,Urine 0-3 per hpf (0-3); Squamous Epithelial Cell,Urine Many per lpf (None-Few); WBC,Urine 15-30 per hpf (0-3)
[2019-09-20] MEDS ORDERED: 0.9 % Sodium Chloride 250 ML IVC PRN (15:05)
[2019-09-20] MEDS ORDERED: *HR* Heparin 10,000 UNIT/10 ML VIAL IV PRN (15:05)
[2019-09-20] MEDS ORDERED: 0.9 % Sodium Chloride 1,000 ML PRIME SCH (15:15)
[2019-09-20] MEDS: Budesonide Neb 0.25 MG/2 ML IH SCH (20:12)
[2019-09-20] MEDS: Apixaban 2.5 MG TABLET PO SCH (20:29)
[2019-09-21] MEDS: Miconazole 2% ointment 141 APPL/141 GM TUBE TP SCH ×2 (00:22→07:59)
[2019-09-21 02:57] LABS: Basophils # 0.1 K/mcL (0.0-0.2); Basophils % 0.9 %; Eosinophils # 0.3 K/mcL (0.0-0.6); Eosinophils % 2.6 %; Hemoglobin 12.3 g/dL (11.5-15.4); Lymphocytes # 1.4 K/mcL (0.6-4.6); Lymphocytes % 13.4 %; Mean Corpuscular HGB Conc 32.4 g/dL (31.6-35.5); Mean Corpuscular Volume 89.6 fL (83.0-100.0); Mean Platelet Volume 9.3 fL (9.4-12.4); Monocytes # 0.7 K/mcL (0.0-1.3); Monocytes % 6.1 %; Neutrophils # 7.9 K/mcL (1.6-8.9); Platelet Count 285 K/mcL (140-400); Red Blood Count 4.24 M/mcL (3.82-4.97); Red Cell Distribution Width 15.8 % (11.5-14.5); White Blood Count 10.6 K/mcL (4.3-11.1)
[2019-09-21 03:19] LABS: Calcium 7.8 mg/dL (8.6-10.3); Potassium 4.3 mEq/L (3.5-5.1)
[2019-09-21] MEDS: carvediloL 6.25 MG TABLET PO SCH (04:57)
[2019-09-21] MEDS: hydrALAZINE 25 MG TABLET PO SCH (07:27)
[2019-09-21] MEDS: Apixaban 2.5 MG TABLET PO SCH (07:59)
[2019-09-21] MEDS ORDERED: Loratadine 10 MG TABLET PO SCH (09:00)
[2019-09-21] MEDS ORDERED: *HR* LORazepam 0.5 MG TABLET PO SCH (09:00)
[2019-09-21] MEDS ORDERED: Furosemide 40 MG TABLET PO SCH (09:00)
[2019-09-21] MEDS: Budesonide Neb 0.25 MG/2 ML IH SCH (10:38)
[2019-09-21 12:01] VITALS: BP 117/71
== END 2019-09-21 11:57 | disposition home or self-care (01) ==
LOC: 2ANU 06:15 → EMEROOARM 06:15 → 2ANU 10:31
PROVIDERS: ADMIT Internal Medicine; ATTEND Internal Medicine

== ENCOUNTER 2019-09-25 06:02 | Inpatient (IN) ==
[2019-09-25] MEDS ORDERED: Ipratropium/Albuterol Neb 3 ML IH ONE (06:10)
[2019-09-25] MEDS ORDERED: methylPREDNISolone 125 MG/2 ML VIAL IVP ONE (06:10)
[2019-09-25] MEDS ORDERED: Furosemide 40 MG/4 ML VIAL IVP ONE (06:52)
[2019-09-25 07:02] LABS: Hematocrit 39.3 % (35.3-44.9); Hemoglobin 12.2 g/dL (11.5-15.4); Lymphocytes # 2.1 K/mcL (0.6-4.6); Mean Corpuscular Hemoglobin 27.8 pg (28.0-33.3); Mean Corpuscular Volume 89.5 fL (83.0-100.0); Mean Platelet Volume 9.4 fL (9.4-12.4); Platelet Count 362 K/mcL (140-400); Red Blood Count 4.39 M/mcL (3.82-4.97); Red Cell Distribution Width 15.5 % (11.5-14.5); White Blood Count 10.5 K/mcL (4.3-11.1)
[2019-09-25 07:06] LABS: VBG HCO3 21 mEq/L (21-27); VBG PCO2 43 mmHg (41-51); VBG PO2 167 mmHg (25-50)
[2019-09-25 07:27] LABS: Eosinophils # 0.4 K/mcL (0.0-0.6); Neutrophils # 7.8 K/mcL (1.6-8.9); Platelet Estimate Normal (Normal)
[2019-09-25 07:34] LABS: Albumin 3.7 g/dL (3.5-5.7); Albumin/Globulin Ratio 1.3 (1.1-2.2); Bilirubin,Direct 0.1 mg/dL (0.0-0.2); Bilirubin,Indirect 0.2 mg/dL (0.0-1.0); Bilirubin,Total 0.3 mg/dL (0.3-1.0); Calcium 8.5 mg/dL (8.6-10.3); Globulin 2.8 g/dL (2.4-3.5); Potassium 5.1 mEq/L (3.5-5.1); Total Protein 6.5 g/dL (6.4-8.9); Troponin I 0.04 ng/mL (< 0.04)
[2019-09-25 07:45] LABS: Activated Partial Thrombo Time 32.4 Seconds (26.0-36.0); INR 1.1; Prothrombin Time 12.2 Seconds (9.4-12.1)
[2019-09-25] MEDS ORDERED: Naloxone 0.4 MG/ML INJ IVP PRN (09:40)
[2019-09-25] MEDS ORDERED: Ondansetron 4 MG/2 ML VIAL IVP PRN (09:40)
[2019-09-25] MEDS ORDERED: Ipratropium/Albuterol Neb 3 ML IH PRN (09:54)
[2019-09-25] MEDS ORDERED: 0.9 % Sodium Chloride 250 ML IVC PRN (10:16)
[2019-09-25] MEDS ORDERED: *HR* Heparin 10,000 UNIT/10 ML VIAL IV PRN (10:16)
[2019-09-25] MEDS ORDERED: 0.9 % Sodium Chloride 1,000 ML PRIME SCH (10:30)
[2019-09-25] MEDS ORDERED: 0.9 % Sodium Chloride 1,000 ML ONE (10:32)
[2019-09-25] MEDS ORDERED: cloNIDine HCL 0.1 MG TABLET PO PRN (16:54)
[2019-09-25] MEDS: hydrALAZINE 25 MG TABLET PO SCH ×2 (18:58→21:45)
[2019-09-25] MEDS: carvediloL 6.25 MG TABLET PO SCH (19:03)
[2019-09-25] MEDS: *HR* LORazepam 0.5 MG TABLET PO SCH (21:44)
[2019-09-25] MEDS: Apixaban 5 MG TABLET PO SCH (21:45)
[2019-09-25] MEDS: Budesonide Neb 0.25 MG/2 ML IH SCH (22:17)
[2019-09-26 06:00] LABS: Basophils # 0.1 K/mcL (0.0-0.2); Basophils % 0.6 %; Eosinophils % 0.2 %; Hematocrit 35.9 % (35.3-44.9); Hemoglobin 11.6 g/dL (11.5-15.4); Immature Granulocytes % 2.8 % (0-4); Lymphocytes # 1.9 K/mcL (0.6-4.6); Mean Corpuscular HGB Conc 32.3 g/dL (31.6-35.5); Mean Corpuscular Hemoglobin 28.6 pg (28.0-33.3); Mean Corpuscular Volume 88.4 fL (83.0-100.0); Mean Platelet Volume 9.5 fL (9.4-12.4); Monocytes # 0.9 K/mcL (0.0-1.3); Monocytes % 6.6 %; Platelet Count 279 K/mcL (140-400); Red Blood Count 4.06 M/mcL (3.82-4.97); Red Cell Distribution Width 15.6 % (11.5-14.5); Segmented Neutrophils % 75.8 %; White Blood Count 13.2 K/mcL (4.3-11.1)
[2019-09-26 06:17] LABS: Calcium 8.7 mg/dL (8.6-10.3); Magnesium 1.4 mg/dL (1.6-2.6); Potassium 4.5 mEq/L (3.5-5.1)
[2019-09-26] MEDS ORDERED: *HR* LORazepam 0.5 MG TABLET PO SCH (09:00)
[2019-09-26] MEDS ORDERED: Furosemide 40 MG TABLET PO SCH ×2 (09:00→10:17)
[2019-09-26] MEDS: hydrALAZINE 25 MG TABLET PO SCH ×4 (09:13→21:17)
[2019-09-26] MEDS: Isosorbide MONOnitrate (24 HR) 30 MG TAB.ER.24H PO SCH (09:14)
[2019-09-26] MEDS: Apixaban 5 MG TABLET PO SCH ×2 (09:14→21:17)
[2019-09-26] MEDS: carvediloL 6.25 MG TABLET PO SCH ×2 (09:14→16:31)
[2019-09-26] MEDS: *HR* LORazepam 0.5 MG TABLET PO SCH ×3 (09:24→21:17)
[2019-09-26] MEDS ORDERED: Furosemide 40 MG TABLET PO ONE (10:30)
[2019-09-26] MEDS: Budesonide Neb 0.25 MG/2 ML IH SCH ×2 (10:33→21:44)
[2019-09-26] MEDS ORDERED: levoFLOXacin 750 MG/150 ML 750 MG/150 ML BAG IVPB ONE (12:40)
[2019-09-26] MEDS ORDERED: Isosorbide MONOnitrate (24 HR) 30 MG TAB.ER.24H PO SCH (14:00)
[2019-09-26] MEDS: predniSONE 10 MG TABLET PO SCH (14:25)
[2019-09-26] MEDS: Spironolactone 25 MG TABLET PO SCH (14:25)
[2019-09-26] MEDS: Piperacillin/Tazobactam 3.375 GM in 0.9 % Sodium Chloride Mini Bag 100 ML IVPB SCH (16:25)
[2019-09-27] MEDS: Piperacillin/Tazobactam 3.375 GM in 0.9 % Sodium Chloride Mini Bag 100 ML IVPB SCH (01:07)
[2019-09-27] MEDS ORDERED: carvediloL 6.25 MG TABLET PO SCH (08:00)
[2019-09-27] MEDS ORDERED: 0.9 % Sodium Chloride 250 ML IVC PRN (08:34)
[2019-09-27] MEDS ORDERED: *HR* Heparin 10,000 UNIT/10 ML VIAL IV PRN (08:34)
[2019-09-27] MEDS: *HR* LORazepam 0.5 MG TABLET PO SCH ×3 (08:44→21:31)
[2019-09-27] MEDS: Apixaban 5 MG TABLET PO SCH ×2 (08:44→21:32)
[2019-09-27] MEDS: Isosorbide MONOnitrate (24 HR) 30 MG TAB.ER.24H PO SCH (08:51)
[2019-09-27] MEDS: hydrALAZINE 25 MG TABLET PO SCH ×3 (08:51→21:32)
[2019-09-27] MEDS: Furosemide 40 MG TABLET PO SCH (10:20)
[2019-09-27] MEDS: Budesonide Neb 0.25 MG/2 ML IH SCH ×2 (11:00→20:43)
[2019-09-27 11:06] LABS: Hematocrit 41.4 % (35.3-44.9); Mean Corpuscular HGB Conc 31.9 g/dL (31.6-35.5); Mean Corpuscular Hemoglobin 28.1 pg (28.0-33.3); Mean Corpuscular Volume 88.3 fL (83.0-100.0); Mean Platelet Volume 8.9 fL (9.4-12.4); Platelet Count 333 K/mcL (140-400); Red Blood Count 4.69 M/mcL (3.82-4.97); Red Cell Distribution Width 15.7 % (11.5-14.5); White Blood Count 13.5 K/mcL (4.3-11.1)
[2019-09-27 11:10] LABS: Hemoglobin 13.2 g/dL (11.5-15.4)
[2019-09-27 11:35] LABS: Calcium 8.9 mg/dL (8.6-10.3); Magnesium 1.8 mg/dL (1.6-2.6); Phosphorous 1.7 mg/dL (2.7-4.5); Potassium 3.1 mEq/L (3.5-5.1)
[2019-09-27] MEDS: predniSONE 10 MG TABLET PO SCH (15:19)
[2019-09-27] MEDS: Spironolactone 25 MG TABLET PO SCH (15:19)
[2019-09-27] MEDS: carvediloL 6.25 MG TABLET PO SCH (17:15)
[2019-09-28 05:53] LABS: Hematocrit 38.3 % (35.3-44.9); Hemoglobin 12.2 g/dL (11.5-15.4); Mean Corpuscular HGB Conc 31.9 g/dL (31.6-35.5); Mean Corpuscular Hemoglobin 28.6 pg (28.0-33.3); Mean Corpuscular Volume 89.9 fL (83.0-100.0); Mean Platelet Volume 9.4 fL (9.4-12.4); Platelet Count 328 K/mcL (140-400); Red Blood Count 4.26 M/mcL (3.82-4.97); Red Cell Distribution Width 15.8 % (11.5-14.5); White Blood Count 11.8 K/mcL (4.3-11.1)
[2019-09-28 06:05] LABS: Potassium 4.5 mEq/L (3.5-5.1)
[2019-09-28 07:24] VITALS: BP 158/86
[2019-09-28 08:57] LABS: Troponin I 0.07 ng/mL (< 0.04)
[2019-09-28] MEDS ORDERED: levoFLOXacin 500 MG/100 ML 500 MG/100 ML BAG IVPB SCH (09:00)
[2019-09-28] MEDS: Apixaban 5 MG TABLET PO SCH (09:40)
[2019-09-28] MEDS: *HR* LORazepam 0.5 MG TABLET PO SCH (09:41)
[2019-09-28] MEDS: Furosemide 40 MG TABLET PO SCH (09:41)
[2019-09-28] MEDS: carvediloL 6.25 MG TABLET PO SCH (09:42)
[2019-09-28] MEDS: hydrALAZINE 25 MG TABLET PO SCH (09:42)
[2019-09-28] MEDS: Isosorbide MONOnitrate (24 HR) 30 MG TAB.ER.24H PO SCH (09:42)
== END 2019-09-28 10:01 | disposition home health service (06) | DRG 291 ==
LOC: CDU 06:02 → EMEROOARM 06:02 → SUATTDRO 09:25 → CDU 10:25 → 2ANU 15:26
PROVIDERS: ADMIT Internal Medicine; ATTEND Family Medicine

== ENCOUNTER 2019-10-11 05:48 | Inpatient (IN) ==
[2019-10-11] MEDS ORDERED: Ipratropium/Albuterol Neb 3 ML IH ONE (05:56)
[2019-10-11] MEDS ORDERED: Ipratropium/Albuterol Neb 3 ML ONE (05:57)
[2019-10-11] MEDS ORDERED: Nitroglycerin 0.4 MG TAB.SUBL SL ONE (06:00)
[2019-10-11 06:19] LABS: Basophils # 0.1 K/mcL (0.0-0.2); Basophils % 0.8 %; Eosinophils # 0.2 K/mcL (0.0-0.6); Hematocrit 42.2 % (35.3-44.9); Hemoglobin 12.6 g/dL (11.5-15.4); Immature Granulocytes % 3.3 % (0-4); Lymphocytes % 22.3 %; Mean Corpuscular HGB Conc 29.9 g/dL (31.6-35.5); Mean Corpuscular Hemoglobin 28.3 pg (28.0-33.3); Mean Corpuscular Volume 94.6 fL (83.0-100.0); Mean Platelet Volume 9.1 fL (9.4-12.4); Monocytes # 1.2 K/mcL (0.0-1.3); Monocytes % 6.6 %; Platelet Count 429 K/mcL (140-400); Red Blood Count 4.46 M/mcL (3.82-4.97); Red Cell Distribution Width 19.2 % (11.5-14.5); White Blood Count 18.1 K/mcL (4.3-11.1)
[2019-10-11 06:27] LABS: VBG HCO3 24 mEq/L (21-27); VBG PCO2 64 mmHg (41-51); VBG PH 7.18 pH Units (7.32-7.42); VBG PO2 76 mmHg (25-50)
[2019-10-11 06:42] LABS: Calcium 8.9 mg/dL (8.6-10.3); Potassium 6.1 mEq/L (3.5-5.1)
[2019-10-11] MEDS ORDERED: methylPREDNISolone 125 MG/2 ML VIAL IVP ONE (06:43)
[2019-10-11] MEDS ORDERED: 0.9 % Sodium Chloride 250 ML IVC PRN (07:10)
[2019-10-11] MEDS ORDERED: *HR* Heparin 10,000 UNIT/10 ML VIAL IV PRN (07:10)
[2019-10-11] MEDS ORDERED: 0.9 % Sodium Chloride 1,000 ML PRIME SCH (07:15)
[2019-10-11] MEDS ORDERED: CefTRIAXone 1,000 MG VIAL ONE (09:36)
[2019-10-11] MEDS ORDERED: Azithromycin 500 MG VIAL ONE (09:36)
[2019-10-11] MEDS ORDERED: 0.9 % Sodium Chloride 250 ML ONE (09:43)
[2019-10-11] MEDS ORDERED: Furosemide 40 MG TABLET PO ONE (10:29)
[2019-10-11] MEDS ORDERED: Isosorbide MONOnitrate (24 HR) 30 MG TAB.ER.24H PO ONE (10:29)
[2019-10-11] MEDS ORDERED: predniSONE 10 MG TABLET ONE (10:30)
[2019-10-11] MEDS ORDERED: Spironolactone 25 MG TABLET ONE (10:30)
[2019-10-11] MEDS ORDERED: hydrALAZINE 25 MG TABLET ONE (10:30)
[2019-10-11] MEDS ORDERED: Apixaban 2.5 MG TABLET ONE (10:31)
[2019-10-11] MEDS ORDERED: carvediloL 6.25 MG TABLET ONE (10:53)
[2019-10-11] MEDS: Ipratropium/Albuterol Neb 3 ML IH PRN ×2 (15:58→23:33)
[2019-10-11] MEDS ORDERED: *HR* Metoprolol 5 MG/5 ML VIAL IVP ONE ×2 (16:03→18:58)
[2019-10-11] MEDS: Apixaban 2.5 MG TABLET PO SCH (21:32)
[2019-10-11] MEDS: hydrALAZINE 25 MG TABLET PO SCH (21:32)
[2019-10-11] MEDS: *HR* LORazepam 0.5 MG TABLET PO SCH (21:32)
[2019-10-11] MEDS: carvediloL 6.25 MG TABLET PO SCH (21:32)
[2019-10-12] MEDS ORDERED: *HR* Metoprolol 5 MG/5 ML VIAL IVP ONE (01:36)
[2019-10-12 02:29] LABS: Hematocrit 37.2 % (35.3-44.9); Hemoglobin 11.3 g/dL (11.5-15.4); Mean Corpuscular HGB Conc 30.4 g/dL (31.6-35.5); Mean Corpuscular Volume 92.1 fL (83.0-100.0); Mean Platelet Volume 9.6 fL (9.4-12.4); Platelet Count 297 K/mcL (140-400); Red Blood Count 4.04 M/mcL (3.82-4.97); White Blood Count 12.4 K/mcL (4.3-11.1)
[2019-10-12] MEDS: *HR* LORazepam 0.5 MG TABLET PO PRN ×3 (05:59→23:15)
[2019-10-12 08:52] LABS: Calcium 8.4 mg/dL (8.6-10.3); Potassium 4.9 mEq/L (3.5-5.1)
[2019-10-12] MEDS: Azithromycin 500 MG in 0.9 % Sodium Chloride 250 ML IVPB SCH (08:55)
[2019-10-12] MEDS: carvediloL 6.25 MG TABLET PO SCH ×2 (08:56→20:05)
[2019-10-12] MEDS: predniSONE 10 MG TABLET PO SCH (08:56)
[2019-10-12] MEDS: Apixaban 2.5 MG TABLET PO SCH ×2 (08:56→20:04)
[2019-10-12] MEDS: Furosemide 40 MG TABLET PO SCH (08:56)
[2019-10-12] MEDS: Isosorbide MONOnitrate (24 HR) 30 MG TAB.ER.24H PO SCH (08:57)
[2019-10-12] MEDS: hydrALAZINE 25 MG TABLET PO SCH ×3 (08:57→20:05)
[2019-10-12] MEDS ORDERED: Spironolactone 25 MG TABLET PO SCH (09:00)
[2019-10-12] MEDS ORDERED: Water for inj. (sterile) 20 ML IV ONE (09:06)
[2019-10-12] MEDS: cefTRIAXone 1,000 MG in Water for inj. (sterile) 10 ML IVP SCH (09:20)
[2019-10-12] MEDS: Renal Vitamin 1 CAP CAPSULE PO SCH (12:25)
[2019-10-12] MEDS ORDERED: hydrALAZINE 25 MG TABLET PO ONE (17:06)
[2019-10-12] MEDS: Spironolactone 25 MG TABLET PO SCH (18:56)
[2019-10-12] MEDS: *HR* LORazepam 0.5 MG TABLET PO SCH (20:05)
[2019-10-12] MEDS ORDERED: *HR* Labetalol 20 MG/4 ML SYRINGE IVP ONE (23:07)
[2019-10-12] MEDS ORDERED: NIFEdipine 10 MG CAPSULE PO ONE (23:44)
[2019-10-12] MEDS ORDERED: Nitroglycerin 0.4 MG TAB.SUBL SL PRN (23:52)
[2019-10-12] MEDS ORDERED: Nitroglycerin 0.4 MG TAB.SUBL SL ONE (23:53)
[2019-10-13] MEDS: Levalbuterol Neb 1.25 MG/3 ML IH SCH ×7 (00:27→23:49)
[2019-10-13] MEDS ORDERED: Furosemide 40 MG/4 ML VIAL IVP ONE (03:11)
[2019-10-13] MEDS ORDERED: *HR* Labetalol 20 MG/4 ML SYRINGE IVP ONE (03:15)
[2019-10-13] MEDS ORDERED: Prochlorperazine 10 MG/2 ML VIAL IVP PRN (04:11)
[2019-10-13] MEDS ORDERED: Morphine Sulfate 2 MG/ML SYRINGE IVP ONE ×2 (04:15→04:28)
[2019-10-13] MEDS ORDERED: *HR* LORazepam 2 MG/ML VIAL IVP ONE (05:10)
[2019-10-13 05:45] LABS: Basophils # 0.1 K/mcL (0.0-0.2); Basophils % 0.3 %; Eosinophils # 0.1 K/mcL (0.0-0.6); Eosinophils % 0.4 %; Hematocrit 39.3 % (35.3-44.9); Hemoglobin 12.1 g/dL (11.5-15.4); Immature Granulocytes % 1.4 % (0-4); Lymphocytes # 1.8 K/mcL (0.6-4.6); Lymphocytes % 8.9 %; Mean Corpuscular HGB Conc 30.8 g/dL (31.6-35.5); Mean Corpuscular Hemoglobin 28.1 pg (28.0-33.3); Mean Corpuscular Volume 91.2 fL (83.0-100.0); Mean Platelet Volume 9.5 fL (9.4-12.4); Monocytes # 1.3 K/mcL (0.0-1.3); Monocytes % 6.7 %; Neutrophils # 16.5 K/mcL (1.6-8.9); Nucleated Red Blood Cells 0.1 /100 WBC (0); Platelet Count 304 K/mcL (140-400); Red Blood Count 4.31 M/mcL (3.82-4.97); Red Cell Distribution Width 18.7 % (11.5-14.5); Segmented Neutrophils % 82.3 %
[2019-10-13 05:57] LABS: Calcium 8.2 mg/dL (8.6-10.3); Potassium 5.1 mEq/L (3.5-5.1)
[2019-10-13] MEDS ORDERED: 0.9 % Sodium Chloride 250 ML IVC PRN (08:08)
[2019-10-13] MEDS: Furosemide 40 MG TABLET PO SCH (08:36)
[2019-10-13] MEDS: Apixaban 2.5 MG TABLET PO SCH ×2 (08:36→20:06)
[2019-10-13] MEDS: Spironolactone 25 MG TABLET PO SCH ×2 (08:36→20:06)
[2019-10-13] MEDS: Renal Vitamin 1 CAP CAPSULE PO SCH (08:36)
[2019-10-13] MEDS: carvediloL 6.25 MG TABLET PO SCH ×2 (08:36→20:06)
[2019-10-13] MEDS: cefTRIAXone 1,000 MG in Water for inj. (sterile) 10 ML IVP SCH (08:37)
[2019-10-13] MEDS: predniSONE 10 MG TABLET PO SCH (08:37)
[2019-10-13] MEDS: Azithromycin 500 MG in 0.9 % Sodium Chloride 250 ML IVPB SCH (08:37)
[2019-10-13] MEDS: Isosorbide MONOnitrate (24 HR) 30 MG TAB.ER.24H PO SCH (08:41)
[2019-10-13] MEDS ORDERED: CloNIDine Patch 0.2 MG PATCH (WEEKLY) TD SCH (14:00)
[2019-10-13] MEDS: *HR* Metoprolol 5 MG/5 ML VIAL IVP PRN ×2 (15:40→23:40)
[2019-10-13] MEDS: *HR* LORazepam 0.5 MG TABLET PO SCH (20:06)
[2019-10-14] MEDS: Levalbuterol Neb 1.25 MG/3 ML IH SCH ×5 (03:36→20:28)
[2019-10-14 05:48] LABS: Basophils % 0.5 %; Eosinophils # 0.2 K/mcL (0.0-0.6); Eosinophils % 1.9 %; Hematocrit 41.5 % (35.3-44.9); Hemoglobin 12.7 g/dL (11.5-15.4); Immature Granulocytes % 1.1 % (0-4); Lymphocytes # 1.9 K/mcL (0.6-4.6); Lymphocytes % 21.1 %; Mean Corpuscular HGB Conc 30.6 g/dL (31.6-35.5); Mean Corpuscular Hemoglobin 28.3 pg (28.0-33.3); Mean Corpuscular Volume 92.6 fL (83.0-100.0); Mean Platelet Volume 9.4 fL (9.4-12.4); Monocytes # 0.6 K/mcL (0.0-1.3); Monocytes % 6.8 %; Platelet Count 250 K/mcL (140-400); Red Blood Count 4.48 M/mcL (3.82-4.97); Red Cell Distribution Width 18.7 % (11.5-14.5); Segmented Neutrophils % 68.6 %
[2019-10-14 05:53] LABS: White Blood Count 8.8 K/mcL (4.3-11.1)
[2019-10-14 06:03] LABS: Calcium 8.3 mg/dL (8.6-10.3); Potassium 4.9 mEq/L (3.5-5.1)
[2019-10-14] MEDS ORDERED: *HR* Heparin 10,000 UNIT/10 ML VIAL IV PRN (07:43)
[2019-10-14] MEDS ORDERED: 0.9 % Sodium Chloride 250 ML IVC PRN (07:43)
[2019-10-14] MEDS ORDERED: 0.9 % Sodium Chloride 1,000 ML PRIME SCH (07:45)
[2019-10-14] MEDS: carvediloL 6.25 MG TABLET PO SCH ×2 (08:14→20:34)
[2019-10-14] MEDS: Renal Vitamin 1 CAP CAPSULE PO SCH (08:14)
[2019-10-14] MEDS: Furosemide 40 MG TABLET PO SCH (08:15)
[2019-10-14] MEDS: Isosorbide MONOnitrate (24 HR) 30 MG TAB.ER.24H PO SCH (08:15)
[2019-10-14] MEDS: cefTRIAXone 1,000 MG in Water for inj. (sterile) 10 ML IVP SCH (08:15)
[2019-10-14] MEDS: Spironolactone 25 MG TABLET PO SCH ×2 (08:15→20:34)
[2019-10-14] MEDS: Azithromycin 500 MG in 0.9 % Sodium Chloride 250 ML IVPB SCH (08:15)
[2019-10-14] MEDS: Apixaban 2.5 MG TABLET PO SCH ×2 (08:15→20:34)
[2019-10-14] MEDS: predniSONE 10 MG TABLET PO SCH (08:15)
[2019-10-14] MEDS: *HR* LORazepam 0.5 MG TABLET PO PRN (18:18)
[2019-10-14] MEDS: *HR* LORazepam 0.5 MG TABLET PO SCH (20:34)
[2019-10-14] MEDS ORDERED: *HR* Labetalol 20 MG/4 ML SYRINGE IVP ONE (22:39)
[2019-10-15] MEDS: Levalbuterol Neb 1.25 MG/3 ML IH SCH ×4 (00:06→11:19)
[2019-10-15 02:26] LABS: Basophils % 0.4 %; Eosinophils # 0.3 K/mcL (0.0-0.6); Eosinophils % 3.1 %; Hematocrit 36.1 % (35.3-44.9); Immature Granulocytes % 1.2 % (0-4); Lymphocytes # 1.9 K/mcL (0.6-4.6); Lymphocytes % 19.3 %; Mean Corpuscular HGB Conc 30.5 g/dL (31.6-35.5); Mean Corpuscular Hemoglobin 28.1 pg (28.0-33.3); Mean Corpuscular Volume 92.3 fL (83.0-100.0); Mean Platelet Volume 9.5 fL (9.4-12.4); Monocytes % 9.8 %; Neutrophils # 6.5 K/mcL (1.6-8.9); Platelet Count 255 K/mcL (140-400); Red Blood Count 3.91 M/mcL (3.82-4.97); Red Cell Distribution Width 18.3 % (11.5-14.5); Segmented Neutrophils % 66.2 %; White Blood Count 9.9 K/mcL (4.3-11.1)
[2019-10-15 02:44] LABS: Potassium 4.1 mEq/L (3.5-5.1)
[2019-10-15 07:12] VITALS: BP 178/88
[2019-10-15] MEDS: Renal Vitamin 1 CAP CAPSULE PO SCH (09:27)
[2019-10-15] MEDS: Spironolactone 25 MG TABLET PO SCH (09:27)
[2019-10-15] MEDS: Isosorbide MONOnitrate (24 HR) 30 MG TAB.ER.24H PO SCH (09:27)
[2019-10-15] MEDS: carvediloL 6.25 MG TABLET PO SCH (09:27)
[2019-10-15] MEDS: Apixaban 2.5 MG TABLET PO SCH (09:27)
[2019-10-15] MEDS: predniSONE 10 MG TABLET PO SCH (09:27)
[2019-10-15] MEDS: cefTRIAXone 1,000 MG in Water for inj. (sterile) 10 ML IVP SCH (09:27)
[2019-10-15] MEDS: Furosemide 40 MG TABLET PO SCH (09:27)
[2019-10-15] MEDS: Azithromycin 500 MG in 0.9 % Sodium Chloride 250 ML IVPB SCH (09:28)
[2019-10-15 11:27] LABS: Calcium 7.8 mg/dL (8.6-10.3); Potassium 3.3 mEq/L (3.5-5.1)
== END 2019-10-15 11:52 | disposition home or self-care (01) | DRG 291 ==
LOC: 2NNU 05:48 → EMEROOARM 05:48 → 2NNU 08:00 → SUATTDRO 18:29 → 2ANU 10-14 14:23
PROVIDERS: ADMIT Internal Medicine; ATTEND Internal Medicine

== ENCOUNTER 2019-10-25 04:58 | Inpatient (IN) ==
[2019-10-25] MEDS ORDERED: methylPREDNISolone 125 MG/2 ML VIAL IVP ONE (05:12)
[2019-10-25] MEDS ORDERED: Ipratropium/Albuterol Neb 3 ML IH ONE (05:12)
[2019-10-25] MEDS ORDERED: DilTIAZem 50 MG in 0.9 % Sodium Chloride 40 ML IVC ONE (05:12)
[2019-10-25] MEDS ORDERED: Ipratropium/Albuterol Neb 3 ML ONE (05:27)
[2019-10-25 05:57] LABS: Basophils % 0.3 %; Eosinophils % 0.1 %; Hematocrit 38.9 % (35.3-44.9); Hemoglobin 11.6 g/dL (11.5-15.4); Immature Granulocytes % 1.3 % (0-4); Lymphocytes # 2.6 K/mcL (0.6-4.6); Lymphocytes % 16.5 %; Mean Corpuscular HGB Conc 29.8 g/dL (31.6-35.5); Mean Corpuscular Hemoglobin 28.5 pg (28.0-33.3); Mean Corpuscular Volume 95.6 fL (83.0-100.0); Mean Platelet Volume 9.1 fL (9.4-12.4); Monocytes # 0.7 K/mcL (0.0-1.3); Monocytes % 4.3 %; Nucleated Red Blood Cells 0.1 /100 WBC (0); Platelet Count 282 K/mcL (140-400); Red Blood Count 4.07 M/mcL (3.82-4.97); Red Cell Distribution Width 18.4 % (11.5-14.5); Segmented Neutrophils % 77.5 %
[2019-10-25 05:58] LABS: VBG HCO3 21 mEq/L (21-27); VBG PCO2 55 mmHg (41-51); VBG PO2 92 mmHg (25-50)
[2019-10-25 05:59] LABS: Basophils # 0.1 K/mcL (0.0-0.2); Neutrophils # 12.3 K/mcL (1.6-8.9); White Blood Count 15.8 K/mcL (4.3-11.1)
[2019-10-25] MEDS ORDERED: *HR* LORazepam 2 MG/ML VIAL IVP ONE (06:06)
[2019-10-25 06:27] LABS: Calcium 8.3 mg/dL (8.6-10.3); Potassium 5.6 mEq/L (3.5-5.1); Troponin I 0.07 ng/mL (< 0.04)
[2019-10-25] MEDS ORDERED: Furosemide 40 MG/4 ML VIAL IVP ONE (06:52)
[2019-10-25] MEDS ORDERED: *HR* Promethazine 25 MG/ML VIAL IVP PRN (07:30)
[2019-10-25] MEDS ORDERED: Ondansetron ODT 4 MG TAB.RAPDIS SL PRN (07:30)
[2019-10-25] MEDS ORDERED: Naloxone 0.4 MG/ML INJ IVP PRN (07:30)
[2019-10-25] MEDS ORDERED: Albuterol 2.5 MG/3 ML NEBULIZER IH PRN (07:37)
[2019-10-25] MEDS ORDERED: 0.9 % Sodium Chloride 250 ML IVC PRN (08:53)
[2019-10-25] MEDS ORDERED: 0.9 % Sodium Chloride 1,000 ML PRIME SCH (09:00)
[2019-10-25] MEDS: Budesonide Neb 0.5 MG/2 ML IH SCH ×2 (09:07→19:19)
[2019-10-25] MEDS: Ipratropium/Albuterol Neb 3 ML IH SCH ×5 (09:07→23:09)
[2019-10-25 11:56] LABS: VBG HCO3 24 mEq/L (21-27); VBG PCO2 48 mmHg (41-51); VBG PH 7.31 pH Units (7.32-7.42); VBG PO2 98 mmHg (25-50)
[2019-10-25] MEDS ORDERED: *HR* Heparin 10,000 UNIT/10 ML VIAL IV PRN (12:56)
[2019-10-25] MEDS: hydrALAZINE 25 MG TABLET PO SCH ×4 (15:10→20:04)
[2019-10-25] MEDS: carvediloL 6.25 MG TABLET PO SCH ×2 (15:19→20:04)
[2019-10-25] MEDS: Azithromycin 250 MG TABLET PO SCH (15:20)
[2019-10-25] MEDS: predniSONE 20 MG TABLET PO SCH (15:20)
[2019-10-25] MEDS: Vitamin B Complex/Vit C/Vit E 1 EACH TABLET PO SCH (15:20)
[2019-10-25] MEDS: Spironolactone 25 MG TABLET PO SCH (15:21)
[2019-10-25] MEDS: Isosorbide MONOnitrate (24 HR) 30 MG TAB.ER.24H PO SCH (15:21)
[2019-10-25] MEDS ORDERED: Cefepime HCl 1,000 MG in Water for inj. (sterile) 10 ML IVP SCH (16:00)
[2019-10-25] MEDS: Apixaban 2.5 MG TABLET PO SCH (20:04)
[2019-10-25] MEDS: *HR* LORazepam 0.5 MG TABLET PO PRN (20:08)
[2019-10-26 00:15] LABS: Bilirubin,Urine Negative (Negative); Blood,Urine Negative (Negative); Clarity,Urine Turbid (Clear); Color,Urine Yellow (Yellow); Glucose,Urine (UA) Normal (Normal); Ketones,Urine Negative (Negative); Leukocyte Esterase,Urine Large (Negative); Nitrite,Urine Negative (Negative); Protein,Urine 100 mg/dL (Neg-Trace); Specific Gravity,Urine 1.013 (1.010-1.025); Urobilinogen,Urine Normal (Normal)
[2019-10-26 00:17] LABS: Bacteria,Urine Few per hpf (None-Few); Hyaline Casts,Urine None Seen per lpf (None-Few); RBC,Urine 0-3 per hpf (0-3); Squamous Epithelial Cell,Urine Many per lpf (None-Few); WBC,Urine TNTC per hpf (0-3)
[2019-10-26 00:28] LABS: Yeast,Urine Moderate per hpf (None Seen)
[2019-10-26 01:55] LABS: Hematocrit 36.6 % (35.3-44.9); Hemoglobin 11.4 g/dL (11.5-15.4); Mean Corpuscular HGB Conc 31.1 g/dL (31.6-35.5); Mean Corpuscular Hemoglobin 29.2 pg (28.0-33.3); Mean Corpuscular Volume 93.8 fL (83.0-100.0); Mean Platelet Volume 9.5 fL (9.4-12.4); Platelet Count 223 K/mcL (140-400); Red Cell Distribution Width 18.1 % (11.5-14.5); White Blood Count 10.9 K/mcL (4.3-11.1)
[2019-10-26 02:14] LABS: Calcium 8.4 mg/dL (8.6-10.3); Magnesium 1.6 mg/dL (1.6-2.6); Potassium 4.7 mEq/L (3.5-5.1)
[2019-10-26] MEDS: Ipratropium/Albuterol Neb 3 ML IH SCH ×6 (03:40→23:30)
[2019-10-26] MEDS: Apixaban 2.5 MG TABLET PO SCH ×2 (04:05→21:32)
[2019-10-26] MEDS: *HR* LORazepam 0.5 MG TABLET PO PRN ×3 (04:06→21:32)
[2019-10-26] MEDS: Budesonide Neb 0.5 MG/2 ML IH SCH ×2 (07:27→19:34)
[2019-10-26] MEDS ORDERED: Furosemide 40 MG TABLET PO SCH (09:00)
[2019-10-26] MEDS: Vitamin B Complex/Vit C/Vit E 1 EACH TABLET PO SCH (09:38)
[2019-10-26] MEDS: predniSONE 20 MG TABLET PO SCH (09:38)
[2019-10-26] MEDS: Azithromycin 250 MG TABLET PO SCH (09:38)
[2019-10-26] MEDS: Isosorbide MONOnitrate (24 HR) 30 MG TAB.ER.24H PO SCH (09:38)
[2019-10-26] MEDS: hydrALAZINE 25 MG TABLET PO SCH ×4 (09:38→21:32)
[2019-10-26] MEDS: carvediloL 6.25 MG TABLET PO SCH ×2 (09:39→21:31)
[2019-10-26] MEDS: Spironolactone 25 MG TABLET PO SCH (09:39)
[2019-10-26] MEDS ORDERED: levoFLOXacin 750 MG TABLET PO SCH (11:45)
[2019-10-26] MEDS ORDERED: Aminoglycoside Consult 1 EACH MC ONE (14:54)
[2019-10-27 01:46] LABS: Hematocrit 31.6 % (35.3-44.9); Mean Corpuscular HGB Conc 31.6 g/dL (31.6-35.5); Mean Corpuscular Hemoglobin 28.6 pg (28.0-33.3); Mean Corpuscular Volume 90.3 fL (83.0-100.0); Mean Platelet Volume 9.1 fL (9.4-12.4); Platelet Count 212 K/mcL (140-400); Red Cell Distribution Width 17.4 % (11.5-14.5); White Blood Count 11.3 K/mcL (4.3-11.1)
[2019-10-27 02:05] LABS: Calcium 7.8 mg/dL (8.6-10.3); Potassium 4.7 mEq/L (3.5-5.1)
[2019-10-27] MEDS: Ipratropium/Albuterol Neb 3 ML IH SCH ×3 (04:01→11:18)
[2019-10-27] MEDS: Apixaban 2.5 MG TABLET PO SCH (04:14)
[2019-10-27] MEDS: *HR* LORazepam 0.5 MG TABLET PO PRN (04:14)
[2019-10-27] MEDS ORDERED: 0.9 % Sodium Chloride 250 ML IVC PRN (07:16)
[2019-10-27] MEDS: Budesonide Neb 0.5 MG/2 ML IH SCH (07:18)
[2019-10-27] MEDS ORDERED: metOLazone 5 MG TABLET PO SCH (09:00)
[2019-10-27] MEDS ORDERED: Torsemide 20 MG TABLET PO SCH (09:00)
[2019-10-27] MEDS ORDERED: *HR* Heparin 10,000 UNIT/10 ML VIAL IV PRN (10:17)
[2019-10-27] MEDS: hydrALAZINE 25 MG TABLET PO SCH ×2 (10:49→12:24)
[2019-10-27] MEDS ORDERED: predniSONE 10 MG TABLET PO SCH (11:00)
[2019-10-27 12:10] VITALS: BP 136/80
[2019-10-27] MEDS: carvediloL 6.25 MG TABLET PO SCH (12:24)
[2019-10-27] MEDS: Vitamin B Complex/Vit C/Vit E 1 EACH TABLET PO SCH (12:24)
[2019-10-27] MEDS: Spironolactone 25 MG TABLET PO SCH (12:24)
[2019-10-27] MEDS: Isosorbide MONOnitrate (24 HR) 30 MG TAB.ER.24H PO SCH (12:24)
[2019-10-27] MEDS ORDERED: CloNIDine Patch 0.2 MG PATCH (WEEKLY) TD SCH (14:00)
== END 2019-10-27 14:55 | disposition home health service (06) | DRG 291 ==
LOC: SUATTDRO → EMEROOARM 04:58 → 2ANU 04:58
PROVIDERS: ADMIT Family Medicine; ATTEND Family Medicine

== ENCOUNTER 2019-12-25 07:23 | Inpatient (IN) ==
[2019-12-25] MEDS ORDERED: Isovue-370 500 ML BOTTLE IVP ONE (07:44)
[2019-12-25 07:58] LABS: Eosinophils # 0.3 K/mcL (0.0-0.6); Hematocrit 43.8 % (35.3-44.9); Hemoglobin 13.2 g/dL (11.5-15.4); Mean Corpuscular HGB Conc 30.1 g/dL (31.6-35.5); Mean Corpuscular Hemoglobin 27.8 pg (28.0-33.3); Mean Corpuscular Volume 92.4 fL (83.0-100.0); Mean Platelet Volume 8.7 fL (9.4-12.4); Platelet Count 511 K/mcL (140-400); Red Blood Count 4.74 M/mcL (3.82-4.97); Red Cell Distribution Width 17.6 % (11.5-14.5); White Blood Count 14.4 K/mcL (4.3-11.1)
[2019-12-25 08:03] LABS: INR 1.1; Prothrombin Time 12.7 Seconds (9.4-12.1)
[2019-12-25 08:05] LABS: Activated Partial Thrombo Time 35.6 Seconds (26.0-36.0)
[2019-12-25 08:20] LABS: Troponin I 0.03 ng/mL (< 0.04)
[2019-12-25 08:25] LABS: Lymphocytes # 3.5 K/mcL (0.6-4.6); Neutrophils # 10.7 K/mcL (1.6-8.9); Platelet Estimate Increased (Normal)
[2019-12-25 08:35] LABS: Albumin 3.8 g/dL (3.5-5.7); Albumin/Globulin Ratio 1.3 (1.1-2.2); Bilirubin,Total 0.4 mg/dL (0.3-1.0); Calcium 8.6 mg/dL (8.6-10.3); Potassium 4.2 mEq/L (3.5-5.1); Total Protein 6.8 g/dL (6.4-8.9)
[2019-12-25] MEDS ORDERED: Piperacillin/Tazobactam 3.375 GM in 0.9 % Sodium Chloride Mini Bag 100 ML IVPB ONE (09:33)
[2019-12-25] MEDS ORDERED: Ondansetron 4 MG/2 ML VIAL IVP PRN (09:38)
[2019-12-25] MEDS ORDERED: Acetaminophen 325 MG TABLET PO PRN (09:38)
[2019-12-25] MEDS ORDERED: levoFLOXacin 750 MG/150 ML 750 MG/150 ML BAG IVPB ONE (09:38)
[2019-12-25] MEDS: Budesonide Neb 0.5 MG/2 ML IH SCH ×2 (11:20→19:39)
[2019-12-25] MEDS: carvediloL 6.25 MG TABLET PO SCH ×2 (12:23→17:34)
[2019-12-25] MEDS: *HR* LORazepam 0.5 MG TABLET PO PRN ×2 (12:23→18:35)
[2019-12-25] MEDS: hydrALAZINE 25 MG TABLET PO SCH ×3 (12:23→20:11)
[2019-12-25] MEDS: predniSONE 10 MG TABLET PO SCH (14:44)
[2019-12-25] MEDS: Apixaban 2.5 MG TABLET PO SCH (20:11)
[2019-12-25] MEDS ORDERED: 0.9 % Sodium Chloride 10 ML PF VIAL IVP ONE (23:48)
[2019-12-26 02:09] LABS: Hematocrit 36.4 % (35.3-44.9); Mean Corpuscular HGB Conc 31.9 g/dL (31.6-35.5); Mean Corpuscular Hemoglobin 28.6 pg (28.0-33.3); Mean Corpuscular Volume 89.9 fL (83.0-100.0); Mean Platelet Volume 8.8 fL (9.4-12.4); Platelet Count 433 K/mcL (140-400); Red Blood Count 4.05 M/mcL (3.82-4.97); Red Cell Distribution Width 17.6 % (11.5-14.5)
[2019-12-26 02:10] LABS: Hemoglobin 11.6 g/dL (11.5-15.4)
[2019-12-26] MEDS ORDERED: *HR* Metoprolol 5 MG/5 ML VIAL IVP ONE ×2 (02:24→04:03)
[2019-12-26 02:34] LABS: Calcium 8.4 mg/dL (8.6-10.3); Magnesium 1.3 mg/dL (1.6-2.6); Phosphorous 4.7 mg/dL (2.7-4.5); Potassium 6.2 mEq/L (3.5-5.1)
[2019-12-26] MEDS ORDERED: *HR* Dextrose 50 % in Water (Syg) 50 ML SYRINGE IVP ONE (04:04)
[2019-12-26] MEDS ORDERED: Insulin Human Regular 10 UNIT in 0.9 % Sodium Chloride 10 ML IV ONE (04:05)
[2019-12-26] MEDS: Apixaban 2.5 MG TABLET PO SCH ×2 (05:34→21:30)
[2019-12-26] MEDS ORDERED: 0.9 % Sodium Chloride 2,000 ML ONE (07:01)
[2019-12-26] MEDS ORDERED: 0.9 % Sodium Chloride 250 ML IVC PRN (07:03)
[2019-12-26] MEDS ORDERED: 0.9 % Sodium Chloride 1,000 ML PRIME SCH (07:15)
[2019-12-26] MEDS: Budesonide Neb 0.5 MG/2 ML IH SCH ×2 (07:21→19:52)
[2019-12-26] MEDS: Torsemide 20 MG TABLET PO SCH (08:32)
[2019-12-26] MEDS: hydrALAZINE 25 MG TABLET PO SCH ×4 (08:32→21:30)
[2019-12-26] MEDS: Spironolactone 25 MG TABLET PO SCH (08:32)
[2019-12-26] MEDS: Isosorbide MONOnitrate (24 HR) 30 MG TAB.ER.24H PO SCH (08:32)
[2019-12-26] MEDS: carvediloL 6.25 MG TABLET PO SCH ×2 (08:33→17:15)
[2019-12-26] MEDS ORDERED: *HR* Heparin 10,000 UNIT/10 ML VIAL IV PRN (10:44)
[2019-12-26] MEDS: predniSONE 10 MG TABLET PO SCH (13:12)
[2019-12-26] MEDS: *HR* LORazepam 0.5 MG TABLET PO PRN (13:16)
[2019-12-26] MEDS ORDERED: 0.9 % Sodium Chloride 250 ML IV ONE (18:15)
[2019-12-26 19:19] LABS: Hematocrit 39.4 % (35.3-44.9); Hemoglobin 12.4 g/dL (11.5-15.4); Mean Corpuscular HGB Conc 31.5 g/dL (31.6-35.5); Mean Corpuscular Hemoglobin 28.4 pg (28.0-33.3); Mean Corpuscular Volume 90.2 fL (83.0-100.0); Mean Platelet Volume 8.6 fL (9.4-12.4); Platelet Count 450 K/mcL (140-400); Red Blood Count 4.37 M/mcL (3.82-4.97); Red Cell Distribution Width 17.7 % (11.5-14.5)
[2019-12-26 19:55] LABS: Neutrophils # 14.1 K/mcL (1.6-8.9)
[2019-12-26 19:57] LABS: Anisocytosis 1+ (Not Present); Platelet Estimate Normal (Normal)
[2019-12-26] MEDS ORDERED: 0.9 % Sodium Chloride 250 ML ONE (20:56)
[2019-12-26] MEDS ORDERED: 0.9 % Sodium Chloride 250 ML IVC ONE (21:17)
[2019-12-27 04:38] LABS: Basophils % 0.2 %; Eosinophils # 0.3 K/mcL (0.0-0.6); Eosinophils % 1.9 %; Hematocrit 38.4 % (35.3-44.9); Immature Granulocytes % 7.1 % (0-4); Lymphocytes # 2.4 K/mcL (0.6-4.6); Lymphocytes % 18.3 %; Mean Corpuscular HGB Conc 31.3 g/dL (31.6-35.5); Mean Corpuscular Volume 89.5 fL (83.0-100.0); Mean Platelet Volume 8.6 fL (9.4-12.4); Monocytes % 7.5 %; Neutrophils # 8.6 K/mcL (1.6-8.9); Platelet Count 435 K/mcL (140-400); Red Blood Count 4.29 M/mcL (3.82-4.97); Red Cell Distribution Width 17.6 % (11.5-14.5); White Blood Count 13.2 K/mcL (4.3-11.1)
[2019-12-27 04:54] LABS: Calcium 8.8 mg/dL (8.6-10.3); Potassium 5.1 mEq/L (3.5-5.1)
[2019-12-27] MEDS: Budesonide Neb 0.5 MG/2 ML IH SCH ×2 (07:38→20:09)
[2019-12-27] MEDS ORDERED: *HR* Heparin 10,000 UNIT/10 ML VIAL IV PRN (08:23)
[2019-12-27] MEDS ORDERED: 0.9 % Sodium Chloride 250 ML IVC PRN ×2 (08:23→16:28)
[2019-12-27] MEDS ORDERED: 0.9 % Sodium Chloride 1,000 ML PRIME SCH (08:30)
[2019-12-27] MEDS: *HR* LORazepam 0.5 MG TABLET PO PRN ×2 (09:44→20:31)
[2019-12-27] MEDS: Apixaban 2.5 MG TABLET PO SCH ×2 (09:44→20:31)
[2019-12-27] MEDS ORDERED: *HR* Metoprolol 5 MG/5 ML VIAL IVP ONE ×2 (13:12→13:18)
[2019-12-27] MEDS: carvediloL 6.25 MG TABLET PO SCH ×2 (13:24→17:48)
[2019-12-27] MEDS: hydrALAZINE 25 MG TABLET PO SCH ×4 (13:58→20:32)
[2019-12-27] MEDS: Spironolactone 25 MG TABLET PO SCH (14:02)
[2019-12-27] MEDS: Torsemide 20 MG TABLET PO SCH (14:02)
[2019-12-27] MEDS: Isosorbide MONOnitrate (24 HR) 30 MG TAB.ER.24H PO SCH (14:02)
[2019-12-27] MEDS: predniSONE 10 MG TABLET PO SCH (14:50)
[2019-12-27] MEDS: levoFLOXacin 500 MG TABLET PO SCH (16:01)
[2019-12-27] MEDS ORDERED: 0.9 % Sodium Chloride 250 ML ONE (16:31)
[2019-12-28] MEDS: *HR* LORazepam 0.5 MG TABLET PO PRN ×3 (02:25→21:15)
[2019-12-28] MEDS: Apixaban 2.5 MG TABLET PO SCH ×2 (06:21→21:15)
[2019-12-28 06:51] LABS: Hematocrit 39.9 % (35.3-44.9); Hemoglobin 12.7 g/dL (11.5-15.4); Mean Corpuscular HGB Conc 31.8 g/dL (31.6-35.5); Mean Corpuscular Volume 91.1 fL (83.0-100.0); Mean Platelet Volume 8.9 fL (9.4-12.4); Platelet Count 445 K/mcL (140-400); Red Blood Count 4.38 M/mcL (3.82-4.97); Red Cell Distribution Width 17.4 % (11.5-14.5); White Blood Count 12.7 K/mcL (4.3-11.1)
[2019-12-28 07:14] LABS: Calcium 9.4 mg/dL (8.6-10.3)
[2019-12-28] MEDS: Budesonide Neb 0.5 MG/2 ML IH SCH ×2 (08:33→20:22)
[2019-12-28] MEDS: Torsemide 20 MG TABLET PO SCH (08:58)
[2019-12-28] MEDS: carvediloL 6.25 MG TABLET PO SCH ×2 (08:59→17:50)
[2019-12-28] MEDS: Isosorbide MONOnitrate (24 HR) 30 MG TAB.ER.24H PO SCH (08:59)
[2019-12-28] MEDS: Spironolactone 25 MG TABLET PO SCH (08:59)
[2019-12-28] MEDS: hydrALAZINE 25 MG TABLET PO SCH ×4 (08:59→21:17)
[2019-12-28] MEDS ORDERED: carvediloL 6.25 MG TABLET PO ONE (09:58)
[2019-12-28] MEDS: predniSONE 10 MG TABLET PO SCH (10:19)
[2019-12-28] MEDS: QUEtiapine Fumarate 25 MG TABLET PO SCH ×2 (10:19→21:16)
[2019-12-29] MEDS: *HR* LORazepam 0.5 MG TABLET PO PRN ×2 (05:25→10:12)
[2019-12-29] MEDS: Apixaban 2.5 MG TABLET PO SCH (05:26)
[2019-12-29] MEDS: Budesonide Neb 0.5 MG/2 ML IH SCH (07:16)
[2019-12-29 08:16] LABS: Hematocrit 40.1 % (35.3-44.9); Hemoglobin 12.3 g/dL (11.5-15.4); Mean Corpuscular HGB Conc 30.7 g/dL (31.6-35.5); Mean Corpuscular Hemoglobin 28.2 pg (28.0-33.3); Mean Platelet Volume 8.8 fL (9.4-12.4); Platelet Count 391 K/mcL (140-400); Red Blood Count 4.36 M/mcL (3.82-4.97); White Blood Count 10.4 K/mcL (4.3-11.1)
[2019-12-29] MEDS ORDERED: 0.9 % Sodium Chloride 250 ML IVC PRN (08:22)
[2019-12-29 08:27] LABS: Calcium 8.8 mg/dL (8.6-10.3)
[2019-12-29 08:28] LABS: Magnesium 1.5 mg/dL (1.6-2.6); Phosphorous 6.7 mg/dL (2.7-4.5)
[2019-12-29] MEDS: Spironolactone 25 MG TABLET PO SCH (09:57)
[2019-12-29] MEDS: hydrALAZINE 25 MG TABLET PO SCH (09:58)
[2019-12-29] MEDS: Isosorbide MONOnitrate (24 HR) 30 MG TAB.ER.24H PO SCH (09:59)
[2019-12-29] MEDS: Torsemide 20 MG TABLET PO SCH (10:02)
[2019-12-29] MEDS: carvediloL 6.25 MG TABLET PO SCH (10:02)
[2019-12-29] MEDS: levoFLOXacin 500 MG TABLET PO SCH (10:02)
[2019-12-29] MEDS: QUEtiapine Fumarate 25 MG TABLET PO SCH (10:02)
[2019-12-29 10:28] VITALS: BP 120/72
[2019-12-29] MEDS: predniSONE 10 MG TABLET PO SCH (11:16)
[2019-12-29] MEDS ORDERED: CloNIDine Patch 0.2 MG PATCH (WEEKLY) TD SCH (14:00)
== END 2019-12-29 11:42 | disposition home health service (06) | DRG 871 ==
LOC: EMEROOARM 07:23 → 2ANU 07:23 → SUATTDRO 10:06 → 2ANU 12:12 → SUATTDRO 12-26 11:48
PROVIDERS: ADMIT Internal Medicine; ATTEND Internal Medicine

== ENCOUNTER 2020-01-11 23:42 | Observation (INO) ==
[2020-01-11] MEDS ORDERED: levoFLOXacin 750 MG TABLET PO ONE (23:55)
[2020-01-11] MEDS ORDERED: Ipratropium/Albuterol Neb 3 ML IH ONE (23:55)
[2020-01-11] MEDS ORDERED: methylPREDNISolone 125 MG/2 ML VIAL IVP ONE (23:55)
[2020-01-11] MEDS ORDERED: Furosemide 40 MG/4 ML VIAL IVP ONE (23:56)
[2020-01-11] MEDS ORDERED: 0.9 % Sodium Chloride 500 ML IVC ONE (23:57)
[2020-01-12 03:49] LABS: Basophils # 0.1 K/mcL (0.0-0.2); Basophils % 0.3 %; Eosinophils # 0.1 K/mcL (0.0-0.6); Eosinophils % 0.5 %; Hematocrit 35.7 % (35.3-44.9); Immature Granulocytes % 1.6 % (0-4); Lymphocytes # 0.8 K/mcL (0.6-4.6); Lymphocytes % 5.5 %; Mean Corpuscular HGB Conc 30.8 g/dL (31.6-35.5); Mean Corpuscular Hemoglobin 28.1 pg (28.0-33.3); Mean Corpuscular Volume 91.1 fL (83.0-100.0); Mean Platelet Volume 9.3 fL (9.4-12.4); Monocytes # 0.3 K/mcL (0.0-1.3); Monocytes % 1.7 %; Neutrophils # 13.6 K/mcL (1.6-8.9); Platelet Count 290 K/mcL (140-400); Red Blood Count 3.92 M/mcL (3.82-4.97); Red Cell Distribution Width 17.2 % (11.5-14.5); Segmented Neutrophils % 90.4 %
[2020-01-12 04:07] LABS: INR 0.9; Prothrombin Time 10.5 Seconds (9.4-12.1)
[2020-01-12 04:11] LABS: Activated Partial Thrombo Time 27.9 Seconds (26.0-36.0)
[2020-01-12 04:17] LABS: Calcium 8.1 mg/dL (8.6-10.3); Potassium 6.5 mEq/L (3.5-5.1); Troponin I 0.06 ng/mL (< 0.04)
[2020-01-12] MEDS ORDERED: Insulin Regular, Human 100 UNIT/ML SQ ONE (04:17)
[2020-01-12] MEDS ORDERED: Albuterol Neb 1.25 MG/3 ML VIAL IH ONE (04:17)
[2020-01-12] MEDS ORDERED: Aspirin 81 MG TAB.CHEW PO ONE (04:20)
[2020-01-12 04:40] LABS: Bilirubin,Urine Negative (Negative); Blood,Urine Negative (Negative); Clarity,Urine Cloudy (Clear); Color,Urine Yellow (Yellow); Glucose,Urine (UA) Normal (Normal); Ketones,Urine Negative (Negative); Leukocyte Esterase,Urine Large (Negative); Nitrite,Urine Negative (Negative); PH,Urine 6.5 pH Units (5.0-8.0); Protein,Urine 30 mg/dL (Neg-Trace); Specific Gravity,Urine 1.011 (1.010-1.025); Urobilinogen,Urine Normal (Normal)
[2020-01-12 04:41] LABS: Bacteria,Urine None Seen per hpf (None-Few); Hyaline Casts,Urine None Seen per lpf (None-Few); Squamous Epithelial Cell,Urine Many per lpf (None-Few); WBC,Urine 30-50 per hpf (0-3)
[2020-01-12] MEDS: Calcium Gluconate 1gm/50mL 1 GM/50 ML BAG IVPB SCH ×2 (05:39→09:43)
[2020-01-12] MEDS ORDERED: Ondansetron 4 MG/2 ML VIAL IVP PRN (07:18)
[2020-01-12] MEDS ORDERED: Naloxone 0.4 MG/ML INJ IVP PRN (07:18)
[2020-01-12] MEDS ORDERED: Calcium Gluconate 1gm/50mL 1 GM/50 ML BAG IVPB ONE ×2 (07:22→14:07)
[2020-01-12] MEDS ORDERED: 0.9 % Sodium Chloride 250 ML IVC PRN (07:32)
[2020-01-12] MEDS ORDERED: 0.9 % Sodium Chloride 1,000 ML PRIME SCH (07:45)
[2020-01-12] MEDS ORDERED: Albuterol 2.5 MG/3 ML NEBULIZER IH SCH (08:00)
[2020-01-12] MEDS ORDERED: *HR* Heparin 10,000 UNIT/10 ML VIAL IV PRN (08:16)
[2020-01-12] MEDS ORDERED: *HR* Metoprolol 5 MG/5 ML VIAL IVP ONE (10:51)
[2020-01-12] MEDS: carvediloL 6.25 MG TABLET PO SCH ×2 (11:28→17:01)
[2020-01-12] MEDS: *HR* LORazepam 0.5 MG TABLET PO PRN ×2 (13:15→23:02)
[2020-01-12] MEDS: MethylPREDNISolone 40 MG/ML VIAL IVP SCH ×2 (14:10→23:03)
[2020-01-12] MEDS ORDERED: Loratadine 10 MG TABLET PO PRN (16:08)
[2020-01-12] MEDS ORDERED: carvediloL 6.25 MG TABLET PO SCH (17:00)
[2020-01-12] MEDS: hydrALAZINE 25 MG TABLET PO SCH ×2 (17:01→23:04)
[2020-01-12] MEDS: Apixaban 2.5 MG TABLET PO SCH (23:02)
[2020-01-13] MEDS ORDERED: *HR* Metoprolol 5 MG/5 ML VIAL IVP ONE ×2 (00:10→00:29)
[2020-01-13] MEDS ORDERED: *HR* LORazepam 2 MG/ML VIAL IVP ONE (00:42)
[2020-01-13] MEDS: *HR* Metoprolol 5 MG/5 ML VIAL IVP SCH ×2 (00:43→00:45)
[2020-01-13] MEDS: Apixaban 2.5 MG TABLET PO SCH ×2 (06:53→21:25)
[2020-01-13 06:56] LABS: Basophils % 0.2 %; Hematocrit 36.8 % (35.3-44.9); Hemoglobin 11.3 g/dL (11.5-15.4); Mean Corpuscular HGB Conc 30.7 g/dL (31.6-35.5); Mean Corpuscular Hemoglobin 27.8 pg (28.0-33.3); Mean Corpuscular Volume 90.6 fL (83.0-100.0); Mean Platelet Volume 9.4 fL (9.4-12.4); Monocytes # 0.8 K/mcL (0.0-1.3); Platelet Count 288 K/mcL (140-400); Red Blood Count 4.06 M/mcL (3.82-4.97); Red Cell Distribution Width 16.7 % (11.5-14.5); Segmented Neutrophils % 87.8 %; White Blood Count 15.9 K/mcL (4.3-11.1)
[2020-01-13 07:15] LABS: Calcium 8.7 mg/dL (8.6-10.3); Potassium 5.8 mEq/L (3.5-5.1)
[2020-01-13] MEDS ORDERED: 0.9 % Sodium Chloride 250 ML IVC PRN (07:25)
[2020-01-13] MEDS ORDERED: carvediloL 6.25 MG TABLET PO SCH (08:00)
[2020-01-13] MEDS: *HR* LORazepam 0.5 MG TABLET PO PRN ×2 (08:22→21:34)
[2020-01-13] MEDS: Piperacillin/Tazobactam 3.375 GM in 0.9 % Sodium Chloride Mini Bag 100 ML IVPB SCH ×2 (13:58→23:10)
[2020-01-13] MEDS: hydrALAZINE 25 MG TABLET PO SCH ×4 (13:59→21:25)
[2020-01-13] MEDS: Isosorbide MONOnitrate (24 HR) 30 MG TAB.ER.24H PO SCH (13:59)
[2020-01-13] MEDS: Torsemide 20 MG TABLET PO SCH (13:59)
[2020-01-13] MEDS: Magnesium Oxide 400 MG TABLET PO SCH (14:02)
[2020-01-13] MEDS: carvediloL 6.25 MG TABLET PO SCH (17:40)
[2020-01-14 01:29] LABS: Hematocrit 34.2 % (35.3-44.9); Hemoglobin 10.4 g/dL (11.5-15.4); Mean Corpuscular HGB Conc 30.4 g/dL (31.6-35.5); Mean Corpuscular Hemoglobin 27.4 pg (28.0-33.3); Mean Platelet Volume 9.9 fL (9.4-12.4); Platelet Count 250 K/mcL (140-400); Red Cell Distribution Width 16.7 % (11.5-14.5); White Blood Count 15.4 K/mcL (4.3-11.1)
[2020-01-14 01:46] LABS: Potassium 4.4 mEq/L (3.5-5.1)
[2020-01-14] MEDS: Apixaban 2.5 MG TABLET PO SCH (05:07)
[2020-01-14 07:12] VITALS: BP 117/74
[2020-01-14] MEDS: Isosorbide MONOnitrate (24 HR) 30 MG TAB.ER.24H PO SCH (08:47)
[2020-01-14] MEDS: hydrALAZINE 25 MG TABLET PO SCH (08:47)
[2020-01-14] MEDS: carvediloL 6.25 MG TABLET PO SCH (08:47)
[2020-01-14] MEDS: *HR* LORazepam 0.5 MG TABLET PO PRN (08:47)
[2020-01-14] MEDS: Torsemide 20 MG TABLET PO SCH (08:47)
[2020-01-14] MEDS: Magnesium Oxide 400 MG TABLET PO SCH (08:47)
[2020-01-14] MEDS ORDERED: MethylPREDNISolone 40 MG/ML VIAL IVP SCH (09:00)
== END 2020-01-14 10:39 | disposition home or self-care (01) ==
LOC: EMEROOARM 23:42 → 2NENU 23:42 → 2ANU 01-13 20:42
PROVIDERS: ADMIT Family Medicine; ATTEND Family Medicine

== ENCOUNTER 2020-01-26 17:24 | Inpatient (IN) ==
[2020-01-26 18:05] LABS: Basophils # 0.1 K/mcL (0.0-0.2); Basophils % 0.6 %; Eosinophils # 0.1 K/mcL (0.0-0.6); Eosinophils % 0.3 %; Hematocrit 31.9 % (35.3-44.9); Hemoglobin 9.9 g/dL (11.5-15.4); Immature Granulocytes % 2.4 % (0-4); Lymphocytes # 0.9 K/mcL (0.6-4.6); Lymphocytes % 6.2 %; Mean Corpuscular Volume 90.1 fL (83.0-100.0); Mean Platelet Volume 9.5 fL (9.4-12.4); Monocytes # 0.3 K/mcL (0.0-1.3); Monocytes % 2.2 %; Neutrophils # 12.6 K/mcL (1.6-8.9); Platelet Count 303 K/mcL (140-400); Red Blood Count 3.54 M/mcL (3.82-4.97); Red Cell Distribution Width 16.6 % (11.5-14.5); Segmented Neutrophils % 88.3 %; White Blood Count 14.3 K/mcL (4.3-11.1)
[2020-01-26 18:29] LABS: Calcium 8.7 mg/dL (8.6-10.3); Troponin I 0.05 ng/mL (< 0.04)
[2020-01-27] MEDS ORDERED: Naloxone 0.4 MG/ML INJ IVP PRN (00:01)
[2020-01-27] MEDS ORDERED: hydrALAZINE 25 MG TABLET PO PRN (00:13)
[2020-01-27] MEDS ORDERED: Menthol 9.1 MG LOZENGE PO PRN (00:39)
[2020-01-27] MEDS: Budesonide Neb 0.5 MG/2 ML IH SCH ×3 (00:40→20:21)
[2020-01-27] MEDS: Apixaban 2.5 MG TABLET PO SCH ×3 (00:49→19:59)
[2020-01-27] MEDS ORDERED: *HR* LORazepam 0.5 MG TABLET PO ONE (00:50)
[2020-01-27] MEDS ORDERED: *HR* Metoprolol 5 MG/5 ML VIAL IVP ONE ×4 (02:20→02:34)
[2020-01-27] MEDS ORDERED: Ipratropium/Albuterol Neb 3 ML IH ONE (02:36)
[2020-01-27] MEDS ORDERED: Ipratropium/Albuterol Neb 3 ML ONE (02:39)
[2020-01-27 03:43] LABS: Hematocrit 32.9 % (35.3-44.9); Hemoglobin 10.3 g/dL (11.5-15.4); Mean Corpuscular HGB Conc 31.3 g/dL (31.6-35.5); Mean Corpuscular Hemoglobin 28.8 pg (28.0-33.3); Mean Corpuscular Volume 91.9 fL (83.0-100.0); Mean Platelet Volume 9.6 fL (9.4-12.4); Platelet Count 335 K/mcL (140-400); Red Blood Count 3.58 M/mcL (3.82-4.97); Red Cell Distribution Width 16.6 % (11.5-14.5); White Blood Count 14.6 K/mcL (4.3-11.1)
[2020-01-27 03:53] LABS: INR 1.3
[2020-01-27 04:08] LABS: Albumin 3.6 g/dL (3.5-5.7); Albumin/Globulin Ratio 1.5 (1.1-2.2); Bilirubin,Total 0.3 mg/dL (0.3-1.0); Calcium 8.7 mg/dL (8.6-10.3); Globulin 2.4 g/dL (2.4-3.5); Magnesium 1.5 mg/dL (1.6-2.6); Phosphorous 6.5 mg/dL (2.7-4.5); Potassium 5.9 mEq/L (3.5-5.1)
[2020-01-27 04:19] LABS: Troponin I 0.05 ng/mL (< 0.04)
[2020-01-27] MEDS ORDERED: Ondansetron 4 MG/2 ML VIAL IVP ONE (06:36)
[2020-01-27] MEDS ORDERED: 0.9 % Sodium Chloride 1,000 ML PRIME SCH (07:45)
[2020-01-27] MEDS ORDERED: *HR* Heparin 10,000 UNIT/10 ML VIAL IV PRN (07:45)
[2020-01-27] MEDS ORDERED: 0.9 % Sodium Chloride 250 ML IVC PRN (07:45)
[2020-01-27] MEDS: Spironolactone 25 MG TABLET PO SCH (08:37)
[2020-01-27] MEDS: *HR* LORazepam 0.5 MG TABLET PO SCH ×4 (08:37→19:59)
[2020-01-27] MEDS: predniSONE 5 MG TABLET PO SCH (08:37)
[2020-01-27] MEDS: Torsemide 20 MG TABLET PO SCH (12:59)
[2020-01-27] MEDS: carvediloL 6.25 MG TABLET PO SCH ×2 (12:59→16:50)
[2020-01-27 14:05] LABS: ABG Base Excess -1 mEq/L (-2 to 3); ABG HCO3 23 mEq/L (21-27); ABG Oxygen Saturation 99 % (95-98); ABG PCO2 36 mmHg (35-45); ABG PH 7.42 pH Units (7.32-7.45); ABG PO2 118 mmHg (85-104); ABG TCO2 24 mEq/L (20-26)
[2020-01-28 05:18] LABS: Basophils % 0.3 %; Eosinophils # 0.3 K/mcL (0.0-0.6); Eosinophils % 2.8 %; Hematocrit 34.8 % (35.3-44.9); Hemoglobin 10.8 g/dL (11.5-15.4); Immature Granulocytes % 2.7 % (0-4); Lymphocytes # 3.1 K/mcL (0.6-4.6); Lymphocytes % 27.2 %; Mean Corpuscular Hemoglobin 28.6 pg (28.0-33.3); Mean Corpuscular Volume 92.1 fL (83.0-100.0); Mean Platelet Volume 9.3 fL (9.4-12.4); Monocytes # 0.8 K/mcL (0.0-1.3); Monocytes % 6.9 %; Neutrophils # 6.9 K/mcL (1.6-8.9); Platelet Count 331 K/mcL (140-400); Red Blood Count 3.78 M/mcL (3.82-4.97); Segmented Neutrophils % 60.1 %; White Blood Count 11.5 K/mcL (4.3-11.1)
[2020-01-28 05:37] LABS: Anisocytosis 1+ (Not Present); Platelet Estimate Normal (Normal)
[2020-01-28 05:47] LABS: Calcium 9.1 mg/dL (8.6-10.3); Potassium 4.6 mEq/L (3.5-5.1)
[2020-01-28] MEDS: predniSONE 5 MG TABLET PO SCH (08:23)
[2020-01-28] MEDS: Spironolactone 25 MG TABLET PO SCH (08:23)
[2020-01-28] MEDS: Torsemide 20 MG TABLET PO SCH (08:23)
[2020-01-28] MEDS: Apixaban 2.5 MG TABLET PO SCH ×2 (08:23→21:29)
[2020-01-28] MEDS: *HR* LORazepam 0.5 MG TABLET PO SCH ×4 (08:23→21:29)
[2020-01-28] MEDS: carvediloL 6.25 MG TABLET PO SCH ×2 (08:23→16:54)
[2020-01-28] MEDS: Budesonide Neb 0.5 MG/2 ML IH SCH ×3 (10:16→20:11)
[2020-01-28] MEDS ORDERED: carvediloL 6.25 MG TABLET PO ONE (15:10)
[2020-01-29 06:52] LABS: Potassium 4.7 mEq/L (3.5-5.1)
[2020-01-29] MEDS ORDERED: *HR* Heparin 10,000 UNIT/10 ML VIAL IV PRN (07:30)
[2020-01-29] MEDS ORDERED: 0.9 % Sodium Chloride 1,000 ML PRIME SCH (07:30)
[2020-01-29] MEDS ORDERED: 0.9 % Sodium Chloride 250 ML IVC PRN (07:30)
[2020-01-29] MEDS: carvediloL 6.25 MG TABLET PO SCH ×2 (08:02→15:56)
[2020-01-29] MEDS: Torsemide 20 MG TABLET PO SCH (08:07)
[2020-01-29] MEDS: Spironolactone 25 MG TABLET PO SCH (08:08)
[2020-01-29] MEDS: Apixaban 2.5 MG TABLET PO SCH ×2 (08:08→20:40)
[2020-01-29] MEDS: *HR* LORazepam 0.5 MG TABLET PO SCH ×4 (08:08→20:41)
[2020-01-29] MEDS: predniSONE 5 MG TABLET PO SCH (08:08)
[2020-01-29] MEDS: Budesonide Neb 0.5 MG/2 ML IH SCH ×2 (10:46→22:50)
[2020-01-29] MEDS ORDERED: levoFLOXacin 500 MG TABLET PO SCH (20:15)
[2020-01-29] MEDS ORDERED: Metoclopramide 10 MG/2 ML VIAL IVP ONE (20:34)
[2020-01-30 06:41] LABS: Calcium 9.5 mg/dL (8.6-10.3); Potassium 4.7 mEq/L (3.5-5.1)
[2020-01-30] MEDS: Torsemide 20 MG TABLET PO SCH (07:33)
[2020-01-30] MEDS: carvediloL 6.25 MG TABLET PO SCH (07:33)
[2020-01-30] MEDS: predniSONE 5 MG TABLET PO SCH (07:33)
[2020-01-30] MEDS: Spironolactone 25 MG TABLET PO SCH (07:33)
[2020-01-30] MEDS: *HR* LORazepam 0.5 MG TABLET PO SCH ×4 (07:33→22:15)
[2020-01-30] MEDS: Apixaban 2.5 MG TABLET PO SCH ×2 (07:33→22:15)
[2020-01-30] MEDS: Budesonide Neb 0.5 MG/2 ML IH SCH ×2 (10:19→21:34)
[2020-01-31 02:13] LABS: Basophils # 0.1 K/mcL (0.0-0.2); Basophils % 0.7 %; Eosinophils # 0.2 K/mcL (0.0-0.6); Eosinophils % 1.7 %; Hematocrit 33.5 % (35.3-44.9); Hemoglobin 10.2 g/dL (11.5-15.4); Immature Granulocytes % 2.3 % (0-4); Lymphocytes # 2.4 K/mcL (0.6-4.6); Mean Corpuscular HGB Conc 30.4 g/dL (31.6-35.5); Mean Corpuscular Hemoglobin 27.5 pg (28.0-33.3); Mean Corpuscular Volume 90.3 fL (83.0-100.0); Mean Platelet Volume 9.2 fL (9.4-12.4); Monocytes # 0.9 K/mcL (0.0-1.3); Monocytes % 7.5 %; Neutrophils # 8.2 K/mcL (1.6-8.9); Platelet Count 340 K/mcL (140-400); Red Blood Count 3.71 M/mcL (3.82-4.97); Red Cell Distribution Width 16.3 % (11.5-14.5); Segmented Neutrophils % 67.8 %; White Blood Count 12.1 K/mcL (4.3-11.1)
[2020-01-31 02:22] LABS: Calcium 8.5 mg/dL (8.6-10.3); Potassium 4.8 mEq/L (3.5-5.1)
[2020-01-31] MEDS ORDERED: Ondansetron 4 MG/2 ML VIAL IVP PRN (03:54)
[2020-01-31] MEDS ORDERED: 0.9 % Sodium Chloride 250 ML IVC PRN (07:41)
[2020-01-31] MEDS ORDERED: *HR* Heparin 10,000 UNIT/10 ML VIAL IV PRN (07:41)
[2020-01-31] MEDS: Apixaban 2.5 MG TABLET PO SCH (09:11)
[2020-01-31] MEDS: *HR* LORazepam 0.5 MG TABLET PO SCH ×2 (09:12→12:48)
[2020-01-31] MEDS: predniSONE 5 MG TABLET PO SCH (09:12)
[2020-01-31] MEDS: Budesonide Neb 0.5 MG/2 ML IH SCH (09:44)
[2020-01-31 12:36] VITALS: BP 129/72
[2020-01-31] MEDS: Torsemide 20 MG TABLET PO SCH (12:47)
[2020-01-31] MEDS: Spironolactone 25 MG TABLET PO SCH (12:48)
== END 2020-01-31 13:04 | disposition home health service (06) | DRG 640 ==
LOC: 2ANU 17:24 → EMEROOARM 17:24 → 2ANU 20:46 → SUATTDRO 01-27 11:42
PROVIDERS: ADMIT Family Medicine; ATTEND Student in an Organized Health Care Education/Training Program

== ENCOUNTER 2020-02-23 02:20 | Observation (INO) ==
[2020-02-23] MEDS ORDERED: Ipratropium/Albuterol Neb 3 ML IH ONE (03:11)
[2020-02-23 03:15] LABS: Basophils # 0.1 K/mcL (0.0-0.2); Basophils % 0.5 %; Eosinophils # 0.1 K/mcL (0.0-0.6); Eosinophils % 0.5 %; Hematocrit 40.3 % (35.3-44.9); Hemoglobin 12.2 g/dL (11.5-15.4); Immature Granulocytes % 2.3 % (0-4); Lymphocytes # 1.4 K/mcL (0.6-4.6); Mean Corpuscular HGB Conc 30.3 g/dL (31.6-35.5); Mean Corpuscular Hemoglobin 28.2 pg (28.0-33.3); Mean Corpuscular Volume 93.1 fL (83.0-100.0); Mean Platelet Volume 9.5 fL (9.4-12.4); Monocytes # 0.4 K/mcL (0.0-1.3); Monocytes % 3.2 %; Neutrophils # 11.4 K/mcL (1.6-8.9); Platelet Count 320 K/mcL (140-400); Red Blood Count 4.33 M/mcL (3.82-4.97); Segmented Neutrophils % 83.5 %; White Blood Count 13.7 K/mcL (4.3-11.1)
[2020-02-23] MEDS ORDERED: methylPREDNISolone 125 MG/2 ML VIAL IVP ONE (03:31)
[2020-02-23 03:38] LABS: Albumin 4.1 g/dL (3.5-5.7); Albumin/Globulin Ratio 1.6 (1.1-2.2); Bilirubin,Total 0.4 mg/dL (0.3-1.0); Calcium 9.4 mg/dL (8.6-10.3); Globulin 2.5 g/dL (2.4-3.5); Total Protein 6.6 g/dL (6.4-8.9); Troponin I 0.03 ng/mL (< 0.04)
[2020-02-23] MEDS ORDERED: Sodium Bicarbonate 50 MEQ/50 ML VIAL IVP ONE (04:15)
[2020-02-23] MEDS ORDERED: *HR* Dextrose 50 % in Water (Vial) 50 ML VIAL IVP ONE (04:17)
[2020-02-23] MEDS ORDERED: Calcium Gluconate 1gm/50mL 1 GM/50 ML BAG IVPB ONE (04:23)
[2020-02-23] MEDS ORDERED: Insulin Human Regular 5 UNIT in 0.9 % Sodium Chloride 10 ML IV ONE (04:30)
[2020-02-23] MEDS ORDERED: cefTRIAXone 1,000 MG in Water for inj. (sterile) 10 ML IVP STA (05:55)
[2020-02-23] MEDS ORDERED: Azithromycin 500 MG in D5% in Water 250 ML IVPB ONE (05:55)
[2020-02-23] MEDS ORDERED: Naloxone 0.4 MG/ML INJ IVP PRN ×2 (06:09→07:14)
[2020-02-23] MEDS ORDERED: Ondansetron 4 MG/2 ML VIAL IVP PRN (06:09)
[2020-02-23] MEDS ORDERED: Isosorbide MONOnitrate (24 HR) 30 MG TAB.ER.24H PO PRN (07:17)
[2020-02-23] MEDS ORDERED: Ondansetron ODT 4 MG TAB.RAPDIS PO PRN (07:17)
[2020-02-23] MEDS ORDERED: 0.9 % Sodium Chloride 250 ML IVC PRN (08:01)
[2020-02-23] MEDS ORDERED: *HR* Heparin 10,000 UNIT/10 ML VIAL IV PRN (08:01)
[2020-02-23] MEDS ORDERED: 0.9 % Sodium Chloride 1,000 ML PRIME SCH (08:15)
[2020-02-23] MEDS: Spironolactone 25 MG TABLET PO SCH (09:53)
[2020-02-23] MEDS: Torsemide 20 MG TABLET PO SCH (09:53)
[2020-02-23] MEDS: *HR* LORazepam 0.5 MG TABLET PO SCH ×4 (09:53→20:23)
[2020-02-23] MEDS: Apixaban 2.5 MG TABLET PO SCH ×2 (09:53→20:23)
[2020-02-23] MEDS: Magnesium Oxide 400 MG TABLET PO SCH (09:53)
[2020-02-23] MEDS: predniSONE 20 MG TABLET PO SCH (09:54)
[2020-02-23] MEDS: Metoprolol 100 MG TABLET PO SCH ×2 (09:54→20:25)
[2020-02-24 00:35] LABS: Basophils % 0.1 %; Hematocrit 37.5 % (35.3-44.9); Hemoglobin 11.8 g/dL (11.5-15.4); Immature Granulocytes % 1.1 % (0-4); Lymphocytes # 0.9 K/mcL (0.6-4.6); Lymphocytes % 6.5 %; Mean Corpuscular HGB Conc 31.5 g/dL (31.6-35.5); Mean Corpuscular Hemoglobin 29.4 pg (28.0-33.3); Mean Corpuscular Volume 93.5 fL (83.0-100.0); Mean Platelet Volume 9.6 fL (9.4-12.4); Monocytes # 0.6 K/mcL (0.0-1.3); Monocytes % 4.4 %; Neutrophils # 12.5 K/mcL (1.6-8.9); Platelet Count 293 K/mcL (140-400); Red Blood Count 4.01 M/mcL (3.82-4.97); Red Cell Distribution Width 18.1 % (11.5-14.5); Segmented Neutrophils % 87.9 %; White Blood Count 14.2 K/mcL (4.3-11.1)
[2020-02-24 00:43] LABS: INR 1.2; Prothrombin Time 13.6 Seconds (9.4-12.1)
[2020-02-24 00:46] LABS: Activated Partial Thrombo Time 28.2 Seconds (26.0-36.0)
[2020-02-24 00:55] LABS: Magnesium 1.9 mg/dL (1.6-2.6); Phosphorous 4.5 mg/dL (2.7-4.5); Potassium 5.3 mEq/L (3.5-5.1)
[2020-02-24] MEDS ORDERED: 0.9 % Sodium Chloride 250 ML IVC PRN (07:48)
[2020-02-24] MEDS ORDERED: *HR* Heparin 10,000 UNIT/10 ML VIAL IV PRN (07:48)
[2020-02-24] MEDS: predniSONE 20 MG TABLET PO SCH (07:52)
[2020-02-24] MEDS: Magnesium Oxide 400 MG TABLET PO SCH (07:52)
[2020-02-24] MEDS: *HR* LORazepam 0.5 MG TABLET PO SCH (07:52)
[2020-02-24] MEDS: Metoprolol 100 MG TABLET PO SCH (07:53)
[2020-02-24] MEDS: Apixaban 2.5 MG TABLET PO SCH (07:53)
[2020-02-24] MEDS: Spironolactone 25 MG TABLET PO SCH (07:53)
[2020-02-24] MEDS ORDERED: 0.9 % Sodium Chloride 1,000 ML PRIME SCH (08:00)
[2020-02-24] MEDS: Torsemide 20 MG TABLET PO SCH (10:36)
[2020-02-24 10:57] VITALS: BP 116/74
== END 2020-02-24 10:57 | disposition home health service (06) ==
LOC: EMEROOARM 02:20 → 2NNU 02:20 → SUATTDRO 08:51 → 2NNU 09:18
PROVIDERS: ADMIT Internal Medicine; ATTEND Internal Medicine

== ENCOUNTER 2020-03-04 02:29 | Inpatient (IN) ==
[2020-03-04 04:47] LABS: ABG Base Excess -7 mEq/L (-2 to 3); ABG HCO3 22 mEq/L (21-27); ABG Oxygen Saturation 98 % (95-98); ABG PCO2 54 mmHg (35-45); ABG PH 7.21 pH Units (7.32-7.45); ABG PO2 119 mmHg (85-104); ABG TCO2 23 mEq/L (20-26)
[2020-03-04] MEDS ORDERED: Nitroglycerin 1 INCH/GM PACKET TP ONE ×2 (04:54)
[2020-03-04 05:04] LABS: Adenovirus Not Detected (Not Detect); Bordetella Pertussis Not Detected (Not Detect); Chlamydophila pneumoniae Not Detected (Not Detect); Coronavirus 229E Not Detected (Not Detect); Coronavirus HKU1 Not Detected (Not Detect); Coronavirus NL63 Not Detected (Not Detect); Coronavirus OC43 Not Detected (Not Detect); Human Metapneumovirus Not Detected (Not Detect); Human Rhinovirus/Enterovirus Not Detected (Not Detect); Influenza A Subtype 2009 H1 Not Detected (Not Detect); Influenza B Not Detected (Not Detect); Mycoplasma pneumoniae Not Detected (Not Detect); Parainfluenza Virus 1 Not Detected (Not Detect); Parainfluenza Virus 2 Not Detected (Not Detect); Parainfluenza Virus 3 Not Detected (Not Detect); Parainfluenza Virus 4 Not Detected (Not Detect); Respiratory Syncytial Virus Not Detected (Not Detect)
[2020-03-04 05:20] LABS: Basophils # 0.1 K/mcL (0.0-0.2); Basophils % 0.7 %; Eosinophils # 0.2 K/mcL (0.0-0.6); Eosinophils % 1.6 %; Hematocrit 38.7 % (35.3-44.9); Hemoglobin 11.8 g/dL (11.5-15.4); Immature Granulocytes % 2.3 % (0-4); Lymphocytes # 3.2 K/mcL (0.6-4.6); Lymphocytes % 22.4 %; Mean Corpuscular HGB Conc 30.5 g/dL (31.6-35.5); Mean Corpuscular Hemoglobin 28.2 pg (28.0-33.3); Mean Corpuscular Volume 92.4 fL (83.0-100.0); Mean Platelet Volume 10.3 fL (9.4-12.4); Monocytes # 0.7 K/mcL (0.0-1.3); Monocytes % 4.8 %; Neutrophils # 9.7 K/mcL (1.6-8.9); Platelet Count 318 K/mcL (140-400); Red Blood Count 4.19 M/mcL (3.82-4.97); Segmented Neutrophils % 68.2 %; White Blood Count 14.2 K/mcL (4.3-11.1)
[2020-03-04 05:22] LABS: VBG HCO3 21 mEq/L (21-27); VBG PCO2 49 mmHg (41-51); VBG PH 7.24 pH Units (7.32-7.42); VBG PO2 97 mmHg (25-50)
[2020-03-04 05:44] LABS: Calcium 8.8 mg/dL (8.6-10.3); Magnesium 1.7 mg/dL (1.6-2.6); Phosphorous 7.1 mg/dL (2.7-4.5); Potassium 6.8 mEq/L (3.5-5.1); Troponin I 0.03 ng/mL (< 0.04)
[2020-03-04] MEDS ORDERED: Calcium Gluconate 1gm/50mL 1 GM/50 ML BAG IVPB ONE (05:46)
[2020-03-04] MEDS ORDERED: Insulin Human Regular 5 UNIT in 0.9 % Sodium Chloride 10 ML IV ONE (05:47)
[2020-03-04] MEDS ORDERED: *HR* Dextrose 50 % in Water (Vial) 50 ML VIAL IVP ONE (05:48)
[2020-03-04] MEDS ORDERED: Ondansetron 4 MG/2 ML VIAL IVP ONE ×2 (06:15→07:07)
[2020-03-04] MEDS ORDERED: Furosemide 120 MG in 0.9 % Sodium Chloride 50 ML IV ONE (07:06)
[2020-03-04] MEDS ORDERED: 0.9 % Sodium Chloride 250 ML IVC PRN (07:13)
[2020-03-04] MEDS ORDERED: 0.9 % Sodium Chloride 1,000 ML PRIME SCH (07:15)
[2020-03-04] MEDS ORDERED: Naloxone 0.4 MG/ML INJ IVP PRN (07:15)
[2020-03-04] MEDS ORDERED: Ondansetron ODT 4 MG TAB.RAPDIS PO PRN (08:49)
[2020-03-04] MEDS ORDERED: Isosorbide MONOnitrate (24 HR) 30 MG TAB.ER.24H PO PRN (08:49)
[2020-03-04] MEDS ORDERED: *HR* Heparin 10,000 UNIT/10 ML VIAL IV PRN (11:02)
[2020-03-04] MEDS: Budesonide Neb 0.5 MG/2 ML IH SCH ×2 (11:33→22:08)
[2020-03-04] MEDS: Albuterol 2.5 MG/3 ML NEBULIZER IH SCH ×2 (11:33→22:08)
[2020-03-04] MEDS: *HR* LORazepam 0.5 MG TABLET PO SCH ×4 (12:56→20:24)
[2020-03-04] MEDS: Renal Vitamin 1 CAP CAPSULE PO SCH (13:24)
[2020-03-04] MEDS: Magnesium Oxide 400 MG TABLET PO SCH (13:24)
[2020-03-04] MEDS: Apixaban 2.5 MG TABLET PO SCH ×2 (13:25→20:24)
[2020-03-04] MEDS: predniSONE 5 MG TABLET PO SCH (13:25)
[2020-03-04] MEDS: Metoprolol 100 MG TABLET PO SCH ×2 (13:30→20:24)
[2020-03-04] MEDS: Torsemide 20 MG TABLET PO SCH (13:31)
[2020-03-04 17:20] LABS: Calcium 7.7 mg/dL (8.6-10.3); Potassium 4.5 mEq/L (3.5-5.1)
[2020-03-05 03:45] LABS: Basophils # 0.1 K/mcL (0.0-0.2); Basophils % 0.7 %; Eosinophils # 0.3 K/mcL (0.0-0.6); Eosinophils % 2.4 %; Hematocrit 36.5 % (35.3-44.9); Hemoglobin 11.2 g/dL (11.5-15.4); Immature Granulocytes % 1.6 % (0-4); Lymphocytes # 2.4 K/mcL (0.6-4.6); Lymphocytes % 21.6 %; Mean Corpuscular HGB Conc 30.7 g/dL (31.6-35.5); Mean Corpuscular Volume 91.3 fL (83.0-100.0); Mean Platelet Volume 9.9 fL (9.4-12.4); Monocytes # 0.8 K/mcL (0.0-1.3); Monocytes % 6.8 %; Neutrophils # 7.5 K/mcL (1.6-8.9); Platelet Count 267 K/mcL (140-400); Red Cell Distribution Width 15.9 % (11.5-14.5); Segmented Neutrophils % 66.9 %; White Blood Count 11.2 K/mcL (4.3-11.1)
[2020-03-05 04:04] LABS: Calcium 8.7 mg/dL (8.6-10.3)
[2020-03-05] MEDS: Renal Vitamin 1 CAP CAPSULE PO SCH (07:55)
[2020-03-05] MEDS: Metoprolol 100 MG TABLET PO SCH (07:55)
[2020-03-05] MEDS: *HR* LORazepam 0.5 MG TABLET PO SCH (07:55)
[2020-03-05] MEDS: Torsemide 20 MG TABLET PO SCH (07:56)
[2020-03-05] MEDS: predniSONE 5 MG TABLET PO SCH (07:57)
[2020-03-05] MEDS: Magnesium Oxide 400 MG TABLET PO SCH (07:58)
[2020-03-05] MEDS: Apixaban 2.5 MG TABLET PO SCH (07:58)
[2020-03-05 10:23] VITALS: BP 105/66
[2020-03-05] MEDS: Albuterol 2.5 MG/3 ML NEBULIZER IH SCH (10:32)
[2020-03-05] MEDS: Budesonide Neb 0.5 MG/2 ML IH SCH (10:32)
== END 2020-03-05 12:53 | disposition home or self-care (01) | DRG 291 ==
LOC: EMEROOARM 02:29 → 2NNU 02:29 → SUATTDRO 10:58 → 2ANU 21:02
PROVIDERS: ADMIT Internal Medicine; ATTEND Internal Medicine

== ENCOUNTER 2020-03-10 05:41 | Observation (INO) ==
[2020-03-10 06:22] LABS: VBG HCO3 28 mEq/L (21-27); VBG PCO2 66 mmHg (41-51); VBG PH 7.24 pH Units (7.32-7.42); VBG PO2 122 mmHg (25-50)
[2020-03-10 06:25] LABS: Basophils # 0.1 K/mcL (0.0-0.2); Eosinophils # 0.2 K/mcL (0.0-0.6); Eosinophils % 1.6 %; Hematocrit 37.6 % (35.3-44.9); Hemoglobin 11.4 g/dL (11.5-15.4); Lymphocytes % 21.8 %; Mean Corpuscular HGB Conc 30.3 g/dL (31.6-35.5); Mean Corpuscular Hemoglobin 28.2 pg (28.0-33.3); Mean Corpuscular Volume 93.1 fL (83.0-100.0); Mean Platelet Volume 10.1 fL (9.4-12.4); Monocytes # 0.7 K/mcL (0.0-1.3); Monocytes % 4.9 %; Neutrophils # 9.5 K/mcL (1.6-8.9); Platelet Count 314 K/mcL (140-400); Red Blood Count 4.04 M/mcL (3.82-4.97); Red Cell Distribution Width 15.9 % (11.5-14.5); Segmented Neutrophils % 67.7 %
[2020-03-10 06:46] LABS: Albumin 3.6 g/dL (3.5-5.7); Albumin/Globulin Ratio 1.6 (1.1-2.2); Bilirubin,Direct 0.1 mg/dL (0.0-0.2); Bilirubin,Indirect 0.2 mg/dL (0.0-1.0); Bilirubin,Total 0.3 mg/dL (0.3-1.0); Calcium 8.8 mg/dL (8.6-10.3); Globulin 2.2 g/dL (2.4-3.5); Potassium 5.3 mEq/L (3.5-5.1); Total Protein 5.8 g/dL (6.4-8.9); Troponin I 0.03 ng/mL (< 0.04)
[2020-03-10] MEDS ORDERED: Furosemide 20 MG/2 ML VIAL IVP ONE (06:48)
[2020-03-10] MEDS ORDERED: Calcium Gluconate 1gm/50mL 1 GM/50 ML BAG IVPB ONE (06:49)
[2020-03-10] MEDS ORDERED: Ondansetron 4 MG/2 ML VIAL IVP PRN (07:37)
[2020-03-10] MEDS ORDERED: Naloxone 0.4 MG/ML INJ IVP PRN (07:37)
[2020-03-10] MEDS ORDERED: Isosorbide MONOnitrate (24 HR) 30 MG TAB.ER.24H PO PRN (07:38)
[2020-03-10] MEDS: Apixaban 2.5 MG TABLET PO SCH ×2 (09:29→21:16)
[2020-03-10] MEDS: predniSONE 5 MG TABLET PO SCH (09:29)
[2020-03-10] MEDS: Torsemide 20 MG TABLET PO SCH (09:30)
[2020-03-10] MEDS: Magnesium Oxide 400 MG TABLET PO SCH (09:30)
[2020-03-10] MEDS: Renal Vitamin 1 CAP CAPSULE PO SCH (09:30)
[2020-03-10] MEDS: Metoprolol 100 MG TABLET PO SCH ×2 (09:30→20:20)
[2020-03-10] MEDS: *HR* LORazepam 0.5 MG TABLET PO SCH ×4 (09:30→20:20)
[2020-03-10] MEDS: Spironolactone 25 MG TABLET PO SCH (09:30)
[2020-03-10] MEDS: Albuterol 2.5 MG/3 ML NEBULIZER IH SCH ×2 (09:43→21:07)
[2020-03-10] MEDS: Budesonide Neb 0.5 MG/2 ML IH SCH ×2 (09:44→21:08)
[2020-03-11 05:14] LABS: Basophils # 0.1 K/mcL (0.0-0.2); Basophils % 0.9 %; Eosinophils # 0.3 K/mcL (0.0-0.6); Eosinophils % 1.6 %; Hematocrit 36.6 % (35.3-44.9); Hemoglobin 11.4 g/dL (11.5-15.4); Immature Granulocytes % 1.6 % (0-4); Lymphocytes # 3.5 K/mcL (0.6-4.6); Lymphocytes % 22.6 %; Mean Corpuscular HGB Conc 31.1 g/dL (31.6-35.5); Mean Corpuscular Volume 93.1 fL (83.0-100.0); Mean Platelet Volume 9.9 fL (9.4-12.4); Monocytes # 0.9 K/mcL (0.0-1.3); Monocytes % 5.7 %; Neutrophils # 10.5 K/mcL (1.6-8.9); Platelet Count 290 K/mcL (140-400); Red Blood Count 3.93 M/mcL (3.82-4.97); Red Cell Distribution Width 15.4 % (11.5-14.5); Segmented Neutrophils % 67.6 %; White Blood Count 15.5 K/mcL (4.3-11.1)
[2020-03-11 05:34] LABS: Calcium 8.9 mg/dL (8.6-10.3); Magnesium 1.4 mg/dL (1.6-2.6); Phosphorous 4.8 mg/dL (2.7-4.5); Potassium 5.5 mEq/L (3.5-5.1)
[2020-03-11] MEDS ORDERED: *HR* Heparin 10,000 UNIT/10 ML VIAL IV PRN ×2 (07:51)
[2020-03-11] MEDS ORDERED: 0.9 % Sodium Chloride 250 ML IVC PRN (07:51)
[2020-03-11] MEDS ORDERED: 0.9 % Sodium Chloride 1,000 ML PRIME SCH (08:00)
[2020-03-11] MEDS ORDERED: 0.9 % Sodium Chloride 1,000 ML ONE (08:13)
[2020-03-11] MEDS: Budesonide Neb 0.5 MG/2 ML IH SCH (10:37)
[2020-03-11] MEDS: Albuterol 2.5 MG/3 ML NEBULIZER IH SCH (10:37)
[2020-03-11] MEDS: Spironolactone 25 MG TABLET PO SCH (12:05)
[2020-03-11] MEDS: Torsemide 20 MG TABLET PO SCH (12:05)
[2020-03-11] MEDS: Apixaban 2.5 MG TABLET PO SCH (12:05)
[2020-03-11] MEDS: Renal Vitamin 1 CAP CAPSULE PO SCH (12:05)
[2020-03-11] MEDS: predniSONE 5 MG TABLET PO SCH (12:05)
[2020-03-11] MEDS: *HR* LORazepam 0.5 MG TABLET PO SCH (12:06)
[2020-03-11] MEDS: Magnesium Oxide 400 MG TABLET PO SCH (12:06)
[2020-03-11] MEDS: Metoprolol 100 MG TABLET PO SCH (12:06)
[2020-03-11 12:50] VITALS: BP 129/84
== END 2020-03-11 13:17 | disposition home or self-care (01) ==
LOC: 2NNU 05:41 → EMEROOARM 05:41 → SUATTDRO 07:43 → 2NNU 08:35 → CDU 14:32
PROVIDERS: ADMIT Student in an Organized Health Care Education/Training Program; ATTEND Internal Medicine

== ENCOUNTER 2020-04-01 03:37 | Inpatient (IN) ==
[2020-04-01] MEDS ORDERED: Calcium Gluconate 1gm/50mL 1 GM/50 ML BAG IVPB PRN (03:50)
[2020-04-01] MEDS ORDERED: *HR* Dextrose 50 % in Water (Vial) 50 ML VIAL IVP ONE (04:00)
[2020-04-01] MEDS ORDERED: Insulin Human Regular 5 UNIT in 0.9 % Sodium Chloride 10 ML IV ONE (04:00)
[2020-04-01] MEDS ORDERED: Ipratropium/Albuterol Neb 3 ML IH ONE (04:00)
[2020-04-01 04:15] LABS: Basophils # 0.1 K/mcL (0.0-0.2); Basophils % 0.3 %; Eosinophils % 0.2 %; Hematocrit 37.9 % (35.3-44.9); Hemoglobin 11.3 g/dL (11.5-15.4); Immature Granulocytes % 1.8 % (0-4); Lymphocytes # 2.4 K/mcL (0.6-4.6); Lymphocytes % 15.9 %; Mean Corpuscular HGB Conc 29.8 g/dL (31.6-35.5); Mean Corpuscular Hemoglobin 27.8 pg (28.0-33.3); Mean Corpuscular Volume 93.3 fL (83.0-100.0); Mean Platelet Volume 9.6 fL (9.4-12.4); Monocytes # 0.5 K/mcL (0.0-1.3); Monocytes % 3.5 %; Neutrophils # 11.7 K/mcL (1.6-8.9); Nucleated Red Blood Cells 0.1 /100 WBC (0); Platelet Count 301 K/mcL (140-400); Red Blood Count 4.06 M/mcL (3.82-4.97); Red Cell Distribution Width 17.1 % (11.5-14.5); Segmented Neutrophils % 78.3 %
[2020-04-01] MEDS ORDERED: Ondansetron 4 MG/2 ML VIAL IVP ONE (04:26)
[2020-04-01] MEDS ORDERED: Furosemide 40 MG/4 ML VIAL IVP ONE (04:33)
[2020-04-01 04:39] LABS: Calcium 8.6 mg/dL (8.6-10.3); Potassium 5.8 mEq/L (3.5-5.1)
[2020-04-01 04:40] LABS: Troponin I 0.03 ng/mL (< 0.04)
[2020-04-01] MEDS ORDERED: Ondansetron 4 MG/2 ML VIAL IVP PRN (05:10)
[2020-04-01] MEDS ORDERED: Naloxone 0.4 MG/ML INJ IVP PRN (05:10)
[2020-04-01] MEDS ORDERED: *HR* Heparin 10,000 UNIT/10 ML VIAL IV PRN (07:15)
[2020-04-01] MEDS ORDERED: 0.9 % Sodium Chloride 1,000 ML PRIME SCH (07:15)
[2020-04-01] MEDS ORDERED: 0.9 % Sodium Chloride 250 ML IVC PRN (07:15)
[2020-04-01] MEDS: Apixaban 2.5 MG TABLET PO SCH ×2 (09:53→21:03)
[2020-04-01 10:53] LABS: Magnesium 1.7 mg/dL (1.6-2.6); Phosphorous 2.2 mg/dL (2.7-4.5)
[2020-04-01] MEDS ORDERED: Ondansetron ODT 4 MG TAB.RAPDIS PO PRN (19:05)
[2020-04-01] MEDS: Albuterol 2.5 MG/3 ML NEBULIZER IH SCH (21:44)
[2020-04-01] MEDS: Budesonide Neb 0.5 MG/2 ML IH SCH (21:44)
[2020-04-02 04:56] LABS: Hematocrit 37.4 % (35.3-44.9); Hemoglobin 11.5 g/dL (11.5-15.4); Mean Corpuscular HGB Conc 30.7 g/dL (31.6-35.5); Mean Corpuscular Hemoglobin 28.6 pg (28.0-33.3); Mean Platelet Volume 9.9 fL (9.4-12.4); Platelet Count 267 K/mcL (140-400); Red Blood Count 4.02 M/mcL (3.82-4.97); Red Cell Distribution Width 17.1 % (11.5-14.5); White Blood Count 10.8 K/mcL (4.3-11.1)
[2020-04-02 05:21] LABS: Potassium 4.1 mEq/L (3.5-5.1)
[2020-04-02] MEDS ORDERED: Spironolactone 25 MG TABLET PO SCH (09:00)
[2020-04-02] MEDS ORDERED: Torsemide 20 MG TABLET PO SCH (09:00)
[2020-04-02] MEDS ORDERED: Magnesium Oxide 400 MG TABLET PO SCH (09:00)
[2020-04-02] MEDS ORDERED: Renal Vitamin 1 CAP CAPSULE PO SCH (09:00)
[2020-04-02] MEDS ORDERED: Budesonide/Formoterol 160/4.5 1 PUFF INH IH SCH (09:00)
[2020-04-02] MEDS ORDERED: Roflumilast [Daliresp] 500 MCG PO SCH (09:00)
[2020-04-02] MEDS ORDERED: predniSONE 5 MG TABLET PO SCH (09:00)
[2020-04-02] MEDS: Apixaban 2.5 MG TABLET PO SCH (09:46)
[2020-04-02] MEDS: Albuterol 2.5 MG/3 ML NEBULIZER IH SCH (09:57)
[2020-04-02] MEDS: Budesonide Neb 0.5 MG/2 ML IH SCH (09:57)
[2020-04-02] MEDS ORDERED: Tiotropium 18 MCG inhalation IH SCH (10:00)
[2020-04-02 15:09] VITALS: BP 104/68
== END 2020-04-02 16:10 | disposition home health service (06) | DRG 291 ==
LOC: EMEROOARM 03:37 → 2ANU 03:37 → SUATTDRO 05:18 → 2ANU 05:22
PROVIDERS: ADMIT Family Medicine; ATTEND Internal Medicine

== ENCOUNTER 2020-04-11 05:14 | Inpatient (IN) ==
[2020-04-11] MEDS ORDERED: methylPREDNISolone 125 MG/2 ML VIAL IVP ONE (05:30)
[2020-04-11] MEDS ORDERED: Ipratropium/Albuterol Neb 3 ML IH ONE (05:30)
[2020-04-11 05:47] LABS: Basophils # 0.2 K/mcL (0.0-0.2); Basophils % 1.3 %; Eosinophils # 0.1 K/mcL (0.0-0.6); Eosinophils % 0.6 %; Hematocrit 46.5 % (35.3-44.9); Hemoglobin 13.5 g/dL (11.5-15.4); Immature Granulocytes % 3.8 % (0-4); Lymphocytes # 5.9 K/mcL (0.6-4.6); Lymphocytes % 42.7 %; Mean Corpuscular Hemoglobin 27.7 pg (28.0-33.3); Mean Corpuscular Volume 95.5 fL (83.0-100.0); Mean Platelet Volume 9.4 fL (9.4-12.4); Monocytes # 0.8 K/mcL (0.0-1.3); Monocytes % 5.5 %; Neutrophils # 6.4 K/mcL (1.6-8.9); Platelet Count 463 K/mcL (140-400); Red Blood Count 4.87 M/mcL (3.82-4.97); Segmented Neutrophils % 46.1 %; White Blood Count 13.9 K/mcL (4.3-11.1)
[2020-04-11 06:03] LABS: INR 0.9; Prothrombin Time 10.6 Seconds (9.4-12.1)
[2020-04-11 06:05] LABS: Activated Partial Thrombo Time 28.4 Seconds (26.0-36.0)
[2020-04-11 06:10] LABS: Alanine Aminotransferase 20 Units/L (7-52); Albumin 4.3 g/dL (3.5-5.7); Albumin/Globulin Ratio 1.6 (1.1-2.2); Alkaline Phosphatase 84 Units/L (34-104); Aspartate Amino Transferase 19 Units/L (13-39); BUN/Creatinine Ratio 5 (6-26); Bilirubin,Direct 0.1 mg/dL (0.0-0.2); Bilirubin,Indirect 0.2 mg/dL (0.0-1.0); Bilirubin,Total 0.3 mg/dL (0.3-1.0); Blood Urea Nitrogen 20 mg/dL (8-23); Calcium 9.3 mg/dL (8.6-10.3); Carbon Dioxide 23 mEq/L (23-29); Chloride 97 mEq/L (98-107); Creatine Kinase 15 Units/L (30-223); Globulin 2.7 g/dL (2.4-3.5); Glucose 256 mg/dL (70-105); Osmolality,Calculated 283 (280-300); Potassium 4.8 mEq/L (3.5-5.1); Sodium 131 mEq/L (136-145); eGFR For African Americans 15 (> 60); eGFR For Non-African Americans 12 (> 60)
[2020-04-11 06:11] LABS: Troponin I < 0.03 ng/mL (< 0.04)
[2020-04-11] MEDS: DilTIAZem 50 MG/50 ML IV.SOLN IVC SCH (06:52)
[2020-04-11] MEDS ORDERED: Naloxone 0.4 MG/ML INJ IVP PRN (07:13)
[2020-04-11] MEDS ORDERED: Ondansetron 4 MG/2 ML VIAL IVP PRN (07:13)
[2020-04-11] MEDS ORDERED: D5% in Water 1,000 ML IVC PRN (07:18)
[2020-04-11] MEDS ORDERED: *HR* Dextrose 50 % in Water (Vial) 50 ML VIAL IVP PRN (07:18)
[2020-04-11] MEDS ORDERED: Dextrose Gel 15 GM/37.5 ML TUBE PO PRN ×2 (07:18)
[2020-04-11 08:02] LABS: Adenovirus Not Detected (Not Detect); Bordetella Pertussis Not Detected (Not Detect); Chlamydophila pneumoniae Not Detected (Not Detect); Coronavirus 229E Not Detected (Not Detect); Coronavirus HKU1 Not Detected (Not Detect); Coronavirus NL63 Not Detected (Not Detect); Coronavirus OC43 Not Detected (Not Detect); Human Metapneumovirus Not Detected (Not Detect); Human Rhinovirus/Enterovirus Not Detected (Not Detect); Influenza A Subtype 2009 H1 Not Detected (Not Detect); Influenza B Not Detected (Not Detect); Mycoplasma pneumoniae Not Detected (Not Detect); Parainfluenza Virus 1 Not Detected (Not Detect); Parainfluenza Virus 2 Not Detected (Not Detect); Parainfluenza Virus 3 Not Detected (Not Detect); Parainfluenza Virus 4 Not Detected (Not Detect); Respiratory Syncytial Virus Not Detected (Not Detect); SARS-CoV-2 Not Detected (Not Detect)
[2020-04-11] MEDS: Metoprolol 100 MG TABLET PO SCH ×2 (09:46→20:23)
[2020-04-11] MEDS: Magnesium Oxide 400 MG TABLET PO SCH (09:46)
[2020-04-11] MEDS: Renal Vitamin 1 CAP CAPSULE PO SCH (09:46)
[2020-04-11] MEDS: Apixaban 2.5 MG TABLET PO SCH ×2 (09:46→20:24)
[2020-04-11] MEDS: Ipratropium/Albuterol Neb 3 ML IH SCH ×3 (10:50→21:52)
[2020-04-11] MEDS: Budesonide/Formoterol 160/4.5 1 PUFF INH IH SCH ×2 (10:50→21:52)
[2020-04-11] MEDS: Insulin LISPRO 300 UNITS/3 ML VIAL SQ SCH ×3 (11:52→20:24)
[2020-04-11] MEDS: *HR* LORazepam 0.5 MG TABLET PO SCH ×3 (11:52→20:23)
[2020-04-11] MEDS ORDERED: Insulin LISPRO 300 UNITS/3 ML VIAL SQ SCH (12:00)
[2020-04-11] MEDS ORDERED: Menthol 9.1 MG LOZENGE PO PRN (15:06)
[2020-04-11] MEDS: GuaiFENesin Liq 200 MG/10 ML UDC PO PRN (15:22)
[2020-04-11 20:57] LABS: Bilirubin,Urine Negative (Negative); Blood,Urine Negative (Negative); Clarity,Urine Clear (Clear); Color,Urine Yellow (Yellow); Glucose,Urine (UA) Normal (Normal); Ketones,Urine Negative (Negative); Leukocyte Esterase,Urine Negative (Negative); Nitrite,Urine Negative (Negative); Protein,Urine 100 mg/dL (Neg-Trace); Urobilinogen,Urine Normal (Normal)
[2020-04-11 21:00] LABS: Bacteria,Urine Few per hpf (None-Few); RBC,Urine 0-3 per hpf (0-3); Squamous Epithelial Cell,Urine Moderate per hpf (None-Few)
[2020-04-12] MEDS ORDERED: *HR* LORazepam 0.5 MG TABLET PO ONE (01:55)
[2020-04-12] MEDS: Ipratropium/Albuterol Neb 3 ML IH SCH ×4 (04:05→21:12)
[2020-04-12 05:17] LABS: Basophils % 0.2 %; Eosinophils % 0.1 %; Hematocrit 36.8 % (35.3-44.9); Hemoglobin 11.5 g/dL (11.5-15.4); Immature Granulocytes % 1.4 % (0-4); Lymphocytes # 1.4 K/mcL (0.6-4.6); Mean Corpuscular HGB Conc 31.3 g/dL (31.6-35.5); Mean Corpuscular Hemoglobin 28.8 pg (28.0-33.3); Mean Corpuscular Volume 92.2 fL (83.0-100.0); Mean Platelet Volume 9.4 fL (9.4-12.4); Monocytes # 1.1 K/mcL (0.0-1.3); Monocytes % 5.5 %; Neutrophils # 16.8 K/mcL (1.6-8.9); Platelet Count 390 K/mcL (140-400); Red Blood Count 3.99 M/mcL (3.82-4.97); Segmented Neutrophils % 85.8 %; White Blood Count 19.5 K/mcL (4.3-11.1)
[2020-04-12] MEDS: DilTIAZem 50 MG/50 ML IV.SOLN IVC SCH (05:30)
[2020-04-12 05:34] LABS: Calcium 9.1 mg/dL (8.6-10.3); Magnesium 1.5 mg/dL (1.6-2.6); Phosphorous 5.2 mg/dL (2.7-4.5); Potassium 5.4 mEq/L (3.5-5.1)
[2020-04-12] MEDS ORDERED: 0.9 % Sodium Chloride 250 ML IVC PRN (07:17)
[2020-04-12] MEDS ORDERED: 0.9 % Sodium Chloride 1,000 ML PRIME SCH (07:30)
[2020-04-12] MEDS: Renal Vitamin 1 CAP CAPSULE PO SCH (07:57)
[2020-04-12] MEDS: Torsemide 20 MG TABLET PO SCH (07:57)
[2020-04-12] MEDS: Apixaban 2.5 MG TABLET PO SCH ×2 (07:57→20:45)
[2020-04-12] MEDS: *HR* LORazepam 0.5 MG TABLET PO SCH ×4 (07:58→20:45)
[2020-04-12] MEDS: Metoprolol 100 MG TABLET PO SCH ×2 (07:58→20:45)
[2020-04-12] MEDS: Spironolactone 25 MG TABLET PO SCH (07:58)
[2020-04-12] MEDS: Magnesium Oxide 400 MG TABLET PO SCH (07:58)
[2020-04-12] MEDS: Insulin LISPRO 300 UNITS/3 ML VIAL SQ SCH ×4 (08:02→20:47)
[2020-04-12] MEDS ORDERED: *HR* Heparin 10,000 UNIT/10 ML VIAL IV PRN (08:16)
[2020-04-12] MEDS: Budesonide/Formoterol 160/4.5 1 PUFF INH IH SCH ×2 (11:12→21:12)
[2020-04-12] MEDS: GuaiFENesin Liq 200 MG/10 ML UDC PO PRN (20:46)
[2020-04-13] MEDS: Ipratropium/Albuterol Neb 3 ML IH SCH ×4 (03:41→22:10)
[2020-04-13 06:27] LABS: Basophils # 0.1 K/mcL (0.0-0.2); Basophils % 0.5 %; Eosinophils # 0.2 K/mcL (0.0-0.6); Eosinophils % 1.5 %; Hemoglobin 11.3 g/dL (11.5-15.4); Lymphocytes # 2.4 K/mcL (0.6-4.6); Lymphocytes % 16.3 %; Mean Corpuscular Hemoglobin 27.7 pg (28.0-33.3); Mean Corpuscular Volume 95.6 fL (83.0-100.0); Mean Platelet Volume 10.3 fL (9.4-12.4); Monocytes # 1.2 K/mcL (0.0-1.3); Monocytes % 7.9 %; Platelet Count 239 K/mcL (140-400); Red Blood Count 4.08 M/mcL (3.82-4.97); Red Cell Distribution Width 17.4 % (11.5-14.5); Segmented Neutrophils % 72.8 %; White Blood Count 14.8 K/mcL (4.3-11.1)
[2020-04-13 06:29] LABS: Neutrophils # 10.8 K/mcL (1.6-8.9)
[2020-04-13] MEDS ORDERED: 0.9 % Sodium Chloride 250 ML IVC PRN (06:55)
[2020-04-13 07:13] LABS: Calcium 8.6 mg/dL (8.6-10.3)
[2020-04-13] MEDS: Insulin LISPRO 300 UNITS/3 ML VIAL SQ SCH ×4 (07:25→21:07)
[2020-04-13] MEDS: Magnesium Oxide 400 MG TABLET PO SCH (08:06)
[2020-04-13] MEDS: Renal Vitamin 1 CAP CAPSULE PO SCH (08:06)
[2020-04-13] MEDS: Apixaban 2.5 MG TABLET PO SCH ×2 (08:06→21:07)
[2020-04-13] MEDS: *HR* LORazepam 0.5 MG TABLET PO SCH ×4 (08:07→21:07)
[2020-04-13] MEDS: Budesonide/Formoterol 160/4.5 1 PUFF INH IH SCH ×2 (10:24→22:10)
[2020-04-13] MEDS ORDERED: *HR* Heparin 10,000 UNIT/10 ML VIAL IV PRN (11:08)
[2020-04-13] MEDS: Spironolactone 25 MG TABLET PO SCH (12:58)
[2020-04-13] MEDS: Torsemide 20 MG TABLET PO SCH (12:58)
[2020-04-13] MEDS: Metoprolol 100 MG TABLET PO SCH ×2 (12:58→21:07)
[2020-04-14] MEDS: Ipratropium/Albuterol Neb 3 ML IH SCH ×2 (04:38→10:59)
[2020-04-14 05:01] LABS: Basophils # 0.1 K/mcL (0.0-0.2); Basophils % 0.5 %; Eosinophils # 0.3 K/mcL (0.0-0.6); Eosinophils % 2.3 %; Hematocrit 36.8 % (35.3-44.9); Hemoglobin 11.1 g/dL (11.5-15.4); Immature Granulocytes % 1.4 % (0-4); Lymphocytes # 2.1 K/mcL (0.6-4.6); Lymphocytes % 18.9 %; Mean Corpuscular HGB Conc 30.2 g/dL (31.6-35.5); Mean Corpuscular Hemoglobin 27.7 pg (28.0-33.3); Mean Corpuscular Volume 91.8 fL (83.0-100.0); Mean Platelet Volume 9.4 fL (9.4-12.4); Monocytes # 0.9 K/mcL (0.0-1.3); Monocytes % 8.4 %; Neutrophils # 7.6 K/mcL (1.6-8.9); Platelet Count 343 K/mcL (140-400); Red Blood Count 4.01 M/mcL (3.82-4.97); Red Cell Distribution Width 16.7 % (11.5-14.5); Segmented Neutrophils % 68.5 %
[2020-04-14 05:18] LABS: Calcium 8.7 mg/dL (8.6-10.3); Potassium 4.3 mEq/L (3.5-5.1)
[2020-04-14] MEDS: Insulin LISPRO 300 UNITS/3 ML VIAL SQ SCH ×2 (07:58→12:35)
[2020-04-14] MEDS: Spironolactone 25 MG TABLET PO SCH (08:30)
[2020-04-14] MEDS: Renal Vitamin 1 CAP CAPSULE PO SCH (08:31)
[2020-04-14] MEDS: Metoprolol 100 MG TABLET PO SCH (08:31)
[2020-04-14] MEDS: Magnesium Oxide 400 MG TABLET PO SCH (08:31)
[2020-04-14] MEDS: Apixaban 2.5 MG TABLET PO SCH (08:31)
[2020-04-14] MEDS: *HR* LORazepam 0.5 MG TABLET PO SCH ×2 (08:31→12:35)
[2020-04-14] MEDS: Torsemide 20 MG TABLET PO SCH (08:31)
[2020-04-14] MEDS: Budesonide/Formoterol 160/4.5 1 PUFF INH IH SCH (10:58)
[2020-04-14 11:00] VITALS: BP 112/70
== END 2020-04-14 13:10 | disposition home health service (06) | DRG 308 ==
LOC: EMEROOARM 05:14 → 2NNU 05:14 → SUATTDRO 08:10 → 2NNU 08:45 → SUATTDRO 04-12 14:43 → 2ANU 04-12 15:08
PROVIDERS: ADMIT Student in an Organized Health Care Education/Training Program; ATTEND Internal Medicine

== ENCOUNTER 2020-04-23 02:08 | Inpatient (IN) ==
[2020-04-23] MEDS ORDERED: Azithromycin 250 MG TABLET PO ONE (02:15)
[2020-04-23] MEDS ORDERED: methylPREDNISolone 125 MG/2 ML VIAL IVP ONE (02:15)
[2020-04-23] MEDS ORDERED: Ipratropium/Albuterol Neb 3 ML IH ONE (02:15)
[2020-04-23 03:03] LABS: Basophils # 0.1 K/mcL (0.0-0.2); Basophils % 0.8 %; Eosinophils # 0.1 K/mcL (0.0-0.6); Eosinophils % 0.9 %; Hematocrit 44.7 % (35.3-44.9); Hemoglobin 13.6 g/dL (11.5-15.4); Lymphocytes # 4.5 K/mcL (0.6-4.6); Lymphocytes % 29.2 %; Mean Corpuscular HGB Conc 30.4 g/dL (31.6-35.5); Mean Corpuscular Hemoglobin 28.8 pg (28.0-33.3); Mean Corpuscular Volume 94.5 fL (83.0-100.0); Mean Platelet Volume 9.6 fL (9.4-12.4); Monocytes # 0.7 K/mcL (0.0-1.3); Monocytes % 4.3 %; Neutrophils # 9.7 K/mcL (1.6-8.9); Platelet Count 453 K/mcL (140-400); Red Blood Count 4.73 M/mcL (3.82-4.97); Red Cell Distribution Width 16.4 % (11.5-14.5); Segmented Neutrophils % 62.8 %; White Blood Count 15.4 K/mcL (4.3-11.1)
[2020-04-23 03:10] LABS: Activated Partial Thrombo Time 30.1 Seconds (26.0-36.0)
[2020-04-23] MEDS ORDERED: Azithromycin 500 MG in 0.9 % Sodium Chloride 250 ML IVPB ONE (03:20)
[2020-04-23 03:25] LABS: Albumin 4.4 g/dL (3.5-5.7); Albumin/Globulin Ratio 1.5 (1.1-2.2); Bilirubin,Direct 0.2 mg/dL (0.0-0.2); Bilirubin,Indirect 0.3 mg/dL (0.0-1.0); Bilirubin,Total 0.5 mg/dL (0.3-1.0); Calcium 9.5 mg/dL (8.6-10.3); Potassium 4.1 mEq/L (3.5-5.1); Total Protein 7.4 g/dL (6.4-8.9)
[2020-04-23 03:26] LABS: Troponin I 0.03 ng/mL (< 0.04)
[2020-04-23 04:05] LABS: VBG HCO3 28 mEq/L (21-27); VBG PCO2 65 mmHg (41-51); VBG PH 7.24 pH Units (7.32-7.42); VBG PO2 46 mmHg (25-50)
[2020-04-23 04:06] LABS: Adenovirus Not Detected (Not Detect); Bordetella Pertussis Not Detected (Not Detect); Chlamydophila pneumoniae Not Detected (Not Detect); Coronavirus 229E Not Detected (Not Detect); Coronavirus HKU1 Not Detected (Not Detect); Coronavirus NL63 Not Detected (Not Detect); Coronavirus OC43 Not Detected (Not Detect); Human Metapneumovirus Not Detected (Not Detect); Human Rhinovirus/Enterovirus Not Detected (Not Detect); Influenza A Subtype 2009 H1 Not Detected (Not Detect); Influenza B Not Detected (Not Detect); Mycoplasma pneumoniae Not Detected (Not Detect); Parainfluenza Virus 1 Not Detected (Not Detect); Parainfluenza Virus 2 Not Detected (Not Detect); Parainfluenza Virus 3 Not Detected (Not Detect); Parainfluenza Virus 4 Not Detected (Not Detect); Respiratory Syncytial Virus Not Detected (Not Detect); SARS-CoV-2 Not Detected (Not Detect)
[2020-04-23] MEDS ORDERED: Ondansetron 4 MG/2 ML VIAL IVP ONE (04:20)
[2020-04-23] MEDS ORDERED: Acetaminophen 325 MG TABLET PO PRN (07:40)
[2020-04-23] MEDS ORDERED: Naloxone 0.4 MG/ML INJ IVP PRN (07:40)
[2020-04-23 11:03] LABS: RBC,Pleural Fluid 3000 RBC/mcL
[2020-04-23 11:30] LABS: Appearance of Pleural Fl Cloudy (Clear)
[2020-04-23 12:12] LABS: Basophils,Pleural Fluid 0 %; Eosinophils,Pleural Fluid 0 %
[2020-04-23 12:20] LABS: Glucose,Pleural Fluid 140 mg/dL (No Ref Range); LDH,Pleural Fluid 51 Units/L (No Ref Range); Total Protein,Pleural Fluid < 3.0 g/dL
[2020-04-23] MEDS: *HR* LORazepam 0.5 MG TABLET PO SCH ×2 (16:01→20:33)
[2020-04-23] MEDS ORDERED: Ipratropium/Albuterol Neb 3 ML IH PRN (16:09)
[2020-04-23] MEDS ORDERED: Dextrose Gel 15 GM/37.5 ML TUBE PO PRN ×2 (17:18)
[2020-04-23] MEDS ORDERED: D5% in Water 1,000 ML IVC PRN (17:18)
[2020-04-23] MEDS ORDERED: *HR* Dextrose 50 % in Water (Vial) 50 ML VIAL IVP PRN (17:18)
[2020-04-23] MEDS ORDERED: Vancomycin 1 EACH in 0.9 % Sodium Chloride 250 ML IVPB SCH (17:59)
[2020-04-23] MEDS: Piperacillin/Tazobactam 3.375 GM in 0.9 % Sodium Chloride Mini Bag 100 ML IVPB SCH (18:15)
[2020-04-23] MEDS: Metoprolol 100 MG TABLET PO SCH (20:33)
[2020-04-23] MEDS: Apixaban 2.5 MG TABLET PO SCH (20:34)
[2020-04-23] MEDS: Insulin LISPRO 300 UNITS/3 ML VIAL SQ SCH (21:03)
[2020-04-24] MEDS ORDERED: *HR* LORazepam 2 MG/ML VIAL IVP ONE (02:04)
[2020-04-24] MEDS: Piperacillin/Tazobactam 3.375 GM in 0.9 % Sodium Chloride Mini Bag 100 ML IVPB SCH ×2 (05:35→17:07)
[2020-04-24 07:58] LABS: Basophils # 0.1 K/mcL (0.0-0.2); Basophils % 0.3 %; Eosinophils # 0.1 K/mcL (0.0-0.6); Eosinophils % 0.4 %; Hematocrit 38.5 % (35.3-44.9); Immature Granulocytes % 1.1 % (0-4); Lymphocytes # 2.3 K/mcL (0.6-4.6); Lymphocytes % 12.6 %; Mean Corpuscular HGB Conc 30.1 g/dL (31.6-35.5); Mean Corpuscular Hemoglobin 28.3 pg (28.0-33.3); Mean Corpuscular Volume 93.9 fL (83.0-100.0); Mean Platelet Volume 9.6 fL (9.4-12.4); Monocytes % 5.3 %; Neutrophils # 14.9 K/mcL (1.6-8.9); Platelet Count 365 K/mcL (140-400); Red Cell Distribution Width 16.3 % (11.5-14.5); Segmented Neutrophils % 80.3 %; White Blood Count 18.5 K/mcL (4.3-11.1)
[2020-04-24] MEDS: Insulin LISPRO 300 UNITS/3 ML VIAL SQ SCH ×4 (08:08→21:16)
[2020-04-24] MEDS: Renal Vitamin 1 CAP CAPSULE PO SCH (08:09)
[2020-04-24] MEDS: Apixaban 2.5 MG TABLET PO SCH ×2 (08:09→21:15)
[2020-04-24 08:10] LABS: Calcium 8.6 mg/dL (8.6-10.3); Magnesium 1.5 mg/dL (1.6-2.6); Phosphorous 6.1 mg/dL (2.7-4.5); Potassium 4.5 mEq/L (3.5-5.1)
[2020-04-24] MEDS: Magnesium Oxide 400 MG TABLET PO SCH (08:10)
[2020-04-24] MEDS: predniSONE 5 MG TABLET PO SCH (08:10)
[2020-04-24] MEDS: *HR* LORazepam 0.5 MG TABLET PO SCH ×4 (08:10→21:15)
[2020-04-24 08:12] LABS: Hemoglobin 11.6 g/dL (11.5-15.4)
[2020-04-24] MEDS ORDERED: *HR* Heparin 10,000 UNIT/10 ML VIAL IV PRN (08:21)
[2020-04-24] MEDS ORDERED: 0.9 % Sodium Chloride 250 ML IVC PRN (08:21)
[2020-04-24 08:23] LABS: Thyroid Stimulating Hormone 1.839 mcIU/mL (0.340-5.600)
[2020-04-24] MEDS ORDERED: 0.9 % Sodium Chloride 1,000 ML PRIME SCH (08:30)
[2020-04-24] MEDS: Torsemide 20 MG TABLET PO SCH (14:17)
[2020-04-24] MEDS: Metoprolol 100 MG TABLET PO SCH ×2 (14:17→21:14)
[2020-04-24 19:22] LABS: Fluid Source for Albumin PLEURAL FLUID
[2020-04-25] MEDS: Piperacillin/Tazobactam 3.375 GM in 0.9 % Sodium Chloride Mini Bag 100 ML IVPB SCH ×2 (05:36→17:35)
[2020-04-25 06:31] LABS: Estimated Average Glucose 120 mg/dl
[2020-04-25 06:57] LABS: Basophils # 0.1 K/mcL (0.0-0.2); Basophils % 0.6 %; Eosinophils # 0.2 K/mcL (0.0-0.6); Eosinophils % 1.3 %; Hematocrit 40.1 % (35.3-44.9); Immature Granulocytes % 1.1 % (0-4); Lymphocytes # 2.3 K/mcL (0.6-4.6); Lymphocytes % 19.1 %; Mean Corpuscular HGB Conc 29.9 g/dL (31.6-35.5); Mean Corpuscular Hemoglobin 27.8 pg (28.0-33.3); Mean Corpuscular Volume 92.8 fL (83.0-100.0); Mean Platelet Volume 9.5 fL (9.4-12.4); Monocytes # 0.8 K/mcL (0.0-1.3); Monocytes % 6.6 %; Neutrophils # 8.6 K/mcL (1.6-8.9); Platelet Count 354 K/mcL (140-400); Red Blood Count 4.32 M/mcL (3.82-4.97); Red Cell Distribution Width 16.2 % (11.5-14.5); Segmented Neutrophils % 71.3 %
[2020-04-25 07:20] LABS: Calcium 9.2 mg/dL (8.6-10.3); Potassium 4.3 mEq/L (3.5-5.1)
[2020-04-25] MEDS: Insulin LISPRO 300 UNITS/3 ML VIAL SQ SCH ×4 (08:09→20:28)
[2020-04-25] MEDS: Renal Vitamin 1 CAP CAPSULE PO SCH (09:52)
[2020-04-25] MEDS: predniSONE 5 MG TABLET PO SCH (09:52)
[2020-04-25] MEDS: *HR* LORazepam 0.5 MG TABLET PO SCH ×4 (09:52→20:27)
[2020-04-25] MEDS: Metoprolol 100 MG TABLET PO SCH ×2 (09:52→20:27)
[2020-04-25] MEDS: Magnesium Oxide 400 MG TABLET PO SCH (09:53)
[2020-04-25] MEDS: Torsemide 20 MG TABLET PO SCH (09:53)
[2020-04-25] MEDS: Apixaban 2.5 MG TABLET PO SCH ×2 (09:53→20:27)
[2020-04-26 01:28] LABS: Basophils # 0.1 K/mcL (0.0-0.2); Basophils % 0.4 %; Eosinophils # 0.2 K/mcL (0.0-0.6); Hematocrit 37.4 % (35.3-44.9); Hemoglobin 11.2 g/dL (11.5-15.4); Immature Granulocytes % 0.9 % (0-4); Lymphocytes # 2.1 K/mcL (0.6-4.6); Lymphocytes % 12.5 %; Mean Corpuscular HGB Conc 29.9 g/dL (31.6-35.5); Mean Corpuscular Hemoglobin 27.9 pg (28.0-33.3); Mean Corpuscular Volume 93.3 fL (83.0-100.0); Mean Platelet Volume 9.7 fL (9.4-12.4); Monocytes # 0.8 K/mcL (0.0-1.3); Neutrophils # 13.2 K/mcL (1.6-8.9); Platelet Count 348 K/mcL (140-400); Red Blood Count 4.01 M/mcL (3.82-4.97); Red Cell Distribution Width 15.9 % (11.5-14.5); Segmented Neutrophils % 80.2 %; White Blood Count 16.5 K/mcL (4.3-11.1)
[2020-04-26 01:45] LABS: Albumin 3.3 g/dL (3.5-5.7); Calcium 8.7 mg/dL (8.6-10.3); Phosphorous 4.8 mg/dL (2.7-4.5); Potassium 4.7 mEq/L (3.5-5.1)
[2020-04-26] MEDS: Piperacillin/Tazobactam 3.375 GM in 0.9 % Sodium Chloride Mini Bag 100 ML IVPB SCH ×2 (05:29→17:45)
[2020-04-26] MEDS ORDERED: 0.9 % Sodium Chloride 250 ML IVC PRN (08:41)
[2020-04-26] MEDS: Insulin LISPRO 300 UNITS/3 ML VIAL SQ SCH ×4 (08:51→22:39)
[2020-04-26] MEDS: Metoprolol 100 MG TABLET PO SCH ×2 (09:10→22:39)
[2020-04-26] MEDS: Renal Vitamin 1 CAP CAPSULE PO SCH (09:10)
[2020-04-26] MEDS: predniSONE 5 MG TABLET PO SCH (09:11)
[2020-04-26] MEDS: *HR* LORazepam 0.5 MG TABLET PO SCH ×4 (09:11→22:38)
[2020-04-26] MEDS: Magnesium Oxide 400 MG TABLET PO SCH (09:11)
[2020-04-26] MEDS: Apixaban 2.5 MG TABLET PO SCH ×2 (09:12→22:39)
[2020-04-26] MEDS: Torsemide 20 MG TABLET PO SCH (09:16)
[2020-04-26] MEDS ORDERED: Fluconazole 150 MG TABLET PO ONE (12:39)
[2020-04-26] MEDS: Budesonide/Formoterol 160/4.5 1 PUFF INH IH SCH (20:08)
[2020-04-27 03:34] LABS: Basophils # 0.1 K/mcL (0.0-0.2); Basophils % 0.5 %; Eosinophils # 0.3 K/mcL (0.0-0.6); Eosinophils % 1.9 %; Hematocrit 39.2 % (35.3-44.9); Hemoglobin 12.1 g/dL (11.5-15.4); Immature Granulocytes % 1.4 % (0-4); Lymphocytes # 2.5 K/mcL (0.6-4.6); Lymphocytes % 18.5 %; Mean Corpuscular HGB Conc 30.9 g/dL (31.6-35.5); Mean Corpuscular Hemoglobin 28.5 pg (28.0-33.3); Mean Corpuscular Volume 92.2 fL (83.0-100.0); Mean Platelet Volume 9.5 fL (9.4-12.4); Monocytes # 0.8 K/mcL (0.0-1.3); Monocytes % 6.2 %; Neutrophils # 9.5 K/mcL (1.6-8.9); Platelet Count 351 K/mcL (140-400); Red Blood Count 4.25 M/mcL (3.82-4.97); Red Cell Distribution Width 15.8 % (11.5-14.5); Segmented Neutrophils % 71.5 %; White Blood Count 13.2 K/mcL (4.3-11.1)
[2020-04-27 03:58] LABS: Albumin 3.6 g/dL (3.5-5.7); Calcium 8.8 mg/dL (8.6-10.3); Phosphorous 4.3 mg/dL (2.7-4.5); Potassium 4.7 mEq/L (3.5-5.1)
[2020-04-27] MEDS: Piperacillin/Tazobactam 3.375 GM in 0.9 % Sodium Chloride Mini Bag 100 ML IVPB SCH (05:45)
[2020-04-27] MEDS ORDERED: 0.9 % Sodium Chloride 250 ML IVC PRN (07:32)
[2020-04-27] MEDS ORDERED: *HR* Heparin 10,000 UNIT/10 ML VIAL IV PRN (07:32)
[2020-04-27] MEDS: Budesonide/Formoterol 160/4.5 1 PUFF INH IH SCH (07:44)
[2020-04-27] MEDS ORDERED: 0.9 % Sodium Chloride 1,000 ML PRIME SCH (07:45)
[2020-04-27] MEDS: Torsemide 20 MG TABLET PO SCH (07:53)
[2020-04-27] MEDS: Apixaban 2.5 MG TABLET PO SCH (07:53)
[2020-04-27] MEDS: Renal Vitamin 1 CAP CAPSULE PO SCH (07:53)
[2020-04-27] MEDS: *HR* LORazepam 0.5 MG TABLET PO SCH ×2 (07:53→12:18)
[2020-04-27] MEDS: Magnesium Oxide 400 MG TABLET PO SCH (07:53)
[2020-04-27] MEDS: Insulin LISPRO 300 UNITS/3 ML VIAL SQ SCH ×2 (07:54→12:18)
[2020-04-27] MEDS: predniSONE 5 MG TABLET PO SCH (07:54)
[2020-04-27] MEDS: Metoprolol 100 MG TABLET PO SCH (07:55)
[2020-04-27] MEDS ORDERED: Tiotropium 18 MCG inhalation IH SCH (10:00)
[2020-04-27 11:44] VITALS: BP 119/69
== END 2020-04-27 14:55 | disposition home health service (06) | DRG 871 ==
LOC: EMEROOARM 02:08 → 2ANU 02:08 → SUATTDRO 05:22 → 3ANU 05:26
PROVIDERS: ADMIT Pharmacist; ATTEND Family Medicine

== ENCOUNTER 2020-05-13 04:47 | Observation (INO) ==
[2020-05-13 05:52] LABS: Basophils # 0.1 K/mcL (0.0-0.2); Basophils % 0.6 %; Eosinophils # 0.1 K/mcL (0.0-0.6); Eosinophils % 0.9 %; Hematocrit 36.8 % (35.3-44.9); Hemoglobin 11.3 g/dL (11.5-15.4); Immature Granulocytes % 1.9 % (0-4); Lymphocytes # 2.5 K/mcL (0.6-4.6); Lymphocytes % 17.2 %; Mean Corpuscular HGB Conc 30.7 g/dL (31.6-35.5); Mean Corpuscular Hemoglobin 27.8 pg (28.0-33.3); Mean Corpuscular Volume 90.6 fL (83.0-100.0); Mean Platelet Volume 10.1 fL (9.4-12.4); Monocytes # 0.7 K/mcL (0.0-1.3); Monocytes % 4.8 %; Neutrophils # 10.8 K/mcL (1.6-8.9); Platelet Count 306 K/mcL (140-400); Red Blood Count 4.06 M/mcL (3.82-4.97); Red Cell Distribution Width 15.2 % (11.5-14.5); Segmented Neutrophils % 74.6 %; White Blood Count 14.5 K/mcL (4.3-11.1)
[2020-05-13 06:03] LABS: BUN/Creatinine Ratio 8 (6-26); Blood Urea Nitrogen 49 mg/dL (8-23); Calcium 9.6 mg/dL (8.6-10.3); Carbon Dioxide 25 mEq/L (23-29); Chloride 96 mEq/L (98-107); Glucose 136 mg/dL (70-105); Osmolality,Calculated 287 (280-300); Potassium 5.3 mEq/L (3.5-5.1); Sodium 131 mEq/L (136-145); Troponin I < 0.03 ng/mL (< 0.04); eGFR For African Americans 9 (> 60); eGFR For Non-African Americans 7 (> 60)
[2020-05-13] MEDS ORDERED: Furosemide 40 MG/4 ML VIAL IVP ONE (07:19)
[2020-05-13] MEDS ORDERED: Naloxone 0.4 MG/ML INJ IVP PRN (07:55)
[2020-05-13] MEDS ORDERED: Ondansetron ODT 4 MG TAB.RAPDIS SL PRN (07:59)
[2020-05-13] MEDS ORDERED: Ipratropium/Albuterol Neb 3 ML IH PRN (07:59)
[2020-05-13] MEDS ORDERED: 0.9 % Sodium Chloride 250 ML IVC PRN (09:23)
[2020-05-13] MEDS: *HR* LORazepam 0.5 MG TABLET PO SCH ×4 (12:23→21:00)
[2020-05-13] MEDS ORDERED: *HR* Heparin 10,000 UNIT/10 ML VIAL ONE (12:56)
[2020-05-13] MEDS: Magnesium Oxide 400 MG TABLET PO SCH (14:03)
[2020-05-13] MEDS: Metoprolol 100 MG TABLET PO SCH ×2 (14:04→21:00)
[2020-05-13] MEDS: predniSONE 5 MG TABLET PO SCH (14:06)
[2020-05-13] MEDS: Apixaban 2.5 MG TABLET PO SCH ×2 (14:06→21:00)
[2020-05-13 14:47] LABS: Troponin I < 0.03 ng/mL (< 0.04)
[2020-05-13] MEDS: Torsemide 20 MG TABLET PO SCH (16:51)
[2020-05-13] MEDS: Budesonide/Formoterol 160/4.5 1 PUFF INH IH SCH (21:56)
[2020-05-14 04:30] LABS: Basophils # 0.1 K/mcL (0.0-0.2); Basophils % 0.6 %; Eosinophils # 0.1 K/mcL (0.0-0.6); Eosinophils % 0.7 %; Hematocrit 34.8 % (35.3-44.9); Hemoglobin 10.7 g/dL (11.5-15.4); Immature Granulocytes % 2.3 % (0-4); Lymphocytes # 2.2 K/mcL (0.6-4.6); Lymphocytes % 16.8 %; Mean Corpuscular HGB Conc 30.7 g/dL (31.6-35.5); Mean Corpuscular Hemoglobin 27.2 pg (28.0-33.3); Mean Corpuscular Volume 88.5 fL (83.0-100.0); Mean Platelet Volume 9.8 fL (9.4-12.4); Monocytes # 0.7 K/mcL (0.0-1.3); Neutrophils # 9.7 K/mcL (1.6-8.9); Platelet Count 286 K/mcL (140-400); Red Blood Count 3.93 M/mcL (3.82-4.97); Red Cell Distribution Width 15.3 % (11.5-14.5); Segmented Neutrophils % 74.6 %
[2020-05-14 04:42] LABS: Prothrombin Time 11.9 Seconds (9.4-12.1)
[2020-05-14 04:45] LABS: Activated Partial Thrombo Time 27.1 Seconds (26.0-36.0)
[2020-05-14 05:03] LABS: Magnesium 1.5 mg/dL (1.6-2.6); Phosphorous 3.6 mg/dL (2.7-4.5); Potassium 5.1 mEq/L (3.5-5.1)
[2020-05-14] MEDS: predniSONE 5 MG TABLET PO SCH (07:30)
[2020-05-14] MEDS: *HR* LORazepam 0.5 MG TABLET PO SCH ×2 (07:30→13:11)
[2020-05-14] MEDS: Magnesium Oxide 400 MG TABLET PO SCH (07:30)
[2020-05-14] MEDS: Apixaban 2.5 MG TABLET PO SCH (07:30)
[2020-05-14] MEDS: Metoprolol 100 MG TABLET PO SCH (07:31)
[2020-05-14] MEDS: Torsemide 20 MG TABLET PO SCH (07:31)
[2020-05-14] MEDS: Budesonide/Formoterol 160/4.5 1 PUFF INH IH SCH (08:05)
[2020-05-14 11:20] VITALS: BP 105/71
== END 2020-05-14 14:11 | disposition home health service (06) ==
LOC: EMEROOARM 04:47 → CDU 04:47 → SUATTDRO 08:13 → CDU 11:52 → 2ANU 16:35
PROVIDERS: ADMIT Internal Medicine; ATTEND Internal Medicine